=== PATIENT | male | born 1990 | race Caucasian/White ===

== ENCOUNTER 2019-08-23 23:52 | Inpatient (IN) | payer MEDICAID ==
[~2019-08-23] VITALS: Ht 182.9 cm; Wt 113.2 kg
[~2019-08-23 23:52] MED LIST: FAMO20TA5 PO; FERR325T72 PO; FOLI1TAB16 PO; GABA600T7 PO; HALO5TAB PO; HYDR25TA PO; LORA0.5T PO; MULT1TAB52 PO; OLAN5TAB3 PO; OXYC5CAP PO; PRAZ1CAP2 PO; SERT50TA PO; THIA100T57 PO; TRAZ-86 PO
[2019-08-24] VITALS (23 sets, daily range): BP systolic 91–155; BP diastolic 58–99
[2019-08-24] MEDS ORDERED: SUCCINYLCHOLINE 200 MG/10 ML VIAL. ONE (00:11)
[2019-08-24] MEDS ORDERED: PROPOFOL 50 ML IV ONE ×2 (00:21→02:17)
[2019-08-24 00:23] LABS: BASO # 0.1 x10^3/uL (0.0-0.2); BASO % 1 % (0-3); EOS # 0.1 x10^3/uL (0.0-0.7); EOS % 1 % (0-3); HEMATOCRIT 43.6 % (39.0-53.0); HEMOGLOBIN 14.4 g/dL (13.0-17.5); LYMPH # 1.4 x10^3/uL (1.0-4.8); LYMPH % 25 % (24-48); MEAN CORPUSCULAR HEMOGLOBIN 34 pg (25-35); MEAN CORPUSCULAR HGB CONC 33 g/dL (31-37); MEAN CORPUSCULAR VOLUME 104 fL (79-100); MONO # 0.4 x10^3/uL (0.0-1.1); MONO % 8 % (0-9); NEUT # 3.7 x10^3/uL (1.8-7.7); NEUT % 66 % (31-73); PLATELET COUNT 56 x10^3/uL (140-400); RED BLOOD COUNT 4.19 x10^6/uL (4.30-5.70); WHITE BLOOD COUNT 5.6 x10^3/uL (4.0-11.0)
[2019-08-24] MEDS: PROPOFOL 100 ML IV PRN ×6 (00:26→22:38)
[2019-08-24 00:35] LABS: CALCIUM 9.1 mg/dL (8.5-10.1); CREATININE 0.9 mg/dL (0.7-1.3); GFR 99.8; POTASSIUM 3.4 mmol/L (3.5-5.1)
[2019-08-24 00:38] LABS: ACETAMIN < 2 mcg/ml (10-30); ETHANOL 226 mg/dL (0-10); SALIC < 2.8 mg/dL (2.8-20.0)
--- NOTE | 2019-08-24 00:42 | PHYS DOC ---
Past Medical History Past Medical History: Depression, Schizophrenia Additional Past Medical Histor: TACHYCARDIA, alpha 1 antitrypsin deficiency, DDD Past Surgical History: No Surgical History Alcohol Use: Heavy Drug Use: None Adult General Chief Complaint Chief Complaint: OVERDOSE HPI HPI 29-year-old male with past medical history depression, alcohol abuse presents to the emergency department after intentional drug overdose as well as acute alcohol intoxication. She apparently took a handful of medications included Zoloft and gabapentin as well as drank alcohol tonight. Girlfriend called EMS. Patient arrived in the emergency department drowsy on exam, he was aggressive with regards to nursing staff and harm to himself. He was initially placed on 4. restraints. Given unknown amount of medications and concern for sedation and saturations already 88-90% on 3 L of oxygen, was elected to intubate the patient at that time via RSI. Review of systems initially unobtainable, patient was nonc ooperative. Review of Systems Review of Systems ROS unobtainable 2/2 AMS, ETOH intoxication All other systems were reviewed and found to be within normal limits, except as documented in this note. Current Medications Current Medications Current Medications Medications (Trade) Dose Ordered Sig/Renee Start Time Stop Time Status Last Admin Dose Admin Chlorhexidine Gluconate (Peridex) 15 ml BID 08/24/19 09:00 Etomidate (Amidate) 20 mg 1X ONCE 08/24/19 01:45 08/24/19 01:46 DC 08/24/19 02:09 20 MG Fentanyl Citrate (Fentanyl 2ml Vial) 50 mcg PRN Q1HR PRN 08/24/19 00:30 Midazolam HCl (Versed) 1 mg PRN Q30MIN PRN 08/24/19 00:30 Morphine Sulfate (Morphine Sulfate) 2 mg PRN Q1HR PRN 08/24/19 00:30 Propofol 50 ml @ As Directed STK-MED ONCE 08/24/19 00:21 08/24/19 00:22 DC Succinylcholine Chloride (Anectine) 100 mg 1X ONCE 08/24/19 01:45 08/24/19 01:46 DC 08/24/19 02:09 100 MG Allergies Allergies Allergies Coded Allergies Type Severity Reaction Last Updated Verified No Known Drug Allergies 06/25/17 No Physical Exam Physical Exam Constitutional: AMS, aggressive behavior, noncooperative HENT: Normocephalic, atraumatic, bilateral external ears normal, oropharynx moist, no oral exudates, nose normal. [] Eyes: pupils pinpoint on exam Neck: Normal range of motion, no tenderness, supple, no stridor. [] Cardiovascular: tachycardia Lungs & Thorax: Bilateral breath sounds clear to auscultation [] Abdomen: Bowel sounds normal, soft, no tenderness, no masses, no pulsatile masses. [] Skin: Warm, dry, no erythema, no rash. [] Extremities: No tenderness, no cyanosis, no edema. [] Neurologic: intoxicated, GCS 9-10 Psychologic: Aggressive, altered Current Patient Data Vital Signs Vital Signs Date Time Temp Pulse Resp B/P (MAP) Pulse Ox O2 Delivery O2 Flow Rate FiO2 08/24/19 01:13 98.0 138 20 156/73 (100) 88 Room Air 98.0 Lab Values Laboratory Tests Test 08/24/19 00:07 08/24/19 00:48 White Blood Count 5.6 x10^3/uL (4.0-11.0) Red Blood Count 4.19 x10^6/uL (4.30-5.70) L Hemoglobin 14.4 g/dL (13.0-17.5) Hematocrit 43.6 % (39.0-53.0) Mean Corpuscular Volume 104 fL (79-100) H Mean Corpuscular Hemoglobin 34 pg (25-35) Mean Corpuscular Hemoglobin Concent 33 g/dL (31-37) Red Cell Distribution Width 19.0 % (11.5-14.5) H Platelet Count 56 x10^3/uL (140-400) L Neutrophils (%) (Auto) 66 % (31-73) Lymphocytes (%) (Auto) 25 % (24-48) Monocytes (%) (Auto) 8 % (0-9) Eosinophils (%) (Auto) 1 % (0-3) Basophils (%) (Auto) 1 % (0-3) Neutrophils # (Auto) 3.7 x10^3/uL (1.8-7.7) Lymphocytes # (Auto) 1.4 x10^3/uL (1.0-4.8) Monocytes # (Auto) 0.4 x10^3/uL (0.0-1.1) Eosinophils # (Auto) 0.1 x10^3/uL (0.0-0.7) Basophils # (Auto) 0.1 x10^3/uL (0.0-0.2) Sodium Level 145 mmol/L (136-145) Potassium Level 3.4 mmol/L (3.5-5.1) L Chloride Level 107 mmol/L (98-107) Carbon Dioxide Level 22 mmol/L (21-32) Anion Gap 16 (6-14) H Blood Urea Nitrogen 2 mg/dL (8-26) L Creatinine 0.9 mg/dL (0.7-1.3) Estimated GFR (Cockcroft-Gault) 99.8 BUN/Creatinine Ratio 2 (6-20) L Glucose Level 167 mg/dL (70-99) H Calcium Level 9.1 mg/dL (8.5-10.1) Total Bilirubin 6.1 mg/dL (0.2-1.0) H Aspartate Amino Transferase (AST) 158 U/L (15-37) H Alanine Aminotransferase (ALT) 79 U/L (16-63) H Alkaline Phosphatase 292 U/L (46-116) H Total Protein 7.6 g/dL (6.4-8.2) Albumin 3.3 g/dL (3.4-5.0) L Albumin/Globulin Ratio 0.8 (1.0-1.7) L Salicylates Level < 2.8 mg/dL (2.8-20.0) L Salicylate Last Dose Date Salicylate Last Dose Time Acetaminophen Level < 2 mcg/ml (10-30) L Acetaminophen Last Dose Date Acetaminophen Last Dose Time Ethyl Alcohol Level 226 mg/dL (0-10) H Urine Collection Type U cath Urine Color [place] Urine Clarity Clear Urine pH 6.5 Urine Specific [place] 1.020 Urine Protein 100 mg/dL (NEG-TRACE) Urine Glucose (UA) Negative mg/dL (NEG) Urine Ketones (Stick) Negative mg/dL (NEG) Urine Blood Negative (NEG) Urine Nitrite Negative (NEG) Urine Bilirubin Moderate (NEG) Urine Urobilinogen Dipstick 0.2 mg/dL (0.2 mg/dL) Urine Leukocyte Esterase Small (NEG) Urine RBC Occ /HPF (0-2) Urine WBC 5-10 /HPF (0-4) Urine Squamous Epithelial Cells Occ /LPF Urine Bacteria 0 /HPF (0-FEW) Urine Cellular Casts Occ /HPF Urine Hyaline Casts Many /HPF Urine Granular Casts Occasional /HPF Urine Mucus Marked /LPF Laboratory Tests 08/24/19 00:07 Laboratory Tests 08/24/19 00:07 EKG EKG EKG reviewed, normal sinus rhythm, heart rate 94, no evidence of acute ST or T wave change appreciated.[] Interpretation Time: EKG interpretation time 0208 Radiology/Procedures Radiology/Procedures [facility] [address] [place] [address] IMAGING REPORT Signed PATIENT: DENISHA MCFARLAND ACCOUNT: [id number] : 1990 LOCATION: ER AGE: 29 SEX: M EXAM STATUS: REG ER ORD. PHYSICIAN: IRMA COOPER MD REASON: s/p intubation PROCEDURE: CHEST AP ONLY EXAM: CHEST 1 VIEW History: Intubation COMPARISON: 08/17/2019 TECHNIQUE: Single portable radiograph of the chest FINDINGS: The ET tube is identified in the trachea at the level of the clavicles. The feeding tube is seen below the diaphragm in the stomach. Mild prominent bilateral perihilar interstitial lung markings. IMPRESSION: 1. Mild prominent bilateral perihilar interstitial lung markings likely mild congestive changes. 2. ET tube, feeding tube in place. Electronically signed by: Scottie Daigle MD (08/24/2019 1:15 AM) [facility] DICTATED and SIGNED BY: SCOTTIE DAIGLE MD DATE: 08/24/19 0115 [] Course & Med Decision Making Course & Med Decision Making Pertinent Labs and Imaging studies reviewed. (See chart for details) []29-year-old male with past medical history depression, alcohol abuse presents to the emergency department after intentional drug overdose as well as acute alcohol intoxication. She apparently took a handful of medications included Zoloft and gabapentin as well as drank alcohol tonight. Girlfriend called EMS. Patient arrived in the emergency department drowsy on exam, he was aggressive with regards to nursing staff and harm to himself. He was initially placed on 4. restraints. Given unknown amount of medications and concern for sedation and saturations already 88-90% on 3 L of oxygen, was elected to intubate the patient at that time via RSI. Review of systems initially unobtainable, patient was noncooperative. Labs and imaging reviewed. Tylenol, salicylate, alcohol reviewed. ETOH 226. Chest x-ray reveals no evidence of acute consolidation. Again unknown amount of Zoloft and gabapentin taken. Poison control recommendations for evaluation of blood pressure watching for hypotension as well as tachycardia. Discussed admission with primary care physician (DR LUCIANO). Patient admitted to the ICU given to patient. Dragon Disclaimer Dragon Disclaimer This electronic medical record was generated, in whole or in part, using a voice recognition dictation system. Intubation Procedure Intub Indication: Intentional drug overdose, ETOH intoxication, desaturations, aggressive behavior, potential harm to himself and nursing staff Consent: Unable to give consent due to emergent nature. Medications Used: see nursing note Procedure: The patient was placed in the appropriate position. Intubation was performed MAC 4 with 7.5 endotracheal tube, 22 cm at teeth. Initial confirmation of placement included bilateral breath sounds, tube fogging, adequate chest rise, adequate pulse oximetry reading. A chest x-ray to verify correct placement of the tube showed appropriate tube position. The patient tolerated the procedure well. Complications: none. Departure Departure Impression: Primary Impression: Intentional overdose of drug in tablet form Additional Impressions: Aggressive behavior Alcohol intoxication Alcoholic hepatitis Disposition: 09 ADMITTED INPATIENT Admitting Physician: Sonam Luciano Condition: STABLE Referrals: SONAM LUCIANO MD (PCP) Problem Qualifiers Additional Impressions: Alcohol intoxication Complication of substance-induced condition: with unspecified complication Qualified Codes: F10.929 - Alcohol use, unspecified with intoxication, unspecified Alcoholic hepatitis Ascites presence: with ascites Qualified Codes: K70.11 - Alcoholic hepatitis with ascites IRMA COOPER MD Aug 24, 2019 00:42
[2019-08-24 00:43] LABS: ALBUMIN 3.3 g/dL (3.4-5.0); ALBUMIN/GLOBULIN RATIO 0.8 (1.0-1.7); TOTAL BILIRUBIN 6.1 mg/dL (0.2-1.0); TOTAL PROTEIN 7.6 g/dL (6.4-8.2)
[2019-08-24] MEDS ORDERED: ETOMIDATE 20 MG/10 ML VIAL. IV ONE ×2 (01:02→01:45)
[2019-08-24 01:03] LABS: BILIRUBIN,URINE MODERATE (NEG); CLARITY,URINE CLEAR; COLOR,URINE ORANGE; NITRITE,URINE NEGATIVE (NEG); PH,URINE 6.5; PROTEIN,URINE 100 mg/dL (NEG-TRACE); UROBILINOGEN,URINE 0.2 mg/dL (0.2 mg/dL)
[2019-08-24 01:14] LABS: BACTERIA,URINE 0 /HPF (0-FEW); RBC,URINE OCC /HPF (0-2)
[2019-08-24 01:15] LABS: GRANULAR CASTS,URINE OCCASIONAL /HPF; HYALINE CASTS, URINE MANY /HPF; SQUAMOUS EPITHELIAL CELL,UR OCC /LPF
--- NOTE | 2019-08-24 01:18 | RAD ---
EXAM: CHEST 1 VIEW History: Intubation COMPARISON: 08/17/2019 TECHNIQUE: Single portable radiograph of the chest FINDINGS: The ET tube is identified in the trachea at the level of the clavicles. The feeding tube is seen below the diaphragm in the stomach. Mild prominent bilateral perihilar interstitial lung markings. IMPRESSION: 1. Mild prominent bilateral perihilar interstitial lung markings likely mild congestive changes. 2. ET tube, feeding tube in place. Electronically signed by: Scottie Daigle MD (08/24/2019 1:15 AM) [facility]
[2019-08-24] MEDS ORDERED: SUCCINYLCHOLINE 200 MG/10 ML VIAL. IV ONE (01:45)
[2019-08-24 02:18] LABS: BASE EXCESS COOX -3 mmol/L (-3-3); HCO3 COOX 21 mmol/L (21-28); METHEMOGLOBIN 0.5 % (0.0-1.9); OXYHEMOGLOBIN 96.7 %; PCO2 COOX 37 mmHg (35-46); PO2 COOX 152 mmHg (85-108); SAT O2 COOX 99 % (92-99)
[2019-08-24] MEDS ORDERED: ONDANSETRON PF 4 MG/2 ML VIAL. IV PRN (02:30)
[2019-08-24] MEDS ORDERED: IV NORMAL SALINE 1000ML BAG 1,000 ML IV ONE (03:30)
[2019-08-24] MEDS: MIDAZOLAM HCL/PF 2 MG/2 ML VIAL. IV PRN ×2 (04:30→20:32)
[2019-08-24] MEDS: fentaNYL PF VIAL 100 MCG/2 ML VIAL IV PRN ×8 (04:30→22:39)
[2019-08-24] MEDS: IV NORMAL SALINE 1000ML BAG 1,000 ML IV SCH ×2 (04:35→13:31)
--- NOTE | 2019-08-24 06:13 | NUR ---
Patient admitted to ICU room 109 from ED. Report from DENNIS Maradiaga from the ED. Upon arrival to ICU patient with propofol infusing. Intubated, OG and singer in place. Family not present on admit. VSS and sedated but alert to pain. Will continue to monitor.
--- NOTE | 2019-08-24 07:36 | EKG ---
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
[2019-08-24] MEDS: IPRATRPIUM/ALBUTEROL 0.5/2.5MG 3 ML NEBU. NEB SCH ×4 (08:00→19:55)
[2019-08-24 08:34] LABS: BASE EXCESS ABG -3 mmol/L (-3-3); HCO3 ABG 21 mmol/L (21-28); PCO2 ABG 32 mmHg (35-46); PO2 ABG 101 mmHg (85-108); SAT O2 ABG 98 % (92-99)
[2019-08-24] MEDS: CHLORHEXIDINE 0.12% 15 ML MOUTHWASH. MM SCH ×2 (09:12→20:32)
[2019-08-24 09:52] LABS: FIO2 ABG 60
--- NOTE | 2019-08-24 10:25 | HP ---
ADMIT DATE: 08/24/2019 CHIEF COMPLAINT: Ingestion. HISTORY OF PRESENT ILLNESS: The patient is a pleasant 29-year-old male with a long history of previous suicide attempts and schizophrenia and alcohol issues and depression. At this time, he took a handful of gabapentin and Zoloft. He has now been intubated. He is in the ICU. PAST MEDICAL HISTORY: Depression, schizophrenia, tachycardia, alpha-1 antitrypsin deficiency, degenerative joint disease, heavy alcohol use, suicide attempts. ALLERGIES: None. FAMILY HISTORY: Hypertension. SOCIAL HISTORY: He drinks and smokes, no drugs that I am aware of. MEDICATIONS: Reviewed, please refer to the MRAD. REVIEW OF SYSTEMS: Unable to obtain. The patient is intubated. PHYSICAL EXAMINATION: VITALS: Within normal limits and are stable. GENERAL: No apparent distress. Alert and oriented. HEENT: He has an ET tube in place. NECK: Supple, no JVD, no thyromegaly was noted. LUNGS: He is on the vent. HEART: RRR, S1, S2 present. Peripheral pulses intact, no obvious murmurs were noted. ABDOMEN: Soft, nontender. Positive bowel sounds no organomegaly, normal bowel sounds. EXTREMITIES: Without any cyanosis, clubbing, or edema. Pedal pulses intact, Homans sign is negative. NEUROLOGIC: He is sedated. PSYCHIATRIC: Normal affect, normal mood. Stable. SKIN: No ulcerations or rashes, good skin turgor, no jaundice. VASCULAR: Good capillary refill, neurovascular bundle appears to be intact. LABORATORY DATA: White count 5.6, hemoglobin 14.4, platelets 56. Electrolytes: Sodium 145, potassium 3.4, chloride 107, bicarbonate 22. BUN is 2, creatinine 0.9. Glucose 167. AST and ALT are high at 158 and 79, respectively, consistent with probable alcohol issues. Alkaline phosphatase is also high at 292. Total bilirubin high at 6.1. His urine shows a small amount of leukocyte esterase and 5-10 white cells. ASSESSMENT AND PLAN: Ingestion of medications, probably secondary to suicide attempt with respiratory failure, hypokalemia, transaminitis, thrombocytopenia, and urinary tract infection. The patient has been admitted and is intubated in the ICU. He is critically ill. We have consulted Pulmonary. We have consulted the Psychiatric assessment team. Replaced his potassium, IV fluids, vent weaning. Consult GI for his transaminitis. DVT prophylaxis. Full code. PROGNOSIS: Guarded. TOTAL TIME: 32 minutes. ALISON VELÁSQUEZ DO DR: FRANKIE/alysia JOB#: [id number] / [id number]
--- NOTE | 2019-08-24 11:01 | CONS ---
DATE OF CONSULTATION: 08/24/2019 PULMONARY CONSULTATION ATTENDING PHYSICIAN: Dr. Hogan. REASON FOR CONSULTATION: Respiratory failure, drug overdose. HISTORY OF PRESENT ILLNESS: The patient is a 29-year-old male who has history of schizophrenia, history of previous suicidal attempts, and history of alcohol abuse. He was brought into the hospital after he took a handful of gabapentin and Zoloft. Exact quantity is unknown. He was intubated in the Emergency Room. He was transferred to ICU. His ABGs initially showed a pH of 7.38, pCO2 of 37 and a pO2 of 152 on 100% FiO2. Chest x-ray shows poor inspiratory effort with high diaphragms and possible basal atelectasis and small effusions. The patient has been currently sedated, on assist control mode, 60% FiO2. I have been asked to see him for further evaluation. PAST MEDICAL HISTORY: Significant for depression, schizophrenia, history of alpha-1 antitrypsin deficiency, DJD, heavy alcohol abuse, and suicidal attempts. PAST SURGICAL HISTORY: Unknown. ALLERGIES: None. FAMILY HISTORY: Hypertension. SOCIAL HISTORY: He drinks and smokes cigarettes. MEDICATIONS: Reviewed as listed in the MRAD including DuoNebs. REVIEW OF SYSTEMS: Unable to obtain from the patient. PHYSICAL EXAMINATION: GENERAL: He is intubated and sedated. VITAL SIGNS: Blood pressure 106/59, pulse ox 100%, and T-max of 99.1. HEENT: Sclerae nonicteric. NECK: Supple. LUNGS: With diminished breath sounds. CARDIOVASCULAR: With a regular rate. ABDOMEN: Soft. EXTREMITIES: With trace pitting edema. LABORATORY DATA: Reviewed. His ABGs are discussed in my history of present illness. His AST 158, ALT 79, bilirubin of 6.1. Albumin 3.3, BUN 2 and a creatinine of 0.9. White cell count 5.6, hemoglobin 14.4, platelets 56. Urine drug screen positive for alcohol. IMPRESSION: 1. Acute respiratory failure secondary to acute toxic and metabolic encephalopathy. 2. Acute drug ingestion with gabapentin and Zoloft. 3. Abnormal chest x-ray with poor inspiratory effort. 4. Alcoholic liver disease with possible acute alcoholic hepatitis with markedly increased bilirubin. 5. History of schizophrenia. 6. History of prior suicidal attempts. RECOMMENDATIONS: 1. We will continue with present assist control mode. 2. We will wait 24 hours until the half-life of medications is over and the patient starts to have no sedative effect of medications. 3. We will consider CPAP trial in the next 24 hours. 4. Follow GI recommendations. 5. We will need social sciences department chair help and psychiatric help post-extubation. 6. We will start enteral nutrition. 7. Monitor chest x-ray. 8. Discussed with RN. We will follow along with you. Critical care time 37 minutes. ANEESH BRONSON MD DR: JUANITA/nts JOB#: [id number] / [id number]
[2019-08-24] MEDS ORDERED: DEXTROSE 50% 25 GM / 50ML DISP.SYRIN. IV ONE (11:31)
--- NOTE | 2019-08-24 12:04 | NUR ---
SS following for discharge planning. SS reviewed pt chart. Pt is from home and was recently discharged from [facility] last week. Pt is currently on the vent. SS notified PAT team that pt will need to be seen when medically stable for substance abuse and suicidal ideations.
--- NOTE | 2019-08-24 12:53 | PDOC ---
Subjective: Subjective: Please see recent GI consults including one from 08/18/19 and following progress notes (last one from yesterday). I saw him in ICU this morning. Per chart and staff - discharged yesterday, went home and took a handful of Zoloft and Gabapentin, also drank alcohol, and called his friend. Objective: Vital Signs: Vital Signs Date Time Temp Pulse Resp B/P (MAP) Pulse Ox O2 Delivery O2 Flow Rate FiO2 08/24/19 12:09 97 Ventilator 08/24/19 11:00 85 16 103/59 (74) 08/24/19 08:00 99.1 99.1 Labs: Laboratory Tests Test 08/24/19 00:07 08/24/19 00:48 08/24/19 02:19 08/24/19 08:00 White Blood Count 5.6 x10^3/uL Red Blood Count 4.19 x10^6/uL Hemoglobin 14.4 g/dL Hematocrit 43.6 % Mean Corpuscular Volume 104 fL Mean Corpuscular Hemoglobin 34 pg Mean Corpuscular Hemoglobin Concent 33 g/dL Red Cell Distribution Width 19.0 % Platelet Count 56 x10^3/uL Neutrophils (%) (Auto) 66 % Lymphocytes (%) (Auto) 25 % Monocytes (%) (Auto) 8 % Eosinophils (%) (Auto) 1 % Basophils (%) (Auto) 1 % Neutrophils # (Auto) 3.7 x10^3/uL Lymphocytes # (Auto) 1.4 x10^3/uL Monocytes # (Auto) 0.4 x10^3/uL Eosinophils # (Auto) 0.1 x10^3/uL Basophils # (Auto) 0.1 x10^3/uL Sodium Level 145 mmol/L Potassium Level 3.4 mmol/L Chloride Level 107 mmol/L Carbon Dioxide Level 22 mmol/L Anion Gap 16 Blood Urea Nitrogen 2 mg/dL Creatinine 0.9 mg/dL Estimated GFR (Cockcroft-Gault) 99.8 BUN/Creatinine Ratio 2 Glucose Level 167 mg/dL Calcium Level 9.1 mg/dL Total Bilirubin 6.1 mg/dL Aspartate Amino Transf (AST/SGOT) 158 U/L Alanine Aminotransferase (ALT/SGPT) 79 U/L Alkaline Phosphatase 292 U/L Creatine Kinase 103 U/L Total Protein 7.6 g/dL Albumin 3.3 g/dL Albumin/Globulin Ratio 0.8 Salicylates Level < 2.8 mg/dL Salicylate Last Dose Date Salicylate Last Dose Time Acetaminophen Level < 2 mcg/ml Acetaminophen Last Dose Date Acetaminophen Last Dose Time Ethyl Alcohol Level 226 mg/dL Urine Collection Type U cath Urine Color [place] Urine Clarity Clear Urine pH 6.5 Urine Specific [place] 1.020 Urine Protein 100 mg/dL Urine Glucose (UA) Negative mg/dL Urine Ketones (Stick) Negative mg/dL Urine Blood Negative Urine Nitrite Negative Urine Bilirubin Moderate Urine Urobilinogen Dipstick 0.2 mg/dL Urine Leukocyte Esterase Small Urine RBC Occ /HPF Urine WBC 5-10 /HPF Urine Squamous Epithelial Cells Occ /LPF Urine Bacteria 0 /HPF Urine Cellular Casts Occ /HPF Urine Hyaline Casts Many /HPF Urine Granular Casts Occasional /HPF Urine Mucus Marked /LPF O2 Saturation 99 % 98 % Arterial Blood pH 7.38 7.43 Arterial Blood pCO2 at Patient Temp 37 mmHg 32 mmHg Arterial Blood pO2 at Patient Temp 152 mmHg 101 mmHg Arterial Blood HCO3 21 mmol/L 21 mmol/L Arterial Blood Base Excess -3 mmol/L -3 mmol/L Oxyhemoglobin 96.7 % Methemoglobin 0.5 % Carbon Monoxide, Quantitative 1.5 % FiO2 100 60 Test 08/24/19 11:30 Glucose (Fingerstick) 78 mg/dL Imaging: CXR 08/24/19 IMPRESSION: 1. Mild prominent bilateral perihilar interstitial lung markings likely mild congestive changes. 2. ET tube, feeding tube in place. PE: GEN: intubated HEENT: watery red/minimal bilious material in OG LUNGS: vent HEART: RRR ABD: quiet, soft, stable appearance compared to yesterday EXTREMITY: No edema SKIN: No rashes, no jaundice NEURO/PSYCH: sedated A/P: Intentional drug overdose, alcohol abuse Cirrhosis w/ esophageal varices, portal hypertensive gastropathy - last EGD 07/2019 w/ GERD, non-bleeding varices/scarring, small esophageal ulcerations (GERD vs Tarsha-Andrade), portal hypertensive gastropathy AAT MZ phenotype Chronic thrombocytopenia -- Add IV PPI. JANET STEWART Aug 24, 2019 12:53
[2019-08-24] MEDS: PANTOPRAZOLE IV PUSH 40 MG VIAL. IVP SCH (13:33)
--- NOTE | 2019-08-24 16:20 | RAD ---
Single view of the chest. 08/24/2019 9:00 AM Indication: Vent support Comparison: CXR earlier today Findings: ET tube in expected position. Enteric tube extends below the diaphragm, however the tip is non visualized. The right upper lung infiltrate is improved. Probably basilar atelectasis noted. Impression: 1. Improved right upper lung infiltrate. 2. Basilar atelectasis. Electronically signed by: Pradip Mccarty MD (08/24/2019 4:17 PM) [facility]
[2019-08-24 16:49] LABS: ALBUMIN 2.6 g/dL (3.4-5.0); ALBUMIN/GLOBULIN RATIO 0.7 (1.0-1.7); CALCIUM 8.2 mg/dL (8.5-10.1); CREATININE 0.7 mg/dL (0.7-1.3); DIRECT BILIRUBIN 3.3 mg/dL (0.0-0.2); GFR 133.3; POTASSIUM 3.4 mmol/L (3.5-5.1); TOTAL BILIRUBIN 3.7 mg/dL (0.2-1.0); TOTAL PROTEIN 6.3 g/dL (6.4-8.2)
[2019-08-24] MEDS: MORPHINE SULFATE 2 MG/ML VIAL. IV PRN ×2 (17:15→20:32)
--- NOTE | 2019-08-24 21:08 | NUR ---
Patient more restless in the bed despite propofol gtt, and versed, fentanyl, and morphine IV push. Patient is diaphoretic, has tremors in the hands, and attempting to pull at the ETT. Notified Dr. Connolly, informed him of increased restlessness and intent to intubate tomorrow, ordered a versed gtt at a low rate and titrate to goal sedation. Will continue to monitor.
[2019-08-24] MEDS ORDERED: MIDAZOLAM 100mg/100ml NS BAG 100 ML IV PRN (21:15)
[2019-08-25] VITALS (24 sets, daily range): BP systolic 96–161; BP diastolic 52–88
[2019-08-25] MEDS: IV NORMAL SALINE 1000ML BAG 1,000 ML IV SCH ×3 (01:31→20:18)
[2019-08-25] MEDS: fentaNYL PF VIAL 100 MCG/2 ML VIAL IV PRN ×2 (01:32→05:00)
[2019-08-25] MEDS: PROPOFOL 100 ML IV PRN ×3 (01:32→09:16)
[2019-08-25 04:41] LABS: BASO % 1 % (0-3); EOS # 0.1 x10^3/uL (0.0-0.7); EOS % 2 % (0-3); HEMATOCRIT 37.5 % (39.0-53.0); HEMOGLOBIN 12.4 g/dL (13.0-17.5); LYMPH # 0.9 x10^3/uL (1.0-4.8); LYMPH % 28 % (24-48); MEAN CORPUSCULAR HEMOGLOBIN 34 pg (25-35); MEAN CORPUSCULAR HGB CONC 33 g/dL (31-37); MEAN CORPUSCULAR VOLUME 103 fL (79-100); MONO # 0.4 x10^3/uL (0.0-1.1); MONO % 13 % (0-9); NEUT # 1.9 x10^3/uL (1.8-7.7); NEUT % 57 % (31-73); PLATELET COUNT 53 x10^3/uL (140-400); RED BLOOD COUNT 3.64 x10^6/uL (4.30-5.70); WHITE BLOOD COUNT 3.3 x10^3/uL (4.0-11.0)
[2019-08-25 05:06] LABS: ALBUMIN 2.5 g/dL (3.4-5.0); ALBUMIN/GLOBULIN RATIO 0.7 (1.0-1.7); CALCIUM 8.2 mg/dL (8.5-10.1); CREATININE 0.8 mg/dL (0.7-1.3); GFR 114.3; MAGNESIUM 1.5 mg/dL (1.8-2.4); POTASSIUM 3.5 mmol/L (3.5-5.1); TOTAL BILIRUBIN 3.4 mg/dL (0.2-1.0); TOTAL PROTEIN 6.2 g/dL (6.4-8.2)
[2019-08-25] MEDS: CHLORHEXIDINE 0.12% 15 ML MOUTHWASH. MM SCH (07:42)
[2019-08-25] MEDS: PANTOPRAZOLE IV PUSH 40 MG VIAL. IVP SCH (07:42)
--- NOTE | 2019-08-25 07:48 | RAD ---
CHEST AP ONLY Clinical Indication: On ventilator Comparison: 08/24/2019 AP view of the chest. Findings: Portable semiupright frontal view of the chest was obtained. Enteric tube terminates in the subdiaphragmatic region. Endotracheal tube again identified. Heart size is enlarged and this may in part be technique related. Left basilar retrocardiac consolidation is present with air bronchograms noted. There is no pneumothorax. Small left pleural effusion is present. No acute bone abnormality. IMPRESSION: Retrocardiac consolidation is slightly increased. Electronically signed by: Aleks Garg MD (08/25/2019 7:45 AM) [facility]
[2019-08-25 10:21] LABS: BASE EXCESS ABG -2 mmol/L (-3-3); HCO3 ABG 21 mmol/L (21-28); PCO2 ABG 29 mmHg (35-46); PO2 ABG 63 mmHg (85-108); SAT O2 ABG 93 % (92-99)
[2019-08-25 10:23] LABS: FIO2 ABG 40
[2019-08-25] MEDS ORDERED: IV NORMAL SALINE 500ML BAG 500 ML IV PRN (10:30)
[2019-08-25] MEDS ORDERED: ATROPINE 0.5 MG/5 ML DISP.SYRINGE. IV PRN (10:30)
[2019-08-25] MEDS ORDERED: DEXMEDETOMIDINE 400 MCG in IV NORMAL SALINE 100ML 96 ML IV PRN (10:30)
--- NOTE | 2019-08-25 10:50 | PDOC ---
PULMONARY PROGRESS NOTES Subjective intubated/ sedated/ periods of agitation Vitals Vital Signs Date Time Temp Pulse Resp B/P (MAP) Pulse Ox O2 Delivery O2 Flow Rate FiO2 08/25/19 10:36 96 Ventilator 08/25/19 09:00 66 16 102/60 (74) 08/25/19 08:00 99.1 99.1 Lungs: Clear Cardiovascular: S1 Abdomen: Soft Extremities: No Edema Skin: Warm Labs Laboratory Tests Test 08/24/19 00:07 08/24/19 00:48 08/24/19 02:19 08/24/19 08:00 White Blood Count 5.6 x10^3/uL (4.0-11.0) Red Blood Count 4.19 x10^6/uL (4.30-5.70) Hemoglobin 14.4 g/dL (13.0-17.5) Hematocrit 43.6 % (39.0-53.0) Mean Corpuscular Volume 104 fL (79-100) Mean Corpuscular Hemoglobin 34 pg (25-35) Mean Corpuscular Hemoglobin Concent 33 g/dL (31-37) Red Cell Distribution Width 19.0 % (11.5-14.5) Platelet Count 56 x10^3/uL (140-400) Neutrophils (%) (Auto) 66 % (31-73) Lymphocytes (%) (Auto) 25 % (24-48) Monocytes (%) (Auto) 8 % (0-9) Eosinophils (%) (Auto) 1 % (0-3) Basophils (%) (Auto) 1 % (0-3) Neutrophils # (Auto) 3.7 x10^3/uL (1.8-7.7) Lymphocytes # (Auto) 1.4 x10^3/uL (1.0-4.8) Monocytes # (Auto) 0.4 x10^3/uL (0.0-1.1) Eosinophils # (Auto) 0.1 x10^3/uL (0.0-0.7) Basophils # (Auto) 0.1 x10^3/uL (0.0-0.2) Sodium Level 145 mmol/L (136-145) Potassium Level 3.4 mmol/L (3.5-5.1) Chloride Level 107 mmol/L (98-107) Carbon Dioxide Level 22 mmol/L (21-32) Anion Gap 16 (6-14) Blood Urea Nitrogen 2 mg/dL (8-26) Creatinine 0.9 mg/dL (0.7-1.3) Estimated GFR (Cockcroft-Gault) 99.8 BUN/Creatinine Ratio 2 (6-20) Glucose Level 167 mg/dL (70-99) Calcium Level 9.1 mg/dL (8.5-10.1) Total Bilirubin 6.1 mg/dL (0.2-1.0) Aspartate Amino Transf (AST/SGOT) 158 U/L (15-37) Alanine Aminotransferase (ALT/SGPT) 79 U/L (16-63) Alkaline Phosphatase 292 U/L (46-116) Creatine Kinase 103 U/L (39-308) Total Protein 7.6 g/dL (6.4-8.2) Albumin 3.3 g/dL (3.4-5.0) Albumin/Globulin Ratio 0.8 (1.0-1.7) Salicylates Level < 2.8 mg/dL (2.8-20.0) Salicylate Last Dose Date Salicylate Last Dose Time Acetaminophen Level < 2 mcg/ml (10-30) Acetaminophen Last Dose Date Acetaminophen Last Dose Time Ethyl Alcohol Level 226 mg/dL (0-10) Urine Collection Type U cath Urine Color [place] Urine Clarity Clear Urine pH 6.5 Urine Specific [place] 1.020 Urine Protein 100 mg/dL (NEG-TRACE) Urine Glucose (UA) Negative mg/dL (NEG) Urine Ketones (Stick) Negative mg/dL (NEG) Urine Blood Negative (NEG) Urine Nitrite Negative (NEG) Urine Bilirubin Moderate (NEG) Urine Urobilinogen Dipstick 0.2 mg/dL (0.2 mg/dL) Urine Leukocyte Esterase Small (NEG) Urine RBC Occ /HPF (0-2) Urine WBC 5-10 /HPF (0-4) Urine Squamous Epithelial Cells Occ /LPF Urine Bacteria 0 /HPF (0-FEW) Urine Cellular Casts Occ /HPF Urine Hyaline Casts Many /HPF Urine Granular Casts Occasional /HPF Urine Mucus Marked /LPF O2 Saturation 99 % (92-99) 98 % (92-99) Arterial Blood pH 7.38 (7.35-7.45) 7.43 (7.35-7.45) Arterial Blood pCO2 at Patient Temp 37 mmHg (35-46) 32 mmHg (35-46) Arterial Blood pO2 at Patient Temp 152 mmHg (85-108) 101 mmHg (85-108) Arterial Blood HCO3 21 mmol/L (21-28) 21 mmol/L (21-28) Arterial Blood Base Excess -3 mmol/L (-3-3) -3 mmol/L (-3-3) Oxyhemoglobin 96.7 % Methemoglobin 0.5 % (0.0-1.9) Carbon Monoxide, Quantitative 1.5 % (0.0-1.9) FiO2 100 60 Test 08/24/19 11:30 08/24/19 12:45 08/24/19 16:24 08/25/19 04:05 Glucose (Fingerstick) 78 mg/dL (70-99) 82 mg/dL (70-99) Sodium Level 146 mmol/L (136-145) 146 mmol/L (136-145) Potassium Level 3.4 mmol/L (3.5-5.1) 3.5 mmol/L (3.5-5.1) Chloride Level 110 mmol/L (98-107) 112 mmol/L (98-107) Carbon Dioxide Level 22 mmol/L (21-32) 24 mmol/L (21-32) Anion Gap 14 (6-14) 10 (6-14) Blood Urea Nitrogen 2 mg/dL (8-26) 4 mg/dL (8-26) Creatinine 0.7 mg/dL (0.7-1.3) 0.8 mg/dL (0.7-1.3) Estimated GFR (Cockcroft-Gault) 133.3 114.3 BUN/Creatinine Ratio 3 (6-20) 5 (6-20) Glucose Level 93 mg/dL (70-99) 86 mg/dL (70-99) Calcium Level 8.2 mg/dL (8.5-10.1) 8.2 mg/dL (8.5-10.1) Total Bilirubin 3.7 mg/dL (0.2-1.0) 3.4 mg/dL (0.2-1.0) Direct Bilirubin 3.3 mg/dL (0.0-0.2) Aspartate Amino Transf (AST/SGOT) 132 U/L (15-37) 130 U/L (15-37) Alanine Aminotransferase (ALT/SGPT) 61 U/L (16-63) 53 U/L (16-63) Alkaline Phosphatase 221 U/L (46-116) 220 U/L (46-116) Total Protein 6.3 g/dL (6.4-8.2) 6.2 g/dL (6.4-8.2) Albumin 2.6 g/dL (3.4-5.0) 2.5 g/dL (3.4-5.0) Albumin/Globulin Ratio 0.7 (1.0-1.7) 0.7 (1.0-1.7) White Blood Count 3.3 x10^3/uL (4.0-11.0) Red Blood Count 3.64 x10^6/uL (4.30-5.70) Hemoglobin 12.4 g/dL (13.0-17.5) Hematocrit 37.5 % (39.0-53.0) Mean Corpuscular Volume 103 fL (79-100) Mean Corpuscular Hemoglobin 34 pg (25-35) Mean Corpuscular Hemoglobin Concent 33 g/dL (31-37) Red Cell Distribution Width 19.0 % (11.5-14.5) Platelet Count 53 x10^3/uL (140-400) Neutrophils (%) (Auto) 57 % (31-73) Lymphocytes (%) (Auto) 28 % (24-48) Monocytes (%) (Auto) 13 % (0-9) Eosinophils (%) (Auto) 2 % (0-3) Basophils (%) (Auto) 1 % (0-3) Neutrophils # (Auto) 1.9 x10^3/uL (1.8-7.7) Lymphocytes # (Auto) 0.9 x10^3/uL (1.0-4.8) Monocytes # (Auto) 0.4 x10^3/uL (0.0-1.1) Eosinophils # (Auto) 0.1 x10^3/uL (0.0-0.7) Basophils # (Auto) 0.0 x10^3/uL (0.0-0.2) Magnesium Level 1.5 mg/dL (1.8-2.4) Creatine Kinase 31 U/L (39-308) Test 08/25/19 08:00 O2 Saturation 93 % (92-99) Arterial Blood pH 7.47 (7.35-7.45) Arterial Blood pCO2 at Patient Temp 29 mmHg (35-46) Arterial Blood pO2 at Patient Temp 63 mmHg (85-108) Arterial Blood HCO3 21 mmol/L (21-28) Arterial Blood Base Excess -2 mmol/L (-3-3) FiO2 40 Laboratory Tests Test 08/24/19 11:30 08/24/19 12:45 08/24/19 16:24 08/25/19 04:05 Glucose (Fingerstick) 78 mg/dL (70-99) 82 mg/dL (70-99) Sodium Level 146 mmol/L (136-145) 146 mmol/L (136-145) Potassium Level 3.4 mmol/L (3.5-5.1) 3.5 mmol/L (3.5-5.1) Chloride Level 110 mmol/L (98-107) 112 mmol/L (98-107) Carbon Dioxide Level 22 mmol/L (21-32) 24 mmol/L (21-32) Anion Gap 14 (6-14) 10 (6-14) Blood Urea Nitrogen 2 mg/dL (8-26) 4 mg/dL (8-26) Creatinine 0.7 mg/dL (0.7-1.3) 0.8 mg/dL (0.7-1.3) Estimated GFR (Cockcroft-Gault) 133.3 114.3 BUN/Creatinine Ratio 3 (6-20) 5 (6-20) Glucose Level 93 mg/dL (70-99) 86 mg/dL (70-99) Calcium Level 8.2 mg/dL (8.5-10.1) 8.2 mg/dL (8.5-10.1) Total Bilirubin 3.7 mg/dL (0.2-1.0) 3.4 mg/dL (0.2-1.0) Direct Bilirubin 3.3 mg/dL (0.0-0.2) Aspartate Amino Transf (AST/SGOT) 132 U/L (15-37) 130 U/L (15-37) Alanine Aminotransferase (ALT/SGPT) 61 U/L (16-63) 53 U/L (16-63) Alkaline Phosphatase 221 U/L (46-116) 220 U/L (46-116) Total Protein 6.3 g/dL (6.4-8.2) 6.2 g/dL (6.4-8.2) Albumin 2.6 g/dL (3.4-5.0) 2.5 g/dL (3.4-5.0) Albumin/Globulin Ratio 0.7 (1.0-1.7) 0.7 (1.0-1.7) White Blood Count 3.3 x10^3/uL (4.0-11.0) Red Blood Count 3.64 x10^6/uL (4.30-5.70) Hemoglobin 12.4 g/dL (13.0-17.5) Hematocrit 37.5 % (39.0-53.0) Mean Corpuscular Volume 103 fL (79-100) Mean Corpuscular Hemoglobin 34 pg (25-35) Mean Corpuscular Hemoglobin Concent 33 g/dL (31-37) Red Cell Distribution Width 19.0 % (11.5-14.5) Platelet Count 53 x10^3/uL (140-400) Neutrophils (%) (Auto) 57 % (31-73) Lymphocytes (%) (Auto) 28 % (24-48) Monocytes (%) (Auto) 13 % (0-9) Eosinophils (%) (Auto) 2 % (0-3) Basophils (%) (Auto) 1 % (0-3) Neutrophils # (Auto) 1.9 x10^3/uL (1.8-7.7) Lymphocytes # (Auto) 0.9 x10^3/uL (1.0-4.8) Monocytes # (Auto) 0.4 x10^3/uL (0.0-1.1) Eosinophils # (Auto) 0.1 x10^3/uL (0.0-0.7) Basophils # (Auto) 0.0 x10^3/uL (0.0-0.2) Magnesium Level 1.5 mg/dL (1.8-2.4) Creatine Kinase 31 U/L (39-308) Test 08/25/19 08:00 O2 Saturation 93 % (92-99) Arterial Blood pH 7.47 (7.35-7.45) Arterial Blood pCO2 at Patient Temp 29 mmHg (35-46) Arterial Blood pO2 at Patient Temp 63 mmHg (85-108) Arterial Blood HCO3 21 mmol/L (21-28) Arterial Blood Base Excess -2 mmol/L (-3-3) FiO2 40 Medications Active Scripts Medications Dose Route/Sig Max Daily Dose Days Date Category Gabapentin 600 Mg Tablet 600 Mg PO TID 08/21/19 Reported Haloperidol 5 Mg Tablet 1 Tab PO BID 08/20/19 Reported Zyprexa (Olanzapine) 5 Mg Tablet 1 Tab PO QHS 08/20/19 Reported Prazosin Hcl 1 Mg Capsule 1 Cap PO QHS 08/18/19 Reported Trazodone Hcl 100 Mg Tablet 1 Tab PO QHS 08/18/19 Reported Hydroxyzine Hcl 25 Mg Tablet 3 Tab PO TID 08/18/19 Reported Zoloft (Sertraline Hcl) 50 Mg Tablet 1 Tab PO DAILY 08/18/19 Reported Lorazepam 0.5 Mg Tablet 1 Tab PO TID 7 07/07/19 Rx Oxycodone Hcl 5 Mg Capsule 5 Mg PO PRN Q6HRS PRN 10 07/07/19 Rx Multivitamins (Multivitamin) 1 Each Tablet 1 Tab PO DAILY 07/07/19 Rx Folic Acid 1 Mg Tablet 1 Tab PO DAILY 07/07/19 Rx Vitamin B-1 (Thiamine Hcl) 100 Mg Tablet 100 Mg PO DAILY 30 07/07/19 Rx Famotidine 20 Mg Tablet 20 Mg PO BID 30 06/24/17 Rx Feosol (Ferrous Sulfate) 325 Mg Tablet 325 Mg PO DAILYWBKFT 30 06/24/17 Rx Comments CXR 08/25 LLL atelectasis Impression . 1. Acute respiratory failure secondary to acute toxic and metabolic encephalopathy. 2. Acute drug ingestion with gabapentin and Zoloft. 3. Abnormal chest x-ray with poor inspiratory effort./ LLL atelectasis 4. Alcoholic liver disease with possible acute alcoholic hepatitis with markedly increased bilirubin. 5. History of schizophrenia. 6. History of prior suicidal attempts. Plan . 1. We will continue with present assist control mode. 2. wean off sedation, assess MS, use Precedex for agitation 3. We will consider CPAP trial , if awake 5. We will need social service assistant help and psychiatric help post-extubation. 6. enteral nutrition. 7. Monitor chest x-ray. 8. Discussed with RN. We will follow along with you. ANEESH BRONSON MD Aug 25, 2019 10:50
--- NOTE | 2019-08-25 11:12 | PDOC ---
Objective: Objective: Per nurse - ?extubate today, received report ~200cc from OG (bilious) overnight. Vital Signs: Vital Signs Date Time Temp Pulse Resp B/P (MAP) Pulse Ox O2 Delivery O2 Flow Rate FiO2 08/25/19 10:36 96 Ventilator 08/25/19 09:00 66 16 102/60 (74) 08/25/19 08:00 99.1 99.1 Labs: Laboratory Tests Test 08/24/19 11:30 08/24/19 12:45 08/24/19 16:24 08/25/19 04:05 Glucose (Fingerstick) 78 mg/dL 82 mg/dL Sodium Level 146 mmol/L 146 mmol/L Potassium Level 3.4 mmol/L 3.5 mmol/L Chloride Level 110 mmol/L 112 mmol/L Carbon Dioxide Level 22 mmol/L 24 mmol/L Anion Gap 14 10 Blood Urea Nitrogen 2 mg/dL 4 mg/dL Creatinine 0.7 mg/dL 0.8 mg/dL Estimated GFR (Cockcroft-Gault) 133.3 114.3 BUN/Creatinine Ratio 3 5 Glucose Level 93 mg/dL 86 mg/dL Calcium Level 8.2 mg/dL 8.2 mg/dL Total Bilirubin 3.7 mg/dL 3.4 mg/dL Direct Bilirubin 3.3 mg/dL Aspartate Amino Transf (AST/SGOT) 132 U/L 130 U/L Alanine Aminotransferase (ALT/SGPT) 61 U/L 53 U/L Alkaline Phosphatase 221 U/L 220 U/L Total Protein 6.3 g/dL 6.2 g/dL Albumin 2.6 g/dL 2.5 g/dL Albumin/Globulin Ratio 0.7 0.7 White Blood Count 3.3 x10^3/uL Red Blood Count 3.64 x10^6/uL Hemoglobin 12.4 g/dL Hematocrit 37.5 % Mean Corpuscular Volume 103 fL Mean Corpuscular Hemoglobin 34 pg Mean Corpuscular Hemoglobin Concent 33 g/dL Red Cell Distribution Width 19.0 % Platelet Count 53 x10^3/uL Neutrophils (%) (Auto) 57 % Lymphocytes (%) (Auto) 28 % Monocytes (%) (Auto) 13 % Eosinophils (%) (Auto) 2 % Basophils (%) (Auto) 1 % Neutrophils # (Auto) 1.9 x10^3/uL Lymphocytes # (Auto) 0.9 x10^3/uL Monocytes # (Auto) 0.4 x10^3/uL Eosinophils # (Auto) 0.1 x10^3/uL Basophils # (Auto) 0.0 x10^3/uL Magnesium Level 1.5 mg/dL Creatine Kinase 31 U/L Test 08/25/19 08:00 O2 Saturation 93 % Arterial Blood pH 7.47 Arterial Blood pCO2 at Patient Temp 29 mmHg Arterial Blood pO2 at Patient Temp 63 mmHg Arterial Blood HCO3 21 mmol/L Arterial Blood Base Excess -2 mmol/L FiO2 40 PE: GEN: intubated HEENT: OG canister w/ ~500cc dark bilious liquid LUNGS: vent ABD: soft NEURO/PSYCH: sedated A/P: Intentional drug overdose, alcohol abuse Cirrhosis w/ esophageal varices, portal hypertensive gastropathy - last EGD 07/2019, on IV PPI AAT MZ phenotype Chronic thrombocytopenia -- Continue same per GI. JANET STEWART Aug 25, 2019 11:12
--- NOTE | 2019-08-25 14:03 | PDOC ---
[employer] PROGRESS NOTE Chief Complaint Chief Complaint EtOH abuse. Suicide attempt History of Present Illness History of Present Illness 08/25/19 Pt seen and examined at bedside in the ICU Pt is sedated and ventilated. (Vent Settings: AC 16/600/40% 5 PEEP) pH is 7.47, up from 7.43 O2 Sat is 94% AST is 130, down from 131 ALT is 53, down from 61 Alk phos is 220, down from 221 Creatinine kinase is 31 Pt is wearing mittens D/w RN Vitals/I&O Vitals/I&O: Vital Signs Date Time Temp Pulse Resp B/P (MAP) Pulse Ox O2 Delivery O2 Flow Rate FiO2 08/25/19 13:41 96 Ventilator 08/25/19 11:00 64 15 101/58 (72) 08/25/19 08:00 99.1 99.1 I & O 08/24/19 08/24/19 08/25/19 15:00 23:00 07:00 Intake Total 2533 ml 1549 ml Output Total 715 ml 410 ml 475 ml Balance -715 ml 2123 ml 1074 ml Physical Exam Lungs: Clear Labs Labs: Laboratory Tests Test 08/24/19 16:24 08/25/19 04:05 08/25/19 08:00 Sodium Level 146 mmol/L (136-145) 146 mmol/L (136-145) Potassium Level 3.4 mmol/L (3.5-5.1) 3.5 mmol/L (3.5-5.1) Chloride Level 110 mmol/L (98-107) 112 mmol/L (98-107) Carbon Dioxide Level 22 mmol/L (21-32) 24 mmol/L (21-32) Anion Gap 14 (6-14) 10 (6-14) Blood Urea Nitrogen 2 mg/dL (8-26) 4 mg/dL (8-26) Creatinine 0.7 mg/dL (0.7-1.3) 0.8 mg/dL (0.7-1.3) Estimated GFR (Cockcroft-Gault) 133.3 114.3 BUN/Creatinine Ratio 3 (6-20) 5 (6-20) Glucose Level 93 mg/dL (70-99) 86 mg/dL (70-99) Calcium Level 8.2 mg/dL (8.5-10.1) 8.2 mg/dL (8.5-10.1) Total Bilirubin 3.7 mg/dL (0.2-1.0) 3.4 mg/dL (0.2-1.0) Direct Bilirubin 3.3 mg/dL (0.0-0.2) Aspartate Amino Transf (AST/SGOT) 132 U/L (15-37) 130 U/L (15-37) Alanine Aminotransferase (ALT/SGPT) 61 U/L (16-63) 53 U/L (16-63) Alkaline Phosphatase 221 U/L (46-116) 220 U/L (46-116) Total Protein 6.3 g/dL (6.4-8.2) 6.2 g/dL (6.4-8.2) Albumin 2.6 g/dL (3.4-5.0) 2.5 g/dL (3.4-5.0) Albumin/Globulin Ratio 0.7 (1.0-1.7) 0.7 (1.0-1.7) White Blood Count 3.3 x10^3/uL (4.0-11.0) Red Blood Count 3.64 x10^6/uL (4.30-5.70) Hemoglobin 12.4 g/dL (13.0-17.5) Hematocrit 37.5 % (39.0-53.0) Mean Corpuscular Volume 103 fL (79-100) Mean Corpuscular Hemoglobin 34 pg (25-35) Mean Corpuscular Hemoglobin Concent 33 g/dL (31-37) Red Cell Distribution Width 19.0 % (11.5-14.5) Platelet Count 53 x10^3/uL (140-400) Neutrophils (%) (Auto) 57 % (31-73) Lymphocytes (%) (Auto) 28 % (24-48) Monocytes (%) (Auto) 13 % (0-9) Eosinophils (%) (Auto) 2 % (0-3) Basophils (%) (Auto) 1 % (0-3) Neutrophils # (Auto) 1.9 x10^3/uL (1.8-7.7) Lymphocytes # (Auto) 0.9 x10^3/uL (1.0-4.8) Monocytes # (Auto) 0.4 x10^3/uL (0.0-1.1) Eosinophils # (Auto) 0.1 x10^3/uL (0.0-0.7) Basophils # (Auto) 0.0 x10^3/uL (0.0-0.2) Magnesium Level 1.5 mg/dL (1.8-2.4) Creatine Kinase 31 U/L (39-308) O2 Saturation 93 % (92-99) Arterial Blood pH 7.47 (7.35-7.45) Arterial Blood pCO2 at Patient Temp 29 mmHg (35-46) Arterial Blood pO2 at Patient Temp 63 mmHg (85-108) Arterial Blood HCO3 21 mmol/L (21-28) Arterial Blood Base Excess -2 mmol/L (-3-3) FiO2 40 Assessment and Plan Assessmemt and Plan Problems Medical Problems: (1) Aggressive behavior Status: Acute (2) Alcohol intoxication Status: Acute (3) Esophageal varices in cirrhosis Status: Chronic (4) Portal hypertensive gastropathy Status: Chronic (5) Thrombocytopenia Status: Chronic Assessment Acute respiratory failure secondary to acute toxic and metabolic encephalopathy. Acute drug ingestion with gabapentin and Zoloft. Abnormal chest x-ray with poor inspiratory effort./ LLL atelectasis Alcoholic liver disease with possible acute alcoholic hepatitis with markedly increased bilirubin. History of schizophrenia. History of prior suicidal attempts. Plan Vent weaning Monitor pH Await further input from pulmonology DVT prophylaxis Home meds Full code Comment Review of Relevant I have reviewed the following items mc (where applicable) has been applied. Medications: Current Medications Medications (Trade) Dose Ordered Sig/Renee Route PRN Reason Start Time Stop Time Status Last Admin Dose Admin Midazolam HCl 100 ml @ 5 mls/hr CONT PRN IV SEE I/O RECORD 08/24/19 21:15 08/24/19 21:26 Dexmedetomidine HCl 400 mcg/ Sodium Chloride 100 ml @ 0 mls/hr CONT PRN IV ANXIETY / AGITATION 08/25/19 10:30 08/25/19 10:56 ALISON VELÁSQUEZ III DO Aug 25, 2019 14:03
[2019-08-25 14:48] LABS: BASE EXCESS ABG -3 mmol/L (-3-3); HCO3 ABG 21 mmol/L (21-28); PCO2 ABG 34 mmHg (35-46); PO2 ABG 80 mmHg (85-108); SAT O2 ABG 95 % (92-99)
[2019-08-25 14:51] LABS: FIO2 ABG 40
[2019-08-25] MEDS ORDERED: LORazepam 1 MG TABLET PO PRN ×2 (18:00)
[2019-08-25] MEDS: MORPHINE SULFATE 2 MG/ML VIAL. IV PRN ×2 (20:39→23:56)
[2019-08-26] VITALS (16 sets, daily range): BP systolic 106–141; BP diastolic 52–91
[2019-08-26] MEDS: MORPHINE SULFATE 2 MG/ML VIAL. IV PRN ×2 (03:04→06:10)
[2019-08-26 05:05] LABS: BASO % 1 % (0-3); EOS # 0.1 x10^3/uL (0.0-0.7); EOS % 2 % (0-3); HEMATOCRIT 38.5 % (39.0-53.0); HEMOGLOBIN 12.7 g/dL (13.0-17.5); LYMPH # 0.9 x10^3/uL (1.0-4.8); LYMPH % 27 % (24-48); MEAN CORPUSCULAR HEMOGLOBIN 35 pg (25-35); MEAN CORPUSCULAR HGB CONC 33 g/dL (31-37); MEAN CORPUSCULAR VOLUME 104 fL (79-100); MONO # 0.4 x10^3/uL (0.0-1.1); MONO % 12 % (0-9); NEUT % 58 % (31-73); PLATELET COUNT 54 x10^3/uL (140-400); RED BLOOD COUNT 3.69 x10^6/uL (4.30-5.70); RED CELL DISTRIBUTION WIDTH 17.8 % (11.5-14.5); WHITE BLOOD COUNT 3.4 x10^3/uL (4.0-11.0)
[2019-08-26 05:14] LABS: CALCIUM 8.5 mg/dL (8.5-10.1); CREATININE 0.8 mg/dL (0.7-1.3); GFR 114.3; POTASSIUM 3.8 mmol/L (3.5-5.1)
[2019-08-26] MEDS: IV NORMAL SALINE 1000ML BAG 1,000 ML IV SCH (06:20)
[2019-08-26] MEDS: PANTOPRAZOLE IV PUSH 40 MG VIAL. IVP SCH (07:45)
--- NOTE | 2019-08-26 10:09 | PDOC ---
Subjective: Subjective: Ask for an EGD. Says he had bleeding before he came and bleeding here. Objective: Vital Signs: Vital Signs Date Time Temp Pulse Resp B/P (MAP) Pulse Ox O2 Delivery O2 Flow Rate FiO2 08/26/19 09:07 97.7 91 18 110/67 (81) 96 Nasal Cannula 5.0 97.7 Labs: Laboratory Tests Test 08/25/19 14:30 08/26/19 04:35 O2 Saturation 95 % Arterial Blood pH 7.41 Arterial Blood pCO2 at Patient Temp 34 mmHg Arterial Blood pO2 at Patient Temp 80 mmHg Arterial Blood HCO3 21 mmol/L Arterial Blood Base Excess -3 mmol/L FiO2 40 White Blood Count 3.4 x10^3/uL Red Blood Count 3.69 x10^6/uL Hemoglobin 12.7 g/dL Hematocrit 38.5 % Mean Corpuscular Volume 104 fL Mean Corpuscular Hemoglobin 35 pg Mean Corpuscular Hemoglobin Concent 33 g/dL Red Cell Distribution Width 17.8 % Platelet Count 54 x10^3/uL Neutrophils (%) (Auto) 58 % Lymphocytes (%) (Auto) 27 % Monocytes (%) (Auto) 12 % Eosinophils (%) (Auto) 2 % Basophils (%) (Auto) 1 % Neutrophils # (Auto) 2.0 x10^3/uL Lymphocytes # (Auto) 0.9 x10^3/uL Monocytes # (Auto) 0.4 x10^3/uL Eosinophils # (Auto) 0.1 x10^3/uL Basophils # (Auto) 0.0 x10^3/uL Sodium Level 146 mmol/L Potassium Level 3.8 mmol/L Chloride Level 113 mmol/L Carbon Dioxide Level 26 mmol/L Anion Gap 7 Blood Urea Nitrogen 6 mg/dL Creatinine 0.8 mg/dL Estimated GFR (Cockcroft-Gault) 114.3 Glucose Level 79 mg/dL Calcium Level 8.5 mg/dL Magnesium Level 1.5 mg/dL URINE CULTURE Final Final report URINE CULTURE RES 1 Final Comment Mixed urogenital kj PE: GEN: NAD LUNGS: NC 5L HEART: RRR ABD: S/ND/NT NEURO/PSYCH: A & O 3 A/P: Intentional drug overdose, alcohol abuse - extubated Cirrhosis w/ esophageal varices, portal hypertensive gastropathy - last EGD 07/2019, on IV PPI AAT MZ phenotype Chronic thrombocytopenia -- Remains fixated on EGD - have explained rationale for NOT pursuing this multiple times. Nurse says was told he doesn't need a swallow eval - okay to try clears per GI if awake enough. PO PPI when reliably eating. JANET STEWART Aug 26, 2019 10:09
[2019-08-26] MEDS: fentaNYL PF VIAL 100 MCG/2 ML VIAL IV PRN ×3 (10:50→21:15)
--- NOTE | 2019-08-26 10:58 | PDOC ---
PULMONARY PROGRESS NOTES Subjective extubated 08/25 on canula 5 litres Vitals Vital Signs Date Time Temp Pulse Resp B/P (MAP) Pulse Ox O2 Delivery O2 Flow Rate FiO2 08/26/19 10:15 98.6 97 18 135/82 (99) 95 Nasal Cannula 5.0 98.6 General: Alert Lungs: Clear Cardiovascular: S1 Abdomen: Soft Neuro Exam: Alert Extremities: Other (2+edema) Skin: Warm Labs Laboratory Tests Test 08/24/19 11:30 08/24/19 12:45 08/24/19 16:24 08/25/19 04:05 Glucose (Fingerstick) 78 mg/dL (70-99) 82 mg/dL (70-99) Sodium Level 146 mmol/L (136-145) 146 mmol/L (136-145) Potassium Level 3.4 mmol/L (3.5-5.1) 3.5 mmol/L (3.5-5.1) Chloride Level 110 mmol/L (98-107) 112 mmol/L (98-107) Carbon Dioxide Level 22 mmol/L (21-32) 24 mmol/L (21-32) Anion Gap 14 (6-14) 10 (6-14) Blood Urea Nitrogen 2 mg/dL (8-26) 4 mg/dL (8-26) Creatinine 0.7 mg/dL (0.7-1.3) 0.8 mg/dL (0.7-1.3) Estimated GFR (Cockcroft-Gault) 133.3 114.3 BUN/Creatinine Ratio 3 (6-20) 5 (6-20) Glucose Level 93 mg/dL (70-99) 86 mg/dL (70-99) Calcium Level 8.2 mg/dL (8.5-10.1) 8.2 mg/dL (8.5-10.1) Total Bilirubin 3.7 mg/dL (0.2-1.0) 3.4 mg/dL (0.2-1.0) Direct Bilirubin 3.3 mg/dL (0.0-0.2) Aspartate Amino Transf (AST/SGOT) 132 U/L (15-37) 130 U/L (15-37) Alanine Aminotransferase (ALT/SGPT) 61 U/L (16-63) 53 U/L (16-63) Alkaline Phosphatase 221 U/L (46-116) 220 U/L (46-116) Total Protein 6.3 g/dL (6.4-8.2) 6.2 g/dL (6.4-8.2) Albumin 2.6 g/dL (3.4-5.0) 2.5 g/dL (3.4-5.0) Albumin/Globulin Ratio 0.7 (1.0-1.7) 0.7 (1.0-1.7) White Blood Count 3.3 x10^3/uL (4.0-11.0) Red Blood Count 3.64 x10^6/uL (4.30-5.70) Hemoglobin 12.4 g/dL (13.0-17.5) Hematocrit 37.5 % (39.0-53.0) Mean Corpuscular Volume 103 fL (79-100) Mean Corpuscular Hemoglobin 34 pg (25-35) Mean Corpuscular Hemoglobin Concent 33 g/dL (31-37) Red Cell Distribution Width 19.0 % (11.5-14.5) Platelet Count 53 x10^3/uL (140-400) Neutrophils (%) (Auto) 57 % (31-73) Lymphocytes (%) (Auto) 28 % (24-48) Monocytes (%) (Auto) 13 % (0-9) Eosinophils (%) (Auto) 2 % (0-3) Basophils (%) (Auto) 1 % (0-3) Neutrophils # (Auto) 1.9 x10^3/uL (1.8-7.7) Lymphocytes # (Auto) 0.9 x10^3/uL (1.0-4.8) Monocytes # (Auto) 0.4 x10^3/uL (0.0-1.1) Eosinophils # (Auto) 0.1 x10^3/uL (0.0-0.7) Basophils # (Auto) 0.0 x10^3/uL (0.0-0.2) Magnesium Level 1.5 mg/dL (1.8-2.4) Creatine Kinase 31 U/L (39-308) Test 08/25/19 08:00 08/25/19 14:30 08/26/19 04:35 O2 Saturation 93 % (92-99) 95 % (92-99) Arterial Blood pH 7.47 (7.35-7.45) 7.41 (7.35-7.45) Arterial Blood pCO2 at Patient Temp 29 mmHg (35-46) 34 mmHg (35-46) Arterial Blood pO2 at Patient Temp 63 mmHg (85-108) 80 mmHg (85-108) Arterial Blood HCO3 21 mmol/L (21-28) 21 mmol/L (21-28) Arterial Blood Base Excess -2 mmol/L (-3-3) -3 mmol/L (-3-3) FiO2 40 40 White Blood Count 3.4 x10^3/uL (4.0-11.0) Red Blood Count 3.69 x10^6/uL (4.30-5.70) Hemoglobin 12.7 g/dL (13.0-17.5) Hematocrit 38.5 % (39.0-53.0) Mean Corpuscular Volume 104 fL (79-100) Mean Corpuscular Hemoglobin 35 pg (25-35) Mean Corpuscular Hemoglobin Concent 33 g/dL (31-37) Red Cell Distribution Width 17.8 % (11.5-14.5) Platelet Count 54 x10^3/uL (140-400) Neutrophils (%) (Auto) 58 % (31-73) Lymphocytes (%) (Auto) 27 % (24-48) Monocytes (%) (Auto) 12 % (0-9) Eosinophils (%) (Auto) 2 % (0-3) Basophils (%) (Auto) 1 % (0-3) Neutrophils # (Auto) 2.0 x10^3/uL (1.8-7.7) Lymphocytes # (Auto) 0.9 x10^3/uL (1.0-4.8) Monocytes # (Auto) 0.4 x10^3/uL (0.0-1.1) Eosinophils # (Auto) 0.1 x10^3/uL (0.0-0.7) Basophils # (Auto) 0.0 x10^3/uL (0.0-0.2) Sodium Level 146 mmol/L (136-145) Potassium Level 3.8 mmol/L (3.5-5.1) Chloride Level 113 mmol/L (98-107) Carbon Dioxide Level 26 mmol/L (21-32) Anion Gap 7 (6-14) Blood Urea Nitrogen 6 mg/dL (8-26) Creatinine 0.8 mg/dL (0.7-1.3) Estimated GFR (Cockcroft-Gault) 114.3 Glucose Level 79 mg/dL (70-99) Calcium Level 8.5 mg/dL (8.5-10.1) Magnesium Level 1.5 mg/dL (1.8-2.4) Laboratory Tests Test 08/25/19 14:30 08/26/19 04:35 O2 Saturation 95 % (92-99) Arterial Blood pH 7.41 (7.35-7.45) Arterial Blood pCO2 at Patient Temp 34 mmHg (35-46) Arterial Blood pO2 at Patient Temp 80 mmHg (85-108) Arterial Blood HCO3 21 mmol/L (21-28) Arterial Blood Base Excess -3 mmol/L (-3-3) FiO2 40 White Blood Count 3.4 x10^3/uL (4.0-11.0) Red Blood Count 3.69 x10^6/uL (4.30-5.70) Hemoglobin 12.7 g/dL (13.0-17.5) Hematocrit 38.5 % (39.0-53.0) Mean Corpuscular Volume 104 fL (79-100) Mean Corpuscular Hemoglobin 35 pg (25-35) Mean Corpuscular Hemoglobin Concent 33 g/dL (31-37) Red Cell Distribution Width 17.8 % (11.5-14.5) Platelet Count 54 x10^3/uL (140-400) Neutrophils (%) (Auto) 58 % (31-73) Lymphocytes (%) (Auto) 27 % (24-48) Monocytes (%) (Auto) 12 % (0-9) Eosinophils (%) (Auto) 2 % (0-3) Basophils (%) (Auto) 1 % (0-3) Neutrophils # (Auto) 2.0 x10^3/uL (1.8-7.7) Lymphocytes # (Auto) 0.9 x10^3/uL (1.0-4.8) Monocytes # (Auto) 0.4 x10^3/uL (0.0-1.1) Eosinophils # (Auto) 0.1 x10^3/uL (0.0-0.7) Basophils # (Auto) 0.0 x10^3/uL (0.0-0.2) Sodium Level 146 mmol/L (136-145) Potassium Level 3.8 mmol/L (3.5-5.1) Chloride Level 113 mmol/L (98-107) Carbon Dioxide Level 26 mmol/L (21-32) Anion Gap 7 (6-14) Blood Urea Nitrogen 6 mg/dL (8-26) Creatinine 0.8 mg/dL (0.7-1.3) Estimated GFR (Cockcroft-Gault) 114.3 Glucose Level 79 mg/dL (70-99) Calcium Level 8.5 mg/dL (8.5-10.1) Magnesium Level 1.5 mg/dL (1.8-2.4) Medications Active Scripts Medications Dose Route/Sig Max Daily Dose Days Date Category Gabapentin 600 Mg Tablet 600 Mg PO TID 08/21/19 Reported Haloperidol 5 Mg Tablet 1 Tab PO BID 08/20/19 Reported Zyprexa (Olanzapine) 5 Mg Tablet 1 Tab PO QHS 08/20/19 Reported Prazosin Hcl 1 Mg Capsule 1 Cap PO QHS 08/18/19 Reported Trazodone Hcl 100 Mg Tablet 1 Tab PO QHS 08/18/19 Reported Hydroxyzine Hcl 25 Mg Tablet 3 Tab PO TID 08/18/19 Reported Zoloft (Sertraline Hcl) 50 Mg Tablet 1 Tab PO DAILY 08/18/19 Reported Lorazepam 0.5 Mg Tablet 1 Tab PO TID 7 07/07/19 Rx Oxycodone Hcl 5 Mg Capsule 5 Mg PO PRN Q6HRS PRN 10 07/07/19 Rx Multivitamins (Multivitamin) 1 Each Tablet 1 Tab PO DAILY 07/07/19 Rx Folic Acid 1 Mg Tablet 1 Tab PO DAILY 07/07/19 Rx Vitamin B-1 (Thiamine Hcl) 100 Mg Tablet 100 Mg PO DAILY 30 07/07/19 Rx Famotidine 20 Mg Tablet 20 Mg PO BID 30 06/24/17 Rx Feosol (Ferrous Sulfate) 325 Mg Tablet 325 Mg PO DAILYWBKFT 30 06/24/17 Rx Comments CXR 08/25 LLL atelectasis Impression . 1. Acute respiratory failure secondary to acute toxic and metabolic encephalopathy. extubated 08/25 2. Acute drug ingestion with gabapentin and Zoloft. 3. Abnormal chest x-ray with poor inspiratory effort./ LLL atelectasis 4. Alcoholic liver disease with possible acute alcoholic hepatitis with increased bilirubin. 5. History of schizophrenia. 6. History of prior suicidal attempts. Plan . 1. We will continue with present canula, try lasix to see improvement in oxygenation 2. oral nutrition 3. PT consult 5. We will need director social service help and psychiatric 6. f/u cxr as needed 7. Monitor LFT 8. Discussed with RN.replace Mg transfer to floor ANEESH BRONSON MD Aug 26, 2019 10:58
[2019-08-26] MEDS ORDERED: FUROSEMIDE 40 MG/4 ML VIAL. IVP ONE (11:00)
--- NOTE | 2019-08-26 11:09 | PDOC ---
[employer] PROGRESS NOTE Chief Complaint Chief Complaint EtOH abuse. Suicide attempt History of Present Illness History of Present Illness 08/26/19 Pt seen and examined in ICU Pt was extubated and doing well but is weak and tired We talked extensively about his mental health and his plan to be discharged from the hospital to an inpatient psych facility. He states he wants to go to [facility] and will go willingly if he has a choice in where he goes. He has had a series of misfortunate events that seem to be stemmed from his family and use of ETOH and marijuana. He still has feelings of hurting himself today in the ICU. 1:1 nursing Pt complains of a lot of back pain and requested some pain medication. He states the IV Fentanyl works the best. CORTNEY RN 08/25/19 Pt seen and examined at bedside in the ICU Pt is sedated and ventilated. (Vent Settings: AC 16/600/40% 5 PEEP) pH is 7.47, up from 7.43 O2 Sat is 94% AST is 130, down from 131 ALT is 53, down from 61 Alk phos is 220, down from 221 Creatinine kinase is 31 Pt is wearing mittens D/w RN Vitals/I&O Vitals/I&O: Vital Signs Date Time Temp Pulse Resp B/P (MAP) Pulse Ox O2 Delivery O2 Flow Rate FiO2 08/26/19 10:50 Nasal Cannula 5.0 08/26/19 10:15 98.6 97 18 135/82 (99) 95 98.6 I & O 08/25/19 08/25/19 08/26/19 15:00 23:00 07:00 Intake Total 177 ml 70 ml 2494 ml Output Total 105 ml 175 ml 395 ml Balance 72 ml -105 ml 2099 ml Physical Exam General: Alert, Oriented X3, Cooperative Heart: Regular rate Lungs: Clear Abdomen: Normal bowel sounds Extremities: No clubbing, No cyanosis Skin: No rashes, No significant lesion Labs Labs: Laboratory Tests Test 08/25/19 14:30 08/26/19 04:35 O2 Saturation 95 % (92-99) Arterial Blood pH 7.41 (7.35-7.45) Arterial Blood pCO2 at Patient Temp 34 mmHg (35-46) Arterial Blood pO2 at Patient Temp 80 mmHg (85-108) Arterial Blood HCO3 21 mmol/L (21-28) Arterial Blood Base Excess -3 mmol/L (-3-3) FiO2 40 White Blood Count 3.4 x10^3/uL (4.0-11.0) Red Blood Count 3.69 x10^6/uL (4.30-5.70) Hemoglobin 12.7 g/dL (13.0-17.5) Hematocrit 38.5 % (39.0-53.0) Mean Corpuscular Volume 104 fL (79-100) Mean Corpuscular Hemoglobin 35 pg (25-35) Mean Corpuscular Hemoglobin Concent 33 g/dL (31-37) Red Cell Distribution Width 17.8 % (11.5-14.5) Platelet Count 54 x10^3/uL (140-400) Neutrophils (%) (Auto) 58 % (31-73) Lymphocytes (%) (Auto) 27 % (24-48) Monocytes (%) (Auto) 12 % (0-9) Eosinophils (%) (Auto) 2 % (0-3) Basophils (%) (Auto) 1 % (0-3) Neutrophils # (Auto) 2.0 x10^3/uL (1.8-7.7) Lymphocytes # (Auto) 0.9 x10^3/uL (1.0-4.8) Monocytes # (Auto) 0.4 x10^3/uL (0.0-1.1) Eosinophils # (Auto) 0.1 x10^3/uL (0.0-0.7) Basophils # (Auto) 0.0 x10^3/uL (0.0-0.2) Sodium Level 146 mmol/L (136-145) Potassium Level 3.8 mmol/L (3.5-5.1) Chloride Level 113 mmol/L (98-107) Carbon Dioxide Level 26 mmol/L (21-32) Anion Gap 7 (6-14) Blood Urea Nitrogen 6 mg/dL (8-26) Creatinine 0.8 mg/dL (0.7-1.3) Estimated GFR (Cockcroft-Gault) 114.3 Glucose Level 79 mg/dL (70-99) Calcium Level 8.5 mg/dL (8.5-10.1) Magnesium Level 1.5 mg/dL (1.8-2.4) Review of Systems Review of Systems: Co pain Co weakness Assessment and Plan Assessmemt and Plan Problems Medical Problems: (1) Aggressive behavior Status: Acute (2) Alcohol intoxication Status: Acute (3) Esophageal varices in cirrhosis Status: Chronic (4) Portal hypertensive gastropathy Status: Chronic (5) Thrombocytopenia Status: Chronic Assessment Acute drug ingestion with gabapentin and Zoloft Suicidal thoughts with prior suicide attempts Respiratory failure Alcoholic liver disease Hx of schizophrenia Plan ICU monitoring Pain management with Fentanyl Awaiting PAT team recommendations DVT prophylaxis Home meds Full code Comment Review of Relevant I have reviewed the following items mc (where applicable) has been applied. Medications: Current Medications Medications (Trade) Dose Ordered Sig/Renee Route PRN Reason Start Time Stop Time Status Last Admin Dose Admin Lorazepam (Ativan Inj) 0.5 mg 1X ONCE IV 08/25/19 16:45 08/25/19 16:46 DC 08/25/19 17:05 Lorazepam (Ativan Inj) 2 mg PRN Q1HR PRN IV For CIWA 8-14 08/25/19 18:00 08/26/19 08:04 Morphine Sulfate (Morphine Sulfate) 2 mg PRN Q2HR PRN IV MILD PAIN 1-3 08/25/19 20:30 08/26/19 06:10 Fentanyl Citrate (Fentanyl 2ml Vial) 75 mcg Q4HRS PRN IV MOD TO SEVERE PAIN 08/26/19 10:30 08/26/19 10:50 ALISON VELÁSQUEZ III DO Aug 26, 2019 11:09
[2019-08-26] MEDS ORDERED: MAGNESIUM SULFATE 2GM 50 ML IV ONE ×2 (11:45)
--- NOTE | 2019-08-26 14:27 | NUR ---
SS following up with discharge planning. Carli from the PAT team contacted [facility] and stated that she met with pt and pt is requesting [facility] for placement. Carli reported that [facility] does not have a bed today and will follow up in the AM with [facility] to check on bed availability.
[2019-08-27] MEDS: fentaNYL PF VIAL 100 MCG/2 ML VIAL IV PRN ×5 (02:00→20:33)
[2019-08-27 03:00] VITALS: BP 118/78
[2019-08-27 07:08] VITALS: BP 131/84
--- NOTE | 2019-08-27 07:40 | PDOC ---
PROGRESS NOTES Chief Complaint Chief Complaint EtOH abuse. Suicide attempt History of Present Illness History of Present Illness 08/26/19 Pt seen and examined in ICU Pt was extubated and doing well but is weak and tired We talked extensively about his mental health and his plan to be discharged from the hospital to an inpatient psych facility. He states he wants to go to [facility] and will go willingly if he has a choice in where he goes. He has had a series of misfortunate events that seem to be stemmed from his family and use of ETOH and marijuana. He still has feelings of hurting himself today in the ICU. 1:1 nursing Pt complains of a lot of back pain and requested some pain medication. He states the IV Fentanyl works the best. CORTNEY RN 08/25/19 Pt seen and examined at bedside in the ICU Pt is sedated and ventilated. (Vent Settings: AC 16/600/40% 5 PEEP) pH is 7.47, up from 7.43 O2 Sat is 94% AST is 130, down from 131 ALT is 53, down from 61 Alk phos is 220, down from 221 Creatinine kinase is 31 Pt is wearing mittens D/w RN Vitals Vitals Vital Signs Date Time Temp Pulse Resp B/P (MAP) Pulse Ox O2 Delivery O2 Flow Rate FiO2 08/27/19 07:08 98.5 80 18 131/84 (100) 93 Nasal Cannula 3.0 98.5 Physical Exam General: Alert, Oriented X3, Cooperative Heart: Regular rate Lungs: Clear Abdomen: Normal bowel sounds Extremities: No clubbing, No cyanosis Skin: No rashes, No significant lesion Assessment and Plan Assessmemt and Plan Problems Medical Problems: (1) Aggressive behavior Status: Acute (2) Alcohol intoxication Status: Acute (3) 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 Labs Laboratory Tests Test 08/25/19 08:00 08/25/19 14:30 08/26/19 04:35 O2 Saturation 93 % (92-99) 95 % (92-99) Arterial Blood pH 7.47 (7.35-7.45) 7.41 (7.35-7.45) Arterial Blood pCO2 at Patient Temp 29 mmHg (35-46) 34 mmHg (35-46) Arterial Blood pO2 at Patient Temp 63 mmHg (85-108) 80 mmHg (85-108) Arterial Blood HCO3 21 mmol/L (21-28) 21 mmol/L (21-28) Arterial Blood Base Excess -2 mmol/L (-3-3) -3 mmol/L (-3-3) FiO2 40 40 White Blood Count 3.4 x10^3/uL (4.0-11.0) Red Blood Count 3.69 x10^6/uL (4.30-5.70) Hemoglobin 12.7 g/dL (13.0-17.5) Hematocrit 38.5 % (39.0-53.0) Mean Corpuscular Volume 104 fL (79-100) Mean Corpuscular Hemoglobin 35 pg (25-35) Mean Corpuscular Hemoglobin Concent 33 g/dL (31-37) Red Cell Distribution Width 17.8 % (11.5-14.5) Platelet Count 54 x10^3/uL (140-400) Neutrophils (%) (Auto) 58 % (31-73) Lymphocytes (%) (Auto) 27 % (24-48) Monocytes (%) (Auto) 12 % (0-9) Eosinophils (%) (Auto) 2 % (0-3) Basophils (%) (Auto) 1 % (0-3) Neutrophils # (Auto) 2.0 x10^3/uL (1.8-7.7) Lymphocytes # (Auto) 0.9 x10^3/uL (1.0-4.8) Monocytes # (Auto) 0.4 x10^3/uL (0.0-1.1) Eosinophils # (Auto) 0.1 x10^3/uL (0.0-0.7) Basophils # (Auto) 0.0 x10^3/uL (0.0-0.2) Sodium Level 146 mmol/L (136-145) Potassium Level 3.8 mmol/L (3.5-5.1) Chloride Level 113 mmol/L (98-107) Carbon Dioxide Level 26 mmol/L (21-32) Anion Gap 7 (6-14) Blood Urea Nitrogen 6 mg/dL (8-26) Creatinine 0.8 mg/dL (0.7-1.3) Estimated GFR (Cockcroft-Gault) 114.3 Glucose Level 79 mg/dL (70-99) Calcium Level 8.5 mg/dL (8.5-10.1) Magnesium Level 1.5 mg/dL (1.8-2.4) Microbiology 08/24/19 Urine Culture - Final, Complete 08/24/19 Urine Culture Result 1 (ERICK) - Final, Complete Medications Current Medications Succinylcholine Chloride (Anectine) 200 mg STK-MED ONCE .ROUTE ; Start 08/24/19 at 00:11; Stop 08/24/19 at 00:12; Status DC Propofol 100 ml @ 0 mls/hr CONT PRN IV SEE PROTOCOL Last administered on 08/25at 09:16; Start 08/24/19 at 00:30; Stop 08/25/19 at 20:09; Status DC Fentanyl Citrate (Fentanyl 2ml Vial) 50 mcg PRN Q1HR PRN IV SEE COMMENTS Last administered on 08/25/19at 05:00; Start 08/24/19 at 00:30; Stop 08/25/19 at 20:09; Status DC Chlorhexidine Gluconate (Peridex) 15 ml BID MM Last administered on 08/25/19at 07:42; Start 08/24/19 at 09:00; Stop 08/25/19 at 19:18; Status DC Morphine Sulfate (Morphine Sulfate) 2 mg PRN Q1HR PRN IV SEE COMMENTS. Last administered on 08/24/19at 20:32; Start 08/24/19 at 00:30; Stop 08/25/19 at 20:09; Status DC Midazolam HCl (Versed) 1 mg PRN Q30MIN PRN IV SEE COMMENTS. Last administered on 08/24/19at 20:32; Start 08/24/19 at 00:30; Stop 08/25/19 at 20:09; Status DC Propofol 50 ml @ As Directed STK-MED ONCE IV ; Start 08/24/19 at 00:21; Stop 08/24/19 at 00:22; Status DC Etomidate (Amidate) 20 mg STK-MED ONCE IV ; Start 08/24/19 at 01:02; Stop 08/24/19 at 01:02; Status DC Etomidate (Amidate) 20 mg 1X ONCE IV Last administered on 08/24/19at 02:09; Start 08/24/19 at 01:45; Stop 08/24/19 at 01:46; Status DC Succinylcholine Chloride (Anectine) 100 mg 1X ONCE IV Last administered on 08/24/19at 02:09; Start 08/24/19 at 01:45; Stop 08/24/19 at 01:46; Status DC Propofol 50 ml @ As Directed STK-MED ONCE IV ; Start 08/24/19 at 02:17; Stop 08/24/19 at 02:18; Status DC Ondansetron HCl (Zofran) 4 mg PRN Q8HRS PRN IV NAUSEA/VOMITING; Start 08/24/19 at 02:30; Stop 08/25/19 at 02:29; Status DC Albuterol/ Ipratropium (Duoneb) 3 ml RTQID NEB Last administered on 08/24/19at 19:55; Start 08/24/19 at 08:00; Stop 08/25/19 at 07:59; Status DC Sodium Chloride 1,000 ml @ 1,000 mls/hr 1X ONCE IV Last administered on 08/24/19at 04:30; Start 08/24/19 at 03:30; Stop 08/24/19 at 04:29; Status DC Sodium Chloride 1,000 ml @ 100 mls/hr Q10H IV Last administered on 08/26/19at 06:20; Start 08/24/19 at 04:30; Stop 08/26/19 at 11:39; Status DC Dextrose (Dextrose 50%-Water Syringe) 25 gm STK-MED ONCE IV ; Start 08/24/19 at 11:31; Stop 08/24/19 at 11:32; Status DC Pantoprazole Sodium (PROTONIX VIAL for IV PUSH) 40 mg DAILYAC IVP Last administered on 08/26/19at 07:45; Start 08/24/19 at 13:00 Midazolam HCl 100 ml @ 5 mls/hr CONT PRN IV SEE I/O RECORD Last administered on 08/24/19at 21:26; Start 08/24/19 at 21:15; Stop 08/25/19 at 20:12; Status DC Dexmedetomidine HCl 400 mcg/ Sodium Chloride 100 ml @ 0 mls/hr CONT PRN IV ANXIETY / AGITATION Last administered on 08/25/19at 10:56; Start 08/25/19 at 10:30; Stop 08/25/19 at 20:12; Status DC Sodium Chloride 500 ml @ 500 mls/hr 1X PRN PRN IV PER PROTOCOL; Start 08/25/19 at 10:30; Stop 08/25/19 at 20:12; Status DC Atropine Sulfate (ATROPINE 0.5mg SYRINGE) 0.5 mg PRN Q5MIN PRN IV SEE COMMENTS; Start 08/25/19 at 10:30; Stop 08/25/19 at 20:12; Status DC Lorazepam (Ativan Inj) 0.5 mg 1X ONCE IV Last administered on 08/25/19at 17:05; Start 08/25/19 at 16:45; Stop 08/25/19 at 16:46; Status DC Lorazepam (Ativan) 4 mg PRN Q1HR PRN PO For CIWA 8-14; Start 08/25/19 at 18:00 Lorazepam (Ativan) 8 mg PRN Q1HR PRN PO For CIWA 15 or greater; Start 08/25/19 at 18:00 Lorazepam (Ativan Inj) 2 mg PRN Q1HR PRN IV For CIWA 8-14 Last administered on 08/27/19at 06:25; Start 08/25/19 at 18:00 Lorazepam (Ativan Inj) 4 mg PRN Q1HR PRN IV For CIWA 15 or greater; Start 08/25/19 at 18:00 Morphine Sulfate (Morphine Sulfate) 2 mg PRN Q2HR PRN IV MILD PAIN 1-3 Last administered on 08/26/19at 06:10; Start 08/25/19 at 20:30 Fentanyl Citrate (Fentanyl 2ml Vial) 75 mcg Q4HRS PRN IV MOD TO SEVERE PAIN Last administered on 08/27/19at 06:25; Start 08/26/19 at 10:30 Furosemide (Lasix) 40 mg 1X ONCE IVP Last administered on 08/26/19at 11:36; Start 08/26/19 at 11:00; Stop 08/26/19 at 11:01; Status DC Magnesium Sulfate 50 ml @ 25 mls/hr 1X ONCE IV ; Start 08/26/19 at 11:45; Stop 08/26/19 at 13:44; Status UNV Magnesium Sulfate 50 ml @ 25 mls/hr 1X ONCE IV Last administered on 08/26/19at 13:08; Start 08/26/19 at 11:45; Stop 08/26/19 at 13:44; Status DC Active Scripts Active Lorazepam 0.5 Mg Tablet 1 Tab PO TID 7 Days Oxycodone Hcl 5 Mg Capsule 5 Mg PO PRN Q6HRS PRN 10 Days Multivitamins (Multivitamin) 1 Each Tablet 1 Tab PO DAILY Folic Acid 1 Mg Tablet 1 Tab PO DAILY Vitamin B-1 (Thiamine Hcl) 100 Mg Tablet 100 Mg PO DAILY 30 Days Famotidine 20 Mg Tablet 20 Mg PO BID 30 Days Feosol (Ferrous Sulfate) 325 Mg Tablet 325 Mg PO DAILYWBKFT 30 Days Reported Gabapentin 600 Mg Tablet 600 Mg PO TID Haloperidol 5 Mg Tablet 1 Tab PO BID Zyprexa (Olanzapine) 5 Mg Tablet 1 Tab PO QHS Prazosin Hcl 1 Mg Capsule 1 Cap PO QHS Trazodone Hcl 100 Mg Tablet 1 Tab PO QHS Hydroxyzine Hcl 25 Mg Tablet 3 Tab PO TID Zoloft (Sertraline Hcl) 50 Mg Tablet 1 Tab PO DAILY Vitals/I & O Vital Sign - Last 24 Hours 08/26/19 08/26/19 08/26/19 08/26/19 07:48 08:21 09:07 10:15 Temp 98.6 97.7 98.6 98.6 97.7 98.6 Pulse 86 91 97 Resp 14 18 18 B/P (MAP) 133/81 (98) 110/67 (81) 135/82 (99) Pulse Ox 96 96 95 O2 Delivery Nasal Cannula Nasal Cannula Nasal Cannula Nasal Cannula O2 Flow Rate 5.0 5.0 5.0 5.0 08/26/19 08/26/19 08/26/19 08/26/19 10:50 11:03 11:36 12:00 Temp 98.4 98.2 98.4 98.2 Pulse 94 99 Resp 14 20 B/P (MAP) 141/87 (105) 125/83 (97) Pulse Ox 96 95 O2 Delivery Nasal Cannula Nasal Cannula Nasal Cannula Nasal Cannula O2 Flow Rate 5.0 5.0 5.0 4.0 08/26/19 08/26/19 08/26/19 08/26/19 15:00 15:57 16:33 19:00 Temp 98.4 98.5 98.4 98.5 Pulse 94 87 Resp 18 18 B/P (MAP) 116/67 (83) 120/70 (87) Pulse Ox 95 95 O2 Delivery Nasal Cannula Nasal Cannula Nasal Cannula Nasal Cannula O2 Flow Rate 3.0 3.0 3.0 3.0 08/26/19 08/26/19 08/26/19 08/26/19 20:00 21:15 21:45 23:02 Temp 98.4 98.4 Pulse 79 Resp 20 B/P (MAP) 106/62 (77) Pulse Ox 95 O2 Delivery Nasal Cannula Nasal Cannula Nasal Cannula Nasal Cannula O2 Flow Rate 3.0 3.0 08/27/19 08/27/19 08/27/19 08/27/19 02:00 02:30 03:00 06:25 Temp 97.8 97.8 Pulse 69 Resp 18 B/P (MAP) 118/78 (91) Pulse Ox 97 97 O2 Delivery Nasal Cannula Nasal Cannula Nasal Cannula Nasal Cannula O2 Flow Rate 3.0 3.0 3.0 08/27/19 07:08 Temp 98.5 98.5 Pulse 80 Resp 18 B/P (MAP) 131/84 (100) Pulse Ox 93 O2 Delivery Nasal Cannula O2 Flow Rate 3.0 Intake and Output 08/26/19 08/26/19 08/27/19 15:00 23:00 07:00 Intake Total 225 ml 880 ml 300 ml Output Total 3300 ml 925 ml Balance -3075 ml -45 ml 300 ml KORY CRAIG MD Aug 27, 2019 07:40
[2019-08-27] MEDS: PANTOPRAZOLE IV PUSH 40 MG VIAL. IVP SCH (08:10)
[2019-08-27] MEDS ORDERED: MAGNESIUM SULFATE 2GM 50 ML IV ONE (08:45)
--- NOTE | 2019-08-27 09:13 | NUR ---
SW following pt. Pt is a transfer from ICU. CARLOS spoke with Kathryn at [facility], phone: [phone] and they do not have an open bed. Kathryn asked to call after 1500. PAT team to see pt again today.
[2019-08-27 09:15] LABS: BASO % 1 % (0-3); CALCIUM 8.6 mg/dL (8.5-10.1); CREATININE 0.8 mg/dL (0.7-1.3); EOS % 2 % (0-3); GFR 114.3; HEMATOCRIT 37.8 % (39.0-53.0); HEMOGLOBIN 12.7 g/dL (13.0-17.5); LYMPH # 0.8 x10^3/uL (1.0-4.8); LYMPH % 29 % (24-48); MEAN CORPUSCULAR HEMOGLOBIN 35 pg (25-35); MEAN CORPUSCULAR HGB CONC 34 g/dL (31-37); MEAN CORPUSCULAR VOLUME 103 fL (79-100); MONO # 0.3 x10^3/uL (0.0-1.1); MONO % 10 % (0-9); NEUT # 1.7 x10^3/uL (1.8-7.7); NEUT % 59 % (31-73); PLATELET COUNT 56 x10^3/uL (140-400); RED BLOOD COUNT 3.67 x10^6/uL (4.30-5.70); RED CELL DISTRIBUTION WIDTH 17.5 % (11.5-14.5)
[2019-08-27 10:41] VITALS: BP 130/77
--- NOTE | 2019-08-27 11:14 | PDOC ---
PROGRESS NOTES Chief Complaint Chief Complaint EtOH abuse. Suicide attempt Bloody concentrated urine hypomagnesemia History of Present Illness History of Present Illness Low mag EToh 226 on admit Came from ICU s.p MONA Singer in, concentrated? bloody urine? No uTI on UA SItter at bedside Pt not eating much per sitter GAit unsteady? per pt PLAN; flush that singer - IVF if not clearing up Librium PO REplace mag and check again Recheck etoh levels - done now < 10 PAT team to reassess again if [place] appropriate, no bed today PAt team asking me if medically ready - IM asking RN to do the stuff above so i have an answer Rechekc mag 12 NN Add PT.OT to check that gait instability Vitals Vitals Vital Signs Date Time Temp Pulse Resp B/P (MAP) Pulse Ox O2 Delivery O2 Flow Rate FiO2 08/27/19 10:41 98.1 79 20 130/77 (94) 93 Nasal Cannula 2.0 98.1 Physical Exam General: Alert, Oriented X3, Cooperative Heart: Regular rate Lungs: Clear Abdomen: Normal bowel sounds Extremities: No clubbing, No cyanosis Skin: No rashes, No significant lesion Labs LABS Laboratory Tests Test 08/27/19 08:50 White Blood Count 3.0 x10^3/uL (4.0-11.0) Red Blood Count 3.67 x10^6/uL (4.30-5.70) Hemoglobin 12.7 g/dL (13.0-17.5) Hematocrit 37.8 % (39.0-53.0) Mean Corpuscular Volume 103 fL (79-100) Mean Corpuscular Hemoglobin 35 pg (25-35) Mean Corpuscular Hemoglobin Concent 34 g/dL (31-37) Red Cell Distribution Width 17.5 % (11.5-14.5) Platelet Count 56 x10^3/uL (140-400) Neutrophils (%) (Auto) 59 % (31-73) Lymphocytes (%) (Auto) 29 % (24-48) Monocytes (%) (Auto) 10 % (0-9) Eosinophils (%) (Auto) 2 % (0-3) Basophils (%) (Auto) 1 % (0-3) Neutrophils # (Auto) 1.7 x10^3/uL (1.8-7.7) Lymphocytes # (Auto) 0.8 x10^3/uL (1.0-4.8) Monocytes # (Auto) 0.3 x10^3/uL (0.0-1.1) Eosinophils # (Auto) 0.0 x10^3/uL (0.0-0.7) Basophils # (Auto) 0.0 x10^3/uL (0.0-0.2) Sodium Level 141 mmol/L (136-145) Potassium Level 3.0 mmol/L (3.5-5.1) Chloride Level 105 mmol/L (98-107) Carbon Dioxide Level 28 mmol/L (21-32) Anion Gap 8 (6-14) Blood Urea Nitrogen 6 mg/dL (8-26) Creatinine 0.8 mg/dL (0.7-1.3) Estimated GFR (Cockcroft-Gault) 114.3 Glucose Level 97 mg/dL (70-99) Calcium Level 8.6 mg/dL (8.5-10.1) Magnesium Level 1.6 mg/dL (1.8-2.4) Ethyl Alcohol Level < 10 mg/dL (0-10) Review of Systems Review of Systems thristy, hungry, gait unsteady, rest of 14 pt neg Assessment and Plan Assessmemt and Plan Problems Medical Problems: (1) Aggressive behavior Status: Acute (2) Alcohol intoxication Status: Acute (3) 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 Labs Laboratory Tests Test 08/25/19 14:30 08/26/19 04:35 08/27/19 08:50 O2 Saturation 95 % (92-99) Arterial Blood pH 7.41 (7.35-7.45) Arterial Blood pCO2 at Patient Temp 34 mmHg (35-46) Arterial Blood pO2 at Patient Temp 80 mmHg (85-108) Arterial Blood HCO3 21 mmol/L (21-28) Arterial Blood Base Excess -3 mmol/L (-3-3) FiO2 40 White Blood Count 3.4 x10^3/uL (4.0-11.0) 3.0 x10^3/uL (4.0-11.0) Red Blood Count 3.69 x10^6/uL (4.30-5.70) 3.67 x10^6/uL (4.30-5.70) Hemoglobin 12.7 g/dL (13.0-17.5) 12.7 g/dL (13.0-17.5) Hematocrit 38.5 % (39.0-53.0) 37.8 % (39.0-53.0) Mean Corpuscular Volume 104 fL (79-100) 103 fL (79-100) Mean Corpuscular Hemoglobin 35 pg (25-35) 35 pg (25-35) Mean Corpuscular Hemoglobin Concent 33 g/dL (31-37) 34 g/dL (31-37) Red Cell Distribution Width 17.8 % (11.5-14.5) 17.5 % (11.5-14.5) Platelet Count 54 x10^3/uL (140-400) 56 x10^3/uL (140-400) Neutrophils (%) (Auto) 58 % (31-73) 59 % (31-73) Lymphocytes (%) (Auto) 27 % (24-48) 29 % (24-48) Monocytes (%) (Auto) 12 % (0-9) 10 % (0-9) Eosinophils (%) (Auto) 2 % (0-3) 2 % (0-3) Basophils (%) (Auto) 1 % (0-3) 1 % (0-3) Neutrophils # (Auto) 2.0 x10^3/uL (1.8-7.7) 1.7 x10^3/uL (1.8-7.7) Lymphocytes # (Auto) 0.9 x10^3/uL (1.0-4.8) 0.8 x10^3/uL (1.0-4.8) Monocytes # (Auto) 0.4 x10^3/uL (0.0-1.1) 0.3 x10^3/uL (0.0-1.1) Eosinophils # (Auto) 0.1 x10^3/uL (0.0-0.7) 0.0 x10^3/uL (0.0-0.7) Basophils # (Auto) 0.0 x10^3/uL (0.0-0.2) 0.0 x10^3/uL (0.0-0.2) Sodium Level 146 mmol/L (136-145) 141 mmol/L (136-145) Potassium Level 3.8 mmol/L (3.5-5.1) 3.0 mmol/L (3.5-5.1) Chloride Level 113 mmol/L (98-107) 105 mmol/L (98-107) Carbon Dioxide Level 26 mmol/L (21-32) 28 mmol/L (21-32) Anion Gap 7 (6-14) 8 (6-14) Blood Urea Nitrogen 6 mg/dL (8-26) 6 mg/dL (8-26) Creatinine 0.8 mg/dL (0.7-1.3) 0.8 mg/dL (0.7-1.3) Estimated GFR (Cockcroft-Gault) 114.3 114.3 Glucose Level 79 mg/dL (70-99) 97 mg/dL (70-99) Calcium Level 8.5 mg/dL (8.5-10.1) 8.6 mg/dL (8.5-10.1) Magnesium Level 1.5 mg/dL (1.8-2.4) 1.6 mg/dL (1.8-2.4) Ethyl Alcohol Level < 10 mg/dL (0-10) Laboratory Tests Test 08/27/19 08:50 White Blood Count 3.0 x10^3/uL (4.0-11.0) Red Blood Count 3.67 x10^6/uL (4.30-5.70) Hemoglobin 12.7 g/dL (13.0-17.5) Hematocrit 37.8 % (39.0-53.0) Mean Corpuscular Volume 103 fL (79-100) Mean Corpuscular Hemoglobin 35 pg (25-35) Mean Corpuscular Hemoglobin Concent 34 g/dL (31-37) Red Cell Distribution Width 17.5 % (11.5-14.5) Platelet Count 56 x10^3/uL (140-400) Neutrophils (%) (Auto) 59 % (31-73) Lymphocytes (%) (Auto) 29 % (24-48) Monocytes (%) (Auto) 10 % (0-9) Eosinophils (%) (Auto) 2 % (0-3) Basophils (%) (Auto) 1 % (0-3) Neutrophils # (Auto) 1.7 x10^3/uL (1.8-7.7) Lymphocytes # (Auto) 0.8 x10^3/uL (1.0-4.8) Monocytes # (Auto) 0.3 x10^3/uL (0.0-1.1) Eosinophils # (Auto) 0.0 x10^3/uL (0.0-0.7) Basophils # (Auto) 0.0 x10^3/uL (0.0-0.2) Sodium Level 141 mmol/L (136-145) Potassium Level 3.0 mmol/L (3.5-5.1) Chloride Level 105 mmol/L (98-107) Carbon Dioxide Level 28 mmol/L (21-32) Anion Gap 8 (6-14) Blood Urea Nitrogen 6 mg/dL (8-26) Creatinine 0.8 mg/dL (0.7-1.3) Estimated GFR (Cockcroft-Gault) 114.3 Glucose Level 97 mg/dL (70-99) Calcium Level 8.6 mg/dL (8.5-10.1) Magnesium Level 1.6 mg/dL (1.8-2.4) Ethyl Alcohol Level < 10 mg/dL (0-10) Microbiology 08/24/19 Urine Culture - Final, Complete 08/24/19 Urine Culture Result 1 (ERICK) - Final, Complete Medications Current Medications Succinylcholine Chloride (Anectine) 200 mg STK-MED ONCE .ROUTE ; Start 08/24/19 at 00:11; Stop 08/24/19 at 00:12; Status DC Propofol 100 ml @ 0 mls/hr CONT PRN IV SEE PROTOCOL Last administered on 08/25/19at 09:16; Start 08/24/19 at 00:30; Stop 08/25/19 at 20:09; Status DC Fentanyl Citrate (Fentanyl 2ml Vial) 50 mcg PRN Q1HR PRN IV SEE COMMENTS Last administered on 08/25/19at 05:00; Start 08/24/19 at 00:30; Stop 08/25/19 at 20:09; Status DC Chlorhexidine Gluconate (Peridex) 15 ml BID MM Last administered on 08/25/19at 07:42; Start 08/24/19 at 09:00; Stop 08/25/19 at 19:18; Status DC Morphine Sulfate (Morphine Sulfate) 2 mg PRN Q1HR PRN IV SEE COMMENTS. Last administered on 08/24/19at 20:32; Start 08/24/19 at 00:30; Stop 08/25/19 at 20:09; Status DC Midazolam HCl (Versed) 1 mg PRN Q30MIN PRN IV SEE COMMENTS. Last administered on 08/24/19at 20:32; Start 08/24/19 at 00:30; Stop 08/25/19 at 20:09; Status DC Propofol 50 ml @ As Directed STK-MED ONCE IV ; Start 08/24/19 at 00:21; Stop 08/24/19 at 00:22; Status DC Etomidate (Amidate) 20 mg STK-MED ONCE IV ; Start 08/24/19 at 01:02; Stop 08/24/19 at 01:02; Status DC Etomidate (Amidate) 20 mg 1X ONCE IV Last administered on 08/24/19at 02:09; Start 08/24/19 at 01:45; Stop 08/24/19 at 01:46; Status DC Succinylcholine Chloride (Anectine) 100 mg 1X ONCE IV Last administered on 08/24/19at 02:09; Start 08/24/19 at 01:45; Stop 08/24/19 at 01:46; Status DC Propofol 50 ml @ As Directed STK-MED ONCE IV ; Start 08/24/19 at 02:17; Stop 08/24/19 at 02:18; Status DC Ondansetron HCl (Zofran) 4 mg PRN Q8HRS PRN IV NAUSEA/VOMITING; Start 08/24/19 at 02:30; Stop 08/25/19 at 02:29; Status DC Albuterol/ Ipratropium (Duoneb) 3 ml RTQID NEB Last administered on 08/24/19at 19:55; Start 08/24/19 at 08:00; Stop 08/25/19 at 07:59; Status DC Sodium Chloride 1,000 ml @ 1,000 mls/hr 1X ONCE IV Last administered on at 04:30; Start 08/24/19 at 03:30; Stop 08/24/19 at 04:29; Status DC Sodium Chloride 1,000 ml @ 100 mls/hr Q10H IV Last administered on 08/26/19at 06:20; Start 08/24/19 at 04:30; Stop 08/26/19 at 11:39; Status DC Dextrose (Dextrose 50%-Water Syringe) 25 gm STK-MED ONCE IV ; Start 08/24/19 at 11:31; Stop 08/24/19 at 11:32; Status DC Pantoprazole Sodium (PROTONIX VIAL for IV PUSH) 40 mg DAILYAC IVP Last administered on 08/27/19at 08:10; Start 08/24/19 at 13:00; Stop 08/27/19 at 08:36; Status DC Midazolam HCl 100 ml @ 5 mls/hr CONT PRN IV SEE I/O RECORD Last administered on 08/24/19at 21:26; Start 08/24/19 at 21:15; Stop 08/25/19 at 20:12; Status DC Dexmedetomidine HCl 400 mcg/ Sodium Chloride 100 ml @ 0 mls/hr CONT PRN IV ANXIETY / AGITATION Last administered on 08/25/19at 10:56; Start 08/25/19 at 10:30; Stop 08/25/19 at 20:12; Status DC Sodium Chloride 500 ml @ 500 mls/hr 1X PRN PRN IV PER PROTOCOL; Start 08/25/19 at 10:30; Stop 08/25/19 at 20:12; Status DC Atropine Sulfate (ATROPINE 0.5mg SYRINGE) 0.5 mg PRN Q5MIN PRN IV SEE COMMENTS; Start 08/25/19 at 10:30; Stop 08/25/19 at 20:12; Status DC Lorazepam (Ativan Inj) 0.5 mg 1X ONCE IV Last administered on 08/25/19at 17:05; Start 08/25/19 at 16:45; Stop 08/25/19 at 16:46; Status DC Lorazepam (Ativan) 4 mg PRN Q1HR PRN PO For CIWA 8-14; Start 08/25/19 at 18:00 Lorazepam (Ativan) 8 mg PRN Q1HR PRN PO For CIWA 15 or greater; Start 08/25/19 at 18:00 Lorazepam (Ativan Inj) 2 mg PRN Q1HR PRN IV For CIWA 8-14 Last administered on 08/27/19at 09:34; Start 08/25/19 at 18:00 Lorazepam (Ativan Inj) 4 mg PRN Q1HR PRN IV For CIWA 15 or greater; Start 08/25/19 at 18:00 Morphine Sulfate (Morphine Sulfate) 2 mg PRN Q2HR PRN IV MILD PAIN 1-3 Last administered on 08/26/19at 06:10; Start 08/25/19 at 20:30 Fentanyl Citrate (Fentanyl 2ml Vial) 75 mcg Q4HRS PRN IV MOD TO SEVERE PAIN Last administered on 08/27/19at 11:00; Start 08/26/19 at 10:30 Furosemide (Lasix) 40 mg 1X ONCE IVP Last administered on 08/26/19at 11:36; Start 08/26/19 at 11:00; Stop 08/26/19 at 11:01; Status DC Magnesium Sulfate 50 ml @ 25 mls/hr 1X ONCE IV ; Start 08/26/19 at 11:45; Stop 08/26/19 at 13:44; Status UNV Magnesium Sulfate 50 ml @ 25 mls/hr 1X ONCE IV Last administered on 08/26/19at 13:08; Start 08/26/19 at 11:45; Stop 08/26/19 at 13:44; Status DC Magnesium Sulfate 50 ml @ 25 mls/hr 1X ONCE IV Last administered on 08/27/19at 11:05; Start 08/27/19 at 08:45; Stop 08/27/19 at 10:44; Status DC Active Scripts Active Lorazepam 0.5 Mg Tablet 1 Tab PO TID 7 Days Oxycodone Hcl 5 Mg Capsule 5 Mg PO PRN Q6HRS PRN 10 Days Multivitamins (Multivitamin) 1 Each Tablet 1 Tab PO DAILY Folic Acid 1 Mg Tablet 1 Tab PO DAILY Vitamin B-1 (Thiamine Hcl) 100 Mg Tablet 100 Mg PO DAILY 30 Days Famotidine 20 Mg Tablet 20 Mg PO BID 30 Days Feosol (Ferrous Sulfate) 325 Mg Tablet 325 Mg PO DAILYWBKFT 30 Days Reported Gabapentin 600 Mg Tablet 600 Mg PO TID Haloperidol 5 Mg Tablet 1 Tab PO BID Zyprexa (Olanzapine) 5 Mg Tablet 1 Tab PO QHS Prazosin Hcl 1 Mg Capsule 1 Cap PO QHS Trazodone Hcl 100 Mg Tablet 1 Tab PO QHS Hydroxyzine Hcl 25 Mg Tablet 3 Tab PO TID Zoloft (Sertraline Hcl) 50 Mg Tablet 1 Tab PO DAILY Vitals/I & O Vital Sign - Last 24 Hours 08/26/19 08/26/19 08/26/19 08/26/19 11:36 12:00 15:00 15:57 Temp 98.2 98.4 98.2 98.4 Pulse 99 94 Resp 20 18 B/P (MAP) 125/83 (97) 116/67 (83) Pulse Ox 95 95 O2 Delivery Nasal Cannula Nasal Cannula Nasal Cannula Nasal Cannula O2 Flow Rate 5.0 4.0 3.0 3.0 08/26/19 08/26/19 08/26/19 08/26/19 16:33 19:00 20:00 21:15 Temp 98.5 98.5 Pulse 87 Resp 18 B/P (MAP) 120/70 (87) Pulse Ox 95 O2 Delivery Nasal Cannula Nasal Cannula Nasal Cannula Nasal Cannula O2 Flow Rate 3.0 3.0 3.0 08/26/19 08/26/19 08/27/19 08/27/19 21:45 23:02 02:00 02:30 Temp 98.4 98.4 Pulse 79 Resp 20 B/P (MAP) 106/62 (77) Pulse Ox 95 O2 Delivery Nasal Cannula Nasal Cannula Nasal Cannula Nasal Cannula O2 Flow Rate 3.0 3.0 08/27/19 08/27/19 08/27/19 08/27/19 03:00 06:25 07:08 10:41 Temp 97.8 98.5 98.1 97.8 98.5 98.1 Pulse 69 80 79 Resp 18 18 20 B/P (MAP) 118/78 (91) 131/84 (100) 130/77 (94) Pulse Ox 97 97 93 93 O2 Delivery Nasal Cannula Nasal Cannula Nasal Cannula Nasal Cannula O2 Flow Rate 3.0 3.0 3.0 2.0 Intake and Output 08/26/19 08/26/19 08/27/19 14:59 22:59 06:59 Intake Total 225 ml 880 ml 300 ml Output Total 3300 ml 925 ml Balance -3075 ml -45 ml 300 ml SONAL SANDS MD Aug 27, 2019 11:14
[2019-08-27] MEDS ORDERED: IV NORMAL SALINE 1000ML BAG 1,000 ML IV SCH (11:15)
--- NOTE | 2019-08-27 11:46 | PDOC ---
PULMONARY PROGRESS NOTES Subjective extubated 08/25 on canula , down to 2 litres Vitals Vital Signs Date Time Temp Pulse Resp B/P (MAP) Pulse Ox O2 Delivery O2 Flow Rate FiO2 08/27/19 10:41 98.1 79 20 130/77 (94) 93 Nasal Cannula 2.0 98.1 General: Alert, No acute distress Lungs: Clear Cardiovascular: S1 Abdomen: Soft Neuro Exam: Alert Extremities: Other (2+edema) Skin: Warm Labs Laboratory Tests Test 08/25/19 14:30 08/26/19 04:35 08/27/19 08:50 O2 Saturation 95 % (92-99) Arterial Blood pH 7.41 (7.35-7.45) Arterial Blood pCO2 at Patient Temp 34 mmHg (35-46) Arterial Blood pO2 at Patient Temp 80 mmHg (85-108) Arterial Blood HCO3 21 mmol/L (21-28) Arterial Blood Base Excess -3 mmol/L (-3-3) FiO2 40 White Blood Count 3.4 x10^3/uL (4.0-11.0) 3.0 x10^3/uL (4.0-11.0) Red Blood Count 3.69 x10^6/uL (4.30-5.70) 3.67 x10^6/uL (4.30-5.70) Hemoglobin 12.7 g/dL (13.0-17.5) 12.7 g/dL (13.0-17.5) Hematocrit 38.5 % (39.0-53.0) 37.8 % (39.0-53.0) Mean Corpuscular Volume 104 fL (79-100) 103 fL (79-100) Mean Corpuscular Hemoglobin 35 pg (25-35) 35 pg (25-35) Mean Corpuscular Hemoglobin Concent 33 g/dL (31-37) 34 g/dL (31-37) Red Cell Distribution Width 17.8 % (11.5-14.5) 17.5 % (11.5-14.5) Platelet Count 54 x10^3/uL (140-400) 56 x10^3/uL (140-400) Neutrophils (%) (Auto) 58 % (31-73) 59 % (31-73) Lymphocytes (%) (Auto) 27 % (24-48) 29 % (24-48) Monocytes (%) (Auto) 12 % (0-9) 10 % (0-9) Eosinophils (%) (Auto) 2 % (0-3) 2 % (0-3) Basophils (%) (Auto) 1 % (0-3) 1 % (0-3) Neutrophils # (Auto) 2.0 x10^3/uL (1.8-7.7) 1.7 x10^3/uL (1.8-7.7) Lymphocytes # (Auto) 0.9 x10^3/uL (1.0-4.8) 0.8 x10^3/uL (1.0-4.8) Monocytes # (Auto) 0.4 x10^3/uL (0.0-1.1) 0.3 x10^3/uL (0.0-1.1) Eosinophils # (Auto) 0.1 x10^3/uL (0.0-0.7) 0.0 x10^3/uL (0.0-0.7) Basophils # (Auto) 0.0 x10^3/uL (0.0-0.2) 0.0 x10^3/uL (0.0-0.2) Sodium Level 146 mmol/L (136-145) 141 mmol/L (136-145) Potassium Level 3.8 mmol/L (3.5-5.1) 3.0 mmol/L (3.5-5.1) Chloride Level 113 mmol/L (98-107) 105 mmol/L (98-107) Carbon Dioxide Level 26 mmol/L (21-32) 28 mmol/L (21-32) Anion Gap 7 (6-14) 8 (6-14) Blood Urea Nitrogen 6 mg/dL (8-26) 6 mg/dL (8-26) Creatinine 0.8 mg/dL (0.7-1.3) 0.8 mg/dL (0.7-1.3) Estimated GFR (Cockcroft-Gault) 114.3 114.3 Glucose Level 79 mg/dL (70-99) 97 mg/dL (70-99) Calcium Level 8.5 mg/dL (8.5-10.1) 8.6 mg/dL (8.5-10.1) Magnesium Level 1.5 mg/dL (1.8-2.4) 1.6 mg/dL (1.8-2.4) Ethyl Alcohol Level < 10 mg/dL (0-10) Laboratory Tests Test 08/27/19 08:50 White Blood Count 3.0 x10^3/uL (4.0-11.0) Red Blood Count 3.67 x10^6/uL (4.30-5.70) Hemoglobin 12.7 g/dL (13.0-17.5) Hematocrit 37.8 % (39.0-53.0) Mean Corpuscular Volume 103 fL (79-100) Mean Corpuscular Hemoglobin 35 pg (25-35) Mean Corpuscular Hemoglobin Concent 34 g/dL (31-37) Red Cell Distribution Width 17.5 % (11.5-14.5) Platelet Count 56 x10^3/uL (140-400) Neutrophils (%) (Auto) 59 % (31-73) Lymphocytes (%) (Auto) 29 % (24-48) Monocytes (%) (Auto) 10 % (0-9) Eosinophils (%) (Auto) 2 % (0-3) Basophils (%) (Auto) 1 % (0-3) Neutrophils # (Auto) 1.7 x10^3/uL (1.8-7.7) Lymphocytes # (Auto) 0.8 x10^3/uL (1.0-4.8) Monocytes # (Auto) 0.3 x10^3/uL (0.0-1.1) Eosinophils # (Auto) 0.0 x10^3/uL (0.0-0.7) Basophils # (Auto) 0.0 x10^3/uL (0.0-0.2) Sodium Level 141 mmol/L (136-145) Potassium Level 3.0 mmol/L (3.5-5.1) Chloride Level 105 mmol/L (98-107) Carbon Dioxide Level 28 mmol/L (21-32) Anion Gap 8 (6-14) Blood Urea Nitrogen 6 mg/dL (8-26) Creatinine 0.8 mg/dL (0.7-1.3) Estimated GFR (Cockcroft-Gault) 114.3 Glucose Level 97 mg/dL (70-99) Calcium Level 8.6 mg/dL (8.5-10.1) Magnesium Level 1.6 mg/dL (1.8-2.4) Ethyl Alcohol Level < 10 mg/dL (0-10) Medications Active Scripts Medications Dose Route/Sig Max Daily Dose Days Date Category Gabapentin 600 Mg Tablet 600 Mg PO TID 08/21/19 Reported Haloperidol 5 Mg Tablet 1 Tab PO BID 08/20/19 Reported Zyprexa (Olanzapine) 5 Mg Tablet 1 Tab PO QHS 08/20/19 Reported Prazosin Hcl 1 Mg Capsule 1 Cap PO QHS 08/18/19 Reported Trazodone Hcl 100 Mg Tablet 1 Tab PO QHS 08/18/19 Reported Hydroxyzine Hcl 25 Mg Tablet 3 Tab PO TID 08/18/19 Reported Zoloft (Sertraline Hcl) 50 Mg Tablet 1 Tab PO DAILY 08/18/19 Reported Lorazepam 0.5 Mg Tablet 1 Tab PO TID 7 07/07/19 Rx Oxycodone Hcl 5 Mg Capsule 5 Mg PO PRN Q6HRS PRN 10 07/07/19 Rx Multivitamins (Multivitamin) 1 Each Tablet 1 Tab PO DAILY 07/07/19 Rx Folic Acid 1 Mg Tablet 1 Tab PO DAILY 07/07/19 Rx Vitamin B-1 (Thiamine Hcl) 100 Mg Tablet 100 Mg PO DAILY 30 07/07/19 Rx Famotidine 20 Mg Tablet 20 Mg PO BID 30 06/24/17 Rx Feosol (Ferrous Sulfate) 325 Mg Tablet 325 Mg PO DAILYWBKFT 30 06/24/17 Rx Comments CXR 08/25 LLL atelectasis Impression . 1. Acute respiratory failure secondary to acute toxic and metabolic encephalopathy. extubated 08/25 2. Acute drug ingestion with gabapentin and Zoloft. 3. Abnormal chest x-ray with poor inspiratory effort./ LLL atelectasis, mild CHF 4. Alcoholic liver disease with possible acute alcoholic hepatitis with increased bilirubin. 5. History of schizophrenia. 6. History of prior suicidal attempts. Plan . 1. We will continue with present canula, s/p lasix with improvement in oxygenation 2. oral nutrition 3. PT consult 5. We will need social security specialist help and psychiatric 6. f/u cxr as needed 7. Monitor LFT 8. Discussed with RN.replace Mg prn ANEESH BRONSON MD Aug 27, 2019 11:46
--- NOTE | 2019-08-27 11:49 | PDOC ---
Subjective: Subjective: Says he had blood in his urine. Wants me to page hospitalist about pain meds. Objective: Objective: 1:1 says drank some soda but that's it. Vital Signs: Vital Signs Date Time Temp Pulse Resp B/P (MAP) Pulse Ox O2 Delivery O2 Flow Rate FiO2 08/27/19 10:41 98.1 79 20 130/77 (94) 93 Nasal Cannula 2.0 98.1 Labs: Laboratory Tests Test 08/27/19 08:50 White Blood Count 3.0 x10^3/uL Red Blood Count 3.67 x10^6/uL Hemoglobin 12.7 g/dL Hematocrit 37.8 % Mean Corpuscular Volume 103 fL Mean Corpuscular Hemoglobin 35 pg Mean Corpuscular Hemoglobin Concent 34 g/dL Red Cell Distribution Width 17.5 % Platelet Count 56 x10^3/uL Neutrophils (%) (Auto) 59 % Lymphocytes (%) (Auto) 29 % Monocytes (%) (Auto) 10 % Eosinophils (%) (Auto) 2 % Basophils (%) (Auto) 1 % Neutrophils # (Auto) 1.7 x10^3/uL Lymphocytes # (Auto) 0.8 x10^3/uL Monocytes # (Auto) 0.3 x10^3/uL Eosinophils # (Auto) 0.0 x10^3/uL Basophils # (Auto) 0.0 x10^3/uL Sodium Level 141 mmol/L Potassium Level 3.0 mmol/L Chloride Level 105 mmol/L Carbon Dioxide Level 28 mmol/L Anion Gap 8 Blood Urea Nitrogen 6 mg/dL Creatinine 0.8 mg/dL Estimated GFR (Cockcroft-Gault) 114.3 Glucose Level 97 mg/dL Calcium Level 8.6 mg/dL Magnesium Level 1.6 mg/dL Ethyl Alcohol Level < 10 mg/dL Imaging: CXR 08/27 pending PE: GEN: NAD ABD: not tender with stethoscope but winces when my hand is placed on abdomen NEURO/PSYCH: A & O 3 A/P: Intentional drug overdose, alcohol abuse Cirrhosis w/ esophageal varices, portal hypertensive gastropathy, AAT MZ phenotype - had recent EGD -- Plans to try regular diet. IV PPI stopped - add PO PPI. JANET STEWART Aug 27, 2019 11:49
[2019-08-27] MEDS: PANTOPRAZOLE 40 MG TABLET.DR. PO SCH (12:38)
--- NOTE | 2019-08-27 15:54 | RAD ---
CHEST AP ONLY Clinical Indication: Shortness of breath Comparison: 08/25/2019, chest x-ray exam. Findings: Portable upright film of the chest was obtained. Heart size is borderline enlarged. Limited pulmonary inflation is noted. Borderline pulmonary vascular structures evident but may be artifactual. There is no pneumothorax. Minimal residual left basilar retrocardiac atelectasis is evident with significant improvement in aeration in the interval. No acute bone abnormality. IMPRESSION: Notable decrease in retrocardiac left basilar atelectasis. Electronically signed by: Aleks Garg MD (08/27/2019 3:51 PM) [facility]
[2019-08-27 19:02] VITALS: BP 120/73
[2019-08-27] MEDS ORDERED: FLU VAX QS 2019-20 (36MOS+)/PF 0.5 ML SYRINGE. VAX IM ONE (21:00)
[2019-08-27 23:00] VITALS: BP 159/87
[2019-08-28] MEDS: fentaNYL PF VIAL 100 MCG/2 ML VIAL IV PRN ×5 (01:12→20:10)
[2019-08-28 03:21] VITALS: BP 151/91
[2019-08-28] MEDS: MORPHINE SULFATE 2 MG/ML VIAL. IV PRN ×4 (06:42→17:15)
[2019-08-28 06:56] VITALS: BP 127/76
--- NOTE | 2019-08-28 07:41 | PDOC ---
PULMONARY PROGRESS NOTES Subjective extubated 08/25 off o2, has occ cough Vitals Vital Signs Date Time Temp Pulse Resp B/P (MAP) Pulse Ox O2 Delivery O2 Flow Rate FiO2 08/28/19 07:14 18 91 08/28/19 06:56 97.9 79 127/76 (93) Room Air 97.9 08/27/19 19:56 2.0 General: Alert, No acute distress Lungs: Clear Cardiovascular: S1, S2 Abdomen: Soft Neuro Exam: Alert Extremities: Other (2+edema) Skin: Warm Labs Laboratory Tests Test 08/27/19 08:50 White Blood Count 3.0 x10^3/uL (4.0-11.0) Red Blood Count 3.67 x10^6/uL (4.30-5.70) Hemoglobin 12.7 g/dL (13.0-17.5) Hematocrit 37.8 % (39.0-53.0) Mean Corpuscular Volume 103 fL (79-100) Mean Corpuscular Hemoglobin 35 pg (25-35) Mean Corpuscular Hemoglobin Concent 34 g/dL (31-37) Red Cell Distribution Width 17.5 % (11.5-14.5) Platelet Count 56 x10^3/uL (140-400) Neutrophils (%) (Auto) 59 % (31-73) Lymphocytes (%) (Auto) 29 % (24-48) Monocytes (%) (Auto) 10 % (0-9) Eosinophils (%) (Auto) 2 % (0-3) Basophils (%) (Auto) 1 % (0-3) Neutrophils # (Auto) 1.7 x10^3/uL (1.8-7.7) Lymphocytes # (Auto) 0.8 x10^3/uL (1.0-4.8) Monocytes # (Auto) 0.3 x10^3/uL (0.0-1.1) Eosinophils # (Auto) 0.0 x10^3/uL (0.0-0.7) Basophils # (Auto) 0.0 x10^3/uL (0.0-0.2) Sodium Level 141 mmol/L (136-145) Potassium Level 3.0 mmol/L (3.5-5.1) Chloride Level 105 mmol/L (98-107) Carbon Dioxide Level 28 mmol/L (21-32) Anion Gap 8 (6-14) Blood Urea Nitrogen 6 mg/dL (8-26) Creatinine 0.8 mg/dL (0.7-1.3) Estimated GFR (Cockcroft-Gault) 114.3 Glucose Level 97 mg/dL (70-99) Calcium Level 8.6 mg/dL (8.5-10.1) Magnesium Level 1.6 mg/dL (1.8-2.4) Ethyl Alcohol Level < 10 mg/dL (0-10) Laboratory Tests Test 08/27/19 08:50 White Blood Count 3.0 x10^3/uL (4.0-11.0) Red Blood Count 3.67 x10^6/uL (4.30-5.70) Hemoglobin 12.7 g/dL (13.0-17.5) Hematocrit 37.8 % (39.0-53.0) Mean Corpuscular Volume 103 fL (79-100) Mean Corpuscular Hemoglobin 35 pg (25-35) Mean Corpuscular Hemoglobin Concent 34 g/dL (31-37) Red Cell Distribution Width 17.5 % (11.5-14.5) Platelet Count 56 x10^3/uL (140-400) Neutrophils (%) (Auto) 59 % (31-73) Lymphocytes (%) (Auto) 29 % (24-48) Monocytes (%) (Auto) 10 % (0-9) Eosinophils (%) (Auto) 2 % (0-3) Basophils (%) (Auto) 1 % (0-3) Neutrophils # (Auto) 1.7 x10^3/uL (1.8-7.7) Lymphocytes # (Auto) 0.8 x10^3/uL (1.0-4.8) Monocytes # (Auto) 0.3 x10^3/uL (0.0-1.1) Eosinophils # (Auto) 0.0 x10^3/uL (0.0-0.7) Basophils # (Auto) 0.0 x10^3/uL (0.0-0.2) Sodium Level 141 mmol/L (136-145) Potassium Level 3.0 mmol/L (3.5-5.1) Chloride Level 105 mmol/L (98-107) Carbon Dioxide Level 28 mmol/L (21-32) Anion Gap 8 (6-14) Blood Urea Nitrogen 6 mg/dL (8-26) Creatinine 0.8 mg/dL (0.7-1.3) Estimated GFR (Cockcroft-Gault) 114.3 Glucose Level 97 mg/dL (70-99) Calcium Level 8.6 mg/dL (8.5-10.1) Magnesium Level 1.6 mg/dL (1.8-2.4) Ethyl Alcohol Level < 10 mg/dL (0-10) Medications Active Scripts Medications Dose Route/Sig Max Daily Dose Days Date Category Gabapentin 600 Mg Tablet 600 Mg PO TID 08/21/19 Reported Haloperidol 5 Mg Tablet 1 Tab PO BID 08/20/19 Reported Zyprexa (Olanzapine) 5 Mg Tablet 1 Tab PO QHS 08/20/19 Reported Prazosin Hcl 1 Mg Capsule 1 Cap PO QHS 08/18/19 Reported Trazodone Hcl 100 Mg Tablet 1 Tab PO QHS 08/18/19 Reported Hydroxyzine Hcl 25 Mg Tablet 3 Tab PO TID 08/18/19 Reported Zoloft (Sertraline Hcl) 50 Mg Tablet 1 Tab PO DAILY 08/18/19 Reported Lorazepam 0.5 Mg Tablet 1 Tab PO TID 7 07/07/19 Rx Oxycodone Hcl 5 Mg Capsule 5 Mg PO PRN Q6HRS PRN 10 07/07/19 Rx Multivitamins (Multivitamin) 1 Each Tablet 1 Tab PO DAILY 07/07/19 Rx Folic Acid 1 Mg Tablet 1 Tab PO DAILY 07/07/19 Rx Vitamin B-1 (Thiamine Hcl) 100 Mg Tablet 100 Mg PO DAILY 30 07/07/19 Rx Famotidine 20 Mg Tablet 20 Mg PO BID 30 06/24/17 Rx Feosol (Ferrous Sulfate) 325 Mg Tablet 325 Mg PO DAILYWBKFT 30 06/24/17 Rx Comments reviewed cxr 08/27 Notable decrease in retrocardiac left basilar atelectasis. Impression . 1. Acute respiratory failure secondary to acute toxic and metabolic encephalopathy. extubated 08/25 2. Acute drug ingestion with gabapentin and Zoloft. 3. Abnormal chest x-ray with poor inspiratory effort./ LLL atelectasis, mild CHF 4. Alcoholic liver disease with possible acute alcoholic hepatitis with increased bilirubin. 5. History of schizophrenia. 6. History of prior suicidal attempts. Plan . 1. 02 titration 2. oral nutrition 3. PT consult 5. We will need clinical social work therapist help and psychiatric 6. fu cxr reviewed. 7. Monitor LFT 8. Discussed with RN.replace Mg prn answered all pt Qs, advised quit smoking for ever ALEJANDRA MCCALLUM MD Aug 28, 2019 07:41
[2019-08-28] MEDS: PANTOPRAZOLE 40 MG TABLET.DR. PO SCH (08:23)
[2019-08-28 11:00] VITALS: BP 144/93
--- NOTE | 2019-08-28 11:09 | PDOC ---
PROGRESS NOTES Chief Complaint Chief Complaint impression EtOH abuse. Suicide attempt Bloody concentrated urine hypomagnesemia wants his fentanyl increased, explained this may be dangerous 38 min pt exam, chart review, > 50% of time spent with exam, chart review, pt care coordination History of Present Illness History of Present Illness impression Low mag EToh 226 on admit Came from ICU s.p CIWA Singer in, concentrated? bloody urine? No uTI on UA SItter at bedside Pt not eating much per sitter GAit unsteady PLAN; singer - IVF if not clearing up Librium PO REplace mag and check again Recheck etoh levels - done now < 10 PAT team to reassess again if [place] appropriate, no bed today PAt team asking me if medically ready - IM asking RN to do the stuff above so i have an answer Rechekc mag 12 NN Add PT.OT //gait instability very anxious Vitals Vitals Vital Signs Date Time Temp Pulse Resp B/P (MAP) Pulse Ox O2 Delivery O2 Flow Rate FiO2 08/28/19 09:40 20 91 Room Air 08/28/19 06:56 97.9 79 127/76 (93) 97.9 08/27/19 19:56 2.0 Physical Exam General: Alert, Oriented X3, Cooperative, mild distress, Other (anxious) Heart: Regular rate, Normal S1 Lungs: Clear Abdomen: Normal bowel sounds Extremities: No clubbing, No cyanosis Skin: No rashes, No significant lesion Assessment and Plan Assessmemt and Plan Problems Medical Problems: (1) Aggressive behavior Status: Acute (2) Alcohol intoxication Status: Acute (3) 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 Labs Laboratory Tests Test 08/27/19 08:50 White Blood Count 3.0 x10^3/uL (4.0-11.0) Red Blood Count 3.67 x10^6/uL (4.30-5.70) Hemoglobin 12.7 g/dL (13.0-17.5) Hematocrit 37.8 % (39.0-53.0) Mean Corpuscular Volume 103 fL (79-100) Mean Corpuscular Hemoglobin 35 pg (25-35) Mean Corpuscular Hemoglobin Concent 34 g/dL (31-37) Red Cell Distribution Width 17.5 % (11.5-14.5) Platelet Count 56 x10^3/uL (140-400) Neutrophils (%) (Auto) 59 % (31-73) Lymphocytes (%) (Auto) 29 % (24-48) Monocytes (%) (Auto) 10 % (0-9) Eosinophils (%) (Auto) 2 % (0-3) Basophils (%) (Auto) 1 % (0-3) Neutrophils # (Auto) 1.7 x10^3/uL (1.8-7.7) Lymphocytes # (Auto) 0.8 x10^3/uL (1.0-4.8) Monocytes # (Auto) 0.3 x10^3/uL (0.0-1.1) Eosinophils # (Auto) 0.0 x10^3/uL (0.0-0.7) Basophils # (Auto) 0.0 x10^3/uL (0.0-0.2) Sodium Level 141 mmol/L (136-145) Potassium Level 3.0 mmol/L (3.5-5.1) Chloride Level 105 mmol/L (98-107) Carbon Dioxide Level 28 mmol/L (21-32) Anion Gap 8 (6-14) Blood Urea Nitrogen 6 mg/dL (8-26) Creatinine 0.8 mg/dL (0.7-1.3) Estimated GFR (Cockcroft-Gault) 114.3 Glucose Level 97 mg/dL (70-99) Calcium Level 8.6 mg/dL (8.5-10.1) Magnesium Level 1.6 mg/dL (1.8-2.4) Ethyl Alcohol Level < 10 mg/dL (0-10) Microbiology 08/24/19 Urine Culture - Final, Complete 08/24/19 Urine Culture Result 1 (ERICK) - Final, Complete Medications Current Medications Succinylcholine Chloride (Anectine) 200 mg STK-MED ONCE .ROUTE ; Start 08/24/19 at 00:11; Stop 08/24/19 at 00:12; Status DC Propofol 100 ml @ 0 mls/hr CONT PRN IV SEE PROTOCOL Last administered on 08/25/19at 09:16; Start 08/24/19 at 00:30; Stop 08/25/19 at 20:09; Status DC Fentanyl Citrate (Fentanyl 2ml Vial) 50 mcg PRN Q1HR PRN IV SEE COMMENTS Last administered on 08/25/19at 05:00; Start 08/24/19 at 00:30; Stop 08/25/19 at 20:09; Status DC Chlorhexidine Gluconate (Peridex) 15 ml BID MM Last administered on 08/25/19at 07:42; Start 08/24/19 at 09:00; Stop 08/25/19 at 19:18; Status DC Morphine Sulfate (Morphine Sulfate) 2 mg PRN Q1HR PRN IV SEE COMMENTS. Last administered on 08/24/19at 20:32; Start 08/24/19 at 00:30; Stop 08/25/19 at 20:09; Status DC Midazolam HCl (Versed) 1 mg PRN Q30MIN PRN IV SEE COMMENTS. Last administered on 08/24/19at 20:32; Start 08/24/19 at 00:30; Stop 08/25/19 at 20:09; Status DC Propofol 50 ml @ As Directed STK-MED ONCE IV ; Start 08/24/19 at 00:21; Stop 08/24/19 at 00:22; Status DC Etomidate (Amidate) 20 mg STK-MED ONCE IV ; Start 08/24/19 at 01:02; Stop 08/24/19 at 01:02; Status DC Etomidate (Amidate) 20 mg 1X ONCE IV Last administered on 08/24/19at 02:09; Start 08/24/19 at 01:45; Stop 08/24/19 at 01:46; Status DC Succinylcholine Chloride (Anectine) 100 mg 1X ONCE IV Last administered on 08/24/19at 02:09; Start 08/24/19 at 01:45; Stop 08/24/19 at 01:46; Status DC Propofol 50 ml @ As Directed STK-MED ONCE IV ; Start 08/24/19 at 02:17; Stop 08/24/19 at 02:18; Status DC Ondansetron HCl (Zofran) 4 mg PRN Q8HRS PRN IV NAUSEA/VOMITING; Start 08/24/19 at 02:30; Stop 08/25/19 at 02:29; Status DC Albuterol/ Ipratropium (Duoneb) 3 ml RTQID NEB Last administered on 08/24/19at 19:55; Start 08/24/19 at 08:00; Stop 08/25/19 at 07:59; Status DC Sodium Chloride 1,000 ml @ 1,000 mls/hr 1X ONCE IV Last administered on 08/24/19at 04:30; Start 08/24/19 at 03:30; Stop 08/24/19 at 04:29; Status DC Sodium Chloride 1,000 ml @ 100 mls/hr Q10H IV Last administered on 08/26/19at 06:20; Start 08/24/19 at 04:30; Stop 08/26/19 at 11:39; Status DC Dextrose (Dextrose 50%-Water Syringe) 25 gm STK-MED ONCE IV ; Start 08/24/19 at 11:31; Stop 08/24/19 at 11:32; Status DC Pantoprazole Sodium (PROTONIX VIAL for IV PUSH) 40 mg DAILYAC IVP Last administered on 08/27/19at 08:10; Start 08/24/19 at 13:00; Stop 08/27/19 at 08:36; Status DC Midazolam HCl 100 ml @ 5 mls/hr CONT PRN IV SEE I/O RECORD Last administered on 08/24/19at 21:26; Start 08/24/19 at 21:15; Stop 08/25/19 at 20:12; Status DC Dexmedetomidine HCl 400 mcg/ Sodium Chloride 100 ml @ 0 mls/hr CONT PRN IV ANXIETY / AGITATION Last administered on 08/25/19at 10:56; Start 08/25/19 at 10:30; Stop 08/25/19 at 20:12; Status DC Sodium Chloride 500 ml @ 500 mls/hr 1X PRN PRN IV PER PROTOCOL; Start 08/25/19 at 10:30; Stop 08/25/19 at 20:12; Status DC Atropine Sulfate (ATROPINE 0.5mg SYRINGE) 0.5 mg PRN Q5MIN PRN IV SEE COMMENTS; Start 08/25/19 at 10:30; Stop 08/25/19 at 20:12; Status DC Lorazepam (Ativan Inj) 0.5 mg 1X ONCE IV Last administered on 08/25/19at 17:05; Start 08/25/19 at 16:45; Stop 08/25/19 at 16:46; Status DC Lorazepam (Ativan) 4 mg PRN Q1HR PRN PO For CIWA 8-14; Start 08/25/19 at 18:00 Lorazepam (Ativan) 8 mg PRN Q1HR PRN PO For CIWA 15 or greater; Start 08/25/19 at 18:00 Lorazepam (Ativan Inj) 2 mg PRN Q1HR PRN IV For CIWA 8-14 Last administered on 08/28/19at 09:05; Start 08/25/19 at 18:00 Lorazepam (Ativan Inj) 4 mg PRN Q1HR PRN IV For CIWA 15 or greater; Start 08/25/19 at 18:00 Morphine Sulfate (Morphine Sulfate) 2 mg PRN Q2HR PRN IV MILD PAIN 1-3 Last administered on 08/28/19at 09:10; Start 08/25/19 at 20:30 Fentanyl Citrate (Fentanyl 2ml Vial) 75 mcg Q4HRS PRN IV MOD TO SEVERE PAIN Last administered on 08/28/19at 05:29; Start 08/26/19 at 10:30 Furosemide (Lasix) 40 mg 1X ONCE IVP Last administered on 08/26/19at 11:36; Start 08/26/19 at 11:00; Stop 08/26/19 at 11:01; Status DC Magnesium Sulfate 50 ml @ 25 mls/hr 1X ONCE IV ; Start 08/26/19 at 11:45; Stop 08/26/19 at 13:44; Status UNV Magnesium Sulfate 50 ml @ 25 mls/hr 1X ONCE IV Last administered on 08/26/19at 13:08; Start 08/26/19 at 11:45; Stop 08/26/19 at 13:44; Status DC Magnesium Sulfate 50 ml @ 25 mls/hr 1X ONCE IV Last administered on 08/27/19at 11:05; Start 08/27/19 at 08:45; Stop 08/27/19 at 10:44; Status DC Sodium Chloride 1,000 ml @ 100 mls/hr Q10H IV ; Start 08/27/19 at 11:15; Stop 08/27/19 at 11:26; Status DC Pantoprazole Sodium (Protonix) 40 mg DAILYAC PO Last administered on 08/28/19at 08:23; Start 08/27/19 at 12:30 Influenza Virus Vaccine Quadrival (Afluria Quad 2019-20 (3yr Up) Syringe) 0.5 ml ONCE ONCE VAX IM Last administered on 08/27/19at 20:37; Start 08/27/19 at 21:00; Stop 08/27/19 at 21:01; Status DC Active Scripts Active Lorazepam 0.5 Mg Tablet 1 Tab PO TID 7 Days Oxycodone Hcl 5 Mg Capsule 5 Mg PO PRN Q6HRS PRN 10 Days Multivitamins (Multivitamin) 1 Each Tablet 1 Tab PO DAILY Folic Acid 1 Mg Tablet 1 Tab PO DAILY Vitamin B-1 (Thiamine Hcl) 100 Mg Tablet 100 Mg PO DAILY 30 Days Famotidine 20 Mg Tablet 20 Mg PO BID 30 Days Feosol (Ferrous Sulfate) 325 Mg Tablet 325 Mg PO DAILYWBKFT 30 Days Reported Gabapentin 600 Mg Tablet 600 Mg PO TID Haloperidol 5 Mg Tablet 1 Tab PO BID Zyprexa (Olanzapine) 5 Mg Tablet 1 Tab PO QHS Prazosin Hcl 1 Mg Capsule 1 Cap PO QHS Trazodone Hcl 100 Mg Tablet 1 Tab PO QHS Hydroxyzine Hcl 25 Mg Tablet 3 Tab PO TID Zoloft (Sertraline Hcl) 50 Mg Tablet 1 Tab PO DAILY Vitals/I & O Vital Sign - Last 24 Hours 08/27/19 08/27/19 08/27/19 08/27/19 12:30 15:00 19:02 19:56 Temp 97.9 97.9 Pulse 81 Resp 18 B/P (MAP) 120/73 (89) Pulse Ox 3 91 O2 Delivery Nasal Cannula Nasal Cannula Nasal Cannula O2 Flow Rate 1.0 2.0 08/27/19 08/27/19 08/27/19 08/28/19 20:33 21:45 23:00 01:12 Temp 98.2 98.2 Pulse 92 Resp 18 18 20 18 B/P (MAP) 159/87 (111) Pulse Ox 91 91 92 91 O2 Delivery Nasal Cannula Nasal Cannula Room Air Nasal Cannula 08/28/19 08/28/19 08/28/19 08/28/19 01:55 03:21 05:29 06:15 Temp 98.1 98.1 Pulse 70 Resp 20 18 17 B/P (MAP) 151/91 (111) Pulse Ox 91 94 94 94 O2 Delivery Nasal Cannula Room Air Nasal Cannula 08/28/19 08/28/19 08/28/19 08/28/19 06:42 06:56 07:14 08:00 Temp 97.9 97.9 Pulse 79 Resp 17 16 18 B/P (MAP) 127/76 (93) Pulse Ox 94 91 91 O2 Delivery Nasal Cannula Room Air Room Air 08/28/19 08/28/19 09:10 09:40 Resp 20 20 Pulse Ox 91 91 O2 Delivery Room Air Room Air Intake and Output 08/27/19 08/27/19 08/28/19 15:00 23:00 07:00 Intake Total 390 ml 320 ml Output Total 420 ml Balance -30 ml 320 ml KORY CRAIG MD Aug 28, 2019 11:09
[2019-08-28 15:00] VITALS: BP 142/98
[2019-08-28] MEDS: THIAMINE 100 MG TABLET. PO SCH (15:25)
[2019-08-28] MEDS: HALOPERIDOL 5 MG TABLET. PO SCH ×2 (15:25→20:09)
[2019-08-28] MEDS: MULTIVITAMIN with MINERAL TABLET. PO SCH (15:25)
[2019-08-28] MEDS: FERROUS SULFATE 325 MG TABLET. PO SCH (15:25)
[2019-08-28] MEDS: FOLIC ACID 1 MG TABLET. PO SCH (15:26)
[2019-08-28] MEDS: SERTRALINE 50 MG TABLET. PO SCH (15:27)
--- NOTE | 2019-08-28 15:54 | NUR ---
on 1:1 observation with the pt, when doing CIWA the pt knows all the things to say and do to get a higher score so that he may get a larger dose of Ativan, he has also been requesting for larger doses of fentanyl and morphine at a shorter period between doses. Urbano Joya RN
[2019-08-28 19:00] VITALS: BP 131/79
[2019-08-28] MEDS: PRAZOSIN 1 MG CAPSULE. PO SCH (20:08)
[2019-08-28] MEDS: OLANZapine 5 MG TABLET PO SCH (20:08)
[2019-08-28] MEDS: FAMOTIDINE 20 MG TABLET. PO SCH (20:09)
[2019-08-28] MEDS ORDERED: traZODone 100 MG TABLET. PO SCH (21:00)
[2019-08-28 23:00] VITALS: BP 126/72
[2019-08-29] MEDS: fentaNYL PF VIAL 100 MCG/2 ML VIAL IV PRN ×3 (01:23→10:01)
[2019-08-29 03:00] VITALS: BP 128/84
[2019-08-29] MEDS: PANTOPRAZOLE 40 MG TABLET.DR. PO SCH (05:40)
[2019-08-29 07:00] VITALS: BP 122/72
--- NOTE | 2019-08-29 08:00 | PDOC ---
PULMONARY PROGRESS NOTES Subjective extubated 08/25 off o2, has cough Vitals Vital Signs Date Time Temp Pulse Resp B/P (MAP) Pulse Ox O2 Delivery O2 Flow Rate FiO2 08/29/19 07:00 77 17 122/72 (89) Room Air 08/29/19 03:00 98.4 93 98.4 08/28/19 20:40 2.0 General: Alert, No acute distress Lungs: Clear Cardiovascular: S1, S2 Abdomen: Soft, Non-tender Neuro Exam: Alert, Oriented Extremities: Other (2+edema) Skin: Warm Labs Laboratory Tests Test 08/27/19 08:50 White Blood Count 3.0 x10^3/uL (4.0-11.0) Red Blood Count 3.67 x10^6/uL (4.30-5.70) Hemoglobin 12.7 g/dL (13.0-17.5) Hematocrit 37.8 % (39.0-53.0) Mean Corpuscular Volume 103 fL (79-100) Mean Corpuscular Hemoglobin 35 pg (25-35) Mean Corpuscular Hemoglobin Concent 34 g/dL (31-37) Red Cell Distribution Width 17.5 % (11.5-14.5) Platelet Count 56 x10^3/uL (140-400) Neutrophils (%) (Auto) 59 % (31-73) Lymphocytes (%) (Auto) 29 % (24-48) Monocytes (%) (Auto) 10 % (0-9) Eosinophils (%) (Auto) 2 % (0-3) Basophils (%) (Auto) 1 % (0-3) Neutrophils # (Auto) 1.7 x10^3/uL (1.8-7.7) Lymphocytes # (Auto) 0.8 x10^3/uL (1.0-4.8) Monocytes # (Auto) 0.3 x10^3/uL (0.0-1.1) Eosinophils # (Auto) 0.0 x10^3/uL (0.0-0.7) Basophils # (Auto) 0.0 x10^3/uL (0.0-0.2) Sodium Level 141 mmol/L (136-145) Potassium Level 3.0 mmol/L (3.5-5.1) Chloride Level 105 mmol/L (98-107) Carbon Dioxide Level 28 mmol/L (21-32) Anion Gap 8 (6-14) Blood Urea Nitrogen 6 mg/dL (8-26) Creatinine 0.8 mg/dL (0.7-1.3) Estimated GFR (Cockcroft-Gault) 114.3 Glucose Level 97 mg/dL (70-99) Calcium Level 8.6 mg/dL (8.5-10.1) Magnesium Level 1.6 mg/dL (1.8-2.4) Ethyl Alcohol Level < 10 mg/dL (0-10) Medications Active Scripts Medications Dose Route/Sig Max Daily Dose Days Date Category Gabapentin 600 Mg Tablet 600 Mg PO TID 08/21/19 Reported Haloperidol 5 Mg Tablet 1 Tab PO BID 08/20/19 Reported Zyprexa (Olanzapine) 5 Mg Tablet 1 Tab PO QHS 08/20/19 Reported Prazosin Hcl 1 Mg Capsule 1 Cap PO QHS 08/18/19 Reported Trazodone Hcl 100 Mg Tablet 1 Tab PO QHS 08/18/19 Reported Hydroxyzine Hcl 25 Mg Tablet 3 Tab PO TID 08/18/19 Reported Zoloft (Sertraline Hcl) 50 Mg Tablet 1 Tab PO DAILY 08/18/19 Reported Lorazepam 0.5 Mg Tablet 1 Tab PO TID 7 07/07/19 Rx Oxycodone Hcl 5 Mg Capsule 5 Mg PO PRN Q6HRS PRN 10 07/07/19 Rx Multivitamins (Multivitamin) 1 Each Tablet 1 Tab PO DAILY 07/07/19 Rx Folic Acid 1 Mg Tablet 1 Tab PO DAILY 07/07/19 Rx Vitamin B-1 (Thiamine Hcl) 100 Mg Tablet 100 Mg PO DAILY 30 07/07/19 Rx Famotidine 20 Mg Tablet 20 Mg PO BID 30 06/24/17 Rx Feosol (Ferrous Sulfate) 325 Mg Tablet 325 Mg PO DAILYWBKFT 30 06/24/17 Rx Comments reviewed cxr 08/27 Notable decrease in retrocardiac left basilar atelectasis. Impression . 1. Acute respiratory failure secondary to acute toxic and metabolic encephalopathy. resolved, extubated 08/25 2. Acute drug ingestion with gabapentin and Zoloft. 3. Abnormal chest x-ray with poor inspiratory effort./ LLL atelectasis, mild CHF 4. Alcoholic liver disease with possible acute alcoholic hepatitis with increased bilirubin. 5. History of schizophrenia. 6. History of prior suicidal attempts. Plan . 1. 02 titration, add BD for cough 2. oral nutrition 3. PT consult 5. We will need professor of social work help and psychiatric 6. fu cxr reviewed. 7. Monitor LFT 8. Discussed with RN.replace Mg prn answered all pt Qs, advised quit smoking for ever ALEJANDRA MCCALLUM MD Aug 29, 2019 08:00
[2019-08-29] MEDS ORDERED: oxyCODONE/APAP 5/325 1 TAB TABLET PO PRN (09:30)
[2019-08-29] MEDS ORDERED: POTASSIUM CHLORIDE 20 MEQ TABLET.ER. PO ONE ×2 (09:30)
[2019-08-29] MEDS ORDERED: MAGNESIUM SULFATE 2GM 50 ML IV ONE (10:00)
[2019-08-29] MEDS: FOLIC ACID 1 MG TABLET. PO SCH (10:05)
[2019-08-29] MEDS: SERTRALINE 50 MG TABLET. PO SCH (10:05)
[2019-08-29] MEDS: HALOPERIDOL 5 MG TABLET. PO SCH ×2 (10:05→21:21)
[2019-08-29] MEDS: THIAMINE 100 MG TABLET. PO SCH (10:05)
[2019-08-29] MEDS: FERROUS SULFATE 325 MG TABLET. PO SCH (10:05)
[2019-08-29] MEDS: MULTIVITAMIN with MINERAL TABLET. PO SCH (10:06)
[2019-08-29] MEDS: FAMOTIDINE 20 MG TABLET. PO SCH ×2 (10:06→21:20)
--- NOTE | 2019-08-29 10:57 | PDOC ---
PROGRESS NOTES Chief Complaint Chief Complaint EtOH abuse. 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 (friday event) FRIDAY: Asking for more pain meds when he is on a lot and actually very sleepy NOw mentions leg pains - i reviewed his MAR - on gabapentin supposed to be Sitter at bedside bec of SI Slated for psych bed but had some medical issues over the weekend and also no bed avail K and mag low on friday (not addressed) PLAN: dc IV pain meds Resume home gabapentin, xanax etc CANCEL CIWA ATIVAN IV or PO Replace mag 2 gms now Replace K 60 PO x 1 Recheck lytes 12 NN LAbs tmr Hopefully psych bed tmr with normalized labs as proof signif time in room Vitals Vitals Vital Signs Date Time Temp Pulse Resp B/P (MAP) Pulse Ox O2 Delivery O2 Flow Rate FiO2 08/29/19 10:01 16 93 Room Air 2.0 08/29/19 07:00 77 122/72 (89) 08/29/19 03:00 98.4 98.4 Physical Exam General: Alert, Oriented X3, Cooperative, mild distress, Other (anxious) Heart: Regular rate, Normal S1 Lungs: Clear Abdomen: Normal bowel sounds Extremities: No clubbing, No cyanosis Skin: No rashes, No significant lesion Review of Systems Review of Systems leg pains, limited ROS (focused on pain) Assessment and Plan Assessmemt and Plan Problems Medical Problems: (1) Aggressive behavior Status: Acute (2) Alcohol intoxication Status: Acute (3) 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 Labs Microbiology 08/24/19 Urine Culture - Final, Complete 08/24/19 Urine Culture Result 1 (ERICK) - Final, Complete Medications Current Medications Succinylcholine Chloride (Anectine) 200 mg STK-MED ONCE .ROUTE ; Start 08/24/19 at 00:11; Stop 08/24/19 at 00:12; Status DC Propofol 100 ml @ 0 mls/hr CONT PRN IV SEE PROTOCOL Last administered on 09:16; Start 08/24/19 at 00:30; Stop 08/25/19 at 20:09; Status DC Fentanyl Citrate (Fentanyl 2ml Vial) 50 mcg PRN Q1HR PRN IV SEE COMMENTS Last administered on 08/25/19at 05:00; Start 08/24/19 at 00:30; Stop 08/25/19 at 20:09; Status DC Chlorhexidine Gluconate (Peridex) 15 ml BID MM Last administered on 08/25/19at 07:42; Start 08/24/19 at 09:00; Stop 08/25/19 at 19:18; Status DC Morphine Sulfate (Morphine Sulfate) 2 mg PRN Q1HR PRN IV SEE COMMENTS. Last administered on 08/24/19at 20:32; Start 08/24/19 at 00:30; Stop 08/25/19 at 20:09; Status DC Midazolam HCl (Versed) 1 mg PRN Q30MIN PRN IV SEE COMMENTS. Last administered on 08/24/19at 20:32; Start 08/24/19 at 00:30; Stop 08/25/19 at 20:09; Status DC Propofol 50 ml @ As Directed STK-MED ONCE IV ; Start 08/24/19 at 00:21; Stop 08/24/19 at 00:22; Status DC Etomidate (Amidate) 20 mg STK-MED ONCE IV ; Start 08/24/19 at 01:02; Stop 08/24/19 at 01:02; Status DC Etomidate (Amidate) 20 mg 1X ONCE IV Last administered on 08/24/19at 02:09; Start 08/24/19 at 01:45; Stop 08/24/19 at 01:46; Status DC Succinylcholine Chloride (Anectine) 100 mg 1X ONCE IV Last administered on 08/24/19at 02:09; Start 08/24/19 at 01:45; Stop 08/24/19 at 01:46; Status DC Propofol 50 ml @ As Directed STK-MED ONCE IV ; Start 08/24/19 at 02:17; Stop 08/24/19 at 02:18; Status DC Ondansetron HCl (Zofran) 4 mg PRN Q8HRS PRN IV NAUSEA/VOMITING; Start 08/24/19 at 02:30; Stop 08/25/19 at 02:29; Status DC Albuterol/ Ipratropium (Duoneb) 3 ml RTQID NEB Last administered on 08/24/19at 1 9:55; Start 08/24/19 at 08:00; Stop 08/25/19 at 07:59; Status DC Sodium Chloride 1,000 ml @ 1,000 mls/hr 1X ONCE IV Last administered on 08/24/19at 04:30; Start 08/24/19 at 03:30; Stop 08/24/19 at 04:29; Status DC Sodium Chloride 1,000 ml @ 100 mls/hr Q10H IV Last administered on 08/26/19at 06:20; Start 08/24/19 at 04:30; Stop 08/26/19 at 11:39; Status DC Dextrose (Dextrose 50%-Water Syringe) 25 gm STK-MED ONCE IV ; Start 08/24/19 at 11:31; Stop 08/24/19 at 11:32; Status DC Pantoprazole Sodium (PROTONIX VIAL for IV PUSH) 40 mg DAILYAC IVP Last administered on 08/27/19at 08:10; Start 08/24/19 at 13:00; Stop 08/27/19 at 08:36; Status DC Midazolam HCl 100 ml @ 5 mls/hr CONT PRN IV SEE I/O RECORD Last administered on 08/24/19at 21:26; Start 08/24/19 at 21:15; Stop 08/25/19 at 20:12; Status DC Dexmedetomidine HCl 400 mcg/ Sodium Chloride 100 ml @ 0 mls/hr CONT PRN IV ANXIETY / AGITATION Last administered on 08/25/19at 10:56; Start 08/25/19 at 10:30; Stop 08/25/19 at 20:12; Status DC Sodium Chloride 500 ml @ 500 mls/hr 1X PRN PRN IV PER PROTOCOL; Start 08/25/19 at 10:30; Stop 08/25/19 at 20:12; Status DC Atropine Sulfate (ATROPINE 0.5mg SYRINGE) 0.5 mg PRN Q5MIN PRN IV SEE COMMENTS; Start 08/25/19 at 10:30; Stop 08/25/19 at 20:12; Status DC Lorazepam (Ativan Inj) 0.5 mg 1X ONCE IV Last administered on 08/25/19at 17:05; Start 08/25/19 at 16:45; Stop 08/25/19 at 16:46; Status DC Lorazepam (Ativan) 4 mg PRN Q1HR PRN PO For CIWA 8-14; Start 08/25/19 at 18:00 Lorazepam (Ativan) 8 mg PRN Q1HR PRN PO For CIWA 15 or greater; Start 08/25/19 at 18:00 Lorazepam (Ativan Inj) 2 mg PRN Q1HR PRN IV For CIWA 8-14 Last administered on 08/29/19at 10:04; Start 08/25/19 at 18:00 Lorazepam (Ativan Inj) 4 mg PRN Q1HR PRN IV For CIWA 15 or greater Last administered on 08/28/19at 15:41; Start 08/25/19 at 18:00 Morphine Sulfate (Morphine Sulfate) 2 mg PRN Q2HR PRN IV MILD PAIN 1-3 Last administered on 08/28/19at 17:15; Start 08/25/19 at 20:30 Fentanyl Citrate (Fentanyl 2ml Vial) 75 mcg Q4HRS PRN IV MOD TO SEVERE PAIN Last administered on 08/29/19at 10:01; Start 08/26/19 at 10:30 Furosemide (Lasix) 40 mg 1X ONCE IVP Last administered on 08/26/19at 11:36; Start 08/26/19 at 11:00; Stop 08/26/19 at 11:01; Status DC Magnesium Sulfate 50 ml @ 25 mls/hr 1X ONCE IV ; Start 08/26/19 at 11:45; Stop 08/26/19 at 13:44; Status UNV Magnesium Sulfate 50 ml @ 25 mls/hr 1X ONCE IV Last administered on 08/26/19at 13:08; Start 08/26/19 at 11:45; Stop 08/26/19 at 13:44; Status DC Magnesium Sulfate 50 ml @ 25 mls/hr 1X ONCE IV Last administered on 08/27/19at 11:05; Start 08/27/19 at 08:45; Stop 08/27/19 at 10:44; Status DC Sodium Chloride 1,000 ml @ 100 mls/hr Q10H IV ; Start 08/27/19 at 11:15; Stop 08/27/19 at 11:26; Status DC Pantoprazole Sodium (Protonix) 40 mg DAILYAC PO Last administered on 08/29/19at 05:40; Start 08/27/19 at 12:30 Influenza Virus Vaccine Quadrival (Afluria Quad 2019-20 (3yr Up) Syringe) 0.5 ml ONCE ONCE VAX IM Last administered on 08/27/19at 20:37; Start 08/27/19 at 21:00; Stop 08/27/19 at 21:01; Status DC Famotidine (Pepcid) 20 mg BID PO Last administered on 08/29/19 10:06; Start 08/28/19 at 21:00 Ferrous Sulfate (Feosol) 325 mg DAILYWBKFT PO Last administered on 08/29/19 10:05; Start 08/28/19 at 15:00 Folic Acid (Folic Acid) 1 mg DAILY PO Last administered on 08/29/19 10:05; Start 08/28/19 at 15:00 Haloperidol (Haldol) 5 mg BID PO Last administered on 08/29/19 10:05; Start 08/28/19 at 15:00 Olanzapine (ZyPREXA) 5 mg QHS PO Last administered on 08/28/19at 20:08; Start 08/28/19 at 21:00 Prazosin HCl (Minipress) 1 mg QHS PO Last administered on 08/28/19 20:08; Start 08/28/19 at 21:00 Sertraline HCl (Zoloft) 50 mg DAILY PO Last administered on 08/29/19at 10:05; Start 08/28/19 at 15:00 Trazodone HCl (Desyrel) 100 mg QHS PO Last administered on 08/28/19at 20:08; Start 08/28/19 at 21:00 Multivitamins (Thera M Plus) 1 tab DAILY PO Last administered on 08/29/19 10:06; Start 08/28/19 at 15:00 Thiamine Mononitrate (Vitamin B-1) 100 mg DAILY PO Last administered on 08/29/19at 10:05; Start 08/28/19 at 15:00 Albuterol/ Ipratropium (Duoneb) 3 ml RTQID NEB ; Start 08/29/19 at 08:00 Potassium Chloride (Klor-Con) 40 meq 1X ONCE PO Last administered on 08/29/19at 10:07; Start 08/29/19 at 09:30; Stop 08/29/19 at 09:31; Status DC Magnesium Sulfate 50 ml @ 25 mls/hr 1X ONCE IV Last administered on 08/29/19at 10:08; Start 08/29/19 at 10:00; Stop 08/29/19 at 11:59 Oxycodone/ Acetaminophen (Percocet 5/325) 1 tab PRN Q4HRS PRN PO PAIN; Start 08/29/19 at 09:30 Potassium Chloride (Klor-Con) 20 meq 1X ONCE PO Last administered on 08/29/19at 10:05; Start 08/29/19 at 09:30; Stop 08/29/19 at 09:31; Status DC Active Scripts Active Lorazepam 0.5 Mg Tablet 1 Tab PO TID 7 Days Oxycodone Hcl 5 Mg Capsule 5 Mg PO PRN Q6HRS PRN 10 Days Multivitamins (Multivitamin) 1 Each Tablet 1 Tab PO DAILY Folic Acid 1 Mg Tablet 1 Tab PO DAILY Vitamin B-1 (Thiamine Hcl) 100 Mg Tablet 100 Mg PO DAILY 30 Days Famotidine 20 Mg Tablet 20 Mg PO BID 30 Days Feosol (Ferrous Sulfate) 325 Mg Tablet 325 Mg PO DAILYWBKFT 30 Days Reported Gabapentin 600 Mg Tablet 600 Mg PO TID Haloperidol 5 Mg Tablet 1 Tab PO BID Zyprexa (Olanzapine) 5 Mg Tablet 1 Tab PO QHS Prazosin Hcl 1 Mg Capsule 1 Cap PO QHS Trazodone Hcl 100 Mg Tablet 1 Tab PO QHS Hydroxyzine Hcl 25 Mg Tablet 3 Tab PO TID Zoloft (Sertraline Hcl) 50 Mg Tablet 1 Tab PO DAILY Vitals/I & O Vital Sign - Last 24 Hours 08/28/19 08/28/19 08/28/19 08/28/19 11:00 11:18 11:48 13:27 Temp 97.7 97.7 Pulse 88 Resp 18 20 20 20 B/P (MAP) 144/93 (110) Pulse Ox 95 95 95 95 O2 Delivery Room Air Room Air Room Air Room Air 08/28/19 08/28/19 08/28/19 08/28/19 13:59 15:00 15:27 17:15 Temp 97.8 97.8 Pulse 82 B/P (MAP) 142/98 (113) Pulse Ox 95 95 95 95 O2 Delivery Room Air Room Air Room Air Room Air O2 Flow Rate 2.0 2.0 2.0 2.0 08/28/19 08/28/19 08/28/19 08/28/19 19:00 20:00 20:08 20:10 Temp 98.1 98.1 Pulse 74 74 Resp 18 18 B/P (MAP) 131/79 (96) 131/79 Pulse Ox 94 94 O2 Delivery Room Air Room Air O2 Flow Rate 2.0 08/28/19 08/28/19 08/29/19 08/29/19 20:40 23:00 01:23 03:00 Temp 98.1 98.4 98.1 98.4 Pulse 72 79 Resp 18 16 18 16 B/P (MAP) 126/72 (90) 128/84 (99) Pulse Ox 94 95 95 93 O2 Delivery Room Air Room Air O2 Flow Rate 2.0 08/29/19 08/29/19 08/29/19 08/29/19 05:40 06:10 07:00 10:01 Pulse 77 Resp 18 18 17 16 B/P (MAP) 122/72 (89) Pulse Ox 93 93 O2 Delivery Room Air Room Air Room Air Room Air O2 Flow Rate 2.0 2.0 Intake and Output 08/28/19 08/28/19 08/29/19 15:00 23:00 07:00 Intake Total 100 ml Balance 100 ml SONAL SANDS MD Aug 29, 2019 10:57
[2019-08-29 11:00] VITALS: BP 116/60
[2019-08-29] MEDS: traZODone 50 MG TABLET. PO SCH ×2 (11:00→21:21)
[2019-08-29] MEDS: IPRATRPIUM/ALBUTEROL 0.5/2.5MG 3 ML NEBU. NEB SCH ×3 (11:42→18:26)
[2019-08-29 13:36] LABS: MAGNESIUM 2.1 mg/dL (1.8-2.4); POTASSIUM 3.7 mmol/L (3.5-5.1)
[2019-08-29] MEDS: hydrOXYzine 25 MG TABLET PO SCH ×2 (14:17→21:20)
[2019-08-29] MEDS: GABAPENTIN 300 MG CAPSULE. PO SCH ×2 (14:17→21:21)
[2019-08-29] MEDS: LORazepam 0.5 MG TABLET PO SCH ×2 (14:19→21:20)
[2019-08-29] MEDS: oxyCODONE IR 5 MG TABLET PO PRN ×2 (14:19→21:22)
[2019-08-29 15:00] VITALS: BP 125/79
[2019-08-29 19:00] VITALS: BP 143/88
[2019-08-29] MEDS: OLANZapine 5 MG TABLET PO SCH (21:20)
[2019-08-29] MEDS: PRAZOSIN 1 MG CAPSULE. PO SCH (21:21)
[2019-08-30 03:00] VITALS: BP 138/73
[2019-08-30] MEDS: oxyCODONE IR 5 MG TABLET PO PRN ×4 (03:28→21:52)
[2019-08-30 06:07] LABS: BASO % 1 % (0-3); EOS % 2 % (0-3); HEMATOCRIT 37.5 % (39.0-53.0); HEMOGLOBIN 12.5 g/dL (13.0-17.5); LYMPH # 0.9 x10^3/uL (1.0-4.8); LYMPH % 34 % (24-48); MEAN CORPUSCULAR HEMOGLOBIN 35 pg (25-35); MEAN CORPUSCULAR HGB CONC 33 g/dL (31-37); MEAN CORPUSCULAR VOLUME 104 fL (79-100); MONO # 0.3 x10^3/uL (0.0-1.1); MONO % 11 % (0-9); NEUT # 1.4 x10^3/uL (1.8-7.7); NEUT % 52 % (31-73); PLATELET COUNT 66 x10^3/uL (140-400); RED BLOOD COUNT 3.61 x10^6/uL (4.30-5.70); RED CELL DISTRIBUTION WIDTH 16.6 % (11.5-14.5); WHITE BLOOD COUNT 2.6 x10^3/uL (4.0-11.0)
[2019-08-30 06:17] LABS: CALCIUM 8.7 mg/dL (8.5-10.1); CREATININE 0.8 mg/dL (0.7-1.3); GFR 114.3; POTASSIUM 3.5 mmol/L (3.5-5.1)
[2019-08-30 07:08] VITALS: BP 129/83
[2019-08-30] MEDS: IPRATRPIUM/ALBUTEROL 0.5/2.5MG 3 ML NEBU. NEB SCH ×4 (07:24→19:51)
[2019-08-30] MEDS: PANTOPRAZOLE 40 MG TABLET.DR. PO SCH ×2 (07:40→08:40)
[2019-08-30] MEDS: FERROUS SULFATE 325 MG TABLET. PO SCH ×2 (07:53→08:41)
[2019-08-30] MEDS: FAMOTIDINE 20 MG TABLET. PO SCH (08:41)
[2019-08-30] MEDS: HALOPERIDOL 5 MG TABLET. PO SCH ×2 (08:41→21:50)
[2019-08-30] MEDS: THIAMINE 100 MG TABLET. PO SCH (08:41)
[2019-08-30] MEDS: SERTRALINE 50 MG TABLET. PO SCH (08:41)
[2019-08-30] MEDS: MULTIVITAMIN with MINERAL TABLET. PO SCH (08:42)
[2019-08-30] MEDS: FOLIC ACID 1 MG TABLET. PO SCH (08:42)
[2019-08-30] MEDS: hydrOXYzine 25 MG TABLET PO SCH ×3 (08:42→21:50)
[2019-08-30] MEDS: GABAPENTIN 300 MG CAPSULE. PO SCH ×3 (08:43→21:51)
[2019-08-30] MEDS: LORazepam 0.5 MG TABLET PO SCH ×3 (08:43→21:50)
--- NOTE | 2019-08-30 08:55 | PDOC ---
PROGRESS NOTES Chief Complaint Chief Complaint EtOH abuse - with acute intoxication on admission Suicide attempt - waiting for psych bed Chronic pain Hypomagnesemia Hypokalemia LEg pains poss neuropathy Concentrated urine resolved Pancytopenia - likely from heavy ETOH use, possibly from medications as well. Unknown hep c and HIV status Acute respiratory failure secondary to acute toxic and metabolic encephalopathy - resolved, extubated 08/25 History of Present Illness History of Present Illness Mr Dsouza is a 29-year-old male who has history of schizophrenia, history of previous suicidal attempts, history of alcohol abuse, DJD, and h/o alpha-1 antitrypsin deficiency. He was brought into the hospital after he took a handful of gabapentin and Zoloft. Exact quantity is unknown. He was intubated in the Emergency Room and extubated on 08/25/19. Seen by pulmonary/critical care in consultation. 08/29: Asking for more pain meds when he is on a lot and actually very sleepy, Sitter at bedside bec of SI. Slated for psych bed but had some medical issues over the weekend and also no bed avail. K and mag low on friday (not addressed) Off O2 overnight. Cough improved. This morning he is sleeping. Upon awakening him he is stating his has acute on chronic bandlike abdominal pain, is requesting an EGD from GI and for me to add back IV fentanyl and increase his oxycodone dosing (he has yet to receive an oxycodone dose). He is also asking f or flexeril and states he will not work with physical therapy. When asked what he does at home for pain he tells me he drinks alcohol until the pain goes away and he passes out. I have advised him I am worried about unintentional overdose from polypharmacy and in response he states, "So I should use a knife when I go home?" I ask if he is still suicidal and he tells me after talking with me he is still suicidal today and would attempt suicide to make it "quicker" next time. He is asking for pain medication to help him sleep. After I left the room he has asked his 1-1 sitter to contact the PAT team so that he can go home. PLAN: dc IV pain meds. Oral pain medications Ok for IV toradol 30mg x1 Resume home gabapentin CANCEL CIWA ATIVAN IV or PO Replace K - oral today, is normalizing Hopefully psych bed with normalized labs as he is medically cleared for d/c now Vitals Vitals Vital Signs Date Time Temp Pulse Resp B/P (MAP) Pulse Ox O2 Delivery O2 Flow Rate FiO2 08/30/19 07:26 92 Room Air 08/30/19 07:08 98.1 74 14 129/83 (98) 98.1 08/30/19 03:00 2.0 Physical Exam General: Alert, Oriented X3, Cooperative, mild distress, Other (anxious) Heart: Regular rate, Normal S1 Lungs: Clear Abdomen: Normal bowel sounds Extremities: No clubbing, No cyanosis Skin: No rashes, No significant lesion Labs LABS Laboratory Tests Test 08/29/19 12:14 08/30/19 05:30 Potassium Level 3.7 mmol/L (3.5-5.1) 3.5 mmol/L (3.5-5.1) Magnesium Level 2.1 mg/dL (1.8-2.4) White Blood Count 2.6 x10^3/uL (4.0-11.0) Red Blood Count 3.61 x10^6/uL (4.30-5.70) Hemoglobin 12.5 g/dL (13.0-17.5) Hematocrit 37.5 % (39.0-53.0) Mean Corpuscular Volume 104 fL (79-100) Mean Corpuscular Hemoglobin 35 pg (25-35) Mean Corpuscular Hemoglobin Concent 33 g/dL (31-37) Red Cell Distribution Width 16.6 % (11.5-14.5) Platelet Count 66 x10^3/uL (140-400) Neutrophils (%) (Auto) 52 % (31-73) Lymphocytes (%) (Auto) 34 % (24-48) Monocytes (%) (Auto) 11 % (0-9) Eosinophils (%) (Auto) 2 % (0-3) Basophils (%) (Auto) 1 % (0-3) Neutrophils # (Auto) 1.4 x10^3/uL (1.8-7.7) Lymphocytes # (Auto) 0.9 x10^3/uL (1.0-4.8) Monocytes # (Auto) 0.3 x10^3/uL (0.0-1.1) Eosinophils # (Auto) 0.0 x10^3/uL (0.0-0.7) Basophils # (Auto) 0.0 x10^3/uL (0.0-0.2) Sodium Level 144 mmol/L (136-145) Chloride Level 109 mmol/L (98-107) Carbon Dioxide Level 28 mmol/L (21-32) Anion Gap 7 (6-14) Blood Urea Nitrogen 4 mg/dL (8-26) Creatinine 0.8 mg/dL (0.7-1.3) Estimated GFR (Cockcroft-Gault) 114.3 Glucose Level 90 mg/dL (70-99) Calcium Level 8.7 mg/dL (8.5-10.1) Assessment and Plan Assessmemt and Plan Problems Medical Problems: (1) Aggressive behavior Status: Acute (2) Alcohol intoxication Status: Acute (3) 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 Labs Laboratory Tests Test 08/29/19 12:14 08/30/19 05:30 Potassium Level 3.7 mmol/L (3.5-5.1) 3.5 mmol/L (3.5-5.1) Magnesium Level 2.1 mg/dL (1.8-2.4) White Blood Count 2.6 x10^3/uL (4.0-11.0) Red Blood Count 3.61 x10^6/uL (4.30-5.70) Hemoglobin 12.5 g/dL (13.0-17.5) Hematocrit 37.5 % (39.0-53.0) Mean Corpuscular Volume 104 fL (79-100) Mean Corpuscular Hemoglobin 35 pg (25-35) Mean Corpuscular Hemoglobin Concent 33 g/dL (31-37) Red Cell Distribution Width 16.6 % (11.5-14.5) Platelet Count 66 x10^3/uL (140-400) Neutrophils (%) (Auto) 52 % (31-73) Lymphocytes (%) (Auto) 34 % (24-48) Monocytes (%) (Auto) 11 % (0-9) Eosinophils (%) (Auto) 2 % (0-3) Basophils (%) (Auto) 1 % (0-3) Neutrophils # (Auto) 1.4 x10^3/uL (1.8-7.7) Lymphocytes # (Auto) 0.9 x10^3/uL (1.0-4.8) Monocytes # (Auto) 0.3 x10^3/uL (0.0-1.1) Eosinophils # (Auto) 0.0 x10^3/uL (0.0-0.7) Basophils # (Auto) 0.0 x10^3/uL (0.0-0.2) Sodium Level 144 mmol/L (136-145) Chloride Level 109 mmol/L (98-107) Carbon Dioxide Level 28 mmol/L (21-32) Anion Gap 7 (6-14) Blood Urea Nitrogen 4 mg/dL (8-26) Creatinine 0.8 mg/dL (0.7-1.3) Estimated GFR (Cockcroft-Gault) 114.3 Glucose Level 90 mg/dL (70-99) Calcium Level 8.7 mg/dL (8.5-10.1) Laboratory Tests Test 08/29/19 12:14 08/30/19 05:30 Potassium Level 3.7 mmol/L (3.5-5.1) 3.5 mmol/L (3.5-5.1) Magnesium Level 2.1 mg/dL (1.8-2.4) White Blood Count 2.6 x10^3/uL (4.0-11.0) Red Blood Count 3.61 x10^6/uL (4.30-5.70) Hemoglobin 12.5 g/dL (13.0-17.5) Hematocrit 37.5 % (39.0-53.0) Mean Corpuscular Volume 104 fL (79-100) Mean Corpuscular Hemoglobin 35 pg (25-35) Mean Corpuscular Hemoglobin Concent 33 g/dL (31-37) Red Cell Distribution Width 16.6 % (11.5-14.5) Platelet Count 66 x10^3/uL (140-400) Neutrophils (%) (Auto) 52 % (31-73) Lymphocytes (%) (Auto) 34 % (24-48) Monocytes (%) (Auto) 11 % (0-9) Eosinophils (%) (Auto) 2 % (0-3) Basophils (%) (Auto) 1 % (0-3) Neutrophils # (Auto) 1.4 x10^3/uL (1.8-7.7) Lymphocytes # (Auto) 0.9 x10^3/uL (1.0-4.8) Monocytes # (Auto) 0.3 x10^3/uL (0.0-1.1) Eosinophils # (Auto) 0.0 x10^3/uL (0.0-0.7) Basophils # (Auto) 0.0 x10^3/uL (0.0-0.2) Sodium Level 144 mmol/L (136-145) Chloride Level 109 mmol/L (98-107) Carbon Dioxide Level 28 mmol/L (21-32) Anion Gap 7 (6-14) Blood Urea Nitrogen 4 mg/dL (8-26) Creatinine 0.8 mg/dL (0.7-1.3) Estimated GFR (Cockcroft-Gault) 114.3 Glucose Level 90 mg/dL (70-99) Calcium Level 8.7 mg/dL (8.5-10.1) Microbiology 08/24/19 Urine Culture - Final, Complete 08/24/19 Urine Culture Result 1 (ERICK) - Final, Complete Medications Current Medications Succinylcholine Chloride (Anectine) 200 mg STK-MED ONCE .ROUTE ; Start 08/24/19 at 00:11; Stop 08/24/19 at 00:12; Status DC Propofol 100 ml @ 0 mls/hr CONT PRN IV SEE PROTOCOL Last administered on 08/25/19at 09:16; Start 08/24/19 at 00:30; Stop 08/25/19 at 20:09; Status DC Fentanyl Citrate (Fentanyl 2ml Vial) 50 mcg PRN Q1HR PRN IV SEE COMMENTS Last administered on 08/25/19at 05:00; Start 08/24/19 at 00:30; Stop 08/25/19 at 20:09; Status DC Chlorhexidine Gluconate (Peridex) 15 ml BID MM Last administered on 08/25/19at 07:42; Start 08/24/19 at 09:00; Stop 08/25/19 at 19:18; Status DC Morphine Sulfate (Morphine Sulfate) 2 mg PRN Q1HR PRN IV SEE COMMENTS. Last administered on 08/24/19at 20:32; Start 08/24/19 at 00:30; Stop 08/25/19 at 20:09; Status DC Midazolam HCl (Versed) 1 mg PRN Q30MIN PRN IV SEE COMMENTS. Last administered on 08/24/19at 20:32; Start 08/24/19 at 00:30; Stop 08/25/19 at 20:09; Status DC Propofol 50 ml @ As Directed STK-MED ONCE IV ; Start 08/24/19 at 00:21; Stop 08/24/19 at 00:22; Status DC Etomidate (Amidate) 20 mg STK-MED ONCE IV ; Start 08/24/19 at 01:02; Stop 08/24/19 at 01:02; Status DC Etomidate (Amidate) 20 mg 1X ONCE IV Last administered on 08/24/19at 02:09; Start 08/24/19 at 01:45; Stop 08/24/19 at 01:46; Status DC Succinylcholine Chloride (Anectine) 100 mg 1X ONCE IV Last administered on 08/24/19at 02:09; Start 08/24/19 at 01:45; Stop 08/24/19 at 01:46; Status DC Propofol 50 ml @ As Directed STK-MED ONCE IV ; Start 08/24/19 at 02:17; Stop 08/24/19 at 02:18; Status DC Ondansetron HCl (Zofran) 4 mg PRN Q8HRS PRN IV NAUSEA/VOMITING; Start 08/24/19 at 02:30; Stop 08/25/19 at 02:29; Status DC Albuterol/ Ipratropium (Duoneb) 3 ml RTQID NEB Last administered on 08/24/19at 19:55; Start 08/24/19 at 08:00; Stop 08/25/19 at 07:59; Status DC Sodium Chloride 1,000 ml @ 1,000 mls/hr 1X ONCE IV Last administered on 08/24/19at 04:30; Start 08/24/19 at 03:30; Stop 08/24/19 at 04:29; Status DC Sodium Chloride 1,000 ml @ 100 mls/hr Q10H IV Last administered on 08/26/19at 06:20; Start 08/24/19 at 04:30; Stop 08/26/19 at 11:39; Status DC Dextrose (Dextrose 50%-Water Syringe) 25 gm STK-MED ONCE IV ; Start 08/24/19 at 11:31; Stop 08/24/19 at 11:32; Status DC Pantoprazole Sodium (PROTONIX VIAL for IV PUSH) 40 mg DAILYAC IVP Last administered on 08/27/19at 08:10; Start 08/24/19 at 13:00; Stop 08/27/19 at 08:36; Status DC Midazolam HCl 100 ml @ 5 mls/hr CONT PRN IV SEE I/O RECORD Last administered on 08/24/19at 21:26; Start 08/24/19 at 21:15; Stop 08/25/19 at 20:12; Status DC Dexmedetomidine HCl 400 mcg/ Sodium Chloride 100 ml @ 0 mls/hr CONT PRN IV ANXIETY / AGITATION Last administered on 08/25/19at 10:56; Start 08/25/19 at 10:30; Stop 08/25/19 at 20:12; Status DC Sodium Chloride 500 ml @ 500 mls/hr 1X PRN PRN IV PER PROTOCOL; Start 08/25/19 at 10:30; Stop 08/25/19 at 20:12; Status DC Atropine Sulfate (ATROPINE 0.5mg SYRINGE) 0.5 mg PRN Q5MIN PRN IV SEE COMMENTS; Start 08/25/19 at 10:30; Stop 08/25/19 at 20:12; Status DC Lorazepam (Ativan Inj) 0.5 mg 1X ONCE IV Last administered on 08/25/19at 17:05; Start 08/25/19 at 16:45; Stop 08/25/19 at 16:46; Status DC Lorazepam (Ativan) 4 mg PRN Q1HR PRN PO For CIWA 8-14; Start 08/25/19 at 18:00; Stop 08/29/19 at 10:53; Status DC Lorazepam (Ativan) 8 mg PRN Q1HR PRN PO For CIWA 15 or greater; Start 08/25/19 at 18:00; Stop 08/29/19 at 10:53; Status DC Lorazepam (Ativan Inj) 2 mg PRN Q1HR PRN IV For CIWA 8-14 Last administered on 08/29/19at 10:04; Start 08/25/19 at 18:00; Stop 08/29/19 at 10:53; Status DC Lorazepam (Ativan Inj) 4 mg PRN Q1HR PRN IV For CIWA 15 or greater Last administered on 08/28/19at 15:41; Start 08/25/19 at 18:00; Stop 08/29/19 at 10:53; Status DC Morphine Sulfate (Morphine Sulfate) 2 mg PRN Q2HR PRN IV MILD PAIN 1-3 Last administered on 08/28/19at 17:15; Start 08/25/19 at 20:30; Stop 08/29/19 at 10:53; Status DC Fentanyl Citrate (Fentanyl 2ml Vial) 75 mcg Q4HRS PRN IV MOD TO SEVERE PAIN Last administered on 08/29/19at 10:01; Start 08/26/19 at 10:30; Stop 08/29/19 at 10:53; Status DC Furosemide (Lasix) 40 mg 1X ONCE IVP Last administered on 08/26/19at 11:36; Start 08/26/19 at 11:00; Stop 08/26/19 at 11:01; Status DC Magnesium Sulfate 50 ml @ 25 mls/hr 1X ONCE IV ; Start 08/26/19 at 11:45; Stop 08/26/19 at 13:44; Status UNV Magnesium Sulfate 50 ml @ 25 mls/hr 1X ONCE IV Last administered on 08/26/19at 13:08; Start 08/26/19 at 11:45; Stop 08/26/19 at 13:44; Status DC Magnesium Sulfate 50 ml @ 25 mls/hr 1X ONCE IV Last administered on 08/27/19at 11:05; Start 08/27/19 at 08:45; Stop 08/27/19 at 10:44; Status DC Sodium Chloride 1,000 ml @ 100 mls/hr Q10H IV ; Start 08/27/19 at 11:15; Stop 08/27/19 at 11:26; Status DC Pantoprazole Sodium (Protonix) 40 mg DAILYAC PO Last administered on 08/30/19at 08:40; Start 08/27/19 at 12:30 Influenza Virus Vaccine Quadrival (Afluria Quad 2019-20 (3yr Up) Syringe) 0.5 ml ONCE ONCE VAX IM Last administered on 08/27/19at 20:37; Start 08/27/19 at 21:00; Stop 08/27/19 at 21:01; Status DC Famotidine (Pepcid) 20 mg BID PO Last administered on 08/30/19 08:41; Start 08/28/19 at 21:00 Ferrous Sulfate (Feosol) 325 mg DAILYWBKFT PO Last administered on 08/30/19 08:41; Start 08/28/19 at 15:00 Folic Acid (Folic Acid) 1 mg DAILY PO Last administered on 08/30/19 08:42; Start 08/28/19 at 15:00 Haloperidol (Haldol) 5 mg BID PO Last administered on 08/30/19 08:41; Start 08/28/19 at 15:00 Olanzapine (ZyPREXA) 5 mg QHS PO Last administered on 08/29/19 21:20; Start 08/28/19 at 21:00 Prazosin HCl (Minipress) 1 mg QHS PO Last administered on 08/29/19 21:21; Start 08/28/19 at 21:00 Sertraline HCl (Zoloft) 50 mg DAILY PO Last administered on 08/30/19 08:41; Start 08/28/19 at 15:00 Trazodone HCl (Desyrel) 100 mg QHS PO Last administered on 08/28/19 20:08; Start 08/28/19 at 21:00; Stop 08/29/19 at 10:53; Status DC Multivitamins (Thera M Plus) 1 tab DAILY PO Last administered on 08/30/19 08:42; Start 08/28/19 at 15:00 Thiamine Mononitrate (Vitamin B-1) 100 mg DAILY PO Last administered on 08/30/19 08:41; Start 08/28/19 at 15:00 Albuterol/ Ipratropium (Duoneb) 3 ml RTQID NEB Last administered on 08/30/19 07:24; Start 08/29/19 at 08:00 Potassium Chloride (Klor-Con) 40 meq 1X ONCE PO Last administered on 08/29/19 10:07; Start 08/29/19 at 09:30; Stop 08/29/19 at 09:31; Status DC Magnesium Sulfate 50 ml @ 25 mls/hr 1X ONCE IV Last administered on 08/29/19at 10:08; Start 08/29/19 at 10:00; Stop 08/29/19 at 11:59; Status DC Oxycodone/ Acetaminophen (Percocet 5/325) 1 tab PRN Q4HRS PRN PO PAIN; Start 08/29/19 at 09:30; Stop 08/29/19 at 10:53; Status DC Potassium Chloride (Klor-Con) 20 meq 1X ONCE PO Last administered on 08/29/19at 10:05; Start 08/29/19 at 09:30; Stop 08/29/19 at 09:31; Status DC Trazodone HCl (Desyrel) 50 mg QHS PO Last administered on 08/29/19at 21:21; Start 08/29/19 at 11:00 Hydroxyzine HCl (Atarax) 75 mg TID PO Last administered on 08/30/19 08:42; Start 08/29/19 at 14:00 Lorazepam (Ativan) 0.5 mg TID PO Last administered on 08/30/19 08:43; Start 08/29/19 at 14:00 Gabapentin (Neurontin) 600 mg TID PO Last administered on 08/30/19 08:43; Start 08/29/19 at 14:00 Oxycodone HCl (Roxicodone) 5 mg PRN Q6HRS PRN PO PAIN Last administered on 08/30/19 03:28; Start 08/29/19 at 11:00 Active Scripts Active Lorazepam 0.5 Mg Tablet 1 Tab PO TID 7 Days Oxycodone Hcl 5 Mg Capsule 5 Mg PO PRN Q6HRS PRN 10 Days Multivitamins (Multivitamin) 1 Each Tablet 1 Tab PO DAILY Folic Acid 1 Mg Tablet 1 Tab PO DAILY Vitamin B-1 (Thiamine Hcl) 100 Mg Tablet 100 Mg PO DAILY 30 Days Famotidine 20 Mg Tablet 20 Mg PO BID 30 Days Feosol (Ferrous Sulfate) 325 Mg Tablet 325 Mg PO DAILYWBKFT 30 Days Reported Gabapentin 600 Mg Tablet 600 Mg PO TID Haloperidol 5 Mg Tablet 1 Tab PO BID Zyprexa (Olanzapine) 5 Mg Tablet 1 Tab PO QHS Prazosin Hcl 1 Mg Capsule 1 Cap PO QHS Trazodone Hcl 100 Mg Tablet 1 Tab PO QHS Hydroxyzine Hcl 25 Mg Tablet 3 Tab PO TID Zoloft (Sertraline Hcl) 50 Mg Tablet 1 Tab PO DAILY Vitals/I & O Vital Sign - Last 24 Hours 08/29/19 08/29/19 08/29/19 08/29/19 10:01 11:00 11:45 14:19 Pulse 82 Resp 16 17 18 B/P (MAP) 116/60 (78) Pulse Ox 93 92 92 92 O2 Delivery Room Air Room Air Room Air Room Air O2 Flow Rate 2.0 2.0 08/29/19 08/29/19 08/29/19 08/29/19 15:00 15:19 19:00 20:15 Temp 98.5 98.5 Pulse 66 73 Resp 18 20 18 B/P (MAP) 125/79 (94) 143/88 (106) Pulse Ox 91 95 93 O2 Delivery Room Air Room Air Room Air Room Air O2 Flow Rate 2.0 08/29/19 08/29/19 08/29/19 08/29/19 21:21 21:22 22:30 23:00 Pulse 73 B/P (MAP) 143/88 O2 Delivery Room Air Room Air Room Air 08/30/19 08/30/19 08/30/19 08/30/19 03:00 03:28 04:31 07:08 Temp 98.3 98.1 98.3 98.1 Pulse 73 74 Resp 14 B/P (MAP) 138/73 (94) 129/83 (98) Pulse Ox 93 92 O2 Delivery Room Air Room Air Room Air Room Air O2 Flow Rate 2.0 08/30/19 07:26 Pulse Ox 92 O2 Delivery Room Air Intake and Output 08/29/19 08/29/19 08/30/19 14:59 22:59 06:59 Intake Total 60 ml Balance 60 ml BENJIE CHANEL MD Aug 30, 2019 08:55
--- NOTE | 2019-08-30 10:16 | NUR ---
Symone following pt. Lalitha from PAT team will see pt today. Will continue to follow.
--- NOTE | 2019-08-30 11:04 | PDOC ---
Subjective: Subjective: Pain not controlled, upset pain meds were lowered. Says he has Percocet Rx at home that he hasn't filled yet. Wants a scope - "because I think I need it, that's why" - again reports bleeding (now saying bled in ICU and also mentions nosebleed "dripping down my fox"). Ate eggs for breakfast. Objective: Vital Signs: Vital Signs Date Time Temp Pulse Resp B/P (MAP) Pulse Ox O2 Delivery O2 Flow Rate FiO2 08/30/19 09:58 20 Room Air 08/30/19 07:26 92 08/30/19 07:08 98.1 74 129/83 (98) 98.1 08/30/19 03:00 2.0 Labs: Laboratory Tests Test 08/29/19 12:14 08/30/19 05:30 Potassium Level 3.7 mmol/L 3.5 mmol/L Magnesium Level 2.1 mg/dL White Blood Count 2.6 x10^3/uL Red Blood Count 3.61 x10^6/uL Hemoglobin 12.5 g/dL Hematocrit 37.5 % Mean Corpuscular Volume 104 fL Mean Corpuscular Hemoglobin 35 pg Mean Corpuscular Hemoglobin Concent 33 g/dL Red Cell Distribution Width 16.6 % Platelet Count 66 x10^3/uL Neutrophils (%) (Auto) 52 % Lymphocytes (%) (Auto) 34 % Monocytes (%) (Auto) 11 % Eosinophils (%) (Auto) 2 % Basophils (%) (Auto) 1 % Neutrophils # (Auto) 1.4 x10^3/uL Lymphocytes # (Auto) 0.9 x10^3/uL Monocytes # (Auto) 0.3 x10^3/uL Eosinophils # (Auto) 0.0 x10^3/uL Basophils # (Auto) 0.0 x10^3/uL Sodium Level 144 mmol/L Chloride Level 109 mmol/L Carbon Dioxide Level 28 mmol/L Anion Gap 7 Blood Urea Nitrogen 4 mg/dL Creatinine 0.8 mg/dL Estimated GFR (Cockcroft-Gault) 114.3 Glucose Level 90 mg/dL Calcium Level 8.7 mg/dL Imaging: CXR 08/27 IMPRESSION: Notable decrease in retrocardiac left basilar atelectasis. PE: GEN: NAD - sitting up in bed, looks better - has 1:1 obs LUNGS: room air NEURO/PSYCH: A & O 3 - much more awake compared to last week A/P: Intentional drug overdose, alcohol abuse Cirrhosis w/ esophageal varices, portal hypertensive gastropathy, AAT MZ phenotype - EGD in -- As with every visit, explained that he does not need an EGD. Continue PPI. DC per primary. JANET STEWART Aug 30, 2019 11:04
[2019-08-30 11:10] VITALS: BP 138/93
[2019-08-30 11:13] LABS: ALBUMIN 2.7 g/dL (3.4-5.0); DIRECT BILIRUBIN 2.4 mg/dL (0.0-0.2); TOTAL BILIRUBIN 3.2 mg/dL (0.2-1.0); TOTAL PROTEIN 6.1 g/dL (6.4-8.2)
[2019-08-30] MEDS ORDERED: POTASSIUM CHLORIDE 20 MEQ TABLET.ER. PO ONE (11:30)
[2019-08-30] MEDS: KETOROLAC 30 MG/ML VIAL. IV PRN ×2 (11:37→17:51)
--- NOTE | 2019-08-30 12:03 | PDOC ---
PULMONARY PROGRESS NOTES Subjective extubated 08/25 off o2, has cough Vitals Vital Signs Date Time Temp Pulse Resp B/P (MAP) Pulse Ox O2 Delivery O2 Flow Rate FiO2 08/30/19 11:10 98.8 89 18 138/93 (108) 92 Room Air 98.8 08/30/19 10:58 2.0 General: Alert, No acute distress Lungs: Clear Cardiovascular: S1, S2 Abdomen: Soft, Non-tender Neuro Exam: Alert, Oriented Extremities: Other (2+edema) Skin: Warm Labs Laboratory Tests Test 08/29/19 12:14 08/30/19 05:30 Potassium Level 3.7 mmol/L (3.5-5.1) 3.5 mmol/L (3.5-5.1) Magnesium Level 2.1 mg/dL (1.8-2.4) White Blood Count 2.6 x10^3/uL (4.0-11.0) Red Blood Count 3.61 x10^6/uL (4.30-5.70) Hemoglobin 12.5 g/dL (13.0-17.5) Hematocrit 37.5 % (39.0-53.0) Mean Corpuscular Volume 104 fL (79-100) Mean Corpuscular Hemoglobin 35 pg (25-35) Mean Corpuscular Hemoglobin Concent 33 g/dL (31-37) Red Cell Distribution Width 16.6 % (11.5-14.5) Platelet Count 66 x10^3/uL (140-400) Neutrophils (%) (Auto) 52 % (31-73) Lymphocytes (%) (Auto) 34 % (24-48) Monocytes (%) (Auto) 11 % (0-9) Eosinophils (%) (Auto) 2 % (0-3) Basophils (%) (Auto) 1 % (0-3) Neutrophils # (Auto) 1.4 x10^3/uL (1.8-7.7) Lymphocytes # (Auto) 0.9 x10^3/uL (1.0-4.8) Monocytes # (Auto) 0.3 x10^3/uL (0.0-1.1) Eosinophils # (Auto) 0.0 x10^3/uL (0.0-0.7) Basophils # (Auto) 0.0 x10^3/uL (0.0-0.2) Sodium Level 144 mmol/L (136-145) Chloride Level 109 mmol/L (98-107) Carbon Dioxide Level 28 mmol/L (21-32) Anion Gap 7 (6-14) Blood Urea Nitrogen 4 mg/dL (8-26) Creatinine 0.8 mg/dL (0.7-1.3) Estimated GFR (Cockcroft-Gault) 114.3 Glucose Level 90 mg/dL (70-99) Calcium Level 8.7 mg/dL (8.5-10.1) Total Bilirubin 3.2 mg/dL (0.2-1.0) Direct Bilirubin 2.4 mg/dL (0.0-0.2) Aspartate Amino Transf (AST/SGOT) 171 U/L (15-37) Alanine Aminotransferase (ALT/SGPT) 72 U/L (16-63) Alkaline Phosphatase 214 U/L (46-116) Total Protein 6.1 g/dL (6.4-8.2) Albumin 2.7 g/dL (3.4-5.0) Laboratory Tests Test 08/29/19 12:14 08/30/19 05:30 Potassium Level 3.7 mmol/L (3.5-5.1) 3.5 mmol/L (3.5-5.1) Magnesium Level 2.1 mg/dL (1.8-2.4) White Blood Count 2.6 x10^3/uL (4.0-11.0) Red Blood Count 3.61 x10^6/uL (4.30-5.70) Hemoglobin 12.5 g/dL (13.0-17.5) Hematocrit 37.5 % (39.0-53.0) Mean Corpuscular Volume 104 fL (79-100) Mean Corpuscular Hemoglobin 35 pg (25-35) Mean Corpuscular Hemoglobin Concent 33 g/dL (31-37) Red Cell Distribution Width 16.6 % (11.5-14.5) Platelet Count 66 x10^3/uL (140-400) Neutrophils (%) (Auto) 52 % (31-73) Lymphocytes (%) (Auto) 34 % (24-48) Monocytes (%) (Auto) 11 % (0-9) Eosinophils (%) (Auto) 2 % (0-3) Basophils (%) (Auto) 1 % (0-3) Neutrophils # (Auto) 1.4 x10^3/uL (1.8-7.7) Lymphocytes # (Auto) 0.9 x10^3/uL (1.0-4.8) Monocytes # (Auto) 0.3 x10^3/uL (0.0-1.1) Eosinophils # (Auto) 0.0 x10^3/uL (0.0-0.7) Basophils # (Auto) 0.0 x10^3/uL (0.0-0.2) Sodium Level 144 mmol/L (136-145) Chloride Level 109 mmol/L (98-107) Carbon Dioxide Level 28 mmol/L (21-32) Anion Gap 7 (6-14) Blood Urea Nitrogen 4 mg/dL (8-26) Creatinine 0.8 mg/dL (0.7-1.3) Estimated GFR (Cockcroft-Gault) 114.3 Glucose Level 90 mg/dL (70-99) Calcium Level 8.7 mg/dL (8.5-10.1) Total Bilirubin 3.2 mg/dL (0.2-1.0) Direct Bilirubin 2.4 mg/dL (0.0-0.2) Aspartate Amino Transf (AST/SGOT) 171 U/L (15-37) Alanine Aminotransferase (ALT/SGPT) 72 U/L (16-63) Alkaline Phosphatase 214 U/L (46-116) Total Protein 6.1 g/dL (6.4-8.2) Albumin 2.7 g/dL (3.4-5.0) Medications Active Scripts Medications Dose Route/Sig Max Daily Dose Days Date Category Gabapentin 600 Mg Tablet 600 Mg PO TID 08/21/19 Reported Haloperidol 5 Mg Tablet 1 Tab PO BID 08/20/19 Reported Zyprexa (Olanzapine) 5 Mg Tablet 1 Tab PO QHS 08/20/19 Reported Prazosin Hcl 1 Mg Capsule 1 Cap PO QHS 08/18/19 Reported Trazodone Hcl 100 Mg Tablet 1 Tab PO QHS 08/18/19 Reported Hydroxyzine Hcl 25 Mg Tablet 3 Tab PO TID 08/18/19 Reported Zoloft (Sertraline Hcl) 50 Mg Tablet 1 Tab PO DAILY 9/18/19 Reported Lorazepam 0.5 Mg Tablet 1 Tab PO TID 7 07/07/19 Rx Oxycodone Hcl 5 Mg Capsule 5 Mg PO PRN Q6HRS PRN 10 07/07/19 Rx Multivitamins (Multivitamin) 1 Each Tablet 1 Tab PO DAILY 07/07/19 Rx Folic Acid 1 Mg Tablet 1 Tab PO DAILY 07/07/19 Rx Vitamin B-1 (Thiamine Hcl) 100 Mg Tablet 100 Mg PO DAILY 30 07/07/19 Rx Famotidine 20 Mg Tablet 20 Mg PO BID 30 06/24/17 Rx Feosol (Ferrous Sulfate) 325 Mg Tablet 325 Mg PO DAILYWBKFT 30 06/24/17 Rx Comments reviewed cxr 08/27 Notable decrease in retrocardiac left basilar atelectasis. Impression . 1. Acute respiratory failure secondary to acute toxic and metabolic encephalopathy. resolved, extubated 08/25 2. Acute drug ingestion with gabapentin and Zoloft. 3. Abnormal chest x-ray with poor inspiratory effort./ LLL atelectasis, mild CHF 4. Alcoholic liver disease with possible acute alcoholic hepatitis with increased bilirubin. 5. History of schizophrenia. 6. History of prior suicidal attempts. Plan . 1. off O2 2. oral nutrition 3 ok with dc to psych facility will sign off ANEESH BRONSON MD Aug 30, 2019 12:03
--- NOTE | 2019-08-30 12:55 | NUR ---
Referral for [facility] psych sent to [facility]. Pt acceptance/admission pending. Will continue to follow.
[2019-08-30 15:30] VITALS: BP 104/68
--- NOTE | 2019-08-30 15:59 | EKG ---
[facility] [address] [place] [address] Test Date: 2019-08-30 Test Time: 15:49:18 Pat Name: DENISHA MCFARLAND Department: Room: [facility] 1 Gender: M Tariff Clerk: : 1990 Requested By: BENJIE CHANEL Order Number: [id number] Reading MD: Jarrell Newton MD Measurements Intervals [place] Rate: 73 P: 29 CT: 146 QRS: 28 QRSD: 96 T: 26 QT: 334 QTc: 371 Interpretive Statements SINUS RHYTHM Electronically Signed On 09-08-2019 9:18:55 CDT by Jarrell Newton MD
--- NOTE | 2019-08-30 18:26 | NUR ---
Patient did have oxygen saturation level of 92% due to inactivity and drowsiness, after walking with therapy and using Incentive Spirometer, patient's oxygen saturation increased to 96%.
[2019-08-30 18:59] VITALS: BP 116/71
--- NOTE | 2019-08-30 19:15 | NUR ---
Lalitha from [facility] called to inform staff that Dr. Beckwith declined acceptance for this patient due to Oxygen saturation being low and unstable and being ordered nebulizer treatments. Facility rep stated that they would be willing to re-screen patient once stable. Informed oncoming nurse, Niecy and attempted to call Lalitha from PAT team.
[2019-08-30] MEDS: traZODone 50 MG TABLET. PO SCH (21:49)
[2019-08-30] MEDS: OLANZapine 5 MG TABLET PO SCH (21:50)
[2019-08-30] MEDS: PRAZOSIN 1 MG CAPSULE. PO SCH (21:51)
[2019-08-30 22:21] LABS: BARBITURATES NEG (NEG); BENZODIAZEPINES POS (NEG); CANNABINOIDS NEG (NEG); COCAINE NEG (NEG); METHADONE NEG (NEG); OPIATES POS (NEG); PHENCYCLIDINE NEG (NEG)
[2019-08-30 22:29] LABS: AMPHETAMINE/METHAMPHETAMINE NEG (NEG)
[2019-08-30 22:59] VITALS: BP 136/77
[2019-08-31] MEDS: KETOROLAC 30 MG/ML VIAL. IV PRN ×4 (00:57→18:58)
[2019-08-31] MEDS: CYCLOBENZAPRINE 10 MG TABLET. PO PRN ×3 (02:01→20:37)
[2019-08-31 03:00] VITALS: BP 126/72
[2019-08-31] MEDS: oxyCODONE IR 5 MG TABLET PO PRN ×3 (05:57→18:58)
[2019-08-31 07:00] VITALS: BP 143/93
[2019-08-31] MEDS: IPRATRPIUM/ALBUTEROL 0.5/2.5MG 3 ML NEBU. NEB SCH (08:05)
[2019-08-31] MEDS: LORazepam 0.5 MG TABLET PO SCH ×3 (08:14→20:37)
[2019-08-31] MEDS: MULTIVITAMIN with MINERAL TABLET. PO SCH (08:14)
[2019-08-31] MEDS: FERROUS SULFATE 325 MG TABLET. PO SCH (08:15)
[2019-08-31] MEDS: THIAMINE 100 MG TABLET. PO SCH (08:15)
[2019-08-31] MEDS: FOLIC ACID 1 MG TABLET. PO SCH (08:15)
[2019-08-31] MEDS: GABAPENTIN 300 MG CAPSULE. PO SCH ×3 (08:15→20:37)
[2019-08-31] MEDS: HALOPERIDOL 5 MG TABLET. PO SCH ×2 (08:15→20:37)
[2019-08-31] MEDS: hydrOXYzine 25 MG TABLET PO SCH (08:15)
[2019-08-31] MEDS: SERTRALINE 50 MG TABLET. PO SCH (08:16)
[2019-08-31] MEDS ORDERED: hydrOXYzine 25 MG TABLET PO PRN (08:30)
--- NOTE | 2019-08-31 08:34 | PDOC ---
PROGRESS NOTES Chief Complaint Chief Complaint EtOH abuse - with acute intoxication on admission Suicide attempt - waiting for psych bed Chronic pain Hypomagnesemia Hypokalemia LEg pains poss neuropathy Concentrated urine resolved Pancytopenia - likely from heavy ETOH use, possibly from medications as well. Unknown hep c and HIV status Acute respiratory failure secondary to acute toxic and metabolic encephalopathy - resolved, extubated 08/25 History of Present Illness History of Present Illness Mr Dsouza is a 29-year-old male who has history of schizophrenia, history of previous suicidal attempts, history of alcohol abuse, DJD, and h/o alpha-1 antitrypsin deficiency. He was brought into the hospital after he took a handful of gabapentin and Zoloft. Exact quantity is unknown. He was intubated in the Emergency Room and extubated on 08/25/19. Seen by pulmonary/critical care in consultation. 08/29: Asking for more pain meds when he is on a lot and actually very sleepy, Sitter at bedside bec of SI. Slated for psych bed but had some medical issues over the weekend and also no bed avail. K and mag low on friday (not addressed) 08/31: Off O2 overnight. Cough improved. This morning he is sleeping. Upon awakening him he is stating his has acute on chronic bandlike abdominal pain, is requesting an EGD from GI and for me to add back IV fentanyl and increase his oxycodone dosing. Added flexeril and physical therapy. When asked what he does at home for pain he tells me he drinks alcohol until the pain goes away and he passes out. I have advised him I am worried about unintentional overdose from polypharmacy and in response he states, "So I should use a knife when I go home?" I ask if he is still suicidal and he tells me after talking with me he is still suicidal today and would attempt suicide to make it "quicker" next time. He is asking for pain medication to help him sleep. After I left the room he has asked his - sitter to contact the PAT team so that he can go home. Pain is better controlled today. LFTs improved. Potassium normalized. Nebulizer treatments stopped. He was ambulating with PT with no difficulties. No SOB or CP. He tells me if he were to leave today he would go drink alcohol heavily. PLAN: Oral pain medications Ok for IV toradol 30mg x1, easy transition to ibuprofen oral later today Resume home gabapentin CANCEL CIWA ATIVAN IV or PO Replace K - oral today, is normalizing Hopefully psych bed with normalized labs He is medically cleared for d/c now Vitals Vitals Vital Signs Date Time Temp Pulse Resp B/P (MAP) Pulse Ox O2 Delivery O2 Flow Rate FiO2 08/31/19 08:06 94 Room Air 08/31/19 07:00 97.9 74 19 143/93 (110) 97.9 08/31/19 05:57 2.0 Physical Exam General: Alert, Oriented X3, Cooperative, mild distress, Other (anxious) Heart: Regular rate, Normal S1 Lungs: Clear Abdomen: Normal bowel sounds Extremities: No clubbing, No cyanosis Skin: No rashes, No significant lesion Labs LABS Laboratory Tests Test 08/30/19 22:00 Urine Opiates Screen Pos (NEG) Urine Methadone Screen Neg (NEG) Urine Barbiturates Neg (NEG) Urine Phencyclidine Screen Neg (NEG) Urine Amphetamine/Methamphetamine Neg (NEG) Urine Benzodiazepines Screen Pos (NEG) Urine Cocaine Screen Neg (NEG) Urine Cannabinoids Screen Neg (NEG) Urine Ethyl Alcohol Neg (NEG) Assessment and Plan Assessmemt and Plan Problems Medical Problems: (1) Aggressive behavior Status: Acute (2) Alcohol intoxication Status: Acute (3) 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 Labs Laboratory Tests Test 08/29/19 12:14 08/30/19 05:30 08/30/19 22:00 Potassium Level 3.7 mmol/L (3.5-5.1) 3.5 mmol/L (3.5-5.1) Magnesium Level 2.1 mg/dL (1.8-2.4) White Blood Count 2.6 x10^3/uL (4.0-11.0) Red Blood Count 3.61 x10^6/uL (4.30-5.70) Hemoglobin 12.5 g/dL (13.0-17.5) Hematocrit 37.5 % (39.0-53.0) Mean Corpuscular Volume 104 fL (79-100) Mean Corpuscular Hemoglobin 35 pg (25-35) Mean Corpuscular Hemoglobin Concent 33 g/dL (31-37) Red Cell Distribution Width 16.6 % (11.5-14.5) Platelet Count 66 x10^3/uL (140-400) Neutrophils (%) (Auto) 52 % (31-73) Lymphocytes (%) (Auto) 34 % (24-48) Monocytes (%) (Auto) 11 % (0-9) Eosinophils (%) (Auto) 2 % (0-3) Basophils (%) (Auto) 1 % (0-3) Neutrophils # (Auto) 1.4 x10^3/uL (1.8-7.7) Lymphocytes # (Auto) 0.9 x10^3/uL (1.0-4.8) Monocytes # (Auto) 0.3 x10^3/uL (0.0-1.1) Eosinophils # (Auto) 0.0 x10^3/uL (0.0-0.7) Basophils # (Auto) 0.0 x10^3/uL (0.0-0.2) Sodium Level 144 mmol/L (136-145) Chloride Level 109 mmol/L (98-107) Carbon Dioxide Level 28 mmol/L (21-32) Anion Gap 7 (6-14) Blood Urea Nitrogen 4 mg/dL (8-26) Creatinine 0.8 mg/dL (0.7-1.3) Estimated GFR (Cockcroft-Gault) 114.3 Glucose Level 90 mg/dL (70-99) Calcium Level 8.7 mg/dL (8.5-10.1) Total Bilirubin 3.2 mg/dL (0.2-1.0) Direct Bilirubin 2.4 mg/dL (0.0-0.2) Aspartate Amino Transf (AST/SGOT) 171 U/L (15-37) Alanine Aminotransferase (ALT/SGPT) 72 U/L (16-63) Alkaline Phosphatase 214 U/L (46-116) Total Protein 6.1 g/dL (6.4-8.2) Albumin 2.7 g/dL (3.4-5.0) Urine Opiates Screen Pos (NEG) Urine Methadone Screen Neg (NEG) Urine Barbiturates Neg (NEG) Urine Phencyclidine Screen Neg (NEG) Urine Amphetamine/Methamphetamine Neg (NEG) Urine Benzodiazepines Screen Pos (NEG) Urine Cocaine Screen Neg (NEG) Urine Cannabinoids Screen Neg (NEG) Urine Ethyl Alcohol Neg (NEG) Laboratory Tests Test 08/30/19 22:00 Urine Opiates Screen Pos (NEG) Urine Methadone Screen Neg (NEG) Urine Barbiturates Neg (NEG) Urine Phencyclidine Screen Neg (NEG) Urine Amphetamine/Methamphetamine Neg (NEG) Urine Benzodiazepines Screen Pos (NEG) Urine Cocaine Screen Neg (NEG) Urine Cannabinoids Screen Neg (NEG) Urine Ethyl Alcohol Neg (NEG) Microbiology 08/24/19 Urine Culture - Final, Complete 08/24/19 Urine Culture Result 1 (ERICK) - Final, Complete Medications Current Medications Succinylcholine Chloride (Anectine) 200 mg STK-MED ONCE .ROUTE ; Start 08/24/19 at 00:11; Stop 08/24/19 at 00:12; Status DC Propofol 100 ml @ 0 mls/hr CONT PRN IV SEE PROTOCOL Last administered on 08/25/19at 09:16; Start 08/24/19 at 00:30; Stop 08/25/19 at 20:09; Status DC Fentanyl Citrate (Fentanyl 2ml Vial) 50 mcg PRN Q1HR PRN IV SEE COMMENTS Last administered on 08/25/19at 05:00; Start 08/24/19 at 00:30; Stop 08/25/19 at 20:09; Status DC Chlorhexidine Gluconate (Peridex) 15 ml BID MM Last administered on 08/25/19at 07:42; Start 08/24/19 at 09:00; Stop 08/25/19 at 19:18; Status DC Morphine Sulfate (Morphine Sulfate) 2 mg PRN Q1HR PRN IV SEE COMMENTS. Last administered on 08/24/19at 20:32; Start 08/24/19 at 00:30; Stop 08/25/19 at 20:09; Status DC Midazolam HCl (Versed) 1 mg PRN Q30MIN PRN IV SEE COMMENTS. Last administered on 08/24/19at 20:32; Start 08/24/19 at 00:30; Stop 08/25/19 at 20:09; Status DC Propofol 50 ml @ As Directed STK-MED ONCE IV ; Start 08/24/19 at 00:21; Stop 08/24/19 at 00:22; Status DC Etomidate (Amidate) 20 mg STK-MED ONCE IV ; Start 08/24/19 at 01:02; Stop 08/24/19 at 01:02; Status DC Etomidate (Amidate) 20 mg 1X ONCE IV Last administered on 08/24/19at 02:09; Start 08/24/19 at 01:45; Stop 08/24/19 at 01:46; Status DC Succinylcholine Chloride (Anectine) 100 mg 1X ONCE IV Last administered on 08/24/19at 02:09; Start 08/24/19 at 01:45; Stop 08/24/19 at 01:46; Status DC Propofol 50 ml @ As Directed STK-MED ONCE IV ; Start 08/24/19 at 02:17; Stop 08/24/19 at 02:18; Status DC Ondansetron HCl (Zofran) 4 mg PRN Q8HRS PRN IV NAUSEA/VOMITING; Start 08/24/19 at 02:30; Stop 08/25/19 at 02:29; Status DC Albuterol/ Ipratropium (Duoneb) 3 ml RTQID NEB Last administered on 08/24/19at 19:55; Start 08/24/19 at 08:00; Stop 08/25/19 at 07:59; Status DC Sodium Chloride 1,000 ml @ 1,000 mls/hr 1X ONCE IV Last administered on 08/24/19at 04:30; Start 08/24/19 at 03:30; Stop 08/24/19 at 04:29; Status DC Sodium Chloride 1,000 ml @ 100 mls/hr Q10H IV Last administered on 08/26/19at 06:20; Start 08/24/19 at 04:30; Stop 08/26/19 at 11:39; Status DC Dextrose (Dextrose 50%-Water Syringe) 25 gm STK-MED ONCE IV ; Start 08/24/19 at 11:31; Stop 08/24/19 at 11:32; Status DC Pantoprazole Sodium (PROTONIX VIAL for IV PUSH) 40 mg DAILYAC IVP Last administered on 08/27/19at 08:10; Start 08/24/19 at 13:00; Stop 08/27/19 at 08:36; Status DC Midazolam HCl 100 ml @ 5 mls/hr CONT PRN IV SEE I/O RECORD Last administered on 08/24/19at 21:26; Start 08/24/19 at 21:15; Stop 08/25/19 at 20:12; Status DC Dexmedetomidine HCl 400 mcg/ Sodium Chloride 100 ml @ 0 mls/hr CONT PRN IV ANXIETY / AGITATION Last administered on 08/25/19at 10:56; Start 08/25/19 at 10:30; Stop 08/25/19 at 20:12; Status DC Sodium Chloride 500 ml @ 500 mls/hr 1X PRN PRN IV PER PROTOCOL; Start 08/25/19 at 10:30; Stop 08/25/19 at 20:12; Status DC Atropine Sulfate (ATROPINE 0.5mg SYRINGE) 0.5 mg PRN Q5MIN PRN IV SEE COMMENTS; Start 08/25/19 at 10:30; Stop 08/25/19 at 20:12; Status DC Lorazepam (Ativan Inj) 0.5 mg 1X ONCE IV Last administered on 08/25/19at 17:05; Start 08/25/19 at 16:45; Stop 08/25/19 at 16:46; Status DC Lorazepam (Ativan) 4 mg PRN Q1HR PRN PO For CIWA 8-14; Start 08/25/19 at 18:00; Stop 08/29/19 at 10:53; Status DC Lorazepam (Ativan) 8 mg PRN Q1HR PRN PO For CIWA 15 or greater; Start 08/25/19 at 18:00; Stop 08/29/19 at 10:53; Status DC Lorazepam (Ativan Inj) 2 mg PRN Q1HR PRN IV For CIWA 8-14 Last administered on 08/29/19at 10:04; Start 08/25/19 at 18:00; Stop 08/29/19 at 10:53; Status DC Lorazepam (Ativan Inj) 4 mg PRN Q1HR PRN IV For CIWA 15 or greater Last administered on 08/28/19at 15:41; Start 08/25/19 at 18:00; Stop 08/29/19 at 10:53; Status DC Morphine Sulfate (Morphine Sulfate) 2 mg PRN Q2HR PRN IV MILD PAIN 1-3 Last administered on 08/28/19at 17:15; Start 08/25/19 at 20:30; Stop 08/29/19 at 10:53; Status DC Fentanyl Citrate (Fentanyl 2ml Vial) 75 mcg Q4HRS PRN IV MOD TO SEVERE PAIN Last administered on 08/29/19at 10:01; Start 08/26/19 at 10:30; Stop 08/29/19 at 10:53; Status DC Furosemide (Lasix) 40 mg 1X ONCE IVP Last administered on 08/26/19at 11:36; Start 08/26/19 at 11:00; Stop 08/26/19 at 11:01; Status DC Magnesium Sulfate 50 ml @ 25 mls/hr 1X ONCE IV ; Start 08/26/19 at 11:45; Stop 08/26/19 at 13:44; Status UNV Magnesium Sulfate 50 ml @ 25 mls/hr 1X ONCE IV Last administered on 08/26/19at 13:08; Start 08/26/19 at 11:45; Stop 08/26/19 at 13:44; Status DC Magnesium Sulfate 50 ml @ 25 mls/hr 1X ONCE IV Last administered on 08/27/19at 11:05; Start 08/27/19 at 08:45; Stop 08/27/19 at 10:44; Status DC Sodium Chloride 1,000 ml @ 100 mls/hr Q10H IV ; Start 08/27/19 at 11:15; Stop 08/27/19 at 11:26; Status DC Pantoprazole Sodium (Protonix) 40 mg DAILYAC PO Last administered on 08/30/19at 08:40; Start 08/27/19 at 12:30 Influenza Virus Vaccine Quadrival (Afluria Quad 2019-20 (3yr Up) Syringe) 0.5 ml ONCE ONCE VAX IM Last administered on 08/27/19at 20:37; Start 08/27/19 at 21:00; Stop 08/27/19 at 21:01; Status DC Famotidine (Pepcid) 20 mg BID PO Last administered on 08/30/19 08:41; Start 08/28/19 at 21:00; Stop 08/30/19 at 11:01; Status DC Ferrous Sulfate (Feosol) 325 mg DAILYWBKFT PO Last administered on 08/31/19at 08:15; Start 08/28/19 at 15:00 Folic Acid (Folic Acid) 1 mg DAILY PO Last administered on 08/31/19at 08:15; Start 08/28/19 at 15:00 Haloperidol (Haldol) 5 mg BID PO Last administered on 08/31/19 08:15; Start 08/28/19 at 15:00 Olanzapine (ZyPREXA) 5 mg QHS PO Last administered on 08/30/19 21:50; Start 08/28/19 at 21:00 Prazosin HCl (Minipress) 1 mg QHS PO Last administered on 08/30/19 21:51; Start 08/28/19 at 21:00 Sertraline HCl (Zoloft) 50 mg DAILY PO Last administered on 08/31/19 08:16; S tart 08/28/19 at 15:00 Trazodone HCl (Desyrel) 100 mg QHS PO Last administered on 08/28/19 20:08; Start 08/28/19 at 21:00; Stop 08/29/19 at 10:53; Status DC Multivitamins (Thera M Plus) 1 tab DAILY PO Last administered on 08/31/19 08:14; Start 08/28/19 at 15:00 Thiamine Mononitrate (Vitamin B-1) 100 mg DAILY PO Last administered on 08/31/19 08:15; Start 08/28/19 at 15:00 Albuterol/ Ipratropium (Duoneb) 3 ml RTQID NEB Last administered on 08/31/19 08:05; Start 08/29/19 at 08:00 Potassium Chloride (Klor-Con) 40 meq 1X ONCE PO Last administered on 08/29/19 10:07; Start 08/29/19 at 09:30; Stop 08/29/19 at 09:31; Status DC Magnesium Sulfate 50 ml @ 25 mls/hr 1X ONCE IV Last administered on 08/29/19 10:08; Start 08/29/19 at 10:00; Stop 08/29/19 at 11:59; Status DC Oxycodone/ Acetaminophen (Percocet 5/325) 1 tab PRN Q4HRS PRN PO PAIN; Start 08/29/19 at 09:30; Stop 08/29/19 at 10:53; Status DC Potassium Chloride (Klor-Con) 20 meq 1X ONCE PO Last administered on 08/29/19at 10:05; Start 08/29/19 at 09:30; Stop 08/29/19 at 09:31; Status DC Trazodone HCl (Desyrel) 50 mg QHS PO Last administered on 08/30/19at 21:49; Start 08/29/19 at 11:00 Hydroxyzine HCl (Atarax) 75 mg TID PO Last administered on 08/31/19at 08:15; Start 08/29/19 at 14:00 Lorazepam (Ativan) 0.5 mg TID PO Last administered on 08/31/19at 08:14; Start 08/29/19 at 14:00 Gabapentin (Neurontin) 600 mg TID PO Last administered on 08/31/19at 08:15; Start 08/29/19 at 14:00 Oxycodone HCl (Roxicodone) 5 mg PRN Q6HRS PRN PO PAIN Last administered on 08/31/19at 05:57; Start 08/29/19 at 11:00 Potassium Chloride (Klor-Con) 40 meq 1X ONCE PO Last administered on 08/30/19at 11:38; Start 08/30/19 at 11:30; Stop 08/30/19 at 11:31; Status DC Ketorolac Tromethamine (Toradol 30mg Vial) 30 mg PRN Q6HRS PRN IV PAIN Last administered on 08/31/19at 06:54; Start 08/30/19 at 10:30; Stop 09/04/19 at 10:29 Cyclobenzaprine HCl (Flexeril) 5 mg PRN Q8HRS PRN PO MUSCLE SPASMS Last administered on 08/31/19at 02:01; Start 08/30/19 at 20:15 Active Scripts Active Lorazepam 0.5 Mg Tablet 1 Tab PO TID 7 Days Oxycodone Hcl 5 Mg Capsule 5 Mg PO PRN Q6HRS PRN 10 Days Multivitamins (Multivitamin) 1 Each Tablet 1 Tab PO DAILY Folic Acid 1 Mg Tablet 1 Tab PO DAILY Vitamin B-1 (Thiamine Hcl) 100 Mg Tablet 100 Mg PO DAILY 30 Days Famotidine 20 Mg Tablet 20 Mg PO BID 30 Days Feosol (Ferrous Sulfate) 325 Mg Tablet 325 Mg PO DAILYWBKFT 30 Days Reported Gabapentin 600 Mg Tablet 600 Mg PO TID Haloperidol 5 Mg Tablet 1 Tab PO BID Zyprexa (Olanzapine) 5 Mg Tablet 1 Tab PO QHS Prazosin Hcl 1 Mg Capsule 1 Cap PO QHS Trazodone Hcl 100 Mg Tablet 1 Tab PO QHS Hydroxyzine Hcl 25 Mg Tablet 3 Tab PO TID Zoloft (Sertraline Hcl) 50 Mg Tablet 1 Tab PO DAILY Vitals/I & O Vital Sign - Last 24 Hours 08/30/19 08/30/19 08/30/19 08/30/19 09:58 10:58 11:10 12:51 Temp 98.8 98.8 Pulse 89 Resp 20 18 18 B/P (MAP) 138/93 (108) Pulse Ox 92 92 91 O2 Delivery Room Air Room Air Room Air Room Air O2 Flow Rate 2.0 08/30/19 08/30/19 08/30/19 08/30/19 15:30 15:56 16:56 17:10 Temp 98.4 98.4 Pulse 74 Resp 16 20 18 B/P (MAP) 104/68 (80) Pulse Ox 96 91 91 O2 Delivery Room Air Room Air Room Air Room Air O2 Flow Rate 2.0 08/30/19 08/30/19 08/30/19 08/30/19 18:59 19:54 20:00 21:51 Temp 98.7 98.7 Pulse 84 84 Resp 14 B/P (MAP) 116/71 (86) 116/71 Pulse Ox 92 94 O2 Delivery Room Air Room Air Room Air 08/30/19 08/30/19 08/30/19 08/31/19 21:52 22:52 22:59 03:00 Temp 97.9 97.7 97.9 97.7 Pulse 73 69 Resp 20 18 16 16 B/P (MAP) 136/77 (96) 126/72 (90) Pulse Ox 94 96 94 96 O2 Delivery Room Air Room Air Room Air Room Air O2 Flow Rate 2.0 08/31/19 08/31/19 08/31/19 08/31/19 05:57 06:57 07:00 08:06 Temp 97.9 97.9 Pulse 74 Resp 20 18 19 B/P (MAP) 143/93 (110) Pulse Ox 96 93 93 94 O2 Delivery Room Air Room Air Room Air Room Air O2 Flow Rate 2.0 Intake and Output 08/30/19 08/30/19 08/31/19 15:00 23:00 07:00 Intake Total 480 ml 500 ml 360 ml Output Total 600 ml Balance 480 ml 500 ml -240 ml BENJIE CHANEL MD Aug 31, 2019 08:34
[2019-08-31 10:00] LABS: BASO % 2 % (0-3); EOS % 2 % (0-3); HEMATOCRIT 36.4 % (39.0-53.0); HEMOGLOBIN 12.2 g/dL (13.0-17.5); LYMPH # 0.7 x10^3/uL (1.0-4.8); LYMPH % 30 % (24-48); MEAN CORPUSCULAR HEMOGLOBIN 35 pg (25-35); MEAN CORPUSCULAR HGB CONC 34 g/dL (31-37); MEAN CORPUSCULAR VOLUME 103 fL (79-100); MONO # 0.2 x10^3/uL (0.0-1.1); MONO % 9 % (0-9); NEUT # 1.4 x10^3/uL (1.8-7.7); NEUT % 58 % (31-73); PLATELET COUNT 71 x10^3/uL (140-400); RED BLOOD COUNT 3.52 x10^6/uL (4.30-5.70); WHITE BLOOD COUNT 2.5 x10^3/uL (4.0-11.0)
[2019-08-31 10:13] LABS: ALBUMIN 2.6 g/dL (3.4-5.0); ALBUMIN/GLOBULIN RATIO 0.7 (1.0-1.7); CALCIUM 8.7 mg/dL (8.5-10.1); CREATININE 0.8 mg/dL (0.7-1.3); GFR 114.3; POTASSIUM 3.7 mmol/L (3.5-5.1); TOTAL BILIRUBIN 2.7 mg/dL (0.2-1.0); TOTAL PROTEIN 6.4 g/dL (6.4-8.2)
[2019-08-31 10:48] VITALS: BP 133/81
--- NOTE | 2019-08-31 11:02 | NUR ---
CARLOS following pt. Spoke with Saba at [facility], . Discussed pt's nebulizer tx was discontinued and pt has been sating between 91%-96% on room air. Saba states 91% is too low and CARLOS expressed pt has a wide range of 02 Sat's and is not even required to be on 02. CARLOS attempted to explain patients do not even qualify for home 02 if they do not desat below 88% but she reports 91% is too low for them. Saba has agreed to discuss this with admitting Physician but they do not have any beds available at this time. CARLOS spoke with Shira at [facility], and there are no beds available at this time. CARLOS left a message to [facility], requesting a call back. Will call all above facilities later again.
--- NOTE | 2019-08-31 11:05 | PDOC ---
Objective: Objective: No GI concerns per 1:1 Reviewed chart - inpt psych declined due to low O2 sats Vital Signs: Vital Signs Date Time Temp Pulse Resp B/P (MAP) Pulse Ox O2 Delivery O2 Flow Rate FiO2 08/31/19 10:48 97.8 81 19 133/81 (98) 91 Room Air 97.8 08/31/19 05:57 2.0 Labs: Laboratory Tests Test 08/30/19 22:00 08/31/19 09:50 Urine Opiates Screen Pos Urine Methadone Screen Neg Urine Barbiturates Neg Urine Phencyclidine Screen Neg Urine Amphetamine/Methamphetamine Neg Urine Benzodiazepines Screen Pos Urine Cocaine Screen Neg Urine Cannabinoids Screen Neg Urine Ethyl Alcohol Neg White Blood Count 2.5 x10^3/uL Red Blood Count 3.52 x10^6/uL Hemoglobin 12.2 g/dL Hematocrit 36.4 % Mean Corpuscular Volume 103 fL Mean Corpuscular Hemoglobin 35 pg Mean Corpuscular Hemoglobin Concent 34 g/dL Red Cell Distribution Width 17.0 % Platelet Count 71 x10^3/uL Neutrophils (%) (Auto) 58 % Lymphocytes (%) (Auto) 30 % Monocytes (%) (Auto) 9 % Eosinophils (%) (Auto) 2 % Basophils (%) (Auto) 2 % Neutrophils # (Auto) 1.4 x10^3/uL Lymphocytes # (Auto) 0.7 x10^3/uL Monocytes # (Auto) 0.2 x10^3/uL Eosinophils # (Auto) 0.0 x10^3/uL Basophils # (Auto) 0.0 x10^3/uL Sodium Level 144 mmol/L Potassium Level 3.7 mmol/L Chloride Level 107 mmol/L Carbon Dioxide Level 27 mmol/L Anion Gap 10 Blood Urea Nitrogen 6 mg/dL Creatinine 0.8 mg/dL Estimated GFR (Cockcroft-Gault) 114.3 BUN/Creatinine Ratio 8 Glucose Level 118 mg/dL Calcium Level 8.7 mg/dL Total Bilirubin 2.7 mg/dL Aspartate Amino Transf (AST/SGOT) 152 U/L Alanine Aminotransferase (ALT/SGPT) 67 U/L Alkaline Phosphatase 224 U/L Total Protein 6.4 g/dL Albumin 2.6 g/dL Albumin/Globulin Ratio 0.7 PE: GEN: NAD NEURO/PSYCH: sleeping, not awakened A/P: Intentional drug overdose Macrocytosis, elevated LFTs Cirrhosis - alcohol abuse, AAT MZ phenotype - last EGD 07/2019 -- Stable GI-car[facility], await discharge plans. JANET STEWART Aug 31, 2019 11:05
[2019-08-31] MEDS ORDERED: CYCLOBENZAPRINE 10 MG TABLET. PO ONE (13:15)
[2019-08-31] MEDS ORDERED: POTASSIUM CHLORIDE 20 MEQ TABLET.ER. PO ONE (13:15)
--- NOTE | 2019-08-31 13:40 | NUR ---
SW following pt. Spoke with Vonda at [facility] and they do have open beds. CARLOS phoned and faxed referral- fax: [phone]. Pt acceptance and admission pending. Will continue to follow.
[2019-08-31 15:00] VITALS: BP 123/70
--- NOTE | 2019-08-31 16:16 | NUR ---
[facility] declined pt- stating pt appears to be pain med seeker, and involuntary even after SWer explained pt is agreeable with Tx. [facility] are still fuill. Physician notified. Will continue to follow.
[2019-08-31 18:50] VITALS: BP 145/96
[2019-08-31] MEDS: PRAZOSIN 1 MG CAPSULE. PO SCH (20:36)
[2019-08-31] MEDS: OLANZapine 5 MG TABLET PO SCH (20:37)
[2019-08-31] MEDS: traZODone 50 MG TABLET. PO SCH (20:37)
[2019-08-31 22:32] VITALS: BP 131/71
[2019-09-01 02:18] VITALS: BP 138/91
[2019-09-01] MEDS: KETOROLAC 30 MG/ML VIAL. IV PRN ×4 (02:40→21:48)
[2019-09-01] MEDS: oxyCODONE IR 5 MG TABLET PO PRN ×3 (02:40→19:24)
[2019-09-01] MEDS: CYCLOBENZAPRINE 10 MG TABLET. PO PRN ×3 (04:30→20:34)
[2019-09-01 06:55] VITALS: BP 125/66
--- NOTE | 2019-09-01 08:11 | PDOC ---
PROGRESS NOTES Chief Complaint Chief Complaint EtOH abuse - with acute intoxication on admission Suicide attempt - waiting for psych bed Chronic pain Hypomagnesemia Hypokalemia LEg pains poss neuropathy Concentrated urine resolved Pancytopenia - likely from heavy ETOH use, possibly from medications as well. Unknown hep c and HIV status Acute respiratory failure secondary to acute toxic and metabolic encephalopathy - resolved, extubated 08/25 History of Present Illness History of Present Illness Mr Dsouza is a 29-year-old male who has history of schizophrenia?, history of previous suicidal attempts, history of alcohol abuse, DJD, and h/o alpha-1 antitrypsin deficiency. He was brought into the hospital after he took a handful of gabapentin and Zoloft. Exact quantity is unknown. He was intubated in the Emergency Room and extubated on 08/25/19. Seen by pulmonary/critical care in consultation. 08/29: Asking for more pain meds when he is on a lot and actually very sleepy, Sitter at bedside bec of SI. Slated for psych bed but had some medical issues over the weekend and also no bed avail. K and mag low on friday (not addressed) 08/31: Off O2 overnight. Cough improved. This morning he is sleeping. Upon awakening him he is stating his has acute on chronic bandlike abdominal pain, is requesting an EGD from GI and for me to add back IV fentanyl and increase his oxycodone dosing. Added flexeril and physical therapy. When asked what he does at home for pain he tells me he drinks alcohol until the pain goes away and he passes out. I have advised him I am worried about unintentional overdose from polypharmacy and in response he states, "So I should use a knife when I go home?" I ask if he is still suicidal and he tells me after talking with me he is still suicidal today and would attempt suicide to make it "quicker" next time. He is asking for pain medication to help him sleep. After I left the room he has asked his 12-01 sitter to contact the PAT team so that he can go home. 08/31: Pain is better controlled today. LFTs improved. Potassium normalized. Nebulizer treatments stopped. He was ambulating with PT with no difficulties. No SOB or CP. He tells me if he were to leave today he would go drink alcohol heavily until he didn't wake up. Today patient is asking for IV fentanyl and IV morphine states his pain is worse. He states the IV toradol is not working and the flexeril is not working either. I have advised him I am concerned about requests for IV pain medications given the fact that he was recently on the ventilator and had hypoxia that improved after discontinuation of IV pain medications. He is insistent he leave if I do not provide IV pain medications. He states he does not remember telling me that he was going to cut his wrists with a knife or drink himself to , states he was hallucinating. He does state he knows he was admitted because he tried to kill himself. He states he will not kill himself, but does state that he will go home and drink again and take his prescription for oxycodone 10mg at home. I have offered him 10mg hydrocodone and IM geodon to which he is amenable. He has become combative with me and I have contacted security and advised him to stay in the hospital until he is seen by the state psychiatric zoning administrator. PLAN: Oral pain medications Ok for IV toradol 30mg x1 again Resumed home gabapentin CANCEL CIWA ATIVAN IV, ok for PO Hopefully psych bed with normalized labs He is medically cleared for d/c now Vitals Vitals Vital Signs Date Time Temp Pulse Resp B/P (MAP) Pulse Ox O2 Delivery O2 Flow Rate FiO2 09/01/19 06:55 97.8 68 18 125/66 (85) 95 Room Air 97.8 Physical Exam General: Alert, Oriented X3, Cooperative, mild distress, Other (anxious) Heart: Regular rate, Normal S1 Lungs: Clear Abdomen: Normal bowel sounds Extremities: No clubbing, No cyanosis Skin: No rashes, No significant lesion Labs LABS Laboratory Tests Test 08/31/19 09:50 White Blood Count 2.5 x10^3/uL (4.0-11.0) Red Blood Count 3.52 x10^6/uL (4.30-5.70) Hemoglobin 12.2 g/dL (13.0-17.5) Hematocrit 36.4 % (39.0-53.0) Mean Corpuscular Volume 103 fL (79-100) Mean Corpuscular Hemoglobin 35 pg (25-35) Mean Corpuscular Hemoglobin Concent 34 g/dL (31-37) Red Cell Distribution Width 17.0 % (11.5-14.5) Platelet Count 71 x10^3/uL (140-400) Neutrophils (%) (Auto) 58 % (31-73) Lymphocytes (%) (Auto) 30 % (24-48) Monocytes (%) (Auto) 9 % (0-9) Eosinophils (%) (Auto) 2 % (0-3) Basophils (%) (Auto) 2 % (0-3) Neutrophils # (Auto) 1.4 x10^3/uL (1.8-7.7) Lymphocytes # (Auto) 0.7 x10^3/uL (1.0-4.8) Monocytes # (Auto) 0.2 x10^3/uL (0.0-1.1) Eosinophils # (Auto) 0.0 x10^3/uL (0.0-0.7) Basophils # (Auto) 0.0 x10^3/uL (0.0-0.2) Sodium Level 144 mmol/L (136-145) Potassium Level 3.7 mmol/L (3.5-5.1) Chloride Level 107 mmol/L (98-107) Carbon Dioxide Level 27 mmol/L (21-32) Anion Gap 10 (6-14) Blood Urea Nitrogen 6 mg/dL (8-26) Creatinine 0.8 mg/dL (0.7-1.3) Estimated GFR (Cockcroft-Gault) 114.3 BUN/Creatinine Ratio 8 (6-20) Glucose Level 118 mg/dL (70-99) Calcium Level 8.7 mg/dL (8.5-10.1) Total Bilirubin 2.7 mg/dL (0.2-1.0) Aspartate Amino Transf (AST/SGOT) 152 U/L (15-37) Alanine Aminotransferase (ALT/SGPT) 67 U/L (16-63) Alkaline Phosphatase 224 U/L (46-116) Total Protein 6.4 g/dL (6.4-8.2) Albumin 2.6 g/dL (3.4-5.0) Albumin/Globulin Ratio 0.7 (1.0-1.7) Assessment and Plan Assessmemt and Plan Problems Medical Problems: (1) Aggressive behavior Status: Acute (2) Alcohol intoxication Status: Acute (3) 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 Labs Laboratory Tests Test 08/30/19 22:00 08/31/19 09:50 Urine Opiates Screen Pos (NEG) Urine Methadone Screen Neg (NEG) Urine Barbiturates Neg (NEG) Urine Phencyclidine Screen Neg (NEG) Urine Amphetamine/Methamphetamine Neg (NEG) Urine Benzodiazepines Screen Pos (NEG) Urine Cocaine Screen Neg (NEG) Urine Cannabinoids Screen Neg (NEG) Urine Ethyl Alcohol Neg (NEG) White Blood Count 2.5 x10^3/uL (4.0-11.0) Red Blood Count 3.52 x10^6/uL (4.30-5.70) Hemoglobin 12.2 g/dL (13.0-17.5) Hematocrit 36.4 % (39.0-53.0) Mean Corpuscular Volume 103 fL (79-100) Mean Corpuscular Hemoglobin 35 pg (25-35) Mean Corpuscular Hemoglobin Concent 34 g/dL (31-37) Red Cell Distribution Width 17.0 % (11.5-14.5) Platelet Count 71 x10^3/uL (140-400) Neutrophils (%) (Auto) 58 % (31-73) Lymphocytes (%) (Auto) 30 % (24-48) Monocytes (%) (Auto) 9 % (0-9) Eosinophils (%) (Auto) 2 % (0-3) Basophils (%) (Auto) 2 % (0-3) Neutrophils # (Auto) 1.4 x10^3/uL (1.8-7.7) Lymphocytes # (Auto) 0.7 x10^3/uL (1.0-4.8) Monocytes # (Auto) 0.2 x10^3/uL (0.0-1.1) Eosinophils # (Auto) 0.0 x10^3/uL (0.0-0.7) Basophils # (Auto) 0.0 x10^3/uL (0.0-0.2) Sodium Level 144 mmol/L (136-145) Potassium Level 3.7 mmol/L (3.5-5.1) Chloride Level 107 mmol/L (98-107) Carbon Dioxide Level 27 mmol/L (21-32) Anion Gap 10 (6-14) Blood Urea Nitrogen 6 mg/dL (8-26) Creatinine 0.8 mg/dL (0.7-1.3) Estimated GFR (Cockcroft-Gault) 114.3 BUN/Creatinine Ratio 8 (6-20) Glucose Level 118 mg/dL (70-99) Calcium Level 8.7 mg/dL (8.5-10.1) Total Bilirubin 2.7 mg/dL (0.2-1.0) Aspartate Amino Transf (AST/SGOT) 152 U/L (15-37) Alanine Aminotransferase (ALT/SGPT) 67 U/L (16-63) Alkaline Phosphatase 224 U/L (46-116) Total Protein 6.4 g/dL (6.4-8.2) Albumin 2.6 g/dL (3.4-5.0) Albumin/Globulin Ratio 0.7 (1.0-1.7) Laboratory Tests Test 08/31/19 09:50 White Blood Count 2.5 x10^3/uL (4.0-11.0) Red Blood Count 3.52 x10^6/uL (4.30-5.70) Hemoglobin 12.2 g/dL (13.0-17.5) Hematocrit 36.4 % (39.0-53.0) Mean Corpuscular Volume 103 fL (79-100) Mean Corpuscular Hemoglobin 35 pg (25-35) Mean Corpuscular Hemoglobin Concent 34 g/dL (31-37) Red Cell Distribution Width 17.0 % (11.5-14.5) Platelet Count 71 x10^3/uL (140-400) Neutrophils (%) (Auto) 58 % (31-73) Lymphocytes (%) (Auto) 30 % (24-48) Monocytes (%) (Auto) 9 % (0-9) Eosinophils (%) (Auto) 2 % (0-3) Basophils (%) (Auto) 2 % (0-3) Neutrophils # (Auto) 1.4 x10^3/uL (1.8-7.7) Lymphocytes # (Auto) 0.7 x10^3/uL (1.0-4.8) Monocytes # (Auto) 0.2 x10^3/uL (0.0-1.1) Eosinophils # (Auto) 0.0 x10^3/uL (0.0-0.7) Basophils # (Auto) 0.0 x10^3/uL (0.0-0.2) Sodium Level 144 mmol/L (136-145) Potassium Level 3.7 mmol/L (3.5-5.1) Chloride Level 107 mmol/L (98-107) Carbon Dioxide Level 27 mmol/L (21-32) Anion Gap 10 (6-14) Blood Urea Nitrogen 6 mg/dL (8-26) Creatinine 0.8 mg/dL (0.7-1.3) Estimated GFR (Cockcroft-Gault) 114.3 BUN/Creatinine Ratio 8 (6-20) Glucose Level 118 mg/dL (70-99) Calcium Level 8.7 mg/dL (8.5-10.1) Total Bilirubin 2.7 mg/dL (0.2-1.0) Aspartate Amino Transf (AST/SGOT) 152 U/L (15-37) Alanine Aminotransferase (ALT/SGPT) 67 U/L (16-63) Alkaline Phosphatase 224 U/L (46-116) Total Protein 6.4 g/dL (6.4-8.2) Albumin 2.6 g/dL (3.4-5.0) Albumin/Globulin Ratio 0.7 (1.0-1.7) Microbiology 08/24/19 Urine Culture - Final, Complete 08/24/19 Urine Culture Result 1 (ERICK) - Final, Complete Medications Current Medications Succinylcholine Chloride (Anectine) 200 mg STK-MED ONCE .ROUTE ; Start 08/24/19 at 00:11; Stop 08/24/19 at 00:12; Status DC Propofol 100 ml @ 0 mls/hr CONT PRN IV SEE PROTOCOL Last administered on 08/25/19at 09:16; Start 08/24/19 at 00:30; Stop 08/25/19 at 20:09; Status DC Fentanyl Citrate (Fentanyl 2ml Vial) 50 mcg PRN Q1HR PRN IV SEE COMMENTS Last administered on 08/25/19at 05:00; Start 08/24/19 at 00:30; Stop 08/25/19 at 20:09; Status DC Chlorhexidine Gluconate (Peridex) 15 ml BID MM Last administered on 08/25/19at 07:42; Start 08/24/19 at 09:00; Stop 08/25/19 at 19:18; Status DC Morphine Sulfate (Morphine Sulfate) 2 mg PRN Q1HR PRN IV SEE COMMENTS. Last administered on 08/24/19at 20:32; Start 08/24/19 at 00:30; Stop 08/25/19 at 20:09; Status DC Midazolam HCl (Versed) 1 mg PRN Q30MIN PRN IV SEE COMMENTS. Last administered on 08/24/19at 20:32; Start 08/24/19 at 00:30; Stop 08/25/19 at 20:09; Status DC Propofol 50 ml @ As Directed STK-MED ONCE IV ; Start 08/24/19 at 00:21; Stop 08/24/19 at 00:22; Status DC Etomidate (Amidate) 20 mg STK-MED ONCE IV ; Start 08/24/19 at 01:02; Stop 08/24/19 at 01:02; Status DC Etomidate (Amidate) 20 mg 1X ONCE IV Last administered on 08/24/19at 02:09; Start 08/24/19 at 01:45; Stop 08/24/19 at 01:46; Status DC Succinylcholine Chloride (Anectine) 100 mg 1X ONCE IV Last administered on 08/24/19at 02:09; Start 08/24/19 at 01:45; Stop 08/24/19 at 01:46; Status DC Propofol 50 ml @ As Directed STK-MED ONCE IV ; Start 08/24/19 at 02:17; Stop 08/24/19 at 02:18; Status DC Ondansetron HCl (Zofran) 4 mg PRN Q8HRS PRN IV NAUSEA/VOMITING; Start 08/24/19 at 02:30; Stop 08/25/19 at 02:29; Status DC Albuterol/ Ipratropium (Duoneb) 3 ml RTQID NEB Last administered on 08/24/19at 19:55; Start 08/24/19 at 08:00; Stop 08/25/19 at 07:59; Status DC Sodium Chloride 1,000 ml @ 1,000 mls/hr 1X ONCE IV Last administered on 08/24/19at 04:30; Start 08/24/19 at 03:30; Stop 08/24/19 at 04:29; Status DC Sodium Chloride 1,000 ml @ 100 mls/hr Q10H IV Last administered on 08/26/19at 06:20; Start 08/24/19 at 04:30; Stop 08/26/19 at 11:39; Status DC Dextrose (Dextrose 50%-Water Syringe) 25 gm STK-MED ONCE IV ; Start 08/24/19 at 11:31; Stop 08/24/19 at 11:32; Status DC Pantoprazole Sodium (PROTONIX VIAL for IV PUSH) 40 mg DAILYAC IVP Last administered on 08/27/19at 08:10; Start 08/24/19 at 13:00; Stop 08/27/19 at 08:36; Status DC Midazolam HCl 100 ml @ 5 mls/hr CONT PRN IV SEE I/O RECORD Last administered on 08/24/19at 21:26; Start 08/24/19 at 21:15; Stop 08/25/19 at 20:12; Status DC Dexmedetomidine HCl 400 mcg/ Sodium Chloride 100 ml @ 0 mls/hr CONT PRN IV ANXIETY / AGITATION Last administered on 08/25/19at 10:56; Start 08/25/19 at 10:30; Stop 08/25/19 at 20:12; Status DC Sodium Chloride 500 ml @ 500 mls/hr 1X PRN PRN IV PER PROTOCOL; Start 08/25/19 at 10:30; Stop 08/25/19 at 20:12; Status DC Atropine Sulfate (ATROPINE 0.5mg SYRINGE) 0.5 mg PRN Q5MIN PRN IV SEE COMMENTS; Start 08/25/19 at 10:30; Stop 08/25/19 at 20:12; Status DC Lorazepam (Ativan Inj) 0.5 mg 1X ONCE IV Last administered on 08/25/19at 17:05; Start 08/25/19 at 16:45; Stop 08/25/19 at 16:46; Status DC Lorazepam (Ativan) 4 mg PRN Q1HR PRN PO For CIWA 8-14; Start 08/25/19 at 18:00; Stop 08/29/19 at 10:53; Status DC Lorazepam (Ativan) 8 mg PRN Q1HR PRN PO For CIWA 15 or greater; Start 08/25/19 at 18:00; Stop 08/29/19 at 10:53; Status DC Lorazepam (Ativan Inj) 2 mg PRN Q1HR PRN IV For CIWA 8-14 Last administered on 08/29/19at 10:04; Start 08/25/19 at 18:00; Stop 08/29/19 at 10:53; Status DC Lorazepam (Ativan Inj) 4 mg PRN Q1HR PRN IV For CIWA 15 or greater Last admin istered on 08/28/19at 15:41; Start 08/25/19 at 18:00; Stop 08/29/19 at 10:53; Status DC Morphine Sulfate (Morphine Sulfate) 2 mg PRN Q2HR PRN IV MILD PAIN 1-3 Last administered on 08/28/19at 17:15; Start 08/25/19 at 20:30; Stop 08/29/19 at 10:53; Status DC Fentanyl Citrate (Fentanyl 2ml Vial) 75 mcg Q4HRS PRN IV MOD TO SEVERE PAIN Last administered on 08/29/19at 10:01; Start 08/26/19 at 10:30; Stop 08/29/19 at 10:53; Status DC Furosemide (Lasix) 40 mg 1X ONCE IVP Last administered on 08/26/19at 11:36; S tart 08/26/19 at 11:00; Stop 08/26/19 at 11:01; Status DC Magnesium Sulfate 50 ml @ 25 mls/hr 1X ONCE IV ; Start 08/26/19 at 11:45; Stop 08/26/19 at 13:44; Status UNV Magnesium Sulfate 50 ml @ 25 mls/hr 1X ONCE IV Last administered on 08/26/19at 13:08; Start 08/26/19 at 11:45; Stop 08/26/19 at 13:44; Status DC Magnesium Sulfate 50 ml @ 25 mls/hr 1X ONCE IV Last administered on 08/27/19at 11:05; Start 08/27/19 at 08:45; Stop 08/27/19 at 10:44; Status DC Sodium Chloride 1,000 ml @ 100 mls/hr Q10H IV ; Start 08/27/19 at 11:15; Stop 08/27/19 at 11:26; Status DC Pantoprazole Sodium (Protonix) 40 mg DAILYAC PO Last administered on 08/30/19 08:40; Start 08/27/19 at 12:30 Influenza Virus Vaccine Quadrival (Afluria Quad 2019-20 (3yr Up) Syringe) 0.5 ml ONCE ONCE VAX IM Last administered on 08/27/19 20:37; Start 08/27/19 at 21:00; Stop 08/27/19 at 21:01; Status DC Famotidine (Pepcid) 20 mg BID PO Last administered on 08/30/19 08:41; Start 08/28/19 at 21:00; Stop 08/30/19 at 11:01; Status DC Ferrous Sulfate (Feosol) 325 mg DAILYWBKFT PO Last administered on 08/31/19 08:15; Start 08/28/19 at 15:00 Folic Acid (Folic Acid) 1 mg DAILY PO Last administered on 08/31/19 08:15; Start 08/28/19 at 15:00 Haloperidol (Haldol) 5 mg BID PO Last administered on 08/31/19 20:37; Start 08/28/19 at 15:00 Olanzapine (ZyPREXA) 5 mg QHS PO Last administered on 08/31/19 20:37; Start 08/28/19 at 21:00 Prazosin HCl (Minipress) 1 mg QHS PO Last administered on 08/31/19 20:36; Start 08/28/19 at 21:00 Sertraline HCl (Zoloft) 50 mg DAILY PO Last administered on 08/31/19 08:16; Start 08/28/19 at 15:00 Trazodone HCl (Desyrel) 100 mg QHS PO Last administered on 08/28/19 20:08; Start 08/28/19 at 21:00; Stop 08/29/19 at 10:53; Status DC Multivitamins (Thera M Plus) 1 tab DAILY PO Last administered on 08/31/19 08:14; Start 08/28/19 at 15:00 Thiamine Mononitrate (Vitamin B-1) 100 mg DAILY PO Last administered on 08/31/19 08:15; Start 08/28/19 at 15:00 Albuterol/ Ipratropium (Duoneb) 3 ml RTQID NEB Last administered on 08/31/19 08:05; Start 08/29/19 at 08:00; Stop 08/31/19 at 08:23; Status DC Potassium Chloride (Klor-Con) 40 meq 1X ONCE PO Last administered on 08/29/19at 10:07; Start 08/29/19 at 09:30; Stop 08/29/19 at 09:31; Status DC Magnesium Sulfate 50 ml @ 25 mls/hr 1X ONCE IV Last administered on 08/29/19at 10:08; Start 08/29/19 at 10:00; Stop 08/29/19 at 11:59; Status DC Oxycodone/ Acetaminophen (Percocet 5/325) 1 tab PRN Q4HRS PRN PO PAIN; Start 08/29/19 at 09:30; Stop 08/29/19 at 10:53; Status DC Potassium Chloride (Klor-Con) 20 meq 1X ONCE PO Last administered on 08/29/19at 10:05; Start 08/29/19 at 09:30; Stop 08/29/19 at 09:31; Status DC Trazodone HCl (Desyrel) 50 mg QHS PO Last administered on 08/31/19 20:37; Start 08/29/19 at 11:00 Hydroxyzine HCl (Atarax) 75 mg TID PO Last administered on 08/31/19 08:15; Start 08/29/19 at 14:00; Stop 08/31/19 at 08:23; Status DC Lorazepam (Ativan) 0.5 mg TID PO Last administered on 08/31/19 20:37; Start 08/29/19 at 14:00 Gabapentin (Neurontin) 600 mg TID PO Last administered on 08/31/19at 20:37; Start 08/29/19 at 14:00 Oxycodone HCl (Roxicodone) 5 mg PRN Q6HRS PRN PO PAIN Last administered on 09/01/19 02:40; Start 08/29/19 at 11:00 Potassium Chloride (Klor-Con) 40 meq 1X ONCE PO Last administered on 08/30/19at 11:38; Start 08/30/19 at 11:30; Stop 08/30/19 at 11:31; Status DC Ketorolac Tromethamine (Toradol 30mg Vial) 30 mg PRN Q6HRS PRN IV PAIN Last administered on 09/01/19at 02:40; Start 08/30/19 at 10:30; Stop 09/04/19 at 10:29 Cyclobenzaprine HCl (Flexeril) 5 mg PRN Q8HRS PRN PO MUSCLE SPASMS Last administered on 08/31/19at 12:21; Start 08/30/19 at 20:15; Stop 08/31/19 at 13:12; Status DC Hydroxyzine HCl (Atarax) 75 mg PRN TID PRN PO ITCHING Last administered on 09/01/19at 04:32; Start 08/31/19 at 08:30 Cyclobenzaprine HCl (Flexeril) 10 mg PRN Q8HRS PRN PO MUSCLE SPASMS Last administered on 09/01/19at 04:30; Start 08/31/19 at 21:00 Potassium Chloride (Klor-Con) 40 meq 1X ONCE PO Last administered on 08/31/19at 13:24; Start 08/31/19 at 13:15; Stop 08/31/19 at 13:16; Status DC Cyclobenzaprine HCl (Flexeril) 5 mg 1X ONCE PO Last administered on 08/31/19at 13:23; Start 08/31/19 at 13:15; Stop 08/31/19 at 13:16; Status DC Active Scripts Active Lorazepam 0.5 Mg Tablet 1 Tab PO TID 7 Days Oxycodone Hcl 5 Mg Capsule 5 Mg PO PRN Q6HRS PRN 10 Days Multivitamins (Multivitamin) 1 Each Tablet 1 Tab PO DAILY Folic Acid 1 Mg Tablet 1 Tab PO DAILY Vitamin B-1 (Thiamine Hcl) 100 Mg Tablet 100 Mg PO DAILY 30 Days Famotidine 20 Mg Tablet 20 Mg PO BID 30 Days Feosol (Ferrous Sulfate) 325 Mg Tablet 325 Mg PO DAILYWBKFT 30 Days Reported Gabapentin 600 Mg Tablet 600 Mg PO TID Haloperidol 5 Mg Tablet 1 Tab PO BID Zyprexa (Olanzapine) 5 Mg Tablet 1 Tab PO QHS Prazosin Hcl 1 Mg Capsule 1 Cap PO QHS Trazodone Hcl 100 Mg Tablet 1 Tab PO QHS Hydroxyzine Hcl 25 Mg Tablet 3 Tab PO TID Zoloft (Sertraline Hcl) 50 Mg Tablet 1 Tab PO DAILY Vitals/I & O Vital Sign - Last 24 Hours 08/31/19 08/31/19 08/31/19 08/31/19 10:48 12:20 13:21 15:00 Temp 97.8 97.8 97.8 97.8 Pulse 81 61 Resp 19 18 18 19 B/P (MAP) 133/81 (98) 123/70 (87) Pulse Ox 91 92 O2 Delivery Room Air Room Air 08/31/19 08/31/19 08/31/19 08/31/19 18:50 18:58 19:15 19:58 Temp 98.5 98.5 Pulse 85 Resp 18 18 16 B/P (MAP) 145/96 (112) Pulse Ox 96 96 O2 Delivery Room Air Room Air Room Air Room Air 08/31/19 08/31/19 09/01/19 09/01/19 20:36 22:32 02:18 02:40 Temp 97.4 97.4 Pulse 85 67 67 Resp 19 20 17 B/P (MAP) 145/96 131/71 (91) 138/91 (107) Pulse Ox 95 100 100 O2 Delivery Room Air Room Air Room Air 09/01/19 09/01/19 03:40 06:55 Temp 97.8 97.8 Pulse 68 Resp 17 18 B/P (MAP) 125/66 (85) Pulse Ox 100 95 O2 Delivery Room Air Room Air Intake and Output 08/31/19 08/31/19 09/01/19 15:00 23:00 07:00 Intake Total 600 ml 400 ml Balance 600 ml 400 ml BENJIE CHANEL MD Sep 01, 2019 08:11
[2019-09-01] MEDS ORDERED: MAGNESIUM CITRATE 296 ML SOLUTION. PO ONE (08:15)
[2019-09-01] MEDS: POLYETHYLENE GLYCOL 3350 17 GM PACKET. PO SCH (09:00)
[2019-09-01] MEDS: SERTRALINE 50 MG TABLET. PO SCH (09:00)
[2019-09-01] MEDS: GABAPENTIN 300 MG CAPSULE. PO SCH ×3 (09:01→20:33)
[2019-09-01] MEDS: THIAMINE 100 MG TABLET. PO SCH (09:01)
[2019-09-01] MEDS: PANTOPRAZOLE 40 MG TABLET.DR. PO SCH (09:01)
[2019-09-01] MEDS: HALOPERIDOL 5 MG TABLET. PO SCH ×2 (09:01→20:33)
[2019-09-01] MEDS: MULTIVITAMIN with MINERAL TABLET. PO SCH (09:01)
[2019-09-01] MEDS: FOLIC ACID 1 MG TABLET. PO SCH (09:01)
[2019-09-01] MEDS: LORazepam 0.5 MG TABLET PO SCH ×3 (10:08→20:34)
[2019-09-01] MEDS ORDERED: BISACODYL 5 MG TABLET.DR. PO PRN (10:45)
--- NOTE | 2019-09-01 10:45 | PDOC ---
Subjective: Subjective: Abd pain - right-sided, goes into chest and arm - worse w/ deep-breathing. Ate some for breakfast. Hasn't stooled in a couple days. "Oxy does nothin" for pain - I suggested this could be stopped if it's not helping - he doesn't think that would be a good idea. Toradol not helping either. "Think I could have a scope now that it's been two months?" Objective: Objective: Stool charted 08/30 - has Miralax ordered which he refused. Vital Signs: Vital Signs Date Time Temp Pulse Resp B/P (MAP) Pulse Ox O2 Delivery O2 Flow Rate FiO2 09/01/19 10:08 Room Air 09/01/19 06:55 97.8 68 18 125/66 (85) 95 97.8 PE: GEN: NAD - sitting up in bed holding abdomen and rocking back and forth LUNGS: CTAB HEART: RRR ABD: soft - tender over right ribs, also winces when RUQ/flank touched NEURO/PSYCH: A & O 3 A/P: Intentional drug overdose/psych issues Cirrhosis - alcohol abuse, AAT MZ phenotype - last EGD 07/2019, LFTs chronically elevated (stable) -- No plans for scope - have exhaustively discussed w/ him. DC per primary. JANET STEWART Sep 01, 2019 10:45
[2019-09-01 11:00] VITALS: BP 132/95
[2019-09-01] MEDS ORDERED: ZIPRASIDONE IM 20 MG VIAL. IM ONE (12:15)
[2019-09-01] MEDS ORDERED: HYDROcodone/APAP 10/325 1 TAB TABLET PO ONE (12:30)
--- NOTE | 2019-09-01 14:00 | NUR ---
MCKAYLA mtz called the front office spec to make us aware that Dr. Pretty was in the patients room doing rounds this afternoon. She stated that the patient was threatening to leave if the doctor did not treat his pain. Patient was becoming agitated. This RN called security to come help staff. A minute later this RN sees Dr. Pretty trying to stop the patient from leaving at the nurses station. Ashley pittman was called around noon. Dr. Palmer on unit and stepped in to help Dr. Pretty. Three security officers showed up. Patient was stated he just wanted to go home because we did not care and were not treating his pain. He states he wanted to go home and drink and when he sobered he was going to take some pain medications. Security tried to reason with patient, Dr. Pretty, Mariella Coatings Inspector, Yusra Nursing supervisor benzene refining, but nothing was helping. Dr. Pretty gave an order of Geodon 5mg IM 1X. Patient was forcefully placed in a wheelchair and he calmed down a little while waiting for medication from pharmacy, two officers and Dr. Palmer were holding him down. Patient was intermittently agitated. Medication was given to patient and he was wheeled to his room with two officers holding him down and two RN's. Once in room, patient refused to go to bed and he was forcefully place in the bed, once in the bed patient calmed down quite a bit and started to be more reasonable. Dr. Pretty had spoken to him while we were still by the nurses station that he would order a 1 X dose of hydrocodone 10mg. Once in room patient was given hydrocodone and Flexeril and he agreed to stay in bed. manager Mariella started a new IV on patient. Patient was calm and we all left the unit. Will continue to monitor patient.
[2019-09-01 15:05] VITALS: BP 137/83
--- NOTE | 2019-09-01 16:39 | NUR ---
CARLOS following pt. Pt seen by State systems software designer today and involuntary placement is initiated at OSH. Plan 1. [place] [facility] office to petition court regarding involuntary placement 2. Pt acceptance and admission at OSH pending. 3. Discussed with PAT team and Physician. Will continue to follow.
[2019-09-01 19:21] VITALS: BP 135/84
[2019-09-01] MEDS: traZODone 50 MG TABLET. PO SCH (20:33)
[2019-09-01] MEDS: PRAZOSIN 1 MG CAPSULE. PO SCH (20:33)
[2019-09-01] MEDS: OLANZapine 5 MG TABLET PO SCH (20:33)
[2019-09-01 23:00] VITALS: BP 124/84
--- NOTE | 2019-09-01 23:13 | NUR ---
Pts vitals have been WNL so I did not take pts 2300 vital signs due to pt is sleeping. Pt has been complaining of pain this shift and did not want to wake him and then he has trouble getting to sleep again and becomes agitated. Will continue to monitor pt. Addendum: 09/01/19 at 2349 by GIGI LYON RN RN Pt woke up so I was able to get vitals and have them charted. Vitals still WNL. Will continue to monitior.
[2019-09-02 03:00] VITALS: BP 143/81
--- NOTE | 2019-09-02 03:30 | NUR ---
Again pt is sleeping. Pts vitals have been stable this shift. I will attempt to get vitals when patient wakes up. I will continue to monitor. Addendum: 09/02/19 at 0426 by GIGI LYON RN RN Was able to get patients vital signs. Still WNL.
[2019-09-02] MEDS: KETOROLAC 30 MG/ML VIAL. IV PRN ×2 (04:28→13:35)
[2019-09-02] MEDS: CYCLOBENZAPRINE 10 MG TABLET. PO PRN ×2 (04:28→13:35)
--- NOTE | 2019-09-02 08:53 | PDOC ---
PROGRESS NOTES Chief Complaint Chief Complaint EtOH abuse - with acute intoxication on admission Suicide attempt - waiting for psych bed Chronic pain Hypomagnesemia Hypokalemia LEg pains poss neuropathy Concentrated urine resolved Pancytopenia - likely from heavy ETOH use, possibly from medications as well. Unknown hep c and HIV status Acute respiratory failure secondary to acute toxic and metabolic encephalopathy - resolved, extubated 08/25 History of Present Illness History of Present Illness Mr Dosuza is a 29-year-old male who has history of schizophrenia?, history of previous suicidal attempts, history of alcohol abuse, DJD, and h/o alpha-1 antitrypsin deficiency. He was brought into the hospital after he took a handful of gabapentin and Zoloft. Exact quantity is unknown. He was intubated in the Emergency Room and extubated on 08/25/19. Seen by pulmonary/critical care in consultation. 08/29: Asking for more pain meds when he is on a lot and actually very sleepy, Sitter at bedside bec of SI. Slated for psych bed but had some medical issues over the weekend and also no bed avail. K and mag low on friday (not addressed) 08/31: Off O2 overnight. Cough improved. This morning he is sleeping. Upon awakening him he is stating his has acute on chronic bandlike abdominal pain, is requesting an EGD from GI and for me to add back IV fentanyl and increase his oxycodone dosing. Added flexeril and physical therapy. When asked what he does at home for pain he tells me he drinks alcohol until the pain goes away and he passes out. I have advised him I am worried about unintentional overdose from polypharmacy and in response he states, "So I should use a knife when I go home?" I ask if he is still suicidal and he tells me after talking with me he is still suicidal today and would attempt suicide to make it "quicker" next time. He is asking for pain medication to help him sleep. After I left the room he has asked his 12-01 sitter to contact the PAT team so that he can go home. 08/31: Pain is better controlled today. LFTs improved. Potassium normalized. Nebulizer treatments stopped. He was ambulating with PT with no difficulties. No SOB or CP. He tells me if he were to leave today he would go drink alcohol heavily until he didn't wake up. 09/01: Today patient is asking for IV fentanyl and IV morphine states his pain is worse. He states the IV toradol is not working and the flexeril is not working either. I have advised him I am concerned about requests for IV pain medications given the fact that he was recently on the ventilator and had hypoxia that improved after discontinuation of IV pain medications. He is insistent he leave if I do not provide IV pain medications. He states he does not remember telling me that he was going to cut his wrists with a knife or drink himself to , states he was hallucinating. He does state he knows he was admitted because he tried to kill himself. He states he will not kill himself, but does state that he will go home and d rink again and take his prescription for oxycodone 10mg at home. I have offered him 10mg hydrocodone and IM geodon to which he is amenable. He has become combative with me and I have contacted security and advised him to stay in the hospital until he is seen by the [facility] psychiatric associate professor of counseling. After geodon he is more calm, collected. He is anxious about going to inpatient psych and is asking for hydrocodone. I have counseled him low dose NSAIDs are the only pain medication he will be taking. He is open to getting treatment for his addictions. I have d/w psych at [place]. PLAN: Oral pain medications - nsaids Resumed home gabapentin Cont psych meds He is medically cleared for d/c now Vitals Vitals Vital Signs Date Time Temp Pulse Resp B/P (MAP) Pulse Ox O2 Delivery O2 Flow Rate FiO2 09/02/19 03:00 98.1 61 16 143/81 (101) 95 Room Air 98.1 Physical Exam General: Alert, Oriented X3, Cooperative, mild distress, Other (anxious) Heart: Regular rate, Normal S1 Lungs: Clear Abdomen: Normal bowel sounds Extremities: No clubbing, No cyanosis Skin: No rashes, No significant lesion Assessment and Plan Assessmemt and Plan Problems Medical Problems: (1) Aggressive behavior Status: Acute (2) Alcohol intoxication Status: Acute (3) 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 Labs Laboratory Tests Test 08/31/19 09:50 White Blood Count 2.5 x10^3/uL (4.0-11.0) Red Blood Count 3.52 x10^6/uL (4.30-5.70) Hemoglobin 12.2 g/dL (13.0-17.5) Hematocrit 36.4 % (39.0-53.0) Mean Corpuscular Volume 103 fL (79-100) Mean Corpuscular Hemoglobin 35 pg (25-35) Mean Corpuscular Hemoglobin Concent 34 g/dL (31-37) Red Cell Distribution Width 17.0 % (11.5-14.5) Platelet Count 71 x10^3/uL (140-400) Neutrophils (%) (Auto) 58 % (31-73) Lymphocytes (%) (Auto) 30 % (24-48) Monocytes (%) (Auto) 9 % (0-9) Eosinophils (%) (Auto) 2 % (0-3) Basophils (%) (Auto) 2 % (0-3) Neutrophils # (Auto) 1.4 x10^3/uL (1.8-7.7) Lymphocytes # (Auto) 0.7 x10^3/uL (1.0-4.8) Monocytes # (Auto) 0.2 x10^3/uL (0.0-1.1) Eosinophils # (Auto) 0.0 x10^3/uL (0.0-0.7) Basophils # (Auto) 0.0 x10^3/uL (0.0-0.2) Sodium Level 144 mmol/L (136-145) Potassium Level 3.7 mmol/L (3.5-5.1) Chloride Level 107 mmol/L (98-107) Carbon Dioxide Level 27 mmol/L (21-32) Anion Gap 10 (6-14) Blood Urea Nitrogen 6 mg/dL (8-26) Creatinine 0.8 mg/dL (0.7-1.3) Estimated GFR (Cockcroft-Gault) 114.3 BUN/Creatinine Ratio 8 (6-20) Glucose Level 118 mg/dL (70-99) Calcium Level 8.7 mg/dL (8.5-10.1) Total Bilirubin 2.7 mg/dL (0.2-1.0) Aspartate Amino Transf (AST/SGOT) 152 U/L (15-37) Alanine Aminotransferase (ALT/SGPT) 67 U/L (16-63) Alkaline Phosphatase 224 U/L (46-116) Total Protein 6.4 g/dL (6.4-8.2) Albumin 2.6 g/dL (3.4-5.0) Albumin/Globulin Ratio 0.7 (1.0-1.7) Microbiology 08/24/19 Urine Culture - Final, Complete 08/24/19 Urine Culture Result 1 (ERICK) - Final, Complete Medications Current Medications Succinylcholine Chloride (Anectine) 200 mg STK-MED ONCE .ROUTE ; Start 08/24/19 at 00:11; Stop 08/24/19 at 00:12; Status DC Propofol 100 ml @ 0 mls/hr CONT PRN IV SEE PROTOCOL Last administered on 08/25/19at 09:16; Start 08/24/19 at 00:30; Stop 08/25/19 at 20:09; Status DC Fentanyl Citrate (Fentanyl 2ml Vial) 50 mcg PRN Q1HR PRN IV SEE COMMENTS Last administered on 08/25/19at 05:00; Start 08/24/19 at 00:30; Stop 08/25/19 at 2 0:09; Status DC Chlorhexidine Gluconate (Peridex) 15 ml BID MM Last administered on 08/25/19at 07:42; Start 08/24/19 at 09:00; Stop 08/25/19 at 19:18; Status DC Morphine Sulfate (Morphine Sulfate) 2 mg PRN Q1HR PRN IV SEE COMMENTS. Last administered on 08/24/19at 20:32; Start 08/24/19 at 00:30; Stop 08/25/19 at 20:09; Status DC Midazolam HCl (Versed) 1 mg PRN Q30MIN PRN IV SEE COMMENTS. Last administered on 08/24/19at 20:32; Start 08/24/19 at 00:30; Stop 08/25/19 at 20:09; Status DC Propofol 50 ml @ As Directed STK-MED ONCE IV ; Start 08/24/19 at 00:21; Stop 08/24/19 at 00:22; Status DC Etomidate (Amidate) 20 mg STK-MED ONCE IV ; Start 08/24/19 at 01:02; Stop 08/24/19 at 01:02; Status DC Etomidate (Amidate) 20 mg 1X ONCE IV Last administered on 08/24/19at 02:09; Start 08/24/19 at 01:45; Stop 08/24/19 at 01:46; Status DC Succinylcholine Chloride (Anectine) 100 mg 1X ONCE IV Last administered on 08/24/19at 02:09; Start 08/24/19 at 01:45; Stop 08/24/19 at 01:46; Status DC Propofol 50 ml @ As Directed STK-MED ONCE IV ; Start 08/24/19 at 02:17; Stop 08/24/19 at 02:18; Status DC Ondansetron HCl (Zofran) 4 mg PRN Q8HRS PRN IV NAUSEA/VOMITING; Start 08/24/19 at 02:30; Stop 08/25/19 at 02:29; Status DC Albuterol/ Ipratropium (Duoneb) 3 ml RTQID NEB Last administered on 08/24/19at 19:55; Start 08/24/19 at 08:00; Stop 08/25/19 at 07:59; Status DC Sodium Chloride 1,000 ml @ 1,000 mls/hr 1X ONCE IV Last administered on 08/24/19at 04:30; Start 08/24/19 at 03:30; Stop 08/24/19 at 04:29; Status DC Sodium Chloride 1,000 ml @ 100 mls/hr Q10H IV Last administered on 08/26/19at 06:20; Start 08/24/19 at 04:30; Stop 08/26/19 at 11:39; Status DC Dextrose (Dextrose 50%-Water Syringe) 25 gm STK-MED ONCE IV ; Start 08/24/19 at 11:31; Stop 08/24/19 at 11:32; Status DC Pantoprazole Sodium (PROTONIX VIAL for IV PUSH) 40 mg DAILYAC IVP Last administered on 08/27/19at 08:10; Start 08/24/19 at 13:00; Stop 08/27/19 at 08:36; Status DC Midazolam HCl 100 ml @ 5 mls/hr CONT PRN IV SEE I/O RECORD Last administered on 08/24/19at 21:26; Start 08/24/19 at 21:15; Stop 08/25/19 at 20:12; Status DC Dexmedetomidine HCl 400 mcg/ Sodium Chloride 100 ml @ 0 mls/hr CONT PRN IV ANXIETY / AGITATION Last administered on 08/25/19at 10:56; Start 08/25/19 at 10:30; Stop 08/25/19 at 20:12; Status DC Sodium Chloride 500 ml @ 500 mls/hr 1X PRN PRN IV PER PROTOCOL; Start 08/25/19 at 10:30; Stop 08/25/19 at 20:12; Status DC Atropine Sulfate (ATROPINE 0.5mg SYRINGE) 0.5 mg PRN Q5MIN PRN IV SEE COMMENTS; Start 08/25/19 at 10:30; Stop 08/25/19 at 20:12; Status DC Lorazepam (Ativan Inj) 0.5 mg 1X ONCE IV Last administered on 08/25/19at 17:05; Start 08/25/19 at 16:45; Stop 08/25/19 at 16:46; Status DC Lorazepam (Ativan) 4 mg PRN Q1HR PRN PO For CIWA 8-14; Start 08/25/19 at 18:00; Stop 08/29/19 at 10:53; Status DC Lorazepam (Ativan) 8 mg PRN Q1HR PRN PO For CIWA 15 or greater; Start 08/25/19 at 18:00; Stop 08/29/19 at 10:53; Status DC Lorazepam (Ativan Inj) 2 mg PRN Q1HR PRN IV For CIWA 8-14 Last administered on 08/29/19at 10:04; Start 08/25/19 at 18:00; Stop 08/29/19 at 10:53; Status DC Lorazepam (Ativan Inj) 4 mg PRN Q1HR PRN IV For CIWA 15 or greater Last administered on 08/28/19at 15:41; Start 08/25/19 at 18:00; Stop 08/29/19 at 10:53; Status DC Morphine Sulfate (Morphine Sulfate) 2 mg PRN Q2HR PRN IV MILD PAIN 1-3 Last administered on 08/28/19at 17:15; Start 08/25/19 at 20:30; Stop 08/29/19 at 10:53; Status DC Fentanyl Citrate (Fentanyl 2ml Vial) 75 mcg Q4HRS PRN IV MOD TO SEVERE PAIN Last administered on 08/29/19at 10:01; Start 08/26/19 at 10:30; Stop 08/29/19 at 10:53; Status DC Furosemide (Lasix) 40 mg 1X ONCE IVP Last administered on 08/26/19at 11:36; Start 08/26/19 at 11:00; Stop 08/26/19 at 11:01; Status DC Magnesium Sulfate 50 ml @ 25 mls/hr 1X ONCE IV ; Start 08/26/19 at 11:45; Stop 08/26/19 at 13:44; Status UNV Magnesium Sulfate 50 ml @ 25 mls/hr 1X ONCE IV Last administered on 08/26/19at 13:08; Start 08/26/19 at 11:45; Stop 08/26/19 at 13:44; Status DC Magnesium Sulfate 50 ml @ 25 mls/hr 1X ONCE IV Last administered on 08/27/19at 11:05; Start 08/27/19 at 08:45; Stop 08/27/19 at 10:44; Status DC Sodium Chloride 1,000 ml @ 100 mls/hr Q10H IV ; Start 08/27/19 at 11:15; Stop 08/27/19 at 11:26; Status DC Pantoprazole Sodium (Protonix) 40 mg DAILYAC PO Last administered on 09/01/19 09:01; Start 08/27/19 at 12:30 Influenza Virus Vaccine Quadrival (Afluria Quad 2019-20 (3yr Up) Syringe) 0.5 ml ONCE ONCE VAX IM Last administered on 08/27/19at 20:37; Start 08/27/19 at 21:00; Stop 08/27/19 at 21:01; Status DC Famotidine (Pepcid) 20 mg BID PO Last administered on 08/30/19at 08:41; Start 08/28/19 at 21:00; Stop 08/30/19 at 11:01; Status DC Ferrous Sulfate (Feosol) 325 mg DAILYWBKFT PO Last administered on 08/31/19at 08:15; Start 08/28/19 at 15:00 Folic Acid (Folic Acid) 1 mg DAILY PO Last administered on 09/01/19 09:01; Start 08/28/19 at 15:00 Haloperidol (Haldol) 5 mg BID PO Last administered on 09/01/19 20:33; Start 08/28/19 at 15:00 Olanzapine (ZyPREXA) 5 mg QHS PO Last administered on 09/01/19 20:33; Start 08/28/19 at 21:00 Prazosin HCl (Minipress) 1 mg QHS PO Last administered on 09/01/19 20:33; Start 08/28/19 at 21:00 Sertraline HCl (Zoloft) 50 mg DAILY PO Last administered on 09/01/19 09:00; Start 08/28/19 at 15:00 Trazodone HCl (Desyrel) 100 mg QHS PO Last administered on 08/28/19 20:08; Start 08/28/19 at 21:00; Stop 08/29/19 at 10:53; Status DC Multivitamins (Thera M Plus) 1 tab DAILY PO Last administered on 09/01/19 09:01; Start 08/28/19 at 15:00 Thiamine Mononitrate (Vitamin B-1) 100 mg DAILY PO Last administered on 09/01/19 09:01; Start 08/28/19 at 15:00 Albuterol/ Ipratropium (Duoneb) 3 ml RTQID NEB Last administered on 08/31/19 08:05; Start 08/29/19 at 08:00; Stop 08/31/19 at 08:23; Status DC Potassium Chloride (Klor-Con) 40 meq 1X ONCE PO Last administered on 08/29/19 10:07; Start 08/29/19 at 09:30; Stop 08/29/19 at 09:31; Status DC Magnesium Sulfate 50 ml @ 25 mls/hr 1X ONCE IV Last administered on 08/29/19at 10:08; Start 08/29/19 at 10:00; Stop 08/29/19 at 11:59; Status DC Oxycodone/ Acetaminophen (Percocet 5/325) 1 tab PRN Q4HRS PRN PO PAIN; Start 08/29/19 at 09:30; Stop 08/29/19 at 10:53; Status DC Potassium Chloride (Klor-Con) 20 meq 1X ONCE PO Last administered on 08/29/19at 10:05; Start 08/29/19 at 09:30; Stop 08/29/19 at 09:31; Status DC Trazodone HCl (Desyrel) 50 mg QHS PO Last administered on 09/01/19 20:33; Start 08/29/19 at 11:00 Hydroxyzine HCl (Atarax) 75 mg TID PO Last administered on 08/31/19 08:15; Start 08/29/19 at 14:00; Stop 08/31/19 at 08:23; Status DC Lorazepam (Ativan) 0.5 mg TID PO Last administered on 09/01/19 20:34; Start 08/29/19 at 14:00 Gabapentin (Neurontin) 600 mg TID PO Last administered on 09/01/19 20:33; Start 08/29/19 at 14:00 Oxycodone HCl (Roxicodone) 5 mg PRN Q6HRS PRN PO PAIN Last administered on 02:40; Start 08/29/19 at 11:00; Stop 09/01/19 at 08:11; Status DC Potassium Chloride (Klor-Con) 40 meq 1X ONCE PO Last administered on 08/30/19at 11:38; Start 08/30/19 at 11:30; Stop 08/30/19 at 11:31; Status DC Ketorolac Tromethamine (Toradol 30mg Vial) 30 mg PRN Q6HRS PRN IV PAIN Last administered on 09/02/19 04:28; Start 08/30/19 at 10:30; Stop 09/04/19 at 10:29 Cyclobenzaprine HCl (Flexeril) 5 mg PRN Q8HRS PRN PO MUSCLE SPASMS Last administered on 08/31/19at 12:21; Start 08/30/19 at 20:15; Stop 08/31/19 at 13:12; Status DC Hydroxyzine HCl (Atarax) 75 mg PRN TID PRN PO ITCHING Last administered on 09/01/19 04:32; Start 08/31/19 at 08:30 Cyclobenzaprine HCl (Flexeril) 10 mg PRN Q8HRS PRN PO MUSCLE SPASMS Last administered on 09/02/19 04:28; Start 08/31/19 at 21:00 Potassium Chloride (Klor-Con) 40 meq 1X ONCE PO Last administered on 08/31/19at 13:24; Start 08/31/19 at 13:15; Stop 08/31/19 at 13:16; Status DC Cyclobenzaprine HCl (Flexeril) 5 mg 1X ONCE PO Last administered on 08/31/19at 13:23; Start 08/31/19 at 13:15; Stop 08/31/19 at 13:16; Status DC Oxycodone HCl (Roxicodone) 2.5 mg PRN Q8HRS PRN PO MODERATE TO SEVERE PAIN Last administered on 09/01/19at 19:24; Start 09/01/19 at 08:15 Polyethylene Glycol (miraLAX PACKET) 17 gm DAILY PO ; Start 09/01/19 at 09:00 Magnesium Citrate (Citroma) 296 ml 1X ONCE PO ; Start 09/01/19 at 08:15; Stop 09/01/19 at 08:16; Status DC Bisacodyl (Dulcolax Tab) 5 mg PRN DAILY PRN PO CONSTIPATION; Start 09/01/19 at 10:45 Ziprasidone (Geodon Im) 20 mg 1X ONCE IM Last administered on 09/01/19at 12:29; Start 09/01/19 at 12:15; Stop 09/01/19 at 12:16; Status DC Acetaminophen/ Hydrocodone Bitart (Lortab 10/325) 1 tab 1X ONCE PO Last administered on 09/01/19at 12:29; Start 09/01/19 at 12:30; Stop 09/01/19 at 12 :31; Status DC Active Scripts Active Lorazepam 0.5 Mg Tablet 1 Tab PO TID 7 Days Oxycodone Hcl 5 Mg Capsule 5 Mg PO PRN Q6HRS PRN 10 Days Multivitamins (Multivitamin) 1 Each Tablet 1 Tab PO DAILY Folic Acid 1 Mg Tablet 1 Tab PO DAILY Vitamin B-1 (Thiamine Hcl) 100 Mg Tablet 100 Mg PO DAILY 30 Days Famotidine 20 Mg Tablet 20 Mg PO BID 30 Days Feosol (Ferrous Sulfate) 325 Mg Tablet 325 Mg PO DAILYWBKFT 30 Days Reported Gabapentin 600 Mg Tablet 600 Mg PO TID Haloperidol 5 Mg Tablet 1 Tab PO BID Zyprexa (Olanzapine) 5 Mg Tablet 1 Tab PO QHS Prazosin Hcl 1 Mg Capsule 1 Cap PO QHS Trazodone Hcl 100 Mg Tablet 1 Tab PO QHS Hydroxyzine Hcl 25 Mg Tablet 3 Tab PO TID Zoloft (Sertraline Hcl) 50 Mg Tablet 1 Tab PO DAILY Vitals/I & O Vital Sign - Last 24 Hours 09/01/19 09/01/19 09/01/19 09/01/19 09:00 10:08 11:00 12:29 Temp 98.7 98.7 Pulse 77 Resp 20 B/P (MAP) 132/95 (107) Pulse Ox 95 O2 Delivery Room Air Room Air Room Air Room Air 09/01/19 09/01/19 09/01/19 09/01/19 13:30 15:05 19:21 19:24 Temp 98.4 98.1 98.4 98.1 Pulse 90 67 Resp 20 20 B/P (MAP) 137/83 (101) 135/84 (101) Pulse Ox 96 93 O2 Delivery Room Air Room Air Room Air Room Air 09/01/19 09/01/19 09/01/19 09/01/19 19:40 20:19 20:33 23:00 Temp 98.1 98.1 Pulse 67 70 Resp 18 B/P (MAP) 135/84 124/84 (97) Pulse Ox 92 O2 Delivery Room Air Room Air Room Air 09/02/19 03:00 Temp 98.1 98.1 Pulse 61 Resp 16 B/P (MAP) 143/81 (101) Pulse Ox 95 O2 Delivery Room Air Intake and Output 09/01/19 09/01/19 09/02/19 15:00 23:00 07:00 Intake Total 320 ml 240 ml Balance 320 ml 240 ml BENJIE CHANEL MD Sep 02, 2019 08:53
[2019-09-02] MEDS: POLYETHYLENE GLYCOL 3350 17 GM PACKET. PO SCH (09:00)
--- NOTE | 2019-09-02 09:00 | NUR ---
SW following pt. Spoke with PAT team and OSH is reviewing pt's clinicals and will not have an answer until 1400 today. Will continue to follow.
[2019-09-02] MEDS: FERROUS SULFATE 325 MG TABLET. PO SCH (09:20)
[2019-09-02] MEDS: THIAMINE 100 MG TABLET. PO SCH (09:20)
[2019-09-02] MEDS: FOLIC ACID 1 MG TABLET. PO SCH (09:22)
[2019-09-02] MEDS: LORazepam 0.5 MG TABLET PO SCH ×2 (09:22→13:35)
[2019-09-02] MEDS: GABAPENTIN 300 MG CAPSULE. PO SCH ×2 (09:22→13:35)
[2019-09-02] MEDS: MULTIVITAMIN with MINERAL TABLET. PO SCH (09:22)
[2019-09-02] MEDS: PANTOPRAZOLE 40 MG TABLET.DR. PO SCH (09:22)
[2019-09-02] MEDS: SERTRALINE 50 MG TABLET. PO SCH (09:22)
[2019-09-02] MEDS: HALOPERIDOL 5 MG TABLET. PO SCH (09:23)
[2019-09-02 09:58] VITALS: BP 147/96
--- NOTE | 2019-09-02 10:28 | PDOC ---
Subjective: Subjective: Ate a few bites, just didn't like it - doesn't want anything else right now. Right thigh burning, also abdomen. Stooled yesterday. Objective: Objective: D/w nurse - awaiting acceptance at psych facility/involuntary placement, code [facility] yesterday. Vital Signs: Vital Signs Date Time Temp Pulse Resp B/P (MAP) Pulse Ox O2 Delivery O2 Flow Rate FiO2 09/02/19 09:58 97.9 82 21 147/96 (113) 98 Room Air 97.9 PE: GEN: NAD - 1:1 obs LUNGS: room air ABD: BS+, soft, RUQ discomfort NEURO/PSYCH: A & O 3, calm A/P: Intentional drug overdose Cirrhosis Chronic pain -- Stable from GI standpoint, awaiting discharge. JANET STEWART Sep 02, 2019 10:28
[2019-09-02 10:52] VITALS: BP 147/96
[2019-09-02] MEDS ORDERED: CYCL10TA2 PO (14:38)
[2019-09-02] MEDS ORDERED: IBUP-1007 PO (14:38)
--- NOTE | 2019-09-02 14:40 | SNU/HH DC ---
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 Status: Chronic (4) Portal hypertensive gastropathy Status: Chronic (5) Thrombocytopenia Status: Chronic CONDITION ON DISCHARGE: Stable CODE STATUS: Code Status: Full POST DISCHARGE ORDERS: ACTIVITY ORDERS: Activity as tolerated WEIGHT BEARING STATUS: No restrictions DIET AFTER DISCHARGE: Regular TREATMENT/EQUIPMENT ORDERS: ADAPTIVE EQUIPMENT NEEDED: None DISCHARGE MEDICATIONS: Home Meds Active Scripts Ibuprofen (IBUPROFEN) 600 Mg Tablet, 600 MG PO PRN Q6HRS PRN for INFLAMMATION for 10 Days, #40 TAB Prov:BENJIE CHANEL MD 09/02/19 Cyclobenzaprine Hcl (CYCLOBENZAPRINE HCL) 10 Mg Tablet, 10 MG PO PRN Q8HRS PRN for MUSCLE SPASMS for 30 Days, #30 TAB Prov:BENJIE CHANEL MD 09/02/19 Lorazepam (LORAZEPAM) 0.5 Mg Tablet, 1 TAB PO TID for dt for 7 Days, #21 TAB Prov:KIMBERLYN CURRIE MD 07/07/19 Multivitamin (MULTIVITAMINS) 1 Each Tablet, 1 TAB PO DAILY for liver, #90 TAB 3 Refills Prov:KIMBERLYN CURRIE MD 07/07/19 Folic Acid (FOLIC ACID) 1 Mg Tablet, 1 TAB PO DAILY for liver, #90 TAB 1 Refill Prov:KIMBERLYN CURRIE MD 07/07/19 Thiamine Hcl (VITAMIN B-1) 100 Mg Tablet, 100 MG PO DAILY for liver for 30 Days, #30 TAB Prov:KIMBERLYN CURRIE MD 07/07/19 Famotidine (FAMOTIDINE) 20 Mg Tablet, 20 MG PO BID for 30 Days, #60 TAB Prov:YAYA MORTENSEN MD 06/24/17 Ferrous Sulfate (FEOSOL) 325 Mg Tablet, 325 MG PO DAILYWBKFT for 30 Days, #30 TAB Prov:YAYA MORTENSEN MD 06/24/17 Reported Medications Gabapentin (GABAPENTIN) 600 Mg Tablet, 600 MG PO TID for NEUROGENIC PAIN, TAB 08/21/19 Haloperidol (HALOPERIDOL) 5 Mg Tablet, 1 TAB PO BID for Anxiety, TAB 08/20/19 Olanzapine (ZYPREXA) 5 Mg Tablet, 1 TAB PO QHS for Anxiety, TAB 08/20/19 Prazosin Hcl (PRAZOSIN HCL) 1 Mg Capsule, 1 CAP PO QHS for anxiety/depression, #30 CAP 2 Refills 08/18/19 Trazodone Hcl (TRAZODONE HCL) 100 Mg Tablet, 1 TAB PO QHS for insomnia, TAB 08/18/19 Hydroxyzine Hcl (HYDROXYZINE HCL) 25 Mg Tablet, 3 TAB PO TID for anxiety, TAB 08/18/19 Sertraline Hcl (ZOLOFT) 50 Mg Tablet, 1 TAB PO DAILY for antidepressant, TAB 08/18/19 Discontinued Scripts Oxycodone Hcl (OXYCODONE HCL) 5 Mg Capsule, 5 MG PO PRN Q6HRS PRN for PAIN for 10 Days, #40 TAB 0 Refills Prov:KIMBERLYN CURRIE MD 07/07/19 BENJIE CHANEL MD Sep 02, 2019 14:40
--- NOTE | 2019-09-02 15:20 | NUR ---
CARLOS following pt. Pt has been accepted at OSH. CARLOS arranged transport via [facility]. Packet on chart and discussed with RN, Physician.
--- NOTE | 2019-09-02 16:36 | PDOC3 ---
Discharge Summary Visit Information Date of Admission: Aug 24, 2019 Date of Discharge: Sep 02, 2019 Admitting Diagnosis: Suicide attempt Final Diagnosis Problems Medical Problems: (1) Aggressive behavior Status: Acute (2) Alcohol intoxication Status: Acute (3) Esophageal varices in cirrhosis Status: Chronic (4) Portal hypertensive gastropathy Status: Chronic (5) Thrombocytopenia Status: Chronic Brief Hospital Course Allergies Allergies Coded Allergies Type Severity Reaction Last Updated Verified No Known Drug Allergies 06/25/17 No Vital Signs Vital Signs Date Time Temp Pulse Resp B/P (MAP) Pulse Ox O2 Delivery O2 Flow Rate FiO2 09/02/19 10:52 97.9 82 18 147/96 (113) 98 Room Air 97.9 Brief Hospital Course Mr Dsouza is a 29-year-old male who has history of schizophrenia?, history of previous suicidal attempts, history of alcohol abuse, DJD, and h/o alpha-1 antitrypsin deficiency. He was brought into the hospital after he took a handful of gabapentin and Zoloft. Exact quantity is unknown. He was intubated in the Emergency Room and extubated on 08/25/19. Seen by pulmonary/critical care in consultation. 08/29: Asking for more pain meds when he is on a lot and actually very sleepy, Sitter at bedside bec of SI. Slated for psych bed but had some medical issues over the weekend and also no bed avail. K and mag low on friday (not addressed) 08/31: Off O2 overnight. Cough improved. This morning he is sleeping. Upon awakening him he is stating his has acute on chronic bandlike abdominal pain, is requesting an EGD from GI and for me to add back IV fentanyl and increase his oxycodone dosing. Added flexeril and physical therapy. When asked what he does at home for pain he tells me he drinks alcohol until the pain goes away and he passes out. I have advised him I am worried about unintentional overdose from polypharmacy and in response he states, "So I should use a knife when I go home?" I ask if he is still suicidal and he tells me after talking with me he is still suicidal today and would attempt suicide to make it "quicker" next time. He is asking for pain medication to help him sleep. After I left the room he has asked his 12-01 sitter to contact the PAT team so that he can go home. 10/1: Pain is better controlled today. LFTs improved. Potassium normalized. Nebulizer treatments stopped. He was ambulating with PT with no difficulties. No SOB or CP. He tells me if he were to leave today he would go drink alcohol heavily until he didn't wake up. 09/01: Today patient is asking for IV fentanyl and IV morphine states his pain is worse. He states the IV toradol is not working and the flexeril is not working either. I have advised him I am concerned about requests for IV pain medications given the fact that he was recently on the ventilator and had hypoxia that improved after discontinuation of IV pain medications. He is insistent he leave if I do not provide IV pain medications. He states he does not remember telling me that he was going to cut his wrists with a knife or drink himself to , states he was hallucinating. He does state he knows he was admitted because he tried to kill himself. He states he will not kill himself, but does state that he will go home and drink again and take his prescription for oxycodone 10mg at home. I have offered him 10mg hydrocodone and IM geodon to which he is amenable. He has become combative with me and I have contacted security and advised him to stay in the hospital until he is seen by the [facility] att[facility]. After geodon he is more calm, collected. He is anxious about going to inpatient psych and is asking for hydrocodone. I have counseled him low dose NSAIDs are the only pain medication he will be taking. He is open to getting treatment for his addictions. I have d/w psych at [place]. Consultants: Pulm/Critical Care and GI Assessment: EtOH abuse - with acute intoxication on admission Suicide attempt - waiting for psych bed Chronic pain Hypomagnesemia Hypokalemia LEg pains poss neuropathy Concentrated urine resolved Pancytopenia - likely from heavy ETOH use, possibly from medications as well. Unknown hep c and HIV status Acute respiratory failure secondary to acute toxic and metabolic encephalopathy - resolved, extubated 08/25 PLAN: Oral pain medications - nsaids Resumed home gabapentin Cont psych meds He is medically cleared for d/c now Greater than 30 minutes spent on discharge. Discharge Information Condition at Discharge: Improved Follow Up: Weeks (1) Disposition/Orders: D/C to Another Facility Scheduled Famotidine (Famotidine) 20 Mg Tablet, 20 MG PO BID for 30 Days, #60 Prescribed by: YAYA MORTENSEN MD on 06/24/17 1218 Last Action: Continued on 08/28/191437 by KORY CRAIG MD Ferrous Sulfate (Feosol) 325 Mg Tablet, 325 MG PO DAILYWBKFT for 30 Days, #30 Prescribed by: YAYA MORTENSEN MD on 06/24/17 1218 Last Action: Continued on 08/28/191437 by KORY CRAIG MD Folic Acid (Folic Acid) 1 Mg Tablet, 1 TAB PO DAILY for liver, #90 Ref 1 Prescribed by: KUSH SOFIA on 07/07/191125 Last Action: Continued on 08/28/191437 by KORY CRAIG MD Gabapentin (Gabapentin) 600 Mg Tablet, 600 MG PO TID for NEUROGENIC PAIN, (Reported) Entered as Reported by: HANK JOHN on 08/21/19 0204 Last Action: Converted on 08/29/19 105 by SONAL SANDS Haloperidol (Haloperidol) 5 Mg Tablet, 1 TAB PO BID for Anxiety, (Reported) Entered as Reported by: HANK JOHN on 08/20/19 210 Last Action: Continued on 08/28/191437 by KORY CRAIG MD Hydroxyzine Hcl (Hydroxyzine Hcl) 25 Mg Tablet, 3 TAB PO TID for anxiety, (Reported) Entered as Reported by: AIME TOMPKINS RN on 08/18/19 1715 Last Action: Continued on 08/29/19 105 by SONAL SANDS Lorazepam (Lorazepam) 0.5 Mg Tablet, 1 TAB PO TID for dt for 7 Days, #21 Prescribed by: KUSH SOFIA on 07/07/19 1129 Last Action: Continued on 08/29/19 105 by SONAL SANDS Multivitamin (Multivitamins) 1 Each Tablet, 1 TAB PO DAILY for liver, #90 Ref 3 Prescribed by: KUSH SOFIA on 07/07/19 1126 Last Action: Converted on 08/28/191437 by KORY CRAIG MD Olanzapine (Zyprexa) 5 Mg Tablet, 1 TAB PO QHS for Anxiety, (Reported) Entered as Reported by: HANK JOHN on 08/20/19 2100 Last Action: Continued on 08/28/19 143 by KORY CRAIG MD Prazosin Hcl (Prazosin Hcl) 1 Mg Capsule, 1 CAP PO QHS for anxiety/depression, #30 Ref 2 (Reported) Entered as Reported by: AIME TOMPKINS RN on 08/18/191714 Last Action: Continued on 08/28/191437 by KORY CRAIG MD Sertraline Hcl (Zoloft) 50 Mg Tablet, 1 TAB PO DAILY for antidepressant, (Reported) Entered as Reported by: AIME TOMPKINS RN on 08/18/191714 Last Action: Continued on 08/28/191437 by KORY CRAIG MD Thiamine Hcl (Vitamin B-1) 100 Mg Tablet, 100 MG PO DAILY for liver for 30 Days, #30 Prescribed by: KUSH SOFIA on 07/07/191125 Last Action: Converted on 08/28/191437 by KORY CRAIG MD Trazodone Hcl (Trazodone Hcl) 100 Mg Tablet, 1 TAB PO QHS for insomnia, (Reported) Entered as Reported by: AIME TOMPKINS RN on 08/18/191714 Last Action: Continued on 08/28/191437 by KORY CRAIG MD Scheduled PRN Cyclobenzaprine Hcl (Cyclobenzaprine Hcl) 10 Mg Tablet, 10 MG PO PRN Q8HRS PRN for MUSCLE SPASMS for 30 Days, #30 Prescribed by: BENJIE CHANEL MD on 09/02/19 1438 Ibuprofen (Ibuprofen) 600 Mg Tablet, 600 MG PO PRN Q6HRS PRN for INFLAMMATION for 10 Days, #40 Prescribed by: BENJIE CHANEL MD on 09/02/19 1438 Discontinued Medications Oxycodone Hcl (Oxycodone Hcl) 5 Mg Capsule, 5 MG PO PRN Q6HRS PRN for PAIN for 10 Days, #40 Ref 0 Prescribed by: KUSH SOFIA on 07/07/191128 Last Action: Converted on 08/29/19 1052 by BENJIE KANG MD Sep 02, 2019 16:36
--- NOTE | 2019-09-02 16:37 | NUR ---
Discharge Note: Patient was discharged to inpatient psych OSH. Patient known of discharge plans. Called and report give via phone to DENNIS Pablo. Patient was transported via [facility] with all personal belongings.
== END 2019-09-02 16:00 | DRG 917 ==
LOC: ER 23:52 → 1 WEST ICU 08-24 02:09 → 5 SOUTH 08-26 16:24
PROVIDERS: ADMIT Internal Medicine; ATTEND Internal Medicine
PROC: 5A1945Z Respiratory Ventilation, 24-96 Consecutive Hours (ICD-10-PCS; principal; 2019-08-24)
PROC: 0BH17EZ Insertion of Endotracheal Airway into Trachea, Via Natural or Artificial Opening (ICD-10-PCS; 2019-08-24)
DX: T42.6X2A Poisoning by other antiepileptic and sedative-hypnotic drugs, intentional self-harm, initial encounter (principal); J96.00 Acute respiratory failure, unspecified whether with hypoxia or hypercapnia; G92 Toxic encephalopathy; D61.818 Other pancytopenia; I85.10 Secondary esophageal varices without bleeding; J98.11 Atelectasis; K76.6 Portal hypertension; N39.0 Urinary tract infection, site not specified; I85.00 Esophageal varices without bleeding; D75.89 Other specified diseases of blood and blood-forming organs; E83.42 Hypomagnesemia; E87.6 Hypokalemia; F10.129 Alcohol abuse with intoxication, unspecified; F17.210 Nicotine dependence, cigarettes, uncomplicated; F20.9 Schizophrenia, unspecified; Y92.89 Other specified places as the place of occurrence of the external cause; G89.29 Other chronic pain; I50.9 Heart failure, unspecified; K21.9 Gastro-esophageal reflux disease without esophagitis; K31.89 Other diseases of stomach and duodenum; K70.10 Alcoholic hepatitis without ascites; K74.60 Unspecified cirrhosis of liver; R04.0 Epistaxis; Z82.49 Family history of ischemic heart disease and other diseases of the circulatory system; Z91.5 Personal history of self-harm; Y90.7 Blood alcohol level of 200-239 mg/100 ml; F32.9 Major depressive disorder, single episode, unspecified; M19.90 Unspecified osteoarthritis, unspecified site
CPT/HCPCS: 31500; 36415; 36600; 51702; 71045; 80048; 80053; 80076; 80307; 80329; 81001; 82550; 82805; 82962; 83735; 84132; 85025; 87086; 90471; 90686; 93005; 94002; 94003; 94640; 94760; C9113; G0480; J0330; J1885; J1940; J2060; J2250; J2270; J2704; J3010; J3475; J3486; J7030; J7620; 97116; 99285-25; G0378

== ENCOUNTER 2019-09-10 13:57 | Inpatient (IN) | payer MEDICAID ==
[~2019-09-10] VITALS: Ht 180.3 cm; Wt 101.6 kg
[~2019-09-10 13:57] MED LIST changes: +CYCL10TA2 PO; +IBUP-1007 PO
[2019-09-10] MEDS ORDERED: ZIPRASIDONE IM 20 MG VIAL. IM ONE (14:00)
[2019-09-10] MEDS ORDERED: KETAMINE HCL IN NACL, ISO-OSM 50 MG/5 ML SYRINGE IV ONE (14:30)
[2019-09-10 14:40] LABS: BASO # 0.2 x10^3/uL (0.0-0.2); BASO % 1 % (0-3); EOS # 0.1 x10^3/uL (0.0-0.7); EOS % 1 % (0-3); HEMATOCRIT 49.1 % (39.0-53.0); HEMOGLOBIN 16.8 g/dL (13.0-17.5); LYMPH % 17 % (24-48); MEAN CORPUSCULAR HEMOGLOBIN 34 pg (25-35); MEAN CORPUSCULAR HGB CONC 34 g/dL (31-37); MEAN CORPUSCULAR VOLUME 100 fL (79-100); MONO # 0.5 x10^3/uL (0.0-1.1); MONO % 4 % (0-9); NEUT # 9.2 x10^3/uL (1.8-7.7); NEUT % 77 % (31-73); PLATELET COUNT 256 x10^3/uL (140-400); RED CELL DISTRIBUTION WIDTH 15.6 % (11.5-14.5)
--- NOTE | 2019-09-10 14:45 | PHYS DOC ---
Past Medical History Past Medical History: Depression, Schizophrenia, Other Additional Past Medical Histor: TACHYCARDIA, alpha 1 antitrypsin deficiency, DDD Past Surgical History: No Surgical History Alcohol Use: Heavy Drug Use: None Adult General Chief Complaint Chief Complaint: MANIC BEHAVIOR HPI HPI 29-year-old male well known to the emergency department presents to the ER with behavioral complaints. Patient was recently discharged from [facility] approximately 3 days ago, mother called EMS today for agitation, violent behavior. Patient has underlying Haldol however mother states she is unable to find prescription. He as well has been drinking alcohol today. Patient with recurrent suicidal ideation. Patient with police escort upon arrival given agitated behavior. Patient yelling and received 4 point restraints on arrival with security at bedside. Unable to perform ROS given agitation Review of Systems Review of Systems See Above Current Medications Current Medications Current Medications Medications (Trade) Dose Ordered Sig/Renee Start Time Stop Time Status Last Admin Dose Admin Ketamine HCl (Ketamine) 11 mg 1X ONCE 09/10/19 14:30 09/10/19 14:31 DC Sodium Chloride 1,000 ml @ 1,000 mls/hr 1X ONCE 09/10/19 15:15 09/10/19 16:14 09/10/19 15:10 1,000 MLS/HR Ziprasidone (Geodon Im) 20 mg 1X ONCE 09/10/19 14:00 09/10/19 14:07 DC 09/10/19 14:21 20 MG Allergies Allergies Allergies Coded Allergies Type Severity Reaction Last Updated Verified No Known Drug Allergies 06/25/17 No Physical Exam Physical Exam See Above Constitutional: Agitated, intoxicated HENT: Normocephalic, atraumatic, bilateral external ears normal, oropharynx moist, no oral exudates, nose normal. [] Eyes: Pupils dilated and reactive , EOMI, conjunctiva normal, no discharge. [] Cardiovascular: tachycardia Lungs & Thorax: Bilateral breath sounds clear to auscultation [] Abdomen: Bowel sounds normal, soft, no tenderness, no masses, no pulsatile masses. [] Skin: Warm, dry, no erythema, no rash. [] Extremities: No tenderness, no cyanosis, no clubbing, ROM intact, no edema. [] Neurologic: Alert and oriented X 3, no focal deficits noted. [] Psychologic: Agitated, intoxicated Current Patient Data Vital Signs Vital Signs Date Time Temp Pulse Resp B/P (MAP) Pulse Ox O2 Delivery O2 Flow Rate FiO2 09/10/19 13:58 99.0 136 30 160/83 (108) 96 Room Air 99.0 Lab Values Laboratory Tests Test 09/10/19 14:30 White Blood Count 12.0 x10^3/uL (4.0-11.0) H Red Blood Count 4.90 x10^6/uL (4.30-5.70) Hemoglobin 16.8 g/dL (13.0-17.5) Hematocrit 49.1 % (39.0-53.0) Mean Corpuscular Volume 100 fL (79-100) Mean Corpuscular Hemoglobin 34 pg (25-35) Mean Corpuscular Hemoglobin Concent 34 g/dL (31-37) Red Cell Distribution Width 15.6 % (11.5-14.5) H Platelet Count 256 x10^3/uL (140-400) Neutrophils (%) (Auto) 77 % (31-73) H Lymphocytes (%) (Auto) 17 % (24-48) L Monocytes (%) (Auto) 4 % (0-9) Eosinophils (%) (Auto) 1 % (0-3) Basophils (%) (Auto) 1 % (0-3) Neutrophils # (Auto) 9.2 x10^3/uL (1.8-7.7) H Lymphocytes # (Auto) 2.0 x10^3/uL (1.0-4.8) Monocytes # (Auto) 0.5 x10^3/uL (0.0-1.1) Eosinophils # (Auto) 0.1 x10^3/uL (0.0-0.7) Basophils # (Auto) 0.2 x10^3/uL (0.0-0.2) Sodium Level 143 mmol/L (136-145) Potassium Level 3.9 mmol/L (3.5-5.1) Chloride Level 103 mmol/L (98-107) Carbon Dioxide Level 22 mmol/L (21-32) Anion Gap 18 (6-14) H Blood Urea Nitrogen 6 mg/dL (8-26) L Creatinine 0.7 mg/dL (0.7-1.3) Estimated GFR (Cockcroft-Gault) 133.3 BUN/Creatinine Ratio 9 (6-20) Glucose Level 124 mg/dL (70-99) H Calcium Level 8.9 mg/dL (8.5-10.1) Total Bilirubin 2.8 mg/dL (0.2-1.0) H Aspartate Amino Transferase (AST) 398 U/L (15-37) H Alanine Aminotransferase (ALT) 315 U/L (16-63) H Alkaline Phosphatase 303 U/L (46-116) H Total Protein 9.1 g/dL (6.4-8.2) H Albumin 3.8 g/dL (3.4-5.0) Albumin/Globulin Ratio 0.7 (1.0-1.7) L Salicylates Level < 0.2 mg/dL (2.8-20.0) L Salicylate Last Dose Date Unk Salicylate Last Dose Time Unk Acetaminophen Level < 2.0 mcg/ml (10-30) L Acetaminophen Last Dose Date Unh Acetaminophen Last Dose Time Unk Ethyl Alcohol Level 358 mg/dL (0-10) H Laboratory Tests 09/10/19 14:30 Laboratory Tests 09/10/19 14:30 EKG EKG [] Radiology/Procedures Radiology/Procedures [] Course & Med Decision Making Course & Med Decision Making Pertinent Labs and Imaging studies reviewed. (See chart for details) [] 29-year-old male well known to the emergency department presents to the ER with behavioral complaints. Patient was recently discharged from [facility] approximately 3 days ago, mother called EMS today for agitation, violent behavior. Patient has underlying Haldol however mother states she is unable to find prescription. He as well has been drinking alcohol today. Patient with recurrent suicidal ideation. Patient with police escort upon arrival given agitated behavior. Patient yelling and received 4 point restraints on arrival with security at bedside. Labs reviewed, alcohol 358, AST, ALT chronically elevated 390s. Patient has WBC levation 12.0 without acute infectious process. Patient has history of SI in the past. He received 20 mg IM of Geodon in the emergency department and has been resting comfortably since. Discussed admission to the hospital with hospitalist, plan for PAT assessment. Patient will need one-to-one. Dragon Disclaimer Dragon Disclaimer This electronic medical record was generated, in whole or in part, using a voice recognition dictation system. Departure Departure Impression: Primary Impression: Alcohol intoxication Additional Impressions: Suicidal ideation Aggressive behavior Disposition: 09 ADMITTED INPATIENT Admitting Physician: LEE Condition: GUARDED Referrals: UNKNOWN PCP NAME (PCP) Problem Qualifiers Primary Impression: Alcohol intoxication Complication of substance-induced condition: with unspecified complication Qualified Codes: F10.929 - Alcohol use, unspecified with intoxication, unspecified IRMA COOPER MD Sep 10, 2019 14:45
[2019-09-10 15:01] LABS: CALCIUM 8.9 mg/dL (8.5-10.1); CREATININE 0.7 mg/dL (0.7-1.3); GFR 133.3; POTASSIUM 3.9 mmol/L (3.5-5.1)
[2019-09-10 15:06] LABS: ALBUMIN 3.8 g/dL (3.4-5.0); ALBUMIN/GLOBULIN RATIO 0.7 (1.0-1.7); TOTAL BILIRUBIN 2.8 mg/dL (0.2-1.0); TOTAL PROTEIN 9.1 g/dL (6.4-8.2)
[2019-09-10 15:12] LABS: ETHANOL 358 mg/dL (0-10)
[2019-09-10 15:13] LABS: ACETAMIN < 2.0 mcg/ml (10-30); SALIC < 0.2 mg/dL (2.8-20.0)
[2019-09-10] MEDS ORDERED: IV NORMAL SALINE 1000ML BAG 1,000 ML IV ONE (15:15)
[2019-09-10 17:39] VITALS: BP 98/60
[2019-09-10] MEDS ORDERED: diphenhydrAMINE 50 MG/ML VIAL IVP PRN (18:30)
[2019-09-10] MEDS ORDERED: cloNIDine HCL 0.1 MG TABLET PO PRN (18:30)
[2019-09-10] MEDS ORDERED: LORazepam 1 MG TABLET PO PRN ×2 (18:30)
[2019-09-10] MEDS ORDERED: chlordiazePOXIDE HCL 25 MG CAPSULE PO PRN (18:30)
[2019-09-10] MEDS ORDERED: HALOPERIDOL LACTATE 5 MG/ML VIAL. IVP PRN (18:30)
--- NOTE | 2019-09-10 18:47 | HP ---
ADMIT DATE: 09/10/2019 CHIEF COMPLAINT: Suicide attempt. HISTORY OF PRESENT ILLNESS: The patient is a pleasant 29-year-old male who has a long history of suicide attempts and schizophrenia. He just got out of [place]. We just discharged him a few weeks ago with a suicide attempt. He has had multiple suicide attempts in his life. This time, he took Haldol and drank some alcohol. I discussed the case with ER physician. We are going to admit the patient and consult the Psychiatric Assessment Team. PAST MEDICAL HISTORY: Numerous suicide attempts, depression, schizophrenia, tachycardia. ALLERGIES: None. FAMILY HISTORY: Hypertension. SOCIAL HISTORY: He drinks, smokes and takes drugs. MEDICATIONS: Reviewed, please refer to the MRAD. REVIEW OF SYSTEMS: GENERAL: No history of weight change, weakness or fevers. SKIN: No bruising, hair changes or rashes. EYES: No blurred, double or loss of vision. NOSE AND THROAT: No history of nosebleeds, hoarseness or sore throat. HEART: No history of palpitations, chest pain or shortness of breath on exertion. LUNGS: Denies cough, hemoptysis, wheezing or shortness of breath. GASTROINTESTINAL: Denies changes in appetite, nausea, vomiting, diarrhea or constipation. GENITOURINARY: No history of frequency, urgency, hesitancy or nocturia. NEUROLOGIC: Denies history of numbness, tingling, tremor. He complains of weakness. PSYCHIATRIC: No history of panic, anxiety or depression. ENDOCRINE: No history of heat or cold intolerance, polyuria or polydipsia. EXTREMITIES: Denies muscle weakness, joint pain, pain on walking or stiffness. PHYSICAL EXAMINATION: VITALS: Within normal limits and are stable. GENERAL: No apparent distress. Alert and oriented. HEENT: Head is normocephalic, atraumatic, pupils were equally round and reactive to light and accommodation. He has got some abrasions on his face. NECK: Supple, no JVD, no thyromegaly was noted. LUNGS: Clear to auscultation in all lung topete without rhonchi or wheezing. HEART: RRR, S1, S2 present. Peripheral pulses intact, no obvious murmurs were noted. ABDOMEN: Soft, nontender. Positive bowel sounds no organomegaly, normal bowel sounds. EXTREMITIES: Without any cyanosis, clubbing, or edema. Pedal pulses intact, Homans sign is negative. NEUROLOGIC: Normal speech, normal tone. A & O x3, moves all extremities, no obvious focal deficits. He is quite weak, but he is asking for pain meds, seems depressed. PSYCHIATRIC: Normal affect, normal mood. Stable. SKIN: No ulcerations or rashes, good skin turgor, no jaundice. VASCULAR: Good capillary refill, neurovascular bundle appears to be intact. LABORATORY DATA: White count is 12. Electrolytes are normal other than an anion gap of 18. Drug screen positive for alcohol at 350. ASSESSMENT AND PLAN: Suicide attempt with Haldol and alcohol. The patient is being admitted with 1:1 observation. Consult the Psychiatric Assessment Team. IV fluids. We will try to resume his home meds. Full code. DVT prophylaxis. [facility] protocol. LONG-TERM PROGNOSIS: Guarded. ALISON VELÁSQUEZ DO DR: FRANKIE/alysia JOB#: [id number] / [id number]
[2019-09-10 19:00] VITALS: BP 130/76
[2019-09-10 23:00] VITALS: BP 134/88
[2019-09-11] MEDS: BUTORPHANOL 2 MG/ML VIAL. IV PRN ×4 (02:15→20:15)
--- NOTE | 2019-09-11 02:31 | NUR ---
Pt. started to become very sweaty after he was given stadol IV. Vitals were taken and were WNL besides some tachycardia that was there before he became sweaty. Pharmacy was called to verify any side effects and pharmacist stated there shouldn't be anything to worry about if it is just sweat or beading. Pt. was asked to let his 1:1 [employer] Phil and this nurse know if he starts to feel itchy, breaks out in hives or feels like his throat is closing. This nurse will continue to monitor pt. for any adverse side effects.
[2019-09-11 03:00] VITALS: BP 145/87
[2019-09-11 03:41] LABS: BASO # 0.1 x10^3/uL (0.0-0.2); BASO % 1 % (0-3); EOS # 0.1 x10^3/uL (0.0-0.7); EOS % 1 % (0-3); HEMATOCRIT 44.5 % (39.0-53.0); HEMOGLOBIN 15.5 g/dL (13.0-17.5); LYMPH # 2.1 x10^3/uL (1.0-4.8); LYMPH % 22 % (24-48); MEAN CORPUSCULAR HEMOGLOBIN 34 pg (25-35); MEAN CORPUSCULAR HGB CONC 35 g/dL (31-37); MEAN CORPUSCULAR VOLUME 99 fL (79-100); MONO # 0.8 x10^3/uL (0.0-1.1); MONO % 8 % (0-9); NEUT # 6.5 x10^3/uL (1.8-7.7); NEUT % 68 % (31-73); PLATELET COUNT 181 x10^3/uL (140-400); RED BLOOD COUNT 4.51 x10^6/uL (4.30-5.70); RED CELL DISTRIBUTION WIDTH 15.6 % (11.5-14.5); WHITE BLOOD COUNT 9.6 x10^3/uL (4.0-11.0)
[2019-09-11 04:24] LABS: ALBUMIN 3.4 g/dL (3.4-5.0); ALBUMIN/GLOBULIN RATIO 0.7 (1.0-1.7); CALCIUM 8.9 mg/dL (8.5-10.1); CREATININE 0.6 mg/dL (0.7-1.3); GFR 159.3; POTASSIUM 3.6 mmol/L (3.5-5.1); TOTAL BILIRUBIN 2.7 mg/dL (0.2-1.0); TOTAL PROTEIN 8.2 g/dL (6.4-8.2)
[2019-09-11] MEDS: ONDANSETRON PF 4 MG/2 ML VIAL. IV PRN ×2 (05:18→08:32)
[2019-09-11 07:25] VITALS: BP 148/93
[2019-09-11] MEDS ORDERED: THIAMINE INJ 100 MG in IV DEXTROSE 5% 50 ML IV SCH (09:00)
[2019-09-11] MEDS: MULTIVIT INFUSN,ADULT 4,VIT K 10 ML, THIAMINE INJ 100 MG, FOLIC ACID INJ 1 MG in IV NOR... IV SCH (09:23)
--- NOTE | 2019-09-11 09:30 | PDOC ---
PROGRESS NOTES Chief Complaint Chief Complaint SEEN IN ER with behavioral complaints. Patient was recently discharged from [facility] approximately 3 days ago, mother called EMS for agitation, violent behavior. History of Present Illness History of Present Illness ASSESSMENT Suicide attempt with Haldol and alcohol. FALL, ABRASION LEFT forehead major depression Suicide attempt - waiting for psych bed Chronic pain Hypomagnesemia Hypokalemia LEG pain// poss neuropathy schizophrenia, history of alpha-1 antitrypsin deficiency, DJD, heavy alcohol abuse, SEVERE Hepatic cirrhosis and findings of portal hypertension , END ORGAN INJURY Esophageal varices are numerous and more notable in the interval. ON RECENT CT admitted 1:1 observation. Consult Psychiatric Assessment Team. IV fluids. home meds. Full code. DVT prophylaxis. CIWA protocol. gi CONSULT ABDOMINAL SONO ACUTE hepatitis dx panel hold hepatotoxic drugs inr follow LFT'S UNSAFE DISCHARGE AT THIS TIME SERUM AMMONIA tsh POOR PROGNOSIS d/w RN and PAT TEAM 38 MIN PT EXAM, CHART REVIEW, > 50% OF time spent with exam, chart review, pt care coordination Vitals Vitals Vital Signs Date Time Temp Pulse Resp B/P (MAP) Pulse Ox O2 Delivery O2 Flow Rate FiO2 09/11/19 09:05 17 Room Air 09/11/19 03:00 98.2 116 145/87 (106) 91 98.2 Physical Exam Physical Exam HEENT: Head is normocephalic, atraumatic, pupils were equally round and reactive to light and accommodation. He has got some abrasions on his face. NECK: Supple, no JVD, no thyromegaly was noted. LUNGS: Clear to auscultation in all lung topete without rhonchi or wheezing. HEART: RRR, S1, S2 present. Peripheral pulses intact, no obvious murmurs were noted. ABDOMEN: Soft, nontender. Positive bowel sounds no organomegaly, normal bowel sounds. EXTREMITIES: Without any cyanosis, clubbing, or edema. Pedal pulses intact, Homans sign is negative. NEUROLOGIC: Normal speech, normal tone. A & O x3, moves all extremities, no obvious focal deficits. He is quite weak, but he is asking for pain meds, seems depressed. PSYCHIATRIC: Normal affect, normal mood. Stable. SKIN: No ulcerations or rashes, good skin turgor, no jaundice. VASCULAR: Good capillary refill, neurovascular bundle appears to be intact. General: Alert, Oriented X3, Cooperative, No acute distress, Other (MILD TREMOR) Heart: Regular rate, Normal S1 Lungs: Clear Abdomen: Soft Extremities: No cyanosis Labs LABS Examination: CT ABD PELV W/ IV CONTRST ONLY History: Abdominal pain, epigastric pain, alcoholism Comparison/Correlation: 06/21/2017 CT abdomen, chest, and pelvis with contrast Findings: Axial images of the abdomen and pelvis were obtained following IV contrast. Visualized lung bases are clear. Significant varices about the esophagus. Hiatal hernia is present. Nodular contour of the liver compatible with cirrhosis. 2.3 cm diameter calculus is present at the gallbladder neck. Distention of the gallbladder is noted slightly more than on prior exam. Splenomegaly is present with the spleen measuring 14.5 cm longitudinal. Varices involving the upper abdomen noted. Pancreas is unremarkable. No definite ascites. No enlarged abdominal or pelvic lymph nodes. Kidneys are unremarkable. Circumferential wall thickening of the colon is present diffusely. No extraluminal gas. No bowel obstruction. Urinary bladder is unremarkable as noted. The appendix is normal. Bony structures are unremarkable. Impression: Hiatal hernia. Hepatic cirrhosis and findings of portal hypertension including. Esophageal varices are numerous and more notable in the interval. Circumferential wall thickening of the colon concern for colitis. No significant surrounding stranding however no bowel obstruction. Cholelithiasis. Distention of the gallbladder. No biliary dilatation or inflammatory change about the gallbladder. PQRS Compliance Statement: One or more of the following individualized dose reduction techniques were utilized for this examination: 1. Automated exposure control 2. Adjustment of the mA and/or kV according to patient size 3. Use of iterative reconstruction technique Electronically signed by: Aleks Garg MD (08/17/2019 8:49 PM) [facility] Laboratory Tests Test 09/10/19 14:30 09/11/19 03:00 White Blood Count 12.0 x10^3/uL (4.0-11.0) 9.6 x10^3/uL (4.0-11.0) Red Blood Count 4.90 x10^6/uL (4.30-5.70) 4.51 x10^6/uL (4.30-5.70) Hemoglobin 16.8 g/dL (13.0-17.5) 15.5 g/dL (13.0-17.5) Hematocrit 49.1 % (39.0-53.0) 44.5 % (39.0-53.0) Mean Corpuscular Volume 100 fL (79-100) 99 fL (79-100) Mean Corpuscular Hemoglobin 34 pg (25-35) 34 pg (25-35) Mean Corpuscular Hemoglobin Concent 34 g/dL (31-37) 35 g/dL (31-37) Red Cell Distribution Width 15.6 % (11.5-14.5) 15.6 % (11.5-14.5) Platelet Count 256 x10^3/uL (140-400) 181 x10^3/uL (140-400) Neutrophils (%) (Auto) 77 % (31-73) 68 % (31-73) Lymphocytes (%) (Auto) 17 % (24-48) 22 % (24-48) Monocytes (%) (Auto) 4 % (0-9) 8 % (0-9) Eosinophils (%) (Auto) 1 % (0-3) 1 % (0-3) Basophils (%) (Auto) 1 % (0-3) 1 % (0-3) Neutrophils # (Auto) 9.2 x10^3/uL (1.8-7.7) 6.5 x10^3/uL (1.8-7.7) Lymphocytes # (Auto) 2.0 x10^3/uL (1.0-4.8) 2.1 x10^3/uL (1.0-4.8) Monocytes # (Auto) 0.5 x10^3/uL (0.0-1.1) 0.8 x10^3/uL (0.0-1.1) Eosinophils # (Auto) 0.1 x10^3/uL (0.0-0.7) 0.1 x10^3/uL (0.0-0.7) Basophils # (Auto) 0.2 x10^3/uL (0.0-0.2) 0.1 x10^3/uL (0.0-0.2) Sodium Level 143 mmol/L (136-145) 143 mmol/L (136-145) Potassium Level 3.9 mmol/L (3.5-5.1) 3.6 mmol/L (3.5-5.1) Chloride Level 103 mmol/L (98-107) 105 mmol/L (98-107) Carbon Dioxide Level 22 mmol/L (21-32) 25 mmol/L (21-32) Anion Gap 18 (6-14) 13 (6-14) Blood Urea Nitrogen 6 mg/dL (8-26) 6 mg/dL (8-26) Creatinine 0.7 mg/dL (0.7-1.3) 0.6 mg/dL (0.7-1.3) Estimated GFR (Cockcroft-Gault) 133.3 159.3 BUN/Creatinine Ratio 9 (6-20) 10 (6-20) Glucose Level 124 mg/dL (70-99) 91 mg/dL (70-99) Calcium Level 8.9 mg/dL (8.5-10.1) 8.9 mg/dL (8.5-10.1) Total Bilirubin 2.8 mg/dL (0.2-1.0) 2.7 mg/dL (0.2-1.0) Aspartate Amino Transf (AST/SGOT) 398 U/L (15-37) 358 U/L (15-37) Alanine Aminotransferase (ALT/SGPT) 315 U/L (16-63) 267 U/L (16-63) Alkaline Phosphatase 303 U/L (46-116) 263 U/L (46-116) Total Protein 9.1 g/dL (6.4-8.2) 8.2 g/dL (6.4-8.2) Albumin 3.8 g/dL (3.4-5.0) 3.4 g/dL (3.4-5.0) Albumin/Globulin Ratio 0.7 (1.0-1.7) 0.7 (1.0-1.7) Salicylates Level < 0.2 mg/dL (2.8-20.0) Salicylate Last Dose Date Unk Salicylate Last Dose Time Unk Acetaminophen Level < 2.0 mcg/ml (10-30) Acetaminophen Last Dose Date Unh Acetaminophen Last Dose Time Unk Ethyl Alcohol Level 358 mg/dL (0-10) Assessment and Plan Assessmemt and Plan Problems Medical Problems: (1) Aggressive behavior Status: Acute (2) Suicidal ideation Status: Acute Comment Review of Relevant I have reviewed the following items mc (where applicable) has been applied. Labs Laboratory Tests Test 09/10/19 14:30 09/11/19 03:00 White Blood Count 12.0 x10^3/uL (4.0-11.0) 9.6 x10^3/uL (4.0-11.0) Red Blood Count 4.90 x10^6/uL (4.30-5.70) 4.51 x10^6/uL (4.30-5.70) Hemoglobin 16.8 g/dL (13.0-17.5) 15.5 g/dL (13.0-17.5) Hematocrit 49.1 % (39.0-53.0) 44.5 % (39.0-53.0) Mean Corpuscular Volume 100 fL (79-100) 99 fL (79-100) Mean Corpuscular Hemoglobin 34 pg (25-35) 34 pg (25-35) Mean Corpuscular Hemoglobin Concent 34 g/dL (31-37) 35 g/dL (31-37) Red Cell Distribution Width 15.6 % (11.5-14.5) 15.6 % (11.5-14.5) Platelet Count 256 x10^3/uL (140-400) 181 x10^3/uL (140-400) Neutrophils (%) (Auto) 77 % (31-73) 68 % (31-73) Lymphocytes (%) (Auto) 17 % (24-48) 22 % (24-48) Monocytes (%) (Auto) 4 % (0-9) 8 % (0-9) Eosinophils (%) (Auto) 1 % (0-3) 1 % (0-3) Basophils (%) (Auto) 1 % (0-3) 1 % (0-3) Neutrophils # (Auto) 9.2 x10^3/uL (1.8-7.7) 6.5 x10^3/uL (1.8-7.7) Lymphocytes # (Auto) 2.0 x10^3/uL (1.0-4.8) 2.1 x10^3/uL (1.0-4.8) Monocytes # (Auto) 0.5 x10^3/uL (0.0-1.1) 0.8 x10^3/uL (0.0-1.1) Eosinophils # (Auto) 0.1 x10^3/uL (0.0-0.7) 0.1 x10^3/uL (0.0-0.7) Basophils # (Auto) 0.2 x10^3/uL (0.0-0.2) 0.1 x10^3/uL (0.0-0.2) Sodium Level 143 mmol/L (136-145) 143 mmol/L (136-145) Potassium Level 3.9 mmol/L (3.5-5.1) 3.6 mmol/L (3.5-5.1) Chloride Level 103 mmol/L (98-107) 105 mmol/L (98-107) Carbon Dioxide Level 22 mmol/L (21-32) 25 mmol/L (21-32) Anion Gap 18 (6-14) 13 (6-14) Blood Urea Nitrogen 6 mg/dL (8-26) 6 mg/dL (8-26) Creatinine 0.7 mg/dL (0.7-1.3) 0.6 mg/dL (0.7-1.3) Estimated GFR (Cockcroft-Gault) 133.3 159.3 BUN/Creatinine Ratio 9 (6-20) 10 (6-20) Glucose Level 124 mg/dL (70-99) 91 mg/dL (70-99) Calcium Level 8.9 mg/dL (8.5-10.1) 8.9 mg/dL (8.5-10.1) Total Bilirubin 2.8 mg/dL (0.2-1.0) 2.7 mg/dL (0.2-1.0) Aspartate Amino Transf (AST/SGOT) 398 U/L (15-37) 358 U/L (15-37) Alanine Aminotransferase (ALT/SGPT) 315 U/L (16-63) 267 U/L (16-63) Alkaline Phosphatase 303 U/L (46-116) 263 U/L (46-116) Total Protein 9.1 g/dL (6.4-8.2) 8.2 g/dL (6.4-8.2) Albumin 3.8 g/dL (3.4-5.0) 3.4 g/dL (3.4-5.0) Albumin/Globulin Ratio 0.7 (1.0-1.7) 0.7 (1.0-1.7) Salicylates Level < 0.2 mg/dL (2.8-20.0) Salicylate Last Dose Date Unk Salicylate Last Dose Time Unk Acetaminophen Level < 2.0 mcg/ml (10-30) Acetaminophen Last Dose Date Unh Acetaminophen Last Dose Time Unk Ethyl Alcohol Level 358 mg/dL (0-10) Laboratory Tests Test 09/10/19 14:30 09/11/19 03:00 White Blood Count 12.0 x10^3/uL (4.0-11.0) 9.6 x10^3/uL (4.0-11.0) Red Blood Count 4.90 x10^6/uL (4.30-5.70) 4.51 x10^6/uL (4.30-5.70) Hemoglobin 16.8 g/dL (13.0-17.5) 15.5 g/dL (13.0-17.5) Hematocrit 49.1 % (39.0-53.0) 44.5 % (39.0-53.0) Mean Corpuscular Volume 100 fL (79-100) 99 fL (79-100) Mean Corpuscular Hemoglobin 34 pg (25-35) 34 pg (25-35) Mean Corpuscular Hemoglobin Concent 34 g/dL (31-37) 35 g/dL (31-37) Red Cell Distribution Width 15.6 % (11.5-14.5) 15.6 % (11.5-14.5) Platelet Count 256 x10^3/uL (140-400) 181 x10^3/uL (140-400) Neutrophils (%) (Auto) 77 % (31-73) 68 % (31-73) Lymphocytes (%) (Auto) 17 % (24-48) 22 % (24-48) Monocytes (%) (Auto) 4 % (0-9) 8 % (0-9) Eosinophils (%) (Auto) 1 % (0-3) 1 % (0-3) Basophils (%) (Auto) 1 % (0-3) 1 % (0-3) Neutrophils # (Auto) 9.2 x10^3/uL (1.8-7.7) 6.5 x10^3/uL (1.8-7.7) Lymphocytes # (Auto) 2.0 x10^3/uL (1.0-4.8) 2.1 x10^3/uL (1.0-4.8) Monocytes # (Auto) 0.5 x10^3/uL (0.0-1.1) 0.8 x10^3/uL (0.0-1.1) Eosinophils # (Auto) 0.1 x10^3/uL (0.0-0.7) 0.1 x10^3/uL (0.0-0.7) Basophils # (Auto) 0.2 x10^3/uL (0.0-0.2) 0.1 x10^3/uL (0.0-0.2) Sodium Level 143 mmol/L (136-145) 143 mmol/L (136-145) Potassium Level 3.9 mmol/L (3.5-5.1) 3.6 mmol/L (3.5-5.1) Chloride Level 103 mmol/L (98-107) 105 mmol/L (98-107) Carbon Dioxide Level 22 mmol/L (21-32) 25 mmol/L (21-32) Anion Gap 18 (6-14) 13 (6-14) Blood Urea Nitrogen 6 mg/dL (8-26) 6 mg/dL (8-26) Creatinine 0.7 mg/dL (0.7-1.3) 0.6 mg/dL (0.7-1.3) Estimated GFR (Cockcroft-Gault) 133.3 159.3 BUN/Creatinine Ratio 9 (6-20) 10 (6-20) Glucose Level 124 mg/dL (70-99) 91 mg/dL (70-99) Calcium Level 8.9 mg/dL (8.5-10.1) 8.9 mg/dL (8.5-10.1) Total Bilirubin 2.8 mg/dL (0.2-1.0) 2.7 mg/dL (0.2-1.0) Aspartate Amino Transf (AST/SGOT) 398 U/L (15-37) 358 U/L (15-37) Alanine Aminotransferase (ALT/SGPT) 315 U/L (16-63) 267 U/L (16-63) Alkaline Phosphatase 303 U/L (46-116) 263 U/L (46-116) Total Protein 9.1 g/dL (6.4-8.2) 8.2 g/dL (6.4-8.2) Albumin 3.8 g/dL (3.4-5.0) 3.4 g/dL (3.4-5.0) Albumin/Globulin Ratio 0.7 (1.0-1.7) 0.7 (1.0-1.7) Salicylates Level < 0.2 mg/dL (2.8-20.0) Salicylate Last Dose Date Unk Salicylate Last Dose Time Unk Acetaminophen Level < 2.0 mcg/ml (10-30) Acetaminophen Last Dose Date Unh Acetaminophen Last Dose Time Unk Ethyl Alcohol Level 358 mg/dL (0-10) Medications Current Medications Ziprasidone (Geodon Im) 20 mg 1X ONCE IM Last administered on 09/10/19at 14:21; Start 09/10/19 at 14:00; Stop 09/10/19 at 14:07; Status DC Ketamine HCl (Ketamine) 11 mg 1X ONCE IV Last administered on 09/10/19at 16:14; Start 09/10/19 at 14:30; Stop 09/10/19 at 14:31; Status DC Sodium Chloride 1,000 ml @ 1,000 mls/hr 1X ONCE IV Last administered on 09/10/19at 15:10; Start 09/10/19 at 15:15; Stop 09/10/19 at 16:14; Status DC Ondansetron HCl (Zofran) 4 mg PRN Q8HRS PRN IV NAUSEA/VOMITING Last administered on 09/11/19at 08:32; Start 09/10/19 at 15:45; Stop 09/11/19 at 15:44 Multivitamins 10 ml/Thiamine HCl 100 mg/Folic Acid 1 mg/Sodium Chloride 1,011.2 ml @ 100 mls/ hr DAILY IV Last administered on 09/11/19at 09:23; Start 09/11/19 at 09:00; Stop 09/15/19 at 19:07 Multivitamins (Thera M Plus) 1 tab DAILY PO ; Start 09/16/19 at 09:00 Folic Acid (Folic Acid) 1 mg DAILY PO ; Start 09/16/19 at 09:00 Thiamine HCl 100 mg DAILY IM ; Start 09/16/19 at 09:00; Stop 09/16/19 at 09:01 Thiamine HCl 100 mg/Dextrose 51 ml @ 100 mls/hr DAILY IV ; Start 09/11/19 at 09:00; Stop 09/15/19 at 09:31; Status UNV Chlordiazepoxide (Librium) 50 mg PRN Q1HR PRN PO For CIWA 8-14; Start 09/10/19 at 18:30 Lorazepam (Ativan) 4 mg PRN Q1HR PRN PO For CIWA 8-14; Start 09/10/19 at 18:30 Lorazepam (Ativan) 8 mg PRN Q1HR PRN PO For CIWA 15 or greater; Start 09/10/19 at 18:30 Lorazepam (Ativan Inj) 2 mg PRN Q1HR PRN IV For CIWA 8-14 Last administered on 09/10/19at 22:57; Start 09/10/19 at 18:30 Lorazepam (Ativan Inj) 4 mg PRN Q1HR PRN IV For CIWA 15 or greater Last administered on 09/11/19at 08:26; Start 09/10/19 at 18:30 Haloperidol Lactate (Haldol Inj) 5 mg PRN Q4HRS PRN IVP Hallucinatns,Confusn,Delirium; Start 09/10/19 at 18:30 Diphenhydramine HCl (Benadryl) 25 mg PRN Q15MIN PRN IVP EPS symptoms 2'Haldol admin; Start 09/10/19 at 18:30 Clonidine HCl (Catapres) 0.1 mg PRN Q1HR PRN PO SBP > 180 or DBP > 100, MRX3; Start 09/10/19 at 18:30 Lorazepam (Ativan Inj) 2 mg PRN Q15MIN PRN IV SEE COMMENTS; Start 09/10/19 at 18:30 Lorazepam (Ativan Inj) 4 mg PRN Q15MIN PRN IV SEE COMMENTS; Start 09/10/19 at 18:30 Butorphanol Tartrate (Stadol) 1 mg PRN Q6HRS PRN IV MODERATE PAIN 4-6 Last administered on 09/11/19at 08:32; Start 09/11/19 at 00:30 Active Scripts Active Ibuprofen 600 Mg Tablet 600 Mg PO PRN Q6HRS PRN 10 Days Cyclobenzaprine Hcl 10 Mg Tablet 10 Mg PO PRN Q8HRS PRN 30 Days Lorazepam 0.5 Mg Tablet 1 Tab PO TID 7 Days Multivitamins (Multivitamin) 1 Each Tablet 1 Tab PO DAILY Folic Acid 1 Mg Tablet 1 Tab PO DAILY Vitamin B-1 (Thiamine Hcl) 100 Mg Tablet 100 Mg PO DAILY 30 Days Famotidine 20 Mg Tablet 20 Mg PO BID 30 Days Feosol (Ferrous Sulfate) 325 Mg Tablet 325 Mg PO DAILYWBKFT 30 Days Reported Gabapentin 600 Mg Tablet 600 Mg PO TID Haloperidol 5 Mg Tablet 1 Tab PO BID Zyprexa (Olanzapine) 5 Mg Tablet 1 Tab PO QHS Prazosin Hcl 1 Mg Capsule 1 Cap PO QHS Trazodone Hcl 100 Mg Tablet 1 Tab PO QHS Hydroxyzine Hcl 25 Mg Tablet 3 Tab PO TID Zoloft (Sertraline Hcl) 50 Mg Tablet 1 Tab PO DAILY Vitals/I & O Vital Sign - Last 24 Hours 09/10/19 09/10/19 09/10/19 09/10/19 13:58 14:22 14:38 14:40 Temp 99.0 99.0 Pulse 136 136 122 Resp 30 26 23 23 B/P (MAP) 160/83 (108) 129/67 (87) 136/64 (88) Pulse Ox 96 92 89 93 O2 Delivery Room Air Room Air Room Air Nasal Cannula 09/10/19 09/10/19 09/10/19 09/10/19 14:51 15:06 15:21 15:36 Pulse 129 118 120 115 Resp 22 24 24 24 B/P (MAP) 134/63 (86) 137/58 (84) 144/67 (92) 146/69 (94) Pulse Ox 93 92 92 91 O2 Delivery Nasal Cannula Nasal Cannula Nasal Cannula Nasal Cannula 09/10/19 09/10/19 09/10/19 09/10/19 15:51 16:15 16:21 16:36 Pulse 117 110 115 131 Resp 23 24 25 24 B/P (MAP) 131/66 (87) 149/81 (103) 162/89 (113) 177/100 (125) Pulse Ox 92 92 92 92 O2 Delivery Nasal Cannula Nasal Cannula Nasal Cannula Nasal Cannula 09/10/19 09/10/19 09/10/19 09/10/19 16:51 17:39 17:51 19:00 Temp 98.8 98.5 98.8 98.5 Pulse 113 114 100 Resp 24 17 18 B/P (MAP) 143/70 (94) 98/60 (73) 130/76 (94) Pulse Ox 93 94 93 O2 Delivery Nasal Cannula Room Air Room Air 09/10/19 09/10/19 09/11/19 09/11/19 20:00 23:00 02:15 02:45 Temp 98.6 98.6 Pulse 115 Resp 20 20 20 B/P (MAP) 134/88 (103) Pulse Ox 95 O2 Delivery Room Air Room Air Room Air 09/11/19 09/11/19 09/11/19 03:00 08:32 09:05 Temp 98.2 98.2 Pulse 116 Resp 20 16 17 B/P (MAP) 145/87 (106) Pulse Ox 91 O2 Delivery Room Air Room Air Intake and Output 09/10/19 09/10/19 09/11/19 15:00 23:00 07:00 Intake Total 1000 ml 240 ml Balance 1000 ml 240 ml KORY CRAIG MD Sep 11, 2019 09:30
[2019-09-11 11:20] VITALS: BP 146/90
--- NOTE | 2019-09-11 11:53 | PDOC ---
G I PROGRESS NOTE Reason for Follow-up Hepatitis Subjective No new complaints Physical Exam Lungs clear CV S1 S2 ABd +BS, soft nontender Review of Relevant I have reviewed the following items mc (where applicable) has been applied. Labs Laboratory Tests Test 09/10/19 14:30 09/11/19 03:00 White Blood Count 12.0 x10^3/uL (4.0-11.0) 9.6 x10^3/uL (4.0-11.0) Red Blood Count 4.90 x10^6/uL (4.30-5.70) 4.51 x10^6/uL (4.30-5.70) Hemoglobin 16.8 g/dL (13.0-17.5) 15.5 g/dL (13.0-17.5) Hematocrit 49.1 % (39.0-53.0) 44.5 % (39.0-53.0) Mean Corpuscular Volume 100 fL (79-100) 99 fL (79-100) Mean Corpuscular Hemoglobin 34 pg (25-35) 34 pg (25-35) Mean Corpuscular Hemoglobin Concent 34 g/dL (31-37) 35 g/dL (31-37) Red Cell Distribution Width 15.6 % (11.5-14.5) 15.6 % (11.5-14.5) Platelet Count 256 x10^3/uL (140-400) 181 x10^3/uL (140-400) Neutrophils (%) (Auto) 77 % (31-73) 68 % (31-73) Lymphocytes (%) (Auto) 17 % (24-48) 22 % (24-48) Monocytes (%) (Auto) 4 % (0-9) 8 % (0-9) Eosinophils (%) (Auto) 1 % (0-3) 1 % (0-3) Basophils (%) (Auto) 1 % (0-3) 1 % (0-3) Neutrophils # (Auto) 9.2 x10^3/uL (1.8-7.7) 6.5 x10^3/uL (1.8-7.7) Lymphocytes # (Auto) 2.0 x10^3/uL (1.0-4.8) 2.1 x10^3/uL (1.0-4.8) Monocytes # (Auto) 0.5 x10^3/uL (0.0-1.1) 0.8 x10^3/uL (0.0-1.1) Eosinophils # (Auto) 0.1 x10^3/uL (0.0-0.7) 0.1 x10^3/uL (0.0-0.7) Basophils # (Auto) 0.2 x10^3/uL (0.0-0.2) 0.1 x10^3/uL (0.0-0.2) Sodium Level 143 mmol/L (136-145) 143 mmol/L (136-145) Potassium Level 3.9 mmol/L (3.5-5.1) 3.6 mmol/L (3.5-5.1) Chloride Level 103 mmol/L (98-107) 105 mmol/L (98-107) Carbon Dioxide Level 22 mmol/L (21-32) 25 mmol/L (21-32) Anion Gap 18 (6-14) 13 (6-14) Blood Urea Nitrogen 6 mg/dL (8-26) 6 mg/dL (8-26) Creatinine 0.7 mg/dL (0.7-1.3) 0.6 mg/dL (0.7-1.3) Estimated GFR (Cockcroft-Gault) 133.3 159.3 BUN/Creatinine Ratio 9 (6-20) 10 (6-20) Glucose Level 124 mg/dL (70-99) 91 mg/dL (70-99) Calcium Level 8.9 mg/dL (8.5-10.1) 8.9 mg/dL (8.5-10.1) Total Bilirubin 2.8 mg/dL (0.2-1.0) 2.7 mg/dL (0.2-1.0) Aspartate Amino Transf (AST/SGOT) 398 U/L (15-37) 358 U/L (15-37) Alanine Aminotransferase (ALT/SGPT) 315 U/L (16-63) 267 U/L (16-63) Alkaline Phosphatase 303 U/L (46-116) 263 U/L (46-116) Total Protein 9.1 g/dL (6.4-8.2) 8.2 g/dL (6.4-8.2) Albumin 3.8 g/dL (3.4-5.0) 3.4 g/dL (3.4-5.0) Albumin/Globulin Ratio 0.7 (1.0-1.7) 0.7 (1.0-1.7) Salicylates Level < 0.2 mg/dL (2.8-20.0) Salicylate Last Dose Date Unk Salicylate Last Dose Time Unk Acetaminophen Level < 2.0 mcg/ml (10-30) Acetaminophen Last Dose Date Unh Acetaminophen Last Dose Time Unk Ethyl Alcohol Level 358 mg/dL (0-10) Laboratory Tests Test 09/10/19 14:30 09/11/19 03:00 White Blood Count 12.0 x10^3/uL (4.0-11.0) 9.6 x10^3/uL (4.0-11.0) Red Blood Count 4.90 x10^6/uL (4.30-5.70) 4.51 x10^6/uL (4.30-5.70) Hemoglobin 16.8 g/dL (13.0-17.5) 15.5 g/dL (13.0-17.5) Hematocrit 49.1 % (39.0-53.0) 44.5 % (39.0-53.0) Mean Corpuscular Volume 100 fL (79-100) 99 fL (79-100) Mean Corpuscular Hemoglobin 34 pg (25-35) 34 pg (25-35) Mean Corpuscular Hemoglobin Concent 34 g/dL (31-37) 35 g/dL (31-37) Red Cell Distribution Width 15.6 % (11.5-14.5) 15.6 % (11.5-14.5) Platelet Count 256 x10^3/uL (140-400) 181 x10^3/uL (140-400) Neutrophils (%) (Auto) 77 % (31-73) 68 % (31-73) Lymphocytes (%) (Auto) 17 % (24-48) 22 % (24-48) Monocytes (%) (Auto) 4 % (0-9) 8 % (0-9) Eosinophils (%) (Auto) 1 % (0-3) 1 % (0-3) Basophils (%) (Auto) 1 % (0-3) 1 % (0-3) Neutrophils # (Auto) 9.2 x10^3/uL (1.8-7.7) 6.5 x10^3/uL (1.8-7.7) Lymphocytes # (Auto) 2.0 x10^3/uL (1.0-4.8) 2.1 x10^3/uL (1.0-4.8) Monocytes # (Auto) 0.5 x10^3/uL (0.0-1.1) 0.8 x10^3/uL (0.0-1.1) Eosinophils # (Auto) 0.1 x10^3/uL (0.0-0.7) 0.1 x10^3/uL (0.0-0.7) Basophils # (Auto) 0.2 x10^3/uL (0.0-0.2) 0.1 x10^3/uL (0.0-0.2) Sodium Level 143 mmol/L (136-145) 143 mmol/L (136-145) Potassium Level 3.9 mmol/L (3.5-5.1) 3.6 mmol/L (3.5-5.1) Chloride Level 103 mmol/L (98-107) 105 mmol/L (98-107) Carbon Dioxide Level 22 mmol/L (21-32) 25 mmol/L (21-32) Anion Gap 18 (6-14) 13 (6-14) Blood Urea Nitrogen 6 mg/dL (8-26) 6 mg/dL (8-26) Creatinine 0.7 mg/dL (0.7-1.3) 0.6 mg/dL (0.7-1.3) Estimated GFR (Cockcroft-Gault) 133.3 159.3 BUN/Creatinine Ratio 9 (6-20) 10 (6-20) Glucose Level 124 mg/dL (70-99) 91 mg/dL (70-99) Calcium Level 8.9 mg/dL (8.5-10.1) 8.9 mg/dL (8.5-10.1) Total Bilirubin 2.8 mg/dL (0.2-1.0) 2.7 mg/dL (0.2-1.0) Aspartate Amino Transf (AST/SGOT) 398 U/L (15-37) 358 U/L (15-37) Alanine Aminotransferase (ALT/SGPT) 315 U/L (16-63) 267 U/L (16-63) Alkaline Phosphatase 303 U/L (46-116) 263 U/L (46-116) Total Protein 9.1 g/dL (6.4-8.2) 8.2 g/dL (6.4-8.2) Albumin 3.8 g/dL (3.4-5.0) 3.4 g/dL (3.4-5.0) Albumin/Globulin Ratio 0.7 (1.0-1.7) 0.7 (1.0-1.7) Salicylates Level < 0.2 mg/dL (2.8-20.0) Salicylate Last Dose Date Unk Salicylate Last Dose Time Unk Acetaminophen Level < 2.0 mcg/ml (10-30) Acetaminophen Last Dose Date Unh Acetaminophen Last Dose Time Unk Ethyl Alcohol Level 358 mg/dL (0-10) Medications Current Medications Ziprasidone (Geodon Im) 20 mg 1X ONCE IM Last administered on 09/10/19at 14:21; Start 09/10/19 at 14:00; Stop 09/10/19 at 14:07; Status DC Ketamine HCl (Ketamine) 11 mg 1X ONCE IV Last administered on 09/10/19at 16:14; Start 09/10/19 at 14:30; Stop 09/10/19 at 14:31; Status DC Sodium Chloride 1,000 ml @ 1,000 mls/hr 1X ONCE IV Last administered on 09/10/19at 15:10; Start 09/10/19 at 15:15; Stop 09/10/19 at 16:14; Status DC Ondansetron HCl (Zofran) 4 mg PRN Q8HRS PRN IV NAUSEA/VOMITING Last administered on 09/11/19at 08:32; Start 09/10/19 at 15:45; Stop 09/11/19 at 15:44 Multivitamins 10 ml/Thiamine HCl 100 mg/Folic Acid 1 mg/Sodium Chloride 1,011.2 ml @ 100 mls/ hr DAILY IV Last administered on 09/11/19at 09:23; Start 09/11/19 at 09:00; Stop 09/15/19 at 19:07 Multivitamins (Thera M Plus) 1 tab DAILY PO ; Start 09/16/19 at 09:00 Folic Acid (Folic Acid) 1 mg DAILY PO ; Start 09/16/19 at 09:00 Thiamine HCl 100 mg DAILY IM ; Start 09/16/19 at 09:00; Stop 09/16/19 at 09:01; Status Cancel Thiamine HCl 100 mg/Dextrose 51 ml @ 100 mls/hr DAILY IV ; Start 09/11/19 at 09:00; Stop 09/15/19 at 09:31; Status UNV Chlordiazepoxide (Librium) 50 mg PRN Q1HR PRN PO For CIWA 8-14; Start 09/10/19 at 18:30 Lorazepam (Ativan) 4 mg PRN Q1HR PRN PO For CIWA 8-14; Start 09/10/19 at 18:30 Lorazepam (Ativan) 8 mg PRN Q1HR PRN PO For CIWA 15 or greater; Start 09/10/19 at 18:30 Lorazepam (Ativan Inj) 2 mg PRN Q1HR PRN IV For CIWA 8-14 Last administered on 09/11/19at 11:43; Start 09/10/19 at 18:30 Lorazepam (Ativan Inj) 4 mg PRN Q1HR PRN IV For CIWA 15 or greater Last administered on 09/11/19at 08:26; Start 09/10/19 at 18:30 Haloperidol Lactate (Haldol Inj) 5 mg PRN Q4HRS PRN IVP Hallucinatns,Confusn,Delirium; Start 09/10/19 at 18:30 Diphenhydramine HCl (Benadryl) 25 mg PRN Q15MIN PRN IVP EPS symptoms 2'Haldol admin; Start 09/10/19 at 18:30 Clonidine HCl (Catapres) 0.1 mg PRN Q1HR PRN PO SBP > 180 or DBP > 100, MRX3; Start 09/10/19 at 18:30 Lorazepam (Ativan Inj) 2 mg PRN Q15MIN PRN IV SEE COMMENTS; Start 09/10/19 at 18:30; Stop 09/11/19 at 11:22; Status DC Lorazepam (Ativan Inj) 4 mg PRN Q15MIN PRN IV SEE COMMENTS; Start 09/10/19 at 18:30; Stop 09/11/19 at 11:22; Status DC Butorphanol Tartrate (Stadol) 1 mg PRN Q6HRS PRN IV MODERATE PAIN 4-6 Last administered on 09/11/19at 08:32; Start 09/11/19 at 00:30 Famotidine (Pepcid) 20 mg BID PO ; Start 09/11/19 at 12:00 Ferrous Sulfate (Feosol) 325 mg DAILYWBKFT PO ; Start 09/11/19 at 12:00 Folic Acid (Folic Acid) 1 mg DAILY PO ; Start 09/11/19 at 12:00; Status UNV Lorazepam (Ativan) 0.5 mg TID PO ; Start 09/11/19 at 14:00 Prazosin HCl (Minipress) 1 mg QHS PO ; Start 09/11/19 at 21:00 Sertraline HCl (Zoloft) 50 mg DAILY PO ; Start 09/11/19 at 12:00 Non-Formulary Medication (Multivitamin (Multivitamins)) 1 tab DAILY PO ; Start 09/12/19 at 09:00; Status UNV Thiamine Mononitrate (Vitamin B-1) 100 mg DAILY PO ; Start 09/16/19 at 09:00 Active Scripts Active Ibuprofen 600 Mg Tablet 600 Mg PO PRN Q6HRS PRN 10 Days Lorazepam 0.5 Mg Tablet 1 Tab PO TID 7 Days Multivitamins (Multivitamin) 1 Each Tablet 1 Tab PO DAILY Folic Acid 1 Mg Tablet 1 Tab PO DAILY Vitamin B-1 (Thiamine Hcl) 100 Mg Tablet 100 Mg PO DAILY 30 Days Famotidine 20 Mg Tablet 20 Mg PO BID 30 Days Feosol (Ferrous Sulfate) 325 Mg Tablet 325 Mg PO DAILYWBKFT 30 Days Reported Gabapentin 600 Mg Tablet 600 Mg PO TID Haloperidol 5 Mg Tablet 1 Tab PO BID Zyprexa (Olanzapine) 5 Mg Tablet 1 Tab PO QHS Prazosin Hcl 1 Mg Capsule 1 Cap PO QHS Trazodone Hcl 100 Mg Tablet 1 Tab PO QHS Hydroxyzine Hcl 25 Mg Tablet 3 Tab PO TID Zoloft (Sertraline Hcl) 50 Mg Tablet 1 Tab PO DAILY Vitals/I & O Vital Sign - Last 24 Hours 09/10/19 09/10/19 09/10/19 10/11/19 13:58 14:22 14:38 14:40 Temp 99.0 99.0 Pulse 136 136 122 Resp 30 23 23 B/P (MAP) 160/83 (108) 129/67 (87) 136/64 (88) Pulse Ox 96 92 89 93 O2 Delivery Room Air Room Air Room Air Nasal Cannula 09/10/19 09/10/19 09/10/19 09/10/19 14:51 15:06 15:21 15:36 Pulse 129 118 120 115 Resp 22 24 24 24 B/P (MAP) 134/63 (86) 137/58 (84) 144/67 (92) 146/69 (94) Pulse Ox 93 92 92 91 O2 Delivery Nasal Cannula Nasal Cannula Nasal Cannula Nasal Cannula 09/10/19 09/10/19 09/10/19 09/10/19 15:51 16:15 16:21 16:36 Pulse 117 110 115 131 Resp 24 B/P (MAP) 131/66 (87) 149/81 (103) 162/89 (113) 177/100 (125) Pulse Ox 92 92 92 92 O2 Delivery Nasal Cannula Nasal Cannula Nasal Cannula Nasal Cannula 09/10/19 09/10/19 09/10/19 09/10/19 16:51 17:39 17:51 19:00 Temp 98.8 98.5 98.8 98.5 Pulse 113 114 100 Resp 24 17 18 B/P (MAP) 143/70 (94) 98/60 (73) 130/76 (94) Pulse Ox 93 94 93 O2 Delivery Nasal Cannula Room Air Room Air 09/10/19 09/10/19 09/11/19 09/11/19 20:00 23:00 02:15 02:45 Temp 98.6 98.6 Pulse 115 Resp 20 20 20 B/P (MAP) 134/88 (103) Pulse Ox 95 O2 Delivery Room Air Room Air Room Air 09/11/19 09/11/19 09/11/19 09/11/19 03:00 07:25 08:10 08:32 Temp 98.2 98.5 98.2 98.5 Pulse 116 105 Resp 20 16 16 B/P (MAP) 145/87 (106) 148/93 (111) Pulse Ox 91 O2 Delivery Room Air Room Air Room Air 09/11/19 09:05 Resp 17 O2 Delivery Room Air Intake and Output 09/10/19 09/10/19 09/11/19 15:00 23:00 07:00 Intake Total 1000 ml 240 ml Balance 1000 ml 240 ml Problem List Problems Medical Problems: (1) Aggressive behavior Status: Acute (2) Suicidal ideation Status: Acute Assessment Hepatitis- most likely secondary to alcohol and other substance abuse, o/p viral serologies if patient follow up, CPM, AA [employer] with alcohol abstinence REGINA CAMPO MD Sep 11, 2019 11:53
[2019-09-11] MEDS ORDERED: FOLIC ACID 1 MG TABLET. PO SCH (12:00)
[2019-09-11] MEDS: FERROUS SULFATE 325 MG TABLET. PO SCH (12:05)
[2019-09-11] MEDS: SERTRALINE 50 MG TABLET. PO SCH (12:05)
[2019-09-11] MEDS: FAMOTIDINE 20 MG TABLET. PO SCH ×2 (12:05→21:00)
--- NOTE | 2019-09-11 12:10 | RAD ---
CT HEAD WO CONTRAST History: Toxic encephalopathy Comparison: June 24, 2017 Technique: Noncontrast CT imaging was performed of the head. Exposure: One or more of the following individualized dose reduction techniques were utilized for this examination: 1. Automated exposure control 2. Adjustment of the mA and/or kV according to patient size 3. Use of iterative reconstruction technique. Findings: No acute extra-axial or parenchymal hemorrhage is identified. There is no significant intra-axial mass effect, midline shift, or extra-axial fluid collection. The pittman-white differentiation of the major vascular territories is preserved. The ventricles, sulci, and cisterns are within normal limits in size and configuration. The mastoid air cells and the visualized paranasal sinuses are aerated. No acute calvarial abnormality is identified. Impression: 1. No acute intracranial abnormality is identified. Electronically signed by: Conner Estrella MD (09/11/2019 12:07 PM) [facility]
--- NOTE | 2019-09-11 13:06 | PDOC2 ---
NEUROLOGY CONSULT Date of Admission Date of Admission DATE: 09/11/19 TIME: 12:59 Reason for Consult Reason for Consult: Toxic encephalopathy Referring Physician Referring Physician: Dr. Renee Source Source: Chart review, Patient History of Present Illness History of Present Illness Patient is a 29-year-old right-handed male with known psychiatric issues he does not know why he is here. Apparently he took overdose of Haldol and got intoxicated with alcohol and was behaving inappropriately. There were suicidal ideation. He was just released from [facility] according to the chart note. Past Medical History Cardiovascular: HTN GI: GI bleed, Gastritis, Other (esophageal varices, colitis) Hepatobiliary: Cirrhosis, Other (alpha-1 antitrypsin) Psych: Addictions, Depression, Schizophrenia, Other (personality disorder) Family History Family History: Other (father had alcoholism and cirrhosis) Social History Social History On disability, drinks heavily at least 2 pints of vodka a day, occasional tobacco, occasional street drugs, lives with mother and brother Current Medications Current Medications Current Medications Ziprasidone (Geodon Im) 20 mg 1X ONCE IM Last administered on 09/10/19at 14:21; Start 09/10/19 at 14:00; Stop 09/10/19 at 14:07; Status DC Ketamine HCl (Ketamine) 11 mg 1X ONCE IV Last administered on 09/10/19at 16:14; Start 09/10/19 at 14:30; Stop 09/10/19 at 14:31; Status DC Sodium Chloride 1,000 ml @ 1,000 mls/hr 1X ONCE IV Last administered on 09/10/19at 15:10; Start 09/10/19 at 15:15; Stop 09/10/19 at 16:14; Status DC Ondansetron HCl (Zofran) 4 mg PRN Q8HRS PRN IV NAUSEA/VOMITING Last admini stered on 09/11/19at 08:32; Start 09/10/19 at 15:45; Stop 09/11/19 at 15:44 Multivitamins 10 ml/Thiamine HCl 100 mg/Folic Acid 1 mg/Sodium Chloride 1,011.2 ml @ 100 mls/ hr DAILY IV Last administered on 09/11/19at 09:23; Start 09/11/19 at 09:00; Stop 09/15/19 at 19:07 Multivitamins (Thera M Plus) 1 tab DAILY PO ; Start 09/16/19 at 09:00 Folic Acid (Folic Acid) 1 mg DAILY PO ; Start 09/16/19 at 09:00 Thiamine HCl 100 mg DAILY IM ; Start 09/16/19 at 09:00; Stop 09/16/19 at 09:01; Status Cancel Thiamine HCl 100 mg/Dextrose 51 ml @ 100 mls/hr DAILY IV ; Start 09/11/19 at 09:00; Stop 09/15/19 at 09:31; Status UNV Chlordiazepoxide (Librium) 50 mg PRN Q1HR PRN PO For CIWA 8-14; Start 09/10/19 at 18:30 Lorazepam (Ativan) 4 mg PRN Q1HR PRN PO For CIWA 8-14; Start 09/10/19 at 18:30 Lorazepam (Ativan) 8 mg PRN Q1HR PRN PO For CIWA 15 or greater; Start 09/10/19 at 18:30 Lorazepam (Ativan Inj) 2 mg PRN Q1HR PRN IV For CIWA 8-14 Last administered on 09/11/19at 11:43; Start 09/10/19 at 18:30 Lorazepam (Ativan Inj) 4 mg PRN Q1HR PRN IV For CIWA 15 or greater Last administered on 09/11/19at 08:26; Start 09/10/19 at 18:30 Haloperidol Lactate (Haldol Inj) 5 mg PRN Q4HRS PRN IVP Hallucinatns,Confusn,Delirium; Start 09/10/19 at 18:30 Diphenhydramine HCl (Benadryl) 25 mg PRN Q15MIN PRN IVP EPS symptoms 2'Haldol admin; Start 09/10/19 at 18:30 Clonidine HCl (Catapres) 0.1 mg PRN Q1HR PRN PO SBP > 180 or DBP > 100, MRX3; Start 09/10/19 at 18:30 Lorazepam (Ativan Inj) 2 mg PRN Q15MIN PRN IV SEE COMMENTS; Start 09/10/19 at 18:30; Stop 09/11/19 at 11:22; Status DC Lorazepam (Ativan Inj) 4 mg PRN Q15MIN PRN IV SEE COMMENTS; Start 09/10/19 at 18:30; Stop 09/11/19 at 11:22; Status DC Butorphanol Tartrate (Stadol) 1 mg PRN Q6HRS PRN IV MODERATE PAIN 4-6 Last administered on 09/11/19at 08:32; Start 09/11/19 at 00:30 Famotidine (Pepcid) 20 mg BID PO Last administered on 09/11/19at 12:05; Start 09/11/19 at 12:00 Ferrous Sulfate (Feosol) 325 mg DAILYWBKFT PO Last administered on 09/11/19at 12:05; Start 09/11/19 at 12:00 Folic Acid (Folic Acid) 1 mg DAILY PO ; Start 09/11/19 at 12:00; Status UNV Lorazepam (Ativan) 0.5 mg TID PO ; Start 09/11/19 at 14:00 Prazosin HCl (Minipress) 1 mg QHS PO ; Start 09/11/19 at 21:00 Sertraline HCl (Zoloft) 50 mg DAILY PO Last administered on 09/11/19at 12:05; Start 09/11/19 at 12:00 Non-Formulary Medication (Multivitamin (Multivitamins)) 1 tab DAILY PO ; Start 09/12/19 at 09:00; Status UNV Thiamine Mononitrate (Vitamin B-1) 100 mg DAILY PO ; Start 09/16/19 at 09:00 Active Scripts Active Ibuprofen 600 Mg Tablet 600 Mg PO PRN Q6HRS PRN 10 Days Lorazepam 0.5 Mg Tablet 1 Tab PO TID 7 Days Multivitamins (Multivitamin) 1 Each Tablet 1 Tab PO DAILY Folic Acid 1 Mg Tablet 1 Tab PO DAILY Vitamin B-1 (Thiamine Hcl) 100 Mg Tablet 100 Mg PO DAILY 30 Days Famotidine 20 Mg Tablet 20 Mg PO BID 30 Days Feosol (Ferrous Sulfate) 325 Mg Tablet 325 Mg PO DAILYWBKFT 30 Days Reported Gabapentin 600 Mg Tablet 600 Mg PO TID Haloperidol 5 Mg Tablet 1 Tab PO BID Zyprexa (Olanzapine) 5 Mg Tablet 1 Tab PO QHS Prazosin Hcl 1 Mg Capsule 1 Cap PO QHS Trazodone Hcl 100 Mg Tablet 1 Tab PO QHS Hydroxyzine Hcl 25 Mg Tablet 3 Tab PO TID Zoloft (Sertraline Hcl) 50 Mg Tablet 1 Tab PO DAILY Allergies Allergies: Coded Allergies: No Known Drug Allergies (Unverified , 06/25/17) ROS Review of System Negative for fever, chills, weight loss, shortness of breath, chest pain, indigestion, hematochezia, melena, and dysuria. Full 14-point review of systems is negative. Physical Exam Physical Examination General: Well-developed, well-nourished white male in no acute distress HEENT: Normocephalic and�atraumatic. Temporal arteries�pulsatile and nontender.� Neck: Supple without bruit, no meningismus� Musculoskeletal: Stability:�see neurologic. Gait exam:�see neurologic. Tone:�see neurologic.�Strength:�see neurologic.� Neurological: Mental Status:�intact, orientation, memory, attention span/concentration, language, fund of knowledge normal, but he is a poor historian. Cranial Nerves:�Pupils equal and reactive to light, extraocular movements are�intact, visual topete are full to confrontation. Facial sensation is normal. There is no facial asymmetry. Vestibulo-ocular reflex is intact. Palate elevates and tongue protrudes in midline. All other cranial related problems are negative except as mentioned before.�Reflexes:�2+ and symmetric with flexor plantar responses. Motor:�5/5 strength with normal tone and bulk. Coordination:�Finger-nose finger and [id number] testing are normal. Rapid alternating movements and fine finger movements are intact. Gait:�not tested. Sensory:�Normal pinprick, vibration, light touch, proprioception.� Vitals VITALS Vital Signs Date Time Temp Pulse Resp B/P (MAP) Pulse Ox O2 Delivery O2 Flow Rate FiO2 09/11/19 11:20 98.3 110 16 146/90 (108) 93 Room Air 98.3 Labs Labs Laboratory Tests Test 09/10/19 14:30 09/11/19 03:00 White Blood Count 12.0 x10^3/uL (4.0-11.0) 9.6 x10^3/uL (4.0-11.0) Red Blood Count 4.90 x10^6/uL (4.30-5.70) 4.51 x10^6/uL (4.30-5.70) Hemoglobin 16.8 g/dL (13.0-17.5) 15.5 g/dL (13.0-17.5) Hematocrit 49.1 % (39.0-53.0) 44.5 % (39.0-53.0) Mean Corpuscular Volume 100 fL (79-100) 99 fL (79-100) Mean Corpuscular Hemoglobin 34 pg (25-35) 34 pg (25-35) Mean Corpuscular Hemoglobin Concent 34 g/dL (31-37) 35 g/dL (31-37) Red Cell Distribution Width 15.6 % (11.5-14.5) 15.6 % (11.5-14.5) Platelet Count 256 x10^3/uL (140-400) 181 x10^3/uL (140-400) Neutrophils (%) (Auto) 77 % (31-73) 68 % (31-73) Lymphocytes (%) (Auto) 17 % (24-48) 22 % (24-48) Monocytes (%) (Auto) 4 % (0-9) 8 % (0-9) Eosinophils (%) (Auto) 1 % (0-3) 1 % (0-3) Basophils (%) (Auto) 1 % (0-3) 1 % (0-3) Neutrophils # (Auto) 9.2 x10^3/uL (1.8-7.7) 6.5 x10^3/uL (1.8-7.7) Lymphocytes # (Auto) 2.0 x10^3/uL (1.0-4.8) 2.1 x10^3/uL (1.0-4.8) Monocytes # (Auto) 0.5 x10^3/uL (0.0-1.1) 0.8 x10^3/uL (0.0-1.1) Eosinophils # (Auto) 0.1 x10^3/uL (0.0-0.7) 0.1 x10^3/uL (0.0-0.7) Basophils # (Auto) 0.2 x10^3/uL (0.0-0.2) 0.1 x10^3/uL (0.0-0.2) Sodium Level 143 mmol/L (136-145) 143 mmol/L (136-145) Potassium Level 3.9 mmol/L (3.5-5.1) 3.6 mmol/L (3.5-5.1) Chloride Level 103 mmol/L (98-107) 105 mmol/L (98-107) Carbon Dioxide Level 22 mmol/L (21-32) 25 mmol/L (21-32) Anion Gap 18 (6-14) 13 (6-14) Blood Urea Nitrogen 6 mg/dL (8-26) 6 mg/dL (8-26) Creatinine 0.7 mg/dL (0.7-1.3) 0.6 mg/dL (0.7-1.3) Estimated GFR (Cockcroft-Gault) 133.3 159.3 BUN/Creatinine Ratio 9 (6-20) 10 (6-20) Glucose Level 124 mg/dL (70-99) 91 mg/dL (70-99) Calcium Level 8.9 mg/dL (8.5-10.1) 8.9 mg/dL (8.5-10.1) Total Bilirubin 2.8 mg/dL (0.2-1.0) 2.7 mg/dL (0.2-1.0) Aspartate Amino Transf (AST/SGOT) 398 U/L (15-37) 358 U/L (15-37) Alanine Aminotransferase (ALT/SGPT) 315 U/L (16-63) 267 U/L (16-63) Alkaline Phosphatase 303 U/L (46-116) 263 U/L (46-116) Total Protein 9.1 g/dL (6.4-8.2) 8.2 g/dL (6.4-8.2) Albumin 3.8 g/dL (3.4-5.0) 3.4 g/dL (3.4-5.0) Albumin/Globulin Ratio 0.7 (1.0-1.7) 0.7 (1.0-1.7) Salicylates Level < 0.2 mg/dL (2.8-20.0) Salicylate Last Dose Date Unk Salicylate Last Dose Time Unk Acetaminophen Level < 2.0 mcg/ml (10-30) Acetaminophen Last Dose Date Unh Acetaminophen Last Dose Time Unk Ethyl Alcohol Level 358 mg/dL (0-10) Laboratory Tests Test 09/10/19 14:30 09/11/19 03:00 White Blood Count 12.0 x10^3/uL (4.0-11.0) 9.6 x10^3/uL (4.0-11.0) Red Blood Count 4.90 x10^6/uL (4.30-5.70) 4.51 x10^6/uL (4.30-5.70) Hemoglobin 16.8 g/dL (13.0-17.5) 15.5 g/dL (13.0-17.5) Hematocrit 49.1 % (39.0-53.0) 44.5 % (39.0-53.0) Mean Corpuscular Volume 100 fL (79-100) 99 fL (79-100) Mean Corpuscular Hemoglobin 34 pg (25-35) 34 pg (25-35) Mean Corpuscular Hemoglobin Concent 34 g/dL (31-37) 35 g/dL (31-37) Red Cell Distribution Width 15.6 % (11.5-14.5) 15.6 % (11.5-14.5) Platelet Count 256 x10^3/uL (140-400) 181 x10^3/uL (140-400) Neutrophils (%) (Auto) 77 % (31-73) 68 % (31-73) Lymphocytes (%) (Auto) 17 % (24-48) 22 % (24-48) Monocytes (%) (Auto) 4 % (0-9) 8 % (0-9) Eosinophils (%) (Auto) 1 % (0-3) 1 % (0-3) Basophils (%) (Auto) 1 % (0-3) 1 % (0-3) Neutrophils # (Auto) 9.2 x10^3/uL (1.8-7.7) 6.5 x10^3/uL (1.8-7.7) Lymphocytes # (Auto) 2.0 x10^3/uL (1.0-4.8) 2.1 x10^3/uL (1.0-4.8) Monocytes # (Auto) 0.5 x10^3/uL (0.0-1.1) 0.8 x10^3/uL (0.0-1.1) Eosinophils # (Auto) 0.1 x10^3/uL (0.0-0.7) 0.1 x10^3/uL (0.0-0.7) Basophils # (Auto) 0.2 x10^3/uL (0.0-0.2) 0.1 x10^3/uL (0.0-0.2) Sodium Level 143 mmol/L (136-145) 143 mmol/L (136-145) Potassium Level 3.9 mmol/L (3.5-5.1) 3.6 mmol/L (3.5-5.1) Chloride Level 103 mmol/L (98-107) 105 mmol/L (98-107) Carbon Dioxide Level 22 mmol/L (21-32) 25 mmol/L (21-32) Anion Gap 18 (6-14) 13 (6-14) Blood Urea Nitrogen 6 mg/dL (8-26) 6 mg/dL (8-26) Creatinine 0.7 mg/dL (0.7-1.3) 0.6 mg/dL (0.7-1.3) Estimated GFR (Cockcroft-Gault) 133.3 159.3 BUN/Creatinine Ratio 9 (6-20) 10 (6-20) Glucose Level 124 mg/dL (70-99) 91 mg/dL (70-99) Calcium Level 8.9 mg/dL (8.5-10.1) 8.9 mg/dL (8.5-10.1) Total Bilirubin 2.8 mg/dL (0.2-1.0) 2.7 mg/dL (0.2-1.0) Aspartate Amino Transf (AST/SGOT) 398 U/L (15-37) 358 U/L (15-37) Alanine Aminotransferase (ALT/SGPT) 315 U/L (16-63) 267 U/L (16-63) Alkaline Phosphatase 303 U/L (46-116) 263 U/L (46-116) Total Protein 9.1 g/dL (6.4-8.2) 8.2 g/dL (6.4-8.2) Albumin 3.8 g/dL (3.4-5.0) 3.4 g/dL (3.4-5.0) Albumin/Globulin Ratio 0.7 (1.0-1.7) 0.7 (1.0-1.7) Salicylates Level < 0.2 mg/dL (2.8-20.0) Salicylate Last Dose Date Unk Salicylate Last Dose Time Unk Acetaminophen Level < 2.0 mcg/ml (10-30) Acetaminophen Last Dose Date Unh Acetaminophen Last Dose Time Unk Ethyl Alcohol Level 358 mg/dL (0-10) Images Images CT HEAD WO CONTRAST History: Toxic encephalopathy Comparison: June 24, 2017 Technique: Noncontrast CT imaging was performed of the head. Exposure: One or more of the following individualized dose reduction techniques were utilized for this examination: 1. Automated exposure control 2. Adjustment of the mA and/or kV according to patient size 3. Use of iterative reconstruction technique. Findings: No acute extra-axial or parenchymal hemorrhage is identified. There is no significant intra-axial mass effect, midline shift, or extra-axial fluid collection. The pittman-white differentiation of the major vascular territories is preserved. The ventricles, sulci, and cisterns are within normal limits in size and configuration. The mastoid air cells and the visualized paranasal sinuses are aerated. No acute calvarial abnormality is identified. Impression: 1. No acute intracranial abnormality is identified. Assessment/Plan Assessment/Plan Impression: Acute alcohol intoxication, schizophrenia, liver disease, but no primary neurological issue. Recommendations: Await psychiatric assessment team No need for additional neurological studies or treatment Neurology will follow along at intervals. Thank you for letting me help with the patient's care. ROBIN TY MD Sep 11, 2019 13:06
[2019-09-11 13:11] LABS: PROTHROMBIN TIME PATIENT 17.4 SEC (11.7-14.0)
[2019-09-11] MEDS: LORazepam 0.5 MG TABLET PO SCH ×2 (14:08→19:51)
[2019-09-11 15:00] VITALS: BP 135/84
[2019-09-11] MEDS: ONDANSETRON PF 4 MG/2 ML VIAL. IVP PRN (16:58)
[2019-09-11 18:53] LABS: AMPHETAMINE/METHAMPHETAMINE NEG (NEG); BARBITURATES NEG (NEG); BENZODIAZEPINES POS (NEG); CANNABINOIDS NEG (NEG); COCAINE NEG (NEG); METHADONE NEG (NEG); OPIATES NEG (NEG); PHENCYCLIDINE NEG (NEG)
[2019-09-11 19:01] VITALS: BP 150/107
[2019-09-11] MEDS: PRAZOSIN 1 MG CAPSULE. PO SCH (19:51)
[2019-09-11 23:00] VITALS: BP 141/102
[2019-09-11] MEDS ORDERED: LABETALOL 20 MG/4 ML DISP.SYRIN. IVP PRN (23:45)
[2019-09-12 03:12] VITALS: BP 133/89
[2019-09-12] MEDS: BUTORPHANOL 2 MG/ML VIAL. IV PRN ×2 (03:13→09:33)
[2019-09-12 04:20] LABS: BASO % 1 % (0-3); EOS # 0.1 x10^3/uL (0.0-0.7); EOS % 2 % (0-3); HEMATOCRIT 40.2 % (39.0-53.0); HEMOGLOBIN 13.5 g/dL (13.0-17.5); LYMPH % 20 % (24-48); MEAN CORPUSCULAR HEMOGLOBIN 34 pg (25-35); MEAN CORPUSCULAR HGB CONC 34 g/dL (31-37); MEAN CORPUSCULAR VOLUME 100 fL (79-100); MONO # 0.6 x10^3/uL (0.0-1.1); MONO % 12 % (0-9); NEUT # 3.1 x10^3/uL (1.8-7.7); NEUT % 65 % (31-73); PLATELET COUNT 90 x10^3/uL (140-400); RED BLOOD COUNT 4.04 x10^6/uL (4.30-5.70); RED CELL DISTRIBUTION WIDTH 15.3 % (11.5-14.5); WHITE BLOOD COUNT 4.7 x10^3/uL (4.0-11.0)
[2019-09-12 04:41] LABS: ALBUMIN 3.2 g/dL (3.4-5.0); ALBUMIN/GLOBULIN RATIO 0.7 (1.0-1.7); CALCIUM 9.2 mg/dL (8.5-10.1); CREATININE 0.7 mg/dL (0.7-1.3); GFR 133.3; POTASSIUM 3.7 mmol/L (3.5-5.1); TOTAL BILIRUBIN 2.7 mg/dL (0.2-1.0); TOTAL PROTEIN 7.6 g/dL (6.4-8.2)
[2019-09-12 07:00] VITALS: BP 143/98
[2019-09-12] MEDS: FAMOTIDINE 20 MG TABLET. PO SCH ×2 (08:06→21:16)
[2019-09-12] MEDS: FERROUS SULFATE 325 MG TABLET. PO SCH (08:07)
[2019-09-12] MEDS: SERTRALINE 50 MG TABLET. PO SCH (08:07)
[2019-09-12] MEDS: LORazepam 0.5 MG TABLET PO SCH ×3 (08:07→21:16)
[2019-09-12] MEDS: MULTIVIT INFUSN,ADULT 4,VIT K 10 ML, THIAMINE INJ 100 MG, FOLIC ACID INJ 1 MG in IV NOR... IV SCH (08:11)
--- NOTE | 2019-09-12 08:28 | RAD ---
ABDOMEN LTD History: Cirrhosis, varices Comparison: None. Findings: Multiple sonographic images of the abdomen are submitted. Pancreas is completely visualized due to bowel gas. Inferior vena cava is poorly visualized due to bowel gas. Right kidney measured 12.2 x 4.5 x 5.3 cm, no hydronephrosis. Echogenic focus in the gallbladder neck did not change in position with patient repositioning. Gallbladder wall is not thickened at 0.2 cm. There is no pericholecystic fluid. Right lobe of the liver measured 19.4 cm longitudinal. There is a nodular margin of the liver. There is diffuse coarsening of the hepatic echotexture. Common bile duct is within normal limits about 0.3 cm. There is to and fro flow in the portal vein. No significant free fluid is demonstrated. Impression: 1. There is coarsening of the hepatic echotexture which may be seen with hepatocellular disease, nodular margin of the liver as may be seen with cirrhosis. There is hepatomegaly. No significant free fluid is demonstrated. There is to and fro flow in the portal vein. 2. There is gallstone lodged at the gallbladder neck, no gallbladder wall thickening. Electronically signed by: Conner Estrella MD (09/12/2019 8:25 AM) [facility]
[2019-09-12] MEDS ORDERED: NON FORMULARY ITEM (Multivitamin (Multivitamins) 1 TAB) PO SCH (09:00)
--- NOTE | 2019-09-12 10:21 | PDOC ---
PROGRESS NOTES Chief Complaint Chief Complaint SEEN IN ER with behavioral complaints. Patient was recently discharged from [facility] approximately 3 days ago, mother called EMS for agitation, violent behavior. History of Present Illness History of Present Illness ASSESSMENT Suicide attempt with Haldol and alcohol. FALL, ABRASION LEFT forehead major depression Suicide attempt - waiting for psych bed Chronic pain epigastric and RUQ PAIN, radiates to back, worse with meals Hypomagnesemia Hypokalemia LEG pain// poss neuropathy schizophrenia, history of alpha-1 antitrypsin deficiency, DJD, heavy alcohol abuse, SEVERE TRANSAMINITIS, IMPROVING OFF ETOH Hepatic cirrhosis and findings of portal hypertension , C/W END ORGAN INJURY Esophageal varices are numerous and more notable in the interval. ON RECENT CT on sono 09/11 hepatocellular disease, nodular margin of the liver as may be seen with cirrhosis. There is hepatomegaly. No significant free fluid is demonstrated. There is to and fro flow in the portal vein. gallstone lodged at the gallbladder neck, no gallbladder wall thickening. RECENT CT Cholelithiasis. Distention of the gallbladder. No biliary dilatation or inflammatory change about the gallbladder. admitted clear liquids 1:1 observation. Consult Psychiatric Assessment Team. IV fluids. home meds. Full code. DVT prophylaxis. [facility] protocol. gi CONSULT ABDOMINAL SONO ACUTE hepatitis dx panel hold hepatotoxic drugs inr follow LFT'S UNSAFE DISCHARGE AT THIS TIME SERUM AMMONIA tsh GEN SURG CONSULT d/c iv stadol start iv dilaudid 1.5 mg q 3 hrs prn severe pain POOR PROGNOSIS d/w RN and PAT TEAM 38 MIN PT EXAM, CHART REVIEW, > 50% OF time spent with exam, chart review, pt care coordination Vitals Vitals Vital Signs Date Time Temp Pulse Resp B/P (MAP) Pulse Ox O2 Delivery O2 Flow Rate FiO2 09/12/19 09:33 16 Room Air 09/12/19 07:00 98.1 123 143/98 (113) 93 98.1 Physical Exam Physical Exam HEENT: Head is normocephalic, atraumatic, pupils were equally round and reactive to light and accommodation. He has got some abrasions on his face. NECK: Supple, no JVD, no thyromegaly was noted. LUNGS: Clear to auscultation in all lung topete without rhonchi or wheezing. HEART: RRR, S1, S2 present. Peripheral pulses intact, no obvious murmurs were noted. ABDOMEN: Soft, nontender. Positive bowel sounds no organomegaly, normal bowel sounds. EXTREMITIES: Without any cyanosis, clubbing, or edema. Pedal pulses intact, Homans sign is negative. NEUROLOGIC: Normal speech, normal tone. A & O x3, moves all extremities, no obvious focal deficits. He is quite weak, but he is asking for pain meds, seems depressed. PSYCHIATRIC: Normal affect, normal mood. Stable. SKIN: No ulcerations or rashes, good skin turgor, no jaundice. VASCULAR: Good capillary refill, neurovascular bundle appears to be intact. General: Alert, Oriented X3, Cooperative, moderate distress, Other (MILD TREMOR) Heart: Regular rate, Normal S1 Lungs: Clear Abdomen: Soft, Other (tender ruq no rebound) Extremities: No cyanosis Labs LABS PATIENT: DENISHA MCFARLAND ACCOUNT: [id number] : 1990 LOCATION: ER AGE: 29 SEX: M EXAM STATUS: REG ER ORD. PHYSICIAN: IRMA COOPER MD REASON: abdominal pain, epigastric, ETOH PROCEDURE: CT ABD PELV W/ IV CONTRST ONLY Examination: CT ABD PELV W/ IV CONTRST ONLY History: Abdominal pain, epigastric pain, alcoholism Comparison/Correlation: 06/21/2017 CT abdomen, chest, and pelvis with contrast Findings: Axial images of the abdomen and pelvis were obtained following IV contrast. Visualized lung bases are clear. Significant varices about the esophagus. Hiatal hernia is present. Nodular contour of the liver compatible with cirrhosis. 2.3 cm diameter calculus is present at the gallbladder neck. Distention of the gallbladder is noted slightly more than on prior exam. Splenomegaly is present with the spleen measuring 14.5 cm longitudinal. Varices involving the upper abdomen noted. Pancreas is unremarkable. No definite ascites. No enlarged abdominal or pelvic lymph nodes. Kidneys are unremarkable. Circumferential wall thickening of the colon is present diffusely. No extraluminal gas. No bowel obstruction. Urinary bladder is unremarkable as noted. The appendix is normal. Bony structures are unremarkable. Impression: Hiatal hernia. Hepatic cirrhosis and findings of portal hypertension including. Esophageal varices are numerous and more notable in the interval. Circumferential wall thickening of the colon concern for colitis. No significant surrounding stranding however no bowel obstruction. Cholelithiasis. Distention of the gallbladder. No biliary dilatation or inflammatory change about the gallbladder. PQRS Compliance Statement: One or more of the following individualized dose reduction techniques were utilized for this examination: 1. Automated exposure control 2. Adjustment of the mA and/or kV according to patient size 3. Use of iterative reconstruction technique Electronically signed by: Aleks Garg MD (08/17/2019 8:49 PM) [facility]BDOMEN [facility] History: Cirrhosis, varices Comparison: None. Findings: Multiple sonographic images of the abdomen are submitted. Pancreas is completely visualized due to bowel gas. Inferior vena cava is poorly visualized due to bowel gas. Right kidney measured 12.2 x 4.5 x 5.3 cm, no hydronephrosis. Echogenic focus in the gallbladder neck did not change in position with patient repositioning. Gallbladder wall is not thickened at 0.2 cm. There is no pericholecystic fluid. Right lobe of the liver measured 19.4 cm longitudinal. There is a nodular margin of the liver. There is diffuse coarsening of the hepatic echotexture. Common bile duct is within normal limits about 0.3 cm. There is to and fro flow in the portal vein. No significant free fluid is demonstrated. Impression: 1. There is coarsening of the hepatic echotexture which may be seen with hepatocellular disease, nodular margin of the liver as may be seen with cirrhosis. There is hepatomegaly. No significant free fluid is demonstrated. There is to and fro flow in the portal vein. 2. There is gallstone lodged at the gallbladder neck, no gallbladder wall thickening. Electronically signed by: Sonam Bowie MD (09/12/2019 8:25 AM) [facility] DICTATED and SIGNED BY: SONAM BOWIE MD DATE: 09/12/19 0825 Laboratory Tests Test 09/11/19 12:50 09/11/19 18:10 09/12/19 03:45 Prothrombin Time 17.4 SEC (11.7-14.0) Prothromb Time International Ratio 1.5 (0.8-1.1) Ammonia 53 mcmol/L (11-34) Thyroid Stimulating Hormone (TSH) 4.036 uIU/mL (0.358-3.74) Urine Opiates Screen Neg (NEG) Urine Methadone Screen Neg (NEG) Urine Barbiturates Neg (NEG) Urine Phencyclidine Screen Neg (NEG) Urine Amphetamine/Methamphetamine Neg (NEG) Urine Benzodiazepines Screen Pos (NEG) Urine Cocaine Screen Neg (NEG) Urine Cannabinoids Screen Neg (NEG) Urine Ethyl Alcohol Neg (NEG) White Blood Count 4.7 x10^3/uL (4.0-11.0) Red Blood Count 4.04 x10^6/uL (4.30-5.70) Hemoglobin 13.5 g/dL (13.0-17.5) Hematocrit 40.2 % (39.0-53.0) Mean Corpuscular Volume 100 fL (79-100) Mean Corpuscular Hemoglobin 34 pg (25-35) Mean Corpuscular Hemoglobin Concent 34 g/dL (31-37) Red Cell Distribution Width 15.3 % (11.5-14.5) Platelet Count 90 x10^3/uL (140-400) Neutrophils (%) (Auto) 65 % (31-73) Lymphocytes (%) (Auto) 20 % (24-48) Monocytes (%) (Auto) 12 % (0-9) Eosinophils (%) (Auto) 2 % (0-3) Basophils (%) (Auto) 1 % (0-3) Neutrophils # (Auto) 3.1 x10^3/uL (1.8-7.7) Lymphocytes # (Auto) 1.0 x10^3/uL (1.0-4.8) Monocytes # (Auto) 0.6 x10^3/uL (0.0-1.1) Eosinophils # (Auto) 0.1 x10^3/uL (0.0-0.7) Basophils # (Auto) 0.0 x10^3/uL (0.0-0.2) Sodium Level 139 mmol/L (136-145) Potassium Level 3.7 mmol/L (3.5-5.1) Chloride Level 101 mmol/L (98-107) Carbon Dioxide Level 28 mmol/L (21-32) Anion Gap 10 (6-14) Blood Urea Nitrogen 7 mg/dL (8-26) Creatinine 0.7 mg/dL (0.7-1.3) Estimated GFR (Cockcroft-Gault) 133.3 BUN/Creatinine Ratio 10 (6-20) Glucose Level 101 mg/dL (70-99) Calcium Level 9.2 mg/dL (8.5-10.1) Total Bilirubin 2.7 mg/dL (0.2-1.0) Aspartate Amino Transf (AST/SGOT) 271 U/L (15-37) Alanine Aminotransferase (ALT/SGPT) 234 U/L (16-63) Alkaline Phosphatase 291 U/L (46-116) Total Protein 7.6 g/dL (6.4-8.2) Albumin 3.2 g/dL (3.4-5.0) Albumin/Globulin Ratio 0.7 (1.0-1.7) Assessment and Plan Assessmemt and Plan Problems Medical Problems: (1) Aggressive behavior Status: Acute (2) Suicidal ideation Status: Acute Comment Review of Relevant I have reviewed the following items mc (where applicable) has been applied. Labs Laboratory Tests Test 09/10/19 14:30 09/11/19 03:00 09/11/19 12:50 09/11/19 18:10 White Blood Count 12.0 x10^3/uL (4.0-11.0) 9.6 x10^3/uL (4.0-11.0) Red Blood Count 4.90 x10^6/uL (4.30-5.70) 4.51 x10^6/uL (4.30-5.70) Hemoglobin 16.8 g/dL (13.0-17.5) 15.5 g/dL (13.0-17.5) Hematocrit 49.1 % (39.0-53.0) 44.5 % (39.0-53.0) Mean Corpuscular Volume 100 fL (79-100) 99 fL (79-100) Mean Corpuscular Hemoglobin 34 pg (25-35) 34 pg (25-35) Mean Corpuscular Hemoglobin Concent 34 g/dL (31-37) 35 g/dL (31-37) Red Cell Distribution Width 15.6 % (11.5-14.5) 15.6 % (11.5-14.5) Platelet Count 256 x10^3/uL (140-400) 181 x10^3/uL (140-400) Neutrophils (%) (Auto) 77 % (31-73) 68 % (31-73) Lymphocytes (%) (Auto) 17 % (24-48) 22 % (24-48) Monocytes (%) (Auto) 4 % (0-9) 8 % (0-9) Eosinophils (%) (Auto) 1 % (0-3) 1 % (0-3) Basophils (%) (Auto) 1 % (0-3) 1 % (0-3) Neutrophils # (Auto) 9.2 x10^3/uL (1.8-7.7) 6.5 x10^3/uL (1.8-7.7) Lymphocytes # (Auto) 2.0 x10^3/uL (1.0-4.8) 2.1 x10^3/uL (1.0-4.8) Monocytes # (Auto) 0.5 x10^3/uL (0.0-1.1) 0.8 x10^3/uL (0.0-1.1) Eosinophils # (Auto) 0.1 x10^3/uL (0.0-0.7) 0.1 x10^3/uL (0.0-0.7) Basophils # (Auto) 0.2 x10^3/uL (0.0-0.2) 0.1 x10^3/uL (0.0-0.2) Sodium Level 143 mmol/L (136-145) 143 mmol/L (136-145) Potassium Level 3.9 mmol/L (3.5-5.1) 3.6 mmol/L (3.5-5.1) Chloride Level 103 mmol/L (98-107) 105 mmol/L (98-107) Carbon Dioxide Level 22 mmol/L (21-32) 25 mmol/L (21-32) Anion Gap 18 (6-14) 13 (6-14) Blood Urea Nitrogen 6 mg/dL (8-26) 6 mg/dL (8-26) Creatinine 0.7 mg/dL (0.7-1.3) 0.6 mg/dL (0.7-1.3) Estimated GFR (Cockcroft-Gault) 133.3 159.3 BUN/Creatinine Ratio 9 (6-20) 10 (6-20) Glucose Level 124 mg/dL (70-99) 91 mg/dL (70-99) Calcium Level 8.9 mg/dL (8.5-10.1) 8.9 mg/dL (8.5-10.1) Total Bilirubin 2.8 mg/dL (0.2-1.0) 2.7 mg/dL (0.2-1.0) Aspartate Amino Transf (AST/SGOT) 398 U/L (15-37) 358 U/L (15-37) Alanine Aminotransferase (ALT/SGPT) 315 U/L (16-63) 267 U/L (16-63) Alkaline Phosphatase 303 U/L (46-116) 263 U/L (46-116) Total Protein 9.1 g/dL (6.4-8.2) 8.2 g/dL (6.4-8.2) Albumin 3.8 g/dL (3.4-5.0) 3.4 g/dL (3.4-5.0) Albumin/Globulin Ratio 0.7 (1.0-1.7) 0.7 (1.0-1.7) Salicylates Level < 0.2 mg/dL (2.8-20.0) Salicylate Last Dose Date Unk Salicylate Last Dose Time Unk Acetaminophen Level < 2.0 mcg/ml (10-30) Acetaminophen Last Dose Date Unh Acetaminophen Last Dose Time Unk Ethyl Alcohol Level 358 mg/dL (0-10) Prothrombin Time 17.4 SEC (11.7-14.0) Prothromb Time International Ratio 1.5 (0.8-1.1) Ammonia 53 mcmol/L (11-34) Thyroid Stimulating Hormone (TSH) 4.036 uIU/mL (0.358-3.74) Urine Opiates Screen Neg (NEG) Urine Methadone Screen Neg (NEG) Urine Barbiturates Neg (NEG) Urine Phencyclidine Screen Neg (NEG) Urine Amphetamine/Methamphetamine Neg (NEG) Urine Benzodiazepines Screen Pos (NEG) Urine Cocaine Screen Neg (NEG) Urine Cannabinoids Screen Neg (NEG) Urine Ethyl Alcohol Neg (NEG) Test 09/12/19 03:45 White Blood Count 4.7 x10^3/uL (4.0-11.0) Red Blood Count 4.04 x10^6/uL (4.30-5.70) Hemoglobin 13.5 g/dL (13.0-17.5) Hematocrit 40.2 % (39.0-53.0) Mean Corpuscular Volume 100 fL (79-100) Mean Corpuscular Hemoglobin 34 pg (25-35) Mean Corpuscular Hemoglobin Concent 34 g/dL (31-37) Red Cell Distribution Width 15.3 % (11.5-14.5) Platelet Count 90 x10^3/uL (140-400) Neutrophils (%) (Auto) 65 % (31-73) Lymphocytes (%) (Auto) 20 % (24-48) Monocytes (%) (Auto) 12 % (0-9) Eosinophils (%) (Auto) 2 % (0-3) Basophils (%) (Auto) 1 % (0-3) Neutrophils # (Auto) 3.1 x10^3/uL (1.8-7.7) Lymphocytes # (Auto) 1.0 x10^3/uL (1.0-4.8) Monocytes # (Auto) 0.6 x10^3/uL (0.0-1.1) Eosinophils # (Auto) 0.1 x10^3/uL (0.0-0.7) Basophils # (Auto) 0.0 x10^3/uL (0.0-0.2) Sodium Level 139 mmol/L (136-145) Potassium Level 3.7 mmol/L (3.5-5.1) Chloride Level 101 mmol/L (98-107) Carbon Dioxide Level 28 mmol/L (21-32) Anion Gap 10 (6-14) Blood Urea Nitrogen 7 mg/dL (8-26) Creatinine 0.7 mg/dL (0.7-1.3) Estimated GFR (Cockcroft-Gault) 133.3 BUN/Creatinine Ratio 10 (6-20) Glucose Level 101 mg/dL (70-99) Calcium Level 9.2 mg/dL (8.5-10.1) Total Bilirubin 2.7 mg/dL (0.2-1.0) Aspartate Amino Transf (AST/SGOT) 271 U/L (15-37) Alanine Aminotransferase (ALT/SGPT) 234 U/L (16-63) Alkaline Phosphatase 291 U/L (46-116) Total Protein 7.6 g/dL (6.4-8.2) Albumin 3.2 g/dL (3.4-5.0) Albumin/Globulin Ratio 0.7 (1.0-1.7) Laboratory Tests Test 09/11/19 12:50 09/11/19 18:10 09/12/19 03:45 Prothrombin Time 17.4 SEC (11.7-14.0) Prothromb Time International Ratio 1.5 (0.8-1.1) Ammonia 53 mcmol/L (11-34) Thyroid Stimulating Hormone (TSH) 4.036 uIU/mL (0.358-3.74) Urine Opiates Screen Neg (NEG) Urine Methadone Screen Neg (NEG) Urine Barbiturates Neg (NEG) Urine Phencyclidine Screen Neg (NEG) Urine Amphetamine/Methamphetamine Neg (NEG) Urine Benzodiazepines Screen Pos (NEG) Urine Cocaine Screen Neg (NEG) Urine Cannabinoids Screen Neg (NEG) Urine Ethyl Alcohol Neg (NEG) White Blood Count 4.7 x10^3/uL (4.0-11.0) Red Blood Count 4.04 x10^6/uL (4.30-5.70) Hemoglobin 13.5 g/dL (13.0-17.5) Hematocrit 40.2 % (39.0-53.0) Mean Corpuscular Volume 100 fL (79-100) Mean Corpuscular Hemoglobin 34 pg (25-35) Mean Corpuscular Hemoglobin Concent 34 g/dL (31-37) Red Cell Distribution Width 15.3 % (11.5-14.5) Platelet Count 90 x10^3/uL (140-400) Neutrophils (%) (Auto) 65 % (31-73) Lymphocytes (%) (Auto) 20 % (24-48) Monocytes (%) (Auto) 12 % (0-9) Eosinophils (%) (Auto) 2 % (0-3) Basophils (%) (Auto) 1 % (0-3) Neutrophils # (Auto) 3.1 x10^3/uL (1.8-7.7) Lymphocytes # (Auto) 1.0 x10^3/uL (1.0-4.8) Monocytes # (Auto) 0.6 x10^3/uL (0.0-1.1) Eosinophils # (Auto) 0.1 x10^3/uL (0.0-0.7) Basophils # (Auto) 0.0 x10^3/uL (0.0-0.2) Sodium Level 139 mmol/L (136-145) Potassium Level 3.7 mmol/L (3.5-5.1) Chloride Level 101 mmol/L (98-107) Carbon Dioxide Level 28 mmol/L (21-32) Anion Gap 10 (6-14) Blood Urea Nitrogen 7 mg/dL (8-26) Creatinine 0.7 mg/dL (0.7-1.3) Estimated GFR (Cockcroft-Gault) 133.3 BUN/Creatinine Ratio 10 (6-20) Glucose Level 101 mg/dL (70-99) Calcium Level 9.2 mg/dL (8.5-10.1) Total Bilirubin 2.7 mg/dL (0.2-1.0) Aspartate Amino Transf (AST/SGOT) 271 U/L (15-37) Alanine Aminotransferase (ALT/SGPT) 234 U/L (16-63) Alkaline Phosphatase 291 U/L (46-116) Total Protein 7.6 g/dL (6.4-8.2) Albumin 3.2 g/dL (3.4-5.0) Albumin/Globulin Ratio 0.7 (1.0-1.7) Medications Current Medications Ziprasidone (Geodon Im) 20 mg 1X ONCE IM Last administered on 09/10/19at 14:21; Start 09/10/19 at 14:00; Stop 09/10/19 at 14:07; Status DC Ketamine HCl (Ketamine) 11 mg 1X ONCE IV Last administered on 09/10/19at 16:14; Start 09/10/19 at 14:30; Stop 09/10/19 at 14:31; Status DC Sodium Chloride 1,000 ml @ 1,000 mls/hr 1X ONCE IV Last administered on 09/10/19at 15:10; Start 09/10/19 at 15:15; Stop 09/10/19 at 16:14; Status DC Ondansetron HCl (Zofran) 4 mg PRN Q8HRS PRN IV NAUSEA/VOMITING Last administered on 09/11/19at 08:32; Start 09/10/19 at 15:45; Stop 09/11/19 at 15:44; Status DC Multivitamins 10 ml/Thiamine HCl 100 mg/Folic Acid 1 mg/Sodium Chloride 1,011.2 ml @ 100 mls/ hr DAILY IV Last administered on 09/12/19at 08:11; Start 09/11/19 at 09:00; Stop 09/15/19 at 19:07 Multivitamins (Thera M Plus) 1 tab DAILY PO ; Start 09/16/19 at 09:00 Folic Acid (Folic Acid) 1 mg DAILY PO ; Start 09/16/19 at 09:00 Thiamine HCl 100 mg DAILY IM ; Start 09/16/19 at 09:00; Stop 09/16/19 at 09:01; Status Cancel Thiamine HCl 100 mg/Dextrose 51 ml @ 100 mls/hr DAILY IV ; Start 09/11/19 at 09:00; Stop 09/15/19 at 09:31; Status UNV Chlordiazepoxide (Librium) 50 mg PRN Q1HR PRN PO For CIWA 8-14 2ND CHOICE Last administered on 09/11/19at 19:52; Start 09/10/19 at 18:30 Lorazepam (Ativan) 4 mg PRN Q1HR PRN PO For CIWA 8-14; Start 09/10/19 at 18:30 Lorazepam (Ativan) 8 mg PRN Q1HR PRN PO For CIWA 15 or greater; Start 09/10/19 at 18:30 Lorazepam (Ativan Inj) 2 mg PRN Q1HR PRN IV For CIWA 8-14 Last administered on 09/12/19at 08:06; Start 09/10/19 at 18:30 Lorazepam (Ativan Inj) 4 mg PRN Q1HR PRN IV For CIWA 15 or greater Last administered on 09/12/19at 03:05; Start 09/10/19 at 18:30 Haloperidol Lactate (Haldol Inj) 5 mg PRN Q4HRS PRN IVP Hallucinatns,Confusn,Delirium; Start 09/10/19 at 18:30 Diphenhydramine HCl (Benadryl) 25 mg PRN Q15MIN PRN IVP EPS symptoms 2'Haldol admin Last administered on 09/11/19at 23:40; Start 09/10/19 at 18:30 Clonidine HCl (Catapres) 0.1 mg PRN Q1HR PRN PO SBP > 180 or DBP > 100, MRX3; Start 09/10/19 at 18:30 Lorazepam (Ativan Inj) 2 mg PRN Q15MIN PRN IV SEE COMMENTS; Start 09/10/19 at 18:30; Stop 09/11/19 at 11:22; Status DC Lorazepam (Ativan Inj) 4 mg PRN Q15MIN PRN IV SEE COMMENTS; Start 09/10/19 at 18:30; Stop 09/11/19 at 11:22; Status DC Butorphanol Tartrate (Stadol) 1 mg PRN Q6HRS PRN IV MODERATE PAIN 4-6 Last administered on 09/12/19 09:33; Start 09/11/19 at 00:30 Famotidine (Pepcid) 20 mg BID PO Last administered on 09/12/19 08:06; Start 09/11/19 at 12:00 Ferrous Sulfate (Feosol) 325 mg DAILYWBKFT PO Last administered on 09/12/19at 08:07; Start 09/11/19 at 12:00 Folic Acid (Folic Acid) 1 mg DAILY PO ; Start 09/11/19 at 12:00; Status UNV Lorazepam (Ativan) 0.5 mg TID PO Last administered on 09/12/19 08:07; Start 09/11/19 at 14:00 Prazosin HCl (Minipress) 1 mg QHS PO Last administered on 09/11/19at 19:51; Start 09/11/19 at 21:00 Sertraline HCl (Zoloft) 50 mg DAILY PO Last administered on 09/12/19 08:07; Start 09/11/19 at 12:00 Non-Formulary Medication (Multivitamin (Multivitamins)) 1 tab DAILY PO ; Start 09/12/19 at 09:00; Status UNV Thiamine Mononitrate (Vitamin B-1) 100 mg DAILY PO ; Start 09/16/19 at 09:00 Ondansetron HCl (Zofran) 4 mg Q4HRS PRN IVP NAUSEA/VOMITING Last administered on 09/11/19at 16:58; Start 09/11/19 at 16:15 Labetalol HCl (Normodyne Iv Push) 10 mg PRN Q4HRS PRN IVP HYPERTENSION Last administered on 09/11/19at 23:44; Start 09/11/19 at 23:45 Active Scripts Active Ibuprofen 600 Mg Tablet 600 Mg PO PRN Q6HRS PRN 10 Days Lorazepam 0.5 Mg Tablet 1 Tab PO TID 7 Days Multivitamins (Multivitamin) 1 Each Tablet 1 Tab PO DAILY Folic Acid 1 Mg Tablet 1 Tab PO DAILY Vitamin B-1 (Thiamine Hcl) 100 Mg Tablet 100 Mg PO DAILY 30 Days Famotidine 20 Mg Tablet 20 Mg PO BID 30 Days Feosol (Ferrous Sulfate) 325 Mg Tablet 325 Mg PO DAILYWBKFT 30 Days Reported Gabapentin 600 Mg Tablet 600 Mg PO TID Haloperidol 5 Mg Tablet 1 Tab PO BID Zyprexa (Olanzapine) 5 Mg Tablet 1 Tab PO QHS Prazosin Hcl 1 Mg Capsule 1 Cap PO QHS Trazodone Hcl 100 Mg Tablet 1 Tab PO QHS Hydroxyzine Hcl 25 Mg Tablet 3 Tab PO TID Zoloft (Sertraline Hcl) 50 Mg Tablet 1 Tab PO DAILY Vitals/I & O Vital Sign - Last 24 Hours 09/11/19 09/11/19 09/11/19 09/11/19 11:20 14:08 14:40 15:00 Temp 98.3 99.1 98.3 99.1 Pulse 110 103 Resp 16 17 17 18 B/P (MAP) 146/90 (108) 135/84 (101) Pulse Ox 93 93 O2 Delivery Room Air Room Air Room Air Room Air 09/11/19 09/11/19 09/11/19 09/11/19 19:01 19:51 23:00 23:44 Temp 98.2 98.4 98.2 98.4 Pulse 111 111 133 162 Resp 20 20 B/P (MAP) 150/107 (121) 150/107 141/102 (115) 141/102 Pulse Ox 95 96 O2 Delivery Room Air Room Air 09/12/19 09/12/19 09/12/19 09/12/19 03:12 03:13 07:00 09:33 Temp 98.2 98.1 98.2 98.1 Pulse 124 123 Resp 20 18 16 B/P (MAP) 133/89 (104) 143/98 (113) Pulse Ox 94 93 O2 Delivery Room Air Room Air Room Air Room Air Intake and Output 09/11/19 09/11/19 09/12/19 15:00 23:00 07:00 Intake Total 350 ml 500 ml Balance 350 ml 500 ml FULBRIGHT,KORY W MD Sep 12, 2019 10:21
[2019-09-12 11:00] VITALS: BP 155/102
[2019-09-12] MEDS: HYDROmorphone 2 MG/ML VIAL IV PRN ×4 (12:46→23:14)
--- NOTE | 2019-09-12 14:23 | PDOC ---
G I PROGRESS NOTE Reason for Follow-up Transaminitis/substance abuse Subjective Patient sleepy Physical Exam Lungs decreased BS CV S1 S2 ABD +BS, soft, nontender Review of Relevant I have reviewed the following items mc (where applicable) has been applied. Labs Laboratory Tests Test 09/10/19 14:30 09/11/19 03:00 09/11/19 12:50 09/11/19 18:10 White Blood Count 12.0 x10^3/uL (4.0-11.0) 9.6 x10^3/uL (4.0-11.0) Red Blood Count 4.90 x10^6/uL (4.30-5.70) 4.51 x10^6/uL (4.30-5.70) Hemoglobin 16.8 g/dL (13.0-17.5) 15.5 g/dL (13.0-17.5) Hematocrit 49.1 % (39.0-53.0) 44.5 % (39.0-53.0) Mean Corpuscular Volume 100 fL (79-100) 99 fL (79-100) Mean Corpuscular Hemoglobin 34 pg (25-35) 34 pg (25-35) Mean Corpuscular Hemoglobin Concent 34 g/dL (31-37) 35 g/dL (31-37) Red Cell Distribution Width 15.6 % (11.5-14.5) 15.6 % (11.5-14.5) Platelet Count 256 x10^3/uL (140-400) 181 x10^3/uL (140-400) Neutrophils (%) (Auto) 77 % (31-73) 68 % (31-73) Lymphocytes (%) (Auto) 17 % (24-48) 22 % (24-48) Monocytes (%) (Auto) 4 % (0-9) 8 % (0-9) Eosinophils (%) (Auto) 1 % (0-3) 1 % (0-3) Basophils (%) (Auto) 1 % (0-3) 1 % (0-3) Neutrophils # (Auto) 9.2 x10^3/uL (1.8-7.7) 6.5 x10^3/uL (1.8-7.7) Lymphocytes # (Auto) 2.0 x10^3/uL (1.0-4.8) 2.1 x10^3/uL (1.0-4.8) Monocytes # (Auto) 0.5 x10^3/uL (0.0-1.1) 0.8 x10^3/uL (0.0-1.1) Eosinophils # (Auto) 0.1 x10^3/uL (0.0-0.7) 0.1 x10^3/uL (0.0-0.7) Basophils # (Auto) 0.2 x10^3/uL (0.0-0.2) 0.1 x10^3/uL (0.0-0.2) Sodium Level 143 mmol/L (136-145) 143 mmol/L (136-145) Potassium Level 3.9 mmol/L (3.5-5.1) 3.6 mmol/L (3.5-5.1) Chloride Level 103 mmol/L (98-107) 105 mmol/L (98-107) Carbon Dioxide Level 22 mmol/L (21-32) 25 mmol/L (21-32) Anion Gap 18 (6-14) 13 (6-14) Blood Urea Nitrogen 6 mg/dL (8-26) 6 mg/dL (8-26) Creatinine 0.7 mg/dL (0.7-1.3) 0.6 mg/dL (0.7-1.3) Estimated GFR (Cockcroft-Gault) 133.3 159.3 BUN/Creatinine Ratio 9 (6-20) 10 (6-20) Glucose Level 124 mg/dL (70-99) 91 mg/dL (70-99) Calcium Level 8.9 mg/dL (8.5-10.1) 8.9 mg/dL (8.5-10.1) Total Bilirubin 2.8 mg/dL (0.2-1.0) 2.7 mg/dL (0.2-1.0) Aspartate Amino Transf (AST/SGOT) 398 U/L (15-37) 358 U/L (15-37) Alanine Aminotransferase (ALT/SGPT) 315 U/L (16-63) 267 U/L (16-63) Alkaline Phosphatase 303 U/L (46-116) 263 U/L (46-116) Total Protein 9.1 g/dL (6.4-8.2) 8.2 g/dL (6.4-8.2) Albumin 3.8 g/dL (3.4-5.0) 3.4 g/dL (3.4-5.0) Albumin/Globulin Ratio 0.7 (1.0-1.7) 0.7 (1.0-1.7) Salicylates Level < 0.2 mg/dL (2.8-20.0) Salicylate Last Dose Date Unk Salicylate Last Dose Time Unk Acetaminophen Level < 2.0 mcg/ml (10-30) Acetaminophen Last Dose Date Unh Acetaminophen Last Dose Time Unk Ethyl Alcohol Level 358 mg/dL (0-10) Prothrombin Time 17.4 SEC (11.7-14.0) Prothromb Time International Ratio 1.5 (0.8-1.1) Ammonia 53 mcmol/L (11-34) Thyroid Stimulating Hormone (TSH) 4.036 uIU/mL (0.358-3.74) Urine Opiates Screen Neg (NEG) Urine Methadone Screen Neg (NEG) Urine Barbiturates Neg (NEG) Urine Phencyclidine Screen Neg (NEG) Urine Amphetamine/Methamphetamine Neg (NEG) Urine Benzodiazepines Screen Pos (NEG) Urine Cocaine Screen Neg (NEG) Urine Cannabinoids Screen Neg (NEG) Urine Ethyl Alcohol Neg (NEG) Test 09/12/19 03:45 White Blood Count 4.7 x10^3/uL (4.0-11.0) Red Blood Count 4.04 x10^6/uL (4.30-5.70) Hemoglobin 13.5 g/dL (13.0-17.5) Hematocrit 40.2 % (39.0-53.0) Mean Corpuscular Volume 100 fL (79-100) Mean Corpuscular Hemoglobin 34 pg (25-35) Mean Corpuscular Hemoglobin Concent 34 g/dL (31-37) Red Cell Distribution Width 15.3 % (11.5-14.5) Platelet Count 90 x10^3/uL (140-400) Neutrophils (%) (Auto) 65 % (31-73) Lymphocytes (%) (Auto) 20 % (24-48) Monocytes (%) (Auto) 12 % (0-9) Eosinophils (%) (Auto) 2 % (0-3) Basophils (%) (Auto) 1 % (0-3) Neutrophils # (Auto) 3.1 x10^3/uL (1.8-7.7) Lymphocytes # (Auto) 1.0 x10^3/uL (1.0-4.8) Monocytes # (Auto) 0.6 x10^3/uL (0.0-1.1) Eosinophils # (Auto) 0.1 x10^3/uL (0.0-0.7) Basophils # (Auto) 0.0 x10^3/uL (0.0-0.2) Sodium Level 139 mmol/L (136-145) Potassium Level 3.7 mmol/L (3.5-5.1) Chloride Level 101 mmol/L (98-107) Carbon Dioxide Level 28 mmol/L (21-32) Anion Gap 10 (6-14) Blood Urea Nitrogen 7 mg/dL (8-26) Creatinine 0.7 mg/dL (0.7-1.3) Estimated GFR (Cockcroft-Gault) 133.3 BUN/Creatinine Ratio 10 (6-20) Glucose Level 101 mg/dL (70-99) Calcium Level 9.2 mg/dL (8.5-10.1) Total Bilirubin 2.7 mg/dL (0.2-1.0) Aspartate Amino Transf (AST/SGOT) 271 U/L (15-37) Alanine Aminotransferase (ALT/SGPT) 234 U/L (16-63) Alkaline Phosphatase 291 U/L (46-116) Total Protein 7.6 g/dL (6.4-8.2) Albumin 3.2 g/dL (3.4-5.0) Albumin/Globulin Ratio 0.7 (1.0-1.7) Laboratory Tests Test 09/11/19 18:10 09/12/19 03:45 Urine Opiates Screen Neg (NEG) Urine Methadone Screen Neg (NEG) Urine Barbiturates Neg (NEG) Urine Phencyclidine Screen Neg (NEG) Urine Amphetamine/Methamphetamine Neg (NEG) Urine Benzodiazepines Screen Pos (NEG) Urine Cocaine Screen Neg (NEG) Urine Cannabinoids Screen Neg (NEG) Urine Ethyl Alcohol Neg (NEG) White Blood Count 4.7 x10^3/uL (4.0-11.0) Red Blood Count 4.04 x10^6/uL (4.30-5.70) Hemoglobin 13.5 g/dL (13.0-17.5) Hematocrit 40.2 % (39.0-53.0) Mean Corpuscular Volume 100 fL (79-100) Mean Corpuscular Hemoglobin 34 pg (25-35) Mean Corpuscular Hemoglobin Concent 34 g/dL (31-37) Red Cell Distribution Width 15.3 % (11.5-14.5) Platelet Count 90 x10^3/uL (140-400) Neutrophils (%) (Auto) 65 % (31-73) Lymphocytes (%) (Auto) 20 % (24-48) Monocytes (%) (Auto) 12 % (0-9) Eosinophils (%) (Auto) 2 % (0-3) Basophils (%) (Auto) 1 % (0-3) Neutrophils # (Auto) 3.1 x10^3/uL (1.8-7.7) Lymphocytes # (Auto) 1.0 x10^3/uL (1.0-4.8) Monocytes # (Auto) 0.6 x10^3/uL (0.0-1.1) Eosinophils # (Auto) 0.1 x10^3/uL (0.0-0.7) Basophils # (Auto) 0.0 x10^3/uL (0.0-0.2) Sodium Level 139 mmol/L (136-145) Potassium Level 3.7 mmol/L (3.5-5.1) Chloride Level 101 mmol/L (98-107) Carbon Dioxide Level 28 mmol/L (21-32) Anion Gap 10 (6-14) Blood Urea Nitrogen 7 mg/dL (8-26) Creatinine 0.7 mg/dL (0.7-1.3) Estimated GFR (Cockcroft-Gault) 133.3 BUN/Creatinine Ratio 10 (6-20) Glucose Level 101 mg/dL (70-99) Calcium Level 9.2 mg/dL (8.5-10.1) Total Bilirubin 2.7 mg/dL (0.2-1.0) Aspartate Amino Transf (AST/SGOT) 271 U/L (15-37) Alanine Aminotransferase (ALT/SGPT) 234 U/L (16-63) Alkaline Phosphatase 291 U/L (46-116) Total Protein 7.6 g/dL (6.4-8.2) Albumin 3.2 g/dL (3.4-5.0) Albumin/Globulin Ratio 0.7 (1.0-1.7) Medications Current Medications Ziprasidone (Geodon Im) 20 mg 1X ONCE IM Last administered on 09/10/19at 14:21; Start 09/10/19 at 14:00; Stop 09/10/19 at 14:07; Status DC Ketamine HCl (Ketamine) 11 mg 1X ONCE IV Last administered on 09/10/19at 16:14; Start 09/10/19 at 14:30; Stop 09/10/19 at 14:31; Status DC Sodium Chloride 1,000 ml @ 1,000 mls/hr 1X ONCE IV Last administered on 09/10/19at 15:10; Start 09/10/19 at 15:15; Stop 09/10/19 at 16:14; Status DC Ondansetron HCl (Zofran) 4 mg PRN Q8HRS PRN IV NAUSEA/VOMITING Last administered on 09/11/19at 08:32; Start 09/10/19 at 15:45; Stop 09/11/19 at 15:44; Status DC Multivitamins 10 ml/Thiamine HCl 100 mg/Folic Acid 1 mg/Sodium Chloride 1,011.2 ml @ 100 mls/ hr DAILY IV Last administered on 09/12/19at 08:11; Start 09/11/19 at 09:00; Stop 09/15/19 at 19:07 Multivitamins (Thera M Plus) 1 tab DAILY PO ; Start 09/16/19 at 09:00 Folic Acid (Folic Acid) 1 mg DAILY PO ; Start 09/16/19 at 09:00 Thiamine HCl 100 mg DAILY IM ; Start 09/16/19 at 09:00; Stop 09/16/19 at 09:01; Status Cancel Thiamine HCl 100 mg/Dextrose 51 ml @ 100 mls/hr DAILY IV ; Start 09/11/19 at 09:00; Stop 09/15/19 at 09:31; Status UNV Chlordiazepoxide (Librium) 50 mg PRN Q1HR PRN PO For CIWA 8-14 2ND CHOICE Last administered on 09/11/19at 19:52; Start 09/10/19 at 18:30 Lorazepam (Ativan) 4 mg PRN Q1HR PRN PO For CIWA 8-14; Start 09/10/19 at 18:30 Lorazepam (Ativan) 8 mg PRN Q1HR PRN PO For CIWA 15 or greater; Start 09/10/19 at 18:30 Lorazepam (Ativan Inj) 2 mg PRN Q1HR PRN IV For CIWA 8-14 Last administered on 09/12/19at 08:06; Start 09/10/19 at 18:30 Lorazepam (Ativan Inj) 4 mg PRN Q1HR PRN IV For CIWA 15 or greater Last administered on 09/12/19at 03:05; Start 09/10/19 at 18:30 Haloperidol Lactate (Haldol Inj) 5 mg PRN Q4HRS PRN IVP Hallucinatns,Confusn,Delirium; Start 09/10/19 at 18:30 Diphenhydramine HCl (Benadryl) 25 mg PRN Q15MIN PRN IVP EPS symptoms 2'Haldol admin Last administered on 09/11/19at 23:40; Start 09/10/19 at 18:30 Clonidine HCl (Catapres) 0.1 mg PRN Q1HR PRN PO SBP > 180 or DBP > 100, MRX3; Start 09/10/19 at 18:30 Lorazepam (Ativan Inj) 2 mg PRN Q15MIN PRN IV SEE COMMENTS; Start 09/10/19 at 18:30; Stop 09/11/19 at 11:22; Status DC Lorazepam (Ativan Inj) 4 mg PRN Q15MIN PRN IV SEE COMMENTS; Start 09/10/19 at 18:30; Stop 09/11/19 at 11:22; Status DC Butorphanol Tartrate (Stadol) 1 mg PRN Q6HRS PRN IV MODERATE PAIN 4-6 Last administered on 09/12/19at 09:33; Start 09/11/19 at 00:30; Stop 09/12/19 at 12:06; Status DC Famotidine (Pepcid) 20 mg BID PO Last administered on 09/12/19at 08:06; Start 09/11/19 at 12:00 Ferrous Sulfate (Feosol) 325 mg DAILYWBKFT PO Last administered on 09/12/19at 08:07; Start 09/11/19 at 12:00 Folic Acid (Folic Acid) 1 mg DAILY PO ; Start 09/11/19 at 12:00; Status UNV Lorazepam (Ativan) 0.5 mg TID PO Last administered on 09/12/19 08:07; Start 09/11/19 at 14:00 Prazosin HCl (Minipress) 1 mg QHS PO Last administered on 09/11/19at 19:51; St art 09/11/19 at 21:00 Sertraline HCl (Zoloft) 50 mg DAILY PO Last administered on 09/12/19 08:07; Start 09/11/19 at 12:00 Non-Formulary Medication (Multivitamin (Multivitamins)) 1 tab DAILY PO ; Start 09/12/19 at 09:00; Status UNV Thiamine Mononitrate (Vitamin B-1) 100 mg DAILY PO ; Start 09/16/19 at 09:00 Ondansetron HCl (Zofran) 4 mg Q4HRS PRN IVP NAUSEA/VOMITING Last administered on 09/11/19at 16:58; Start 09/11/19 at 16:15 Labetalol HCl (Normodyne Iv Push) 10 mg PRN Q4HRS PRN IVP HYPERTENSION Last administered on 09/11/19 23:44; Start 09/11/19 at 23:45 Hydromorphone HCl (Dilaudid) 1.5 mg PRN Q3HRS PRN IV PAIN Last administered on 09/12/19 12:46; Start 09/12/19 at 12:15 Active Scripts Active Ibuprofen 600 Mg Tablet 600 Mg PO PRN Q6HRS PRN 10 Days Lorazepam 0.5 Mg Tablet 1 Tab PO TID 7 Days Multivitamins (Multivitamin) 1 Each Tablet 1 Tab PO DAILY Folic Acid 1 Mg Tablet 1 Tab PO DAILY Vitamin B-1 (Thiamine Hcl) 100 Mg Tablet 100 Mg PO DAILY 30 Days Famotidine 20 Mg Tablet 20 Mg PO BID 30 Days Feosol (Ferrous Sulfate) 325 Mg Tablet 325 Mg PO DAILYWBKFT 30 Days Reported Gabapentin 600 Mg Tablet 600 Mg PO TID Haloperidol 5 Mg Tablet 1 Tab PO BID Zyprexa (Olanzapine) 5 Mg Tablet 1 Tab PO QHS Prazosin Hcl 1 Mg Capsule 1 Cap PO QHS Trazodone Hcl 100 Mg Tablet 1 Tab PO QHS Hydroxyzine Hcl 25 Mg Tablet 3 Tab PO TID Zoloft (Sertraline Hcl) 50 Mg Tablet 1 Tab PO DAILY Vitals/I & O Vital Sign - Last 24 Hours 09/11/19 09/11/19 09/11/19 09/11/19 14:40 15:00 19:01 19:51 Temp 99.1 98.2 99.1 98.2 Pulse 103 111 111 Resp 17 18 20 B/P (MAP) 135/84 (101) 150/107 (121) 150/107 Pulse Ox 93 95 O2 Delivery Room Air Room Air Room Air 09/11/19 09/11/19 09/12/19 09/12/19 23:00 23:44 03:12 03:13 Temp 98.4 98.2 98.4 98.2 Pulse 133 162 124 Resp 20 20 B/P (MAP) 141/102 (115) 141/102 133/89 (104) Pulse Ox 96 94 O2 Delivery Room Air Room Air Room Air 09/12/19 09/12/19 09/12/19 09/12/19 07:00 08:00 09:33 10:05 Temp 98.1 98.1 Pulse 123 Resp 18 16 17 B/P (MAP) 143/98 (113) Pulse Ox 93 O2 Delivery Room Air Room Air Room Air Room Air 09/12/19 09/12/19 11:00 12:46 Temp 98.6 98.6 Pulse 114 Resp 16 18 B/P (MAP) 155/102 (119) Pulse Ox 94 O2 Delivery Room Air Room Air Intake and Output 09/11/19 09/11/19 09/12/19 15:00 23:00 07:00 Intake Total 350 ml 500 ml Balance 350 ml 500 ml Problem List Problems Medical Problems: (1) Aggressive behavior Status: Acute (2) Suicidal ideation Status: Acute Assessment Transaminitis- with poly substance abuse, LFTS stable, CPm REGINA CAMPO MD Sep 12, 2019 14:23
[2019-09-12 15:00] VITALS: BP 130/87
[2019-09-12] MEDS: ONDANSETRON PF 4 MG/2 ML VIAL. IVP PRN (17:05)
[2019-09-12 19:00] VITALS: BP 148/102
[2019-09-12] MEDS ORDERED: IBUPROFEN 400 MG TABLET. PO PRN (20:15)
[2019-09-12] MEDS: PRAZOSIN 1 MG CAPSULE. PO SCH (21:16)
[2019-09-12 23:00] VITALS: BP 136/90
[2019-09-13 03:00] VITALS: BP 139/94
[2019-09-13] MEDS: HYDROmorphone 2 MG/ML VIAL IV PRN ×4 (03:53→15:00)
[2019-09-13 07:54] VITALS: BP 143/88
[2019-09-13] MEDS: LORazepam 0.5 MG TABLET PO SCH ×3 (08:16→21:00)
[2019-09-13] MEDS: FAMOTIDINE 20 MG TABLET. PO SCH (08:16)
[2019-09-13] MEDS: SERTRALINE 50 MG TABLET. PO SCH (08:16)
[2019-09-13] MEDS: FERROUS SULFATE 325 MG TABLET. PO SCH (08:16)
[2019-09-13] MEDS: MULTIVIT INFUSN,ADULT 4,VIT K 10 ML, THIAMINE INJ 100 MG, FOLIC ACID INJ 1 MG in IV NOR... IV SCH (08:17)
--- NOTE | 2019-09-13 08:46 | PDOC ---
PROGRESS NOTES Chief Complaint Chief Complaint Assessment/Plan: EtOH abuse - with acute intoxication on admission Suicide attempt with Haldol and alcohol - patient now denies FALL, ABRASION LEFT forehead major depression Chronic pain epigastric and RUQ PAIN, radiates to back, worse with meals Hypomagnesemia Hypokalemia LEG pain// poss neuropathy schizophrenia, history of alpha-1 antitrypsin deficiency - MZ mutation DJD, TRANSAMINITIS, IMPROVING OFF ETOH Hepatic cirrhosis and findings of portal hypertension , C/W END ORGAN INJURY Esophageal varices are numerous and more notable in the interval. ON RECENT CT gallstone lodged at the gallbladder neck, no gallbladder wall thickening - seen by general surgery Plan: clear liquids 1:1 observation. Consult Psychiatric Assessment Team. IV fluids. home meds. Full code. DVT prophylaxis. CIWA protocol. gi CONSULT hold hepatotoxic drugs inr follow LFT'S UNSAFE DISCHARGE AT THIS TIME SERUM AMMONIA tsh GEN SURG CONSULT d/c iv stadol decrease iv dilaudid and add oral pain meds POOR PROGNOSIS d/w RN and PAT TEAM 38 MIN PT EXAM, CHART REVIEW, > 50% OF time spent with exam, chart review, pt care coordination History of Present Illness History of Present Illness Mr Dsouza is a 29-year-old male who has history of schizophrenia?, history of previous suicidal attempts, history of alcohol abuse, DJD, and h/o alpha-1 antitrypsin deficiency. He was brought into the hospital after he took a handful of haldol and ingested alcohol. Has been seen by neurology and GI is consulted as well. He is stating he has severe pain, falls asleep easily. He denies a new suicide attempt, notes he did just as he told me he would and went home and started drinking after leaving inpatient psych. Vitals Vitals Vital Signs Date Time Temp Pulse Resp B/P (MAP) Pulse Ox O2 Delivery O2 Flow Rate FiO2 09/13/19 08:00 16 Nasal Cannula 1.0 09/13/19 07:54 98.3 100 143/88 (106) 100 98.3 Physical Exam Physical Exam HEENT: Head is normocephalic, atraumatic, pupils were equally round and reactive to light and accommodation. He has got some abrasions on his face. NECK: Supple, no JVD, no thyromegaly was noted. LUNGS: Clear to auscultation in all lung topete without rhonchi or wheezing. HEART: RRR, S1, S2 present. Peripheral pulses intact, no obvious murmurs were noted. ABDOMEN: Soft, nontender. Positive bowel sounds no organomegaly, normal bowel sounds. EXTREMITIES: Without any cyanosis, clubbing, or edema. Pedal pulses intact, Homans sign is negative. NEUROLOGIC: Normal speech, normal tone. A & O x3, moves all extremities, no obvious focal deficits. He is quite weak, but he is asking for pain meds, seems depressed. PSYCHIATRIC: Normal affect, normal mood. Stable. SKIN: No ulcerations or rashes, good skin turgor, no jaundice. VASCULAR: Good capillary refill, neurovascular bundle appears to be intact. General: Alert, Oriented X3, Cooperative, moderate distress, Other (MILD TREMOR) Heart: Regular rate, Normal S1 Lungs: Clear Abdomen: Soft, Other (tender ruq no rebound) Extremities: No cyanosis Assessment and Plan Assessmemt and Plan Problems Medical Problems: (1) Aggressive behavior Status: Acute (2) Alcohol intoxication Status: Chronic (3) Suicidal ideation Status: Acute Comment Review of Relevant I have reviewed the following items mc (where applicable) has been applied. Labs Laboratory Tests Test 09/11/19 12:50 09/11/19 18:10 09/12/19 03:45 Prothrombin Time 17.4 SEC (11.7-14.0) Prothromb Time International Ratio 1.5 (0.8-1.1) Ammonia 53 mcmol/L (11-34) Thyroid Stimulating Hormone (TSH) 4.036 uIU/mL (0.358-3.74) Urine Opiates Screen Neg (NEG) Urine Methadone Screen Neg (NEG) Urine Barbiturates Neg (NEG) Urine Phencyclidine Screen Neg (NEG) Urine Amphetamine/Methamphetamine Neg (NEG) Urine Benzodiazepines Screen Pos (NEG) Urine Cocaine Screen Neg (NEG) Urine Cannabinoids Screen Neg (NEG) Urine Ethyl Alcohol Neg (NEG) White Blood Count 4.7 x10^3/uL (4.0-11.0) Red Blood Count 4.04 x10^6/uL (4.30-5.70) Hemoglobin 13.5 g/dL (13.0-17.5) Hematocrit 40.2 % (39.0-53.0) Mean Corpuscular Volume 100 fL (79-100) Mean Corpuscular Hemoglobin 34 pg (25-35) Mean Corpuscular Hemoglobin Concent 34 g/dL (31-37) Red Cell Distribution Width 15.3 % (11.5-14.5) Platelet Count 90 x10^3/uL (140-400) Neutrophils (%) (Auto) 65 % (31-73) Lymphocytes (%) (Auto) 20 % (24-48) Monocytes (%) (Auto) 12 % (0-9) Eosinophils (%) (Auto) 2 % (0-3) Basophils (%) (Auto) 1 % (0-3) Neutrophils # (Auto) 3.1 x10^3/uL (1.8-7.7) Lymphocytes # (Auto) 1.0 x10^3/uL (1.0-4.8) Monocytes # (Auto) 0.6 x10^3/uL (0.0-1.1) Eosinophils # (Auto) 0.1 x10^3/uL (0.0-0.7) Basophils # (Auto) 0.0 x10^3/uL (0.0-0.2) Sodium Level 139 mmol/L (136-145) Potassium Level 3.7 mmol/L (3.5-5.1) Chloride Level 101 mmol/L (98-107) Carbon Dioxide Level 28 mmol/L (21-32) Anion Gap 10 (6-14) Blood Urea Nitrogen 7 mg/dL (8-26) Creatinine 0.7 mg/dL (0.7-1.3) Estimated GFR (Cockcroft-Gault) 133.3 BUN/Creatinine Ratio 10 (6-20) Glucose Level 101 mg/dL (70-99) Calcium Level 9.2 mg/dL (8.5-10.1) Total Bilirubin 2.7 mg/dL (0.2-1.0) Aspartate Amino Transf (AST/SGOT) 271 U/L (15-37) Alanine Aminotransferase (ALT/SGPT) 234 U/L (16-63) Alkaline Phosphatase 291 U/L (46-116) Total Protein 7.6 g/dL (6.4-8.2) Albumin 3.2 g/dL (3.4-5.0) Albumin/Globulin Ratio 0.7 (1.0-1.7) Medications Current Medications Ziprasidone (Geodon Im) 20 mg 1X ONCE IM Last administered on 09/10/19at 14:21; Start 09/10/19 at 14:00; Stop 09/10/19 at 14:07; Status DC Ketamine HCl (Ketamine) 11 mg 1X ONCE IV Last administered on 09/10/19at 16:14; Start 09/10/19 at 14:30; Stop 09/10/19 at 14:31; Status DC Sodium Chloride 1,000 ml @ 1,000 mls/hr 1X ONCE IV Last administered on 09/10/19at 15:10; Start 09/10/19 at 15:15; Stop 09/10/19 at 16:14; Status DC Ondansetron HCl (Zofran) 4 mg PRN Q8HRS PRN IV NAUSEA/VOMITING Last administere d on 09/11/19at 08:32; Start 09/10/19 at 15:45; Stop 09/11/19 at 15:44; Status DC Multivitamins 10 ml/Thiamine HCl 100 mg/Folic Acid 1 mg/Sodium Chloride 1,011.2 ml @ 100 mls/ hr DAILY IV Last administered on 09/13/19at 08:17; Start 09/11/19 at 09:00; Stop 09/15/19 at 19:07 Multivitamins (Thera M Plus) 1 tab DAILY PO ; Start 09/16/19 at 09:00 Folic Acid (Folic Acid) 1 mg DAILY PO ; Start 09/16/19 at 09:00 Thiamine HCl 100 mg DAILY IM ; Start 09/16/19 at 09:00; Stop 09/16/19 at 09:01; Status Cancel Thiamine HCl 100 mg/Dextrose 51 ml @ 100 mls/hr DAILY IV ; Start 09/11/19 at 09:00; Stop 09/15/19 at 09:31; Status UNV Chlordiazepoxide (Librium) 50 mg PRN Q1HR PRN PO For CIWA 8-14 2ND CHOICE Last administered on 09/11/19at 19:52; Start 09/10/19 at 18:30 Lorazepam (Ativan) 4 mg PRN Q1HR PRN PO For CIWA 8-14; Start 09/10/19 at 18:30 Lorazepam (Ativan) 8 mg PRN Q1HR PRN PO For CIWA 15 or greater; Start 09/10/19 at 18:30 Lorazepam (Ativan Inj) 2 mg PRN Q1HR PRN IV For CIWA 8-14 Last administered on 09/13/19at 08:16; Start 09/10/19 at 18:30 Lorazepam (Ativan Inj) 4 mg PRN Q1HR PRN IV For CIWA 15 or greater Last administered on 09/12/19at 03:05; Start 09/10/19 at 18:30 Haloperidol Lactate (Haldol Inj) 5 mg PRN Q4HRS PRN IVP Hallucinatns,Confusn ,Delirium; Start 09/10/19 at 18:30 Diphenhydramine HCl (Benadryl) 25 mg PRN Q15MIN PRN IVP EPS symptoms 2'Haldol admin Last administered on 09/11/19at 23:40; Start 09/10/19 at 18:30 Clonidine HCl (Catapres) 0.1 mg PRN Q1HR PRN PO SBP > 180 or DBP > 100, MRX3; Start 09/10/19 at 18:30 Lorazepam (Ativan Inj) 2 mg PRN Q15MIN PRN IV SEE COMMENTS; Start 09/10/19 at 18:30; Stop 09/11/19 at 11:22; Status DC Lorazepam (Ativan Inj) 4 mg PRN Q15MIN PRN IV SEE COMMENTS; Start 09/10/19 at 18:30; Stop 09/11/19 at 11:22; Status DC Butorphanol Tartrate (Stadol) 1 mg PRN Q6HRS PRN IV MODERATE PAIN 4-6 Last administered on 09/12/19at 09:33; Start 09/11/19 at 00:30; Stop 09/12/19 at 12:06; Status DC Famotidine (Pepcid) 20 mg BID PO Last administered on 09/13/19 08:16; Start 09/11/19 at 12:00 Ferrous Sulfate (Feosol) 325 mg DAILYWBKFT PO Last administered on 09/13/19 08:16; Start 09/11/19 at 12:00 Folic Acid (Folic Acid) 1 mg DAILY PO ; Start 09/11/19 at 12:00; Status UNV Lorazepam (Ativan) 0.5 mg TID PO Last administered on 09/13/19 08:16; Start 09/11/19 at 14:00 Prazosin HCl (Minipress) 1 mg QHS PO Last administered on 09/12/19at 21:16; Start 09/11/19 at 21:00 Sertraline HCl (Zoloft) 50 mg DAILY PO Last administered on 09/13/19 08:16; Start 09/11/19 at 12:00 Non-Formulary Medication (Multivitamin (Multivitamins)) 1 tab DAILY PO ; Start 09/12/19 at 09:00; Status UNV Thiamine Mononitrate (Vitamin B-1) 100 mg DAILY PO ; Start 09/16/19 at 09:00 Ondansetron HCl (Zofran) 4 mg Q4HRS PRN IVP NAUSEA/VOMITING Last administered on 09/12/19at 17:05; Start 09/11/19 at 16:15; Stop 09/12/19 at 20:04; Status DC Labetalol HCl (Normodyne Iv Push) 10 mg PRN Q4HRS PRN IVP HYPERTENSION Last administered on 09/11/19at 23:44; Start 09/11/19 at 23:45 Hydromorphone HCl (Dilaudid) 1.5 mg PRN Q3HRS PRN IV PAIN Last administered on 09/13/19at 07:21; Start 09/12/19 at 12:15 Ondansetron HCl (Zofran) 4 mg PRN Q6HRS PRN IVP NAUSEA/VOMITING; Start 09/12/19 at 20:15 Ibuprofen (Motrin) 400 mg PRN Q6HRS PRN PO INFLAMMATION; Start 09/12/19 at 20:15 Active Scripts Active Ibuprofen 600 Mg Tablet 600 Mg PO PRN Q6HRS PRN 10 Days Lorazepam 0.5 Mg Tablet 1 Tab PO TID 7 Days Multivitamins (Multivitamin) 1 Each Tablet 1 Tab PO DAILY Folic Acid 1 Mg Tablet 1 Tab PO DAILY Vitamin B-1 (Thiamine Hcl) 100 Mg Tablet 100 Mg PO DAILY 30 Days Famotidine 20 Mg Tablet 20 Mg PO BID 30 Days Feosol (Ferrous Sulfate) 325 Mg Tablet 325 Mg PO [id number] 30 Days Reported Gabapentin 600 Mg Tablet 600 Mg PO TID Haloperidol 5 Mg Tablet 1 Tab PO BID Zyprexa (Olanzapine) 5 Mg Tablet 1 Tab PO QHS Prazosin Hcl 1 Mg Capsule 1 Cap PO QHS Trazodone Hcl 100 Mg Tablet 1 Tab PO QHS Hydroxyzine Hcl 25 Mg Tablet 3 Tab PO TID Zoloft (Sertraline Hcl) 50 Mg Tablet 1 Tab PO DAILY Vitals/I & O Vital Sign - Last 24 Hours 09/12/19 09/12/19 09/12/19 09/12/19 09:33 10:05 11:00 12:46 Temp 98.6 98.6 Pulse 114 Resp 16 17 16 18 B/P (MAP) 155/102 (119) Pulse Ox 94 O2 Delivery Room Air Room Air Room Air Room Air 09/12/19 09/12/19 09/12/19 09/12/19 13:20 15:00 15:56 16:30 Temp 97.9 97.9 Pulse 105 Resp 16 16 16 17 B/P (MAP) 130/87 (101) Pulse Ox 93 O2 Delivery Room Air Room Air Room Air Room Air 09/12/19 09/12/19 09/12/19 09/12/19 19:00 19:48 20:00 20:20 Temp 98.6 98.6 Pulse 105 Resp 18 16 B/P (MAP) 148/102 (117) Pulse Ox 94 97 97 O2 Delivery Room Air Room Air Room Air Room Air 09/12/19 09/12/19 09/12/19 09/12/19 21:16 23:00 23:14 23:48 Temp 98.7 98.7 Pulse 105 90 Resp 16 13 B/P (MAP) 148/102 136/90 (105) Pulse Ox 100 100 100 O2 Delivery Nasal Cannula Nasal Cannula Room Air O2 Flow Rate 2.0 2.0 2.0 09/13/19 09/13/19 09/13/19 09/13/19 03:00 03:53 04:23 07:21 Temp 98.6 98.6 Pulse 89 Resp 16 16 16 16 B/P (MAP) 139/94 (109) Pulse Ox 94 94 94 O2 Delivery Nasal Cannula Nasal Cannula Nasal Cannula Room Air O2 Flow Rate 2.0 2.0 2.0 09/13/19 09/13/19 07:54 08:00 Temp 98.3 98.3 Pulse 100 Resp 18 16 B/P (MAP) 143/88 (106) Pulse Ox 100 O2 Delivery Nasal Cannula Nasal Cannula O2 Flow Rate 2.0 1.0 Intake and Output 09/12/19 09/12/19 09/13/19 14:59 22:59 06:59 Intake Total 1350 ml Balance 1350 ml BENJIE CHANEL MD Sep 13, 2019 08:46
--- NOTE | 2019-09-13 09:15 | NUR ---
SW following pt for dc planning. Chart reviewed, discussed with RN, and PAT team. Pt is known to SWer from previous admission and was discharged to OSH. Per PAT team, pt was discharged from OSH after three days as [facility] did not complete petition order. Plan 1. Per RN, pt is not medically cleared today and awaiting on Sx input re possible gallstones. 2. PAT team will re-eval for inpt psych placement once pt is medically cleared. 3. SW will continue to follow pt.
--- NOTE | 2019-09-13 09:48 | PDOC ---
Subjective: Subjective: Asks about having an EGD. Not feeling great. Has had some water. "I was throwing up blood." Objective: Vital Signs: Vital Signs Date Time Temp Pulse Resp B/P (MAP) Pulse Ox O2 Delivery O2 Flow Rate FiO2 09/13/19 08:00 16 Nasal Cannula 1.0 09/13/19 07:54 98.3 100 143/88 (106) 100 98.3 Imaging: Abd US 09/11 Impression: 1. There is coarsening of the hepatic echotexture which may be seen with hepatocellular disease, nodular margin of the liver as may be seen with cirrhosis. There is hepatomegaly. No significant free fluid is demonstrated. There is to and fro flow in the portal vein. 2. There is gallstone lodged at the gallbladder neck, no gallbladder wall thickening. PE: GEN: NAD - sitting up in bed LUNGS: NC HEART: borderline tachycardic ABD: tender per usual - mostly RUQ but hard to tell NEURO/PSYCH: drowsy, mumbling A/P: Alcohol intoxication, aggressive behavior w/ h/o intentional drug overdose Cirrhosis - thrombocytopenia, coagulopathy, chronically elevated LFTs, hyperammonemia Cholelithiasis - on US as above Chronic pain -- No bleeding per 1:1 obs. Hgb and BUN WNL. PPI instead of H2 opal. Add lactulose. No plans for EGD at this time - done in 07/2019. Will review w/ Dr. Florez. JANET STEWART Sep 13, 2019 09:48
[2019-09-13] MEDS: LACTULOSE 20 GM/30 ML SOLUTION. PO SCH ×2 (10:26→21:00)
[2019-09-13] MEDS: PANTOPRAZOLE 40 MG TABLET.DR. PO SCH (10:27)
[2019-09-13 11:00] VITALS: BP 136/92
--- NOTE | 2019-09-13 11:01 | PDOC2 ---
CONSULT Date of Consult Date of Consult DATE: 09/13/19 TIME: 10:55 Reason for Consult Reason for Consult: Cholelithiasis Referring Physician Referring Physician: Samira Identification/Chief Complaint Chief Complaint No specific complaint Source Source: Chart review, Patient History of Present Illness Reason for Visit: 29-year-old male with schizophrenia difficult to elucidate any history. Known alcohol and drug abuse. Currently patient resting comfortably sitting up in bed somewhat sedated. When asked if he has any pain he says no but then describes how he has pain on his left abdomen right abdomen chest back also states that he hasn't been able to eat any food for months. Past Medical History Cardiovascular: HTN GI: GI bleed, Gastritis, Other (esophageal varices, colitis) Hepatobiliary: Cirrhosis, Other (alpha-1 antitrypsin) Psych: Addictions, Depression, Schizophrenia, Other (personality disorder) Past Surgical History Past Surgical History: No pertinent history Family History Family History: Other Social History ALCOHOL: heavy Lives: Alone Current Problem List Problem List Problems Medical Problems: (1) Aggressive behavior Status: Acute (2) Alcohol intoxication Status: Chronic (3) Suicidal ideation Status: Acute Current Medications Current Medications Current Medications Ziprasidone (Geodon Im) 20 mg 1X ONCE IM Last administered on 09/10/19at 14:21; Start 09/10/19 at 14:00; Stop 09/10/19 at 14:07; Status DC Ketamine HCl (Ketamine) 11 mg 1X ONCE IV Last administered on 09/10/19at 16:14; Start 09/10/19 at 14:30; Stop 09/10/19 at 14:31; Status DC Sodium Chloride 1,000 ml @ 1,000 mls/hr 1X ONCE IV Last administered on 09/10/19at 15:10; Start 09/10/19 at 15:15; Stop 09/10/19 at 16:14; Status DC Ondansetron HCl (Zofran) 4 mg PRN Q8HRS PRN IV NAUSEA/VOMITING Last administered on 09/11/19at 08:32; Start 09/10/19 at 15:45; Stop 09/11/19 at 15:44; Status DC Multivitamins 10 ml/Thiamine HCl 100 mg/Folic Acid 1 mg/Sodium Chloride 1,011.2 ml @ 100 mls/ hr DAILY IV Last administered on 09/13/19at 08:17; Start 09/11/19 at 09:00; Stop 09/15/19 at 19:07 Multivitamins (Thera M Plus) 1 tab DAILY PO ; Start 09/16/19 at 09:00 Folic Acid (Folic Acid) 1 mg DAILY PO ; Start 09/16/19 at 09:00 Thiamine HCl 100 mg DAILY IM ; Start 09/16/19 at 09:00; Stop 09/16/19 at 09:01; Status Cancel Thiamine HCl 100 mg/Dextrose 51 ml @ 100 mls/hr DAILY IV ; Start 09/11/19 at 09:00; Stop 09/15/19 at 09:31; Status UNV Chlordiazepoxide (Librium) 50 mg PRN Q1HR PRN PO For CIWA 8-14 2ND CHOICE Last administered on 09/11/19at 19:52; Start 09/10/19 at 18:30 Lorazepam (Ativan) 4 mg PRN Q1HR PRN PO For CIWA 8-14; Start 09/10/19 at 18:30 Lorazepam (Ativan) 8 mg PRN Q1HR PRN PO For CIWA 15 or greater; Start 09/10/19 at 18:30 Lorazepam (Ativan Inj) 2 mg PRN Q1HR PRN IV For CIWA 8-14 Last administered on 09/13/19at 08:16; Start 09/10/19 at 18:30 Lorazepam (Ativan Inj) 4 mg PRN Q1HR PRN IV For CIWA 15 or greater Last administered on 09/12/19at 03:05; Start 09/10/19 at 18:30 Haloperidol Lactate (Haldol Inj) 5 mg PRN Q4HRS PRN IVP Hallucinatns,Confusn,Delirium; Start 09/10/19 at 18:30 Diphenhydramine HCl (Benadryl) 25 mg PRN Q15MIN PRN IVP EPS symptoms 2'Haldol admin Last administered on 09/11/19at 23:40; Start 09/10/19 at 18:30 Clonidine HCl (Catapres) 0.1 mg PRN Q1HR PRN PO SBP > 180 or DBP > 100, MRX3; Start 09/10/19 at 18:30 Lorazepam (Ativan Inj) 2 mg PRN Q15MIN PRN IV SEE COMMENTS; Start 09/10/19 at 18:30; Stop 09/11/19 at 11:22; Status DC Lorazepam (Ativan Inj) 4 mg PRN Q15MIN PRN IV SEE COMMENTS; Start 09/10/19 at 18:30; Stop 09/11/19 at 11:22; Status DC Butorphanol Tartrate (Stadol) 1 mg PRN Q6HRS PRN IV MODERATE PAIN 4-6 Last administered on 09/12/19at 09:33; Start 09/11/19 at 00:30; Stop 09/12/19 at 12:06; Status DC Famotidine (Pepcid) 20 mg BID PO Last administered on 09/13/19 08:16; Start 09/11/19 at 12:00; Stop 09/13/19 at 09:47; Status DC Ferrous Sulfate (Feosol) 325 mg DAILYWBKFT PO Last administered on 09/13/19at 08:16; Start 09/11/19 at 12:00 Folic Acid (Folic Acid) 1 mg DAILY PO ; Start 09/11/19 at 12:00; Status UNV Lorazepam (Ativan) 0.5 mg TID PO Last administered on 09/13/19at 08:16; Start 09/11/19 at 14:00 Prazosin HCl (Minipress) 1 mg QHS PO Last administered on 09/12/19at 21:16; Start 09/11/19 at 21:00 Sertraline HCl (Zoloft) 50 mg DAILY PO Last administered on 09/13/19at 08:16; Start 09/11/19 at 12:00 Non-Formulary Medication (Multivitamin (Multivitamins)) 1 tab DAILY PO ; Start 09/12/19 at 09:00; Status UNV Thiamine Mononitrate (Vitamin B-1) 100 mg DAILY PO ; Start 09/16/19 at 09:00 Ondansetron HCl (Zofran) 4 mg Q4HRS PRN IVP NAUSEA/VOMITING Last administered on 09/12/19at 17:05; Start 09/11/19 at 16:15; Stop 09/12/19 at 20:04; Status DC Labetalol HCl (Normodyne Iv Push) 10 mg PRN Q4HRS PRN IVP HYPERTENSION Last administered on 09/11/19at 23:44; Start 09/11/19 at 23:45 Hydromorphone HCl (Dilaudid) 1.5 mg PRN Q3HRS PRN IV PAIN Last administered on 09/13/19at 10:28; Start 09/12/19 at 12:15 Ondansetron HCl (Zofran) 4 mg PRN Q6HRS PRN IVP NAUSEA/VOMITING; Start 09/12/19 at 20:15 Ibuprofen (Motrin) 400 mg PRN Q6HRS PRN PO INFLAMMATION; Start 09/12/19 at 20:15 Pantoprazole Sodium (Protonix) 40 mg DAILYAC PO Last administered on 09/13/19at 10:27; Start 09/13/19 at 10:00 Lactulose (Lactulose) 20 gm BID PO Last administered on 09/13/19at 10:26; Start 09/13/19 at 10:00 Active Scripts Active Ibuprofen 600 Mg Tablet 600 Mg PO PRN Q6HRS PRN 10 Days Lorazepam 0.5 Mg Tablet 1 Tab PO TID 7 Days Multivitamins (Multivitamin) 1 Each Tablet 1 Tab PO DAILY Folic Acid 1 Mg Tablet 1 Tab PO DAILY Vitamin B-1 (Thiamine Hcl) 100 Mg Tablet 100 Mg PO DAILY 30 Days Famotidine 20 Mg Tablet 20 Mg PO BID 30 Days Feosol (Ferrous Sulfate) 325 Mg Tablet 325 Mg PO DAILYWBKFT 30 Days Reported Gabapentin 600 Mg Tablet 600 Mg PO TID Haloperidol 5 Mg Tablet 1 Tab PO BID Zyprexa (Olanzapine) 5 Mg Tablet 1 Tab PO QHS Prazosin Hcl 1 Mg Capsule 1 Cap PO QHS Trazodone Hcl 100 Mg Tablet 1 Tab PO QHS Hydroxyzine Hcl 25 Mg Tablet 3 Tab PO TID Zoloft (Sertraline Hcl) 50 Mg Tablet 1 Tab PO DAILY Allergies Allergies: Coded Allergies: No Known Drug Allergies (Unverified , 06/25/17) ROS Cardiovascular: yes Chest Pain Gastrointestinal: Yes Nausea, Yes Vomiting, Yes Abdominal Pain Physical Exam General: Cooperative, No acute distress HEENT: Atraumatic Lungs: Clear to auscultation, Normal air movement Heart: No murmurs Abdomen: Normal bowel sounds, Soft, No tenderness, Other (jaundice) Extremities: No edema Skin: No significant lesion Vitals VITALS Vital Signs Date Time Temp Pulse Resp B/P (MAP) Pulse Ox O2 Delivery O2 Flow Rate FiO2 09/13/19 10:28 17 Nasal Cannula 1.0 09/13/19 07:54 98.3 100 143/88 (106) 100 98.3 Labs Labs Laboratory Tests Test 09/11/19 12:50 09/11/19 18:10 09/12/19 03:45 Prothrombin Time 17.4 SEC (11.7-14.0) Prothromb Time International Ratio 1.5 (0.8-1.1) Ammonia 53 mcmol/L (11-34) Thyroid Stimulating Hormone (TSH) 4.036 uIU/mL (0.358-3.74) Urine Opiates Screen Neg (NEG) Urine Methadone Screen Neg (NEG) Urine Barbiturates Neg (NEG) Urine Phencyclidine Screen Neg (NEG) Urine Amphetamine/Methamphetamine Neg (NEG) Urine Benzodiazepines Screen Pos (NEG) Urine Cocaine Screen Neg (NEG) Urine Cannabinoids Screen Neg (NEG) Urine Ethyl Alcohol Neg (NEG) White Blood Count 4.7 x10^3/uL (4.0-11.0) Red Blood Count 4.04 x10^6/uL (4.30-5.70) Hemoglobin 13.5 g/dL (13.0-17.5) Hematocrit 40.2 % (39.0-53.0) Mean Corpuscular Volume 100 fL (79-100) Mean Corpuscular Hemoglobin 34 pg (25-35) Mean Corpuscular Hemoglobin Concent 34 g/dL (31-37) Red Cell Distribution Width 15.3 % (11.5-14.5) Platelet Count 90 x10^3/uL (140-400) Neutrophils (%) (Auto) 65 % (31-73) Lymphocytes (%) (Auto) 20 % (24-48) Monocytes (%) (Auto) 12 % (0-9) Eosinophils (%) (Auto) 2 % (0-3) Basophils (%) (Auto) 1 % (0-3) Neutrophils # (Auto) 3.1 x10^3/uL (1.8-7.7) Lymphocytes # (Auto) 1.0 x10^3/uL (1.0-4.8) Monocytes # (Auto) 0.6 x10^3/uL (0.0-1.1) Eosinophils # (Auto) 0.1 x10^3/uL (0.0-0.7) Basophils # (Auto) 0.0 x10^3/uL (0.0-0.2) Sodium Level 139 mmol/L (136-145) Potassium Level 3.7 mmol/L (3.5-5.1) Chloride Level 101 mmol/L (98-107) Carbon Dioxide Level 28 mmol/L (21-32) Anion Gap 10 (6-14) Blood Urea Nitrogen 7 mg/dL (8-26) Creatinine 0.7 mg/dL (0.7-1.3) Estimated GFR (Cockcroft-Gault) 133.3 BUN/Creatinine Ratio 10 (6-20) Glucose Level 101 mg/dL (70-99) Calcium Level 9.2 mg/dL (8.5-10.1) Total Bilirubin 2.7 mg/dL (0.2-1.0) Aspartate Amino Transf (AST/SGOT) 271 U/L (15-37) Alanine Aminotransferase (ALT/SGPT) 234 U/L (16-63) Alkaline Phosphatase 291 U/L (46-116) Total Protein 7.6 g/dL (6.4-8.2) Albumin 3.2 g/dL (3.4-5.0) Albumin/Globulin Ratio 0.7 (1.0-1.7) Images Images Ultrasound of the right upper quadrant shows a single gallstone in the neck of the gallbladder no pericholecystic fluid no thickening of the gallbladder wall no Marin sign no evidence of cholecystitis Assessment/Plan Assessment/Plan A 29-year-old male with asymptomatic cholelithiasis with primary liver disease secondary to alcohol abuse. In light of his current condition not recommend cholecystectomy until he has become sober at which point cholecystectomy can be done as an elective outpatient procedure. KORY PHOENIX MD Sep 13, 2019 11:01
[2019-09-13] MEDS: ONDANSETRON PF 4 MG/2 ML VIAL. IVP PRN ×2 (11:59→22:34)
--- NOTE | 2019-09-13 13:05 | PDOC ---
PROGRESS NOTES Assessment Problems Medical Problems: (1) Aggressive behavior Status: Acute (2) Alcohol intoxication Status: Chronic (3) Suicidal ideation Status: Acute Acute alcohol intoxication, schizophrenia, liver disease, but no primary neurological issue. Plan Psychiatric assessment team No need for additional neurological studies or treatment Neurology will follow along at intervals. Subjective Denies headache Objective Vital Signs Date Time Temp Pulse Resp B/P (MAP) Pulse Ox O2 Delivery O2 Flow Rate FiO2 09/13/19 11:00 98.5 103 12 136/92 (107) 94 Nasal Cannula 2.0 98.5 Intake and Output 09/13/19 07:00 Intake Total 1350 ml Balance 1350 ml Intake Oral 1350 ml # Voids 9 # Bowel Movements 1 PHYSICAL EXAM Alert. Oriented to time, place and person. PERRL. EOMI. CN: no focal findings. Muscle tone: normal. Muscle strength: 4/5 DTR: 1+ Plantar reflex: flexor Gait: not examined in bed. Sensory exam: no abnormal findings. No cerebellar signs elicited. Review of Relevant I have reviewed the following items mc (where applicable) has been applied. Labs Laboratory Tests Test 09/11/19 18:10 09/12/19 03:45 Urine Opiates Screen Neg (NEG) Urine Methadone Screen Neg (NEG) Urine Barbiturates Neg (NEG) Urine Phencyclidine Screen Neg (NEG) Urine Amphetamine/Methamphetamine Neg (NEG) Urine Benzodiazepines Screen Pos (NEG) Urine Cocaine Screen Neg (NEG) Urine Cannabinoids Screen Neg (NEG) Urine Ethyl Alcohol Neg (NEG) White Blood Count 4.7 x10^3/uL (4.0-11.0) Red Blood Count 4.04 x10^6/uL (4.30-5.70) Hemoglobin 13.5 g/dL (13.0-17.5) Hematocrit 40.2 % (39.0-53.0) Mean Corpuscular Volume 100 fL (79-100) Mean Corpuscular Hemoglobin 34 pg (25-35) Mean Corpuscular Hemoglobin Concent 34 g/dL (31-37) Red Cell Distribution Width 15.3 % (11.5-14.5) Platelet Count 90 x10^3/uL (140-400) Neutrophils (%) (Auto) 65 % (31-73) Lymphocytes (%) (Auto) 20 % (24-48) Monocytes (%) (Auto) 12 % (0-9) Eosinophils (%) (Auto) 2 % (0-3) Basophils (%) (Auto) 1 % (0-3) Neutrophils # (Auto) 3.1 x10^3/uL (1.8-7.7) Lymphocytes # (Auto) 1.0 x10^3/uL (1.0-4.8) Monocytes # (Auto) 0.6 x10^3/uL (0.0-1.1) Eosinophils # (Auto) 0.1 x10^3/uL (0.0-0.7) Basophils # (Auto) 0.0 x10^3/uL (0.0-0.2) Sodium Level 139 mmol/L (136-145) Potassium Level 3.7 mmol/L (3.5-5.1) Chloride Level 101 mmol/L (98-107) Carbon Dioxide Level 28 mmol/L (21-32) Anion Gap 10 (6-14) Blood Urea Nitrogen 7 mg/dL (8-26) Creatinine 0.7 mg/dL (0.7-1.3) Estimated GFR (Cockcroft-Gault) 133.3 BUN/Creatinine Ratio 10 (6-20) Glucose Level 101 mg/dL (70-99) Calcium Level 9.2 mg/dL (8.5-10.1) Total Bilirubin 2.7 mg/dL (0.2-1.0) Aspartate Amino Transf (AST/SGOT) 271 U/L (15-37) Alanine Aminotransferase (ALT/SGPT) 234 U/L (16-63) Alkaline Phosphatase 291 U/L (46-116) Total Protein 7.6 g/dL (6.4-8.2) Albumin 3.2 g/dL (3.4-5.0) Albumin/Globulin Ratio 0.7 (1.0-1.7) Medications Current Medications Ziprasidone (Geodon Im) 20 mg 1X ONCE IM Last administered on 09/10/19at 14:21; Start 09/10/19 at 14:00; Stop 09/10/19 at 14:07; Status DC Ketamine HCl (Ketamine) 11 mg 1X ONCE IV Last administered on 09/10/19at 16:14; Start 09/10/19 at 14:30; Stop 09/10/19 at 14:31; Status DC Sodium Chloride 1,000 ml @ 1,000 mls/hr 1X ONCE IV Last administered on 09/10/19at 15:10; Start 09/10/19 at 15:15; Stop 09/10/19 at 16:14; Status DC Ondansetron HCl (Zofran) 4 mg PRN Q8HRS PRN IV NAUSEA/VOMITING Last administered on 09/11/19at 08:32; Start 09/10/19 at 15:45; Stop 09/11/19 at 15:44; Status DC Multivitamins 10 ml/Thiamine HCl 100 mg/Folic Acid 1 mg/Sodium Chloride 1,011.2 ml @ 100 mls/ hr DAILY IV Last administered on 09/13/19at 08:17; Start 09/11/19 at 09:00; Stop 09/15/19 at 19:07 Multivitamins (Thera M Plus) 1 tab DAILY PO ; Start 09/16/19 at 09:00 Folic Acid (Folic Acid) 1 mg DAILY PO ; Start 09/16/19 at 09:00 Thiamine HCl 100 mg DAILY IM ; Start 09/16/19 at 09:00; Stop 09/16/19 at 09:01; Status Cancel Thiamine HCl 100 mg/Dextrose 51 ml @ 100 mls/hr DAILY IV ; Start 09/11/19 at 09:00; Stop 09/15/19 at 09:31; Status UNV Chlordiazepoxide (Librium) 50 mg PRN Q1HR PRN PO For CIWA 8-14 2ND CHOICE Last administered on 09/11/19at 19:52; Start 09/10/19 at 18:30; Stop 09/13/19 at 12:34; Status DC Lorazepam (Ativan) 4 mg PRN Q1HR PRN PO For CIWA 8-14; Start 09/10/19 at 18:30 Lorazepam (Ativan) 8 mg PRN Q1HR PRN PO For CIWA 15 or greater; Start 09/10/19 at 18:30 Lorazepam (Ativan Inj) 2 mg PRN Q1HR PRN IV For CIWA 8-14 Last administered on 09/13/19at 11:59; Start 09/10/19 at 18:30 Lorazepam (Ativan Inj) 4 mg PRN Q1HR PRN IV For CIWA 15 or greater Last administered on 09/12/19at 03:05; Start 09/10/19 at 18:30 Haloperidol Lactate (Haldol Inj) 5 mg PRN Q4HRS PRN IVP Hallucinatns,Confusn,Delirium; Start 09/10/19 at 18:30 Diphenhydramine HCl (Benadryl) 25 mg PRN Q15MIN PRN IVP EPS symptoms 2'Haldol admin Last administered on 09/11/19at 23:40; Start 09/10/19 at 18:30 Clonidine HCl (Catapres) 0.1 mg PRN Q1HR PRN PO SBP > 180 or DBP > 100, MRX3; Start 09/10/19 at 18:30 Lorazepam (Ativan Inj) 2 mg PRN Q15MIN PRN IV SEE COMMENTS; Start 09/10/19 at 18:30; Stop 09/11/19 at 11:22; Status DC Lorazepam (Ativan Inj) 4 mg PRN Q15MIN PRN IV SEE COMMENTS; Start 09/10/19 at 18:30; Stop 09/11/19 at 11:22; Status DC Butorphanol Tartrate (Stadol) 1 mg PRN Q6HRS PRN IV MODERATE PAIN 4-6 Last administered on 09/12/19at 09:33; Start 09/11/19 at 00:30; Stop 09/12/19 at 12:06; Status DC Famotidine (Pepcid) 20 mg BID PO Last administered on 09/13/19at 08:16; Start 09/11/19 at 12:00; Stop 09/13/19 at 09:47; Status DC Ferrous Sulfate (Feosol) 325 mg DAILYWBKFT PO Last administered on 09/13/19at 08:16; Start 09/11/19 at 12:00 Folic Acid (Folic Acid) 1 mg DAILY PO ; Start 09/11/19 at 12:00; Status UNV Lorazepam (Ativan) 0.5 mg TID PO Last administered on 09/13/19at 08:16; Start 09/11/19 at 14:00 Prazosin HCl (Minipress) 1 mg QHS PO Last administered on 09/12/19at 21:16; Start 09/11/19 at 21:00 Sertraline HCl (Zoloft) 50 mg DAILY PO Last administered on 09/13/19at 08:16; Start 09/11/19 at 12:00 Non-Formulary Medication (Multivitamin (Multivitamins)) 1 tab DAILY PO ; Start 09/12/19 at 09:00; Status UNV Thiamine Mononitrate (Vitamin B-1) 100 mg DAILY PO ; Start 09/16/19 at 09:00 Ondansetron HCl (Zofran) 4 mg Q4HRS PRN IVP NAUSEA/VOMITING Last administered on 09/12/19at 17:05; Start 09/11/19 at 16:15; Stop 09/12/19 at 20:04; Status DC Labetalol HCl (Normodyne Iv Push) 10 mg PRN Q4HRS PRN IVP HYPERTENSION Last administered on 09/11/19at 23:44; Start 09/11/19 at 23:45 Hydromorphone HCl (Dilaudid) 1.5 mg PRN Q3HRS PRN IV PAIN Last administered on 09/13/19at 10:28; Start 09/12/19 at 12:15; Stop 09/13/19 at 12:34; Status DC Ondansetron HCl (Zofran) 4 mg PRN Q6HRS PRN IVP NAUSEA/VOMITING Last administered on 09/13/19at 11:59; Start 09/12/19 at 20:15 Ibuprofen (Motrin) 400 mg PRN Q6HRS PRN PO INFLAMMATION; Start 09/12/19 at 20:15; Stop 09/13/19 at 12:46; Status DC Pantoprazole Sodium (Protonix) 40 mg DAILYAC PO Last administered on 09/13/19at 10:27; Start 09/13/19 at 10:00 Lactulose (Lactulose) 20 gm BID PO Last administered on 09/13/19at 10:26; Start 09/13/19 at 10:00 Hydromorphone HCl (Dilaudid) 0.5 mg PRN Q8HRS PRN IV PAIN; Start 09/13/19 at 12:30 Acetaminophen/ Hydrocodone Bitart (Lortab 5/325) 1 tab PRN Q6HRS PRN PO PAIN; Start 09/13/19 at 12:30 Active Scripts Active Ibuprofen 600 Mg Tablet 600 Mg PO PRN Q6HRS PRN 10 Days Lorazepam 0.5 Mg Tablet 1 Tab PO TID 7 Days Multivitamins (Multivitamin) 1 Each Tablet 1 Tab PO DAILY Folic Acid 1 Mg Tablet 1 Tab PO DAILY Vitamin B-1 (Thiamine Hcl) 100 Mg Tablet 100 Mg PO DAILY 30 Days Famotidine 20 Mg Tablet 20 Mg PO BID 30 Days Feosol (Ferrous Sulfate) 325 Mg Tablet 325 Mg PO DAILYWBKFT 30 Days Reported Gabapentin 600 Mg Tablet 600 Mg PO TID Haloperidol 5 Mg Tablet 1 Tab PO BID Zyprexa (Olanzapine) 5 Mg Tablet 1 Tab PO QHS Prazosin Hcl 1 Mg Capsule 1 Cap PO QHS Trazodone Hcl 100 Mg Tablet 1 Tab PO QHS Hydroxyzine Hcl 25 Mg Tablet 3 Tab PO TID Zoloft (Sertraline Hcl) 50 Mg Tablet 1 Tab PO DAILY Vitals/I & O Vital Sign - Last 24 Hours 09/12/19 09/12/19 09/12/19 09/12/19 13:20 15:00 15:56 16:30 Temp 97.9 97.9 Pulse 105 Resp 16 16 16 17 B/P (MAP) 130/87 (101) Pulse Ox 93 O2 Delivery Room Air Room Air Room Air Room Air 09/12/19 09/12/19 09/12/19 09/12/19 19:00 19:48 20:00 20:20 Temp 98.6 98.6 Pulse 105 Resp 18 16 B/P (MAP) 148/102 (117) Pulse Ox 94 97 97 O2 Delivery Room Air Room Air Room Air Room Air 09/12/19 09/12/19 09/12/19 09/12/19 21:16 23:00 23:14 23:48 Temp 98.7 98.7 Pulse 105 90 Resp 16 13 B/P (MAP) 148/102 136/90 (105) Pulse Ox 100 100 100 O2 Delivery Nasal Cannula Nasal Cannula Room Air O2 Flow Rate 2.0 2.0 2.0 09/13/19 09/13/19 09/13/19 09/13/19 03:00 03:53 04:23 07:21 Temp 98.6 98.6 Pulse 89 Resp 16 16 16 16 B/P (MAP) 139/94 (109) Pulse Ox 94 94 94 O2 Delivery Nasal Cannula Nasal Cannula Nasal Cannula Room Air O2 Flow Rate 2.0 2.0 2.0 09/13/19 09/13/19 09/13/19 09/13/19 07:54 07:55 08:00 10:28 Temp 98.3 98.3 Pulse 100 Resp 18 16 17 B/P (MAP) 143/88 (106) Pulse Ox 100 O2 Delivery Nasal Cannula Nasal Cannula Nasal Cannula Nasal Cannula O2 Flow Rate 2.0 1.0 1.0 1.0 09/13/19 09/13/19 11:00 11:00 Temp 98.5 98.5 Pulse 103 Resp 17 12 B/P (MAP) 136/92 (107) Pulse Ox 94 O2 Delivery Room Air Nasal Cannula O2 Flow Rate 2.0 Intake and Output 09/12/19 09/12/19 09/13/19 15:00 23:00 07:00 Intake Total 1350 ml Balance 1350 ml ROBIN TY MD Sep 13, 2019 13:05
--- NOTE | 2019-09-13 13:51 | RAD ---
CHEST AP ONLY Clinical Indication: Shortness of breath, hypoxia Comparison: 08/27/2019 AP view of the chest. Findings: Portable upright frontal view of the chest was obtained. The cardiomediastinal silhouette is normal. Lungs are clear. There is no pneumothorax. No pleural effusion is appreciated. No acute bone abnormality. IMPRESSION: No acute cardiopulmonary process. Electronically signed by: Aleks Garg MD (09/13/2019 1:48 PM) [facility]
[2019-09-13 15:00] VITALS: BP 128/87
[2019-09-13] MEDS: HYDROcodone/APAP 5/325MG 1 TAB TABLET PO PRN ×2 (16:30→22:34)
[2019-09-13 19:06] VITALS: BP 154/100
[2019-09-13] MEDS: PRAZOSIN 1 MG CAPSULE. PO SCH (21:00)
[2019-09-13 23:01] VITALS: BP 145/98
[2019-09-14 03:39] VITALS: BP 143/89
[2019-09-14 07:04] VITALS: BP 145/99
[2019-09-14] MEDS: HYDROcodone/APAP 5/325MG 1 TAB TABLET PO PRN ×2 (07:50→13:02)
[2019-09-14] MEDS: FERROUS SULFATE 325 MG TABLET. PO SCH (07:51)
[2019-09-14] MEDS: PANTOPRAZOLE 40 MG TABLET.DR. PO SCH (07:51)
[2019-09-14] MEDS ORDERED: CHLO1CAP PO (08:37)
[2019-09-14] MEDS ORDERED: LACT20SO PO (08:37)
[2019-09-14] MEDS ORDERED: PANT40TA77 PO (08:37)
[2019-09-14] MEDS: SERTRALINE 50 MG TABLET. PO SCH (08:45)
[2019-09-14] MEDS: LACTULOSE 20 GM/30 ML SOLUTION. PO SCH (08:45)
[2019-09-14] MEDS: LORazepam 0.5 MG TABLET PO SCH ×2 (08:45→13:02)
[2019-09-14] MEDS: HYDROmorphone 2 MG/ML VIAL IV PRN ×2 (08:59→15:12)
[2019-09-14] MEDS ORDERED: FOLIC ACID 1 MG TABLET. PO SCH (09:00)
[2019-09-14] MEDS ORDERED: MULTIVITAMIN with MINERAL TABLET. PO SCH (09:00)
[2019-09-14] MEDS ORDERED: THIAMINE 100 MG TABLET. PO SCH (09:00)
[2019-09-14] MEDS: ONDANSETRON PF 4 MG/2 ML VIAL. IVP PRN (09:31)
--- NOTE | 2019-09-14 09:57 | PDOC ---
Subjective: Subjective: Has a lot of pain right now - upper and lower abdomen, lower back. Stooled twice yesterday. Eating some pancakes. Objective: Vital Signs: Vital Signs Date Time Temp Pulse Resp B/P (MAP) Pulse Ox O2 Delivery O2 Flow Rate FiO2 09/14/19 09:31 14 93 Room Air 09/14/19 07:04 97.9 109 145/99 (114) 97.9 09/14/19 03:39 2.0 Labs: Laboratory Tests Test 09/14/19 08:45 Ethyl Alcohol Level < 10 mg/dL PE: GEN: NAD - sitting up in bed eating breakfast LUNGS: CTAB HEART: RRR ABD: BS+, winces with placement of stethoscope - nonspecifically tender NEURO/PSYCH: A & O �3 A/P: Alcohol abuse, psych issues Cirrhosis Cholelithiasis - consider elective cholecystectomy per surgery Chronic pain -- Continue same per GI. JANET STEWART Sep 14, 2019 09:57
[2019-09-14 11:15] VITALS: BP 125/92
--- NOTE | 2019-09-14 11:36 | PDOC ---
PROGRESS NOTES Assessment Problems Medical Problems: (1) Aggressive behavior Status: Acute (2) Alcohol intoxication Status: Chronic (3) Suicidal ideation Status: Acute Acute alcohol intoxication, schizophrenia, liver disease, but no primary neurological issue. Plan Note in-progress workup for cholelithiasis Psychiatric assessment team No need for additional neurological studies or treatment Neurology will follow along at intervals. Subjective no neuro complaints Objective Vital Signs Date Time Temp Pulse Resp B/P (MAP) Pulse Ox O2 Delivery O2 Flow Rate FiO2 09/14/19 11:15 98.0 124 16 125/92 (103) 95 Room Air 98.0 09/14/19 03:39 2.0 Intake and Output 09/14/19 06:59 Intake Total 3155 ml Balance 3155 ml Intake Oral 2260 ml IV Total 895 ml # Voids 10 # Bowel Movements 1 PHYSICAL EXAM Alert. Oriented to time, place and person. PERRL. EOMI. CN: no focal findings. Muscle tone: normal. Muscle strength: 4/5 DTR: 1+ Plantar reflex: flexor Gait: not examined in bed. Sensory exam: no abnormal findings. No cerebellar signs elicited. Review of Relevant I have reviewed the following items mc (where applicable) has been applied. Labs Laboratory Tests Test 09/14/19 08:45 Ethyl Alcohol Level < 10 mg/dL (0-10) Laboratory Tests Test 09/14/19 08:45 Ethyl Alcohol Level < 10 mg/dL (0-10) Medications Current Medications Ziprasidone (Geodon Im) 20 mg 1X ONCE IM Last administered on 09/10/19at 14:21; Start 09/10/19 at 14:00; Stop 09/10/19 at 14:07; Status DC Ketamine HCl (Ketamine) 11 mg 1X ONCE IV Last administered on 09/10/19at 16:14; Start 09/10/19 at 14:30; Stop 09/10/19 at 14:31; Status DC Sodium Chloride 1,000 ml @ 1,000 mls/hr 1X ONCE IV Last administered on 09/10/19at 15:10; Start 09/10/19 at 15:15; Stop 09/10/19 at 16:14; Status DC Ondansetron HCl (Zofran) 4 mg PRN Q8HRS PRN IV NAUSEA/VOMITING Last administered on 09/11/19at 08:32; Start 09/10/19 at 15:45; Stop 09/11/19 at 15:44; Status DC Multivitamins 10 ml/Thiamine HCl 100 mg/Folic Acid 1 mg/Sodium Chloride 1,011.2 ml @ 100 mls/ hr DAILY IV Last administered on 09/13/19at 08:17; Start 09/11/19 at 09:00; Stop 09/14/19 at 08:59; Status DC Multivitamins (Thera M Plus) 1 tab DAILY PO Last administered on 09/14/19at 08:45; Start 09/14/19 at 09:00 Folic Acid (Folic Acid) 1 mg DAILY PO Last administered on 09/14/19at 08:45; Start 09/14/19 at 09:00 Thiamine HCl 100 mg DAILY IM ; Start 09/16/19 at 09:00; Stop 09/16/19 at 09:01; Status Cancel Thiamine HCl 100 mg/Dextrose 51 ml @ 100 mls/hr DAILY IV ; Start 09/11/19 at 09:00; Stop 09/15/19 at 09:31; Status UNV Chlordiazepoxide (Librium) 50 mg PRN Q1HR PRN PO For CIWA 8-14 2ND CHOICE Last administered on 09/11/19at 19:52; Start 09/10/19 at 18:30; Stop 09/13/19 at 12:34; Status DC Lorazepam (Ativan) 4 mg PRN Q1HR PRN PO For CIWA 8-14; Start 09/10/19 at 18:30 Lorazepam (Ativan) 8 mg PRN Q1HR PRN PO For CIWA 15 or greater; Start 09/10/19 at 18:30 Lorazepam (Ativan Inj) 2 mg PRN Q1HR PRN IV For CIWA 8-14 Last administered on 09/13/19at 22:44; Start 09/10/19 at 18:30 Lorazepam (Ativan Inj) 4 mg PRN Q1HR PRN IV For CIWA 15 or greater Last administered on 09/12/19at 03:05; Start 09/10/19 at 18:30 Haloperidol Lactate (Haldol Inj) 5 mg PRN Q4HRS PRN IVP Hallucinatns,Confusn,Delirium; Start 09/10/19 at 18:30 Diphenhydramine HCl (Benadryl) 25 mg PRN Q15MIN PRN IVP EPS symptoms 2'Haldol admin Last administered on 09/11/19at 23:40; Start 09/10/19 at 18:30 Clonidine HCl (Catapres) 0.1 mg PRN Q1HR PRN PO SBP > 180 or DBP > 100, MRX3; Start 09/10/19 at 18:30 Lorazepam (Ativan Inj) 2 mg PRN Q15MIN PRN IV SEE COMMENTS; Start 09/10/19 at 18:30; Stop 09/11/19 at 11:22; Status DC Lorazepam (Ativan Inj) 4 mg PRN Q15MIN PRN IV SEE COMMENTS; Start 09/10/19 at 18:30; Stop 09/11/19 at 11:22; Status DC Butorphanol Tartrate (Stadol) 1 mg PRN Q6HRS PRN IV MODERATE PAIN 4-6 Last administered on 09/12/19at 09:33; Start 09/11/19 at 00:30; Stop 09/12/19 at 12:06; Status DC Famotidine (Pepcid) 20 mg BID PO Last administered on 09/13/19at 08:16; Start 09/11/19 at 12:00; Stop 09/13/19 at 09:47; Status DC Ferrous Sulfate (Feosol) 325 mg DAILYWBKFT PO Last administered on 09/14/19at 07:51; Start 09/11/19 at 12:00 Folic Acid (Folic Acid) 1 mg DAILY PO ; Start 09/11/19 at 12:00; Status UNV Lorazepam (Ativan) 0.5 mg TID PO Last administered on 09/14/19at 08:45; Start 09/11/19 at 14:00 Prazosin HCl (Minipress) 1 mg QHS PO Last administered on 09/13/19at 21:00; Start 09/11/19 at 21:00 Sertraline HCl (Zoloft) 50 mg DAILY PO Last administered on 09/14/19at 08:45; Start 09/11/19 at 12:00 Non-Formulary Medication (Multivitamin (Multivitamins)) 1 tab DAILY PO ; Start 09/12/19 at 09:00; Status UNV Thiamine Mononitrate (Vitamin B-1) 100 mg DAILY PO Last administered on 09/14/19 08:45; Start 09/14/19 at 09:00 Ondansetron HCl (Zofran) 4 mg Q4HRS PRN IVP NAUSEA/VOMITING Last administered on 09/12/19 17:05; Start 09/11/19 at 16:15; Stop 09/12/19 at 20:04; Status DC Labetalol HCl (Normodyne Iv Push) 10 mg PRN Q4HRS PRN IVP HYPERTENSION Last administered on 09/11/19 23:44; Start 09/11/19 at 23:45 Hydromorphone HCl (Dilaudid) 1.5 mg PRN Q3HRS PRN IV PAIN Last administered on 09/13/19 10:28; Start 09/12/19 at 12:15; Stop 09/13/19 at 12:34; Status DC Ondansetron HCl (Zofran) 4 mg PRN Q6HRS PRN IVP NAUSEA/VOMITING Last administered on 09/14/19 09:31; Start 09/12/19 at 20:15 Ibuprofen (Motrin) 400 mg PRN Q6HRS PRN PO INFLAMMATION; Start 09/12/19 at 20:15; Stop 09/13/19 at 12:46; Status DC Pantoprazole Sodium (Protonix) 40 mg DAILYAC PO Last administered on 09/14/19 07:51; Start 09/13/19 at 10:00 Lactulose (Lactulose) 20 gm BID PO Last administered on 09/14/19 08:45; Start 09/13/19 at 10:00; Stop 09/14/19 at 09:56; Status DC Hydromorphone HCl (Dilaudid) 0.5 mg PRN Q8HRS PRN IV PAIN Last administered on 09/14/19 08:59; Start 09/13/19 at 12:30 Acetaminophen/ Hydrocodone Bitart (Lortab 5/325) 1 tab PRN Q6HRS PRN PO PAIN Last administered on 09/14/19 07:50; Start 09/13/19 at 12:30 Lactulose (Lactulose) 20 gm DAILY PO ; Start 09/15/19 at 09:00 Active Scripts Active Librax Capsule (Chlordiazepoxide/Clidinium Br) 1 Each Capsule 1 Cap PO TID Pantoprazole Sodium (Pantoprazole Sodium) 40 Mg Tablet.dr 40 Mg PO DAILYAC Lactulose 20 Gm/30 Ml Solution 20 Gm PO BID 5 Days Ibuprofen 600 Mg Tablet 600 Mg PO PRN Q6HRS PRN 10 Days Lorazepam 0.5 Mg Tablet 1 Tab PO TID 7 Days Multivitamins (Multivitamin) 1 Each Tablet 1 Tab PO DAILY Folic Acid 1 Mg Tablet 1 Tab PO DAILY Vitamin B-1 (Thiamine Hcl) 100 Mg Tablet 100 Mg PO DAILY 30 Days Famotidine 20 Mg Tablet 20 Mg PO BID 30 Days Feosol (Ferrous Sulfate) 325 Mg Tablet 325 Mg PO DAILYWBKFT 30 Days Reported Gabapentin 600 Mg Tablet 600 Mg PO TID Haloperidol 5 Mg Tablet 1 Tab PO BID Zyprexa (Olanzapine) 5 Mg Tablet 1 Tab PO QHS Prazosin Hcl 1 Mg Capsule 1 Cap PO QHS Trazodone Hcl 100 Mg Tablet 1 Tab PO QHS Hydroxyzine Hcl 25 Mg Tablet 3 Tab PO TID Zoloft (Sertraline Hcl) 50 Mg Tablet 1 Tab PO DAILY Vitals/I & O Vital Sign - Last 24 Hours 09/13/19 09/13/19 09/13/19 09/13/19 15:00 15:00 15:35 16:30 Temp 98.5 98.5 Pulse 98 Resp 17 16 16 17 B/P (MAP) 128/87 (101) Pulse Ox 96 O2 Delivery Room Air Nasal Cannula Nasal Cannula Nasal Cannula O2 Flow Rate 2.0 1.0 09/13/19 09/13/19 09/13/19 09/13/19 17:35 19:06 19:36 21:00 Temp 98.4 98.4 Pulse 110 110 Resp 16 B/P (MAP) 154/100 (118) 154/100 Pulse Ox 98 O2 Delivery Nasal Cannula Nasal Cannula Nasal Cannula O2 Flow Rate 1.0 2.0 2.0 09/13/19 09/13/19 09/14/19 09/14/19 22:34 23:01 03:39 07:04 Temp 98.1 98.3 97.9 98.1 98.3 97.9 Pulse 101 103 109 Resp 20 20 12 B/P (MAP) 145/98 (114) 143/89 (107) 145/99 (114) Pulse Ox 97 98 93 O2 Delivery Room Air Nasal Cannula Nasal Cannula Room Air O2 Flow Rate 2.0 2.0 09/14/19 09/14/19 09/14/19 09/14/19 07:50 08:00 08:59 09:02 Resp 12 14 Pulse Ox 93 93 93 O2 Delivery Room Air Room Air Room Air Room Air 09/14/19 09/14/19 09:31 11:15 Temp 98.0 98.0 Pulse 124 Resp 14 16 B/P (MAP) 125/92 (103) Pulse Ox 93 95 O2 Delivery Room Air Room Air Intake and Output 09/13/19 09/13/19 09/14/19 14:59 22:59 06:59 Intake Total 960 ml 1795 ml 400 ml Balance 960 ml 1795 ml 400 ml ROBIN TY MD Sep 14, 2019 11:36
--- NOTE | 2019-09-14 11:46 | PDOC3 ---
Discharge Summary Visit Information Date of Admission: Sep 10, 2019 Date of Discharge: Sep 14, 2019 Admitting Diagnosis Comment: Acute alcohol intoxication, schizophrenia, liver disease, but no primary neurological issue. SI intent with past hx ingestion sertraline in past ETOH Final Diagnosis Problems Medical Problems: (1) Aggressive behavior Status: Acute (2) Alcohol intoxication Status: Chronic (3) Suicidal ideation Status: Acute Brief Hospital Course Allergies Allergies Coded Allergies Type Severity Reaction Last Updated Verified No Known Drug Allergies 06/25/17 No Vital Signs Vital Signs Date Time Temp Pulse Resp B/P (MAP) Pulse Ox O2 Delivery O2 Flow Rate FiO2 09/14/19 11:15 98.0 124 16 125/92 (103) 95 Room Air 98.0 09/14/19 03:39 2.0 Lab Results Laboratory Tests Test 09/14/19 08:45 Ethyl Alcohol Level < 10 mg/dL (0-10) Laboratory Tests Test 09/14/19 08:45 Ethyl Alcohol Level < 10 mg/dL (0-10) Brief Hospital Course Mr. Dsouza is a 29 old male with schiz and past [place], admitted bec of etoh intox with high levels and haldol PO intake that he denies taking too many, HE denies being SI now, Stayed almost a week with us with sitter, Cleared from [facility] to ff up as OP psych, HE has hx OD on zoloft so i did not RX that, RPt EToh < 10. HE displayed narc seeking behavior unfortunately here - and signif time educating bec im fearful of giving him too much xanax and gabapentin which he is on here (also his home meds) bec of fear of him overdosing at home, I wrote a few RX, dw Evans and RN; HOme today OP psych pls in 1-2 weeks pls! Rx on chart time 32 mins cumulative consults: PAT team Discharge Information Condition at Discharge: Improved, Stable Follow Up: Weeks (OP psych in 1-2 weeks!) Disposition/Orders: D/C to Home Scheduled Chlordiazepoxide/Clidinium Br (Librax Capsule) 1 Each Capsule, 1 CAP PO TID for alcohol withdrawal, #30 Ref 3 Prescribed by: SONAL SANDS on 09/14/19 0837 Ferrous Sulfate (Feosol) 325 Mg Tablet, 325 MG PO DAILYWBKFT for 30 Days, #30 Prescribed by: YAYA MORTENSEN MD on 06/24/17 1218 Last Action: Continued on 09/11/191118 by KORY CRAIG MD Folic Acid (Folic Acid) 1 Mg Tablet, 1 TAB PO DAILY for liver, #90 Ref 1 Prescribed by: KUSH SOFIA on 07/07/191125 Last Action: Continued on 09/11/191118 by KORY CRAIG MD Gabapentin (Gabapentin) 600 Mg Tablet, 600 MG PO TID for NEUROGENIC PAIN, (Reported) Entered as Reported by: HANK JOHN on 08/21/19 0204 Last Action: HELD on 09/11/191118 by KORY CRAIG MD Hydroxyzine Hcl (Hydroxyzine Hcl) 25 Mg Tablet, 3 TAB PO TID for anxiety, (Reported) Entered as Reported by: AIME TOMPKINS RN on 08/18/19 1715 Last Action: HELD on 09/11/191118 by KORY CRAIG MD Lactulose (Lactulose) 20 Gm/30 Ml Solution, 20 GM PO BID for constipatrion for 5 Days Prescribed by: SONAL SANDS on 09/14/19 0837 Lorazepam (Lorazepam) 0.5 Mg Tablet, 1 TAB PO TID for dt for 7 Days, #21 Prescribed by: KSUH SOFIA on 07/07/191128 Last Action: Continued on 09/11/191118 by KORY CRAIG MD Multivitamin (Multivitamins) 1 Each Tablet, 1 TAB PO DAILY for liver, #90 Ref 3 Prescribed by: KUSH SOFIA on 07/07/191125 Last Action: Converted on 09/11/191118 by KORY CRAIG MD Olanzapine (Zyprexa) 5 Mg Tablet, 1 TAB PO QHS for Anxiety, (Reported) Entered as Reported by: HANK JOHN on 08/20/19 2100 Last Action: HELD on 09/11/191118 by KORY CRAIG MD Pantoprazole Sodium (Pantoprazole Sodium ) 40 Mg Tablet.dr, 40 MG PO DAILYAC for transient hematemesis, #60 Prescribed by: SONAL SANDS on 09/14/19 0837 Prazosin Hcl (Prazosin Hcl) 1 Mg Capsule, 1 CAP PO QHS for anxiety/depression, #30 Ref 2 (Reported) Entered as Reported by: AIME TOMPKINS RN on 08/18/191714 Last Action: Continued on 09/11/191118 by KORY CRAIG MD Thiamine Hcl (Vitamin B-1) 100 Mg Tablet, 100 MG PO DAILY for liver for 30 Days, #30 Prescribed by: KUSH SOFIA on 07/07/191125 Last Action: Converted on 09/11/191118 by KORY CRAIG MD Discontinued Medications Cyclobenzaprine Hcl (Cyclobenzaprine Hcl) 10 Mg Tablet, 10 MG PO PRN Q8HRS PRN for MUSCLE SPASMS for 30 Days, #30 Prescribed by: BENJIE CHANEL MD on 09/02/19 143 Last Action: Discontinued on 09/11/191118 by KORY CRAIG MD Famotidine (Famotidine) 20 Mg Tablet, 20 MG PO BID for 30 Days, #60 Prescribed by: YAYA MORTENSEN MD on 06/24/17 1218 Last Action: Continued on 09/11/191118 by KORY CRAIG MD Haloperidol (Haloperidol) 5 Mg Tablet, 1 TAB PO BID for Anxiety, (Reported) Entered as Reported by: HANK JOHN on 08/20/192104 Last Action: HELD on 09/11/191118 by KORY CRAIG MD Ibuprofen (Ibuprofen) 600 Mg Tablet, 600 MG PO PRN Q6HRS PRN for INFLAMMATION for 10 Days, #40 Prescribed by: BENJIE CHANEL MD on 09/02/19 1438 Last Action: HELD on 09/11/191118 by KORY CRAIG MD Sertraline Hcl (Zoloft) 50 Mg Tablet, 1 TAB PO DAILY for antidepressant, (Reported) Entered as Reported by: AIME TOMPKINS RN on 08/18/191714 Last Action: Continued on 09/11/191118 by KORY CRAIG MD Trazodone Hcl (Trazodone Hcl) 100 Mg Tablet, 1 TAB PO QHS for insomnia, (Reported) Entered as Reported by: AIME TOMPKINS RN on 08/18/191714 Last Action: HELD on 09/11/191118 by MD SHAVON CONNOR CHERRIE Y MD Sep 14, 2019 11:46
--- NOTE | 2019-09-14 12:44 | NUR ---
SW following pt. Pt seen by PAT team today and is not SI, does not meet criteria for inpt Pysch. Pt will dc home today with plan to f/u with [facility] for op tx. RN notified.
[2019-09-14 15:00] VITALS: BP 141/94
[2019-09-15] MEDS ORDERED: LACTULOSE 20 GM/30 ML SOLUTION. PO SCH (09:00)
[2019-09-16] MEDS ORDERED: THIAMINE IM 200 MG/2 ML VIAL. IM SCH (09:00)
== END 2019-09-14 16:05 | disposition home or self-care (01) | DRG 918 ==
LOC: ER 13:57 → 6 SOUTH 15:42
PROVIDERS: ADMIT Internal Medicine; ATTEND Internal Medicine
DX: T43.4X2A Poisoning by butyrophenone and thiothixene neuroleptics, intentional self-harm, initial encounter (principal); I85.00 Esophageal varices without bleeding; R45.851 Suicidal ideations; E87.6 Hypokalemia; F10.129 Alcohol abuse with intoxication, unspecified; E83.42 Hypomagnesemia; F20.9 Schizophrenia, unspecified; F32.9 Major depressive disorder, single episode, unspecified; G89.29 Other chronic pain; I10 Essential (primary) hypertension; K44.9 Diaphragmatic hernia without obstruction or gangrene; K74.60 Unspecified cirrhosis of liver; K80.20 Calculus of gallbladder without cholecystitis without obstruction; M19.90 Unspecified osteoarthritis, unspecified site; Z82.49 Family history of ischemic heart disease and other diseases of the circulatory system; S00.81XA Abrasion of other part of head, initial encounter; Y90.8 Blood alcohol level of 240 mg/100 ml or more; T51.0X2A Toxic effect of ethanol, intentional self-harm, initial encounter; Y92.89 Other specified places as the place of occurrence of the external cause; X58.XXXA Exposure to other specified factors, initial encounter; Y93.89 Activity, other specified; Y99.8 Other external cause status
CPT/HCPCS: 36415; 70450; 71045; 76705; 80053; 80307; 80329; 82140; 84443; 85025; 85610; 86705; 86709; 86803; 87340; 96361; 96372; 96374; G0480; J1170; J1200; J2060; J2405; J3486; J3490; J7030; 99285-25; G0378

== ENCOUNTER 2019-09-16 13:25 | Inpatient (IN) | payer MEDICAID ==
[~2019-09-16] VITALS: Ht 177.8 cm; Wt 101.6 kg
[~2019-09-16 13:25] MED LIST changes: +CHLO1CAP PO; +LACT20SO PO; +PANT40TA77 PO
[2019-09-16] MEDS ORDERED: IV NORMAL SALINE 1000ML BAG 1,000 ML IV ONE (13:45)
[2019-09-16] MEDS ORDERED: KETAMINE HCL IN NACL, ISO-OSM 50 MG/5 ML SYRINGE IV STA (13:54)
--- NOTE | 2019-09-16 13:54 | PHYS DOC ---
Past Medical History Past Medical History: Depression, Schizophrenia, Other Additional Past Medical Histor: TACHYCARDIA, alpha 1 antitrypsin deficiency, DDD Past Surgical History: No Surgical History Alcohol Use: Heavy Drug Use: None Adult General Chief Complaint Chief Complaint: SUICDAL IDEATION HPI HPI Patient is a 29 year old male who presents to the ER for the third time the last month for suicidal ideation and self-harm. The patient was combative for EMS gave him ketamine prior to arrival. The patient has superficial lacerations to left and right wrist. The patient also was heavily drinking vodka before EMS arrived. Review of Systems Review of Systems Unable to obtain due to patient condition. Current Medications Current Medications Current Medications Medications (Trade) Dose Ordered Sig/Renee Start Time Stop Time Status Last Admin Dose Admin Diphenhydramine HCl (Benadryl) 50 mg 1X STAT 09/16/19 16:47 09/16/19 16:49 DC Haloperidol Lactate (Haldol Inj) 5 mg 1X ONCE 09/16/19 17:00 09/16/19 17:01 Ketamine HCl (Ketamine) 30 mg 1X ONCE 09/16/19 15:45 09/16/19 15:49 DC 09/16/19 15:55 30 MG Lorazepam (Ativan Inj) 2 mg 1X STAT 09/16/19 16:47 09/16/19 16:49 DC Ondansetron HCl (Zofran) 4 mg 1X ONCE 09/16/19 14:15 09/16/19 14:16 DC 09/16/19 14:15 4 MG Sodium Chloride 1,000 ml @ 1,000 mls/hr 1X ONCE 09/16/19 13:45 09/16/19 14:44 DC 09/16/19 14:14 1,000 MLS/HR Allergies Allergies Allergies Coded Allergies Type Severity Reaction Last Updated Verified No Known Drug Allergies 06/25/17 No Physical Exam Physical Exam Constitutional: Well developed, well nourished, no acute distress, non-toxic appearance. [] HENT: Normocephalic, atraumatic, bilateral external ears normal, oropharynx moist, no oral exudates, nose normal. [] Eyes: PERRLA, EOMI, conjunctiva normal, no discharge. [] Neck: Normal range of motion, no tenderness, supple, no stridor. [] Cardiovascular:Heart rate regular rhythm, no murmur [] Lungs & Thorax: Bilateral breath sounds clear to auscultation [] Abdomen: Bowel sounds normal, soft, no tenderness, no masses, no pulsatile masses. [] Skin: Warm, dry, no erythema, no rash, superficial laceration to bilateral wrist. Back: No tenderness, no CVA tenderness. [] Extremities: No tenderness, no cyanosis, no clubbing, ROM intact, no edema. [] Neurologic: GCS of 13, normal motor function, normal sensory function, no focal deficits noted. [] Current Patient Data Vital Signs Vital Signs Date Time Temp Pulse Resp B/P (MAP) Pulse Ox O2 Delivery O2 Flow Rate FiO2 09/16/19 16:17 112 16 167/73 (104) 96 Room Air 09/16/19 15:32 2.0 Lab Values Laboratory Tests Test 09/16/19 13:48 09/16/19 15:13 White Blood Count 9.2 x10^3/uL (4.0-11.0) Red Blood Count 4.44 x10^6/uL (4.30-5.70) Hemoglobin 14.8 g/dL (13.0-17.5) Hematocrit 44.7 % (39.0-53.0) Mean Corpuscular Volume 101 fL (79-100) H Mean Corpuscular Hemoglobin 33 pg (25-35) Mean Corpuscular Hemoglobin Concent 33 g/dL (31-37) Red Cell Distribution Width 15.7 % (11.5-14.5) H Platelet Count 98 x10^3/uL (140-400) L Neutrophils (%) (Auto) 79 % (31-73) H Lymphocytes (%) (Auto) 15 % (24-48) L Monocytes (%) (Auto) 4 % (0-9) Eosinophils (%) (Auto) 1 % (0-3) Basophils (%) (Auto) 1 % (0-3) Neutrophils # (Auto) 7.3 x10^3/uL (1.8-7.7) Lymphocytes # (Auto) 1.4 x10^3/uL (1.0-4.8) Monocytes # (Auto) 0.4 x10^3/uL (0.0-1.1) Eosinophils # (Auto) 0.1 x10^3/uL (0.0-0.7) Basophils # (Auto) 0.1 x10^3/uL (0.0-0.2) Prothrombin Time 16.5 SEC (11.7-14.0) H Prothrombin Time INR 1.4 (0.8-1.1) H Activated Partial Thromboplast Time 38 SEC (24-38) Sodium Level 143 mmol/L (136-145) Potassium Level 3.3 mmol/L (3.5-5.1) L Chloride Level 109 mmol/L (98-107) H Carbon Dioxide Level 23 mmol/L (21-32) Anion Gap 11 (6-14) Blood Urea Nitrogen 3 mg/dL (8-26) L Creatinine 0.7 mg/dL (0.7-1.3) Estimated GFR (Cockcroft-Gault) 133.3 BUN/Creatinine Ratio 4 (6-20) L Glucose Level 106 mg/dL (70-99) H Calcium Level 9.1 mg/dL (8.5-10.1) Total Bilirubin 2.8 mg/dL (0.2-1.0) H Aspartate Amino Transferase (AST) 199 U/L (15-37) H Alanine Aminotransferase (ALT) 168 U/L (16-63) H Alkaline Phosphatase 259 U/L (46-116) H Total Protein 8.3 g/dL (6.4-8.2) H Albumin 3.6 g/dL (3.4-5.0) Albumin/Globulin Ratio 0.8 (1.0-1.7) L Salicylates Level < 2.8 mg/dL (2.8-20.0) L Salicylate Last Dose Date Unknown Salicylate Last Dose Time Unknown Acetaminophen Level < 2 mcg/ml (10-30) L Acetaminophen Last Dose Date Unknown Acetaminophen Last Dose Time Unknown Ethyl Alcohol Level 289 mg/dL (0-10) H Urine Collection Type Unknown Urine Color Yellow Urine Clarity Clear Urine pH 6.5 Urine Specific [place] <=1.005 Urine Protein Negative mg/dL (NEG-TRACE) Urine Glucose (UA) Negative mg/dL (NEG) Urine Ketones (Stick) Negative mg/dL (NEG) Urine Blood Negative (NEG) Urine Nitrite Negative (NEG) Urine Bilirubin Negative (NEG) Urine Urobilinogen Dipstick 1.0 mg/dL (0.2 mg/dL) Urine Leukocyte Esterase Negative (NEG) Urine RBC 0 /HPF (0-2) Urine WBC 0 /HPF (0-4) Urine Squamous Epithelial Cells Occ /LPF Urine Bacteria 0 /HPF (0-FEW) Urine Opiates Screen Neg (NEG) Urine Methadone Screen Neg (NEG) Urine Barbiturates Neg (NEG) Urine Phencyclidine Screen Neg (NEG) Urine Amphetamine/Methamphetamine Neg (NEG) Urine Benzodiazepines Screen Pos (NEG) Urine Cocaine Screen Neg (NEG) Urine Cannabinoids Screen Neg (NEG) Urine Ethyl Alcohol Pos (NEG) Laboratory Tests 09/16/19 13:48 Laboratory Tests 09/16/19 13:48 EKG EKG EKG interpreted by Dr. Feliciano Sinus tachycardia rate of 119, No STEMI. Radiology/Procedures Radiology/Procedures [] Course & Med Decision Making Course & Med Decision Making Pertinent Labs and Imaging studies reviewed. (See chart for details) Will get Labs, CT head, UA, and consult PAT. Patient is waking up and becoming combative. Will give Ketamine 0.2 mg/kg IV. Discussed with [facility] from PAT team who states he is unable to evaluate patient while he is intoxicated and will evaluate him once he is more sober. Also discussed that [facility] wants patient on a 72 [address] hold[address] Discuss[address] with Dr. Hogan ([id number]) about admission. Dr. Hogan is familiar with the patient and agrees to admission. Alcohol level is 289. Judit Disclaimer Judit Disclaimer This electronic medical record was generated, in whole or in part, using a voice recognition dictation system. Departure Departure Impression: Primary Impression: Alcohol intoxication Additional Impressions: Aggressive behavior Suicidal ideation Disposition: 09 ADMITTED INPATIENT Admitting Physician: LEE Condition: GUARDED Referrals: UNKNOWN PCP NAME (PCP) Problem Qualifiers MEENA JEAN APRN Sep 16, 2019 13:54
[2019-09-16 14:02] LABS: BASO # 0.1 x10^3/uL (0.0-0.2); BASO % 1 % (0-3); EOS # 0.1 x10^3/uL (0.0-0.7); EOS % 1 % (0-3); HEMATOCRIT 44.7 % (39.0-53.0); HEMOGLOBIN 14.8 g/dL (13.0-17.5); LYMPH # 1.4 x10^3/uL (1.0-4.8); LYMPH % 15 % (24-48); MEAN CORPUSCULAR HEMOGLOBIN 33 pg (25-35); MEAN CORPUSCULAR HGB CONC 33 g/dL (31-37); MEAN CORPUSCULAR VOLUME 101 fL (79-100); MONO # 0.4 x10^3/uL (0.0-1.1); MONO % 4 % (0-9); NEUT # 7.3 x10^3/uL (1.8-7.7); NEUT % 79 % (31-73); PLATELET COUNT 98 x10^3/uL (140-400); RED BLOOD COUNT 4.44 x10^6/uL (4.30-5.70); RED CELL DISTRIBUTION WIDTH 15.7 % (11.5-14.5); WHITE BLOOD COUNT 9.2 x10^3/uL (4.0-11.0)
[2019-09-16 14:07] LABS: CALCIUM 9.1 mg/dL (8.5-10.1); CREATININE 0.7 mg/dL (0.7-1.3); GFR 133.3; POTASSIUM 3.3 mmol/L (3.5-5.1)
[2019-09-16 14:08] LABS: PROTHROMBIN TIME PATIENT 16.5 SEC (11.7-14.0)
[2019-09-16 14:12] LABS: ACETAMIN < 2 mcg/ml (10-30); ETHANOL 289 mg/dL (0-10)
[2019-09-16 14:13] LABS: ALBUMIN 3.6 g/dL (3.4-5.0); ALBUMIN/GLOBULIN RATIO 0.8 (1.0-1.7); SALIC < 2.8 mg/dL (2.8-20.0); TOTAL BILIRUBIN 2.8 mg/dL (0.2-1.0); TOTAL PROTEIN 8.3 g/dL (6.4-8.2)
[2019-09-16] MEDS ORDERED: ONDANSETRON PF 4 MG/2 ML VIAL. IV ONE (14:15)
--- NOTE | 2019-09-16 15:10 | NUR ---
SW received a phone call from [facility] worker Snehal Mckeon, phone: [phone]- they would like pt to have a 72 hour hold not dc home. Passed this to ED RN. PAT team consult noted.
--- NOTE | 2019-09-16 15:19 | EKG ---
[facility] [address] [place] [address] Test Date: 2019-09-16 Test Time: 14:43:28 Pat Name: DENISHA MCFARLAND Department: Room: Gender: M Teamsite Developer: : 1990 Requested By: MEENA JEAN Order Number: [id number] Reading MD: Jarrell Newton MD Measurements Intervals [place] Rate: 119 P: 48 AL: 134 QRS: -10 QRSD: 102 T: 28 QT: 358 QTc: 504 Interpretive Statements SINUS TACHYCARDIAL LAD Electronically Signed On 09-27-2019 9:38:22 CDT by Jarrell Newton MD
[2019-09-16] MEDS ORDERED: KETAMINE HCL IN NACL, ISO-OSM 50 MG/5 ML SYRINGE IV ONE (15:45)
[2019-09-16 15:52] LABS: BILIRUBIN,URINE NEGATIVE (NEG); CLARITY,URINE CLEAR; COLOR,URINE YELLOW; NITRITE,URINE NEGATIVE (NEG); PH,URINE 6.5; PROTEIN,URINE NEGATIVE (NEG-TRACE)
[2019-09-16 16:00] LABS: AMPHETAMINE/METHAMPHETAMINE NEG (NEG); BARBITURATES NEG (NEG); BENZODIAZEPINES POS (NEG); CANNABINOIDS NEG (NEG); COCAINE NEG (NEG); METHADONE NEG (NEG); OPIATES NEG (NEG); PHENCYCLIDINE NEG (NEG)
[2019-09-16 16:02] LABS: BACTERIA,URINE 0 /HPF (0-FEW); RBC,URINE 0 /HPF (0-2); SQUAMOUS EPITHELIAL CELL,UR OCC /LPF; WBC,URINE 0 /HPF (0-4)
[2019-09-16] MEDS ORDERED: diphenhydrAMINE 50 MG/ML VIAL IVP STA (16:47)
[2019-09-16] MEDS ORDERED: HALOPERIDOL LACTATE 5 MG/ML VIAL. IVP ONE (17:00)
[2019-09-16] MEDS ORDERED: IV NORMAL SALINE 500ML BAG 500 ML IV ONE (17:15)
--- NOTE | 2019-09-16 18:45 | RAD ---
CT head without contrast PQRS statement: CT scans at this facility use dose reduction including either automated exposure control, iterative reconstructions, and /or weight based radiation dosing via mA and kV modification when appropriate to reduce radiation dose to as low as reasonably achievable. HISTORY: Altered mental status. COMPARISON: CT head September 11, 2019. TECHNIQUE: Noncontrast CT imaging of the head with coronal reconstructions. FINDINGS: No intracranial hemorrhage, mass, hydrocephalus, extra-axial fluid collections or infarction. No acute ischemic change. Imaged orbits, mastoids and bones are unremarkable. IMPRESSION: Normal exam. Electronically signed by: Wesley Merchant MD (09/16/2019 6:43 PM) [facility]
[2019-09-16 19:00] VITALS: BP 122/79
--- NOTE | 2019-09-16 19:00 | HP ---
ADMIT DATE: 09/16/2019 CHIEF COMPLAINT: Suicidal ideation, alcohol abuse. HISTORY OF PRESENT ILLNESS: The patient is a pleasant 29-year-old male who was trying to hurt himself 3 times within the past 3 weeks. He drinks heavily today. He presented drunk and he has been trying to hurt himself again. I discussed the case with ER physician. We have been giving him p.r.n. ketamine to help keep him sedated. We are going to admit the patient and consult the psychiatric assessment team. It should be noted that it appears he is found to have some superficial lacerations to the left forehead. He also has some right wrist lacerations. PAST MEDICAL HISTORY: Multiple previous suicide attempts, depression, schizophrenia, tachycardia, alpha-1 antitrypsin deficiency, degenerative joint disease, tobacco abuse, alcohol abuse. ALLERGIES: None. FAMILY HISTORY: Alcohol abuse. SOCIAL HISTORY: He drinks and smokes. I think he may be using drugs too. I am not sure. MEDICATIONS: Reviewed, please refer to the MRAD. REVIEW OF SYSTEMS: Unable to obtain. The patient is too confused. PHYSICAL EXAMINATION: VITALS: Within normal limits and are stable. GENERAL: No apparent distress. Alert and oriented. HEENT: Head is normocephalic, atraumatic, pupils were equally round and reactive to light and accommodation. NECK: Supple, no JVD, no thyromegaly was noted. LUNGS: Clear to auscultation in all lung topete without rhonchi or wheezing. HEART: RRR, S1, S2 present. Peripheral pulses intact, no obvious murmurs were noted. ABDOMEN: Soft, nontender. Positive bowel sounds no organomegaly, normal bowel sounds. EXTREMITIES: Without any cyanosis, clubbing, or edema. Pedal pulses intact, Homans sign is negative. NEUROLOGIC: He is very confused. PSYCHIATRIC: He seems depressed. SKIN: He has some abrasions on his left forehead. VASCULAR: Good capillary refill, neurovascular bundle appears to be intact. LABORATORY DATA: White count 9. Electrolytes; sodium 143, potassium 3.3, chloride 109, bicarbonate 23, BUN 3, creatinine 0.7, glucose 106. AST 199, ALT 166, alkaline phosphatase 259. Drug screen positive for benzos and alcohol. Urinalysis negative. CT of the head is pending. ASSESSMENT AND PLAN: Suicidal ideation, possible suicide attempt, alcohol abuse in a middle-aged male who has multiple psychiatric issues. The patient has been admitted once again for the third time within the past few weeks. I suspect he probably needs to be in an inpatient facility, probably indefinitely. We will go ahead and consult the psychiatric assessment team for their opinion. For now, we are going to do 1:1 observation. P.r.n. sedatives wound fpc meds. PROGNOSIS: Guarded. NIAL Sarah VELÁSQUEZ DO DR: FRANKIE/alysia JOB#: [id number] / [id number]
[2019-09-16] MEDS ORDERED: HALOPERIDOL LACTATE 5 MG/ML VIAL. IVP PRN (22:15)
[2019-09-16 22:52] VITALS: BP 137/87
[2019-09-16] MEDS: MORPHINE SULFATE 2 MG/ML VIAL. IV PRN (23:30)
[2019-09-17 02:42] VITALS: BP 143/86
[2019-09-17] MEDS: MORPHINE SULFATE 2 MG/ML VIAL. IV PRN ×3 (02:56→08:44)
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
[2019-09-17 07:02] VITALS: BP 131/78
--- NOTE | 2019-09-17 07:56 | PDOC ---
PROGRESS NOTES History of Present Illness History of Present Illness ASSESSMENT AND PLAN: Suicidal ideation, suicide attempt, alcohol abuse multiple psychiatric issues. admitted . NEEDS inpatient facility, psychiatric assessment team 1:1 observation. P.r.n. sedatives wound custodial meds. Vitals Vitals Vital Signs Date Time Temp Pulse Resp B/P (MAP) Pulse Ox O2 Delivery O2 Flow Rate FiO2 09/17/19 07:02 98.2 97 18 131/78 (95) 95 Nasal Cannula 2.0 98.2 Physical Exam General: Cooperative Heart: Regular rate Lungs: Clear Abdomen: Soft Extremities: No cyanosis Labs LABS Laboratory Tests Test 09/16/19 13:48 09/16/19 15:13 White Blood Count 9.2 x10^3/uL (4.0-11.0) Red Blood Count 4.44 x10^6/uL (4.30-5.70) Hemoglobin 14.8 g/dL (13.0-17.5) Hematocrit 44.7 % (39.0-53.0) Mean Corpuscular Volume 101 fL (79-100) Mean Corpuscular Hemoglobin 33 pg (25-35) Mean Corpuscular Hemoglobin Concent 33 g/dL (31-37) Red Cell Distribution Width 15.7 % (11.5-14.5) Platelet Count 98 x10^3/uL (140-400) Neutrophils (%) (Auto) 79 % (31-73) Lymphocytes (%) (Auto) 15 % (24-48) Monocytes (%) (Auto) 4 % (0-9) Eosinophils (%) (Auto) 1 % (0-3) Basophils (%) (Auto) 1 % (0-3) Neutrophils # (Auto) 7.3 x10^3/uL (1.8-7.7) Lymphocytes # (Auto) 1.4 x10^3/uL (1.0-4.8) Monocytes # (Auto) 0.4 x10^3/uL (0.0-1.1) Eosinophils # (Auto) 0.1 x10^3/uL (0.0-0.7) Basophils # (Auto) 0.1 x10^3/uL (0.0-0.2) Prothrombin Time 16.5 SEC (11.7-14.0) Prothromb Time International Ratio 1.4 (0.8-1.1) Activated Partial Thromboplast Time 38 SEC (24-38) Sodium Level 143 mmol/L (136-145) Potassium Level 3.3 mmol/L (3.5-5.1) Chloride Level 109 mmol/L (98-107) Carbon Dioxide Level 23 mmol/L (21-32) Anion Gap 11 (6-14) Blood Urea Nitrogen 3 mg/dL (8-26) Creatinine 0.7 mg/dL (0.7-1.3) Estimated GFR (Cockcroft-Gault) 133.3 BUN/Creatinine Ratio 4 (6-20) Glucose Level 106 mg/dL (70-99) Calcium Level 9.1 mg/dL (8.5-10.1) Total Bilirubin 2.8 mg/dL (0.2-1.0) Aspartate Amino Transf (AST/SGOT) 199 U/L (15-37) Alanine Aminotransferase (ALT/SGPT) 168 U/L (16-63) Alkaline Phosphatase 259 U/L (46-116) Total Protein 8.3 g/dL (6.4-8.2) Albumin 3.6 g/dL (3.4-5.0) Albumin/Globulin Ratio 0.8 (1.0-1.7) Salicylates Level < 2.8 mg/dL (2.8-20.0) Salicylate Last Dose Date Unknown Salicylate Last Dose Time Unknown Acetaminophen Level < 2 mcg/ml (10-30) Acetaminophen Last Dose Date Unknown Acetaminophen Last Dose Time Unknown Ethyl Alcohol Level 289 mg/dL (0-10) Urine Collection Type Unknown Urine Color Yellow Urine Clarity Clear Urine pH 6.5 Urine Specific [place] <=1.005 Urine Protein Negative mg/dL (NEG-TRACE) Urine Glucose (UA) Negative mg/dL (NEG) Urine Ketones (Stick) Negative mg/dL (NEG) Urine Blood Negative (NEG) Urine Nitrite Negative (NEG) Urine Bilirubin Negative (NEG) Urine Urobilinogen Dipstick 1.0 mg/dL (0.2 mg/dL) Urine Leukocyte Esterase Negative (NEG) Urine RBC 0 /HPF (0-2) Urine WBC 0 /HPF (0-4) Urine Squamous Epithelial Cells Occ /LPF Urine Bacteria 0 /HPF (0-FEW) Urine Opiates Screen Neg (NEG) Urine Methadone Screen Neg (NEG) Urine Barbiturates Neg (NEG) Urine Phencyclidine Screen Neg (NEG) Urine Amphetamine/Methamphetamine Neg (NEG) Urine Benzodiazepines Screen Pos (NEG) Urine Cocaine Screen Neg (NEG) Urine Cannabinoids Screen Neg (NEG) Urine Ethyl Alcohol Pos (NEG) Assessment and Plan Assessmemt and Plan Problems Medical Problems: (1) Aggressive behavior Status: Acute (2) Alcohol intoxication Status: Chronic (3) Suicidal ideation Status: Acute Comment Review of Relevant I have reviewed the following items mc (where applicable) has been applied. Labs Laboratory Tests Test 09/16/19 13:48 09/16/19 15:13 White Blood Count 9.2 x10^3/uL (4.0-11.0) Red Blood Count 4.44 x10^6/uL (4.30-5.70) Hemoglobin 14.8 g/dL (13.0-17.5) Hematocrit 44.7 % (39.0-53.0) Mean Corpuscular Volume 101 fL (79-100) Mean Corpuscular Hemoglobin 33 pg (25-35) Mean Corpuscular Hemoglobin Concent 33 g/dL (31-37) Red Cell Distribution Width 15.7 % (11.5-14.5) Platelet Count 98 x10^3/uL (140-400) Neutrophils (%) (Auto) 79 % (31-73) Lymphocytes (%) (Auto) 15 % (24-48) Monocytes (%) (Auto) 4 % (0-9) Eosinophils (%) (Auto) 1 % (0-3) Basophils (%) (Auto) 1 % (0-3) Neutrophils # (Auto) 7.3 x10^3/uL (1.8-7.7) Lymphocytes # (Auto) 1.4 x10^3/uL (1.0-4.8) Monocytes # (Auto) 0.4 x10^3/uL (0.0-1.1) Eosinophils # (Auto) 0.1 x10^3/uL (0.0-0.7) Basophils # (Auto) 0.1 x10^3/uL (0.0-0.2) Prothrombin Time 16.5 SEC (11.7-14.0) Prothromb Time International Ratio 1.4 (0.8-1.1) Activated Partial Thromboplast Time 38 SEC (24-38) Sodium Level 143 mmol/L (136-145) Potassium Level 3.3 mmol/L (3.5-5.1) Chloride Level 109 mmol/L (98-107) Carbon Dioxide Level 23 mmol/L (21-32) Anion Gap 11 (6-14) Blood Urea Nitrogen 3 mg/dL (8-26) Creatinine 0.7 mg/dL (0.7-1.3) Estimated GFR (Cockcroft-Gault) 133.3 BUN/Creatinine Ratio 4 (6-20) Glucose Level 106 mg/dL (70-99) Calcium Level 9.1 mg/dL (8.5-10.1) Total Bilirubin 2.8 mg/dL (0.2-1.0) Aspartate Amino Transf (AST/SGOT) 199 U/L (15-37) Alanine Aminotransferase (ALT/SGPT) 168 U/L (16-63) Alkaline Phosphatase 259 U/L (46-116) Total Protein 8.3 g/dL (6.4-8.2) Albumin 3.6 g/dL (3.4-5.0) Albumin/Globulin Ratio 0.8 (1.0-1.7) Salicylates Level < 2.8 mg/dL (2.8-20.0) Salicylate Last Dose Date Unknown Salicylate Last Dose Time Unknown Acetaminophen Level < 2 mcg/ml (10-30) Acetaminophen Last Dose Date Unknown Acetaminophen Last Dose Time Unknown Ethyl Alcohol Level 289 mg/dL (0-10) Urine Collection Type Unknown Urine Color Yellow Urine Clarity Clear Urine pH 6.5 Urine Specific [place] <=1.005 Urine Protein Negative mg/dL (NEG-TRACE) Urine Glucose (UA) Negative mg/dL (NEG) Urine Ketones (Stick) Negative mg/dL (NEG) Urine Blood Negative (NEG) Urine Nitrite Negative (NEG) Urine Bilirubin Negative (NEG) Urine Urobilinogen Dipstick 1.0 mg/dL (0.2 mg/dL) Urine Leukocyte Esterase Negative (NEG) Urine RBC 0 /HPF (0-2) Urine WBC 0 /HPF (0-4) Urine Squamous Epithelial Cells Occ /LPF Urine Bacteria 0 /HPF (0-FEW) Urine Opiates Screen Neg (NEG) Urine Methadone Screen Neg (NEG) Urine Barbiturates Neg (NEG) Urine Phencyclidine Screen Neg (NEG) Urine Amphetamine/Methamphetamine Neg (NEG) Urine Benzodiazepines Screen Pos (NEG) Urine Cocaine Screen Neg (NEG) Urine Cannabinoids Screen Neg (NEG) Urine Ethyl Alcohol Pos (NEG) Laboratory Tests Test 09/16/19 13:48 09/16/19 15:13 White Blood Count 9.2 x10^3/uL (4.0-11.0) Red Blood Count 4.44 x10^6/uL (4.30-5.70) Hemoglobin 14.8 g/dL (13.0-17.5) Hematocrit 44.7 % (39.0-53.0) Mean Corpuscular Volume 101 fL (79-100) Mean Corpuscular Hemoglobin 33 pg (25-35) Mean Corpuscular Hemoglobin Concent 33 g/dL (31-37) Red Cell Distribution Width 15.7 % (11.5-14.5) Platelet Count 98 x10^3/uL (140-400) Neutrophils (%) (Auto) 79 % (31-73) Lymphocytes (%) (Auto) 15 % (24-48) Monocytes (%) (Auto) 4 % (0-9) Eosinophils (%) (Auto) 1 % (0-3) Basophils (%) (Auto) 1 % (0-3) Neutrophils # (Auto) 7.3 x10^3/uL (1.8-7.7) Lymphocytes # (Auto) 1.4 x10^3/uL (1.0-4.8) Monocytes # (Auto) 0.4 x10^3/uL (0.0-1.1) Eosinophils # (Auto) 0.1 x10^3/uL (0.0-0.7) Basophils # (Auto) 0.1 x10^3/uL (0.0-0.2) Prothrombin Time 16.5 SEC (11.7-14.0) Prothromb Time International Ratio 1.4 (0.8-1.1) Activated Partial Thromboplast Time 38 SEC (24-38) Sodium Level 143 mmol/L (136-145) Potassium Level 3.3 mmol/L (3.5-5.1) Chloride Level 109 mmol/L (98-107) Carbon Dioxide Level 23 mmol/L (21-32) Anion Gap 11 (6-14) Blood Urea Nitrogen 3 mg/dL (8-26) Creatinine 0.7 mg/dL (0.7-1.3) Estimated GFR (Cockcroft-Gault) 133.3 BUN/Creatinine Ratio 4 (6-20) Glucose Level 106 mg/dL (70-99) Calcium Level 9.1 mg/dL (8.5-10.1) Total Bilirubin 2.8 mg/dL (0.2-1.0) Aspartate Amino Transf (AST/SGOT) 199 U/L (15-37) Alanine Aminotransferase (ALT/SGPT) 168 U/L (16-63) Alkaline Phosphatase 259 U/L (46-116) Total Protein 8.3 g/dL (6.4-8.2) Albumin 3.6 g/dL (3.4-5.0) Albumin/Globulin Ratio 0.8 (1.0-1.7) Salicylates Level < 2.8 mg/dL (2.8-20.0) Salicylate Last Dose Date Unknown Salicylate Last Dose Time Unknown Acetaminophen Level < 2 mcg/ml (10-30) Acetaminophen Last Dose Date Unknown Acetaminophen Last Dose Time Unknown Ethyl Alcohol Level 289 mg/dL (0-10) Urine Collection Type Unknown Urine Color Yellow Urine Clarity Clear Urine pH 6.5 Urine Specific [place] <=1.005 Urine Protein Negative mg/dL (NEG-TRACE) Urine Glucose (UA) Negative mg/dL (NEG) Urine Ketones (Stick) Negative mg/dL (NEG) Urine Blood Negative (NEG) Urine Nitrite Negative (NEG) Urine Bilirubin Negative (NEG) Urine Urobilinogen Dipstick 1.0 mg/dL (0.2 mg/dL) Urine Leukocyte Esterase Negative (NEG) Urine RBC 0 /HPF (0-2) Urine WBC 0 /HPF (0-4) Urine Squamous Epithelial Cells Occ /LPF Urine Bacteria 0 /HPF (0-FEW) Urine Opiates Screen Neg (NEG) Urine Methadone Screen Neg (NEG) Urine Barbiturates Neg (NEG) Urine Phencyclidine Screen Neg (NEG) Urine Amphetamine/Methamphetamine Neg (NEG) Urine Benzodiazepines Screen Pos (NEG) Urine Cocaine Screen Neg (NEG) Urine Cannabinoids Screen Neg (NEG) Urine Ethyl Alcohol Pos (NEG) Medications Current Medications Sodium Chloride 1,000 ml @ 1,000 mls/hr 1X ONCE IV Last administered on 09/16/19at 14:14; Start 09/16/19 at 13:45; Stop 09/16/19 at 14:44; Status DC Ketamine HCl (Ketamine) 20 mg 1X STAT IV Last administered on 09/16/19at 14:14; Start 09/16/19 at 13:54; Stop 09/16/19 at 13:57; Status DC Ondansetron HCl (Zofran) 4 mg 1X ONCE IV Last administered on 09/16/19at 14:15; Start 09/16/19 at 14:15; Stop 09/16/19 at 14:16; Status DC Ketamine HCl (Ketamine) 30 mg 1X ONCE IV Last administered on 09/16/19at 15:55; Start 09/16/19 at 15:45; Stop 09/16/19 at 15:49; Status DC Diphenhydramine HCl (Benadryl) 50 mg 1X STAT IVP Last administered on 09/16/19at 17:07; Start 09/16/19 at 16:47; Stop 09/16/19 at 16:49; Status DC Lorazepam (Ativan Inj) 2 mg 1X STAT IVP Last administered on 09/16/19at 17:06; Start 09/16/19 at 16:47; Stop 09/16/19 at 16:49; Status DC Haloperidol Lactate (Haldol Inj) 5 mg 1X ONCE IVP Last administered on 09/16/19at 17:06; Start 09/16/19 at 17:00; Stop 09/16/19 at 17:01; Status DC Sodium Chloride 500 ml @ 500 mls/hr 1X ONCE IV Last administered on 09/16/19at 17:15; Start 09/16/19 at 17:15; Stop 09/16/19 at 18:14; Status DC Haloperidol Lactate (Haldol Inj) 5 mg PRN Q6HRS PRN IVP AGITATION; Start 09/16/19 at 22:15 Morphine Sulfate (Morphine Sulfate) 2 mg PRN Q2HR PRN IV PAIN Last administered on 09/17/19at 05:21; Start 09/16/19 at 22:15 Lorazepam (Ativan Inj) 2 mg PRN Q1HR PRN IV For CIWA 8-14 Last administered on 09/17/19at 05:20; Start 09/16/19 at 22:15 Lorazepam (Ativan Inj) 4 mg PRN Q1HR PRN IV For CIWA 15 or greater; Start 09/16/19 at 22:15 Active Scripts Active Librax Capsule (Chlordiazepoxide/Clidinium Br) 1 Each Capsule 1 Cap PO TID Pantoprazole Sodium (Pantoprazole Sodium) 40 Mg Tablet.dr 40 Mg PO DAILYAC Lactulose 20 Gm/30 Ml Solution 20 Gm PO BID 5 Days Lorazepam 0.5 Mg Tablet 1 Tab PO TID 7 Days Multivitamins (Multivitamin) 1 Each Tablet 1 Tab PO DAILY Folic Acid 1 Mg Tablet 1 Tab PO DAILY Vitamin B-1 (Thiamine Hcl) 100 Mg Tablet 100 Mg PO DAILY 30 Days Feosol (Ferrous Sulfate) 325 Mg Tablet 325 Mg PO [id number] 30 Days Reported Gabapentin 600 Mg Tablet 600 Mg PO TID Zyprexa (Olanzapine) 5 Mg Tablet 1 Tab PO QHS Prazosin Hcl 1 Mg Capsule 1 Cap PO QHS Hydroxyzine Hcl 25 Mg Tablet 3 Tab PO TID Vitals/I & O Vital Sign - Last 24 Hours 09/16/19 09/16/19 09/16/19 09/16/19 13:25 13:45 14:02 14:17 Pulse 130 132 136 126 Resp 14 16 18 20 B/P (MAP) 154/93 (113) 147/80 (102) 116/78 (91) 132/90 (104) Pulse Ox 96 96 91 93 O2 Delivery Nasal Cannula Nasal Cannula Nasal Cannula Nasal Cannula O2 Flow Rate 2.0 2.0 2.0 2.0 09/16/19 09/16/19 09/16/19 09/16/19 14:32 14:48 15:02 15:17 Pulse 120 120 114 112 Resp 20 18 20 20 B/P (MAP) 129/79 (96) 151/95 (113) 150/86 (107) 149/83 (105) Pulse Ox 90 98 98 99 O2 Delivery Nasal Cannula Nasal Cannula Nasal Cannula Nasal Cannula O2 Flow Rate 2.0 2.0 2.0 2.0 09/16/19 09/16/19 09/16/19 09/16/19 15:32 16:00 16:17 16:47 Pulse 118 112 112 112 Resp 18 16 16 16 B/P (MAP) 140/77 (98) 145/87 (106) 167/73 (104) 176/89 (118) Pulse Ox 96 96 96 96 O2 Delivery Nasal Cannula Room Air Room Air Room Air O2 Flow Rate 2.0 09/16/19 09/16/19 09/16/19 09/16/19 17:09 17:30 18:00 19:00 Temp 98.4 98.4 Pulse 100 101 96 95 Resp 16 16 16 18 B/P (MAP) 142/73 (96) 127/81 (96) 124/83 (97) 122/79 (93) Pulse Ox 96 94 94 97 O2 Delivery Room Air Nasal Cannula Nasal Cannula Nasal Cannula O2 Flow Rate 2.0 09/16/19 09/16/19 09/16/19 09/16/19 19:00 20:00 22:52 23:30 Temp 98.4 98.2 98.4 98.2 Pulse 95 92 Resp 18 17 B/P (MAP) 122/79 (93) 137/87 (104) Pulse Ox 97 97 O2 Delivery Nasal Cannula Room Air Nasal Cannula Room Air O2 Flow Rate 2.0 2.0 2.0 09/17/19 09/17/19 09/17/19 09/17/19 00:00 02:42 02:56 03:26 Temp 98.1 98.1 Pulse 102 Resp 18 B/P (MAP) 143/86 (105) Pulse Ox 96 O2 Delivery Room Air Nasal Cannula Room Air Room Air 09/17/19 09/17/19 09/17/19 05:21 05:51 07:02 Temp 98.2 98.2 Pulse 97 Resp 18 B/P (MAP) 131/78 (95) Pulse Ox 95 O2 Delivery Room Air Room Air Nasal Cannula O2 Flow Rate 2.0 Intake and Output 09/16/19 09/16/19 09/17/19 15:00 23:00 07:00 Intake Total 1800 ml 400 ml Balance 1800 ml 400 ml KORY CRAIG MD Sep 17, 2019 07:56
--- NOTE | 2019-09-17 09:34 | PDOC ---
PROGRESS NOTES Chief Complaint Chief Complaint Assessment/Plan: EtOH abuse - with acute intoxication on admission Suicide attempt with wrist laceration alcohol FALL, ABRASION LEFT forehead major depression Chronic pain epigastric and RUQ PAIN, radiates to back, worse with meals Hypomagnesemia Hypokalemia LEG pain - poss neuropathy Schizophrenia? Alpha-1 antitrypsin deficiency - MZ mutation - increases his risk of liver disease given his ETOH abuse DJD TRANSAMINITIS, IMPROVING OFF ETOH Hepatic cirrhosis and findings of portal hypertension , C/W END ORGAN INJURY Esophageal varices are numerous and more notable in the interval. ON RECENT CT Gallstone lodged at the gallbladder neck, no gallbladder wall thickening - seen by general surgery previously, no indication for surgery Plan: NEEDS inpatient facility, likely longer term given he was at [facility] and was readmitted here within days of discharge from inpatient psych Wound care clear liquids 1:1 observation. Consult Psychiatric Assessment Team. IV fluids. home meds. CIWA protocol. gi CONSULT hold hepatotoxic drugs inr follow LFT'S UNSAFE DISCHARGE AT THIS TIME decrease iv dilaudid and add oral pain meds POOR PROGNOSIS NEEDS inpatient facility, likely longer term given he was at [facility] and was readmitted here within days of discharge from inpatient psych Wound care d/w RN and PAT TEAM 38 MIN PT EXAM, CHART REVIEW, > 50% OF time spent with exam, chart review, pt care coordination History of Present Illness History of Present Illness Mr Dsouza is a 29-year-old male who has history of schizophrenia?, history of previous suicidal attempts (6 in the past year at [place]), history of alcohol abuse, DJD, and h/o alpha-1 antitrypsin deficiency. He was brought into the hospital after he appears to have ingested alcohol and attempted a wrist laceration. He presented drunk and he has been trying to hurt himself again. He is stating he has severe pain, falls asleep easily. He denies a new suicide attempt, notes he did just as he told me he would and went home and started drinking after leaving inpatient psych. Vitals Vitals Vital Signs Date Time Temp Pulse Resp B/P (MAP) Pulse Ox O2 Delivery O2 Flow Rate FiO2 09/17/19 08:59 Nasal Cannula 2.0 09/17/19 08:44 95 09/17/19 07:02 98.2 97 18 131/78 (95) 98.2 Physical Exam General: Alert, Oriented X3, Cooperative Heart: Regular rate Lungs: Clear Abdomen: Soft Extremities: No cyanosis Labs LABS Laboratory Tests Test 09/16/19 13:48 09/16/19 15:13 White Blood Count 9.2 x10^3/uL (4.0-11.0) Red Blood Count 4.44 x10^6/uL (4.30-5.70) Hemoglobin 14.8 g/dL (13.0-17.5) Hematocrit 44.7 % (39.0-53.0) Mean Corpuscular Volume 101 fL (79-100) Mean Corpuscular Hemoglobin 33 pg (25-35) Mean Corpuscular Hemoglobin Concent 33 g/dL (31-37) Red Cell Distribution Width 15.7 % (11.5-14.5) Platelet Count 98 x10^3/uL (140-400) Neutrophils (%) (Auto) 79 % (31-73) Lymphocytes (%) (Auto) 15 % (24-48) Monocytes (%) (Auto) 4 % (0-9) Eosinophils (%) (Auto) 1 % (0-3) Basophils (%) (Auto) 1 % (0-3) Neutrophils # (Auto) 7.3 x10^3/uL (1.8-7.7) Lymphocytes # (Auto) 1.4 x10^3/uL (1.0-4.8) Monocytes # (Auto) 0.4 x10^3/uL (0.0-1.1) Eosinophils # (Auto) 0.1 x10^3/uL (0.0-0.7) Basophils # (Auto) 0.1 x10^3/uL (0.0-0.2) Prothrombin Time 16.5 SEC (11.7-14.0) Prothromb Time International Ratio 1.4 (0.8-1.1) Activated Partial Thromboplast Time 38 SEC (24-38) Sodium Level 143 mmol/L (136-145) Potassium Level 3.3 mmol/L (3.5-5.1) Chloride Level 109 mmol/L (98-107) Carbon Dioxide Level 23 mmol/L (21-32) Anion Gap 11 (6-14) Blood Urea Nitrogen 3 mg/dL (8-26) Creatinine 0.7 mg/dL (0.7-1.3) Estimated GFR (Cockcroft-Gault) 133.3 BUN/Creatinine Ratio 4 (6-20) Glucose Level 106 mg/dL (70-99) Calcium Level 9.1 mg/dL (8.5-10.1) Total Bilirubin 2.8 mg/dL (0.2-1.0) Aspartate Amino Transf (AST/SGOT) 199 U/L (15-37) Alanine Aminotransferase (ALT/SGPT) 168 U/L (16-63) Alkaline Phosphatase 259 U/L (46-116) Total Protein 8.3 g/dL (6.4-8.2) Albumin 3.6 g/dL (3.4-5.0) Albumin/Globulin Ratio 0.8 (1.0-1.7) Salicylates Level < 2.8 mg/dL (2.8-20.0) Salicylate Last Dose Date Unknown Salicylate Last Dose Time Unknown Acetaminophen Level < 2 mcg/ml (10-30) Acetaminophen Last Dose Date Unknown Acetaminophen Last Dose Time Unknown Ethyl Alcohol Level 289 mg/dL (0-10) Urine Collection Type Unknown Urine Color Yellow Urine Clarity Clear Urine pH 6.5 Urine Specific [place] <=1.005 Urine Protein Negative mg/dL (NEG-TRACE) Urine Glucose (UA) Negative mg/dL (NEG) Urine Ketones (Stick) Negative mg/dL (NEG) Urine Blood Negative (NEG) Urine Nitrite Negative (NEG) Urine Bilirubin Negative (NEG) Urine Urobilinogen Dipstick 1.0 mg/dL (0.2 mg/dL) Urine Leukocyte Esterase Negative (NEG) Urine RBC 0 /HPF (0-2) Urine WBC 0 /HPF (0-4) Urine Squamous Epithelial Cells Occ /LPF Urine Bacteria 0 /HPF (0-FEW) Urine Opiates Screen Neg (NEG) Urine Methadone Screen Neg (NEG) Urine Barbiturates Neg (NEG) Urine Phencyclidine Screen Neg (NEG) Urine Amphetamine/Methamphetamine Neg (NEG) Urine Benzodiazepines Screen Pos (NEG) Urine Cocaine Screen Neg (NEG) Urine Cannabinoids Screen Neg (NEG) Urine Ethyl Alcohol Pos (NEG) Assessment and Plan Assessmemt and Plan Problems Medical Problems: (1) Aggressive behavior Status: Acute (2) Alcohol intoxication Status: Chronic (3) Suicidal ideation Status: Acute Comment Review of Relevant I have reviewed the following items mc (where applicable) has been applied. Labs Laboratory Tests Test 09/16/19 13:48 09/16/19 15:13 White Blood Count 9.2 x10^3/uL (4.0-11.0) Red Blood Count 4.44 x10^6/uL (4.30-5.70) Hemoglobin 14.8 g/dL (13.0-17.5) Hematocrit 44.7 % (39.0-53.0) Mean Corpuscular Volume 101 fL (79-100) Mean Corpuscular Hemoglobin 33 pg (25-35) Mean Corpuscular Hemoglobin Concent 33 g/dL (31-37) Red Cell Distribution Width 15.7 % (11.5-14.5) Platelet Count 98 x10^3/uL (140-400) Neutrophils (%) (Auto) 79 % (31-73) Lymphocytes (%) (Auto) 15 % (24-48) Monocytes (%) (Auto) 4 % (0-9) Eosinophils (%) (Auto) 1 % (0-3) Basophils (%) (Auto) 1 % (0-3) Neutrophils # (Auto) 7.3 x10^3/uL (1.8-7.7) Lymphocytes # (Auto) 1.4 x10^3/uL (1.0-4.8) Monocytes # (Auto) 0.4 x10^3/uL (0.0-1.1) Eosinophils # (Auto) 0.1 x10^3/uL (0.0-0.7) Basophils # (Auto) 0.1 x10^3/uL (0.0-0.2) Prothrombin Time 16.5 SEC (11.7-14.0) Prothromb Time International Ratio 1.4 (0.8-1.1) Activated Partial Thromboplast Time 38 SEC (24-38) Sodium Level 143 mmol/L (136-145) Potassium Level 3.3 mmol/L (3.5-5.1) Chloride Level 109 mmol/L (98-107) Carbon Dioxide Level 23 mmol/L (21-32) Anion Gap 11 (6-14) Blood Urea Nitrogen 3 mg/dL (8-26) Creatinine 0.7 mg/dL (0.7-1.3) Estimated GFR (Cockcroft-Gault) 133.3 BUN/Creatinine Ratio 4 (6-20) Glucose Level 106 mg/dL (70-99) Calcium Level 9.1 mg/dL (8.5-10.1) Total Bilirubin 2.8 mg/dL (0.2-1.0) Aspartate Amino Transf (AST/SGOT) 199 U/L (15-37) Alanine Aminotransferase (ALT/SGPT) 168 U/L (16-63) Alkaline Phosphatase 259 U/L (46-116) Total Protein 8.3 g/dL (6.4-8.2) Albumin 3.6 g/dL (3.4-5.0) Albumin/Globulin Ratio 0.8 (1.0-1.7) Salicylates Level < 2.8 mg/dL (2.8-20.0) Salicylate Last Dose Date Unknown Salicylate Last Dose Time Unknown Acetaminophen Level < 2 mcg/ml (10-30) Acetaminophen Last Dose Date Unknown Acetaminophen Last Dose Time Unknown Ethyl Alcohol Level 289 mg/dL (0-10) Urine Collection Type Unknown Urine Color Yellow Urine Clarity Clear Urine pH 6.5 Urine Specific [place] <=1.005 Urine Protein Negative mg/dL (NEG-TRACE) Urine Glucose (UA) Negative mg/dL (NEG) Urine Ketones (Stick) Negative mg/dL (NEG) Urine Blood Negative (NEG) Urine Nitrite Negative (NEG) Urine Bilirubin Negative (NEG) Urine Urobilinogen Dipstick 1.0 mg/dL (0.2 mg/dL) Urine Leukocyte Esterase Negative (NEG) Urine RBC 0 /HPF (0-2) Urine WBC 0 /HPF (0-4) Urine Squamous Epithelial Cells Occ /LPF Urine Bacteria 0 /HPF (0-FEW) Urine Opiates Screen Neg (NEG) Urine Methadone Screen Neg (NEG) Urine Barbiturates Neg (NEG) Urine Phencyclidine Screen Neg (NEG) Urine Amphetamine/Methamphetamine Neg (NEG) Urine Benzodiazepines Screen Pos (NEG) Urine Cocaine Screen Neg (NEG) Urine Cannabinoids Screen Neg (NEG) Urine Ethyl Alcohol Pos (NEG) Laboratory Tests Test 09/16/19 13:48 09/16/19 15:13 White Blood Count 9.2 x10^3/uL (4.0-11.0) Red Blood Count 4.44 x10^6/uL (4.30-5.70) Hemoglobin 14.8 g/dL (13.0-17.5) Hematocrit 44.7 % (39.0-53.0) Mean Corpuscular Volume 101 fL (79-100) Mean Corpuscular Hemoglobin 33 pg (25-35) Mean Corpuscular Hemoglobin Concent 33 g/dL (31-37) Red Cell Distribution Width 15.7 % (11.5-14.5) Platelet Count 98 x10^3/uL (140-400) Neutrophils (%) (Auto) 79 % (31-73) Lymphocytes (%) (Auto) 15 % (24-48) Monocytes (%) (Auto) 4 % (0-9) Eosinophils (%) (Auto) 1 % (0-3) Basophils (%) (Auto) 1 % (0-3) Neutrophils # (Auto) 7.3 x10^3/uL (1.8-7.7) Lymphocytes # (Auto) 1.4 x10^3/uL (1.0-4.8) Monocytes # (Auto) 0.4 x10^3/uL (0.0-1.1) Eosinophils # (Auto) 0.1 x10^3/uL (0.0-0.7) Basophils # (Auto) 0.1 x10^3/uL (0.0-0.2) Prothrombin Time 16.5 SEC (11.7-14.0) Prothromb Time International Ratio 1.4 (0.8-1.1) Activated Partial Thromboplast Time 38 SEC (24-38) Sodium Level 143 mmol/L (136-145) Potassium Level 3.3 mmol/L (3.5-5.1) Chloride Level 109 mmol/L (98-107) Carbon Dioxide Level 23 mmol/L (21-32) Anion Gap 11 (6-14) Blood Urea Nitrogen 3 mg/dL (8-26) Creatinine 0.7 mg/dL (0.7-1.3) Estimated GFR (Cockcroft-Gault) 133.3 BUN/Creatinine Ratio 4 (6-20) Glucose Level 106 mg/dL (70-99) Calcium Level 9.1 mg/dL (8.5-10.1) Total Bilirubin 2.8 mg/dL (0.2-1.0) Aspartate Amino Transf (AST/SGOT) 199 U/L (15-37) Alanine Aminotransferase (ALT/SGPT) 168 U/L (16-63) Alkaline Phosphatase 259 U/L (46-116) Total Protein 8.3 g/dL (6.4-8.2) Albumin 3.6 g/dL (3.4-5.0) Albumin/Globulin Ratio 0.8 (1.0-1.7) Salicylates Level < 2.8 mg/dL (2.8-20.0) Salicylate Last Dose Date Unknown Salicylate Last Dose Time Unknown Acetaminophen Level < 2 mcg/ml (10-30) Acetaminophen Last Dose Date Unknown Acetaminophen Last Dose Time Unknown Ethyl Alcohol Level 289 mg/dL (0-10) Urine Collection Type Unknown Urine Color Yellow Urine Clarity Clear Urine pH 6.5 Urine Specific [place] <=1.005 Urine Protein Negative mg/dL (NEG-TRACE) Urine Glucose (UA) Negative mg/dL (NEG) Urine Ketones (Stick) Negative mg/dL (NEG) Urine Blood Negative (NEG) Urine Nitrite Negative (NEG) Urine Bilirubin Negative (NEG) Urine Urobilinogen Dipstick 1.0 mg/dL (0.2 mg/dL) Urine Leukocyte Esterase Negative (NEG) Urine RBC 0 /HPF (0-2) Urine WBC 0 /HPF (0-4) Urine Squamous Epithelial Cells Occ /LPF Urine Bacteria 0 /HPF (0-FEW) Urine Opiates Screen Neg (NEG) Urine Methadone Screen Neg (NEG) Urine Barbiturates Neg (NEG) Urine Phencyclidine Screen Neg (NEG) Urine Amphetamine/Methamphetamine Neg (NEG) Urine Benzodiazepines Screen Pos (NEG) Urine Cocaine Screen Neg (NEG) Urine Cannabinoids Screen Neg (NEG) Urine Ethyl Alcohol Pos (NEG) Medications Current Medications Sodium Chloride 1,000 ml @ 1,000 mls/hr 1X ONCE IV Last administered on 09/16/19at 14:14; Start 09/16/19 at 13:45; Stop 09/16/19 at 14:44; Status DC Ketamine HCl (Ketamine) 20 mg 1X STAT IV Last administered on 09/16/19at 14:14; Start 09/16/19 at 13:54; Stop 09/16/19 at 13:57; Status DC Ondansetron HCl (Zofran) 4 mg 1X ONCE IV Last administered on 09/16/19at 14:15; Start 09/16/19 at 14:15; Stop 09/16/19 at 14:16; Status DC Ketamine HCl (Ketamine) 30 mg 1X ONCE IV Last administered on 09/16/19at 15:55; Start 09/16/19 at 15:45; Stop 09/16/19 at 15:49; Status DC Diphenhydramine HCl (Benadryl) 50 mg 1X STAT IVP Last administered on 09/16/19at 17:07; Start 09/16/19 at 16:47; Stop 09/16/19 at 16:49; Status DC Lorazepam (Ativan Inj) 2 mg 1X STAT IVP Last administered on 09/16/19at 17:06; Start 09/16/19 at 16:47; Stop 09/16/19 at 16:49; Status DC Haloperidol Lactate (Haldol Inj) 5 mg 1X ONCE IVP Last administered on 09/16/19at 17:06; Start 09/16/19 at 17:00; Stop 09/16/19 at 17:01; Status DC Sodium Chloride 500 ml @ 500 mls/hr 1X ONCE IV Last administered on 09/16/19at 17:15; Start 09/16/19 at 17:15; Stop 09/16/19 at 18:14; Status DC Haloperidol Lactate (Haldol Inj) 5 mg PRN Q6HRS PRN IVP AGITATION; Start 09/16/19 at 22:15 Morphine Sulfate (Morphine Sulfate) 2 mg PRN Q2HR PRN IV PAIN Last administered on 09/17/19at 08:44; Start 09/16/19 at 22:15 Lorazepam (Ativan Inj) 2 mg PRN Q1HR PRN IV For CIWA 8-14 Last administered on 09/17/19at 08:43; Start 09/16/19 at 22:15 Lorazepam (Ativan Inj) 4 mg PRN Q1HR PRN IV For CIWA 15 or greater; Start 09/16/19 at 22:15 Active Scripts Active Librax Capsule (Chlordiazepoxide/Clidinium Br) 1 Each Capsule 1 Cap PO TID Pantoprazole Sodium (Pantoprazole Sodium) 40 Mg Tablet.dr 40 Mg PO DAILYAC Lactulose 20 Gm/30 Ml Solution 20 Gm PO BID 5 Days Lorazepam 0.5 Mg Tablet 1 Tab PO TID 7 Days Multivitamins (Multivitamin) 1 Each Tablet 1 Tab PO DAILY Folic Acid 1 Mg Tablet 1 Tab PO DAILY Vitamin B-1 (Thiamine Hcl) 100 Mg Tablet 100 Mg PO DAILY 30 Days Feosol (Ferrous Sulfate) 325 Mg Tablet 325 Mg PO DAILYWBKFT 30 Days Reported Gabapentin 600 Mg Tablet 600 Mg PO TID Zyprexa (Olanzapine) 5 Mg Tablet 1 Tab PO QHS Prazosin Hcl 1 Mg Capsule 1 Cap PO QHS Hydroxyzine Hcl 25 Mg Tablet 3 Tab PO TID Vitals/I & O Vital Sign - Last 24 Hours 09/16/19 09/16/19 09/16/19 09/16/19 13:25 13:45 14:02 14:17 Pulse 130 132 136 126 Resp 14 16 18 20 B/P (MAP) 154/93 (113) 147/80 (102) 116/78 (91) 132/90 (104) Pulse Ox 96 96 91 93 O2 Delivery Nasal Cannula Nasal Cannula Nasal Cannula Nasal Cannula O2 Flow Rate 2.0 2.0 2.0 2.0 09/16/19 09/16/19 09/16/19 09/16/19 14:32 14:48 15:02 15:17 Pulse 120 120 114 112 Resp 20 18 20 20 B/P (MAP) 129/79 (96) 151/95 (113) 150/86 (107) 149/83 (105) Pulse Ox 90 98 98 99 O2 Delivery Nasal Cannula Nasal Cannula Nasal Cannula Nasal Cannula O2 Flow Rate 2.0 2.0 2.0 2.0 09/16/19 09/16/19 09/16/19 09/16/19 15:32 16:00 16:17 16:47 Pulse 118 112 112 112 Resp 18 16 16 16 B/P (MAP) 140/77 (98) 145/87 (106) 167/73 (104) 176/89 (118) Pulse Ox 96 96 96 96 O2 Delivery Nasal Cannula Room Air Room Air Room Air O2 Flow Rate 2.0 09/16/19 09/16/19 09/16/19 09/16/19 17:09 17:30 18:00 19:00 Temp 98.4 98.4 Pulse 100 101 96 95 Resp 16 16 16 18 B/P (MAP) 142/73 (96) 127/81 (96) 124/83 (97) 122/79 (93) Pulse Ox 96 94 94 97 O2 Delivery Room Air Nasal Cannula Nasal Cannula Nasal Cannula O2 Flow Rate 2.0 09/16/19 09/16/19 09/16/19 09/16/19 19:00 20:00 22:52 23:30 Temp 98.4 98.2 98.4 98.2 Pulse 95 92 Resp 18 17 B/P (MAP) 122/79 (93) 137/87 (104) Pulse Ox 97 97 O2 Delivery Nasal Cannula Room Air Nasal Cannula Room Air O2 Flow Rate 2.0 2.0 2.0 09/17/19 09/17/19 09/17/19 09/17/19 00:00 02:42 02:56 03:26 Temp 98.1 98.1 Pulse 102 Resp 18 B/P (MAP) 143/86 (105) Pulse Ox 96 O2 Delivery Room Air Nasal Cannula Room Air Room Air 09/17/19 09/17/19 09/17/19 09/17/19 05:21 05:51 07:02 08:44 Temp 98.2 98.2 Pulse 97 Resp 18 B/P (MAP) 131/78 (95) Pulse Ox 95 95 O2 Delivery Room Air Room Air Nasal Cannula Room Air O2 Flow Rate 2.0 2.0 09/17/19 08:59 O2 Delivery Nasal Cannula O2 Flow Rate 2.0 Intake and Output 09/16/19 09/16/19 09/17/19 14:59 22:59 06:59 Intake Total 1800 ml 400 ml Balance 1800 ml 400 ml BENJIE CHANEL MD Sep 17, 2019 09:34
[2019-09-17 10:58] VITALS: BP 138/84
[2019-09-17] MEDS ORDERED: ACETAMINOPHEN 325 MG TABLET. PO PRN (11:15)
[2019-09-17] MEDS: LORazepam 0.5 MG TABLET PO PRN ×2 (11:34→18:40)
[2019-09-17 12:15] LABS: CALCIUM 8.7 mg/dL (8.5-10.1); CREATININE 0.8 mg/dL (0.7-1.3); GFR 114.3; MAGNESIUM 1.7 mg/dL (1.8-2.4); POTASSIUM 3.6 mmol/L (3.5-5.1)
--- NOTE | 2019-09-17 12:55 | NUR ---
Pt. drowsy, c/o pain and "shakiness". Visible tremors noted while pt sleeping. Text page sent to Dr. Pretty.
[2019-09-17] MEDS ORDERED: traMADol 50 MG TABLET PO ONE (13:15)
--- NOTE | 2019-09-17 13:22 | NUR ---
Orders addressed and placed in the computer per Dr. Pretty.
[2019-09-17] MEDS: CYCLOBENZAPRINE 10 MG TABLET. PO PRN ×2 (13:23→19:33)
[2019-09-17] MEDS ORDERED: POTASSIUM CHLORIDE 20 MEQ TABLET.ER. PO ONE (13:30)
--- NOTE | 2019-09-17 14:17 | NUR ---
Text page sent to Dr. Pretty re: pt's medical stability for possible transfer to [facility].
[2019-09-17 15:02] VITALS: BP 144/96
--- NOTE | 2019-09-17 16:22 | NUR ---
Per Evans, with PAT team, pt refused transfer to day to [facility]. Text page sent to Dr. Pretty for notification. PAT team will re-evaluate pt in the am.
[2019-09-17] MEDS ORDERED: MAGNESIUM SULFATE 4GM 100 ML IV ONE (16:30)
--- NOTE | 2019-09-17 18:30 | NUR ---
Dr. Sandoval returned call, notfied of pt's request for pain meds, telephone orders received.
--- NOTE | 2019-09-17 18:38 | NUR ---
Pt. is asking for more pain meds, states he wants what he was on prior to Dr. Pretty changing pain meds this afternoon. States Dr. Hogan had him on Dilaudid last week and that was helping. Pt. stating he has not been able to sleep. Dr. Sandoval prevention specialist, text page sent. Pt. requesting PO Ativan at this time.
[2019-09-17] MEDS ORDERED: KETOROLAC 30 MG/ML VIAL. IVP ONE (18:45)
[2019-09-17 19:00] VITALS: BP 147/88
[2019-09-17] MEDS: LIDOCAINE (700MG/PATCH) PATCH. TD SCH (19:00)
--- NOTE | 2019-09-17 19:48 | NUR ---
Patient is rating pain a 9/10 in his back and abdomen. Patient requested for the RN to call the MD to see if he can get "something better for the pain". Page has been sent to Dr. Sandoval naturopathic oncology provider.
[2019-09-17] MEDS ORDERED: MORPHINE SULFATE 10 MG/ML VIAL. IV ONE (20:15)
[2019-09-17] MEDS ORDERED: ONDANSETRON PF 4 MG/2 ML VIAL. IVP PRN (20:45)
[2019-09-17] MEDS: PATCH REMOVAL. MC SCH (21:00)
[2019-09-17] MEDS ORDERED: ZIPRASIDONE 20 MG CAPSULE PO SCH (21:00)
[2019-09-17] MEDS: DICLOFENAC SODIUM 1% TOPICAL GEL 100GM TUBE. TP SCH (21:10)
[2019-09-17 23:00] VITALS: BP 149/93
[2019-09-18] MEDS ORDERED: MORPHINE SULFATE 10 MG/ML VIAL. IV ONE (02:15)
[2019-09-18 03:00] VITALS: BP 141/91
[2019-09-18 07:00] VITALS: BP 148/86
--- NOTE | 2019-09-18 09:06 | NUR ---
Pt denies S.I. and or H.I. States he does not want to kill himself. He was upset with his mother and only used cutting as a form of punishing himself. Discussed other ways to vent frustrations. Pt requesting pain meds. c/o right upper quadrant pain. radiating to right flank. States it is a sharp stabbing pain. Abd sounds active. Pain to palpation. Prior abd imaging report confirms gallstone 2.3cm as well of cirrhosis of the liver. Will relay info to provider. Will continue to monitor.
--- NOTE | 2019-09-18 09:18 | PDOC ---
PROGRESS NOTES Chief Complaint Chief Complaint Assessment/Plan: EtOH abuse - with acute intoxication on admission Suicide attempt with wrist laceration alcohol FALL, ABRASION LEFT forehead major depression Chronic pain epigastric and RUQ PAIN, radiates to back, worse with meals Hypomagnesemia Hypokalemia LEG pain - poss neuropathy Schizophrenia? Alpha-1 antitrypsin deficiency - MZ mutation - increases his risk of liver disease given his ETOH abuse DJD TRANSAMINITIS, IMPROVING OFF ETOH Hepatic cirrhosis and findings of portal hypertension , C/W END ORGAN INJURY Esophageal varices are numerous and more notable in the interval. ON RECENT CT Gallstone lodged at the gallbladder neck, no gallbladder wall thickening - seen by general surgery previously, no indication for surgery Plan: NEEDS inpatient facility, likely longer term given he was at [facility] and was readmitted here within days of discharge from inpatient psych Wound care clear liquids 1:1 observation. Consult Psychiatric Assessment Team. IV fluids. home meds. CIWA protocol. gi CONSULT hold hepatotoxic drugs inr follow LFT'S UNSAFE DISCHARGE AT THIS TIME decrease iv dilaudid and add oral pain meds POOR PROGNOSIS NEEDS inpatient facility, likely longer term given he was at [facility] and was readmitted here within days of discharge from inpatient psych Wound care d/w RN and PAT TEAM 38 MIN PT EXAM, CHART REVIEW, > 50% OF time spent with exam, chart review, pt care coordination History of Present Illness History of Present Illness Mr Dsouza is a 29-year-old male who has history of schizophrenia?, history of previous suicidal attempts (6 in the past year at [facility]), history of alcohol abuse, DJD, and h/o alpha-1 antitrypsin deficiency. He was brought into the hospital after he appears to have ingested alcohol and attempted a wrist laceration. He presented drunk and he has been trying to hurt himself again, superficial right wrist laceration. Apparently his mother called adult protective services. Overnight c/o severe pain, was given 6mg IV morphine x2 doses, states he still didn't sleep. He is stating he has severe pain, falls asleep easily. He denies a new suicide attempt, notes he did just as he told me he would and went home and started drinking after leaving inpatient psych. He is requesting to have a physician that will listen to him about his pain and renew IV dilaudid or morphine. He notes he finds opioids and alcohol are the only thing that take away his pain, requests meds by name. Not very interested in other pain modalities and does not seem very interested in alcohol cessation at this time. He failed to follow up outpatient after OSH discharge and had started drinking immediately, notes he finished a pint within a "couple days". His recall on alcohol use seems to be much worse than his recall on med administration in the hospital, I have informed him I find this disconcerting. Vitals Vitals Vital Signs Date Time Temp Pulse Resp B/P (MAP) Pulse Ox O2 Delivery O2 Flow Rate FiO2 09/18/19 07:00 98.6 92 17 148/86 (106) 95 Room Air 98.6 09/17/19 19:30 2.0 Physical Exam General: Alert, Oriented X3, Cooperative Heart: Regular rate Lungs: Clear Abdomen: Soft Extremities: No cyanosis Labs LABS Laboratory Tests Test 09/17/19 11:40 Sodium Level 142 mmol/L (136-145) Potassium Level 3.6 mmol/L (3.5-5.1) Chloride Level 106 mmol/L (98-107) Carbon Dioxide Level 29 mmol/L (21-32) Anion Gap 7 (6-14) Blood Urea Nitrogen 2 mg/dL (8-26) Creatinine 0.8 mg/dL (0.7-1.3) Estimated GFR (Cockcroft-Gault) 114.3 Glucose Level 103 mg/dL (70-99) Calcium Level 8.7 mg/dL (8.5-10.1) Magnesium Level 1.7 mg/dL (1.8-2.4) Assessment and Plan Assessmemt and Plan Problems Medical Problems: (1) Aggressive behavior Status: Acute (2) Alcohol intoxication Status: Chronic (3) Suicidal ideation Status: Acute Comment Review of Relevant I have reviewed the following items mc (where applicable) has been applied. Labs Laboratory Tests Test 09/16/19 13:48 09/16/19 15:13 09/17/19 11:40 White Blood Count 9.2 x10^3/uL (4.0-11.0) Red Blood Count 4.44 x10^6/uL (4.30-5.70) Hemoglobin 14.8 g/dL (13.0-17.5) Hematocrit 44.7 % (39.0-53.0) Mean Corpuscular Volume 101 fL (79-100) Mean Corpuscular Hemoglobin 33 pg (25-35) Mean Corpuscular Hemoglobin Concent 33 g/dL (31-37) Red Cell Distribution Width 15.7 % (11.5-14.5) Platelet Count 98 x10^3/uL (140-400) Neutrophils (%) (Auto) 79 % (31-73) Lymphocytes (%) (Auto) 15 % (24-48) Monocytes (%) (Auto) 4 % (0-9) Eosinophils (%) (Auto) 1 % (0-3) Basophils (%) (Auto) 1 % (0-3) Neutrophils # (Auto) 7.3 x10^3/uL (1.8-7.7) Lymphocytes # (Auto) 1.4 x10^3/uL (1.0-4.8) Monocytes # (Auto) 0.4 x10^3/uL (0.0-1.1) Eosinophils # (Auto) 0.1 x10^3/uL (0.0-0.7) Basophils # (Auto) 0.1 x10^3/uL (0.0-0.2) Prothrombin Time 16.5 SEC (11.7-14.0) Prothromb Time International Ratio 1.4 (0.8-1.1) Activated Partial Thromboplast Time 38 SEC (24-38) Sodium Level 143 mmol/L (136-145) 142 mmol/L (136-145) Potassium Level 3.3 mmol/L (3.5-5.1) 3.6 mmol/L (3.5-5.1) Chloride Level 109 mmol/L (98-107) 106 mmol/L (98-107) Carbon Dioxide Level 23 mmol/L (21-32) 29 mmol/L (21-32) Anion Gap 11 (6-14) 7 (6-14) Blood Urea Nitrogen 3 mg/dL (8-26) 2 mg/dL (8-26) Creatinine 0.7 mg/dL (0.7-1.3) 0.8 mg/dL (0.7-1.3) Estimated GFR (Cockcroft-Gault) 133.3 114.3 BUN/Creatinine Ratio 4 (6-20) Glucose Level 106 mg/dL (70-99) 103 mg/dL (70-99) Calcium Level 9.1 mg/dL (8.5-10.1) 8.7 mg/dL (8.5-10.1) Total Bilirubin 2.8 mg/dL (0.2-1.0) Aspartate Amino Transf (AST/SGOT) 199 U/L (15-37) Alanine Aminotransferase (ALT/SGPT) 168 U/L (16-63) Alkaline Phosphatase 259 U/L (46-116) Total Protein 8.3 g/dL (6.4-8.2) Albumin 3.6 g/dL (3.4-5.0) Albumin/Globulin Ratio 0.8 (1.0-1.7) Salicylates Level < 2.8 mg/dL (2.8-20.0) Salicylate Last Dose Date Unknown Salicylate Last Dose Time Unknown Acetaminophen Level < 2 mcg/ml (10-30) Acetaminophen Last Dose Date Unknown Acetaminophen Last Dose Time Unknown Ethyl Alcohol Level 289 mg/dL (0-10) Urine Collection Type Unknown Urine Color Yellow Urine Clarity Clear Urine pH 6.5 Urine Specific [place] <=1.005 Urine Protein Negative mg/dL (NEG-TRACE) Urine Glucose (UA) Negative mg/dL (NEG) Urine Ketones (Stick) Negative mg/dL (NEG) Urine Blood Negative (NEG) Urine Nitrite Negative (NEG) Urine Bilirubin Negative (NEG) Urine Urobilinogen Dipstick 1.0 mg/dL (0.2 mg/dL) Urine Leukocyte Esterase Negative (NEG) Urine RBC 0 /HPF (0-2) Urine WBC 0 /HPF (0-4) Urine Squamous Epithelial Cells Occ /LPF Urine Bacteria 0 /HPF (0-FEW) Urine Opiates Screen Neg (NEG) Urine Methadone Screen Neg (NEG) Urine Barbiturates Neg (NEG) Urine Phencyclidine Screen Neg (NEG) Urine Amphetamine/Methamphetamine Neg (NEG) Urine Benzodiazepines Screen Pos (NEG) Urine Cocaine Screen Neg (NEG) Urine Cannabinoids Screen Neg (NEG) Urine Ethyl Alcohol Pos (NEG) Magnesium Level 1.7 mg/dL (1.8-2.4) Laboratory Tests Test 09/17/19 11:40 Sodium Level 142 mmol/L (136-145) Potassium Level 3.6 mmol/L (3.5-5.1) Chloride Level 106 mmol/L (98-107) Carbon Dioxide Level 29 mmol/L (21-32) Anion Gap 7 (6-14) Blood Urea Nitrogen 2 mg/dL (8-26) Creatinine 0.8 mg/dL (0.7-1.3) Estimated GFR (Cockcroft-Gault) 114.3 Glucose Level 103 mg/dL (70-99) Calcium Level 8.7 mg/dL (8.5-10.1) Magnesium Level 1.7 mg/dL (1.8-2.4) Medications Current Medications Sodium Chloride 1,000 ml @ 1,000 mls/hr 1X ONCE IV Last administered on 09/16/19at 14:14; Start 09/16/19 at 13:45; Stop 09/16/19 at 14:44; Status DC Ketamine HCl (Ketamine) 20 mg 1X STAT IV Last administered on 09/16/19at 14:14; Start 09/16/19 at 13:54; Stop 09/16/19 at 13:57; Status DC Ondansetron HCl (Zofran) 4 mg 1X ONCE IV Last administered on 09/16/19at 14:15; Start 09/16/19 at 14:15; Stop 09/16/19 at 14:16; Status DC Ketamine HCl (Ketamine) 30 mg 1X ONCE IV Last administered on 09/16/19at 15:55; Start 09/16/19 at 15:45; Stop 09/16/19 at 15:49; Status DC Diphenhydramine HCl (Benadryl) 50 mg 1X STAT IVP Last administered on 09/16/19at 17:07; Start 09/16/19 at 16:47; Stop 09/16/19 at 16:49; Status DC Lorazepam (Ativan Inj) 2 mg 1X STAT IVP Last administered on 09/16/19at 17:06; Start 09/16/19 at 16:47; Stop 09/16/19 at 16:49; Status DC Haloperidol Lactate (Haldol Inj) 5 mg 1X ONCE IVP Last administered on 09/16/19at 17:06; Start 09/16/19 at 17:00; Stop 09/16/19 at 17:01; Status DC Sodium Chloride 500 ml @ 500 mls/hr 1X ONCE IV Last administered on 09/16/19at 17:15; Start 09/16/19 at 17:15; Stop 09/16/19 at 18:14; Status DC Haloperidol Lactate (Haldol Inj) 5 mg PRN Q6HRS PRN IVP AGITATION; Start 09/16/19 at 22:15; Stop 09/17/19 at 11:16; Status DC Morphine Sulfate (Morphine Sulfate) 2 mg PRN Q2HR PRN IV PAIN Last administered on 09/17/19at 08:44; Start 09/16/19 at 22:15; Stop 09/17/19 at 11:16; Status DC Lorazepam (Ativan Inj) 2 mg PRN Q1HR PRN IV For CIWA 8-14 Last administered on 09/17/19at 08:43; Start 09/16/19 at 22:15; Stop 09/17/19 at 11:20; Status DC Lorazepam (Ativan Inj) 4 mg PRN Q1HR PRN IV For CIWA 15 or greater; Start 09/16/19 at 22:15; Stop 09/17/19 at 11:16; Status DC Acetaminophen (Tylenol) 650 mg PRN Q6HRS PRN PO MILD PAIN / TEMP Last administered on 09/17/19at 11:34; Start 09/17/19 at 11:15 Ziprasidone (Geodon) 20 mg QHS PO Last administered on 09/17/19at 21:05; Start 09/17/19 at 21:00 Lorazepam (Ativan) 0.5 mg PRN Q6HRS PRN PO ANXIETY / AGITATION Last administered on 09/17/19at 18:40; Start 09/17/19 at 11:30 Cyclobenzaprine HCl (Flexeril) 10 mg PRN Q6HRS PRN PO MUSCLE SPASMS Last administered on 09/17/19at 19:33; Start 09/17/19 at 13:00 Tramadol HCl (Ultram) 50 mg 1X ONCE PO Last administered on 09/17/19at 13:24; Start 09/17/19 at 13:15; Stop 09/17/19 at 13:16; Status DC Potassium Chloride (Klor-Con) 40 meq 1X ONCE PO Last administered on 09/17/19at 13:24; Start 09/17/19 at 13:30; Stop 09/17/19 at 13:31; Status DC Magnesium Sulfate 100 ml @ 25 mls/hr 1X ONCE IV Last administered on 09/17/19at 16:06; Start 09/17/19 at 16:30; Stop 09/17/19 at 20:29; Status DC Ketorolac Tromethamine (Toradol 30mg Vial) 30 mg 1X ONCE IVP Last administered on 09/17/19at 18:54; Start 09/17/19 at 18:45; Stop 09/17/19 at 18:47; Status DC Diclofenac Sodium (Voltaren) 1 yola BID TP Last administered on 09/17/19at 21:10; Start 09/17/19 at 19:00 Lidocaine (Lidoderm) 1 patch DAILY TD ; Start 09/17/19 at 19:00 Miscellaneous (Lidoderm Patch Removal) 1 ea QHS MC ; Start 09/17/19 at 21:00 Morphine Sulfate (Morphine Sulfate) 6 mg 1X ONCE IV Last administered on 09/17/19at 20:07; Start 09/17/19 at 20:15; Stop 09/17/19 at 20:16; Status DC Diphenhydramine HCl (Benadryl Oral Elixir) 25 mg PRN Q6HRS PRN PO ITCHING; Start 09/17/19 at 20:45 Ondansetron HCl (Zofran) 8 mg PRN Q8HRS PRN IVP NAUSEA/VOMITING; Start 09/17/19 at 20:45 Lorazepam (Ativan Inj) 2 mg PRN Q4HRS PRN IVP ANXIETY / AGITATION Last administered on 09/18/19at 01:08; Start 09/17/19 at 20:45 Zolpidem Tartrate (Ambien) 5 mg PRN QHS PRN PO INSOMNIA; Start 09/17/19 at 20:45 Morphine Sulfate (Morphine Sulfate) 6 mg 1X ONCE IV Last administered on 09/18/19at 02:34; Start 09/18/19 at 02:15; Stop 09/18/19 at 02:16; Status DC Active Scripts Active Librax Capsule (Chlordiazepoxide/Clidinium Br) 1 Each Capsule 1 Cap PO TID Pantoprazole Sodium (Pantoprazole Sodium) 40 Mg Tablet.dr 40 Mg PO DAILYAC Lactulose 20 Gm/30 Ml Solution 20 Gm PO BID 5 Days Lorazepam 0.5 Mg Tablet 1 Tab PO TID 7 Days Multivitamins (Multivitamin) 1 Each Tablet 1 Tab PO DAILY Folic Acid 1 Mg Tablet 1 Tab PO DAILY Vitamin B-1 (Thiamine Hcl) 100 Mg Tablet 100 Mg PO DAILY 30 Days Feosol (Ferrous Sulfate) 325 Mg Tablet 325 Mg PO [id number] 30 Days Reported Gabapentin 600 Mg Tablet 600 Mg PO TID Zyprexa (Olanzapine) 5 Mg Tablet 1 Tab PO QHS Prazosin Hcl 1 Mg Capsule 1 Cap PO QHS Hydroxyzine Hcl 25 Mg Tablet 3 Tab PO TID Vitals/I & O Vital Sign - Last 24 Hours 09/17/19 09/17/19 09/17/19 09/17/19 10:58 13:24 15:02 15:06 Temp 99.1 98.2 99.1 98.2 Pulse 113 105 Resp 24 18 B/P (MAP) 138/84 (102) 144/96 (112) Pulse Ox 95 94 O2 Delivery Nasal Cannula Nasal Cannula Nasal Cannula Nasal Cannula O2 Flow Rate 2.0 2.0 2.0 09/17/19 09/17/19 09/17/19 09/17/19 19:00 19:30 20:07 20:37 Temp 98.2 98.2 Pulse 87 Resp 18 B/P (MAP) 147/88 (107) Pulse Ox 93 O2 Delivery Room Air Nasal Cannula Room Air Nasal Cannula O2 Flow Rate 2.0 09/17/19 09/18/19 09/18/19 09/18/19 23:00 02:34 03:00 03:04 Temp 98.2 98.0 98.2 98.0 Pulse 93 88 Resp 18 18 B/P (MAP) 149/93 (111) 141/91 (108) Pulse Ox 96 94 O2 Delivery Room Air Room Air Room Air Room Air 09/18/19 07:00 Temp 98.6 98.6 Pulse 92 Resp 17 B/P (MAP) 148/86 (106) Pulse Ox 95 O2 Delivery Room Air Intake and Output 09/17/19 09/17/19 09/18/19 14:59 22:59 06:59 Intake Total 100 ml 870 ml 100 ml Balance 100 ml 870 ml 100 ml BENJIE CHANEL MD Sep 18, 2019 09:18
[2019-09-18] MEDS: LIDOCAINE (700MG/PATCH) PATCH. TD SCH ×2 (09:30→09:58)
[2019-09-18] MEDS: CYCLOBENZAPRINE 10 MG TABLET. PO PRN ×2 (09:59→20:37)
[2019-09-18] MEDS: ZIPRASIDONE 20 MG CAPSULE PO SCH ×2 (09:59→20:37)
[2019-09-18] MEDS: diphenhydrAMINE ORAL ELIXIR 12.5 MG/5 ML ML PO PRN ×2 (09:59→20:38)
[2019-09-18] MEDS: HYDROcodone/APAP 5/325MG 1 TAB TABLET PO PRN (10:00)
[2019-09-18] MEDS: DICLOFENAC SODIUM 1% TOPICAL GEL 100GM TUBE. TP SCH ×3 (10:09→20:40)
[2019-09-18 11:00] VITALS: BP 138/82
[2019-09-18 14:22] LABS: BASO % 0 % (0-3); EOS # 0.1 x10^3/uL (0.0-0.7); EOS % 3 % (0-3); HEMATOCRIT 38.7 % (39.0-53.0); LYMPH # 0.7 x10^3/uL (1.0-4.8); LYMPH % 21 % (24-48); MEAN CORPUSCULAR HEMOGLOBIN 34 pg (25-35); MEAN CORPUSCULAR HGB CONC 34 g/dL (31-37); MEAN CORPUSCULAR VOLUME 100 fL (79-100); MONO # 0.2 x10^3/uL (0.0-1.1); MONO % 6 % (0-9); NEUT # 2.3 x10^3/uL (1.8-7.7); NEUT % 70 % (31-73); PLATELET COUNT 53 x10^3/uL (140-400); RED BLOOD COUNT 3.87 x10^6/uL (4.30-5.70); RED CELL DISTRIBUTION WIDTH 15.2 % (11.5-14.5); WHITE BLOOD COUNT 3.3 x10^3/uL (4.0-11.0)
[2019-09-18] MEDS: LORazepam 0.5 MG TABLET PO PRN ×2 (14:22→20:44)
--- NOTE | 2019-09-18 14:33 | NUR ---
Pt is sitting up on his bed, rocking back and forth, repeatedly asking for pain meds. Pt is saying, "I need pain meds, pain med, pain meds, pain meds". Discussed behaviors of addiction, obsessive compulsiveness, "crying pinedo behavior". Pt states he's not addicted to pain meds because he can get them on the street at any time. Pt states he is going to start screaming to prove how much pain he is in. Discussed with pt, that sort of behavior is not tolerated in an acute hospital setting. States, "well if you just give it to me then I'll stop bitching about it". Discussed w/ pt alernate ways of pain control. Unwilling to try any other form of pain relief. Will continue to monitor.
[2019-09-18 14:39] LABS: ALBUMIN 3.1 g/dL (3.4-5.0); ALBUMIN/GLOBULIN RATIO 0.8 (1.0-1.7); CALCIUM 8.6 mg/dL (8.5-10.1); CREATININE 0.7 mg/dL (0.7-1.3); GFR 133.3; MAGNESIUM 1.9 mg/dL (1.8-2.4); POTASSIUM 3.6 mmol/L (3.5-5.1); TOTAL BILIRUBIN 2.9 mg/dL (0.2-1.0); TOTAL PROTEIN 7.2 g/dL (6.4-8.2)
[2019-09-18 15:00] VITALS: BP 129/93
[2019-09-18 19:00] VITALS: BP 148/91
[2019-09-18] MEDS: PATCH REMOVAL. MC SCH ×2 (20:38→21:00)
[2019-09-18] MEDS: ZOLPIDEM 5 MG TABLET. PO PRN (20:44)
[2019-09-18 23:00] VITALS: BP 132/74
[2019-09-19 03:00] VITALS: BP 125/71
[2019-09-19 07:00] VITALS: BP 138/88
[2019-09-19] MEDS: LIDOCAINE (700MG/PATCH) PATCH. TD SCH ×2 (10:23→10:28)
[2019-09-19] MEDS: ZIPRASIDONE 20 MG CAPSULE PO SCH ×2 (10:26→19:10)
[2019-09-19] MEDS: DICLOFENAC SODIUM 1% TOPICAL GEL 100GM TUBE. TP SCH ×2 (10:26→19:15)
[2019-09-19 11:00] VITALS: BP 134/94
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
[2019-09-19] MEDS ORDERED: MAG HYDROX/ALUMINUM HYD/SIMETH 30 ML ORAL.SUSP PO PRN (13:45)
[2019-09-19 15:00] VITALS: BP 132/77
[2019-09-19] MEDS: LORazepam 0.5 MG TABLET PO PRN (17:19)
[2019-09-19] MEDS: HYDROcodone/APAP 5/325MG 1 TAB TABLET PO PRN (17:19)
[2019-09-19 19:00] VITALS: BP 142/68
[2019-09-19] MEDS: CYCLOBENZAPRINE 10 MG TABLET. PO PRN (19:10)
[2019-09-19] MEDS: PATCH REMOVAL. MC SCH (19:15)
--- NOTE | 2019-09-19 19:24 | NUR ---
patient rocking back and forth. Threatening to go [facility] so the can get alcohol for his pain. Having rude behavior. PRN IV Ativan given. PRN flexeril given for generalized muscle pain. Very agitated, yells out loudly he wants more pain meds. Pt had recieved PRN pain med at 1917.
[2019-09-19 23:00] VITALS: BP 158/75
[2019-09-19] MEDS: ZOLPIDEM 5 MG TABLET. PO PRN (23:05)
[2019-09-20 03:00] VITALS: BP 158/76
[2019-09-20 05:33] LABS: BASO % 1 % (0-3); EOS # 0.1 x10^3/uL (0.0-0.7); EOS % 3 % (0-3); LYMPH # 0.7 x10^3/uL (1.0-4.8); LYMPH % 22 % (24-48); MEAN CORPUSCULAR HEMOGLOBIN 33 pg (25-35); MEAN CORPUSCULAR HGB CONC 33 g/dL (31-37); MEAN CORPUSCULAR VOLUME 99 fL (79-100); MONO # 0.3 x10^3/uL (0.0-1.1); MONO % 10 % (0-9); NEUT # 1.9 x10^3/uL (1.8-7.7); NEUT % 64 % (31-73); PLATELET COUNT 58 x10^3/uL (140-400); RED BLOOD COUNT 3.92 x10^6/uL (4.30-5.70); RED CELL DISTRIBUTION WIDTH 15.3 % (11.5-14.5)
[2019-09-20 06:02] LABS: ALBUMIN 2.9 g/dL (3.4-5.0); ALBUMIN/GLOBULIN RATIO 0.7 (1.0-1.7); CALCIUM 8.4 mg/dL (8.5-10.1); CREATININE 0.6 mg/dL (0.7-1.3); GFR 159.3; POTASSIUM 3.8 mmol/L (3.5-5.1); TOTAL BILIRUBIN 2.6 mg/dL (0.2-1.0)
--- NOTE | 2019-09-20 07:03 | NUR ---
Have received change of shift report, and assumed 1 to 1 care of this patient. Patient appears to be sleeping restfully, patient on right side, respirations deep and regular. No extremity movement noted at this time.
[2019-09-20 08:50] VITALS: BP 146/96
[2019-09-20] MEDS: ZIPRASIDONE 20 MG CAPSULE PO SCH ×2 (08:51→20:41)
[2019-09-20] MEDS: CYCLOBENZAPRINE 10 MG TABLET. PO PRN ×2 (08:52→16:33)
[2019-09-20] MEDS: LIDOCAINE (700MG/PATCH) PATCH. TD SCH (09:00)
[2019-09-20] MEDS: DICLOFENAC SODIUM 1% TOPICAL GEL 100GM TUBE. TP SCH ×2 (09:00→20:45)
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
--- NOTE | 2019-09-20 11:03 | NUR ---
SW following pt. Evans will see pt today.
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
[2019-09-20 11:42] VITALS: BP 145/93
[2019-09-20] MEDS: LORazepam 0.5 MG TABLET PO PRN ×2 (12:01→20:41)
[2019-09-20] MEDS ORDERED: HYDROmorphone 2 MG/ML VIAL IV ONE (13:15)
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
[2019-09-20] MEDS ORDERED: PHYTONADIONE 10 MG/ML ORAL SOLUTION. PO ONE (13:30)
--- NOTE | 2019-09-20 14:47 | RAD ---
CT of the abdomen and pelvis without contrast 09/20/2019 INDICATION: Bilateral flank pain COMPARISON STUDY: CT of the abdomen and pelvis August 17, 2019 TECHNIQUE: Multidetector CT imaging of the abdomen and pelvis was performed without the administration of IV contrast. FINDINGS: Limited visualization of the lung bases demonstrate groundglass and slightly more nodular opacities in the left lower lobe and inferior left upper lobe. This appears to be new from prior exam. Findings most likely reflects an infectious etiology such as pneumonia. Correlate with clinical findings. Given somewhat nodular appearance consider post therapeutic follow-up CT chest to ensure resolution. Hepatosplenomegaly with other sequela of portal hypertension including esophageal varices again noted. Cholelithiasis is similar to comparison study. The gallbladder is less hydronephrotic in the interim. The adrenal glands are unremarkable. Pancreas is grossly unremarkable. Kidneys are grossly unremarkable without evidence of nephrolithiasis, hydronephrosis, or obstructive uropathy. The bladder is grossly unremarkable. Colonic thickening has essentially resolved in the interim. Stranding in the right upper quadrant mesentery likely relating to scant ascites.. No pneumoperitoneum is identified. No evidence of bowel obstruction is seen. No acute osseous changes are identified. IMPRESSION: 1. Left lower lobe possibly upper lobe opacities most suggestive of pneumonia.Given somewhat nodular appearance consider post therapeutic follow-up CT chest to ensure resolution. 2. Hepatosplenomegaly with portal hypertension. Scant ascites 3. Cholelithiasis CT DOSING PQRS STATEMENT: One or more of the following individualized dose reduction techniques were utilized for this examination: 1. Automated exposure control 2. Adjustment of the mA and/or kV according to patient size 3. Use of iterative reconstruction technique Electronically signed by: Pradip Mccarty MD (09/20/2019 2:44 PM) [id number]
--- NOTE | 2019-09-20 15:30 | NUR ---
Dr Renee informed of CT report, orders received. Patient not to be discharged today. drug department worker informed.
--- NOTE | 2019-09-20 16:00 | NUR ---
Patient, on multiple occasions related that he would like to have his gallbladder taken out this admission, that he doesn't think he will have rides to appointments. Has also verbalized that he wants to have another EGD, and thinks he needs to have a colonoscopy. Patient stated that "[facility] said I should have an EGD every few months" "They also said I will need a colonoscopy" Related that he had received prep of colonoscopy while at , "But I had a panic attack, and they cancelled the colonsocopy and just did the EGD."
--- NOTE | 2019-09-20 16:18 | PDOC2 ---
GI CONSULT Reason For Consult: Abd pain HPI: HPI: 29 y/o male who we've seen many many times recently. Admitted again last week - intoxicated w/ suicidal ideation/self-harm. We are asked to see him today for abd pain. H/o alcoholic cirrhosis w/ +AAT MZ phenotype, cholelithiasis, and chronic pain. As in the past, repeatedly asks for EGD - this time also wants a colonoscopy. Says he "vomited a toilet full of blood" and his stools are black. In the past, staff has observed him coughing up brown mucous when he reports bleeding. 1:1 nurse today says she has seen some "blood in tissues." He can't tell me when he last vomited or stooled. EGD on 07/01/19 showed Grade II varices w/ scarring probably from prior banding in distal third of esophagus, two 1-2mm linear ulcerations w/ friability in distal esophagus (?M-W), irregular SQ junction w/ GERD, no convincing site or major bleeding, diffuse portal hypertensive gastropathy, no gastric varices, no ulcer, normal duodenum. PMH: PMH: per HPI FH: Family History: Other (AAT - father, GERD/Brown's - mother) Social History: ALCOHOL: heavy ROS: Per HPI. Vitals: Vitals: Vital Signs Date Time Temp Pulse Resp B/P (MAP) Pulse Ox O2 Delivery O2 Flow Rate FiO2 09/20/19 13:31 20 09/20/19 11:42 98.9 89 145/93 (110) 97 Room Air 98.9 09/19/19 20:11 2.0 Labs: Labs: Laboratory Tests Test 09/20/19 05:09 09/20/19 14:15 White Blood Count 3.0 x10^3/uL (4.0-11.0) Red Blood Count 3.92 x10^6/uL (4.30-5.70) Hemoglobin 13.0 g/dL (13.0-17.5) Hematocrit 39.0 % (39.0-53.0) Mean Corpuscular Volume 99 fL (79-100) Mean Corpuscular Hemoglobin 33 pg (25-35) Mean Corpuscular Hemoglobin Concent 33 g/dL (31-37) Red Cell Distribution Width 15.3 % (11.5-14.5) Platelet Count 58 x10^3/uL (140-400) Neutrophils (%) (Auto) 64 % (31-73) Lymphocytes (%) (Auto) 22 % (24-48) Monocytes (%) (Auto) 10 % (0-9) Eosinophils (%) (Auto) 3 % (0-3) Basophils (%) (Auto) 1 % (0-3) Neutrophils # (Auto) 1.9 x10^3/uL (1.8-7.7) Lymphocytes # (Auto) 0.7 x10^3/uL (1.0-4.8) Monocytes # (Auto) 0.3 x10^3/uL (0.0-1.1) Eosinophils # (Auto) 0.1 x10^3/uL (0.0-0.7) Basophils # (Auto) 0.0 x10^3/uL (0.0-0.2) Sodium Level 139 mmol/L (136-145) Potassium Level 3.8 mmol/L (3.5-5.1) Chloride Level 105 mmol/L (98-107) Carbon Dioxide Level 26 mmol/L (21-32) Anion Gap 8 (6-14) Blood Urea Nitrogen 7 mg/dL (8-26) Creatinine 0.6 mg/dL (0.7-1.3) Estimated GFR (Cockcroft-Gault) 159.3 BUN/Creatinine Ratio 12 (6-20) Glucose Level 92 mg/dL (70-99) Calcium Level 8.4 mg/dL (8.5-10.1) Total Bilirubin 2.6 mg/dL (0.2-1.0) Aspartate Amino Transf (AST/SGOT) 81 U/L (15-37) Alanine Aminotransferase (ALT/SGPT) 69 U/L (16-63) Alkaline Phosphatase 229 U/L (46-116) Total Protein 7.0 g/dL (6.4-8.2) Albumin 2.9 g/dL (3.4-5.0) Albumin/Globulin Ratio 0.7 (1.0-1.7) Erythrocyte Sedimentation Rate 45 (0-15) Gamma Glutamyl Transpeptidase 794 U/L (10-85) Allergies: Coded Allergies: No Known Drug Allergies (Unverified , 06/25/17) Medications: Current Medications Medications (Trade) Dose Ordered Sig/Renee Route PRN Reason Start Time Stop Time Status Last Admin Dose Admin Hydromorphone HCl (Dilaudid) 1 mg 1X ONCE IV 09/20/19 13:15 09/20/19 13:16 DC 09/20/19 13:31 Phytonadione (Mephyton Oral Soln) 5 mg 1X ONCE PO 09/20/19 13:30 09/20/19 13:39 DC 09/20/19 14:37 Imaging: Imaging: CT A/P IMPRESSION: 1. Left lower lobe possibly upper lobe opacities most suggestive of pneumonia.Given somewhat nodular appearance consider post therapeutic follow-up CT chest to ensure resolution. 2. Hepatosplenomegaly with portal hypertension. Scant ascites 3. Cholelithiasis PE: GEN: NAD - sitting up in bed HEENT: Atraumatic, PERRL LUNGS: CTAB HEART: RRR ABD: S/ND/NT - NO ABDOMINAL PAIN DURING MY EXAM EXTREMITY: No edema SKIN: wrist bandaged NEURO/PSYCH: A & O 3 A/P: A/P: Suicide attempt Cirrhosis - alcohol, AAT - leukopenia, thrombocytopenia, chronically elevated LFTs Chronic pain Cholelithiasis - surgery has seen in the past, recommended elective cholecystectomy when able to stop drinking -- Frequent admissions, same issues. Hgb 13, BUN 7 - no signs of meaningful bleed just like last several encounters. No plans for 'scopes, okay to eat per GI. Add PPI. JANET STEWART Sep 20, 2019 16:18
[2019-09-20 16:40] VITALS: BP 141/95
[2019-09-20] MEDS: PIPERACILLIN/TAZOBACTAM 3.375 GM in IV NORMAL SALINE 50ML 50 ML IV SCH (17:05)
--- NOTE | 2019-09-20 17:15 | NUR ---
When questioned patient regarding about emotional status, and how he was coping, patient stated "If I was being discharged to a homeless longterm right now, I would be feeling suicidal". Patient has spoke with friend Selene Jenniffer (was allowed use of phone brought up by brother to try to make arrangements for place to stay after discharge.), who per patient will let him stay with her, and was informeed by patient that he may be discharged tomorrow.
[2019-09-20] MEDS: PANTOPRAZOLE 40 MG TABLET.DR. PO SCH (19:02)
[2019-09-20 19:36] VITALS: BP 143/91
[2019-09-20] MEDS: ZOLPIDEM 5 MG TABLET. PO PRN (20:41)
[2019-09-20] MEDS: HYDROcodone/APAP 5/325MG 1 TAB TABLET PO PRN (20:43)
[2019-09-20] MEDS: PATCH REMOVAL. MC SCH (20:44)
[2019-09-20 23:44] VITALS: BP 139/88
[2019-09-21] MEDS: PIPERACILLIN/TAZOBACTAM 3.375 GM in IV NORMAL SALINE 50ML 50 ML IV SCH ×2 (00:01→06:44)
[2019-09-21] MEDS ORDERED: HYDROmorphone 2 MG/ML VIAL IV ONE (02:00)
[2019-09-21] MEDS: CYCLOBENZAPRINE 10 MG TABLET. PO PRN ×2 (02:04→11:03)
[2019-09-21 03:27] VITALS: BP 135/84
[2019-09-21 04:45] LABS: BASO % 1 % (0-3); EOS # 0.1 x10^3/uL (0.0-0.7); EOS % 4 % (0-3); HEMATOCRIT 40.8 % (39.0-53.0); HEMOGLOBIN 13.6 g/dL (13.0-17.5); LYMPH # 0.9 x10^3/uL (1.0-4.8); LYMPH % 25 % (24-48); MEAN CORPUSCULAR HEMOGLOBIN 33 pg (25-35); MEAN CORPUSCULAR HGB CONC 33 g/dL (31-37); MEAN CORPUSCULAR VOLUME 100 fL (79-100); MONO # 0.4 x10^3/uL (0.0-1.1); MONO % 11 % (0-9); NEUT # 2.1 x10^3/uL (1.8-7.7); NEUT % 60 % (31-73); PLATELET COUNT 70 x10^3/uL (140-400); RED BLOOD COUNT 4.08 x10^6/uL (4.30-5.70); RED CELL DISTRIBUTION WIDTH 15.3 % (11.5-14.5); WHITE BLOOD COUNT 3.5 x10^3/uL (4.0-11.0)
[2019-09-21 05:07] LABS: ALBUMIN 3.2 g/dL (3.4-5.0); ALBUMIN/GLOBULIN RATIO 0.8 (1.0-1.7); CALCIUM 8.7 mg/dL (8.5-10.1); CREATININE 0.8 mg/dL (0.7-1.3); GFR 114.3; POTASSIUM 3.3 mmol/L (3.5-5.1); TOTAL BILIRUBIN 2.8 mg/dL (0.2-1.0); TOTAL PROTEIN 7.3 g/dL (6.4-8.2)
[2019-09-21] MEDS: HYDROcodone/APAP 5/325MG 1 TAB TABLET PO PRN (06:45)
[2019-09-21 07:15] VITALS: BP 107/57
[2019-09-21] MEDS: PANTOPRAZOLE 40 MG TABLET.DR. PO SCH (07:41)
--- NOTE | 2019-09-21 08:57 | PDOC2 ---
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 WHEEL MOLDER 09/21/19 0857: CONSULT Date of Consult Date of Consult DATE: 09/21/19 TIME: 08:52 Reason for Consult Reason for Consult: RUQ pain Referring Physician Referring Physician: Dr Renee Identification/Chief Complaint Chief Complaint intoxication Source Source: Chart review, Patient History of Present Illness Reason for Visit: Admitted multiple times, multiple chronic issues Recently seen by Dr Yao for cholelithiasis , recommended lap analilia once sustained from alcohol use Returns intoxicated, suicidal ideation Reports RUQ pain, + N/V, symptoms are intermittent --asking about surgery tomorrow ?hematemesis per pt Past Medical History Cardiovascular: HTN GI: GI bleed, Gastritis, Other Hepatobiliary: Cirrhosis, Other Psych: Addictions, Depression, Schizophrenia, Other Past Surgical History Past Surgical History: No pertinent history Family History Family History: Other Social History ALCOHOL: heavy Lives: Alone Current Problem List Problem List Problems Medical Problems: (1) Aggressive behavior Status: Acute (2) Alcohol intoxication Status: Chronic (3) Suicidal ideation Status: Acute Current Medications Current Medications Current Medications Sodium Chloride 1,000 ml @ 1,000 mls/hr 1X ONCE IV Last administered on 09/16/19at 14:14; Start 09/16/19 at 13:45; Stop 09/16/19 at 14:44; Status DC Ketamine HCl (Ketamine) 20 mg 1X STAT IV Last administered on 09/16/19at 14:14; Start 09/16/19 at 13:54; Stop 09/16/19 at 13:57; Status DC Ondansetron HCl (Zofran) 4 mg 1X ONCE IV Last administered on 09/16/19at 14:15; Start 09/16/19 at 14:15; Stop 09/16/19 at 14:16; Status DC Ketamine HCl (Ketamine) 30 mg 1X ONCE IV Last administered on 09/16/19at 15:55; Start 09/16/19 at 15:45; Stop 09/16/19 at 15:49; Status DC Diphenhydramine HCl (Benadryl) 50 mg 1X STAT IVP Last administered on 09/16/19at 17:07; Start 09/16/19 at 16:47; Stop 09/16/19 at 16:49; Status DC Lorazepam (Ativan Inj) 2 mg 1X STAT IVP Last administered on 09/16/19at 17:06; Start 09/16/19 at 16:47; Stop 09/16/19 at 16:49; Status DC Haloperidol Lactate (Haldol Inj) 5 mg 1X ONCE IVP Last administered on 09/16/19at 17:06; Start 09/16/19 at 17:00; Stop 09/16/19 at 17:01; Status DC Sodium Chloride 500 ml @ 500 mls/hr 1X ONCE IV Last administered on 09/16/19at 17:15; Start 09/16/19 at 17:15; Stop 09/16/19 at 18:14; Status DC Haloperidol Lactate (Haldol Inj) 5 mg PRN Q6HRS PRN IVP AGITATION; Start 09/16/19 at 22:15; Stop 09/17/19 at 11:16; Status DC Morphine Sulfate (Morphine Sulfate) 2 mg PRN Q2HR PRN IV PAIN Last administered on 09/17/19at 08:44; Start 09/16/19 at 22:15; Stop 09/17/19 at 11:16; Status DC Lorazepam (Ativan Inj) 2 mg PRN Q1HR PRN IV For CIWA 8-14 Last administered on 09/17/19at 08:43; Start 09/16/19 at 22:15; Stop 09/17/19 at 11:20; Status DC Lorazepam (Ativan Inj) 4 mg PRN Q1HR PRN IV For CIWA 15 or greater; Start 09/16/19 at 22:15; Stop 09/17/19 at 11:16; Status DC Acetaminophen (Tylenol) 650 mg PRN Q6HRS PRN PO MILD PAIN / TEMP Last administered on 09/17/19at 11:34; Start 09/17/19 at 11:15 Ziprasidone (Geodon) 20 mg QHS PO Last administered on 09/17/19at 21:05; Start 09/17/19 at 21:00; Stop 09/18/19 at 09:18; Status DC Lorazepam (Ativan) 0.5 mg PRN Q6HRS PRN PO ANXIETY / AGITATION Last administered on 09/20/19at 20:41; Start 09/17/19 at 11:30 Cyclobenzaprine HCl (Flexeril) 10 mg PRN Q6HRS PRN PO MUSCLE SPASMS Last administered on 09/21/19 02:04; Start 09/17/19 at 13:00 Tramadol HCl (Ultram) 50 mg 1X ONCE PO Last administered on 09/17/19 13:24; Start 09/17/19 at 13:15; Stop 09/17/19 at 13:16; Status DC Potassium Chloride (Klor-Con) 40 meq 1X ONCE PO Last administered on 09/17/19 13:24; Start 09/17/19 at 13:30; Stop 09/17/19 at 13:31; Status DC Magnesium Sulfate 100 ml @ 25 mls/hr 1X ONCE IV Last administered on 09/17/19 16:06; Start 09/17/19 at 16:30; Stop 09/17/19 at 20:29; Status DC Ketorolac Tromethamine (Toradol 30mg Vial) 30 mg 1X ONCE IVP Last administered on 09/17/19 18:54; Start 09/17/19 at 18:45; Stop 09/17/19 at 18:47; Status DC Diclofenac Sodium (Voltaren) 1 yola BID TP Last administered on 09/19/19at 19:15; Start 09/17/19 at 19:00 Lidocaine (Lidoderm) 1 patch DAILY TD Last administered on 09/18/19 09:58; Start 09/17/19 at 19:00; Stop 09/19/19 at 13:17; Status DC Miscellaneous (Lidoderm Patch Removal) 1 ea [facility] ; Start 09/17/19 at 21:00; Stop 09/19/19 at 13:17; Status DC Morphine Sulfate (Morphine Sulfate) 6 mg 1X ONCE IV Last administered on 09/17/19at 20:07; Start 09/17/19 at 20:15; Stop 09/17/19 at 20:16; Status DC Diphenhydramine HCl (Benadryl Oral Elixir) 25 mg PRN Q6HRS PRN PO ITCHING Last administered on 09/18/19 20:38; Start 09/17/19 at 20:45 Ondansetron HCl (Zofran) 8 mg PRN Q8HRS PRN IVP NAUSEA/VOMITING Last administered on 09/18/19 14:23; Start 09/17/19 at 20:45 Lorazepam (Ativan Inj) 2 mg PRN Q4HRS PRN IVP ANXIETY / AGITATION Last administered on 09/21/19 06:45; Start 09/17/19 at 20:45 Zolpidem Tartrate (Ambien) 5 mg PRN QHS PRN PO INSOMNIA Last administered on 09/20/19 20:41; Start 09/17/19 at 20:45 Morphine Sulfate (Morphine Sulfate) 6 mg 1X ONCE IV Last administered on 09/18/19 02:34; Start 09/18/19 at 02:15; Stop 09/18/19 at 02:16; Status DC Ziprasidone (Geodon) 20 mg BID PO Last administered on 09/20/19 20:41; Start 09/18/19 at 09:30 Lidocaine (Lidoderm) 1 patch DAILY TD ; Start 09/18/19 at 09:30 Miscellaneous (Lidoderm Patch Removal) 1 ea QHS [facility] Last administered on 09/19/19 19:15; Start 09/18/19 at 21:00 Acetaminophen/ Hydrocodone Bitart (Lortab 5/325) 1 tab PRN DAILY PRN PO PAIN MODERATE TO SEVERE Last administered on 09/21/19 06:45; Start 09/18/19 at 09:30 Al Hydroxide/Mg Hydroxide (Mylanta Plus Xs) 30 ml PRN Q2HR PRN PO HEARTBURN / GAS Last administered on 09/19/19 14:07; Start 09/19/19 at 13:45 Hydromorphone HCl (Dilaudid) 1 mg 1X ONCE IV Last administered on 09/20/19 13:31; Start 09/20/19 at 13:15; Stop 09/20/19 at 13:16; Status DC Phytonadione (Mephyton Oral Soln) 5 mg 1X ONCE PO Last administered on 14:37; Start 09/20/19 at 13:30; Stop 09/20/19 at 13:39; Status DC Piperacillin Sod/ Tazobactam Sod 3.375 gm/Sodium Chloride 50 ml @ 100 mls/hr Q6HRS IV Last administered on 09/21/19 06:44; Start 09/20/19 at 17:00 Pantoprazole Sodium (Protonix) 40 mg DAILYAC PO Last administered on 10/22/19at 07:41; Start 09/20/19 at 16:30 Hydromorphone HCl (Dilaudid) 1 mg 1X ONCE IV Last administered on 09/21/19at 02:05; Start 09/21/19 at 02:00; Stop 09/21/19 at 02:01; Status DC Active Scripts Active Librax Capsule (Chlordiazepoxide/Clidinium Br) 1 Each Capsule 1 Cap PO TID Pantoprazole Sodium (Pantoprazole Sodium) 40 Mg Tablet.dr 40 Mg PO DAILYAC Lactulose 20 Gm/30 Ml Solution 20 Gm PO BID 5 Days Lorazepam 0.5 Mg Tablet 1 Tab PO TID 7 Days Multivitamins (Multivitamin) 1 Each Tablet 1 Tab PO DAILY Folic Acid 1 Mg Tablet 1 Tab PO DAILY Vitamin B-1 (Thiamine Hcl) 100 Mg Tablet 100 Mg PO DAILY 30 Days Feosol (Ferrous Sulfate) 325 Mg Tablet 325 Mg PO DAILYWBKFT 30 Days Reported Gabapentin 600 Mg Tablet 600 Mg PO TID Zyprexa (Olanzapine) 5 Mg Tablet 1 Tab PO QHS Prazosin Hcl 1 Mg Capsule 1 Cap PO QHS Hydroxyzine Hcl 25 Mg Tablet 3 Tab PO TID Allergies Allergies: Coded Allergies: No Known Drug Allergies (Unverified , 06/25/17) ROS General: No: Chills, Other (fevers ) PSYCHOLOGICAL ROS: YES: Anxiety, Depression, Suicidal ideation HEENT: No: Heacaches, Sore Throat Hematological and Lymphatic: No: Bleeding Problems, Blood Clots Respiratory: No: Cough, Shortness of breath Cardiovascular: No Chest Pain, No Palpitations Gastrointestinal: Yes Other (see hpi) Genitourinary: No Dysuria, No Hematuria Neurological: No Confusion, No Numbness/Tingling Physical Exam General: Alert, Oriented X3, Cooperative, No acute distress HEENT: Atraumatic, Mucous membr. moist/pink Lungs: Clear to auscultation Heart: Regular rate, Normal S1, Normal S2 Abdomen: Soft, Other (nontender on exam) Extremities: No clubbing, No cyanosis Skin: No rashes, No breakdown Neuro: Normal gait, Normal speech Psych/Mental Status: Mental status NL, Mood NL MUSCULOSKELETAL: No deformity, No swelling Vitals VITALS Vital Signs Date Time Temp Pulse Resp B/P (MAP) Pulse Ox O2 Delivery O2 Flow Rate FiO2 09/21/19 08:00 Room Air 09/21/19 07:15 98.7 71 20 107/57 (74) 96 98.7 09/20/19 20:00 2.0 Labs Labs Laboratory Tests Test 09/20/19 05:09 09/20/19 14:15 09/21/19 03:25 White Blood Count 3.0 x10^3/uL (4.0-11.0) 3.5 x10^3/uL (4.0-11.0) Red Blood Count 3.92 x10^6/uL (4.30-5.70) 4.08 x10^6/uL (4.30-5.70) Hemoglobin 13.0 g/dL (13.0-17.5) 13.6 g/dL (13.0-17.5) Hematocrit 39.0 % (39.0-53.0) 40.8 % (39.0-53.0) Mean Corpuscular Volume 99 fL (79-100) 100 fL (79-100) Mean Corpuscular Hemoglobin 33 pg (25-35) 33 pg (25-35) Mean Corpuscular Hemoglobin Concent 33 g/dL (31-37) 33 g/dL (31-37) Red Cell Distribution Width 15.3 % (11.5-14.5) 15.3 % (11.5-14.5) Platelet Count 58 x10^3/uL (140-400) 70 x10^3/uL (140-400) Neutrophils (%) (Auto) 64 % (31-73) 60 % (31-73) Lymphocytes (%) (Auto) 22 % (24-48) 25 % (24-48) Monocytes (%) (Auto) 10 % (0-9) 11 % (0-9) Eosinophils (%) (Auto) 3 % (0-3) 4 % (0-3) Basophils (%) (Auto) 1 % (0-3) 1 % (0-3) Neutrophils # (Auto) 1.9 x10^3/uL (1.8-7.7) 2.1 x10^3/uL (1.8-7.7) Lymphocytes # (Auto) 0.7 x10^3/uL (1.0-4.8) 0.9 x10^3/uL (1.0-4.8) Monocytes # (Auto) 0.3 x10^3/uL (0.0-1.1) 0.4 x10^3/uL (0.0-1.1) Eosinophils # (Auto) 0.1 x10^3/uL (0.0-0.7) 0.1 x10^3/uL (0.0-0.7) Basophils # (Auto) 0.0 x10^3/uL (0.0-0.2) 0.0 x10^3/uL (0.0-0.2) Sodium Level 139 mmol/L (136-145) 139 mmol/L (136-145) Potassium Level 3.8 mmol/L (3.5-5.1) 3.3 mmol/L (3.5-5.1) Chloride Level 105 mmol/L (98-107) 101 mmol/L (98-107) Carbon Dioxide Level 26 mmol/L (21-32) 26 mmol/L (21-32) Anion Gap 8 (6-14) 12 (6-14) Blood Urea Nitrogen 7 mg/dL (8-26) 7 mg/dL (8-26) Creatinine 0.6 mg/dL (0.7-1.3) 0.8 mg/dL (0.7-1.3) Estimated GFR (Cockcroft-Gault) 159.3 114.3 BUN/Creatinine Ratio 12 (6-20) 9 (6-20) Glucose Level 92 mg/dL (70-99) 124 mg/dL (70-99) Calcium Level 8.4 mg/dL (8.5-10.1) 8.7 mg/dL (8.5-10.1) Total Bilirubin 2.6 mg/dL (0.2-1.0) 2.8 mg/dL (0.2-1.0) Aspartate Amino Transf (AST/SGOT) 81 U/L (15-37) 90 U/L (15-37) Alanine Aminotransferase (ALT/SGPT) 69 U/L (16-63) 69 U/L (16-63) Alkaline Phosphatase 229 U/L (46-116) 228 U/L (46-116) Total Protein 7.0 g/dL (6.4-8.2) 7.3 g/dL (6.4-8.2) Albumin 2.9 g/dL (3.4-5.0) 3.2 g/dL (3.4-5.0) Albumin/Globulin Ratio 0.7 (1.0-1.7) 0.8 (1.0-1.7) Erythrocyte Sedimentation Rate 45 (0-15) Gamma Glutamyl Transpeptidase 794 U/L (10-85) Laboratory Tests Test 09/20/19 14:15 09/21/19 03:25 Erythrocyte Sedimentation Rate 45 (0-15) Gamma Glutamyl Transpeptidase 794 U/L (10-85) White Blood Count 3.5 x10^3/uL (4.0-11.0) Red Blood Count 4.08 x10^6/uL (4.30-5.70) Hemoglobin 13.6 g/dL (13.0-17.5) Hematocrit 40.8 % (39.0-53.0) Mean Corpuscular Volume 100 fL (79-100) Mean Corpuscular Hemoglobin 33 pg (25-35) Mean Corpuscular Hemoglobin Concent 33 g/dL (31-37) Red Cell Distribution Width 15.3 % (11.5-14.5) Platelet Count 70 x10^3/uL (140-400) Neutrophils (%) (Auto) 60 % (31-73) Lymphocytes (%) (Auto) 25 % (24-48) Monocytes (%) (Auto) 11 % (0-9) Eosinophils (%) (Auto) 4 % (0-3) Basophils (%) (Auto) 1 % (0-3) Neutrophils # (Auto) 2.1 x10^3/uL (1.8-7.7) Lymphocytes # (Auto) 0.9 x10^3/uL (1.0-4.8) Monocytes # (Auto) 0.4 x10^3/uL (0.0-1.1) Eosinophils # (Auto) 0.1 x10^3/uL (0.0-0.7) Basophils # (Auto) 0.0 x10^3/uL (0.0-0.2) Sodium Level 139 mmol/L (136-145) Potassium Level 3.3 mmol/L (3.5-5.1) Chloride Level 101 mmol/L (98-107) Carbon Dioxide Level 26 mmol/L (21-32) Anion Gap 12 (6-14) Blood Urea Nitrogen 7 mg/dL (8-26) Creatinine 0.8 mg/dL (0.7-1.3) Estimated GFR (Cockcroft-Gault) 114.3 BUN/Creatinine Ratio 9 (6-20) Glucose Level 124 mg/dL (70-99) Calcium Level 8.7 mg/dL (8.5-10.1) Total Bilirubin 2.8 mg/dL (0.2-1.0) Aspartate Amino Transf (AST/SGOT) 90 U/L (15-37) Alanine Aminotransferase (ALT/SGPT) 69 U/L (16-63) Alkaline Phosphatase 228 U/L (46-116) Total Protein 7.3 g/dL (6.4-8.2) Albumin 3.2 g/dL (3.4-5.0) Albumin/Globulin Ratio 0.8 (1.0-1.7) Assessment/Plan Assessment/Plan cholelithiasis in primary liver disease plts 70, INR 1.4 alcohol level on admission 289 no acute cholecystitis findings --recommend elective analilia once sustained from alcohol abuse --can FU in clinic with KORY Burrell MD 09/21/19 1110: CONSULT Assessment/Plan Assessment/Plan Patient with alcoholic liver disease. History of espohageal varices. Cholelithiasis without cholecystitis. Patient is not a surgical candidate while actively drinking. Needs to be sober for 3 months prior to any consideration for cholecystectomy. AMANDA GUERRERO APRN Sep 21, 2019 08:57 KORY YAO MD Sep 21, 2019 11:10
[2019-09-21] MEDS: LIDOCAINE (700MG/PATCH) PATCH. TD SCH (09:00)
[2019-09-21] MEDS: DICLOFENAC SODIUM 1% TOPICAL GEL 100GM TUBE. TP SCH (09:00)
[2019-09-21] MEDS: ZIPRASIDONE 20 MG CAPSULE PO SCH (09:06)
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
[2019-09-21 11:00] VITALS: BP 133/80
[2019-09-21] MEDS ORDERED: HYDROmorphone 2 MG TABLET PO PRN (11:30)
--- NOTE | 2019-09-21 11:34 | PDOC ---
G I PROGRESS NOTE Subjective "RUQ" pain radiating to back. Requesting pain meds. Physical Exam Lungs clear. RRR Abdomen soft, not tender nor distended. Right costal margin tender and along rib posteriorly. Review of Relevant I have reviewed the following items mc (where applicable) has been applied. Labs Laboratory Tests Test 09/20/19 05:09 09/20/19 14:15 09/21/19 03:25 White Blood Count 3.0 x10^3/uL (4.0-11.0) 3.5 x10^3/uL (4.0-11.0) Red Blood Count 3.92 x10^6/uL (4.30-5.70) 4.08 x10^6/uL (4.30-5.70) Hemoglobin 13.0 g/dL (13.0-17.5) 13.6 g/dL (13.0-17.5) Hematocrit 39.0 % (39.0-53.0) 40.8 % (39.0-53.0) Mean Corpuscular Volume 99 fL (79-100) 100 fL (79-100) Mean Corpuscular Hemoglobin 33 pg (25-35) 33 pg (25-35) Mean Corpuscular Hemoglobin Concent 33 g/dL (31-37) 33 g/dL (31-37) Red Cell Distribution Width 15.3 % (11.5-14.5) 15.3 % (11.5-14.5) Platelet Count 58 x10^3/uL (140-400) 70 x10^3/uL (140-400) Neutrophils (%) (Auto) 64 % (31-73) 60 % (31-73) Lymphocytes (%) (Auto) 22 % (24-48) 25 % (24-48) Monocytes (%) (Auto) 10 % (0-9) 11 % (0-9) Eosinophils (%) (Auto) 3 % (0-3) 4 % (0-3) Basophils (%) (Auto) 1 % (0-3) 1 % (0-3) Neutrophils # (Auto) 1.9 x10^3/uL (1.8-7.7) 2.1 x10^3/uL (1.8-7.7) Lymphocytes # (Auto) 0.7 x10^3/uL (1.0-4.8) 0.9 x10^3/uL (1.0-4.8) Monocytes # (Auto) 0.3 x10^3/uL (0.0-1.1) 0.4 x10^3/uL (0.0-1.1) Eosinophils # (Auto) 0.1 x10^3/uL (0.0-0.7) 0.1 x10^3/uL (0.0-0.7) Basophils # (Auto) 0.0 x10^3/uL (0.0-0.2) 0.0 x10^3/uL (0.0-0.2) Sodium Level 139 mmol/L (136-145) 139 mmol/L (136-145) Potassium Level 3.8 mmol/L (3.5-5.1) 3.3 mmol/L (3.5-5.1) Chloride Level 105 mmol/L (98-107) 101 mmol/L (98-107) Carbon Dioxide Level 26 mmol/L (21-32) 26 mmol/L (21-32) Anion Gap 8 (6-14) 12 (6-14) Blood Urea Nitrogen 7 mg/dL (8-26) 7 mg/dL (8-26) Creatinine 0.6 mg/dL (0.7-1.3) 0.8 mg/dL (0.7-1.3) Estimated GFR (Cockcroft-Gault) 159.3 114.3 BUN/Creatinine Ratio 12 (6-20) 9 (6-20) Glucose Level 92 mg/dL (70-99) 124 mg/dL (70-99) Calcium Level 8.4 mg/dL (8.5-10.1) 8.7 mg/dL (8.5-10.1) Total Bilirubin 2.6 mg/dL (0.2-1.0) 2.8 mg/dL (0.2-1.0) Aspartate Amino Transf (AST/SGOT) 81 U/L (15-37) 90 U/L (15-37) Alanine Aminotransferase (ALT/SGPT) 69 U/L (16-63) 69 U/L (16-63) Alkaline Phosphatase 229 U/L (46-116) 228 U/L (46-116) Total Protein 7.0 g/dL (6.4-8.2) 7.3 g/dL (6.4-8.2) Albumin 2.9 g/dL (3.4-5.0) 3.2 g/dL (3.4-5.0) Albumin/Globulin Ratio 0.7 (1.0-1.7) 0.8 (1.0-1.7) Erythrocyte Sedimentation Rate 45 (0-15) Gamma Glutamyl Transpeptidase 794 U/L (10-85) Laboratory Tests Test 09/20/19 14:15 09/21/19 03:25 Erythrocyte Sedimentation Rate 45 (0-15) Gamma Glutamyl Transpeptidase 794 U/L (10-85) White Blood Count 3.5 x10^3/uL (4.0-11.0) Red Blood Count 4.08 x10^6/uL (4.30-5.70) Hemoglobin 13.6 g/dL (13.0-17.5) Hematocrit 40.8 % (39.0-53.0) Mean Corpuscular Volume 100 fL (79-100) Mean Corpuscular Hemoglobin 33 pg (25-35) Mean Corpuscular Hemoglobin Concent 33 g/dL (31-37) Red Cell Distribution Width 15.3 % (11.5-14.5) Platelet Count 70 x10^3/uL (140-400) Neutrophils (%) (Auto) 60 % (31-73) Lymphocytes (%) (Auto) 25 % (24-48) Monocytes (%) (Auto) 11 % (0-9) Eosinophils (%) (Auto) 4 % (0-3) Basophils (%) (Auto) 1 % (0-3) Neutrophils # (Auto) 2.1 x10^3/uL (1.8-7.7) Lymphocytes # (Auto) 0.9 x10^3/uL (1.0-4.8) Monocytes # (Auto) 0.4 x10^3/uL (0.0-1.1) Eosinophils # (Auto) 0.1 x10^3/uL (0.0-0.7) Basophils # (Auto) 0.0 x10^3/uL (0.0-0.2) Sodium Level 139 mmol/L (136-145) Potassium Level 3.3 mmol/L (3.5-5.1) Chloride Level 101 mmol/L (98-107) Carbon Dioxide Level 26 mmol/L (21-32) Anion Gap 12 (6-14) Blood Urea Nitrogen 7 mg/dL (8-26) Creatinine 0.8 mg/dL (0.7-1.3) Estimated GFR (Cockcroft-Gault) 114.3 BUN/Creatinine Ratio 9 (6-20) Glucose Level 124 mg/dL (70-99) Calcium Level 8.7 mg/dL (8.5-10.1) Total Bilirubin 2.8 mg/dL (0.2-1.0) Aspartate Amino Transf (AST/SGOT) 90 U/L (15-37) Alanine Aminotransferase (ALT/SGPT) 69 U/L (16-63) Alkaline Phosphatase 228 U/L (46-116) Total Protein 7.3 g/dL (6.4-8.2) Albumin 3.2 g/dL (3.4-5.0) Albumin/Globulin Ratio 0.8 (1.0-1.7) Platelets stable to improving. Vitals/I & O Vital Sign - Last 24 Hours 09/20/19 09/20/19 09/20/19 09/20/19 11:42 13:31 14:01 16:40 Temp 98.9 98.1 98.9 98.1 Pulse 89 102 Resp 20 20 18 20 B/P (MAP) 145/93 (110) 141/95 (110) Pulse Ox 97 94 O2 Delivery Room Air Room Air Room Air 09/20/19 09/20/19 09/20/19 09/20/19 19:36 20:00 20:00 20:43 Temp 97.6 97.6 Pulse 84 Resp 20 B/P (MAP) 143/91 (108) Pulse Ox 95 O2 Delivery Room Air Room Air Room Air Room Air O2 Flow Rate 2.0 2.0 09/20/19 09/20/19 09/21/19 09/21/19 21:43 23:44 02:05 02:35 Temp 97.6 97.6 Pulse 91 Resp 20 B/P (MAP) 139/88 (105) Pulse Ox 95 O2 Delivery Room Air Room Air Room Air Room Air 10/22/09/21/19 09/21/19 09/21/19 03:27 06:45 07:15 08:00 Temp 98.2 98.7 98.2 98.7 Pulse 83 71 Resp 20 20 B/P (MAP) 135/84 (101) 107/57 (74) Pulse Ox 95 96 O2 Delivery Room Air Room Air Room Air Room Air 09/21/19 11:00 Temp 97.8 97.8 Pulse 90 Resp 20 B/P (MAP) 133/80 (97) Pulse Ox 91 O2 Delivery Room Air Intake and Output 09/20/19 09/20/19 09/21/19 15:00 23:00 07:00 Intake Total 80 ml 150 ml 700 ml Balance 80 ml 150 ml 700 ml Problem List Problems Medical Problems: (1) Aggressive behavior Status: Acute (2) Alcohol intoxication Status: Chronic (3) Suicidal ideation Status: Acute Assessment "RUQ" pain seems musculoskeletal. Alcohol abuse; needs to stop. Cirrhosis, fairly well-compensated, likely more alcoholic than AAT deficiency. No evidence for any meaningful GI bleeding. Alcoholic hepatitis. Plan of Care Note Have no GI w/u planned. Stressed need to stop drinking; basically slow suicide. OK with me to d/c at your discretion. Heat/local therapy for rib pain. MEENA HASTINGS MD Sep 21, 2019 11:34
--- NOTE | 2019-09-21 11:52 | CONS ---
DATE OF CONSULTATION: 09/21/2019 REFERRING PHYSICIAN: Travon Renee MD REASON FOR CONSULTATION: Possible pneumonia. HISTORY OF PRESENT ILLNESS: A 29-year-old male with recurrent hospitalization, discharged on 09/14/2019, returned on 09/16/2019 to the ER for the third time in the last month for suicidal ideation and self-harm. The patient was combative for EMS who gave him ketamine prior to admission. The patient has superficial laceration to the left and the right wrist. He had been drinking heavily. Workup before EMS arrived, the patient's white count was normal. He was afebrile. The patient was not on any antibiotics. Yesterday, he started complaining of flank pain. CT abdomen was done, which showed cholelithiasis. General Surgery was consulted who had seen the patient in the past and they had recommended lap analilia once sustained from alcohol use. He continues to have nausea, vomiting and right upper quadrant pain, also had symptoms, but UA was negative on admission. The patient is currently not on any oxygen, but states he has cough, brings up sputum production. He is requesting gallbladder surgery, is also requesting for EGD. GI has been following. The patient is not a candidate for GI surgery at this time. He had an EGD done in 07/2019 which showed varices from prior banding in the distal third of the esophagus with 1 or 2 mm linear ulceration, diffuse portal hypertensive gastropathy. No gastric varices, no ulcer. Normal duodenum. The patient today complains of subjective fevers or chills. He says he aches all over. He states he has poor appetite. This is the first time he had a full meal. The patient was started on Zosyn. ID consult has been requested for antibiotic management. PAST MEDICAL HISTORY: Alcohol dependence, addiction, depression, schizophrenia, portal gastropathy, cholelithiasis, hypertension, gastritis, GI bleed, cirrhosis, suicidal ideation, depression, aggressive behavior, alpha-1 antitrypsin deficiency, previous suicidal attempts. ALLERGIES: None. FAMILY HISTORY: Alcohol abuse. SOCIAL HISTORY: Drinks, smokes, possible polysubstance abuse. REVIEW OF SYSTEMS: Negative except for above. PHYSICAL EXAMINATION: VITAL SIGNS: Temperature 98.7, pulse 71, respiratory rate 20, blood pressure 107/57, oxygen saturation 96% on room air. The patient has remained afebrile this admission, was on 2 liters O2 by nasal cannula. GENERAL: Alert, oriented x 3 male, multiple complaints, appears comfortable, ambulating without any difficulty. HEENT: Normocephalic, atraumatic, anicteric. No thrush. NECK: Supple. LUNGS: Clear bilaterally. HEART: S1, S2. No gallops or murmurs. ABDOMEN: Soft, nontender, nondistended, no rebound or guarding. EXTREMITIES: No edema, no cyanosis. DERMATOLOGIC: Warm and dry. No generalized rash. NEUROLOGIC: Alert and oriented x 3, grossly nonfocal. PSYCHIATRIC: Cooperative, appropriate mood and affect. MUSCULOSKELETAL: No joint deformity, no decrease in range of motion. PSYCHIATRIC: Appropriate. LABORATORY DATA: WBC 3.5, hemoglobin 13.6, platelets 70, eosinophil 4, monos 11%, neutrophils 60%. ESR 45. CMP: Sodium 139, potassium 3.3, chloride 101, bicarbonate 26, BUN 7, creatinine 0.8, glucose 124, AST 90, ALT 69, alkaline phosphatase 228, lipase 34. Hepatitis profile last admission was within normal limits. UDS is positive for benzos, ethylene alcohol, salicylate less than 2.8, acetaminophen less than 2.0. IMPRESSION: 1. Leukopenia, likely from alcohol. 2. ETOH abuse with acute intoxication on admission. 3. Suicide attempt with wrist laceration and alcohol. No evidence of secondary bacterial infection. 4. Fall, abrasion to the left forehead, not infected. 5. CT showing possible infiltrate, could have been a component of aspiration. 6. Major depression. 7. Epigastric and right upper quadrant pain radiating to the flank and back, worse with meals. 8. Cholelithiasis. 9. Electrolyte imbalance. 10. Schizophrenia. 11. Alpha-1 antitrypsin deficiency. 12. Transaminitis with history of alcohol abuse. 13. Hepatic cirrhosis and portal hypertension. 14. Esophageal varices on EGD, 07/2019. 15. Thrombocytopenia, likely from alcohol. RECOMMENDATIONS: 1. Discontinue Zosyn. 2. Start the patient on empiric Augmentin. 3. UA has been negative. 4. GI has evaluated the patient. 5. General Surgery has evaluated the patient. Recommendations noted. 6. Maintain aspiration precaution. Thank you for allowing Infectious Disease to participate in this patient's care. TIBURCIO GARCIAS MD DR: Swathi JOB#: [id number] / [id number]
[2019-09-21] MEDS ORDERED: AMOX1TAB61 PO (12:31)
--- NOTE | 2019-09-21 13:00 | NUR ---
Discharge Note: DENISHA MCFARLAND [address] Discharge instructions and discharge home medications reviewed with Patient and a copy given. All questions have been answered and understanding verbalized. Provided patient information for follow up contact information for pain management, substance services, and guidance center. The following instructions and handouts were given: Suicidal feelings, how to help yourself and information on augmentin antibiotic Discontinued lines and drains: Peripheral IV intact. Patient discharged to Home or Self Care with Self via Wheelchair
--- NOTE | 2019-09-21 13:36 | NUR ---
SW following pt. Pt has made arrangements to stay with his friend post dc. Pt is provided with a clear instruction for post dc follow up. DC INSTRUCTION [facility] [place] for [facility] Management Address; [address] [place] [address], [id number] [facility] [place] [facility] [address] [place] [address], Contact [facility] mental health services [address] [place] [address] [id number] Discussed with RN.
[2019-09-21] MEDS ORDERED: AMOXICILLIN/K CLAV 875/125MG TABLET. PO SCH (15:00)
[2019-09-21] MEDS ORDERED: LACTOBACILLUS RHAMNOSUS GG 1 CAPSULE. PO SCH (21:00)
--- NOTE | 2019-09-23 09:07 | DS ---
DATE OF DISCHARGE: 09/21/2019 ADMISSION DIAGNOSIS: Suicidal ideations. DISCHARGE DIAGNOSIS: Resolving suicidal ideation, alcohol abuse and schizophrenia. HOSPITAL COURSE: The patient is a pleasant 29-year-old male who presented to the ER drunk and complaining of suicidal ideation. We admitted him, consulted the psychiatric assessment team, we did alcohol withdrawal protocol, got him back on his home meds after a few days and discharge with close outpatient followup. DISPOSITION: Home. ACTIVITY: As tolerated. DIET: Low sodium. MEDICATIONS: Please see MRAD. TOTAL TIME: 34 minutes. ESTEFANIAL Sarah VELÁSQUEZ DO DR: FRANKIE/alysia JOB#: [id number] / [id number]
== END 2019-09-21 15:03 | disposition home or self-care (01) | DRG 432 ==
LOC: ER 13:25 → 6 SOUTH 16:04
PROVIDERS: ADMIT Internal Medicine; ATTEND Internal Medicine
DX: K70.31 Alcoholic cirrhosis of liver with ascites (principal); J69.0 Pneumonitis due to inhalation of food and vomit; K76.6 Portal hypertension; R45.851 Suicidal ideations; F10.129 Alcohol abuse with intoxication, unspecified; K80.20 Calculus of gallbladder without cholecystitis without obstruction; K70.11 Alcoholic hepatitis with ascites; E87.6 Hypokalemia; F20.9 Schizophrenia, unspecified; G89.29 Other chronic pain; D69.59 Other secondary thrombocytopenia; I10 Essential (primary) hypertension; F32.9 Major depressive disorder, single episode, unspecified; S61.511A Laceration without foreign body of right wrist, initial encounter; S00.81XA Abrasion of other part of head, initial encounter; D72.819 Decreased white blood cell count, unspecified; E83.42 Hypomagnesemia; M19.90 Unspecified osteoarthritis, unspecified site; E66.01 Morbid (severe) obesity due to excess calories; G62.9 Polyneuropathy, unspecified; W19.XXXA Unspecified fall, initial encounter; Y93.89 Activity, other specified; Y92.89 Other specified places as the place of occurrence of the external cause; Y99.8 Other external cause status; Z59.0 Homelessness; Z68.32 Body mass index [BMI] 32.0-32.9, adult; Z87.891 Personal history of nicotine dependence; Z91.5 Personal history of self-harm; Z81.1 Family history of alcohol abuse and dependence
CPT/HCPCS: 36415; 70450; 74176; 80048; 80053; 80307; 80329; 81001; 82977; 83690; 83735; 85025; 85610; 85651; 85730; 87040; 93005; 94618; 96361; 96374; 96375; 96376; G0480; J1170; J1200; J1630; J1885; J2060; J2270; J2405; J2543; J3475; J7030; J7040; 99285-25; G0378

== ENCOUNTER 2020-01-10 07:38 | Inpatient (IN) | payer MEDICAID ==
[~2020-01-10] VITALS: Ht 180.3 cm; Wt 103.4 kg
[~2020-01-10 07:38] MED LIST changes: +AMOX1TAB61 PO; +BENZ0.5T32 PO; +CLON0.1T12 PO; +HYDR2TAB31 PO; +RIFA550T4 PO; +TRAZ-123 PO; -TRAZ-86 PO; +ZIPR20CA2 PO
[2020-01-10] MEDS ORDERED: ONDANSETRON PF 4 MG/2 ML VIAL. ONE (08:02)
[2020-01-10] MEDS ORDERED: IV NORMAL SALINE 1000ML BAG 1,000 ML IV ONE ×2 (08:15→11:00)
[2020-01-10] MEDS ORDERED: THIAMINE INJ 100 MG in IV DEXTROSE 5% 50 ML IV ONE (08:15)
[2020-01-10] MEDS ORDERED: ONDANSETRON PF 4 MG/2 ML VIAL. IVP ONE (08:15)
--- NOTE | 2020-01-10 08:23 | PHYS DOC ---
Past Medical History Past Medical History: Alcoholism, Depression, Schizophrenia, Other Additional Past Medical Histor: TACHYCARDIA, alpha 1 antitrypsin deficiency, DDD,esophogeal varicies Past Surgical History: Other Additional Past Surgical Histo: esophogeal varicies banding Smoking Status: Current Every Day Smoker Additional Information: 5 cigarettes daily Alcohol Use: Heavy Additional Information: 2 pints vodka daily-sober x 5 days Drug Use: None Adult General Chief Complaint Chief Complaint: NAUSEA/VOMITING/DIARRHA HPI HPI Patient is a 29 year old male with a history of alcohol abuse. The patient presents today secondary to nausea vomiting and diarrhea. He had reportedly been on a 2 week binge drinking 1-2 L of vodka daily and stopped one week ago. He was seen in the ED 5 days ago for similar symptoms but still had all call in his system. Patient reports that he had dark tarry stools at that time and was concerned because he has a history of bleeding esophageal varices. Today he continues to have dark tarry stools along with nausea and vomiting and the patient states that he did vomit some bright red blood this morning. This was only wants. He denies abdominal pain. Review of Systems Review of Systems All other ROS is negative unless otherwise stated in HPI Current Medications Current Medications Current Medications Medications (Trade) Dose Ordered Sig/Renee Start Time Stop Time Status Last Admin Dose Admin Fentanyl Citrate (Fentanyl 2ml Vial) 50 mcg 1X ONCE 01/10/20 10:00 01/10/20 10:01 DC 01/10/20 10:23 50 MCG Lorazepam (Ativan Inj) 1 mg Q2HR PRN 01/10/20 11:30 UNV Ondansetron HCl (Zofran) 4 mg PRN Q8HRS PRN 01/10/20 11:30 01/11/20 11:29 UNV Pantoprazole Sodium (PROTONIX VIAL for IV PUSH) 40 mg 1X ONCE 01/10/20 10:45 01/10/20 10:55 DC Sodium Chloride 1,000 ml @ 125 mls/hr Q8H 01/10/20 11:28 01/11/20 11:27 UNV Thiamine HCl 100 mg/Dextrose 51 ml @ 102 mls/hr 1X ONCE 01/10/20 08:15 01/10/20 08:44 DC 01/10/20 09:42 102 MLS/HR Allergies Allergies Allergies Coded Allergies Type Severity Reaction Last Updated Verified adhesive tape Allergy Intermediate Rash 11/02/19 Yes See above Physical Exam Physical Exam See above Constitutional: Well developed, well nourished, anxious and disheveled and vomiting. HENT: Normocephalic, atraumatic, bilateral external ears normal, oropharynx moist, no oral exudates, nose normal. [] Eyes: PERRLA, EOMI, conjunctiva normal, no discharge. [] Neck: Normal range of motion, no tenderness, supple, no stridor. [] Cardiovascular:Heart rate regular rhythm, no murmur [] Lungs & Thorax: Bilateral breath sounds clear to auscultation [] Abdomen: Bowel sounds normal, soft, no tenderness, no masses, no pulsatile masses. [] Skin: Warm, dry, no erythema, no rash. [] Back: No tenderness, no CVA tenderness. [] Extremities: No tenderness, no cyanosis, no clubbing, ROM intact, no edema. [] Neurologic: Alert and oriented X 3, normal motor function, normal sensory function, no focal deficits noted. [] Psychologic: Affect normal, judgement normal, mood normal. [] Current Patient Data Vital Signs Vital Signs Date Time Temp Pulse Resp B/P (MAP) Pulse Ox O2 Delivery O2 Flow Rate FiO2 01/10/20 11:15 143 20 160/97 (118) 98 Room Air 01/10/20 07:38 98.8 98.8 Lab Values Laboratory Tests Test 01/10/20 07:53 01/10/20 09:14 01/10/20 09:56 White Blood Count 6.5 x10^3/uL (4.0-11.0) Red Blood Count 4.15 x10^6/uL (4.30-5.70) L Hemoglobin 13.8 g/dL (13.0-17.5) Hematocrit 40.1 % (39.0-53.0) Mean Corpuscular Volume 97 fL (79-100) Mean Corpuscular Hemoglobin 33 pg (25-35) Mean Corpuscular Hemoglobin Concent 34 g/dL (31-37) Red Cell Distribution Width 14.9 % (11.5-14.5) H Platelet Count 73 x10^3/uL (140-400) L Neutrophils (%) (Auto) 75 % (31-73) H Lymphocytes (%) (Auto) 19 % (24-48) L Monocytes (%) (Auto) 5 % (0-9) Eosinophils (%) (Auto) 0 % (0-3) Basophils (%) (Auto) 1 % (0-3) Neutrophils # (Auto) 4.9 x10^3/uL (1.8-7.7) Lymphocytes # (Auto) 1.2 x10^3/uL (1.0-4.8) Monocytes # (Auto) 0.3 x10^3/uL (0.0-1.1) Eosinophils # (Auto) 0.0 x10^3/uL (0.0-0.7) Basophils # (Auto) 0.0 x10^3/uL (0.0-0.2) Sodium Level 139 mmol/L (136-145) Potassium Level 3.2 mmol/L (3.5-5.1) L Chloride Level 101 mmol/L (98-107) Carbon Dioxide Level 23 mmol/L (21-32) Anion Gap 15 (6-14) H Blood Urea Nitrogen 11 mg/dL (8-26) Creatinine 0.8 mg/dL (0.7-1.3) Estimated GFR (Cockcroft-Gault) 114.3 Glucose Level 133 mg/dL (70-99) H Calcium Level 9.4 mg/dL (8.5-10.1) Ethyl Alcohol Level < 10 mg/dL (0-10) Gastric Fluid Occult Blood Positive (NEG) Urine Collection Type Void Urine Color Hartley Urine Clarity Clear Urine pH Urine Specific [place] Urine Protein mg/dL (NEG-TRACE) Urine Glucose (UA) mg/dL (NEG) Urine Ketones (Stick) mg/dL (NEG) Urine Blood (NEG) Urine Nitrite (NEG) Urine Bilirubin (NEG) Urine Urobilinogen Dipstick mg/dL (0.2 mg/dL) Urine Leukocyte Esterase (NEG) Urine RBC 3-5 /HPF (0-2) Urine WBC 5-10 /HPF (0-4) Urine Squamous Epithelial Cells Few /LPF Urine Bacteria Few /HPF (0-FEW) Urine Mucus Marked /LPF Urine Opiates Screen Neg (NEG) Urine Methadone Screen Neg (NEG) Urine Barbiturates Neg (NEG) Urine Phencyclidine Screen Neg (NEG) Urine Amphetamine/Methamphetamine Neg (NEG) Urine Benzodiazepines Screen Neg (NEG) Urine Cocaine Screen Neg (NEG) Urine Cannabinoids Screen Pos (NEG) Urine Ethyl Alcohol Neg (NEG) Laboratory Tests 01/10/20 07:53 Laboratory Tests 01/10/20 07:53 EKG EKG [] Radiology/Procedures Radiology/Procedures [] Course & Med Decision Making Course & Med Decision Making Pertinent Labs and Imaging studies reviewed. (See chart for details) 0822: Patient seen for alcohol withdrawal symptoms with a history of esophageal varices and vomiting bright red blood times one this morning. We'll start with IV fluids and Ativan and Zofran for symptom relief. Give 100 mg thiamine due to alcohol abuse, check basic labs. Consider admission given the patient's history of esophageal varices based on his response to treatment and laboratory analysis. Differential diagnosis was alcohol withdrawal, GI bleed, esophageal variceal bleed 1045: Patient's workup is complete at this time and is remarkable for occult gastric blood. Given the patient's history of esophageal varices and ongoing nausea with occasional vomiting will admit. Patient has been given 40 mg of IV Protonix. He reports his last alcohol was Friday which would have been 5 days ago. He will also need to be treated for alcohol withdrawal symptoms. Dragon Disclaimer Dragon Disclaimer This electronic medical record was generated, in whole or in part, using a voice recognition dictation system. Departure Departure Impression: Primary Impression: Alcohol withdrawal Additional Impressions: Upper gastrointestinal bleeding Thrombocytopenia Disposition: ADMITTED INPATIENT Admitting Physician: LEE Condition: STABLE Referrals: UNKNOWN PCP NAME (PCP) Problem Qualifiers AMADOU COELLO DO Jan 10, 2020 08:23
[2020-01-10 08:42] LABS: BASO % 1 % (0-3); EOS % 0 % (0-3); HEMATOCRIT 40.1 % (39.0-53.0); HEMOGLOBIN 13.8 g/dL (13.0-17.5); LYMPH # 1.2 x10^3/uL (1.0-4.8); LYMPH % 19 % (24-48); MEAN CORPUSCULAR HEMOGLOBIN 33 pg (25-35); MEAN CORPUSCULAR HGB CONC 34 g/dL (31-37); MEAN CORPUSCULAR VOLUME 97 fL (79-100); MONO # 0.3 x10^3/uL (0.0-1.1); MONO % 5 % (0-9); NEUT # 4.9 x10^3/uL (1.8-7.7); NEUT % 75 % (31-73); PLATELET COUNT 73 x10^3/uL (140-400); RED BLOOD COUNT 4.15 x10^6/uL (4.30-5.70); RED CELL DISTRIBUTION WIDTH 14.9 % (11.5-14.5); WHITE BLOOD COUNT 6.5 x10^3/uL (4.0-11.0)
--- NOTE | 2020-01-10 08:54 | NUR ---
Observation record at 0847 was done at 0845.
[2020-01-10 09:03] LABS: CALCIUM 9.4 mg/dL (8.5-10.1); CREATININE 0.8 mg/dL (0.7-1.3); GFR 114.3; POTASSIUM 3.2 mmol/L (3.5-5.1)
[2020-01-10] MEDS ORDERED: fentaNYL PF VIAL 100 MCG/2 ML VIAL IVP ONE (10:00)
[2020-01-10 10:12] LABS: GASTRIC OB PAT POSITIVE (NEG)
[2020-01-10 10:37] LABS: CLARITY,URINE CLEAR; COLOR,URINE ORANGE
[2020-01-10 10:44] LABS: BARBITURATES NEG (NEG); BENZODIAZEPINES NEG (NEG); CANNABINOIDS POS (NEG); COCAINE NEG (NEG); METHADONE NEG (NEG); OPIATES NEG (NEG); PHENCYCLIDINE NEG (NEG)
[2020-01-10] MEDS ORDERED: PANTOPRAZOLE IV PUSH 40 MG VIAL. IVP ONE (10:45)
[2020-01-10 10:48] LABS: AMPHETAMINE/METHAMPHETAMINE NEG (NEG)
[2020-01-10 10:53] LABS: SQUAMOUS EPITHELIAL CELL,UR FEW /LPF
[2020-01-10 10:54] LABS: BACTERIA,URINE FEW /HPF (0-FEW)
--- NOTE | 2020-01-10 11:23 | PDOC1 ---
History and Physical Date of Admission Date of Admission DATE: 01/10/20 TIME: 11:22 Identification/Chief Complaint Chief Complaint SEEN IN ER WITH HEMATEMESIS SELF REPORTED 29 year old male with a history of alcohol abuse. The patient presents today secondary to nausea vomiting and diarrhea. He had reportedly been on a 2 week binge drinking 1-2 L of vodka daily and stopped one week ago. He was seen in the ED 5 days ago for similar symptoms . Patient reports that he had dark tarry stools at that time and was concerned because he has a history of bleeding esophageal varices . /// continues to have dark tarry stools along with nausea and vomiting and the patient states that he did vomit some bright red blood this morning. Past Medical History Past Medical History Past Medical History Past Medical History Past Medical History: Alcoholism, Depression, Schizophrenia, Other Additional Past Medical Histor: TACHYCARDIA, alpha 1 antitrypsin deficiency, DDD,esophogeal varicies Past Surgical History: Other Additional Past Surgical Histo: esophogeal varicies banding Smoking Status: Current Every Day Smoker Additional Information: 5 cigarettes daily Alcohol Use: Heavy Additional Information: 2 pints vodka daily-sober x 5 days Drug Use: None FHX ALCOHOL ABUSE Cardiovascular: HTN GI: GI bleed, Gastritis, Other Hepatobiliary: Cirrhosis, Other Psych: Anxiety, Addictions, Depression, Schizophrenia, Other Past Surgical History Past Surgical History: No pertinent history Family History Family History: Alcohol Abuse, Hypertension, Family History Unknown, Other Social History Smoke: No ALCOHOL: heavy Drugs: None Current Problem List Problem List Problems Medical Problems: (1) Alcohol withdrawal Status: Acute Current Medications Current Medications Current Medications Ondansetron HCl (Zofran) 4 mg STK-MED ONCE .ROUTE ; Start 01/10/20 at 08:02; Stop 01/10/20 at 08:03; Status DC Ondansetron HCl (Zofran) 4 mg 1X ONCE IVP Last administered on 01/10/20at 08:08; Start 01/10/20 at 08:15; Stop 01/10/20 at 08:16; Status DC Sodium Chloride 1,000 ml @ 1,000 mls/hr 1X ONCE IV Last administered on 01/10/20at 08:08; Start 01/10/20 at 08:15; Stop 01/10/20 at 09:14; Status DC Lorazepam (Ativan Inj) 1 mg 1X ONCE IVP Last administered on 01/10/20at 08:43; Start 01/10/20 at 08:15; Stop 01/10/20 at 08:28; Status DC Thiamine HCl 100 mg/Dextrose 51 ml @ 102 mls/hr 1X ONCE IV Last administered on 01/10/20at 09:42; Start 01/10/20 at 08:15; Stop 01/10/20 at 08:44; Status DC Lorazepam (Ativan Inj) 1 mg 1X ONCE IVP Last administered on 01/10/20at 10:23; Start 01/10/20 at 10:00; Stop 01/10/20 at 10:01; Status DC Fentanyl Citrate (Fentanyl 2ml Vial) 50 mcg 1X ONCE IVP Last administered on 01/10/20at 10:23; Start 01/10/20 at 10:00; Stop 01/10/20 at 10:01; Status DC Pantoprazole Sodium (PROTONIX VIAL for IV PUSH) 40 mg 1X ONCE IVP ; Start 01/10/20 at 10:45; Stop 01/10/20 at 10:55; Status DC Sodium Chloride 1,000 ml @ 1,000 mls/hr 1X ONCE IV ; Start 01/10/20 at 11:00; Stop 01/10/20 at 11:59 Lorazepam (Ativan Inj) 1 mg 1X ONCE IVP ; Start 01/10/20 at 11:00; Stop 01/10/20 at 11:01; Status DC Active Scripts Active Benztropine Mesylate 0.5 Mg Tablet 1 Tab PO BID 30 Days Dilaudid (Hydromorphone Hcl) 2 Mg Tablet 2 Mg PO PRN Q8HRS PRN 6 Days Geodon (Ziprasidone Hcl) 20 Mg Capsule 20 Mg PO BID 30 Days Trazodone Hcl 100 Mg Tablet 100 Mg PO QHS 30 Days Catapres (Clonidine Hcl) 0.1 Mg Tablet 0.1 Mg PO PRN Q1HR PRN 7 Days Can take for withdrawal symptoms Xifaxan (Rifaximin) 550 Mg Tablet 550 Mg PO Q12HR 30 Days Lactulose 20 Gm/30 Ml Solution 20 Gm PO TID 30 Days Prazosin Hcl 1 Mg Capsule 1 Cap PO QHS 30 Days Pantoprazole Sodium (Pantoprazole Sodium) 40 Mg Tablet.dr 40 Mg PO DAILYAC Multivitamins (Multivitamin) 1 Each Tablet 1 Tab PO DAILY Folic Acid 1 Mg Tablet 1 Tab PO DAILY Vitamin B-1 (Thiamine Hcl) 100 Mg Tablet 100 Mg PO DAILY 30 Days Feosol (Ferrous Sulfate) 325 Mg Tablet 325 Mg PO DAILYWBKFT 30 Days Reported Zyprexa (Olanzapine) 5 Mg Tablet 1 Tab PO QHS Hydroxyzine Hcl 25 Mg Tablet 3 Tab PO TID Allergies Allergies: Coded Allergies: adhesive tape (Verified Allergy, Intermediate, Rash, 11/02/19) ROS Review of System 14 PT ROS OTHERWISE NEG General: YES: Fatigue, Malaise; No: Chills, Night Sweats, Appetite, Other PSYCHOLOGICAL ROS: YES: Anxiety, Concentration difficultie, Depression, Irritablity, Mood Swings Eyes: No Blurry vision, No Decreased vision, No Double vision, No Dry eyes, No Excessive tearing, No Eye Pain, No Itchy Eyes, No Loss of vision, No Photophobia, No Scotomata, No Uses contacts, No Uses glasses, No Other HEENT: No: Heacaches, Visual Changes, Hearing change, Nasal congestion, Nasal discharge, Oral lesions, Sinus pain, Sore Throat, Epistaxis, Sneezing, Snoring, Tinnitus, Vertigo, Vocal changes, Other ALLERGY AND IMMUNOLOGY: No: Hives, Insect Bite Sensitivity, Itchy/Watery Eyes, Nasal Congestion, Post Nasal Drip, Seasonal Allergies, Other Hematological and Lymphatic: YES: Bleeding Problems; No: Blood Clots, Blood Transfusions, Brusing, Night Sweats, Pallor, Swollen Lymph Nodes, Other ENDOCRINE: No: Breast Changes, Galactorrhea, Hair Pattern Changes, Hot Flashes, Malaise/lethargy, Mood Swings, Palpitations, Polydipsia/polyuria, Skin Changes, Temperature Intolerance, Unexpected Weight Changes, Other Respiratory: No: Cough, Hemoptysis, Orthopnea, Pleuritic Pain, Shortness of breath, SOB with excertion, Sputum Changes, Stridor, Tachypnea, Wheezing, Other Gastrointestinal: Yes Nausea, Yes Vomiting, Yes Abdominal Pain Genitourinary: No Dysuria, No Frequency, No Incontinence, No Hematuria, No Retention, No Discharge, No Urgency, No Pain, No Flank Pain, No Other, No , No , No , No , No , No , No Musculoskeletal: No Gait Disturbance, No Joint Pain, No Joint Stiffness, No Joint Swelling, No Muscle Pain, No Muscular Weakness, No Pain In:, No Swelling In:, No Other Neurological: Yes Behavorial Changes; No Bowel/Bladder ControlChng, No Confusion, No Dizziness, No Gait Disturbance, No Headaches, No Impaired Coord/balance, No Memory Loss, No Numbness/Tingling, No Seizures, No Speech Problems, No Tremors, No Visual Changes, No Weakness, No Other Skin: Yes Dry Skin; No Eczema, No Hair Changes, No Lumps, No Mole Changes, No Mottling, No Nail Changes, No Pruritus, No Rash, No Skin Lesion Changes, No Other, No Acne Physical Exam Physical Exam Physical Exam Physical Exam See above Constitutional: Well developed, well nourished, anxious and disheveled and vomiting. HENT: Normocephalic, atraumatic, bilateral external ears normal, oropharynx moist, no oral exudates, nose normal. [] Eyes: PERRLA, EOMI, conjunctiva normal, no discharge. [] Neck: Normal range of motion, no tenderness, supple, no stridor. [] Cardiovascular:Heart rate regular rhythm, no murmur [] Lungs & Thorax: Bilateral breath sounds clear to auscultation [] Abdomen: Bowel sounds normal, soft, no tenderness, no masses, no pulsatile masses. [] Skin: Warm, dry, no erythema, no rash. [] Back: No tenderness, no CVA tenderness. [] Extremities: No tenderness, no cyanosis, no clubbing, ROM intact, no edema. [] Neurologic: Alert and oriented X 3, normal motor function, normal sensory function, no focal deficits noted. [] Psychologic: Affect normal, judgment POOR, mood DEPRESSED. [] General: Alert, Oriented X3, Cooperative, mild distress HEENT: Atraumatic Lungs: Clear to auscultation, Normal air movement Heart: RRR, no thrills Breasts: Not examined Abdomen: Normal bowel sounds, Soft Rectal Exam: not examined PELVIC: Examination not indicated Extremities: No cyanosis Neuro: Normal speech, Cranial nerves 3-12 NL Vitals Vitals Vital Signs Date Time Temp Pulse Resp B/P (MAP) Pulse Ox O2 Delivery O2 Flow Rate FiO2 01/10/20 11:15 143 20 160/97 (118) 98 Room Air 01/10/20 07:38 98.8 98.8 Labs Labs Laboratory Tests Test 01/10/20 07:53 01/10/20 09:14 01/10/20 09:56 White Blood Count 6.5 x10^3/uL (4.0-11.0) Red Blood Count 4.15 x10^6/uL (4.30-5.70) Hemoglobin 13.8 g/dL (13.0-17.5) Hematocrit 40.1 % (39.0-53.0) Mean Corpuscular Volume 97 fL (79-100) Mean Corpuscular Hemoglobin 33 pg (25-35) Mean Corpuscular Hemoglobin Concent 34 g/dL (31-37) Red Cell Distribution Width 14.9 % (11.5-14.5) Platelet Count 73 x10^3/uL (140-400) Neutrophils (%) (Auto) 75 % (31-73) Lymphocytes (%) (Auto) 19 % (24-48) Monocytes (%) (Auto) 5 % (0-9) Eosinophils (%) (Auto) 0 % (0-3) Basophils (%) (Auto) 1 % (0-3) Neutrophils # (Auto) 4.9 x10^3/uL (1.8-7.7) Lymphocytes # (Auto) 1.2 x10^3/uL (1.0-4.8) Monocytes # (Auto) 0.3 x10^3/uL (0.0-1.1) Eosinophils # (Auto) 0.0 x10^3/uL (0.0-0.7) Basophils # (Auto) 0.0 x10^3/uL (0.0-0.2) Sodium Level 139 mmol/L (136-145) Potassium Level 3.2 mmol/L (3.5-5.1) Chloride Level 101 mmol/L (98-107) Carbon Dioxide Level 23 mmol/L (21-32) Anion Gap 15 (6-14) Blood Urea Nitrogen 11 mg/dL (8-26) Creatinine 0.8 mg/dL (0.7-1.3) Estimated GFR (Cockcroft-Gault) 114.3 Glucose Level 133 mg/dL (70-99) Calcium Level 9.4 mg/dL (8.5-10.1) Ethyl Alcohol Level < 10 mg/dL (0-10) Gastric Fluid Occult Blood Positive (NEG) Urine Collection Type Void Urine Color [place] Urine Clarity Clear Urine pH Urine Specific [place] Urine Protein mg/dL (NEG-TRACE) Urine Glucose (UA) mg/dL (NEG) Urine Ketones (Stick) mg/dL (NEG) Urine Blood (NEG) Urine Nitrite (NEG) Urine Bilirubin (NEG) Urine Urobilinogen Dipstick mg/dL (0.2 mg/dL) Urine Leukocyte Esterase (NEG) Urine RBC 3-5 /HPF (0-2) Urine WBC 5-10 /HPF (0-4) Urine Squamous Epithelial Cells Few /LPF Urine Bacteria Few /HPF (0-FEW) Urine Mucus Marked /LPF Urine Opiates Screen Neg (NEG) Urine Methadone Screen Neg (NEG) Urine Barbiturates Neg (NEG) Urine Phencyclidine Screen Neg (NEG) Urine Amphetamine/Methamphetamine Neg (NEG) Urine Benzodiazepines Screen Neg (NEG) Urine Cocaine Screen Neg (NEG) Urine Cannabinoids Screen Pos (NEG) Urine Ethyl Alcohol Neg (NEG) Laboratory Tests Test 01/10/20 07:53 01/10/20 09:14 01/10/20 09:56 White Blood Count 6.5 x10^3/uL (4.0-11.0) Red Blood Count 4.15 x10^6/uL (4.30-5.70) Hemoglobin 13.8 g/dL (13.0-17.5) Hematocrit 40.1 % (39.0-53.0) Mean Corpuscular Volume 97 fL (79-100) Mean Corpuscular Hemoglobin 33 pg (25-35) Mean Corpuscular Hemoglobin Concent 34 g/dL (31-37) Red Cell Distribution Width 14.9 % (11.5-14.5) Platelet Count 73 x10^3/uL (140-400) Neutrophils (%) (Auto) 75 % (31-73) Lymphocytes (%) (Auto) 19 % (24-48) Monocytes (%) (Auto) 5 % (0-9) Eosinophils (%) (Auto) 0 % (0-3) Basophils (%) (Auto) 1 % (0-3) Neutrophils # (Auto) 4.9 x10^3/uL (1.8-7.7) Lymphocytes # (Auto) 1.2 x10^3/uL (1.0-4.8) Monocytes # (Auto) 0.3 x10^3/uL (0.0-1.1) Eosinophils # (Auto) 0.0 x10^3/uL (0.0-0.7) Basophils # (Auto) 0.0 x10^3/uL (0.0-0.2) Sodium Level 139 mmol/L (136-145) Potassium Level 3.2 mmol/L (3.5-5.1) Chloride Level 101 mmol/L (98-107) Carbon Dioxide Level 23 mmol/L (21-32) Anion Gap 15 (6-14) Blood Urea Nitrogen 11 mg/dL (8-26) Creatinine 0.8 mg/dL (0.7-1.3) Estimated GFR (Cockcroft-Gault) 114.3 Glucose Level 133 mg/dL (70-99) Calcium Level 9.4 mg/dL (8.5-10.1) Ethyl Alcohol Level < 10 mg/dL (0-10) Gastric Fluid Occult Blood Positive (NEG) Urine Collection Type Void Urine Color [place] Urine Clarity Clear Urine pH Urine Specific [place] Urine Protein mg/dL (NEG-TRACE) Urine Glucose (UA) mg/dL (NEG) Urine Ketones (Stick) mg/dL (NEG) Urine Blood (NEG) Urine Nitrite (NEG) Urine Bilirubin (NEG) Urine Urobilinogen Dipstick mg/dL (0.2 mg/dL) Urine Leukocyte Esterase (NEG) Urine RBC 3-5 /HPF (0-2) Urine WBC 5-10 /HPF (0-4) Urine Squamous Epithelial Cells Few /LPF Urine Bacteria Few /HPF (0-FEW) Urine Mucus Marked /LPF Urine Opiates Screen Neg (NEG) Urine Methadone Screen Neg (NEG) Urine Barbiturates Neg (NEG) Urine Phencyclidine Screen Neg (NEG) Urine Amphetamine/Methamphetamine Neg (NEG) Urine Benzodiazepines Screen Neg (NEG) Urine Cocaine Screen Neg (NEG) Urine Cannabinoids Screen Pos (NEG) Urine Ethyl Alcohol Neg (NEG) Images Images TECHNIQUE: After IV infusion of 75 cc of Omnipaque 300, helical CT scanning of the abdomen and pelvis was performed. GI contrast was not administered. This may decrease the sensitivity to detect GI tract pathology. PQRS compliance Statement One or more of the following individualized dose reduction techniques were utilized for this study: 1. Automated exposure control 2. Adjustment of the mA and/or kV according to patient size 3. Use of iterative reconstruction technique COMPARISON: November 02, 2019. FINDINGS: The pancreas enhances homogeneously and no pancreatic mass is evident. Multiple hypodense lesions are seen throughout the liver. Liver contour is corrugated. Spleen is enlarged measuring 18.1 cm in length. Multiple varices are seen around the distal esophagus and in the gastrohepatic ligament and within the splenic hilum. The gallbladder is distended and there is a gallstone within the neck of the gallbladder measuring 28 mm. No extra hepatic biliary ductal dilatation is seen. No adrenal mass is evident. Both kidneys are normal. Urinary bladder wall is smooth. No focal aneurysmal dilatation of the abdominal aorta is seen. No bulky abdominal or pelvic lymphadenopathy is seen. There is diffuse wall thickening of the colon. The appendix is normal. No obstructive bowel pattern is evident. Mesenteric edema is seen. There is a small amount of free intraperitoneal fluid. No free air is seen. No lytic process is seen. No lung base consolidation is seen. IMPRESSION: Findings are consistent with cirrhosis and portal vein hypertension including splenomegaly and varices. There is a new finding of multiple hypodense lesions within the liver. The hepatic veins appear narrowed. Therefore this may represent mass effect and could be secondary to multicentric hepatocellular carcinoma in the setting of chronic cirrhosis. The more recent study and October 2019 was a noncontrast exam. Gallbladder is distended. There is a gallstone within the neck of the gallbladder. There is pericholecystic free fluid present. Therefore, cholecystitis is possible. Pericholecystic free fluid may be seen with passive venous congestion from liver disease as well. There is a small amount of ascites throughout the abdomen. Mesenteric edema may be a reflection of hepatic disease and portal vein hypertension. Correlation with pancreatic enzymes is recommended to exclude pancreatitis. Diffuse wall thickening of the colon which may be seen with colitis. Sigmoid diverticulosis is seen without diverticulitis. Electronically signed by: Yaya Verma MD (12/19/2019 7:54 PM) [facility] DICTATED and SIGNED BY: YAYA VERMA MD DATE: 12/19/191953 VTE Prophylaxis Ordered VTE Prophylaxis Devices: Yes VTE Pharmacological Prophylaxi: Contraindicated Assessment/Plan Assessment/Plan IMPRESSION EtOH abuse - SEVERE Major depression - needs outpatient treatment NONCOMPLIANCE HEMATEMESIS Chronic pain Pancytopenia - likely related to liver disease, Epigastric and RUQ PAIN, radiates to back, worse with meals RECENT CT Findings are consistent with cirrhosis and portal vein hypertension including splenomegaly and varices. There is a new finding of multiple hypodense lesions within the liver. The hepatic veins appear narrowed. Therefore this may represent mass effect and could be secondary to multicentric hepatocellular carcinoma in the setting of chronic cirrhosis. 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 Smoker - counseled on cessation Alpha-1 antitrypsin deficiency - MZ mutation - increases his risk of liver disease given his ETOH abuse DJD Transaminitis - fits ETOH pattern. Hepatic cirrhosis and findings of portal hypertension , C/W END ORGAN INJURY. INR 1.6 and Bilirubin4.5 Esophageal varices are numerous and more notable in the interval. ON RECENT CT Gallstone lodged at the gallbladder neck, no gallbladder wall thickening - seen by general surgery previously, no indication for surgery Plan: ADMIT GI CONSULT IV PROTONIX rifaximin ETOH cessation EDUCATED ON NEED Wean off opioids and benzos outpatient [facility] follow up POST D/C SERIAL H/H 76 MIN pt exam, chart review, > 50% of time spent with exam, chart review, pt care coordination KORY CRAIG MD Jan 10, 2020 11:23
[2020-01-10] MEDS ORDERED: ONDANSETRON PF 4 MG/2 ML VIAL. IV PRN ×2 (11:30→13:15)
[2020-01-10 12:29] LABS: ALBUMIN 3.8 g/dL (3.4-5.0); DIRECT BILIRUBIN 2.5 mg/dL (0.0-0.2); TOTAL BILIRUBIN 4.6 mg/dL (0.2-1.0); TOTAL PROTEIN 7.9 g/dL (6.4-8.2)
[2020-01-10] MEDS ORDERED: POTASSIUM CHLORIDE 20MEQ 100 ML IV SCH (13:00)
[2020-01-10] MEDS: POTASSIUM CHLORIDE 10MEQ 100 ML IV SCH ×4 (13:05→18:27)
[2020-01-10] MEDS: IV NORMAL SALINE 1000ML BAG 1,000 ML IV SCH ×4 (13:05→23:13)
[2020-01-10] MEDS ORDERED: cloNIDine HCL 0.1 MG TABLET PO PRN (13:15)
[2020-01-10] MEDS ORDERED: DOCUSATE SODIUM 100 MG CAPSULE. PO PRN (13:15)
[2020-01-10] MEDS ORDERED: guaiFENesin ORAL 200 MG/10 ML LIQUID. PO PRN (13:15)
[2020-01-10] MEDS ORDERED: 0.9 % SODIUM CHLORIDE 10 ML DISP.SYRIN. IV PRN (13:15)
[2020-01-10] MEDS ORDERED: ALBUTEROL SULFATE 2.5 MG/3 ML NEBU. NEB PRN (13:15)
[2020-01-10] MEDS ORDERED: MORPHINE SULFATE 4 MG/ML VIAL. IV ONE (13:15)
[2020-01-10] MEDS ORDERED: ACETAMINOPHEN 650 MG SUPP.RECT. PR PRN (13:15)
--- NOTE | 2020-01-10 13:55 | NUR ---
Observation and vital signs documentation at 1345 was done by SHARLA CUTLER EMT not by TED TURPIN.
[2020-01-10 14:07] LABS: HEMATOCRIT 36.7 % (39.0-53.0); HEMOGLOBIN 12.4 g/dL (13.0-17.5); RED BLOOD COUNT 3.78 x10^6/uL (4.30-5.70); RED CELL DISTRIBUTION WIDTH 15.6 % (11.5-14.5); WHITE BLOOD COUNT 4.9 x10^3/uL (4.0-11.0)
--- NOTE | 2020-01-10 14:08 | PDOC2 ---
GI CONSULT Reason For Consult: upper GI bleeding reported h/o varices HPI: HPI: 29 y/o male who we've seen many times, currently in ER. 9th admission since 07/2019. H/o alcoholic cirrhosis w/ +AAT MZ phenotype, cholelithiasis, chronic abd pain, and psych issues. Often fixated on having another EGD, usually reports some type of bleeding. EGD on 07/01/19 showed Grade II varices w/ scarring probably from prior banding in distal third of esophagus, two 1-2mm linear ulcerations w/ friability in distal esophagus (?M-W), irregular SQ junction w/ GERD, no convincing site or major bleeding, diffuse portal hypertensive gastropathy, no gastric varices, no ulcer, normal duodenum. Latest CT A/P in 12/2019 noted hypodense liver lesions. AFP was normal and CEA was elevated (6.4). Hepatitis panel negative 08/2019. LFTs chronically e levated, chronic thrombocytopenia and coagulopathy, also some elevation in ammonia in the past. H/o GERD - last time was taking nothing because he didn't have symptoms. Diverticulosis on imaging. Surgery has seen in the past - recommended sobriety before considering cholecystectomy. Reports severe abdominal pain w/ vomiting this morning. Pain is in upper abdomen and in the middle, severe, goes to both sides and around to right flank. Last drank alcohol on Friday (01/05/20 - had alcohol level of 336 in ER that day). Hasn't eaten much for a week. Stooling off and on. Didn't offer any bleeding history until I asked - reports melena for weeks and hematemesis this morning. Gastric occult was positive. Would like an EGD to check varices. PMH: PMH: per HPI FH: Family History: Other (AAT - father, GERD/Brown's - mother) Social History: Smoke: <1 pack per day ALCOHOL: heavy Drugs: Marijuana ROS: GEN: Denies fevers, chills, sweats HEENT: Denies blurred vision, sore throat CV: Denies chest pain RESP: Denies shortness of air, cough GI: Per HPI : Denies hematuria, dysuria ENDO: Denies weight changes NEURO: Denies confusion, dizziness MSK: Denies weakness, joint pain/swelling SKIN: Denies jaundice, pruritus Vitals: Vitals: Vital Signs Date Time Temp Pulse Resp B/P (MAP) Pulse Ox O2 Delivery O2 Flow Rate FiO2 01/10/20 13:21 137 34 155/102 (119) 97 Room Air 01/10/20 07:38 98.8 98.8 Labs: Labs: Laboratory Tests Test 01/10/20 07:53 01/10/20 09:14 01/10/20 09:56 White Blood Count 6.5 x10^3/uL (4.0-11.0) Red Blood Count 4.15 x10^6/uL (4.30-5.70) Hemoglobin 13.8 g/dL (13.0-17.5) Hematocrit 40.1 % (39.0-53.0) Mean Corpuscular Volume 97 fL (79-100) Mean Corpuscular Hemoglobin 33 pg (25-35) Mean Corpuscular Hemoglobin Concent 34 g/dL (31-37) Red Cell Distribution Width 14.9 % (11.5-14.5) Platelet Count 73 x10^3/uL (140-400) Neutrophils (%) (Auto) 75 % (31-73) Lymphocytes (%) (Auto) 19 % (24-48) Monocytes (%) (Auto) 5 % (0-9) Eosinophils (%) (Auto) 0 % (0-3) Basophils (%) (Auto) 1 % (0-3) Neutrophils # (Auto) 4.9 x10^3/uL (1.8-7.7) Lymphocytes # (Auto) 1.2 x10^3/uL (1.0-4.8) Monocytes # (Auto) 0.3 x10^3/uL (0.0-1.1) Eosinophils # (Auto) 0.0 x10^3/uL (0.0-0.7) Basophils # (Auto) 0.0 x10^3/uL (0.0-0.2) Sodium Level 139 mmol/L (136-145) Potassium Level 3.2 mmol/L (3.5-5.1) Chloride Level 101 mmol/L (98-107) Carbon Dioxide Level 23 mmol/L (21-32) Anion Gap 15 (6-14) Blood Urea Nitrogen 11 mg/dL (8-26) Creatinine 0.8 mg/dL (0.7-1.3) Estimated GFR (Cockcroft-Gault) 114.3 Glucose Level 133 mg/dL (70-99) Calcium Level 9.4 mg/dL (8.5-10.1) Total Bilirubin 4.6 mg/dL (0.2-1.0) Direct Bilirubin 2.5 mg/dL (0.0-0.2) Aspartate Amino Transf (AST/SGOT) 282 U/L (15-37) Alanine Aminotransferase (ALT/SGPT) 134 U/L (16-63) Alkaline Phosphatase 256 U/L (46-116) Total Protein 7.9 g/dL (6.4-8.2) Albumin 3.8 g/dL (3.4-5.0) Ethyl Alcohol Level < 10 mg/dL (0-10) Gastric Fluid Occult Blood Positive (NEG) Urine Collection Type Void Urine Color [place] Urine Clarity Clear Urine pH Urine Specific [place] Urine Protein mg/dL (NEG-TRACE) Urine Glucose (UA) mg/dL (NEG) Urine Ketones (Stick) mg/dL (NEG) Urine Blood (NEG) Urine Nitrite (NEG) Urine Bilirubin (NEG) Urine Urobilinogen Dipstick mg/dL (0.2 mg/dL) Urine Leukocyte Esterase (NEG) Urine RBC 3-5 /HPF (0-2) Urine WBC 5-10 /HPF (0-4) Urine Squamous Epithelial Cells Few /LPF Urine Bacteria Few /HPF (0-FEW) Urine Mucus Marked /LPF Urine Opiates Screen Neg (NEG) Urine Methadone Screen Neg (NEG) Urine Barbiturates Neg (NEG) Urine Phencyclidine Screen Neg (NEG) Urine Amphetamine/Methamphetamine Neg (NEG) Urine Benzodiazepines Screen Neg (NEG) Urine Cocaine Screen Neg (NEG) Urine Cannabinoids Screen Pos (NEG) Urine Ethyl Alcohol Neg (NEG) Allergies: Coded Allergies: adhesive tape (Verified Allergy, Intermediate, Rash, 11/02/19) Medications: Current Medications Medications (Trade) Dose Ordered Sig/Renee Route PRN Reason Start Time Stop Time Status Last Admin Dose Admin Ondansetron HCl (Zofran) 4 mg 1X ONCE IVP 01/10/20 08:15 01/10/20 08:16 DC 01/10/20 08:08 Sodium Chloride 1,000 ml @ 1,000 mls/hr 1X ONCE IV 01/10/20 08:15 01/10/20 09:14 DC 01/10/20 08:08 Lorazepam (Ativan Inj) 1 mg 1X ONCE IVP 01/10/20 08:15 01/10/20 08:28 DC 01/10/20 08:43 Thiamine HCl 100 mg/Dextrose 51 ml @ 102 mls/hr 1X ONCE IV 01/10/20 08:15 01/10/20 08:44 DC 01/10/20 09:42 Lorazepam (Ativan Inj) 1 mg 1X ONCE IVP 01/10/20 10:00 01/10/20 10:01 DC 01/10/20 10:23 Fentanyl Citrate (Fentanyl 2ml Vial) 50 mcg 1X ONCE IVP 01/10/20 10:00 01/10/20 10:01 DC 01/10/20 10:23 Pantoprazole Sodium (PROTONIX VIAL for IV PUSH) 40 mg 1X ONCE IVP 01/10/20 10:45 01/10/20 10:55 DC 01/10/20 11:29 Sodium Chloride 1,000 ml @ 1,000 mls/hr 1X ONCE IV 01/10/20 11:00 01/10/20 11:59 DC 01/10/20 11:27 Lorazepam (Ativan Inj) 1 mg 1X ONCE IVP 01/10/20 11:00 01/10/20 11:01 DC 01/10/20 11:34 Sodium Chloride 1,000 ml @ 125 mls/hr Q8H IV 01/10/20 11:28 01/11/20 11:27 01/10/20 13:05 Potassium Chloride/Water 100 ml @ 100 mls/hr Q1H IV 01/10/20 13:00 01/10/20 16:59 01/10/20 13:05 Imaging: Imaging: - PE: GEN: uncomfortable, rocking back and forth in bed, has 1:1 sitter HEENT: Atraumatic, PERRL LUNGS: clear anteriorly HEART: tachycardic ABD: quiet BS, soft, tenderness to RUQ EXTREMITY: No edema SKIN: No rashes, no jaundice NEURO/PSYCH: A & O 3, anxious A/P: A/P: Chronic abdominal pain, "hematemesis and melena" - normal Hgb and BUN Alcoholic cirrhosis, +AAT MZ phenotype GERD Cholelithiasis - had surgery eval in the past, suggestion for sobriety prior to cholecystectomy Diverticulosis Psych history +cannabinoids -- Agree w/ PPI. Have seen many times for similar symptoms. Monitor for bleeding, monitor labs. Currently no plans for EGD. JANET STEWART Jan 10, 2020 14:08
[2020-01-10 17:05] VITALS: BP 156/92
[2020-01-10 19:50] VITALS: BP 160/100
[2020-01-10] MEDS ORDERED: HYDROmorphone 2 MG/ML VIAL IV ONE (20:15)
[2020-01-10] MEDS: HYDROmorphone 2 MG/ML VIAL IV PRN ×2 (20:23→23:06)
[2020-01-10 22:21] LABS: HEMATOCRIT 34.3 % (39.0-53.0); HEMOGLOBIN 11.6 g/dL (13.0-17.5); RED BLOOD COUNT 3.49 x10^6/uL (4.30-5.70); RED CELL DISTRIBUTION WIDTH 15.3 % (11.5-14.5); WHITE BLOOD COUNT 3.6 x10^3/uL (4.0-11.0)
[2020-01-10 23:55] VITALS: BP 140/87
[2020-01-11 03:45] VITALS: BP 148/86
[2020-01-11] MEDS: HYDROmorphone 2 MG/ML VIAL IV PRN ×7 (05:45→21:14)
[2020-01-11] MEDS: IV NORMAL SALINE 1000ML BAG 1,000 ML IV SCH ×3 (05:45→21:13)
[2020-01-11 07:00] VITALS: BP 144/70
[2020-01-11] MEDS ORDERED: IV RINGERS,LACTATED 1000ML 1,000 ML IV SCH (07:16)
[2020-01-11 07:28] LABS: BASO % 1 % (0-3); EOS # 0.1 x10^3/uL (0.0-0.7); EOS % 2 % (0-3); HEMATOCRIT 32.2 % (39.0-53.0); LYMPH # 0.8 x10^3/uL (1.0-4.8); LYMPH % 32 % (24-48); MEAN CORPUSCULAR HEMOGLOBIN 34 pg (25-35); MEAN CORPUSCULAR HGB CONC 34 g/dL (31-37); MEAN CORPUSCULAR VOLUME 99 fL (79-100); MONO # 0.2 x10^3/uL (0.0-1.1); MONO % 8 % (0-9); NEUT # 1.4 x10^3/uL (1.8-7.7); NEUT % 58 % (31-73); PLATELET COUNT 36 x10^3/uL (140-400); RED BLOOD COUNT 3.25 x10^6/uL (4.30-5.70); RED CELL DISTRIBUTION WIDTH 15.3 % (11.5-14.5); WHITE BLOOD COUNT 2.5 x10^3/uL (4.0-11.0)
[2020-01-11] MEDS ORDERED: HYDROmorphone 2 MG/ML VIAL IV PRN (07:30)
[2020-01-11] MEDS ORDERED: PROCHLORPERAZINE 10 MG/2 ML VIAL. IV PRN (07:30)
[2020-01-11] MEDS ORDERED: MORPHINE SULFATE 2 MG/ML VIAL. IV PRN (07:30)
[2020-01-11] MEDS ORDERED: fentaNYL PF VIAL 100 MCG/2 ML VIAL IV PRN ×2 (07:30)
[2020-01-11] MEDS ORDERED: LIDOCAINE 1% PF 2 ML VIAL. ID PRN (07:30)
[2020-01-11 07:33] LABS: ALBUMIN 3.1 g/dL (3.4-5.0); ALBUMIN/GLOBULIN RATIO 0.9 (1.0-1.7); CALCIUM 8.3 mg/dL (8.5-10.1); CREATININE 0.7 mg/dL (0.7-1.3); GFR 133.3; POTASSIUM 3.5 mmol/L (3.5-5.1); TOTAL BILIRUBIN 6.1 mg/dL (0.2-1.0); TOTAL PROTEIN 6.5 g/dL (6.4-8.2)
[2020-01-11] MEDS ORDERED: PANTOPRAZOLE IV PUSH 40 MG VIAL. IVP SCH (08:00)
[2020-01-11] MEDS: LORazepam 0.5 MG TABLET PO PRN ×2 (09:06→18:01)
[2020-01-11] MEDS ORDERED: IV RINGERS,LACTATED 1000ML 1,000 ML IV ONE (10:30)
--- NOTE | 2020-01-11 10:32 | NUR ---
SS following for discharge planning. SS reviewed pt chart. Pt is from home and is currently on room air. Pt has history of ETOH. Per pt's RN, pt was cleared in the ER by the PAT team. SS will continue to follow for discharge planning.
--- NOTE | 2020-01-11 10:47 | PDOC ---
PROGRESS NOTES History of Present Illness History of Present Illness VTE Prophylaxis Ordered VTE Prophylaxis Devices: Yes VTE Pharmacological Prophylaxi: Contraindicated Assessment/Plan Assessment/Plan IMPRESSION EtOH abuse - SEVERE Major depression - needs outpatient treatment NONCOMPLIANCE HEMATEMESIS Portal hypertensive gastropathy. Chronic pain Pancytopenia - likely related to liver disease, Epigastric and RUQ PAIN, radiates to back, worse with meals RECENT CT Findings are consistent with cirrhosis and portal vein hypertension including splenomegaly and varices. There is a new finding of multiple hypodense lesions within the liver. The hepatic veins appear narrowed. Therefore this may represent mass effect and could be secondary to multicentric hepatocellular carcinoma in the setting of chronic cirrhosis. 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 Smoker - counseled on cessation Alpha-1 antitrypsin deficiency - MZ mutation - increases his risk of liver disease given his ETOH abuse DJD thc abuse Transaminitis - fits ETOH pattern. Hepatic cirrhosis and findings of portal hypertension , C/W END ORGAN INJURY. INR 1.6 and Bilirubin4.5 Esophageal varices are numerous and more notable in the interval. ON RECENT CT Gallstone lodged at the gallbladder neck, no gallbladder wall thickening - seen by general surgery previously, no indication for surgery Plan: ADMIT GI CONSULT IV PROTONIX rifaximin ETOH cessation EDUCATED ON NEED Wean off opioids and benzos outpatient [facility] follow up POST D/C SERIAL H/H 37 MIN pt exam, chart review, > 50% of time spent with exam, chart review, pt care coordination Vitals Vitals Vital Signs Date Time Temp Pulse Resp B/P (MAP) Pulse Ox O2 Delivery O2 Flow Rate FiO2 01/11/20 10:33 98.3 100 20 100 98.3 01/11/20 10:28 Room Air 01/11/20 07:00 144/70 (94) Physical Exam Physical Exam REMAINS ON O2 General: Alert, Oriented X3, Cooperative, mild distress Heart: Regular rate Lungs: Clear Abdomen: Normal bowel sounds, Soft Extremities: No cyanosis, No edema Skin: No rashes Labs LABS Procedure EGD Indication: "hematemesis" Meds: per anesthesia Findings: E--small, maybe Grade II varices mid/distal esophagus. None with signs of recent or imminent bleeding. Scarring from prior banding. G--Diffuse portal hypertensive gastropathy. D--Normal to second portion. --No blood seen throughout. Meghann. well. IMP: Non-bleeding varices, small. Portal hypertensive gastropathy. REC: Clears til sober. Continue PPI. Stop drinking. Monitor for any meaningful bleeding. MEENA HASTINGS MD Laboratory Tests Test 01/10/20 14:00 01/10/20 22:10 01/11/20 06:32 White Blood Count 4.9 x10^3/uL (4.0-11.0) 3.6 x10^3/uL (4.0-11.0) 2.5 x10^3/uL (4.0-11.0) Red Blood Count 3.78 x10^6/uL (4.30-5.70) 3.49 x10^6/uL (4.30-5.70) 3.25 x10^6/uL (4.30-5.70) Hemoglobin 12.4 g/dL (13.0-17.5) 11.6 g/dL (13.0-17.5) 11.0 g/dL (13.0-17.5) Hematocrit 36.7 % (39.0-53.0) 34.3 % (39.0-53.0) 32.2 % (39.0-53.0) Mean Corpuscular Volume 97 fL (79-100) 98 fL (79-100) 99 fL (79-100) Mean Corpuscular Hemoglobin 33 pg (25-35) 33 pg (25-35) 34 pg (25-35) Mean Corpuscular Hemoglobin Concent 34 g/dL (31-37) 34 g/dL (31-37) 34 g/dL (31-37) Red Cell Distribution Width 15.6 % (11.5-14.5) 15.3 % (11.5-14.5) 15.3 % (11.5-14.5) Platelet Count 47 x10^3/uL (140-400) 39 x10^3/uL (140-400) 36 x10^3/uL (140-400) Neutrophils (%) (Auto) 58 % (31-73) Lymphocytes (%) (Auto) 32 % (24-48) Monocytes (%) (Auto) 8 % (0-9) Eosinophils (%) (Auto) 2 % (0-3) Basophils (%) (Auto) 1 % (0-3) Neutrophils # (Auto) 1.4 x10^3/uL (1.8-7.7) Lymphocytes # (Auto) 0.8 x10^3/uL (1.0-4.8) Monocytes # (Auto) 0.2 x10^3/uL (0.0-1.1) Eosinophils # (Auto) 0.1 x10^3/uL (0.0-0.7) Basophils # (Auto) 0.0 x10^3/uL (0.0-0.2) Sodium Level 138 mmol/L (136-145) Potassium Level 3.5 mmol/L (3.5-5.1) Chloride Level 104 mmol/L (98-107) Carbon Dioxide Level 23 mmol/L (21-32) Anion Gap 11 (6-14) Blood Urea Nitrogen 10 mg/dL (8-26) Creatinine 0.7 mg/dL (0.7-1.3) Estimated GFR (Cockcroft-Gault) 133.3 BUN/Creatinine Ratio 14 (6-20) Glucose Level 96 mg/dL (70-99) Calcium Level 8.3 mg/dL (8.5-10.1) Total Bilirubin 6.1 mg/dL (0.2-1.0) Aspartate Amino Transf (AST/SGOT) 203 U/L (15-37) Alanine Aminotransferase (ALT/SGPT) 102 U/L (16-63) Alkaline Phosphatase 203 U/L (46-116) Total Protein 6.5 g/dL (6.4-8.2) Albumin 3.1 g/dL (3.4-5.0) Albumin/Globulin Ratio 0.9 (1.0-1.7) Assessment and Plan Assessmemt and Plan Problems Medical Problems: (1) Alcohol withdrawal Status: Acute (2) Thrombocytopenia Status: Chronic Comment Review of Relevant I have reviewed the following items mc (where applicable) has been applied. Labs Laboratory Tests Test 01/10/20 07:53 01/10/20 09:14 01/10/20 09:56 01/10/20 14:00 White Blood Count 6.5 x10^3/uL (4.0-11.0) 4.9 x10^3/uL (4.0-11.0) Red Blood Count 4.15 x10^6/uL (4.30-5.70) 3.78 x10^6/uL (4.30-5.70) Hemoglobin 13.8 g/dL (13.0-17.5) 12.4 g/dL (13.0-17.5) Hematocrit 40.1 % (39.0-53.0) 36.7 % (39.0-53.0) Mean Corpuscular Volume 97 fL (79-100) 97 fL (79-100) Mean Corpuscular Hemoglobin 33 pg (25-35) 33 pg (25-35) Mean Corpuscular Hemoglobin Concent 34 g/dL (31-37) 34 g/dL (31-37) Red Cell Distribution Width 14.9 % (11.5-14.5) 15.6 % (11.5-14.5) Platelet Count 73 x10^3/uL (140-400) 47 x10^3/uL (140-400) Neutrophils (%) (Auto) 75 % (31-73) Lymphocytes (%) (Auto) 19 % (24-48) Monocytes (%) (Auto) 5 % (0-9) Eosinophils (%) (Auto) 0 % (0-3) Basophils (%) (Auto) 1 % (0-3) Neutrophils # (Auto) 4.9 x10^3/uL (1.8-7.7) Lymphocytes # (Auto) 1.2 x10^3/uL (1.0-4.8) Monocytes # (Auto) 0.3 x10^3/uL (0.0-1.1) Eosinophils # (Auto) 0.0 x10^3/uL (0.0-0.7) Basophils # (Auto) 0.0 x10^3/uL (0.0-0.2) Sodium Level 139 mmol/L (136-145) Potassium Level 3.2 mmol/L (3.5-5.1) Chloride Level 101 mmol/L (98-107) Carbon Dioxide Level 23 mmol/L (21-32) Anion Gap 15 (6-14) Blood Urea Nitrogen 11 mg/dL (8-26) Creatinine 0.8 mg/dL (0.7-1.3) Estimated GFR (Cockcroft-Gault) 114.3 Glucose Level 133 mg/dL (70-99) Calcium Level 9.4 mg/dL (8.5-10.1) Total Bilirubin 4.6 mg/dL (0.2-1.0) Direct Bilirubin 2.5 mg/dL (0.0-0.2) Aspartate Amino Transf (AST/SGOT) 282 U/L (15-37) Alanine Aminotransferase (ALT/SGPT) 134 U/L (16-63) Alkaline Phosphatase 256 U/L (46-116) Total Protein 7.9 g/dL (6.4-8.2) Albumin 3.8 g/dL (3.4-5.0) Ethyl Alcohol Level < 10 mg/dL (0-10) Gastric Fluid Occult Blood Positive (NEG) Urine Collection Type Void Urine Color [place] Urine Clarity Clear Urine pH Urine Specific [place] Urine Protein mg/dL (NEG-TRACE) Urine Glucose (UA) mg/dL (NEG) Urine Ketones (Stick) mg/dL (NEG) Urine Blood (NEG) Urine Nitrite (NEG) Urine Bilirubin (NEG) Urine Urobilinogen Dipstick mg/dL (0.2 mg/dL) Urine Leukocyte Esterase (NEG) Urine RBC 3-5 /HPF (0-2) Urine WBC 5-10 /HPF (0-4) Urine Squamous Epithelial Cells Few /LPF Urine Bacteria Few /HPF (0-FEW) Urine Mucus Marked /LPF Urine Opiates Screen Neg (NEG) Urine Methadone Screen Neg (NEG) Urine Barbiturates Neg (NEG) Urine Phencyclidine Screen Neg (NEG) Urine Amphetamine/Methamphetamine Neg (NEG) Urine Benzodiazepines Screen Neg (NEG) Urine Cocaine Screen Neg (NEG) Urine Cannabinoids Screen Pos (NEG) Urine Ethyl Alcohol Neg (NEG) Test 01/10/20 22:10 01/11/20 06:32 White Blood Count 3.6 x10^3/uL (4.0-11.0) 2.5 x10^3/uL (4.0-11.0) Red Blood Count 3.49 x10^6/uL (4.30-5.70) 3.25 x10^6/uL (4.30-5.70) Hemoglobin 11.6 g/dL (13.0-17.5) 11.0 g/dL (13.0-17.5) Hematocrit 34.3 % (39.0-53.0) 32.2 % (39.0-53.0) Mean Corpuscular Volume 98 fL (79-100) 99 fL (79-100) Mean Corpuscular Hemoglobin 33 pg (25-35) 34 pg (25-35) Mean Corpuscular Hemoglobin Concent 34 g/dL (31-37) 34 g/dL (31-37) Red Cell Distribution Width 15.3 % (11.5-14.5) 15.3 % (11.5-14.5) Platelet Count 39 x10^3/uL (140-400) 36 x10^3/uL (140-400) Neutrophils (%) (Auto) 58 % (31-73) Lymphocytes (%) (Auto) 32 % (24-48) Monocytes (%) (Auto) 8 % (0-9) Eosinophils (%) (Auto) 2 % (0-3) Basophils (%) (Auto) 1 % (0-3) Neutrophils # (Auto) 1.4 x10^3/uL (1.8-7.7) Lymphocytes # (Auto) 0.8 x10^3/uL (1.0-4.8) Monocytes # (Auto) 0.2 x10^3/uL (0.0-1.1) Eosinophils # (Auto) 0.1 x10^3/uL (0.0-0.7) Basophils # (Auto) 0.0 x10^3/uL (0.0-0.2) Sodium Level 138 mmol/L (136-145) Potassium Level 3.5 mmol/L (3.5-5.1) Chloride Level 104 mmol/L (98-107) Carbon Dioxide Level 23 mmol/L (21-32) Anion Gap 11 (6-14) Blood Urea Nitrogen 10 mg/dL (8-26) Creatinine 0.7 mg/dL (0.7-1.3) Estimated GFR (Cockcroft-Gault) 133.3 BUN/Creatinine Ratio 14 (6-20) Glucose Level 96 mg/dL (70-99) Calcium Level 8.3 mg/dL (8.5-10.1) Total Bilirubin 6.1 mg/dL (0.2-1.0) Aspartate Amino Transf (AST/SGOT) 203 U/L (15-37) Alanine Aminotransferase (ALT/SGPT) 102 U/L (16-63) Alkaline Phosphatase 203 U/L (46-116) Total Protein 6.5 g/dL (6.4-8.2) Albumin 3.1 g/dL (3.4-5.0) Albumin/Globulin Ratio 0.9 (1.0-1.7) Laboratory Tests Test 01/10/20 14:00 01/10/20 22:10 01/11/20 06:32 White Blood Count 4.9 x10^3/uL (4.0-11.0) 3.6 x10^3/uL (4.0-11.0) 2.5 x10^3/uL (4.0-11.0) Red Blood Count 3.78 x10^6/uL (4.30-5.70) 3.49 x10^6/uL (4.30-5.70) 3.25 x10^6/uL (4.30-5.70) Hemoglobin 12.4 g/dL (13.0-17.5) 11.6 g/dL (13.0-17.5) 11.0 g/dL (13.0-17.5) Hematocrit 36.7 % (39.0-53.0) 34.3 % (39.0-53.0) 32.2 % (39.0-53.0) Mean Corpuscular Volume 97 fL (79-100) 98 fL (79-100) 99 fL (79-100) Mean Corpuscular Hemoglobin 33 pg (25-35) 33 pg (25-35) 34 pg (25-35) Mean Corpuscular Hemoglobin Concent 34 g/dL (31-37) 34 g/dL (31-37) 34 g/dL (31-37) Red Cell Distribution Width 15.6 % (11.5-14.5) 15.3 % (11.5-14.5) 15.3 % (11.5-14.5) Platelet Count 47 x10^3/uL (140-400) 39 x10^3/uL (140-400) 36 x10^3/uL (140-400) Neutrophils (%) (Auto) 58 % (31-73) Lymphocytes (%) (Auto) 32 % (24-48) Monocytes (%) (Auto) 8 % (0-9) Eosinophils (%) (Auto) 2 % (0-3) Basophils (%) (Auto) 1 % (0-3) Neutrophils # (Auto) 1.4 x10^3/uL (1.8-7.7) Lymphocytes # (Auto) 0.8 x10^3/uL (1.0-4.8) Monocytes # (Auto) 0.2 x10^3/uL (0.0-1.1) Eosinophils # (Auto) 0.1 x10^3/uL (0.0-0.7) Basophils # (Auto) 0.0 x10^3/uL (0.0-0.2) Sodium Level 138 mmol/L (136-145) Potassium Level 3.5 mmol/L (3.5-5.1) Chloride Level 104 mmol/L (98-107) Carbon Dioxide Level 23 mmol/L (21-32) Anion Gap 11 (6-14) Blood Urea Nitrogen 10 mg/dL (8-26) Creatinine 0.7 mg/dL (0.7-1.3) Estimated GFR (Cockcroft-Gault) 133.3 BUN/Creatinine Ratio 14 (6-20) Glucose Level 96 mg/dL (70-99) Calcium Level 8.3 mg/dL (8.5-10.1) Total Bilirubin 6.1 mg/dL (0.2-1.0) Aspartate Amino Transf (AST/SGOT) 203 U/L (15-37) Alanine Aminotransferase (ALT/SGPT) 102 U/L (16-63) Alkaline Phosphatase 203 U/L (46-116) Total Protein 6.5 g/dL (6.4-8.2) Albumin 3.1 g/dL (3.4-5.0) Albumin/Globulin Ratio 0.9 (1.0-1.7) Medications Current Medications Ondansetron HCl (Zofran) 4 mg STK-MED ONCE .ROUTE ; Start 01/10/20 at 08:02; Stop 01/10/20 at 08:03; Status DC Ondansetron HCl (Zofran) 4 mg 1X ONCE IVP Last administered on 01/10/20at 08:08; Start 01/10/20 at 08:15; Stop 01/10/20 at 08:16; Status DC Sodium Chloride 1,000 ml @ 1,000 mls/hr 1X ONCE IV Last administered on 01/10/20at 08:08; Start 01/10/20 at 08:15; Stop 01/10/20 at 09:14; Status DC Lorazepam (Ativan Inj) 1 mg 1X ONCE IVP Last administered on 01/10/20at 08:43; Start 01/10/20 at 08:15; Stop 01/10/20 at 08:28; Status DC Thiamine HCl 100 mg/Dextrose 51 ml @ 102 mls/hr 1X ONCE IV Last administered on 01/10/20at 09:42; Start 01/10/20 at 08:15; Stop 01/10/20 at 08:44; Status DC Lorazepam (Ativan Inj) 1 mg 1X ONCE IVP Last administered on 01/10/20at 10:23; Start 01/10/20 at 10:00; Stop 01/10/20 at 10:01; Status DC Fentanyl Citrate (Fentanyl 2ml Vial) 50 mcg 1X ONCE IVP Last administered on 01/10/20at 10:23; Start 01/10/20 at 10:00; Stop 01/10/20 at 10:01; Status DC Pantoprazole Sodium (PROTONIX VIAL for IV PUSH) 40 mg 1X ONCE IVP Last administered on 01/10/20at 11:29; Start 01/10/20 at 10:45; Stop 01/10/20 at 10:55; Status DC Sodium Chloride 1,000 ml @ 1,000 mls/hr 1X ONCE IV Last administered on 01/10/20at 11:27; Start 01/10/20 at 11:00; Stop 01/10/20 at 11:59; Status DC Lorazepam (Ativan Inj) 1 mg 1X ONCE IVP Last administered on 01/10/20at 11:34; Start 01/10/20 at 11:00; Stop 01/10/20 at 11:01; Status DC Ondansetron HCl (Zofran) 4 mg PRN Q8HRS PRN IV NAUSEA/VOMITING; Start 01/10/20 at 11:30; Stop 01/10/20 at 13:47; Status DC Sodium Chloride 1,000 ml @ 125 mls/hr Q8H IV Last administered on 01/11/20at 05:45; Start 01/10/20 at 11:28; Stop 01/11/20 at 11:27 Lorazepam (Ativan Inj) 1 mg Q2HR PRN IVP ALCOHOL WITHDRAWAL SYMPTOMS Last administered on 01/10/20at 18:24; Start 01/10/20 at 11:30 Potassium Chloride/Water 100 ml @ 100 mls/hr Q1H IV ; Start 01/10/20 at 13:00; Stop 01/10/20 at 14:59; Status Cancel Pantoprazole Sodium (PROTONIX VIAL for IV PUSH) 40 mg DAILY08 IVP Last administered on 01/11/20at 08:59; Start 01/11/20 at 08:00 Potassium Chloride/Water 100 ml @ 100 mls/hr Q1H IV Last administered on 01/10/20at 18:27; Start 01/10/20 at 13:00; Stop 01/10/20 at 16:59; Status DC Morphine Sulfate (Morphine Sulfate) 4 mg 1X ONCE IV Last administered on 01/10/20at 14:00; Start 01/10/20 at 13:15; Stop 01/10/20 at 13:24; Status DC Sodium Chloride (Normal Saline Flush) 3 ml QSHIFT PRN IV AFTER MEDS AND BLOOD DRAWS; Start 01/10/20 at 13:15 Sodium Chloride 1,000 ml @ 100 mls/hr Q10H IV ; Start 01/10/20 at 13:13 Ondansetron HCl (Zofran) 4 mg PRN Q4HRS PRN IV NAUSEA/VOMITING; Start 01/10/20 at 13:15 Acetaminophen (Tylenol Supp) 650 mg PRN Q4HRS PRN IA TEMP OVER 100.4F OR MILD PAIN; Start 01/10/20 at 13:15 Clonidine HCl (Catapres) 0.1 mg PRN Q6HRS PRN PO SBP>160 OR DBP>90; Start 01/10/20 at 13:15 Docusate Sodium (Colace) 100 mg PRN BID PRN PO CONSTIPATION; Start 01/10/20 at 13:15 Albuterol Sulfate (Ventolin Neb Soln) 2.5 mg PRN Q4HRS PRN NEB SHORTNESS OF BREATH; Start 01/10/20 at 13:15 Guaifenesin (Robitussin) 200 mg PRN Q4HRS PRN PO COUGH; Start 01/10/20 at 13:15 Lorazepam (Ativan) 0.5 mg PRN Q4HRS PRN PO ANXIETY / AGITATION Last administered on 01/11/20at 09:06; Start 01/10/20 at 13:15 Lorazepam (Ativan Inj) 2 mg PRN Q4HRS PRN IV ANXIETY / AGITATION Last administered on 01/11/20at 06:35; Start 01/10/20 at 13:15 Hydromorphone HCl (Dilaudid) 0.5 mg PRN Q2HR ONCE IV ; Start 01/10/20 at 20:15; Stop 01/10/20 at 20:16; Status Cancel Hydromorphone HCl (Dilaudid) 0.5 mg PRN Q2HRS PRN IV Pain Last administered on 01/11/20at 08:59; Start 01/10/20 at 20:15 Fentanyl Citrate (Fentanyl 2ml Vial) 25 mcg PRN Q5MIN PRN IV MILD PAIN 1-3; S tart 01/11/20 at 07:30; Stop 01/12/20 at 07:29 Fentanyl Citrate (Fentanyl 2ml Vial) 50 mcg PRN Q5MIN PRN IV MODERATE TO SEVERE PAIN; Start 01/11/20 at 07:30; Stop 01/12/20 at 07:29 Morphine Sulfate (Morphine Sulfate) 1 mg PRN Q10MIN PRN IV SEVERE PAIN 7-10; Start 01/11/20 at 07:30; Stop 01/12/20 at 07:29 Ringer's Solution 1,000 ml @ 30 mls/hr Q24H IV Last administered on 01/11/20at 10:37; Start 01/11/20 at 07:16; Stop 01/11/20 at 19:15 Lidocaine HCl (Xylocaine-Mpf 1% 2ml Vial) 2 ml 1X PRN PRN ID IV START; Start 01/11/20 at 07:30; Stop 01/12/20 at 07:29 Hydromorphone HCl (Dilaudid) 0.5 mg PRN Q10MIN PRN IV SEV PAIN, Second choice; Start 01/11/20 at 07:30; Stop 01/12/20 at 07:29 Prochlorperazine Edisylate (Compazine) 5 mg PACU PRN PRN IV NAUSEA, MRX1; St art 01/11/20 at 07:30; Stop 01/12/20 at 07:29 Ringer's Solution 1,000 ml @ 75 mls/hr 1X ONCE IV ; Start 01/11/20 at 10:30; Stop 01/11/20 at 23:49 Active Scripts Active Benztropine Mesylate 0.5 Mg Tablet 1 Tab PO BID 30 Days Dilaudid (Hydromorphone Hcl) 2 Mg Tablet 2 Mg PO PRN Q8HRS PRN 6 Days Geodon (Ziprasidone Hcl) 20 Mg Capsule 20 Mg PO BID 30 Days Trazodone Hcl 100 Mg Tablet 100 Mg PO QHS 30 Days Catapres (Clonidine Hcl) 0.1 Mg Tablet 0.1 Mg PO PRN Q1HR PRN 7 Days Can take for withdrawal symptoms Xifaxan (Rifaximin) 550 Mg Tablet 550 Mg PO Q12HR 30 Days Lactulose 20 Gm/30 Ml Solution 20 Gm PO TID 30 Days Prazosin Hcl 1 Mg Capsule 1 Cap PO QHS 30 Days Pantoprazole Sodium (Pantoprazole Sodium) 40 Mg Tablet.dr 40 Mg PO DAILYAC Multivitamins (Multivitamin) 1 Each Tablet 1 Tab PO DAILY Folic Acid 1 Mg Tablet 1 Tab PO DAILY Vitamin B-1 (Thiamine Hcl) 100 Mg Tablet 100 Mg PO DAILY 30 Days Feosol (Ferrous Sulfate) 325 Mg Tablet 325 Mg PO DAILYWBKFT 30 Days Reported Zyprexa (Olanzapine) 5 Mg Tablet 1 Tab PO QHS Hydroxyzine Hcl 25 Mg Tablet 3 Tab PO TID Vitals/I & O Vital Sign - Last 24 Hours 01/10/20 01/10/20 01/10/20 01/10/20 11:15 11:45 12:15 12:45 Pulse 143 118 122 136 Resp 20 24 18 24 B/P (MAP) 160/97 (118) 136/71 (92) 150/99 (116) 173/100 (124) Pulse Ox 98 96 96 97 O2 Delivery Room Air Room Air Room Air Room Air 01/10/20 01/10/20 01/10/20 01/10/20 13:21 13:45 14:00 14:15 Pulse 137 128 116 Resp 34 24 20 B/P (MAP) 155/102 (119) 163/86 (111) 154/96 (115) Pulse Ox 97 98 95 O2 Delivery Room Air Room Air Room Air Room Air 01/10/20 01/10/20 01/10/20 01/10/20 14:45 15:15 17:05 19:50 Temp 98.1 97.8 98.1 97.8 Pulse 116 120 125 121 Resp 20 18 20 B/P (MAP) 151/99 (116) 141/93 (109) 156/92 (113) 160/100 (120) Pulse Ox 96 95 98 95 O2 Delivery Room Air Room Air Room Air Room Air 01/10/20 01/10/20 01/11/20 01/11/20 20:20 23:55 03:45 05:45 Temp 98.4 98.3 98.4 98.3 Pulse 105 110 Resp 20 20 B/P (MAP) 140/87 (104) 148/86 (106) Pulse Ox 90 94 O2 Delivery Room Air Room Air Room Air Room Air 01/11/20 01/11/20 01/11/20 01/11/20 06:28 07:00 08:59 10:28 Temp 98.3 98.3 Pulse 104 Resp 18 B/P (MAP) 144/70 (94) Pulse Ox 93 O2 Delivery Room Air Room Air Room Air Room Air 01/11/20 10:33 Temp 98.3 98.3 Pulse 100 Resp 20 Pulse Ox 100 Intake and Output 01/10/20 01/10/20 01/11/20 15:00 23:00 07:00 Intake Total 2151 ml 450 ml 0 ml Balance 2151 ml 450 ml 0 ml KORY CRAIG MD Jan 11, 2020 10:47
[2020-01-11] MEDS ORDERED: PROPOFOL 40 ML IV ONE (10:58)
[2020-01-11] MEDS ORDERED: LIDOCAINE 2% PF 5 ML VIAL. ONE (10:58)
--- NOTE | 2020-01-11 11:11 | PDOC4 ---
PROCEDURE Procedure EGD Indication: "hematemesis" Meds: per anesthesia Findings: E--small, maybe Grade II varices mid/distal esophagus. None with signs of recent or imminent bleeding. Scarring from prior banding. G--Diffuse portal hypertensive gastropathy. D--Normal to second portion. --No blood seen throughout. Meghann. well. IMP: Non-bleeding varices, small. Portal hypertensive gastropathy. REC: Clears til sober. Continue PPI. Stop drinking. Monitor for any meaningful bleeding. MEENA HASTINGS MD Jan 11, 2020 11:11
[2020-01-11 13:58] LABS: HEMOGLOBIN 11.1 g/dL (13.0-17.5); RED BLOOD COUNT 3.32 x10^6/uL (4.30-5.70); RED CELL DISTRIBUTION WIDTH 15.4 % (11.5-14.5); WHITE BLOOD COUNT 2.4 x10^3/uL (4.0-11.0)
[2020-01-11 14:08] LABS: PROTHROMBIN TIME PATIENT 19.2 SEC (11.7-14.0)
[2020-01-11 15:00] VITALS: BP 165/86
[2020-01-11 19:00] VITALS: BP 145/85
[2020-01-11 22:39] LABS: HEMATOCRIT 31.5 % (39.0-53.0); HEMOGLOBIN 10.6 g/dL (13.0-17.5); RED BLOOD COUNT 3.14 x10^6/uL (4.30-5.70); RED CELL DISTRIBUTION WIDTH 15.6 % (11.5-14.5); WHITE BLOOD COUNT 2.3 x10^3/uL (4.0-11.0)
[2020-01-12] MEDS: HYDROmorphone 2 MG/ML VIAL IV PRN ×8 (02:15→21:51)
[2020-01-12 03:58] VITALS: BP 135/89
[2020-01-12 06:12] LABS: HEMATOCRIT 33.2 % (39.0-53.0); RED BLOOD COUNT 3.29 x10^6/uL (4.30-5.70); RED CELL DISTRIBUTION WIDTH 16.1 % (11.5-14.5); WHITE BLOOD COUNT 2.2 x10^3/uL (4.0-11.0)
[2020-01-12] MEDS: IV NORMAL SALINE 1000ML BAG 1,000 ML IV SCH ×2 (06:23→16:16)
[2020-01-12 07:30] VITALS: BP 149/86
[2020-01-12] MEDS: PANTOPRAZOLE 40 MG TABLET.DR. PO SCH (08:47)
--- NOTE | 2020-01-12 09:28 | PDOC ---
PROGRESS NOTES History of Present Illness History of Present Illness VTE Prophylaxis Ordered VTE Prophylaxis Devices: Yes VTE Pharmacological Prophylaxi: Contraindicated Assessment/Plan Assessment/Plan IMPRESSION EtOH abuse - SEVERE Major depression - needs outpatient treatment NONCOMPLIANCE HEMATEMESIS Portal hypertensive gastropathy. Chronic pain Pancytopenia - likely related to liver disease, Epigastric and RUQ PAIN, radiates to back, worse with meals RECENT CT Findings are consistent with cirrhosis and portal vein hypertension including splenomegaly and varices. There is a new finding of multiple hypodense lesions within the liver. The hepatic veins appear narrowed. Therefore this may represent mass effect and could be secondary to multicentric hepatocellular carcinoma in the setting of chronic cirrhosis. 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 Smoker - counseled on cessation Alpha-1 antitrypsin deficiency - MZ mutation - increases his risk of liver disease given his ETOH abuse DJD thc abuse Transaminitis - fits ETOH pattern. Hepatic cirrhosis and findings of portal hypertension , C/W END ORGAN INJURY. INR 1.6 and Bilirubin4.5 Esophageal varices are numerous and more notable in the interval. ON RECENT CT Gallstone lodged at the gallbladder neck, no gallbladder wall thickening - seen by general surgery previously, no indication for surgery Plan: ADMIT GI CONSULT IV PROTONIX rifaximin ETOH cessation EDUCATED ON NEED Wean off opioids and benzos outpatient [facility] follow up POST D/C SERIAL H/H 01/12 Still with tremor, pain, slow to improve 27 MIN pt exam, chart review, > 50% of time spent with exam, chart review, pt care coordination Vitals Vitals Vital Signs Date Time Temp Pulse Resp B/P (MAP) Pulse Ox O2 Delivery O2 Flow Rate FiO2 01/12/20 08:00 Room Air 01/12/20 07:30 98.8 112 18 149/86 (107) 95 98.8 01/11/20 18:02 2.0 Physical Exam Physical Exam REMAINS ON O2 General: Alert, Oriented X3, Cooperative, mild distress Heart: Regular rate Lungs: Clear Abdomen: Normal bowel sounds, Soft Extremities: No cyanosis, No edema Skin: No rashes Labs LABS Laboratory Tests Test 01/11/20 13:45 01/11/20 22:15 01/12/20 05:35 White Blood Count 2.4 x10^3/uL (4.0-11.0) 2.3 x10^3/uL (4.0-11.0) 2.2 x10^3/uL (4.0-11.0) Red Blood Count 3.32 x10^6/uL (4.30-5.70) 3.14 x10^6/uL (4.30-5.70) 3.29 x10^6/uL (4.30-5.70) Hemoglobin 11.1 g/dL (13.0-17.5) 10.6 g/dL (13.0-17.5) 11.0 g/dL (13.0-17.5) Hematocrit 33.0 % (39.0-53.0) 31.5 % (39.0-53.0) 33.2 % (39.0-53.0) Mean Corpuscular Volume 99 fL (79-100) 100 fL (79-100) 101 fL (79-100) Mean Corpuscular Hemoglobin 33 pg (25-35) 34 pg (25-35) 34 pg (25-35) Mean Corpuscular Hemoglobin Concent 34 g/dL (31-37) 34 g/dL (31-37) 33 g/dL (31-37) Red Cell Distribution Width 15.4 % (11.5-14.5) 15.6 % (11.5-14.5) 16.1 % (11.5-14.5) Platelet Count 32 x10^3/uL (140-400) 30 x10^3/uL (140-400) 32 x10^3/uL (140-400) Prothrombin Time 19.2 SEC (11.7-14.0) Prothromb Time International Ratio 1.6 (0.8-1.1) Assessment and Plan Assessmemt and Plan Problems Medical Problems: (1) Alcohol withdrawal Status: Acute (2) Thrombocytopenia Status: Chronic Comment Review of Relevant I have reviewed the following items mc (where applicable) has been applied. Labs Laboratory Tests Test 01/10/20 09:56 01/10/20 14:00 01/10/20 22:10 01/11/20 06:32 Urine Collection Type Void Urine Color Isabela Urine Clarity Clear Urine pH Urine Specific [place] Urine Protein mg/dL (NEG-TRACE) Urine Glucose (UA) mg/dL (NEG) Urine Ketones (Stick) mg/dL (NEG) Urine Blood (NEG) Urine Nitrite (NEG) Urine Bilirubin (NEG) Urine Urobilinogen Dipstick mg/dL (0.2 mg/dL) Urine Leukocyte Esterase (NEG) Urine RBC 3-5 /HPF (0-2) Urine WBC 5-10 /HPF (0-4) Urine Squamous Epithelial Cells Few /LPF Urine Bacteria Few /HPF (0-FEW) Urine Mucus Marked /LPF Urine Opiates Screen Neg (NEG) Urine Methadone Screen Neg (NEG) Urine Barbiturates Neg (NEG) Urine Phencyclidine Screen Neg (NEG) Urine Amphetamine/Methamphetamine Neg (NEG) Urine Benzodiazepines Screen Neg (NEG) Urine Cocaine Screen Neg (NEG) Urine Cannabinoids Screen Pos (NEG) Urine Ethyl Alcohol Neg (NEG) White Blood Count 4.9 x10^3/uL (4.0-11.0) 3.6 x10^3/uL (4.0-11.0) 2.5 x10^3/uL (4.0-11.0) Red Blood Count 3.78 x10^6/uL (4.30-5.70) 3.49 x10^6/uL (4.30-5.70) 3.25 x10^6/uL (4.30-5.70) Hemoglobin 12.4 g/dL (13.0-17.5) 11.6 g/dL (13.0-17.5) 11.0 g/dL (13.0-17.5) Hematocrit 36.7 % (39.0-53.0) 34.3 % (39.0-53.0) 32.2 % (39.0-53.0) Mean Corpuscular Volume 97 fL (79-100) 98 fL (79-100) 99 fL (79-100) Mean Corpuscular Hemoglobin 33 pg (25-35) 33 pg (25-35) 34 pg (25-35) Mean Corpuscular Hemoglobin Concent 34 g/dL (31-37) 34 g/dL (31-37) 34 g/dL (31-37) Red Cell Distribution Width 15.6 % (11.5-14.5) 15.3 % (11.5-14.5) 15.3 % (11.5-14.5) Platelet Count 47 x10^3/uL (140-400) 39 x10^3/uL (140-400) 36 x10^3/uL (140-400) Neutrophils (%) (Auto) 58 % (31-73) Lymphocytes (%) (Auto) 32 % (24-48) Monocytes (%) (Auto) 8 % (0-9) Eosinophils (%) (Auto) 2 % (0-3) Basophils (%) (Auto) 1 % (0-3) Neutrophils # (Auto) 1.4 x10^3/uL (1.8-7.7) Lymphocytes # (Auto) 0.8 x10^3/uL (1.0-4.8) Monocytes # (Auto) 0.2 x10^3/uL (0.0-1.1) Eosinophils # (Auto) 0.1 x10^3/uL (0.0-0.7) Basophils # (Auto) 0.0 x10^3/uL (0.0-0.2) Sodium Level 138 mmol/L (136-145) Potassium Level 3.5 mmol/L (3.5-5.1) Chloride Level 104 mmol/L (98-107) Carbon Dioxide Level 23 mmol/L (21-32) Anion Gap 11 (6-14) Blood Urea Nitrogen 10 mg/dL (8-26) Creatinine 0.7 mg/dL (0.7-1.3) Estimated GFR (Cockcroft-Gault) 133.3 BUN/Creatinine Ratio 14 (6-20) Glucose Level 96 mg/dL (70-99) Calcium Level 8.3 mg/dL (8.5-10.1) Total Bilirubin 6.1 mg/dL (0.2-1.0) Aspartate Amino Transf (AST/SGOT) 203 U/L (15-37) Alanine Aminotransferase (ALT/SGPT) 102 U/L (16-63) Alkaline Phosphatase 203 U/L (46-116) Total Protein 6.5 g/dL (6.4-8.2) Albumin 3.1 g/dL (3.4-5.0) Albumin/Globulin Ratio 0.9 (1.0-1.7) Test 01/11/20 13:45 01/11/20 22:15 01/12/20 05:35 White Blood Count 2.4 x10^3/uL (4.0-11.0) 2.3 x10^3/uL (4.0-11.0) 2.2 x10^3/uL (4.0-11.0) Red Blood Count 3.32 x10^6/uL (4.30-5.70) 3.14 x10^6/uL (4.30-5.70) 3.29 x10^6/uL (4.30-5.70) Hemoglobin 11.1 g/dL (13.0-17.5) 10.6 g/dL (13.0-17.5) 11.0 g/dL (13.0-17.5) Hematocrit 33.0 % (39.0-53.0) 31.5 % (39.0-53.0) 33.2 % (39.0-53.0) Mean Corpuscular Volume 99 fL (79-100) 100 fL (79-100) 101 fL (79-100) Mean Corpuscular Hemoglobin 33 pg (25-35) 34 pg (25-35) 34 pg (25-35) Mean Corpuscular Hemoglobin Concent 34 g/dL (31-37) 34 g/dL (31-37) 33 g/dL (31-37) Red Cell Distribution Width 15.4 % (11.5-14.5) 15.6 % (11.5-14.5) 16.1 % (11.5-14.5) Platelet Count 32 x10^3/uL (140-400) 30 x10^3/uL (140-400) 32 x10^3/uL (140-400) Prothrombin Time 19.2 SEC (11.7-14.0) Prothromb Time International Ratio 1.6 (0.8-1.1) Laboratory Tests Test 01/11/20 13:45 01/11/20 22:15 01/12/20 05:35 White Blood Count 2.4 x10^3/uL (4.0-11.0) 2.3 x10^3/uL (4.0-11.0) 2.2 x10^3/uL (4.0-11.0) Red Blood Count 3.32 x10^6/uL (4.30-5.70) 3.14 x10^6/uL (4.30-5.70) 3.29 x10^6/uL (4.30-5.70) Hemoglobin 11.1 g/dL (13.0-17.5) 10.6 g/dL (13.0-17.5) 11.0 g/dL (13.0-17.5) Hematocrit 33.0 % (39.0-53.0) 31.5 % (39.0-53.0) 33.2 % (39.0-53.0) Mean Corpuscular Volume 99 fL (79-100) 100 fL (79-100) 101 fL (79-100) Mean Corpuscular Hemoglobin 33 pg (25-35) 34 pg (25-35) 34 pg (25-35) Mean Corpuscular Hemoglobin Concent 34 g/dL (31-37) 34 g/dL (31-37) 33 g/dL (31-37) Red Cell Distribution Width 15.4 % (11.5-14.5) 15.6 % (11.5-14.5) 16.1 % (11.5-14.5) Platelet Count 32 x10^3/uL (140-400) 30 x10^3/uL (140-400) 32 x10^3/uL (140-400) Prothrombin Time 19.2 SEC (11.7-14.0) Prothromb Time International Ratio 1.6 (0.8-1.1) Microbiology 01/10/20 Urine Culture - Final, Complete 01/10/20 Urine Culture Result 1 (ERICK) - Final, Complete Medications Current Medications Ondansetron HCl (Zofran) 4 mg STK-MED ONCE .ROUTE ; Start 01/10/20 at 08:02; Stop 01/10/20 at 08:03; Status DC Ondansetron HCl (Zofran) 4 mg 1X ONCE IVP Last administered on 01/10/20at 08:08; Start 01/10/20 at 08:15; Stop 01/10/20 at 08:16; Status DC Sodium Chloride 1,000 ml @ 1,000 mls/hr 1X ONCE IV Last administered on 01/10/20at 08:08; Start 01/10/20 at 08:15; Stop 01/10/20 at 09:14; Status DC Lorazepam (Ativan Inj) 1 mg 1X ONCE IVP Last administered on 01/10/20at 08:43; Start 01/10/20 at 08:15; Stop 01/10/20 at 08:28; Status DC Thiamine HCl 100 mg/Dextrose 51 ml @ 102 mls/hr 1X ONCE IV Last administered on 01/10/20at 09:42; Start 01/10/20 at 08:15; Stop 01/10/20 at 08:44; Status DC Lorazepam (Ativan Inj) 1 mg 1X ONCE IVP Last administered on 01/10/20at 10:23; Start 01/10/20 at 10:00; Stop 01/10/20 at 10:01; Status DC Fentanyl Citrate (Fentanyl 2ml Vial) 50 mcg 1X ONCE IVP Last administered on 01/10/20at 10:23; Start 01/10/20 at 10:00; Stop 01/10/20 at 10:01; Status DC Pantoprazole Sodium (PROTONIX VIAL for IV PUSH) 40 mg 1X ONCE IVP Last administered on 01/10/20at 11:29; Start 01/10/20 at 10:45; Stop 01/10/20 at 10:55; Status DC Sodium Chloride 1,000 ml @ 1,000 mls/hr 1X ONCE IV Last administered on 01/10/20at 11:27; Start 01/10/20 at 11:00; Stop 01/10/20 at 11:59; Status DC Lorazepam (Ativan Inj) 1 mg 1X ONCE IVP Last administered on 01/10/20at 11:34; Start 01/10/20 at 11:00; Stop 01/10/20 at 11:01; Status DC Ondansetron HCl (Zofran) 4 mg PRN Q8HRS PRN IV NAUSEA/VOMITING; Start 01/10/20 at 11:30; Stop 01/10/20 at 13:47; Status DC Sodium Chloride 1,000 ml @ 125 mls/hr Q8H IV Last administered on 01/11/20at 05:45; Start 01/10/20 at 11:28; Stop 01/11/20 at 11:31; Status DC Lorazepam (Ativan Inj) 1 mg Q2HR PRN IVP ALCOHOL WITHDRAWAL SYMPTOMS Last administered on 01/10/20at 18:24; Start 01/10/20 at 11:30 Potassium Chloride/Water 100 ml @ 100 mls/hr Q1H IV ; Start 01/10/20 at 13:00; Stop 01/10/20 at 14:59; Status Cancel Pantoprazole Sodium (PROTONIX VIAL for IV PUSH) 40 mg DAILY08 IVP Last administered on 01/11/20at 08:59; Start 01/11/20 at 08:00; Stop 01/11/20 at 11:13; Status DC Potassium Chloride/Water 100 ml @ 100 mls/hr Q1H IV Last administered on 01/10/20at 18:27; Start 01/10/20 at 13:00; Stop 01/10/20 at 16:59; Status DC Morphine Sulfate (Morphine Sulfate) 4 mg 1X ONCE IV Last administered on 01/10/20at 14:00; Start 01/10/20 at 13:15; Stop 01/10/20 at 13:24; Status DC Sodium Chloride (Normal Saline Flush) 3 ml QSHIFT PRN IV AFTER MEDS AND BLOOD DRAWS; Start 01/10/20 at 13:15 Sodium Chloride 1,000 ml @ 100 mls/hr Q10H IV Last administered on 01/12/20at 06:23; Start 01/10/20 at 13:13 Ondansetron HCl (Zofran) 4 mg PRN Q4HRS PRN IV NAUSEA/VOMITING; Start 01/10/20 at 13:15 Acetaminophen (Tylenol Supp) 650 mg PRN Q4HRS PRN MO TEMP OVER 100.4F OR MILD PAIN; Start 01/10/20 at 13:15 Clonidine HCl (Catapres) 0.1 mg PRN Q6HRS PRN PO SBP>160 OR DBP>90; Start 01/10/20 at 13:15 Docusate Sodium (Colace) 100 mg PRN BID PRN PO CONSTIPATION; Start 01/10/20 at 13:15 Albuterol Sulfate (Ventolin Neb Soln) 2.5 mg PRN Q4HRS PRN NEB SHORTNESS OF BREATH; Start 01/10/20 at 13:15 Guaifenesin (Robitussin) 200 mg PRN Q4HRS PRN PO COUGH; Start 01/10/20 at 13:15 Lorazepam (Ativan) 0.5 mg PRN Q4HRS PRN PO ANXIETY / AGITATION Last administere d on 01/11/20at 18:01; Start 01/10/20 at 13:15 Lorazepam (Ativan Inj) 2 mg PRN Q4HRS PRN IV ANXIETY / AGITATION Last administered on 01/12/20at 06:23; Start 01/10/20 at 13:15 Hydromorphone HCl (Dilaudid) 0.5 mg PRN Q2HR ONCE IV ; Start 01/10/20 at 20:15; Stop 01/10/20 at 20:16; Status Cancel Hydromorphone HCl (Dilaudid) 0.5 mg PRN Q2HRS PRN IV Pain Last administered on 01/12/20at 06:24; Start 01/10/20 at 20:15 Fentanyl Citrate (Fentanyl 2ml Vial) 25 mcg PRN Q5MIN PRN IV MILD PAIN 1-3; Start 01/11/20 at 07:30; Stop 01/12/20 at 07:29; Status DC Fentanyl Citrate (Fentanyl 2ml Vial) 50 mcg PRN Q5MIN PRN IV MODERATE TO SEVERE PAIN; Start 01/11/20 at 07:30; Stop 01/12/20 at 07:29; Status DC Morphine Sulfate (Morphine Sulfate) 1 mg PRN Q10MIN PRN IV SEVERE PAIN 7-10; Start 01/11/20 at 07:30; Stop 01/12/20 at 07:29; Status DC Ringer's Solution 1,000 ml @ 30 mls/hr Q24H IV Last administered on 01/11/20at 10:37; Start 01/11/20 at 07:16; Stop 01/11/20 at 19:15; Status DC Lidocaine HCl (Xylocaine-Mpf 1% 2ml Vial) 2 ml 1X PRN PRN ID IV START; Start 01/11/20 at 07:30; Stop 01/12/20 at 07:29; Status DC Hydromorphone HCl (Dilaudid) 0.5 mg PRN Q10MIN PRN IV SEV PAIN, Second choice; Start 01/11/20 at 07:30; Stop 01/12/20 at 07:29; Status DC Prochlorperazine Edisylate (Compazine) 5 mg PACU PRN PRN IV NAUSEA, MRX1; Start 01/11/20 at 07:30; Stop 01/12/20 at 07:29; Status DC Ringer's Solution 1,000 ml @ 75 mls/hr 1X ONCE IV ; Start 01/11/20 at 10:30; Stop 01/11/20 at 23:49; Status DC Propofol 40 ml @ As Directed STK-MED ONCE IV ; Start 01/11/20 at 10:58; Stop 01/11/20 at 10:59; Status DC Lidocaine HCl (Lidocaine Pf 2% Vial) 5 ml STK-MED ONCE .ROUTE ; Start 01/11/20 at 10:58; Stop 01/11/20 at 10:59; Status DC Pantoprazole Sodium (Protonix) 40 mg DAILYAC PO Last administered on 01/12/20at 08:47; Start 01/12/20 at 07:30 Active Scripts Active Benztropine Mesylate 0.5 Mg Tablet 1 Tab PO BID 30 Days Dilaudid (Hydromorphone Hcl) 2 Mg Tablet 2 Mg PO PRN Q8HRS PRN 6 Days Geodon (Ziprasidone Hcl) 20 Mg Capsule 20 Mg PO BID 30 Days Trazodone Hcl 100 Mg Tablet 100 Mg PO QHS 30 Days Catapres (Clonidine Hcl) 0.1 Mg Tablet 0.1 Mg PO PRN Q1HR PRN 7 Days Can take for withdrawal symptoms Xifaxan (Rifaximin) 550 Mg Tablet 550 Mg PO Q12HR 30 Days Lactulose 20 Gm/30 Ml Solution 20 Gm PO TID 30 Days Prazosin Hcl 1 Mg Capsule 1 Cap PO QHS 30 Days Pantoprazole Sodium (Pantoprazole Sodium) 40 Mg Tablet.dr 40 Mg PO DAILYAC Multivitamins (Multivitamin) 1 Each Tablet 1 Tab PO DAILY Folic Acid 1 Mg Tablet 1 Tab PO DAILY Vitamin B-1 (Thiamine Hcl) 100 Mg Tablet 100 Mg PO DAILY 30 Days Feosol (Ferrous Sulfate) 325 Mg Tablet 325 Mg PO DAILYWBKFT 30 Days Reported Zyprexa (Olanzapine) 5 Mg Tablet 1 Tab PO QHS Hydroxyzine Hcl 25 Mg Tablet 3 Tab PO TID Vitals/I & O Vital Sign - Last 24 Hours 2/11/20 2/11/20 2/11/20 2/11/20 09:29 10:28 10:33 11:08 Temp 98.3 97.0 98.3 97.0 Pulse 100 93 Resp 20 20 B/P (MAP) 103/49 Pulse Ox 95 100 97 O2 Delivery Room Air Room Air Room Air Nasal Cannula O2 Flow Rate 2.0 2 01/11/20 01/11/20 01/11/20 01/11/20 11:23 12:00 12:30 14:15 Pulse 98 Resp 20 B/P (MAP) 104/51 Pulse Ox 95 95 95 95 O2 Delivery Room Air Room Air Room Air Room Air O2 Flow Rate 2.0 2.0 01/11/20 01/11/20 01/11/20 01/11/20 15:00 16:10 16:11 16:41 Temp 97.9 97.9 Pulse 98 Resp 18 B/P (MAP) 165/86 (112) Pulse Ox 96 95 95 95 O2 Delivery Room Air Room Air Room Air Room Air O2 Flow Rate 2.0 2.0 2.0 01/11/20 01/11/20 01/11/20 01/11/20 18:02 18:32 19:00 20:23 Temp 98.5 98.5 Pulse 96 Resp 16 B/P (MAP) 145/85 (105) Pulse Ox 95 95 93 O2 Delivery Room Air Room Air Room Air Room Air O2 Flow Rate 2.0 01/11/20 01/11/20 01/12/20 01/12/20 21:14 21:53 02:15 02:53 O2 Delivery Room Air Room Air Room Air Room Air 01/12/20 01/12/20 01/12/20 01/12/20 03:58 06:24 07:30 08:00 Temp 98.4 98.8 98.4 98.8 Pulse 116 112 Resp 18 18 B/P (MAP) 135/89 (104) 149/86 (107) Pulse Ox 92 95 O2 Delivery Room Air Room Air Room Air Room Air Intake and Output 01/11/20 01/11/20 01/12/20 15:00 23:00 07:00 Intake Total 400 ml 118 ml 400 ml Output Total 200 ml 300 ml Balance 200 ml -182 ml 400 ml KORY CRAIG MD Jan 12, 2020 09:28
[2020-01-12] MEDS: LORazepam 0.5 MG TABLET PO PRN (09:41)
[2020-01-12 11:00] VITALS: BP 135/91
--- NOTE | 2020-01-12 13:22 | PDOC ---
Subjective: Subjective: Tolerating clears, lots of pain, stools look dark. Objective: Vital Signs: Vital Signs Date Time Temp Pulse Resp B/P (MAP) Pulse Ox O2 Delivery O2 Flow Rate FiO2 01/12/20 11:00 98.3 105 16 135/91 (106) 94 Room Air 98.3 01/11/20 18:02 2.0 Labs: Laboratory Tests Test 01/11/20 13:45 01/11/20 22:15 01/12/20 05:35 White Blood Count 2.4 x10^3/uL 2.3 x10^3/uL 2.2 x10^3/uL Red Blood Count 3.32 x10^6/uL 3.14 x10^6/uL 3.29 x10^6/uL Hemoglobin 11.1 g/dL 10.6 g/dL 11.0 g/dL Hematocrit 33.0 % 31.5 % 33.2 % Mean Corpuscular Volume 99 fL 100 fL 101 fL Mean Corpuscular Hemoglobin 33 pg 34 pg 34 pg Mean Corpuscular Hemoglobin Concent 34 g/dL 34 g/dL 33 g/dL Red Cell Distribution Width 15.4 % 15.6 % 16.1 % Platelet Count 32 x10^3/uL 30 x10^3/uL 32 x10^3/uL Prothrombin Time 19.2 SEC Prothromb Time International Ratio 1.6 URINE CULTURE RES 1 Final No growth Imaging: EGD 01/11 E--small, maybe Grade II varices mid/distal esophagus. None with signs of recent or imminent bleeding. Scarring from prior banding. G--Diffuse portal hypertensive gastropathy. D--Normal to second portion. IMP: Non-bleeding varices, small. Portal hypertensive gastropathy. PE: GEN: NAD - walking around room, a bit tremulous - better LUNGS: CTAB HEART: RRR ABD: soft, non-tender NEURO/PSYCH: A & O 3 A/P: Chronic abdominal pain, cirrhosis, psych issues -- Usual complaints for him w/ stable labs and no bleeding on EGD. Continue PPI, try full liquids. Stop drinking. Hemodynamically unstable?: No Is patient in severe pain?: Yes Is NPO status required?: No AJNET STEWART Jan 12, 2020 13:22
[2020-01-12 14:29] LABS: HEMOGLOBIN 10.8 g/dL (13.0-17.5); RED BLOOD COUNT 3.21 x10^6/uL (4.30-5.70)
[2020-01-12 15:00] VITALS: BP 137/97
[2020-01-12 19:00] VITALS: BP 168/74
[2020-01-12 22:21] LABS: HEMOGLOBIN 10.2 g/dL (13.0-17.5); RED CELL DISTRIBUTION WIDTH 15.8 % (11.5-14.5)
[2020-01-12 22:23] LABS: WHITE BLOOD COUNT 1.7 x10^3/uL (4.0-11.0)
[2020-01-12 23:00] VITALS: BP 117/68
[2020-01-13] MEDS: IV NORMAL SALINE 1000ML BAG 1,000 ML IV SCH ×2 (00:06→12:26)
[2020-01-13] MEDS: HYDROmorphone 2 MG/ML VIAL IV PRN ×7 (00:07→13:31)
[2020-01-13 03:00] VITALS: BP 140/81
[2020-01-13 07:00] VITALS: BP 134/80
[2020-01-13] MEDS: PANTOPRAZOLE 40 MG TABLET.DR. PO SCH (08:07)
[2020-01-13] MEDS: LORazepam 0.5 MG TABLET PO PRN (08:25)
[2020-01-13 11:00] VITALS: BP 151/93
--- NOTE | 2020-01-13 11:45 | NUR ---
SW following. Discussed with RN, pt has been cleared in the ER by the PAT team, withdrawing, full liquid diet. RN advised no SW needs. SW will continue to follow.
[2020-01-13] MEDS ORDERED: HYDR2TAB31 PO (13:23)
--- NOTE | 2020-01-13 13:25 | PDOC3 ---
Discharge Summary Visit Information Date of Admission: Jan 10, 2020 Date of Discharge: Jan 13, 2020 Final Diagnosis EtOH abuse - SEVERE Major depression - needs outpatient treatment NONCOMPLIANCE HEMATEMESIS Portal hypertensive gastropathy. Chronic pain Pancytopenia - likely related to liver disease, Epigastric and RUQ PAIN, radiates to back, worse with meals RECENT CT Findings are consistent with cirrhosis and portal vein hypertension including splenomegaly and varices. There is a new finding of multiple hypodense lesions within the liver. The hepatic veins appear narrowed. Therefore this may represent mass effect and could be secondary to multicentric hepatocellular carcinoma in the setting of chronic cirrhosis. 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 Smoker - counseled on cessation Alpha-1 antitrypsin deficiency - MZ mutation - increases his risk of liver disease given his ETOH abuse DJD thc abuse Transaminitis - fits ETOH pattern. Hepatic cirrhosis and findings of portal hypertension , C/W END ORGAN INJURY. INR 1.6 and Bilirubin4.5 Esophageal varices are numerous and more notable in the interval. ON RECENT CT Gallstone lodged at the gallbladder neck, no gallbladder wall thickening - seen by general surgery previously, no indication for surgery Problems Medical Problems: (1) Alcohol withdrawal Status: Acute (2) Thrombocytopenia Status: Chronic Brief Hospital Course Allergies Allergies Coded Allergies Type Severity Reaction Last Updated Verified adhesive tape Allergy Intermediate Rash 11/02/19 Yes Vital Signs Vital Signs Date Time Temp Pulse Resp B/P (MAP) Pulse Ox O2 Delivery O2 Flow Rate FiO2 01/13/20 11:00 97.9 111 21 151/93 (112) 97 Room Air 97.9 01/13/20 00:37 2.0 Lab Results Laboratory Tests Test 01/11/20 13:45 01/11/20 22:15 01/12/20 05:35 01/12/20 13:55 White Blood Count 2.4 x10^3/uL (4.0-11.0) 2.3 x10^3/uL (4.0-11.0) 2.2 x10^3/uL (4.0-11.0) 2.0 x10^3/uL (4.0-11.0) Red Blood Count 3.32 x10^6/uL (4.30-5.70) 3.14 x10^6/uL (4.30-5.70) 3.29 x10^6/uL (4.30-5.70) 3.21 x10^6/uL (4.30-5.70) Hemoglobin 11.1 g/dL (13.0-17.5) 10.6 g/dL (13.0-17.5) 11.0 g/dL (13.0-17.5) 10.8 g/dL (13.0-17.5) Hematocrit 33.0 % (39.0-53.0) 31.5 % (39.0-53.0) 33.2 % (39.0-53.0) 32.0 % (39.0-53.0) Mean Corpuscular Volume 99 fL (79-100) 100 fL (79-100) 101 fL (79-100) 100 fL (79-100) Mean Corpuscular Hemoglobin 33 pg (25-35) 34 pg (25-35) 34 pg (25-35) 34 pg (25-35) Mean Corpuscular Hemoglobin Concent 34 g/dL (31-37) 34 g/dL (31-37) 33 g/dL (31-37) 34 g/dL (31-37) Red Cell Distribution Width 15.4 % (11.5-14.5) 15.6 % (11.5-14.5) 16.1 % (11.5-14.5) 16.0 % (11.5-14.5) Platelet Count 32 x10^3/uL (140-400) 30 x10^3/uL (140-400) 32 x10^3/uL (140-400) 30 x10^3/uL (140-400) Prothrombin Time 19.2 SEC (11.7-14.0) Prothromb Time International Ratio 1.6 (0.8-1.1) Test 01/12/20 22:10 White Blood Count 1.7 x10^3/uL (4.0-11.0) Red Blood Count 3.00 x10^6/uL (4.30-5.70) Hemoglobin 10.2 g/dL (13.0-17.5) Hematocrit 30.0 % (39.0-53.0) Mean Corpuscular Volume 100 fL (79-100) Mean Corpuscular Hemoglobin 34 pg (25-35) Mean Corpuscular Hemoglobin Concent 34 g/dL (31-37) Red Cell Distribution Width 15.8 % (11.5-14.5) Platelet Count 29 x10^3/uL (140-400) Laboratory Tests Test 01/12/20 13:55 01/12/20 22:10 White Blood Count 2.0 x10^3/uL (4.0-11.0) 1.7 x10^3/uL (4.0-11.0) Red Blood Count 3.21 x10^6/uL (4.30-5.70) 3.00 x10^6/uL (4.30-5.70) Hemoglobin 10.8 g/dL (13.0-17.5) 10.2 g/dL (13.0-17.5) Hematocrit 32.0 % (39.0-53.0) 30.0 % (39.0-53.0) Mean Corpuscular Volume 100 fL (79-100) 100 fL (79-100) Mean Corpuscular Hemoglobin 34 pg (25-35) 34 pg (25-35) Mean Corpuscular Hemoglobin Concent 34 g/dL (31-37) 34 g/dL (31-37) Red Cell Distribution Width 16.0 % (11.5-14.5) 15.8 % (11.5-14.5) Platelet Count 30 x10^3/uL (140-400) 29 x10^3/uL (140-400) Brief Hospital Course Mr. Dsouza is a 29 old admit with GI bleed pancytpenia, liver cirrhosis, long history listed above poor PO intake due to pain poor prognosis. [ ] Assessment Assessment Mr Dsouza is a 29yo M w/ PMHx schizophrenia, multiple suicidal attempts (6 in the past year at [facility]), alcohol abuse, DJD, smoker, alpha-1 antitrypsin deficiency (MZ phenotype), and cirrhosis of the liver with variceal banding. He was brought into the hospital after he appears to have ingested alcohol and c/o alcohol withdrawal symptoms on 12/19/2019, states he has recently been drinking up to 2 pints of vodka daily. He states that he last had a drink of alcohol 12/28/2019 at approximately 8 PM. At this time he complains of nausea, vomiting, auditory and visual hallucinations, with uncontrollable shaking and tremors. Patient states in the past he has been treated for alcohol addiction and he reports having a recent relapse. Patient states that his visual hallucinations have included seeing bright flashes of light and bright colors, the auditory hallucinations have been voices but he denies any suicidal or homicidal statements. At this time he complains of pain all over that he rates a 10/10 on the pain scale. He states he has been vomiting all day more than 10 times, pt states there was bright red blood streaks in some of the emesis. He denies any fever, cough, or shortness of breath. He complains of non-specific abdominal pain that he rates a 10/10 and reports having white stools recently. Denies any diarrhea, rectal bleeding, or melena. Bilirubin 4.5, INR 1.6, K 3.2. He was confused. 12/21: He is drowsy today. Asking for more IV ativan. Falls asleep during examination. Feels weak. Mag and K low today. Bilirubin up 12/22: LFTs slightly improved today. Lytes improved. Tachycardic and shaky, asking for more morphine and ativan. No CP or SOB 12/23: Transferred off telemetry yesterday. He is asking for IV fentanyl and dilaudid, refusing lactulose. States he wants more pain medications and disagrees with his treatment plan for his liver. He also c/o jaw popping, nasal popping. 12/24: Today more reasonable. He is feeling tingling all over. Asking for pain medications. I have had a long conversation with him about psychiatric follow up. Started Geodon, prazosin, trazodone, atarax, zoloft, prn ativan 12/25: No BM, still with abdominal pain, decreased appetite today. His LFTs finally improving, but pancytopenia worsening. Having bowel movements. His mood is more stable today. He is taking lactulose and rifaximin. Will have tapered opioid wean over the next 12 days and f/u with [facility]. Problem List: Acute hepatic encephalopathy - possibly 2/2 decompensated cirrhosis. 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 Smoker - counseled on cessation Alpha-1 antitrypsin deficiency - MZ mutation - increases his risk of liver disease given his ETOH abuse DJD Transaminitis - fits ETOH pattern. will follow Hepatic cirrhosis and findings of portal hypertension , C/W END ORGAN INJURY. INR 1.6 and Bilirubin4.5 Esophageal varices are numerous and more notable in the interval. ON RECENT CT Gallstone lodged at the gallbladder neck, no gallbladder wall thickening - seen by general surgery previously, no indication for surgery Plan: Increase lactulose, add rifaximin ETOH cessation Wean off opioids and benzos Plan for outpatient [facility] follow up GI f/u outpatient d/c 12/26/2019 Prior admissions to [facility]: 06/21/2017 - 06/25/2017 - Suicidal ideation and alcoholic intoxication. PAT team for suicidal ideation and was cleared for discharge to home rather than inpatient psychiatric admission. EGD 06/25/2017 - small varices and patchy portal gastropathy 06/30/2019 - 07/07/2019 - EGD on 07/01/2019 grade 2 varices with scarring, probably from prior banding in the distal third of the esophagus. Two 1-2 mm linear ulcerations were noted in the distal esophagus. Diffuse portal hypertensive gastropathy was also noted. 06/16/2019 - 06/22/2019 - UGIB 06/23/2019 - 09/02/2019 - Suicide attempt, cut wrists and ETOH intoxication, acute psychosis. Involuntarily committed to [facility] 09/10/2019 - 09/14/2019 - ETOH intoxication 09/16/2019 - 09/21/2019 - Wrist cutting, mother called adult protective services. ETOH intoxication 11/02/2019 - 11/03/2019 - GB disease Discharge Information Condition at Discharge: Improved Follow Up: Weeks Disposition/Orders: D/C to Home Scheduled Benztropine Mesylate (Benztropine Mesylate) 0.5 Mg Tablet, 1 TAB PO BID for EPS for 30 Days, #60 Ref 2 Prescribed by: BENJIE CHANEL MD on 12/26/19 0824 Ferrous Sulfate (Feosol) 325 Mg Tablet, 325 MG PO DAILYWBKFT for 30 Days, #30 Prescribed by: YAYA MORTENSEN MD on 06/24/17 1218 Folic Acid (Folic Acid) 1 Mg Tablet, 1 TAB PO DAILY for liver, #90 Ref 1 Prescribed by: KUSH SOFIA on 07/07/19 1126 Hydroxyzine Hcl (Hydroxyzine Hcl) 25 Mg Tablet, 3 TAB PO TID for anxiety, (Reported) Entered as Reported by: AIME TOMPKINS RN on 08/18/19 1715 Lactulose (Lactulose) 20 Gm/30 Ml Solution, 20 GM PO TID for constipatrion for 30 Days, #2700 Ref 2 Prescribed by: BENJIE CHANEL MD on 12/26/19 0823 Multivitamin (Multivitamins) 1 Each Tablet, 1 TAB PO DAILY for liver, #90 Ref 3 Prescribed by: KUSH SOFIA on 07/07/19 1126 Olanzapine (Zyprexa) 5 Mg Tablet, 1 TAB PO QHS for Anxiety, (Reported) Entered as Reported by: HANK JOHN on 08/20/19 2100 Pantoprazole Sodium (Pantoprazole Sodium ) 40 Mg Tablet.dr, 40 MG PO DAILYAC for transient hematemesis, #60 Prescribed by: SONAL SANDS on 09/14/19 0837 Prazosin Hcl (Prazosin Hcl) 1 Mg Capsule, 1 CAP PO QHS for anxiety/depression for 30 Days, #30 Ref 2 Prescribed by: BENJIE CHANEL MD on 12/26/19 0823 Rifaximin (Xifaxan) 550 Mg Tablet, 550 MG PO Q12HR for Cirrhosis for 30 Days, #60 Ref 2 Prescribed by: BENJIE CHANEL MD on 12/26/19 0823 Thiamine Hcl (Vitamin B-1) 100 Mg Tablet, 100 MG PO DAILY for liver for 30 Days, #30 Prescribed by: KUSH SOFIA on 07/07/19 1126 Trazodone Hcl (Trazodone Hcl) 100 Mg Tablet, 100 MG PO QHS for Depression/Sleep for 30 Days, #30 Ref 2 Prescribed by: BENJIE CHANEL MD on 12/26/19 0823 Ziprasidone Hcl (Geodon) 20 Mg Capsule, 20 MG PO BID for Mood Stabilizer for 30 Days, #60 Ref 2 Prescribed by: BENJIE CHANEL MD on 12/26/19 0823 Scheduled PRN Clonidine Hcl (Catapres) 0.1 Mg Tablet, 0.1 MG PO PRN Q1HR PRN for SBP > 180 or DBP > 100, MRX3 for 7 Days, #14 Can take for withdrawal symptoms Prescribed by: BENJIE CHANEL MD on 12/26/19 0823 Hydromorphone Hcl (Dilaudid) 2 Mg Tablet, 2 MG PO PRN Q8HRS PRN for PAIN, #15 Prescribed by: LIAN STRATTON on 01/13/20 1323 Patient Instructions Patient Instructions > 30 min face to face Hemodynamically unstable?: No Is patient in severe pain?: Yes Is NPO status required?: No LIAN STRATTON MD Jan 13, 2020 13:25
--- NOTE | 2020-01-13 14:01 | PDOC ---
Subjective: Subjective: Lots of pain, not eating much, wants some more pain meds just for a couple days, doctors aren't helping him so he's just probably going to drink again to stop the pain. Wants us to know that EGDs hurt. Objective: Vital Signs: Vital Signs Date Time Temp Pulse Resp B/P (MAP) Pulse Ox O2 Delivery O2 Flow Rate FiO2 01/13/20 13:31 20 97 Room Air 01/13/20 11:14 2.0 01/13/20 11:00 97.9 111 151/93 (112) 97.9 Labs: Laboratory Tests Test 01/12/20 22:10 White Blood Count 1.7 x10^3/uL Red Blood Count 3.00 x10^6/uL Hemoglobin 10.2 g/dL Hematocrit 30.0 % Mean Corpuscular Volume 100 fL Mean Corpuscular Hemoglobin 34 pg Mean Corpuscular Hemoglobin Concent 34 g/dL Red Cell Distribution Width 15.8 % Platelet Count 29 x10^3/uL PE: GEN: NAD - lunch tray w/ yogurt consumed LUNGS: CTAB HEART: RRR ABD: tender RUQ per usual NEURO/PSYCH: A & O 3 A/P: Chronic abdominal pain, cirrhosis, psych issues -- Note DC plans. Continue PPI, encouraged not to resume alcohol. Hemodynamically unstable?: No Is patient in severe pain?: Yes Is NPO status required?: No JANET STEWART Jan 13, 2020 14:01
== END 2020-01-13 18:20 | disposition home or self-care (01) | DRG 377 ==
LOC: ER 07:38 → 6 SOUTH 11:32 → OBSVTOIN 11:32 → 5 SOUTH 01-12 20:28
PROVIDERS: ADMIT Family Medicine; ATTEND Family Medicine
PROC: 0DJ08ZZ Inspection of Upper Intestinal Tract, Via Natural or Artificial Opening Endoscopic (ICD-10-PCS; principal; 2020-01-11 11:00)
DX: K92.0 Hematemesis (principal); K72.00 Acute and subacute hepatic failure without coma; I85.11 Secondary esophageal varices with bleeding; K76.6 Portal hypertension; F10.239 Alcohol dependence with withdrawal, unspecified; D61.818 Other pancytopenia; K70.30 Alcoholic cirrhosis of liver without ascites; E88.01 Alpha-1-antitrypsin deficiency; F17.210 Nicotine dependence, cigarettes, uncomplicated; F41.9 Anxiety disorder, unspecified; F60.4 Histrionic personality disorder; G62.9 Polyneuropathy, unspecified; I10 Essential (primary) hypertension; K21.9 Gastro-esophageal reflux disease without esophagitis; F32.9 Major depressive disorder, single episode, unspecified; F20.9 Schizophrenia, unspecified; F10.229 Alcohol dependence with intoxication, unspecified; M19.90 Unspecified osteoarthritis, unspecified site; E83.42 Hypomagnesemia; E87.6 Hypokalemia; K80.20 Calculus of gallbladder without cholecystitis without obstruction; F12.10 Cannabis abuse, uncomplicated; R74.0 Nonspecific elevation of levels of transaminase and lactic acid dehydrogenase [LDH]; K57.30 Diverticulosis of large intestine without perforation or abscess without bleeding; K31.89 Other diseases of stomach and duodenum; G89.29 Other chronic pain; Z91.09 Other allergy status, other than to drugs and biological substances; Z91.19 Patient's noncompliance with other medical treatment and regimen; Z79.899 Other long term (current) drug therapy
CPT/HCPCS: 36415; 43235; 80048; 80053; 80076; 80307; 81001; 82271; 85025; 85027; 85610; 87086; 96374; 96375; 99285; C9113; G0480; J1170; J2001; J2060; J2270; J2405; J2704; J3010; J3480; J7030; J7120; G0378

== ENCOUNTER 2020-01-25 20:35 | Emergency (ER) | payer MEDICAID ==
[~2020-01-25] VITALS: Ht 177.8 cm; Wt 95.4 kg
[~2020-01-25 20:35] MED LIST changes: +BUSP5TAB PO
--- NOTE | 2020-01-25 20:56 | PHYS DOC ---
Past Medical History Past Medical History: Alcoholism, Depression, Schizophrenia, Other Additional Past Medical Histor: TACHYCARDIA, alpha 1 antitrypsin deficiency, DDD,esophogeal varicies Past Surgical History: Other Additional Past Surgical Histo: esophogeal varicies banding Smoking Status: Current Every Day Smoker Alcohol Use: Heavy Drug Use: None Adult General HPI HPI 29-year-old male with underlying history of alcoholism, schizophrenia presents to the emergency department via EMS in restraints secondary to agitation. Patient was recently discharged from this facility is told he would get pain medication for his right shoulder pain however was not prescribed pain medications. Patient states he's been hitting himself against the wall because he's had shoulder pain. He describes wanting to kill himself to take care of the pain. Nothing makes his pain worse, nothing makes his pain better. Patient states he has had a pint of alcohol today. Review of Systems Review of Systems Constitutional: Denies fever or chills [] Respiratory: Denies cough or shortness of breath [] Cardiovascular: No additional information not addressed in HPI [] GI: Denies abdominal pain, nausea, + vomiting 2/2 pain, no bloody stools or diarrhea [] : Denies dysuria or hematuria [] Musculoskeletal: right shoulder pain Integument: Denies rash or skin lesions [] Neurologic: Denies headache, focal weakness or sensory changes [] All other systems were reviewed and found to be within normal limits, except as documented in this note. Current Medications Current Medications Current Medications Medications (Trade) Dose Ordered Sig/Renee Start Time Stop Time Status Last Admin Dose Admin Ketorolac Tromethamine (Toradol 30mg Vial) 30 mg 1X ONCE 01/25/20 21:15 01/25/20 21:17 DC 01/25/20 21:10 30 MG Lorazepam (Ativan Inj) 2 mg 1X ONCE 01/25/20 22:30 01/25/20 22:32 DC 01/25/20 22:25 2 MG Ondansetron HCl (Zofran) 4 mg 1X ONCE 01/25/20 21:15 01/25/20 21:16 DC 01/25/20 21:10 4 MG Ziprasidone (Geodon Im) 20 mg STK-MED ONCE 01/25/20 22:19 01/25/20 22:19 DC Allergies Allergies Allergies Coded Allergies Type Severity Reaction Last Updated Verified adhesive tape Allergy Intermediate Rash 11/02/19 Yes Physical Exam Physical Exam Constitutional: Well developed, well nourished, mod distress/agitation, non- toxic appearance. [] HENT: Normocephalic, atraumatic, bilateral external ears normal, oropharynx moist, no oral exudates, nose normal. [] Eyes: PERRLA, EOMI, conjunctiva normal, no discharge. [] Neck: Normal range of motion, no tenderness, supple, no stridor. [] Cardiovascular: Tachycardia Lungs & Thorax: Bilateral breath sounds clear to auscultation [] Abdomen: Bowel sounds normal, soft, no tenderness, no masses, no pulsatile masses. [] Skin: Warm, dry, no erythema, no rash. [] Back: No tenderness, no CVA tenderness, right shoulder tenderness, no obvious deformity Extremities: No tenderness, no edema. [] Neurologic: Alert and oriented X 3, no focal deficits noted. [] Psychologic: Affect normal, judgement normal, mood normal. [] Current Patient Data Vital Signs Vital Signs Date Time Temp Pulse Resp B/P (MAP) Pulse Ox O2 Delivery O2 Flow Rate FiO2 01/26/20 00:09 120 135/62 (86) 93 Nasal Cannula 2.0 01/25/20 23:39 20 01/25/20 21:17 97.6 97.6 Lab Values Laboratory Tests Test 01/25/20 21:20 White Blood Count 6.5 x10^3/uL (4.0-11.0) Red Blood Count 3.96 x10^6/uL (4.30-5.70) L Hemoglobin 12.9 g/dL (13.0-17.5) L Hematocrit 39.0 % (39.0-53.0) Mean Corpuscular Volume 99 fL (79-100) Mean Corpuscular Hemoglobin 33 pg (25-35) Mean Corpuscular Hemoglobin Concent 33 g/dL (31-37) Red Cell Distribution Width 17.9 % (11.5-14.5) H Platelet Count 85 x10^3/uL (140-400) L Neutrophils (%) (Auto) 81 % (31-73) H Lymphocytes (%) (Auto) 12 % (24-48) L Monocytes (%) (Auto) 6 % (0-9) Eosinophils (%) (Auto) 1 % (0-3) Basophils (%) (Auto) 1 % (0-3) Neutrophils # (Auto) 5.2 x10^3/uL (1.8-7.7) Lymphocytes # (Auto) 0.8 x10^3/uL (1.0-4.8) L Monocytes # (Auto) 0.4 x10^3/uL (0.0-1.1) Eosinophils # (Auto) 0.1 x10^3/uL (0.0-0.7) Basophils # (Auto) 0.1 x10^3/uL (0.0-0.2) Sodium Level 143 mmol/L (136-145) Potassium Level 3.9 mmol/L (3.5-5.1) Chloride Level 107 mmol/L (98-107) Carbon Dioxide Level 20 mmol/L (21-32) L Anion Gap 16 (6-14) H Blood Urea Nitrogen 4 mg/dL (8-26) L Creatinine 0.7 mg/dL (0.7-1.3) Estimated GFR (Cockcroft-Gault) 133.3 BUN/Creatinine Ratio 6 (6-20) Glucose Level 109 mg/dL (70-99) H Calcium Level 8.5 mg/dL (8.5-10.1) Total Bilirubin 4.2 mg/dL (0.2-1.0) H Aspartate Amino Transferase (AST) 128 U/L (15-37) H Alanine Aminotransferase (ALT) 58 U/L (16-63) Alkaline Phosphatase 251 U/L (46-116) H Total Protein 7.2 g/dL (6.4-8.2) Albumin 3.1 g/dL (3.4-5.0) L Albumin/Globulin Ratio 0.8 (1.0-1.7) L Salicylates Level < 2.8 mg/dL (2.8-20.0) L Salicylate Last Dose Date Unknown Salicylate Last Dose Time Unknown Acetaminophen Level < 2 mcg/ml (10-30) L Acetaminophen Last Dose Date Unknown Acetaminophen Last Dose Time Unknown Ethyl Alcohol Level 202 mg/dL (0-10) H Laboratory Tests 01/25/20 21:20 Laboratory Tests 01/25/20 21:20 EKG EKG [] Radiology/Procedures Radiology/Procedures No obvious fracture/dislocation of shoulder itself - patient reports collar bone fracture recently[] Course & Med Decision Making Course & Med Decision Making Pertinent Labs and Imaging studies reviewed. (See chart for details) []29-year-old male with underlying history of alcoholism, schizophrenia presents to the emergency department via EMS in restraints secondary to agitation. Patient was recently discharged from this facility is told he would get pain medication for his right shoulder pain however was not prescribed pain medications. Patient states he's been hitting himself against the wall because he's had shoulder pain. He describes wanting to kill himself to take care of the pain however has no detailed plan. Nothing makes his pain worse, nothing makes his pain better. Patient states he has had a pint of alcohol today. Xray without acute findings - no fracture or dislocation of shoulder, he does have distal fracture of collar bone which was present with his visit 2 days ago Labs reviewed PAT to assess given SI - patient exhibits no plan of action Patient received zofran/ativan for retching Patient attempted to leave ER and given his SI concern prior to state assessment, 4 point restraints were used along with 20mg IM geodon and ativan 2mg IV Awaiting state senior sales executive at this time 2253 Initial PAT assessment reveals no plan of action for SI Patient states he needs pain medications and will not participate State senior sales executive review reveals patient does not meet criteria for involuntary commitment, no plan of action regarding SI and in fact has retracted statements during assessment Record reviewed 14, patient will be dc from this facility to home Cab pass for ride home requested Judit Disclaimer Judit Disclaimer This electronic medical record was generated, in whole or in part, using a voice recognition dictation system. Departure Departure Impression: Primary Impression: Right shoulder pain Additional Impression: Collar bone fracture Disposition: HOME, SELF-CARE Condition: STABLE Referrals: UNKNOWN PCP NAME (PCP) Patient Instructions: Alcohol Intoxication, [id number], Clavicle Fracture, [id number], Shoulder Pain, [id number] Additional Instructions: Recommend follow up with PCP as needed Tylenol/Motrin as needed for pain Toradol IV provided in ER Problem Qualifiers Primary Impression: Right shoulder pain Chronicity: acute Qualified Codes: M25.511 - Pain in right shoulder Additional Impression: Collar bone fracture Encounter type: subsequent encounter Clavicle location: unspecified part of clavicle Fracture type: closed Fracture alignment: nondisplaced Laterality: right Fracture healing: with routine healing Qualified Codes: S42.001D - Fracture of unspecified part of right clavicle, subsequent encounter for fracture with routine healing IRMA COOPER MD Jan 25, 2020 20:56
[2020-01-25] MEDS ORDERED: ONDANSETRON PF 4 MG/2 ML VIAL. IVP ONE (21:15)
[2020-01-25] MEDS ORDERED: KETOROLAC 30 MG/ML VIAL. IVP ONE (21:15)
[2020-01-25 21:31] LABS: BASO # 0.1 x10^3/uL (0.0-0.2); BASO % 1 % (0-3); EOS # 0.1 x10^3/uL (0.0-0.7); EOS % 1 % (0-3); HEMOGLOBIN 12.9 g/dL (13.0-17.5); LYMPH # 0.8 x10^3/uL (1.0-4.8); LYMPH % 12 % (24-48); MEAN CORPUSCULAR HEMOGLOBIN 33 pg (25-35); MEAN CORPUSCULAR HGB CONC 33 g/dL (31-37); MEAN CORPUSCULAR VOLUME 99 fL (79-100); MONO # 0.4 x10^3/uL (0.0-1.1); MONO % 6 % (0-9); NEUT # 5.2 x10^3/uL (1.8-7.7); NEUT % 81 % (31-73); PLATELET COUNT 85 x10^3/uL (140-400); RED BLOOD COUNT 3.96 x10^6/uL (4.30-5.70); RED CELL DISTRIBUTION WIDTH 17.9 % (11.5-14.5); WHITE BLOOD COUNT 6.5 x10^3/uL (4.0-11.0)
[2020-01-25 21:42] LABS: CALCIUM 8.5 mg/dL (8.5-10.1); CREATININE 0.7 mg/dL (0.7-1.3); GFR 133.3; POTASSIUM 3.9 mmol/L (3.5-5.1)
[2020-01-25 21:46] LABS: ACETAMIN < 2 mcg/ml (10-30); SALIC < 2.8 mg/dL (2.8-20.0)
[2020-01-25 21:49] LABS: ALBUMIN 3.1 g/dL (3.4-5.0); ALBUMIN/GLOBULIN RATIO 0.8 (1.0-1.7); TOTAL BILIRUBIN 4.2 mg/dL (0.2-1.0); TOTAL PROTEIN 7.2 g/dL (6.4-8.2)
[2020-01-25] MEDS ORDERED: ZIPRASIDONE IM 20 MG VIAL. IM ONE ×2 (22:19→22:30)
--- NOTE | 2020-01-25 23:21 | RAD ---
Exam: Right shoulder 3 views INDICATION: Shoulder pain TECHNIQUE: Frontal view of the right shoulder with internal and external rotation and transscapular Y view. Comparisons: 01/22/2020 FINDINGS: Redemonstration of fracture involving the distal right clavicle. No other fractures are seen. Soft tissues are unremarkable. Joint spaces are well-maintained. IMPRESSION: Redemonstrated fracture of the distal right clavicle. Electronically signed by: Ivania Workman MD (01/25/2020 11:18 PM) [id number]
[2020-01-26 01:14] VITALS: BP 120/79
== END 2020-01-26 01:32 | disposition home or self-care (01) ==
LOC: ER 20:35
DX: S42.034A Nondisplaced fracture of lateral end of right clavicle, initial encounter for closed fracture (principal); R45.1 Restlessness and agitation; R11.2 Nausea with vomiting, unspecified; F20.9 Schizophrenia, unspecified; F17.200 Nicotine dependence, unspecified, uncomplicated; Z88.8 Allergy status to other drugs, medicaments and biological substances; W22.01XA Walked into wall, initial encounter; Y93.89 Activity, other specified; Y92.89 Other specified places as the place of occurrence of the external cause; Y99.8 Other external cause status
CPT/HCPCS: 36415; 73030; 80053; 80329; 85025; 96372; 96374; 96375; 99285; G0480; J1885; J2060; J2405; J3486

== ENCOUNTER 2020-02-20 06:59 | Inpatient (IN) | payer MEDICAID ==
[~2020-02-20] VITALS: Ht 177.8 cm; Wt 91.6 kg
--- NOTE | 2020-02-20 07:12 | PHYS DOC ---
Past Medical History Past Medical History: Alcoholism, Depression, Schizophrenia, Other Additional Past Medical Histor: TACHYCARDIA, alpha 1 antitrypsin deficiency, DDD,esophogeal varicies Past Surgical History: Other Additional Past Surgical Histo: esophogeal varicies banding Smoking Status: Current Every Day Smoker Alcohol Use: Heavy Drug Use: None Adult General HPI HPI 30-year-old male with significant history of alcoholism, cirrhosis, schizoaffective disorder, who presents for evaluation of hematemesis. Reports a couple days of upper abdominal pain in the setting of alcohol use. He had 2 episodes of dark emesis this morning including an estimated 50 mL of gross hematemesis according to EMS just prior to arrival. No anticoagulant or significant NSAID use. No aggravating or alleviating factors. Review of Systems Review of Systems General: No fevers, chills. Eyes: No blurred vision, diplopia. ENT: No nasal congestion, sore throat. CV: No chest pain, edema. Resp: No shortness of breath, cough. GI: Reports hematemesis, abdominal pain, nausea, vomiting. : No dysuria, hematuria. Neuro: No headache, dizziness. MSK: No myalgia, arthralgia. Skin: No acute rash, lesion. Psych: Reports alcoholism All other systems were reviewed and found to be within normal limits, except as documented in this note. Current Medications Current Medications Current Medications Medications (Trade) Dose Ordered Sig/Renee Start Time Stop Time Status Last Admin Dose Admin Haloperidol Lactate (Haldol Inj) 2.5 mg 1X ONCE 02/20/20 08:15 02/20/20 08:16 DC 02/20/20 08:14 2.5 MG Metoclopramide HCl (Reglan Vial) 10 mg 1X ONCE 02/20/20 07:15 02/20/20 07:16 DC 02/20/20 07:27 10 MG Octreotide Acetate (SandoSTATIN) 50 mcg 1X ONCE 02/20/20 07:15 02/20/20 07:16 DC 02/20/20 07:29 50 MCG Pantoprazole Sodium (PROTONIX VIAL for IV PUSH) 80 mg 1X ONCE 02/20/20 07:15 02/20/20 07:16 DC 02/20/20 07:27 80 MG Allergies Allergies Allergies Coded Allergies Type Severity Reaction Last Updated Verified adhesive tape Allergy Intermediate Rash 11/02/19 Yes Physical Exam Physical Exam Gen: NAD. Head: NC/AT Eyes: No scleral icterus. No conjunctival injection. ENT: MMM. Posterior OP clear. Neck: Supple. NT. CV: RRR. Peripheral pulses intact. Resp: CTAB. Abd: Soft. ND. Minimal upper abdominal tenderness. No rebound, guarding, rigidity. MSK: No peripheral cyanosis. No edema. Neuro: Awake and alert. Skin: Warm. Dry. Psych: Appropriate mood & affect. Current Patient Data Vital Signs Vital Signs Date Time Temp Pulse Resp B/P (MAP) Pulse Ox O2 Delivery O2 Flow Rate FiO2 02/20/20 07:18 99.6 97 16 152/91 (111) 97 Room Air 99.6 Lab Values Laboratory Tests Test 02/20/20 07:10 White Blood Count 6.6 x10^3/uL (4.0-11.0) Red Blood Count 4.98 x10^6/uL (4.30-5.70) Hemoglobin 15.9 g/dL (13.0-17.5) Hematocrit 47.9 % (39.0-53.0) Mean Corpuscular Volume 96 fL (79-100) Mean Corpuscular Hemoglobin 32 pg (25-35) Mean Corpuscular Hemoglobin Concent 33 g/dL (31-37) Red Cell Distribution Width 19.8 % (11.5-14.5) H Platelet Count 93 x10^3/uL (140-400) L Neutrophils (%) (Auto) 72 % (31-73) Lymphocytes (%) (Auto) 20 % (24-48) L Monocytes (%) (Auto) 7 % (0-9) Eosinophils (%) (Auto) 1 % (0-3) Basophils (%) (Auto) 1 % (0-3) Neutrophils # (Auto) 4.8 x10^3/uL (1.8-7.7) Lymphocytes # (Auto) 1.3 x10^3/uL (1.0-4.8) Monocytes # (Auto) 0.4 x10^3/uL (0.0-1.1) Eosinophils # (Auto) 0.1 x10^3/uL (0.0-0.7) Basophils # (Auto) 0.0 x10^3/uL (0.0-0.2) Prothrombin Time 17.6 SEC (11.7-14.0) H Prothrombin Time INR 1.5 (0.8-1.1) H Activated Partial Thromboplast Time 41 SEC (24-38) H Sodium Level 144 mmol/L (136-145) Potassium Level 3.7 mmol/L (3.5-5.1) Chloride Level 106 mmol/L (98-107) Carbon Dioxide Level 24 mmol/L (21-32) Anion Gap 14 (6-14) Blood Urea Nitrogen 5 mg/dL (8-26) L Creatinine 0.7 mg/dL (0.7-1.3) Estimated GFR (Cockcroft-Gault) 132.4 BUN/Creatinine Ratio 7 (6-20) Glucose Level 115 mg/dL (70-99) H Calcium Level 8.6 mg/dL (8.5-10.1) Magnesium Level 1.6 mg/dL (1.8-2.4) L Total Bilirubin 2.6 mg/dL (0.2-1.0) H Aspartate Amino Transferase (AST) 118 U/L (15-37) H Alanine Aminotransferase (ALT) 55 U/L (16-63) Alkaline Phosphatase 288 U/L (46-116) H Total Protein 8.2 g/dL (6.4-8.2) Albumin 3.4 g/dL (3.4-5.0) Albumin/Globulin Ratio 0.7 (1.0-1.7) L Lipase 45 U/L (73-393) L Ethyl Alcohol Level 206 mg/dL (0-10) H Laboratory Tests 02/20/20 07:10 Laboratory Tests 02/20/20 07:10 EKG EKG EKG performed 07. Sinus tachycardia. Heart rate 104. Normal intervals. No STEMI. Interpreted by me. Radiology/Procedures Radiology/Procedures [] Course & Med Decision Making Course & Med Decision Making Pertinent Labs and Imaging studies reviewed. (See chart for details) In summary, 30M with alcoholism, p/w upper abd pain, hematemesis, concerning for UGIB. Currently HDS. No AC use. Hb 15. Benign abd exam. Hx varices s/p banding at [facility]. Given protonix, octreotide, reglan. Will speak to GI and admit. Spoke with Dr. Florez of GI at [phone]. Was scoped last month. Ok with protonix/octreotide boluses, which have been given. Will admit. Dragon Disclaimer Dragon Disclaimer This electronic medical record was generated, in whole or in part, using a voice recognition dictation system. Departure Departure Impression: Primary Impression: Upper gastrointestinal bleeding Disposition: ADMITTED INPATIENT Admitting Physician: LEE (Dr. Pretty) Condition: GUARDED Referrals: UNKNOWN PCP NAME (PCP) PEMA GALLEGOS DO Feb 20, 2020 07:12
[2020-02-20] MEDS ORDERED: PANTOPRAZOLE IV PUSH 40 MG VIAL. IVP ONE (07:15)
[2020-02-20] MEDS ORDERED: METOCLOPRAMIDE HCL 10 MG/2 ML VIAL. IVP ONE (07:15)
[2020-02-20] MEDS ORDERED: OCTREOTIDE 100 MCG/ML VIAL IV ONE (07:15)
[2020-02-20 07:43] LABS: BASO % 1 % (0-3); EOS # 0.1 x10^3/uL (0.0-0.7); EOS % 1 % (0-3); HEMATOCRIT 47.9 % (39.0-53.0); HEMOGLOBIN 15.9 g/dL (13.0-17.5); LYMPH # 1.3 x10^3/uL (1.0-4.8); LYMPH % 20 % (24-48); MEAN CORPUSCULAR HEMOGLOBIN 32 pg (25-35); MEAN CORPUSCULAR HGB CONC 33 g/dL (31-37); MEAN CORPUSCULAR VOLUME 96 fL (79-100); MONO # 0.4 x10^3/uL (0.0-1.1); MONO % 7 % (0-9); NEUT # 4.8 x10^3/uL (1.8-7.7); NEUT % 72 % (31-73); PLATELET COUNT 93 x10^3/uL (140-400); RED BLOOD COUNT 4.98 x10^6/uL (4.30-5.70); RED CELL DISTRIBUTION WIDTH 19.8 % (11.5-14.5); WHITE BLOOD COUNT 6.6 x10^3/uL (4.0-11.0)
[2020-02-20 07:54] LABS: CALCIUM 8.6 mg/dL (8.5-10.1); CREATININE 0.7 mg/dL (0.7-1.3); GFR 132.4; POTASSIUM 3.7 mmol/L (3.5-5.1)
[2020-02-20 07:56] LABS: PROTHROMBIN TIME PATIENT 17.6 SEC (11.7-14.0)
[2020-02-20 07:59] LABS: ALBUMIN 3.4 g/dL (3.4-5.0); ALBUMIN/GLOBULIN RATIO 0.7 (1.0-1.7); MAGNESIUM 1.6 mg/dL (1.8-2.4); TOTAL BILIRUBIN 2.6 mg/dL (0.2-1.0); TOTAL PROTEIN 8.2 g/dL (6.4-8.2)
[2020-02-20] MEDS ORDERED: HALOPERIDOL LACTATE 5 MG/ML VIAL. ONE (08:08)
[2020-02-20] MEDS ORDERED: HALOPERIDOL LACTATE 5 MG/ML VIAL. IVP ONE (08:15)
[2020-02-20] MEDS ORDERED: ONDANSETRON PF 4 MG/2 ML VIAL. IV PRN (08:30)
[2020-02-20] MEDS ORDERED: busPIRone 5 MG TABLET. PO PRN (09:15)
[2020-02-20] MEDS ORDERED: cloNIDine HCL 0.1 MG TABLET PO PRN (09:15)
[2020-02-20] MEDS ORDERED: HALOPERIDOL LACTATE 5 MG/ML VIAL. IVP PRN (09:15)
--- NOTE | 2020-02-20 09:30 | NUR ---
Pt arrived on unit via bed at 0930 . Pt currently on room air and is complaining of abdominal pain and pain in his collar bone. Pt rates it at an 8.
[2020-02-20 09:45] VITALS: BP 127/71
[2020-02-20] MEDS: BENZTROPINE MESYLATE 1 MG TABLET. PO SCH ×3 (09:45→23:46)
--- NOTE | 2020-02-20 09:50 | NUR ---
This RN called and spoke with Dr. Pretty in regards to pt's PO medications and NPO status. Dr. Pretty stated that he could take his gabapentin with a sip of water then continue his other medications tomorrow.
[2020-02-20] MEDS: hydrOXYzine 25 MG TABLET PO SCH ×4 (09:54→23:48)
[2020-02-20] MEDS: MULTIVITAMIN with MINERAL TABLET. PO SCH (09:55)
[2020-02-20] MEDS: LACTULOSE 20 GM/30 ML SOLUTION. PO SCH ×4 (09:55→23:44)
[2020-02-20] MEDS: rifAXIMin 550 MG TABLET PO SCH ×3 (09:55→23:48)
[2020-02-20] MEDS: THIAMINE 100 MG TABLET. PO SCH (09:55)
[2020-02-20] MEDS: ZIPRASIDONE 20 MG CAPSULE PO SCH ×3 (09:55→23:42)
[2020-02-20] MEDS: FOLIC ACID 1 MG TABLET. PO SCH (09:55)
[2020-02-20] MEDS ORDERED: MAGNESIUM SULFATE 4GM 100 ML IV ONE (10:00)
[2020-02-20] MEDS: PANTOPRAZOLE IV PUSH 40 MG VIAL. IVP SCH ×2 (10:40→16:02)
[2020-02-20 11:03] VITALS: BP 132/68
[2020-02-20] MEDS ORDERED: FLU VAX QS 2019-20 (36MOS+)/PF 0.5 ML SYRINGE. VAX IM ONE (11:30)
[2020-02-20] MEDS: FERROUS SULFATE 325 MG TABLET. PO SCH (12:00)
[2020-02-20] MEDS: GABAPENTIN 300 MG CAPSULE. PO SCH ×4 (12:11→23:45)
--- NOTE | 2020-02-20 13:52 | PDOC2 ---
GI CONSULT Reason For Consult: Hematemesis HPI: HPI: 30 y/o male well-known to us. Received oral consult from ER, so seeing. Long h/o alcohol abuse; says was dry until yesterday. After drinking, abdominal pain, N, V and after a few episodes, saw blood in emesis. Witnessed in ER. Has not had vomiting on the floor. Denies melena and in fact hasn't stooled. Pain as usual epigastric. We have seen with similar presentations in the past. Had EGD a month ago remarkable for esophageal scarring from banding at [facility] and portal gastropathy, but only small residual varices w/o evidence for recent bleeding. Has had some degree of GERD on prior scopes as well. On one occasion, had the M-W syndrome. Never have seen PUD. Known gallstones unclearly symptomatic. Hasn't had documented pancreatitis here that I can recall. Known cirrhosis (with mild pancytopenia) felt to be mostly due to alcohol. Is AAT heterozygote. Prior hepatis w/u's negative. AFP in December normal. "Liver lesions" on CT in December unclearly meaningful CEA fhen mildly elevated. Occasionally smokes. On and off the wagon re: alcohol. Variable stools. No overt blood in stool. Known diverticulosis on imaging. GIFH positive for GERD/Brown's in mother and AAT deficiency in father. No prior colonoscopy here. PMH: PMH: Otherwise unremarkable. No prior major surgery. FH: Family History: Other Social History: Smoke: <1 pack per day ALCOHOL: heavy Drugs: Marijuana ROS: GEN: Denies fevers, chills, sweats HEENT: Denies blurred vision, sore throat CV: Denies chest pain RESP: Denies shortness of air, cough GI: Per HPI : Denies hematuria, dysuria ENDO: Denies weight changes NEURO: Denies confusion, dizziness MSK: Denies weakness, joint pain/swelling, recently fractured right clavicle SKIN: Denies jaundice, pruritus Vitals: Vitals: Vital Signs Date Time Temp Pulse Resp B/P (MAP) Pulse Ox O2 Delivery O2 Flow Rate FiO2 02/20/20 11:03 98.1 140 16 132/68 (89) 94 Room Air 98.1 Labs: Labs: Laboratory Tests Test 02/20/20 07:10 White Blood Count 6.6 x10^3/uL (4.0-11.0) Red Blood Count 4.98 x10^6/uL (4.30-5.70) Hemoglobin 15.9 g/dL (13.0-17.5) Hematocrit 47.9 % (39.0-53.0) Mean Corpuscular Volume 96 fL (79-100) Mean Corpuscular Hemoglobin 32 pg (25-35) Mean Corpuscular Hemoglobin Concent 33 g/dL (31-37) Red Cell Distribution Width 19.8 % (11.5-14.5) Platelet Count 93 x10^3/uL (140-400) Neutrophils (%) (Auto) 72 % (31-73) Lymphocytes (%) (Auto) 20 % (24-48) Monocytes (%) (Auto) 7 % (0-9) Eosinophils (%) (Auto) 1 % (0-3) Basophils (%) (Auto) 1 % (0-3) Neutrophils # (Auto) 4.8 x10^3/uL (1.8-7.7) Lymphocytes # (Auto) 1.3 x10^3/uL (1.0-4.8) Monocytes # (Auto) 0.4 x10^3/uL (0.0-1.1) Eosinophils # (Auto) 0.1 x10^3/uL (0.0-0.7) Basophils # (Auto) 0.0 x10^3/uL (0.0-0.2) Prothrombin Time 17.6 SEC (11.7-14.0) Prothromb Time International Ratio 1.5 (0.8-1.1) Activated Partial Thromboplast Time 41 SEC (24-38) Sodium Level 144 mmol/L (136-145) Potassium Level 3.7 mmol/L (3.5-5.1) Chloride Level 106 mmol/L (98-107) Carbon Dioxide Level 24 mmol/L (21-32) Anion Gap 14 (6-14) Blood Urea Nitrogen 5 mg/dL (8-26) Creatinine 0.7 mg/dL (0.7-1.3) Estimated GFR (Cockcroft-Gault) 132.4 BUN/Creatinine Ratio 7 (6-20) Glucose Level 115 mg/dL (70-99) Calcium Level 8.6 mg/dL (8.5-10.1) Magnesium Level 1.6 mg/dL (1.8-2.4) Total Bilirubin 2.6 mg/dL (0.2-1.0) Aspartate Amino Transf (AST/SGOT) 118 U/L (15-37) Alanine Aminotransferase (ALT/SGPT) 55 U/L (16-63) Alkaline Phosphatase 288 U/L (46-116) Total Protein 8.2 g/dL (6.4-8.2) Albumin 3.4 g/dL (3.4-5.0) Albumin/Globulin Ratio 0.7 (1.0-1.7) Lipase 45 U/L (73-393) Ethyl Alcohol Level 206 mg/dL (0-10) Allergies: Coded Allergies: adhesive tape (Verified Allergy, Intermediate, Rash, 11/02/19) Medications: Current Medications Medications (Trade) Dose Ordered Sig/Renee Route PRN Reason Start Time Stop Time Status Last Admin Dose Admin Pantoprazole Sodium (PROTONIX VIAL for IV PUSH) 80 mg 1X ONCE IVP 02/20/20 07:15 02/20/20 07:16 DC 02/20/20 07:27 Octreotide Acetate (SandoSTATIN) 50 mcg 1X ONCE IV 02/20/20 07:15 02/20/20 07:16 DC 02/20/20 07:29 Metoclopramide HCl (Reglan Vial) 10 mg 1X ONCE IVP 02/20/20 07:15 02/20/20 07:16 DC 02/20/20 07:27 Haloperidol Lactate (Haldol Inj) 2.5 mg 1X ONCE IVP 02/20/20 08:15 02/20/20 08:16 DC 02/20/20 08:14 Lorazepam (Ativan Inj) 1 mg 1X ONCE IVP 02/20/20 09:00 02/20/20 09:03 DC 02/20/20 09:00 Magnesium Sulfate 100 ml @ 25 mls/hr 1X ONCE IV 02/20/20 10:00 02/20/20 13:59 02/20/20 10:40 Pantoprazole Sodium (PROTONIX VIAL for IV PUSH) 40 mg BIDAC IVP 02/20/20 09:30 02/20/20 10:40 Gabapentin (Neurontin) 300 mg TID PO 02/20/20 10:00 02/20/20 12:11 Influenza Virus Vaccine Quadrival (Afluria Quad 2018- (3yr Up) Syringe) 0.5 ml ONCE ONCE VAX IM 02/20/20 11:30 02/20/20 11:34 DC 02/20/20 12:13 PE: GEN: NAD HEENT: Atraumatic, PERRLA LUNGS: CTAB HEART: RRR, no murmurs ABD: NABS, S/ND/mild epigastric tenderness, no masses EXTREMITY: No edema SKIN: No rashes, no jaundice NEURO/PSYCH: A & O 3 A/P: A/P: IMP: Hematemesis. Normal BUN and hemoglobin as well as lack of stools or melena not suggestive of major bleeding. History c/w M-W syndrome. Gallstones. Cirrhosis, likely from alcohol. AAT heterozygote.//MZ pnenotype Diverticulosis, asymptomatic. REC: Continue IVF's, IV PPI for now. Observe for w/drawal issues. Follow clinically, labs re: any bleeding. Would reserve EGD for recurrent major bleeding. Metoclopramide qid x 48 hours to prevent emesis and further injury if has M-W. Hold at [employer] po for now. MEENA HASTINGS MD Feb 20, 2020 13:52
[2020-02-20 14:05] LABS: HEMATOCRIT 42.7 % (39.0-53.0); HEMOGLOBIN 14.3 g/dL (13.0-17.5); RED BLOOD COUNT 4.46 x10^6/uL (4.30-5.70); RED CELL DISTRIBUTION WIDTH 19.4 % (11.5-14.5); WHITE BLOOD COUNT 6.6 x10^3/uL (4.0-11.0)
--- NOTE | 2020-02-20 14:18 | PDOC1 ---
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 His last 2 episodes vomiting were of dark emesis this morning including an estimated 50 mL of gross hematemesis according to EMS just prior to arrival and 150cc in the ED during my examination. No anticoagulant or significant NSAID use. No aggravating or alleviating factors. Hb 15.9, platelets 93. Bilirubin 2.6, INR 1.5, AST 118, Mg 1.6, ETOH 206 at 0710. He was given IV protonix 80mg and IV zofran and called for admission with GI consultation. EKG sinus tachycardia Prior admissions to [facility]: 06/21/2017 - 06/25/2017 - Suicidal ideation and alcoholic intoxication. PAT team for suicidal ideation and was cleared for discharge to home rather than inpatient psychiatric admission. EGD 06/25/2017 - small varices and patchy portal gastropathy 06/30/2019 - 07/07/2019 - EGD on 07/01/2019 grade 2 varices with scarring, probably from prior banding in the distal third of the esophagus. Two 1-2 mm linear ulcerations were noted in the distal esophagus. Diffuse portal hypertensive gastropathy was also noted. 06/16/2019 - 06/22/2019 - UGIB 06/23/2019 - 09/02/2019 - Suicide attempt, cut wrists and ETOH intoxication, acute psychosis. Involuntarily committed to [facility] 09/10/2019 - 09/14/2019 - ETOH intoxication 09/16/2019 - 09/21/2019 - Wrist cutting, mother called adult protective services. ETOH intoxication 11/02/2019 - 11/03/2019 - GB disease 12/19/2019 - 12/26/2019 - ETOH intoxication, suicidal ideation 01/10/2020 - 01/13/2020 - ETOH intoxication 01/22/2020 - 01/24/2020 - ETOH intoxication Past Medical History Cardiovascular: HTN GI: GI bleed, Gastritis, Other Hepatobiliary: Cirrhosis, Other Psych: Anxiety, Addictions, Depression, Schizophrenia, Other Past Surgical History Past Surgical History: No pertinent history Family History Family History: Alcohol Abuse, Hypertension, Family History Unknown, Other Social History Smoke: <1 pack per day ALCOHOL: heavy Drugs: Marijuana Current Medications Current Medications Current Medications Pantoprazole Sodium (PROTONIX VIAL for IV PUSH) 80 mg 1X ONCE IVP Last administered on 02/20/20at 07:27; Start 02/20/20 at 07:15; Stop 02/20/20 at 07:16; Status DC Octreotide Acetate (SandoSTATIN) 50 mcg 1X ONCE IV Last administered on 02/20/20at 07:29; Start 02/20/20 at 07:15; Stop 02/20/20 at 07:16; Status DC Metoclopramide HCl (Reglan Vial) 10 mg 1X ONCE IVP Last administered on 02/20/20at 07:27; Start 02/20/20 at 07:15; Stop 02/20/20 at 07:16; Status DC Haloperidol Lactate (Haldol Inj) 5 mg STK-MED ONCE .ROUTE ; Start 02/20/20 at 08:08; Stop 02/20/20 at 08:09; Status DC Haloperidol Lactate (Haldol Inj) 2.5 mg 1X ONCE IVP Last administered on 02/20/20at 08:14; Start 02/20/20 at 08:15; Stop 02/20/20 at 08:16; Status DC Ondansetron HCl (Zofran) 4 mg PRN Q8HRS PRN IV NAUSEA/VOMITING; Start 02/20/20 at 08:30; Stop 02/20/20 at 09:15; Status DC Lorazepam (Ativan Inj) 1 mg 1X ONCE IVP Last administered on 02/20/20at 09:00; Start 02/20/20 at 09:00; Stop 02/20/20 at 09:03; Status DC Ondansetron HCl (Zofran) 4 mg PRN Q4HRS PRN IV NAUSEA/VOMITING; Start 02/20/20 at 09:15 Magnesium Sulfate 100 ml @ 25 mls/hr 1X ONCE IV Last administered on 02/20/20at 10:40; Start 02/20/20 at 10:00; Stop 02/20/20 at 13:59; Status DC Pantoprazole Sodium (PROTONIX VIAL for IV PUSH) 40 mg BIDAC IVP Last administered on 02/20/20at 10:40; Start 02/20/20 at 09:30 Lorazepam (Ativan Inj) 1 mg PRN Q4HRS PRN IV For CIWA 8-14; Start 02/20/20 at 09:15 Haloperidol Lactate (Haldol Inj) 5 mg PRN Q4HRS PRN IVP Hallucinatns,Confusn,Delirium; Start 02/20/20 at 09:15 Buspirone HCl (Buspar) 5 mg PRN TID PRN PO Anxiety; Start 02/20/20 at 09:15 Clonidine HCl (Catapres) 0.1 mg PRN Q1HR PRN PO SBP > 180 or DBP > 100, MRX3; Start 02/20/20 at 09:15 Ferrous Sulfate (Feosol) 325 mg DAILYWBKFT PO ; Start 02/20/20 at 12:00 Folic Acid (Folic Acid) 1 mg DAILY PO ; Start 02/20/20 at 10:00 Hydromorphone HCl (Dilaudid) 2 mg PRN Q8HRS PRN PO MODERTE TO SEVERE PAIN; Start 02/20/20 at 09:15 Hydroxyzine HCl (Atarax) 75 mg TID PO ; Start 02/20/20 at 10:00 Lactulose (Lactulose) 20 gm TID PO ; Start 02/20/20 at 10:00 Olanzapine (ZyPREXA) 5 mg QHS PO ; Start 02/20/20 at 21:00 Pantoprazole Sodium (Protonix) 40 mg DAILYAC PO ; Start 02/21/20 at 07:30; Status UNV Prazosin HCl (Minipress) 1 mg QHS PO ; Start 02/20/20 at 21:00 Rifaximin (Xifaxan) 550 mg Q12HR PO ; Start 02/20/20 at 10:00 Trazodone HCl (Desyrel) 100 mg QHS PO ; Start 02/20/20 at 21:00 Ziprasidone (Geodon) 20 mg BID PO ; Start 02/20/20 at 10:00 Benztropine Mesylate (Cogentin) 0.5 mg BID PO ; Start 02/20/20 at 09:45 Multivitamins (Thera M Plus) 1 tab DAILY PO ; Start 02/20/20 at 10:00 Thiamine Mononitrate (Vitamin B-1) 100 mg DAILY PO ; Start 02/20/20 at 10:00 Gabapentin (Neurontin) 300 mg TID PO Last administered on 02/20/20at 12:11; Start 02/20/20 at 10:00 Influenza Virus Vaccine Quadrival (Afluria Quad 2019- (3yr Up) Syringe) 0.5 ml ONCE ONCE VAX IM Last administered on 02/20/20at 12:13; Start 02/20/20 at 11:30; Stop 02/20/20 at 11:34; Status DC Metoclopramide HCl (Reglan Vial) 10 mg Q6HRS IVP ; Start 02/20/20 at 14:00 Active Scripts Active Buspirone Hcl 5 Mg Tablet 5 Mg PO PRN TID PRN 30 Days Dilaudid (Hydromorphone Hcl) 2 Mg Tablet 2 Mg PO PRN Q8HRS PRN 6 Days Benztropine Mesylate 0.5 Mg Tablet 1 Tab PO BID 30 Days Geodon (Ziprasidone Hcl) 20 Mg Capsule 20 Mg PO BID 30 Days Trazodone Hcl 100 Mg Tablet 100 Mg PO QHS 30 Days Catapres (Clonidine Hcl) 0.1 Mg Tablet 0.1 Mg PO PRN Q1HR PRN 7 Days Can take for withdrawal symptoms Xifaxan (Rifaximin) 550 Mg Tablet 550 Mg PO Q12HR 30 Days Lactulose 20 Gm/30 Ml Solution 20 Gm PO TID 30 Days Prazosin Hcl 1 Mg Capsule 1 Cap PO QHS 30 Days Pantoprazole Sodium (Pantoprazole Sodium) 40 Mg Tablet.dr 40 Mg PO DAILYAC Multivitamins (Multivitamin) 1 Each Tablet 1 Tab PO DAILY Folic Acid 1 Mg Tablet 1 Tab PO DAILY Vitamin B-1 (Thiamine Hcl) 100 Mg Tablet 100 Mg PO DAILY 30 Days Feosol (Ferrous Sulfate) 325 Mg Tablet 325 Mg PO DAILYWBKFT 30 Days Reported Zyprexa (Olanzapine) 5 Mg Tablet 1 Tab PO QHS Hydroxyzine Hcl 25 Mg Tablet 3 Tab PO TID Allergies Allergies: Coded Allergies: adhesive tape (Verified Allergy, Intermediate, Rash, 12/3/19) ROS General: YES: Fatigue, Malaise; No: Chills, Night Sweats, Appetite, Other PSYCHOLOGICAL ROS: YES: Anxiety; No: Behavioral Disorder, Concentration difficultie, Decreased libido, Depression, Disorientation, Hallucinations, Hostility, Irritablity, Memory difficulties, Mood Swings, Obsessive thoughts, Physical abuse, Sexual abuse, Sleep disturbances, Suicidal ideation, Other Eyes: No Blurry vision, No Decreased vision, No Double vision, No Dry eyes, No Excessive tearing, No Eye Pain, No Itchy Eyes, No Loss of vision, No Photophobia, No Scotomata, No Uses contacts, No Uses glasses, No Other HEENT: No: Heacaches, Visual Changes, Hearing change, Nasal congestion, Nasal discharge, Oral lesions, Sinus pain, Sore Throat, Epistaxis, Sneezing, Snoring, Tinnitus, Vertigo, Vocal changes, Other ALLERGY AND IMMUNOLOGY: No: Hives, Insect Bite Sensitivity, Itchy/Watery Eyes, Nasal Congestion, Post Nasal Drip, Seasonal Allergies, Other Hematological and Lymphatic: YES: Bleeding Problems; No: Blood Clots, Blood Transfusions, Brusing, Night Sweats, Pallor, Swollen Lymph Nodes, Other ENDOCRINE: No: Breast Changes, Galactorrhea, Hair Pattern Changes, Hot Flashes, Malaise/lethargy, Mood Swings, Palpitations, Polydipsia/polyuria, Skin Changes, Temperature Intolerance, Unexpected Weight Changes, Other Breast: No New/Changing Breast Lumps, No Nipple changes, No Nipple discharge, No Other Respiratory: No: Cough, Hemoptysis, Orthopnea, Pleuritic Pain, Shortness of breath, SOB with excertion, Sputum Changes, Stridor, Tachypnea, Wheezing, Other Cardiovascular: No Chest Pain, No Palpitations, No Orthopnea, No Paroxysmal Noc. Dyspnea, No Edema, No Lt Headedness, No Other Gastrointestinal: No Nausea, No Vomiting, No Abdominal Pain, No Diarrhea, No Constipation, No Melena, No Hematochezia, No Other Genitourinary: No Dysuria, No Frequency, No Incontinence, No Hematuria, No Retention, No Discharge, No Urgency, No Pain, No Flank Pain, No Other, No , No , No , No , No , No , No Musculoskeletal: Yes Gait Disturbance; No Joint Pain, No Joint Stiffness, No Joint Swelling, No Muscle Pain, No Muscular Weakness, No Pain In:, No Swelling In:, No Other Neurological: No Behavorial Changes, No Bowel/Bladder ControlChng, No Confusion, No Dizziness, No Gait Disturbance, No Headaches, No Impaired Coord/balance, No Memory Loss, No Numbness/Tingling, No Seizures, No Speech Problems, No Tremors, No Visual Changes, No Weakness, No Other Skin: No Dry Skin, No Eczema, No Hair Changes, No Lumps, No Mole Changes, No Mottling, No Nail Changes, No Pruritus, No Rash, No Skin Lesion Changes, No Other, No Acne Physical Exam General: Alert, Cooperative, mild distress HEENT: Atraumatic, PERRLA, EOMI, Mucous membr. moist/pink Lungs: Clear to auscultation, Normal air movement Heart: S1S2, RRR, no thrills, no rubs, no gallops, no murmurs Abdomen: Normal bowel sounds, Soft, No tenderness, No hepatosplenomegaly, No masses Rectal Exam: not examined Extremities: No clubbing, No cyanosis, No edema, Normal pulses, Other (Tende rness on right clavicle) Skin: No rashes, No breakdown, No significant lesion Neuro: Normal speech, Strength at 5/5 X4 ext, Normal tone, Sensation intact, Cranial nerves 3-12 NL, Reflexes 2+ Psych/Mental Status: Other (Intoxicated) Vitals Vitals Vital Signs Date Time Temp Pulse Resp B/P (MAP) Pulse Ox O2 Delivery O2 Flow Rate FiO2 02/20/20 11:03 98.1 140 16 132/68 (89) 94 Room Air 98.1 Labs Labs Laboratory Tests Test 02/20/20 07:10 02/20/20 13:55 White Blood Count 6.6 x10^3/uL (4.0-11.0) 6.6 x10^3/uL (4.0-11.0) Red Blood Count 4.98 x10^6/uL (4.30-5.70) 4.46 x10^6/uL (4.30-5.70) Hemoglobin 15.9 g/dL (13.0-17.5) 14.3 g/dL (13.0-17.5) Hematocrit 47.9 % (39.0-53.0) 42.7 % (39.0-53.0) Mean Corpuscular Volume 96 fL (79-100) 96 fL (79-100) Mean Corpuscular Hemoglobin 32 pg (25-35) 32 pg (25-35) Mean Corpuscular Hemoglobin Concent 33 g/dL (31-37) 34 g/dL (31-37) Red Cell Distribution Width 19.8 % (11.5-14.5) 19.4 % (11.5-14.5) Platelet Count 93 x10^3/uL (140-400) 84 x10^3/uL (140-400) Neutrophils (%) (Auto) 72 % (31-73) Lymphocytes (%) (Auto) 20 % (24-48) Monocytes (%) (Auto) 7 % (0-9) Eosinophils (%) (Auto) 1 % (0-3) Basophils (%) (Auto) 1 % (0-3) Neutrophils # (Auto) 4.8 x10^3/uL (1.8-7.7) Lymphocytes # (Auto) 1.3 x10^3/uL (1.0-4.8) Monocytes # (Auto) 0.4 x10^3/uL (0.0-1.1) Eosinophils # (Auto) 0.1 x10^3/uL (0.0-0.7) Basophils # (Auto) 0.0 x10^3/uL (0.0-0.2) Prothrombin Time 17.6 SEC (11.7-14.0) Prothromb Time International Ratio 1.5 (0.8-1.1) Activated Partial Thromboplast Time 41 SEC (24-38) Sodium Level 144 mmol/L (136-145) Potassium Level 3.7 mmol/L (3.5-5.1) Chloride Level 106 mmol/L (98-107) Carbon Dioxide Level 24 mmol/L (21-32) Anion Gap 14 (6-14) Blood Urea Nitrogen 5 mg/dL (8-26) Creatinine 0.7 mg/dL (0.7-1.3) Estimated GFR (Cockcroft-Gault) 132.4 BUN/Creatinine Ratio 7 (6-20) Glucose Level 115 mg/dL (70-99) Calcium Level 8.6 mg/dL (8.5-10.1) Magnesium Level 1.6 mg/dL (1.8-2.4) Total Bilirubin 2.6 mg/dL (0.2-1.0) Aspartate Amino Transf (AST/SGOT) 118 U/L (15-37) Alanine Aminotransferase (ALT/SGPT) 55 U/L (16-63) Alkaline Phosphatase 288 U/L (46-116) Total Protein 8.2 g/dL (6.4-8.2) Albumin 3.4 g/dL (3.4-5.0) Albumin/Globulin Ratio 0.7 (1.0-1.7) Lipase 45 U/L (73-393) Ethyl Alcohol Level 206 mg/dL (0-10) Laboratory Tests Test 02/20/20 07:10 02/20/20 13:55 White Blood Count 6.6 x10^3/uL (4.0-11.0) 6.6 x10^3/uL (4.0-11.0) Red Blood Count 4.98 x10^6/uL (4.30-5.70) 4.46 x10^6/uL (4.30-5.70) Hemoglobin 15.9 g/dL (13.0-17.5) 14.3 g/dL (13.0-17.5) Hematocrit 47.9 % (39.0-53.0) 42.7 % (39.0-53.0) Mean Corpuscular Volume 96 fL (79-100) 96 fL (79-100) Mean Corpuscular Hemoglobin 32 pg (25-35) 32 pg (25-35) Mean Corpuscular Hemoglobin Concent 33 g/dL (31-37) 34 g/dL (31-37) Red Cell Distribution Width 19.8 % (11.5-14.5) 19.4 % (11.5-14.5) Platelet Count 93 x10^3/uL (140-400) 84 x10^3/uL (140-400) Neutrophils (%) (Auto) 72 % (31-73) Lymphocytes (%) (Auto) 20 % (24-48) Monocytes (%) (Auto) 7 % (0-9) Eosinophils (%) (Auto) 1 % (0-3) Basophils (%) (Auto) 1 % (0-3) Neutrophils # (Auto) 4.8 x10^3/uL (1.8-7.7) Lymphocytes # (Auto) 1.3 x10^3/uL (1.0-4.8) Monocytes # (Auto) 0.4 x10^3/uL (0.0-1.1) Eosinophils # (Auto) 0.1 x10^3/uL (0.0-0.7) Basophils # (Auto) 0.0 x10^3/uL (0.0-0.2) Prothrombin Time 17.6 SEC (11.7-14.0) Prothromb Time International Ratio 1.5 (0.8-1.1) Activated Partial Thromboplast Time 41 SEC (24-38) Sodium Level 144 mmol/L (136-145) Potassium Level 3.7 mmol/L (3.5-5.1) Chloride Level 106 mmol/L (98-107) Carbon Dioxide Level 24 mmol/L (21-32) Anion Gap 14 (6-14) Blood Urea Nitrogen 5 mg/dL (8-26) Creatinine 0.7 mg/dL (0.7-1.3) Estimated GFR (Cockcroft-Gault) 132.4 BUN/Creatinine Ratio 7 (6-20) Glucose Level 115 mg/dL (70-99) Calcium Level 8.6 mg/dL (8.5-10.1) Magnesium Level 1.6 mg/dL (1.8-2.4) Total Bilirubin 2.6 mg/dL (0.2-1.0) Aspartate Amino Transf (AST/SGOT) 118 U/L (15-37) Alanine Aminotransferase (ALT/SGPT) 55 U/L (16-63) Alkaline Phosphatase 288 U/L (46-116) Total Protein 8.2 g/dL (6.4-8.2) Albumin 3.4 g/dL (3.4-5.0) Albumin/Globulin Ratio 0.7 (1.0-1.7) Lipase 45 U/L (73-393) Ethyl Alcohol Level 206 mg/dL (0-10) VTE Prophylaxis Ordered VTE Prophylaxis Devices: No VTE Pharmacological Prophylaxi: Contraindicated Assessment/Plan Assessment/Plan A/P: Hematemeis - Hb stable. GI consulted. This sounds like a suresh-christianson tear based on history EtOH abuse - with acute intoxication on admission. georgi Silvestre. Will add gabapentin based on new clinical trial data to help him avoid relapse Acute alcohol intoxication - will cont georgi DUNN Major depression - needs outpatient treatment Right clavicle fracture - sling and oral diluadid Thrombocytopenia - likely related to liver disease, will minimize his exposure to 1st generation anti-psychotics based on this. 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 Will cont his home medications which have helped reduce his hospitalizations Smoker - counseled on cessation Alpha-1 antitrypsin deficiency - MZ mutation - increases his risk of liver disease given his ETOH abuse DJD - pain control Transaminitis - fits ETOH pattern. will follow Hepatic cirrhosis and findings of portal hypertension , C/W END ORGAN INJURY. INR 1.5 and Bilirubin 2.6 Esophageal varices - numerous, small, though Gallstone lodged at the gallbladder neck, no gallbladder wall thickening - seen by general surgery previously, no indication for surgery FEN - NPO PPX - Protonix, SCDs FULL CODE Dispo - med tele for acute UGIB BENJIE CHANEL MD Feb 20, 2020 14:18
[2020-02-20] MEDS: METOCLOPRAMIDE HCL 10 MG/2 ML VIAL. IVP SCH ×2 (14:23→21:45)
[2020-02-20] MEDS ORDERED: HYDROmorphone 2 MG/ML VIAL IVP ONE (14:45)
[2020-02-20 15:25] VITALS: BP 152/83
[2020-02-20 19:00] VITALS: BP 133/74
[2020-02-20] MEDS: PRAZOSIN 1 MG CAPSULE. PO SCH ×2 (21:00→23:47)
[2020-02-20] MEDS: OLANZapine 5 MG TABLET PO SCH ×2 (21:00→23:43)
[2020-02-20] MEDS: traZODone 100 MG TABLET. PO SCH ×2 (21:00→23:43)
--- NOTE | 2020-02-20 21:16 | EKG ---
[facility] [address] [place] [address] Test Date: 2020-02-20 Test Time: 07:18:35 Pat Name: DENISHA MCFARLAND Department: Room: 1 1 Gender: M [employer]: : 1990 Requested By: PEMA GALLEGOS Order Number: [id number] Reading MD: Measurements Intervals [place] Rate: 134 P: -129 IA: 86 QRS: -3 QRSD: 84 T: 28 QT: 340 QTc: 515 Interpretive Statements SUPRAVENTRICULAR TACHYCARDIA POSSIBLE LEFT ATRIAL ABNORMALITY LEFTWARD AXIS QRS(T) CONTOUR ABNORMALITY CONSIDER ANTEROSEPTAL MYOCARDIAL DAMAGE POSSIBLY ABNORMAL ECG RI6.01 No previous ECG available for comparison
[2020-02-20 21:29] LABS: HEMATOCRIT 43.8 % (39.0-53.0); HEMOGLOBIN 14.6 g/dL (13.0-17.5); RED BLOOD COUNT 4.6 x10^6/uL (4.30-5.70); RED CELL DISTRIBUTION WIDTH 19.7 % (11.5-14.5); WHITE BLOOD COUNT 9.3 x10^3/uL (4.0-11.0)
[2020-02-20] MEDS ORDERED: MULTIVIT INFUSN,ADULT 4,VIT K 10 ML, THIAMINE INJ 100 MG, FOLIC ACID INJ 1 MG in IV NOR... IV ONE (21:45)
[2020-02-20] MEDS: HYDROmorphone 2 MG/ML VIAL IVP PRN (22:28)
[2020-02-20] MEDS: ONDANSETRON PF 4 MG/2 ML VIAL. IV PRN (22:51)
[2020-02-20 23:04] VITALS: BP 145/94
[2020-02-21] MEDS: HYDROmorphone 2 MG/ML VIAL IVP PRN ×4 (02:30→22:14)
[2020-02-21] MEDS: ONDANSETRON PF 4 MG/2 ML VIAL. IV PRN ×2 (02:31→20:00)
[2020-02-21 03:04] VITALS: BP 111/67
[2020-02-21 04:13] LABS: BASO # 0.1 x10^3/uL (0.0-0.2); BASO % 1 % (0-3); EOS # 0.1 x10^3/uL (0.0-0.7); EOS % 1 % (0-3); HEMATOCRIT 39.5 % (39.0-53.0); HEMOGLOBIN 13.1 g/dL (13.0-17.5); LYMPH # 1.3 x10^3/uL (1.0-4.8); LYMPH % 21 % (24-48); MEAN CORPUSCULAR HEMOGLOBIN 32 pg (25-35); MEAN CORPUSCULAR HGB CONC 33 g/dL (31-37); MEAN CORPUSCULAR VOLUME 96 fL (79-100); MONO # 0.7 x10^3/uL (0.0-1.1); MONO % 12 % (0-9); NEUT # 3.9 x10^3/uL (1.8-7.7); NEUT % 65 % (31-73); PLATELET COUNT 76 x10^3/uL (140-400); RED CELL DISTRIBUTION WIDTH 19.6 % (11.5-14.5)
[2020-02-21 04:35] LABS: ALBUMIN 2.9 g/dL (3.4-5.0); ALBUMIN/GLOBULIN RATIO 0.8 (1.0-1.7); CALCIUM 8.3 mg/dL (8.5-10.1); GFR 87.7; MAGNESIUM 2.1 mg/dL (1.8-2.4); POTASSIUM 3.6 mmol/L (3.5-5.1); TOTAL BILIRUBIN 3.1 mg/dL (0.2-1.0); TOTAL PROTEIN 6.5 g/dL (6.4-8.2)
[2020-02-21] MEDS: METOCLOPRAMIDE HCL 10 MG/2 ML VIAL. IVP SCH ×4 (06:15→17:48)
[2020-02-21] MEDS ORDERED: PANTOPRAZOLE 40 MG TABLET.DR. PO SCH (07:30)
[2020-02-21 07:35] VITALS: BP 135/72
[2020-02-21] MEDS: GABAPENTIN 300 MG CAPSULE. PO SCH ×3 (09:40→22:15)
[2020-02-21] MEDS: ZIPRASIDONE 20 MG CAPSULE PO SCH ×2 (09:40→22:14)
[2020-02-21] MEDS: rifAXIMin 550 MG TABLET PO SCH ×2 (09:40→22:15)
[2020-02-21] MEDS: hydrOXYzine 25 MG TABLET PO SCH ×3 (09:40→22:14)
[2020-02-21] MEDS: FOLIC ACID 1 MG TABLET. PO SCH (09:40)
[2020-02-21] MEDS: THIAMINE 100 MG TABLET. PO SCH (09:40)
[2020-02-21] MEDS: BENZTROPINE MESYLATE 1 MG TABLET. PO SCH ×2 (09:40→22:15)
[2020-02-21] MEDS: LACTULOSE 20 GM/30 ML SOLUTION. PO SCH ×3 (09:41→22:14)
[2020-02-21] MEDS: MULTIVITAMIN with MINERAL TABLET. PO SCH (09:41)
[2020-02-21] MEDS: FERROUS SULFATE 325 MG TABLET. PO SCH (09:41)
[2020-02-21] MEDS: PANTOPRAZOLE IV PUSH 40 MG VIAL. IVP SCH ×2 (09:41→17:48)
--- NOTE | 2020-02-21 10:20 | PDOC ---
Subjective: Subjective: Abdomen hurts, denies bleeding. Objective: Objective: D/w nurse - no bleeding. Vital Signs: Vital Signs Date Time Temp Pulse Resp B/P (MAP) Pulse Ox O2 Delivery O2 Flow Rate FiO2 02/21/20 07:35 98.0 138 20 135/72 (93) 94 Room Air 98.0 Labs: Laboratory Tests Test 02/20/20 13:55 02/20/20 21:15 02/21/20 03:30 White Blood Count 6.6 x10^3/uL 9.3 x10^3/uL 6.0 x10^3/uL Red Blood Count 4.46 x10^6/uL 4.60 x10^6/uL 4.10 x10^6/uL Hemoglobin 14.3 g/dL 14.6 g/dL 13.1 g/dL Hematocrit 42.7 % 43.8 % 39.5 % Mean Corpuscular Volume 96 fL 95 fL 96 fL Mean Corpuscular Hemoglobin 32 pg 32 pg 32 pg Mean Corpuscular Hemoglobin Concent 34 g/dL 33 g/dL 33 g/dL Red Cell Distribution Width 19.4 % 19.7 % 19.6 % Platelet Count 84 x10^3/uL 99 x10^3/uL 76 x10^3/uL Neutrophils (%) (Auto) 65 % Lymphocytes (%) (Auto) 21 % Monocytes (%) (Auto) 12 % Eosinophils (%) (Auto) 1 % Basophils (%) (Auto) 1 % Neutrophils # (Auto) 3.9 x10^3/uL Lymphocytes # (Auto) 1.3 x10^3/uL Monocytes # (Auto) 0.7 x10^3/uL Eosinophils # (Auto) 0.1 x10^3/uL Basophils # (Auto) 0.1 x10^3/uL Sodium Level 142 mmol/L Potassium Level 3.6 mmol/L Chloride Level 106 mmol/L Carbon Dioxide Level 24 mmol/L Anion Gap 12 Blood Urea Nitrogen 10 mg/dL Creatinine 1.0 mg/dL Estimated GFR (Cockcroft-Gault) 87.7 BUN/Creatinine Ratio 10 Glucose Level 113 mg/dL Calcium Level 8.3 mg/dL Magnesium Level 2.1 mg/dL Total Bilirubin 3.1 mg/dL Aspartate Amino Transf (AST/SGOT) 92 U/L Alanine Aminotransferase (ALT/SGPT) 41 U/L Alkaline Phosphatase 215 U/L Total Protein 6.5 g/dL Albumin 2.9 g/dL Albumin/Globulin Ratio 0.8 PE: GEN: NAD LUNGS: clear anteriorly HEART: tachycardic ABD: soft, tender right periumbilical/RUQ/epigastrium NEURO/PSYCH: drowsy, mumbling A/P: Hematemesis - no recurrence w/ Hgb and BUN WNL, ?M-W tear - last EGD 01/11/20 Cirrhosis Chronic pain -- Continue same for now w/ ice chips, IV Reglan, IV PPI. Note also getting PO meds including lactulose TID and Xifaxan BID. Will review all w/ Dr. Florez. Hemodynamically unstable?: No Is patient in severe pain?: No Is NPO status required?: Yes JANET STEWART Feb 21, 2020 10:19
--- NOTE | 2020-02-21 10:22 | PDOC ---
PROGRESS NOTES History of Present Illness History of Present Illness VTE Prophylaxis Ordered VTE Prophylaxis Devices: No VTE Pharmacological Prophylaxi: Contraindicated Assessment/Plan Assessment/Plan A/P: Hematemeis - Hb stable. GI consulted. This sounds like a suresh-christianson tear based on history EtOH abuse - with acute intoxication on admission. CIWA scale, banana bag. Will add gabapentin based on new clinical trial data to help him avoid relapse Acute alcohol intoxication - will cont CIWA, banana bag Major depression - needs outpatient treatment Right clavicle fracture - sling and oral diluadid Thrombocytopenia - likely related to liver disease, will minimize his exposure to 1st generation anti-psychotics based on this. 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 Will cont his home medications which have helped reduce his hospitalizations Smoker - counseled on cessation Alpha-1 antitrypsin deficiency - MZ mutation - increases his risk of liver disease given his ETOH abuse DJD - pain control Transaminitis - fits ETOH pattern. trend Hepatic cirrhosis and findings of portal hypertension , C/W END ORGAN INJURY. INR 1.5 and Bilirubin 2.6 Esophageal varices - numerous, small, though Gallstone lodged at the gallbladder neck, no gallbladder wall thickening - seen by general surgery previously, no indication for surgery FEN - ice chips PPX - Protonix, SCDs FULL CODE Dispo - med tele for acute UGIB ice chips, IV Reglan, IV PPI. 02/20 abd pain slow to improve Vitals Vitals Vital Signs Date Time Temp Pulse Resp B/P (MAP) Pulse Ox O2 Delivery O2 Flow Rate FiO2 02/21/20 07:35 98.0 138 20 135/72 (93) 94 Room Air 98.0 Physical Exam General: Alert, Cooperative, mild distress Lungs: Clear Abdomen: Normal bowel sounds, Soft, No tenderness, No hepatosplenomegaly, No masses Extremities: No clubbing, No cyanosis, No edema, Normal pulses, Other (Tenderness on right clavicle) Skin: No rashes, No breakdown, No significant lesion Labs LABS Laboratory Tests Test 02/20/20 13:55 02/20/20 21:15 02/21/20 03:30 White Blood Count 6.6 x10^3/uL (4.0-11.0) 9.3 x10^3/uL (4.0-11.0) 6.0 x10^3/uL (4.0-11.0) Red Blood Count 4.46 x10^6/uL (4.30-5.70) 4.60 x10^6/uL (4.30-5.70) 4.10 x10^6/uL (4.30-5.70) Hemoglobin 14.3 g/dL (13.0-17.5) 14.6 g/dL (13.0-17.5) 13.1 g/dL (13.0-17.5) Hematocrit 42.7 % (39.0-53.0) 43.8 % (39.0-53.0) 39.5 % (39.0-53.0) Mean Corpuscular Volume 96 fL (79-100) 95 fL (79-100) 96 fL (79-100) Mean Corpuscular Hemoglobin 32 pg (25-35) 32 pg (25-35) 32 pg (25-35) Mean Corpuscular Hemoglobin Concent 34 g/dL (31-37) 33 g/dL (31-37) 33 g/dL (31-37) Red Cell Distribution Width 19.4 % (11.5-14.5) 19.7 % (11.5-14.5) 19.6 % (11.5-14.5) Platelet Count 84 x10^3/uL (140-400) 99 x10^3/uL (140-400) 76 x10^3/uL (140-400) Neutrophils (%) (Auto) 65 % (31-73) Lymphocytes (%) (Auto) 21 % (24-48) Monocytes (%) (Auto) 12 % (0-9) Eosinophils (%) (Auto) 1 % (0-3) Basophils (%) (Auto) 1 % (0-3) Neutrophils # (Auto) 3.9 x10^3/uL (1.8-7.7) Lymphocytes # (Auto) 1.3 x10^3/uL (1.0-4.8) Monocytes # (Auto) 0.7 x10^3/uL (0.0-1.1) Eosinophils # (Auto) 0.1 x10^3/uL (0.0-0.7) Basophils # (Auto) 0.1 x10^3/uL (0.0-0.2) Sodium Level 142 mmol/L (136-145) Potassium Level 3.6 mmol/L (3.5-5.1) Chloride Level 106 mmol/L (98-107) Carbon Dioxide Level 24 mmol/L (21-32) Anion Gap 12 (6-14) Blood Urea Nitrogen 10 mg/dL (8-26) Creatinine 1.0 mg/dL (0.7-1.3) Estimated GFR (Cockcroft-Gault) 87.7 BUN/Creatinine Ratio 10 (6-20) Glucose Level 113 mg/dL (70-99) Calcium Level 8.3 mg/dL (8.5-10.1) Magnesium Level 2.1 mg/dL (1.8-2.4) Total Bilirubin 3.1 mg/dL (0.2-1.0) Aspartate Amino Transf (AST/SGOT) 92 U/L (15-37) Alanine Aminotransferase (ALT/SGPT) 41 U/L (16-63) Alkaline Phosphatase 215 U/L (46-116) Total Protein 6.5 g/dL (6.4-8.2) Albumin 2.9 g/dL (3.4-5.0) Albumin/Globulin Ratio 0.8 (1.0-1.7) Comment Review of Relevant I have reviewed the following items mc (where applicable) has been applied. Labs Laboratory Tests Test 02/20/20 07:10 02/20/20 13:55 02/20/20 21:15 02/21/20 03:30 White Blood Count 6.6 x10^3/uL (4.0-11.0) 6.6 x10^3/uL (4.0-11.0) 9.3 x10^3/uL (4.0-11.0) 6.0 x10^3/uL (4.0-11.0) Red Blood Count 4.98 x10^6/uL (4.30-5.70) 4.46 x10^6/uL (4.30-5.70) 4.60 x10^6/uL (4.30-5.70) 4.10 x10^6/uL (4.30-5.70) Hemoglobin 15.9 g/dL (13.0-17.5) 14.3 g/dL (13.0-17.5) 14.6 g/dL (13.0-17.5) 13.1 g/dL (13.0-17.5) Hematocrit 47.9 % (39.0-53.0) 42.7 % (39.0-53.0) 43.8 % (39.0-53.0) 39.5 % (39.0-53.0) Mean Corpuscular Volume 96 fL (79-100) 96 fL (79-100) 95 fL (79-100) 96 fL (79-100) Mean Corpuscular Hemoglobin 32 pg (25-35) 32 pg (25-35) 32 pg (25-35) 32 pg (25-35) Mean Corpuscular Hemoglobin Concent 33 g/dL (31-37) 34 g/dL (31-37) 33 g/dL (31-37) 33 g/dL (31-37) Red Cell Distribution Width 19.8 % (11.5-14.5) 19.4 % (11.5-14.5) 19.7 % (11.5-14.5) 19.6 % (11.5-14.5) Platelet Count 93 x10^3/uL (140-400) 84 x10^3/uL (140-400) 99 x10^3/uL (140-400) 76 x10^3/uL (140-400) Neutrophils (%) (Auto) 72 % (31-73) 65 % (31-73) Lymphocytes (%) (Auto) 20 % (24-48) 21 % (24-48) Monocytes (%) (Auto) 7 % (0-9) 12 % (0-9) Eosinophils (%) (Auto) 1 % (0-3) 1 % (0-3) Basophils (%) (Auto) 1 % (0-3) 1 % (0-3) Neutrophils # (Auto) 4.8 x10^3/uL (1.8-7.7) 3.9 x10^3/uL (1.8-7.7) Lymphocytes # (Auto) 1.3 x10^3/uL (1.0-4.8) 1.3 x10^3/uL (1.0-4.8) Monocytes # (Auto) 0.4 x10^3/uL (0.0-1.1) 0.7 x10^3/uL (0.0-1.1) Eosinophils # (Auto) 0.1 x10^3/uL (0.0-0.7) 0.1 x10^3/uL (0.0-0.7) Basophils # (Auto) 0.0 x10^3/uL (0.0-0.2) 0.1 x10^3/uL (0.0-0.2) Prothrombin Time 17.6 SEC (11.7-14.0) Prothromb Time International Ratio 1.5 (0.8-1.1) Activated Partial Thromboplast Time 41 SEC (24-38) Sodium Level 144 mmol/L (136-145) 142 mmol/L (136-145) Potassium Level 3.7 mmol/L (3.5-5.1) 3.6 mmol/L (3.5-5.1) Chloride Level 106 mmol/L (98-107) 106 mmol/L (98-107) Carbon Dioxide Level 24 mmol/L (21-32) 24 mmol/L (21-32) Anion Gap 14 (6-14) 12 (6-14) Blood Urea Nitrogen 5 mg/dL (8-26) 10 mg/dL (8-26) Creatinine 0.7 mg/dL (0.7-1.3) 1.0 mg/dL (0.7-1.3) Estimated GFR (Cockcroft-Gault) 132.4 87.7 BUN/Creatinine Ratio 7 (6-20) 10 (6-20) Glucose Level 115 mg/dL (70-99) 113 mg/dL (70-99) Calcium Level 8.6 mg/dL (8.5-10.1) 8.3 mg/dL (8.5-10.1) Magnesium Level 1.6 mg/dL (1.8-2.4) 2.1 mg/dL (1.8-2.4) Total Bilirubin 2.6 mg/dL (0.2-1.0) 3.1 mg/dL (0.2-1.0) Aspartate Amino Transf (AST/SGOT) 118 U/L (15-37) 92 U/L (15-37) Alanine Aminotransferase (ALT/SGPT) 55 U/L (16-63) 41 U/L (16-63) Alkaline Phosphatase 288 U/L (46-116) 215 U/L (46-116) Total Protein 8.2 g/dL (6.4-8.2) 6.5 g/dL (6.4-8.2) Albumin 3.4 g/dL (3.4-5.0) 2.9 g/dL (3.4-5.0) Albumin/Globulin Ratio 0.7 (1.0-1.7) 0.8 (1.0-1.7) Lipase 45 U/L (73-393) Ethyl Alcohol Level 206 mg/dL (0-10) Laboratory Tests Test 02/20/20 13:55 02/20/20 21:15 02/21/20 03:30 White Blood Count 6.6 x10^3/uL (4.0-11.0) 9.3 x10^3/uL (4.0-11.0) 6.0 x10^3/uL (4.0-11.0) Red Blood Count 4.46 x10^6/uL (4.30-5.70) 4.60 x10^6/uL (4.30-5.70) 4.10 x10^6/uL (4.30-5.70) Hemoglobin 14.3 g/dL (13.0-17.5) 14.6 g/dL (13.0-17.5) 13.1 g/dL (13.0-17.5) Hematocrit 42.7 % (39.0-53.0) 43.8 % (39.0-53.0) 39.5 % (39.0-53.0) Mean Corpuscular Volume 96 fL (79-100) 95 fL (79-100) 96 fL (79-100) Mean Corpuscular Hemoglobin 32 pg (25-35) 32 pg (25-35) 32 pg (25-35) Mean Corpuscular Hemoglobin Concent 34 g/dL (31-37) 33 g/dL (31-37) 33 g/dL (31-37) Red Cell Distribution Width 19.4 % (11.5-14.5) 19.7 % (11.5-14.5) 19.6 % (11.5-14.5) Platelet Count 84 x10^3/uL (140-400) 99 x10^3/uL (140-400) 76 x10^3/uL (140-400) Neutrophils (%) (Auto) 65 % (31-73) Lymphocytes (%) (Auto) 21 % (24-48) Monocytes (%) (Auto) 12 % (0-9) Eosinophils (%) (Auto) 1 % (0-3) Basophils (%) (Auto) 1 % (0-3) Neutrophils # (Auto) 3.9 x10^3/uL (1.8-7.7) Lymphocytes # (Auto) 1.3 x10^3/uL (1.0-4.8) Monocytes # (Auto) 0.7 x10^3/uL (0.0-1.1) Eosinophils # (Auto) 0.1 x10^3/uL (0.0-0.7) Basophils # (Auto) 0.1 x10^3/uL (0.0-0.2) Sodium Level 142 mmol/L (136-145) Potassium Level 3.6 mmol/L (3.5-5.1) Chloride Level 106 mmol/L (98-107) Carbon Dioxide Level 24 mmol/L (21-32) Anion Gap 12 (6-14) Blood Urea Nitrogen 10 mg/dL (8-26) Creatinine 1.0 mg/dL (0.7-1.3) Estimated GFR (Cockcroft-Gault) 87.7 BUN/Creatinine Ratio 10 (6-20) Glucose Level 113 mg/dL (70-99) Calcium Level 8.3 mg/dL (8.5-10.1) Magnesium Level 2.1 mg/dL (1.8-2.4) Total Bilirubin 3.1 mg/dL (0.2-1.0) Aspartate Amino Transf (AST/SGOT) 92 U/L (15-37) Alanine Aminotransferase (ALT/SGPT) 41 U/L (16-63) Alkaline Phosphatase 215 U/L (46-116) Total Protein 6.5 g/dL (6.4-8.2) Albumin 2.9 g/dL (3.4-5.0) Albumin/Globulin Ratio 0.8 (1.0-1.7) Medications Current Medications Pantoprazole Sodium (PROTONIX VIAL for IV PUSH) 80 mg 1X ONCE IVP Last adminis tered on 02/20/20at 07:27; Start 02/20/20 at 07:15; Stop 02/20/20 at 07:16; Status DC Octreotide Acetate (SandoSTATIN) 50 mcg 1X ONCE IV Last administered on 02/20/20at 07:29; Start 02/20/20 at 07:15; Stop 02/20/20 at 07:16; Status DC Metoclopramide HCl (Reglan Vial) 10 mg 1X ONCE IVP Last administered on 02/20/20at 07:27; Start 02/20/20 at 07:15; Stop 02/20/20 at 07:16; Status DC Haloperidol Lactate (Haldol Inj) 5 mg STK-MED ONCE .ROUTE ; Start 02/20/20 at 08:08; Stop 02/20/20 at 08:09; Status DC Haloperidol Lactate (Haldol Inj) 2.5 mg 1X ONCE IVP Last administered on 02/20/20at 08:14; Start 02/20/20 at 08:15; Stop 02/20/20 at 08:16; Status DC Ondansetron HCl (Zofran) 4 mg PRN Q8HRS PRN IV NAUSEA/VOMITING; Start 02/20/20 at 08:30; Stop 02/20/20 at 09:15; Status DC Lorazepam (Ativan Inj) 1 mg 1X ONCE IVP Last administered on 02/20/20at 09:00; Start 02/20/20 at 09:00; Stop 02/20/20 at 09:03; Status DC Ondansetron HCl (Zofran) 4 mg PRN Q4HRS PRN IV NAUSEA/VOMITING Last administered on 02/21/20at 02:31; Start 02/20/20 at 09:15 Magnesium Sulfate 100 ml @ 25 mls/hr 1X ONCE IV Last administered on 02/20/20at 10:40; Start 02/20/20 at 10:00; Stop 02/20/20 at 13:59; Status DC Pantoprazole Sodium (PROTONIX VIAL for IV PUSH) 40 mg BIDAC IVP Last administer ed on 02/21/20at 09:41; Start 02/20/20 at 09:30 Lorazepam (Ativan Inj) 1 mg PRN Q4HRS PRN IV For CIWA 8-14 Last administered on 02/21/20at 02:27; Start 02/20/20 at 09:15; Stop 02/21/20 at 04:47; Status DC Haloperidol Lactate (Haldol Inj) 5 mg PRN Q4HRS PRN IVP Hallucinatns,Confusn,Delirium; Start 02/20/20 at 09:15 Buspirone HCl (Buspar) 5 mg PRN TID PRN PO Anxiety; Start 02/20/20 at 09:15 Clonidine HCl (Catapres) 0.1 mg PRN Q1HR PRN PO SBP > 180 or DBP > 100, MRX3; Start 02/20/20 at 09:15 Ferrous Sulfate (Feosol) 325 mg DAILYWBKFT PO Last administered on 02/21/20at 09:41; Start 02/20/20 at 12:00 Folic Acid (Folic Acid) 1 mg DAILY PO Last administered on 02/21/20at 09:40; Start 02/20/20 at 10:00 Hydromorphone HCl (Dilaudid) 2 mg PRN Q8HRS PRN PO MODERTE TO SEVERE PAIN; Start 02/20/20 at 09:15 Hydroxyzine HCl (Atarax) 75 mg TID PO Last administered on 02/21/20at 09:40; Start 02/20/20 at 10:00 Lactulose (Lactulose) 20 gm TID PO Last administered on 02/21/20at 09:41; Start 02/20/20 at 10:00 Olanzapine (ZyPREXA) 5 mg QHS PO Last administered on 02/20/20at 23:43; Start 02/20/20 at 21:00 Pantoprazole Sodium (Protonix) 40 mg DAILYAC PO ; Start 02/21/20 at 07:30; Status UNV Prazosin HCl (Minipress) 1 mg QHS PO Last administered on 02/20/20at 23:47; Start 02/20/20 at 21:00 Rifaximin (Xifaxan) 550 mg Q12HR PO Last administered on 02/21/20 09:40; Start 02/20/20 at 10:00 Trazodone HCl (Desyrel) 100 mg QHS PO Last administered on 02/20/20at 23:43; Start 02/20/20 at 21:00 Ziprasidone (Geodon) 20 mg BID PO Last administered on 02/21/20 09:40; Start 02/20/20 at 10:00 Benztropine Mesylate (Cogentin) 0.5 mg BID PO Last administered on 02/21/20 09:40; Start 02/20/20 at 09:45 Multivitamins (Thera M Plus) 1 tab DAILY PO Last administered on 02/21/20 09:41; Start 02/20/20 at 10:00 Thiamine Mononitrate (Vitamin B-1) 100 mg DAILY PO Last administered on 02/21/20 09:40; Start 02/20/20 at 10:00 Gabapentin (Neurontin) 300 mg TID PO Last administered on 02/21/20 09:40; Start 02/20/20 at 10:00 Influenza Virus Vaccine Quadrival (Afluria Quad 2019-20 (3yr Up) Syringe) 0.5 ml ONCE ONCE VAX IM Last administered on 02/20/20 12:13; Start 02/20/20 at 11:30; Stop 02/20/20 at 11:34; Status DC Metoclopramide HCl (Reglan Vial) 10 mg Q6HRS IVP Last administered on 02/21/20 06:15; Start 02/20/20 at 14:00 Hydromorphone HCl (Dilaudid) 0.2 mg 1X ONCE IVP Last administered on 02/20/20at 14:52; Start 02/20/20 at 14:45; Stop 02/20/20 at 14:47; Status DC Hydromorphone HCl (Dilaudid) 0.4 mg PRN Q4HRS PRN IVP PAIN Last administered on 02/21/20 02:30; Start 02/20/20 at 21:30 Multivitamins 10 ml/Thiamine HCl 100 mg/Folic Acid 1 mg/Sodium Chloride 1,011.2 ml @ 1,000.088 mls/hr 1X ONCE IV Last administered on 02/20/20at 22:03; Start 02/20/20 at 21:45; Stop 02/20/20 at 22:45; Status DC Lorazepam (Ativan Inj) 1 mg PRN Q1HR PRN IV For CIWA 8-14 Last administered on 02/21/20at 06:16; Start 02/21/20 at 04:45 Active Scripts Active Buspirone Hcl 5 Mg Tablet 5 Mg PO PRN TID PRN 30 Days Dilaudid (Hydromorphone Hcl) 2 Mg Tablet 2 Mg PO PRN Q8HRS PRN 6 Days Benztropine Mesylate 0.5 Mg Tablet 1 Tab PO BID 30 Days Geodon (Ziprasidone Hcl) 20 Mg Capsule 20 Mg PO BID 30 Days Trazodone Hcl 100 Mg Tablet 100 Mg PO QHS 30 Days Catapres (Clonidine Hcl) 0.1 Mg Tablet 0.1 Mg PO PRN Q1HR PRN 7 Days Can take for withdrawal symptoms Xifaxan (Rifaximin) 550 Mg Tablet 550 Mg PO Q12HR 30 Days Lactulose 20 Gm/30 Ml Solution 20 Gm PO TID 30 Days Prazosin Hcl 1 Mg Capsule 1 Cap PO QHS 30 Days Pantoprazole Sodium (Pantoprazole Sodium) 40 Mg Tablet.dr 40 Mg PO DAILYAC Multivitamins (Multivitamin) 1 Each Tablet 1 Tab PO DAILY Folic Acid 1 Mg Tablet 1 Tab PO DAILY Vitamin B-1 (Thiamine Hcl) 100 Mg Tablet 100 Mg PO DAILY 30 Days Feosol (Ferrous Sulfate) 325 Mg Tablet 325 Mg PO DAILYWBKFT 30 Days Reported Zyprexa (Olanzapine) 5 Mg Tablet 1 Tab PO QHS Hydroxyzine Hcl 25 Mg Tablet 3 Tab PO TID Vitals/I & O Vital Sign - Last 24 Hours 02/20/20 02/20/20 02/20/20 02/20/20 11:03 15:25 19:00 20:00 Temp 98.1 98.6 98.4 98.1 98.6 98.4 Pulse 140 142 152 Resp 16 14 20 B/P (MAP) 132/68 (89) 152/83 (106) 133/74 (93) Pulse Ox 94 95 95 O2 Delivery Room Air Room Air Room Air Room Air 02/20/20 02/20/20 02/20/20 02/20/20 22:28 22:58 23:04 23:47 Temp 98.0 98.0 Pulse 143 143 Resp 20 B/P (MAP) 145/94 (111) 145/94 Pulse Ox 95 99 99 O2 Delivery Room Air Room Air Room Air 02/21/20 02/21/20 02/21/20 02/21/20 02:30 03:00 03:04 07:35 Temp 97.8 98.0 97.8 98.0 Pulse 145 138 Resp 20 20 B/P (MAP) 111/67 (82) 135/72 (93) Pulse Ox 95 95 95 94 O2 Delivery Room Air Room Air Room Air Room Air Intake and Output 02/20/20 02/20/20 02/21/20 15:00 23:00 07:00 Intake Total 100 ml Balance 100 ml Hemodynamically unstable?: No Is patient in severe pain?: No Is NPO status required?: Yes KORY CRAIG MD Feb 21, 2020 10:22
--- NOTE | 2020-02-21 10:56 | NUR ---
Pt requested pain medication, went to pt's room to admin, pt was sleeping. Will continue to monitor.
[2020-02-21 11:20] VITALS: BP 120/65
[2020-02-21] MEDS ORDERED: diphenhydrAMINE 50 MG/ML VIAL IVP PRN (13:45)
[2020-02-21] MEDS ORDERED: LORazepam 1 MG TABLET PO PRN (13:45)
[2020-02-21] MEDS ORDERED: HALOPERIDOL LACTATE 5 MG/ML VIAL. IVP PRN (13:45)
--- NOTE | 2020-02-21 13:52 | NUR ---
SS following for discharge planning. SS reviewed pt chart and discussed with pt RN. Pt is from home and is currently on room air. Pt has ETOH. PAT team consulted for ETOH. SS will continue to follow for discharge planning.
[2020-02-21 15:04] VITALS: BP 137/87
--- NOTE | 2020-02-21 18:37 | NUR ---
1750 dilaudid: When drawing 1750 PRN dose of dilaudid pt stated, "you can just draw up that whole thing for me". RN educated patient on correct dosing and need to keep patient safe. Pt verbalized understanding. Administered ordered dose of medication, will continue to monitor pt.
[2020-02-21 19:52] VITALS: BP 149/103
[2020-02-21] MEDS: OLANZapine 5 MG TABLET PO SCH (22:14)
[2020-02-21] MEDS: PRAZOSIN 1 MG CAPSULE. PO SCH (22:14)
[2020-02-21] MEDS: traZODone 100 MG TABLET. PO SCH (22:15)
[2020-02-21 23:15] VITALS: BP 154/104
[2020-02-22] MEDS: LORazepam 1 MG TABLET PO PRN (02:43)
[2020-02-22] MEDS: HYDROmorphone 2 MG/ML VIAL IVP PRN ×5 (02:44→21:00)
[2020-02-22 03:30] VITALS: BP 155/95
[2020-02-22 05:10] LABS: BASO % 1 % (0-3); EOS # 0.1 x10^3/uL (0.0-0.7); EOS % 3 % (0-3); HEMATOCRIT 40.4 % (39.0-53.0); HEMOGLOBIN 13.4 g/dL (13.0-17.5); LYMPH # 1.3 x10^3/uL (1.0-4.8); LYMPH % 26 % (24-48); MEAN CORPUSCULAR HEMOGLOBIN 32 pg (25-35); MEAN CORPUSCULAR HGB CONC 33 g/dL (31-37); MEAN CORPUSCULAR VOLUME 97 fL (79-100); MONO # 0.5 x10^3/uL (0.0-1.1); MONO % 10 % (0-9); NEUT % 61 % (31-73); PLATELET COUNT 59 x10^3/uL (140-400); RED BLOOD COUNT 4.18 x10^6/uL (4.30-5.70); RED CELL DISTRIBUTION WIDTH 19.1 % (11.5-14.5); WHITE BLOOD COUNT 4.9 x10^3/uL (4.0-11.0)
[2020-02-22 05:43] LABS: ALBUMIN 3.2 g/dL (3.4-5.0); ALBUMIN/GLOBULIN RATIO 0.8 (1.0-1.7); CALCIUM 9.1 mg/dL (8.5-10.1); CREATININE 0.9 mg/dL (0.7-1.3); GFR 99.1; POTASSIUM 3.6 mmol/L (3.5-5.1); TOTAL BILIRUBIN 3.7 mg/dL (0.2-1.0); TOTAL PROTEIN 7.1 g/dL (6.4-8.2)
[2020-02-22] MEDS: METOCLOPRAMIDE HCL 10 MG/2 ML VIAL. IVP SCH ×4 (05:56→17:41)
[2020-02-22 07:51] VITALS: BP 148/76
--- NOTE | 2020-02-22 08:07 | PDOC ---
PROGRESS NOTES History of Present Illness History of Present Illness VTE Prophylaxis Ordered VTE Prophylaxis Devices: No VTE Pharmacological Prophylaxi: Contraindicated Assessment/Plan Assessment/Plan A/P: Hematemeis - Hb stable. GI consulted. This sounds like a suresh-christianson tear based on history EtOH abuse - with acute intoxication on admission. CIWA scale, banana bag. Will add gabapentin based on new clinical trial data to help him avoid relapse Acute alcohol intoxication - will cont CIWA, banana bag Major depression - needs outpatient treatment Right clavicle fracture - sling and oral diluadid Thrombocytopenia - likely related to liver disease, will minimize his exposure to 1st generation anti-psychotics based on this. 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 Will cont his home medications which have helped reduce his hospitalizations Smoker - counseled on cessation Alpha-1 antitrypsin deficiency - MZ mutation - increases his risk of liver disease given his ETOH abuse DJD - pain control Transaminitis - fits ETOH pattern. trend Hepatic cirrhosis and findings of portal hypertension , C/W END ORGAN INJURY. INR 1.5 and Bilirubin 2.6 Esophageal varices - numerous, :Varices with stigmata of recent bleeding; all 3 banded. 02/21 Gallstone lodged at the gallbladder neck, no gallbladder wall thickening - seen by general surgery previously, no indication for surgery FEN - ice chips PPX - Protonix, SCDs FULL CODE Dispo - med tele for acute UGIB ice chips, IV Reglan, IV PPI. 02/20 abd pain slow to improve Indication: recurrent hematemesis 02/21 Meds: per anesthesia Findings: E--grade III varices mid/distal esophagus (larger after rehydration?). 3 with white thrombus at tips. All 3 banded. Otherwise normal. G--Retained liquid, grossly broth. Hard to see his portal hypertensive gastropathy seconday to this. No other lesions. D--Normal to second portion. Meghann. well. IMP: Varices with stigmata of recent bleeding; all 3 banded. REC: Clears today. Begin advance diet in AM if no problems. If major rebleeding-->TIPS. Continue PPI. MEENA HASTINGS MD Feb 22, 2020 11:05 Vitals Vitals Vital Signs Date Time Temp Pulse Resp B/P (MAP) Pulse Ox O2 Delivery O2 Flow Rate FiO2 02/22/20 07:51 97.8 131 18 148/76 (100) 96 Room Air 97.8 Physical Exam General: Alert, Oriented X3, Cooperative, mild distress Heart: Regular rate, No murmurs Lungs: Clear Abdomen: Normal bowel sounds, Soft, No tenderness, No hepatosplenomegaly, No masses Extremities: No clubbing, No cyanosis, No edema, Normal pulses, Other (Tenderness on right clavicle) Skin: No rashes, No breakdown, No significant lesion Labs LABS Laboratory Tests Test 02/22/20 04:28 White Blood Count 4.9 x10^3/uL (4.0-11.0) Red Blood Count 4.18 x10^6/uL (4.30-5.70) Hemoglobin 13.4 g/dL (13.0-17.5) Hematocrit 40.4 % (39.0-53.0) Mean Corpuscular Volume 97 fL (79-100) Mean Corpuscular Hemoglobin 32 pg (25-35) Mean Corpuscular Hemoglobin Concent 33 g/dL (31-37) Red Cell Distribution Width 19.1 % (11.5-14.5) Platelet Count 59 x10^3/uL (140-400) Neutrophils (%) (Auto) 61 % (31-73) Lymphocytes (%) (Auto) 26 % (24-48) Monocytes (%) (Auto) 10 % (0-9) Eosinophils (%) (Auto) 3 % (0-3) Basophils (%) (Auto) 1 % (0-3) Neutrophils # (Auto) 3.0 x10^3/uL (1.8-7.7) Lymphocytes # (Auto) 1.3 x10^3/uL (1.0-4.8) Monocytes # (Auto) 0.5 x10^3/uL (0.0-1.1) Eosinophils # (Auto) 0.1 x10^3/uL (0.0-0.7) Basophils # (Auto) 0.0 x10^3/uL (0.0-0.2) Sodium Level 138 mmol/L (136-145) Potassium Level 3.6 mmol/L (3.5-5.1) Chloride Level 102 mmol/L (98-107) Carbon Dioxide Level 25 mmol/L (21-32) Anion Gap 11 (6-14) Blood Urea Nitrogen 12 mg/dL (8-26) Creatinine 0.9 mg/dL (0.7-1.3) Estimated GFR (Cockcroft-Gault) 99.1 BUN/Creatinine Ratio 13 (6-20) Glucose Level 97 mg/dL (70-99) Calcium Level 9.1 mg/dL (8.5-10.1) Total Bilirubin 3.7 mg/dL (0.2-1.0) Aspartate Amino Transf (AST/SGOT) 93 U/L (15-37) Alanine Aminotransferase (ALT/SGPT) 43 U/L (16-63) Alkaline Phosphatase 232 U/L (46-116) Total Protein 7.1 g/dL (6.4-8.2) Albumin 3.2 g/dL (3.4-5.0) Albumin/Globulin Ratio 0.8 (1.0-1.7) Comment Review of Relevant I have reviewed the following items mc (where applicable) has been applied. Labs Laboratory Tests Test 02/20/20 13:55 02/20/20 21:15 02/21/20 03:30 02/22/20 04:28 White Blood Count 6.6 x10^3/uL (4.0-11.0) 9.3 x10^3/uL (4.0-11.0) 6.0 x10^3/uL (4.0-11.0) 4.9 x10^3/uL (4.0-11.0) Red Blood Count 4.46 x10^6/uL (4.30-5.70) 4.60 x10^6/uL (4.30-5.70) 4.10 x10^6/uL (4.30-5.70) 4.18 x10^6/uL (4.30-5.70) Hemoglobin 14.3 g/dL (13.0-17.5) 14.6 g/dL (13.0-17.5) 13.1 g/dL (13.0-17.5) 13.4 g/dL (13.0-17.5) Hematocrit 42.7 % (39.0-53.0) 43.8 % (39.0-53.0) 39.5 % (39.0-53.0) 40.4 % (39.0-53.0) Mean Corpuscular Volume 96 fL (79-100) 95 fL (79-100) 96 fL (79-100) 97 fL (79-100) Mean Corpuscular Hemoglobin 32 pg (25-35) 32 pg (25-35) 32 pg (25-35) 32 pg (25-35) Mean Corpuscular Hemoglobin Concent 34 g/dL (31-37) 33 g/dL (31-37) 33 g/dL (31-37) 33 g/dL (31-37) Red Cell Distribution Width 19.4 % (11.5-14.5) 19.7 % (11.5-14.5) 19.6 % (11.5-14.5) 19.1 % (11.5-14.5) Platelet Count 84 x10^3/uL (140-400) 99 x10^3/uL (140-400) 76 x10^3/uL (140-400) 59 x10^3/uL (140-400) Neutrophils (%) (Auto) 65 % (31-73) 61 % (31-73) Lymphocytes (%) (Auto) 21 % (24-48) 26 % (24-48) Monocytes (%) (Auto) 12 % (0-9) 10 % (0-9) Eosinophils (%) (Auto) 1 % (0-3) 3 % (0-3) Basophils (%) (Auto) 1 % (0-3) 1 % (0-3) Neutrophils # (Auto) 3.9 x10^3/uL (1.8-7.7) 3.0 x10^3/uL (1.8-7.7) Lymphocytes # (Auto) 1.3 x10^3/uL (1.0-4.8) 1.3 x10^3/uL (1.0-4.8) Monocytes # (Auto) 0.7 x10^3/uL (0.0-1.1) 0.5 x10^3/uL (0.0-1.1) Eosinophils # (Auto) 0.1 x10^3/uL (0.0-0.7) 0.1 x10^3/uL (0.0-0.7) Basophils # (Auto) 0.1 x10^3/uL (0.0-0.2) 0.0 x10^3/uL (0.0-0.2) Sodium Level 142 mmol/L (136-145) 138 mmol/L (136-145) Potassium Level 3.6 mmol/L (3.5-5.1) 3.6 mmol/L (3.5-5.1) Chloride Level 106 mmol/L (98-107) 102 mmol/L (98-107) Carbon Dioxide Level 24 mmol/L (21-32) 25 mmol/L (21-32) Anion Gap 12 (6-14) 11 (6-14) Blood Urea Nitrogen 10 mg/dL (8-26) 12 mg/dL (8-26) Creatinine 1.0 mg/dL (0.7-1.3) 0.9 mg/dL (0.7-1.3) Estimated GFR (Cockcroft-Gault) 87.7 99.1 BUN/Creatinine Ratio 10 (6-20) 13 (6-20) Glucose Level 113 mg/dL (70-99) 97 mg/dL (70-99) Calcium Level 8.3 mg/dL (8.5-10.1) 9.1 mg/dL (8.5-10.1) Magnesium Level 2.1 mg/dL (1.8-2.4) Total Bilirubin 3.1 mg/dL (0.2-1.0) 3.7 mg/dL (0.2-1.0) Aspartate Amino Transf (AST/SGOT) 92 U/L (15-37) 93 U/L (15-37) Alanine Aminotransferase (ALT/SGPT) 41 U/L (16-63) 43 U/L (16-63) Alkaline Phosphatase 215 U/L (46-116) 232 U/L (46-116) Total Protein 6.5 g/dL (6.4-8.2) 7.1 g/dL (6.4-8.2) Albumin 2.9 g/dL (3.4-5.0) 3.2 g/dL (3.4-5.0) Albumin/Globulin Ratio 0.8 (1.0-1.7) 0.8 (1.0-1.7) Laboratory Tests Test 02/22/20 04:28 White Blood Count 4.9 x10^3/uL (4.0-11.0) Red Blood Count 4.18 x10^6/uL (4.30-5.70) Hemoglobin 13.4 g/dL (13.0-17.5) Hematocrit 40.4 % (39.0-53.0) Mean Corpuscular Volume 97 fL (79-100) Mean Corpuscular Hemoglobin 32 pg (25-35) Mean Corpuscular Hemoglobin Concent 33 g/dL (31-37) Red Cell Distribution Width 19.1 % (11.5-14.5) Platelet Count 59 x10^3/uL (140-400) Neutrophils (%) (Auto) 61 % (31-73) Lymphocytes (%) (Auto) 26 % (24-48) Monocytes (%) (Auto) 10 % (0-9) Eosinophils (%) (Auto) 3 % (0-3) Basophils (%) (Auto) 1 % (0-3) Neutrophils # (Auto) 3.0 x10^3/uL (1.8-7.7) Lymphocytes # (Auto) 1.3 x10^3/uL (1.0-4.8) Monocytes # (Auto) 0.5 x10^3/uL (0.0-1.1) Eosinophils # (Auto) 0.1 x10^3/uL (0.0-0.7) Basophils # (Auto) 0.0 x10^3/uL (0.0-0.2) Sodium Level 138 mmol/L (136-145) Potassium Level 3.6 mmol/L (3.5-5.1) Chloride Level 102 mmol/L (98-107) Carbon Dioxide Level 25 mmol/L (21-32) Anion Gap 11 (6-14) Blood Urea Nitrogen 12 mg/dL (8-26) Creatinine 0.9 mg/dL (0.7-1.3) Estimated GFR (Cockcroft-Gault) 99.1 BUN/Creatinine Ratio 13 (6-20) Glucose Level 97 mg/dL (70-99) Calcium Level 9.1 mg/dL (8.5-10.1) Total Bilirubin 3.7 mg/dL (0.2-1.0) Aspartate Amino Transf (AST/SGOT) 93 U/L (15-37) Alanine Aminotransferase (ALT/SGPT) 43 U/L (16-63) Alkaline Phosphatase 232 U/L (46-116) Total Protein 7.1 g/dL (6.4-8.2) Albumin 3.2 g/dL (3.4-5.0) Albumin/Globulin Ratio 0.8 (1.0-1.7) Medications Current Medications Pantoprazole Sodium (PROTONIX VIAL for IV PUSH) 80 mg 1X ONCE IVP Last administered on 02/20/20at 07:27; Start 02/20/20 at 07:15; Stop 02/20/20 at 07: 16; Status DC Octreotide Acetate (SandoSTATIN) 50 mcg 1X ONCE IV Last administered on 02/20/20at 07:29; Start 02/20/20 at 07:15; Stop 02/20/20 at 07:16; Status DC Metoclopramide HCl (Reglan Vial) 10 mg 1X ONCE IVP Last administered on 02/20/20at 07:27; Start 02/20/20 at 07:15; Stop 02/20/20 at 07:16; Status DC Haloperidol Lactate (Haldol Inj) 5 mg STK-MED ONCE .ROUTE ; Start 02/20/20 at 08:08; Stop 02/20/20 at 08:09; Status DC Haloperidol Lactate (Haldol Inj) 2.5 mg 1X ONCE IVP Last administered on 02/20/20at 08:14; Start 02/20/20 at 08:15; Stop 02/20/20 at 08:16; Status DC Ondansetron HCl (Zofran) 4 mg PRN Q8HRS PRN IV NAUSEA/VOMITING; Start 02/20/20 at 08:30; Stop 02/20/20 at 09:15; Status DC Lorazepam (Ativan Inj) 1 mg 1X ONCE IVP Last administered on 02/20/20at 09:00; Start 02/20/20 at 09:00; Stop 02/20/20 at 09:03; Status DC Ondansetron HCl (Zofran) 4 mg PRN Q4HRS PRN IV NAUSEA/VOMITING Last administered on 02/21/20 20:00; Start 02/20/20 at 09:15 Magnesium Sulfate 100 ml @ 25 mls/hr 1X ONCE IV Last administered on 02/20/20at 10:40; Start 02/20/20 at 10:00; Stop 02/20/20 at 13:59; Status DC Pantoprazole Sodium (PROTONIX VIAL for IV PUSH) 40 mg BIDAC IVP Last administered on 02/21/20at 17:48; Start 02/20/20 at 09:30 Lorazepam (Ativan Inj) 1 mg PRN Q4HRS PRN IV For CIWA 8-14 Last administered on 02/21/20 02:27; Start 02/20/20 at 09:15; Stop 02/21/20 at 04:47; Status DC Haloperidol Lactate (Haldol Inj) 5 mg PRN Q4HRS PRN IVP Hallucinatns,Confusn,Delirium; Start 02/20/20 at 09:15 Buspirone HCl (Buspar) 5 mg PRN TID PRN PO Anxiety; Start 02/20/20 at 09:15 Clonidine HCl (Catapres) 0.1 mg PRN Q1HR PRN PO SBP > 180 or DBP > 100, MRX3; Start 02/20/20 at 09:15 Ferrous Sulfate (Feosol) 325 mg DAILYWBKFT PO Last administered on 02/21/20at 09:41; Start 02/20/20 at 12:00 Folic Acid (Folic Acid) 1 mg DAILY PO Last administered on 02/21/20at 09:40; Start 02/20/20 at 10:00 Hydromorphone HCl (Dilaudid) 2 mg PRN Q8HRS PRN PO MODERTE TO SEVERE PAIN; Start 02/20/20 at 09:15 Hydroxyzine HCl (Atarax) 75 mg TID PO Last administered on 02/21/20at 22:14; Start 02/20/20 at 10:00 Lactulose (Lactulose) 20 gm TID PO Last administered on 02/21/20at 22:14; Start 02/20/20 at 10:00 Olanzapine (ZyPREXA) 5 mg QHS PO Last administered on 02/21/20at 22:14; Start 02/20/20 at 21:00 Pantoprazole Sodium (Protonix) 40 mg DAILYAC PO ; Start 02/21/20 at 07:30; Status UNV Prazosin HCl (Minipress) 1 mg QHS PO Last administered on 02/21/20at 22:14; Start 02/20/20 at 21:00 Rifaximin (Xifaxan) 550 mg Q12HR PO Last administered on 02/21/20at 22:15; Start 02/20/20 at 10:00 Trazodone HCl (Desyrel) 100 mg QHS PO Last administered on 02/21/20at 22:15; Start 02/20/20 at 21:00 Ziprasidone (Geodon) 20 mg BID PO Last administered on 02/21/20at 22:14; Start 02/20/20 at 10:00 Benztropine Mesylate (Cogentin) 0.5 mg BID PO Last administered on 02/21/20at 22:15; Start 02/20/20 at 09:45 Multivitamins (Thera M Plus) 1 tab DAILY PO Last administered on 02/21/20at 09:41; Start 02/20/20 at 10:00 Thiamine Mononitrate (Vitamin B-1) 100 mg DAILY PO Last administered on 02/21/20 09:40; Start 02/20/20 at 10:00 Gabapentin (Neurontin) 300 mg TID PO Last administered on 02/21/20at 22:15; Start 02/20/20 at 10:00 Influenza Virus Vaccine Quadrival (Afluria Quad 2019-20 (3yr Up) Syringe) 0.5 ml ONCE ONCE VAX IM Last administered on 02/20/20at 12:13; Start 02/20/20 at 11:30; Stop 02/20/20 at 11:34; Status DC Metoclopramide HCl (Reglan Vial) 10 mg Q6HRS IVP Last administered on 02/22/20at 05:56; Start 02/20/20 at 14:00 Hydromorphone HCl (Dilaudid) 0.2 mg 1X ONCE IVP Last administered on 02/20/20at 14:52; Start 02/20/20 at 14:45; Stop 02/20/20 at 14:47; Status DC Hydromorphone HCl (Dilaudid) 0.4 mg PRN Q4HRS PRN IVP PAIN Last administered on 02/22/20at 02:44; Start 02/20/20 at 21:30 Multivitamins 10 ml/Thiamine HCl 100 mg/Folic Acid 1 mg/Sodium Chloride 1,011.2 ml @ 1,000.088 mls/hr 1X ONCE IV Last administered on 02/20/20at 22:03; Start 02/20/20 at 21:45; Stop 02/20/20 at 22:45; Status DC Lorazepam (Ativan Inj) 1 mg PRN Q1HR PRN IV For CIWA 8-14 Last administered on 02/21/20at 06:16; Start 02/21/20 at 04:45; Stop 02/21/20 at 13:48; Status DC Multivitamins 10 ml/Thiamine HCl 100 mg/Folic Acid 1 mg/Sodium Chloride 1,011.2 ml @ 100 mls/ hr DAILY IV ; Start 02/22/20 at 09:00; Stop 02/26/20 at 19:07 Multivitamins (Thera M Plus) 1 tab DAILY PO ; Start 02/26/20 at 09:00; Status UNV Folic Acid (Folic Acid) 1 mg DAILY PO ; Start 02/26/20 at 09:00; Status UNV Thiamine Mononitrate (Vitamin B-1) 100 mg DAILY PO ; Start 02/26/20 at 09:00; Status UNV Lorazepam (Ativan) 4 mg PRN Q1HR PRN PO For CIWA 8-14 Last administered on 02/22/20at 02:43; Start 02/21/20 at 13:45 Lorazepam (Ativan) 8 mg PRN Q1HR PRN PO For CIWA 15 or greater; Start 02/21/20 at 13:45 Lorazepam (Ativan Inj) 2 mg PRN Q1HR PRN IV For CIWA 8-14; Start 02/21/20 at 13:45 Lorazepam (Ativan Inj) 4 mg PRN Q1HR PRN IV For CIWA 15 or greater; Start 02/21/20 at 13:45 Haloperidol Lactate (Haldol Inj) 5 mg PRN Q4HRS PRN IVP Hallucinatns,Confusn,Delirium; Start 02/21/20 at 13:45; Status UNV Diphenhydramine HCl (Benadryl) 25 mg PRN Q15MIN PRN IVP EPS symptoms 2'Haldol admin; Start 02/21/20 at 13:45 Lorazepam (Ativan Inj) 2 mg PRN Q15MIN PRN IV SEE COMMENTS; Start 02/21/20 at 13:45; Status UNV Lorazepam (Ativan Inj) 4 mg PRN Q15MIN PRN IV SEE COMMENTS; Start 02/21/20 at 13:45; Status UNV Active Scripts Active Buspirone Hcl 5 Mg Tablet 5 Mg PO PRN TID PRN 30 Days Dilaudid (Hydromorphone Hcl) 2 Mg Tablet 2 Mg PO PRN Q8HRS PRN 6 Days Benztropine Mesylate 0.5 Mg Tablet 1 Tab PO BID 30 Days Geodon (Ziprasidone Hcl) 20 Mg Capsule 20 Mg PO BID 30 Days Trazodone Hcl 100 Mg Tablet 100 Mg PO QHS 30 Days Catapres (Clonidine Hcl) 0.1 Mg Tablet 0.1 Mg PO PRN Q1HR PRN 7 Days Can take for withdrawal symptoms Xifaxan (Rifaximin) 550 Mg Tablet 550 Mg PO Q12HR 30 Days Lactulose 20 Gm/30 Ml Solution 20 Gm PO TID 30 Days Prazosin Hcl 1 Mg Capsule 1 Cap PO QHS 30 Days Pantoprazole Sodium (Pantoprazole Sodium) 40 Mg Tablet.dr 40 Mg PO DAILYAC Multivitamins (Multivitamin) 1 Each Tablet 1 Tab PO DAILY Folic Acid 1 Mg Tablet 1 Tab PO DAILY Vitamin B-1 (Thiamine Hcl) 100 Mg Tablet 100 Mg PO DAILY 30 Days Feosol (Ferrous Sulfate) 325 Mg Tablet 325 Mg PO DAILYWBKFT 30 Days Reported Zyprexa (Olanzapine) 5 Mg Tablet 1 Tab PO QHS Hydroxyzine Hcl 25 Mg Tablet 3 Tab PO TID Vitals/I & O Vital Sign - Last 24 Hours 02/21/20 02/21/20 02/21/20 02/21/20 11:20 13:18 13:48 15:04 Temp 99.0 98.0 99.0 98.0 Pulse 146 139 Resp 18 18 B/P (MAP) 120/65 (83) 137/87 (104) Pulse Ox 93 94 O2 Delivery Room Air Room Air Room Air Room Air 02/21/20 02/21/20 02/21/20 02/21/20 17:49 18:19 19:52 20:00 Temp 98.5 98.5 Pulse 134 Resp 18 B/P (MAP) 149/103 (118) Pulse Ox 96 O2 Delivery Room Air Room Air Room Air Room Air 02/21/20 02/21/20 02/21/20 02/21/20 22:14 22:14 22:41 23:15 Temp 97.8 97.8 Pulse 134 137 Resp 18 B/P (MAP) 149/103 154/104 (121) Pulse Ox 95 O2 Delivery Room Air Room Air Room Air 02/22/20 02/22/20 02/22/20 02/22/20 02:44 03:10 03:30 07:51 Temp 97.8 97.8 Pulse 145 131 Resp 18 18 B/P (MAP) 155/95 (115) 148/76 (100) Pulse Ox 97 96 O2 Delivery Room Air Room Air Room Air Room Air Intake and Output 02/21/20 02/21/20 02/22/20 15:00 23:00 07:00 Intake Total 0 ml 0 ml Balance 0 ml 0 ml Hemodynamically unstable?: No Is patient in severe pain?: No Is NPO status required?: Yes KORY CRAIG MD Feb 22, 2020 08:07
[2020-02-22] MEDS: PANTOPRAZOLE IV PUSH 40 MG VIAL. IVP SCH ×2 (08:40→16:30)
[2020-02-22] MEDS: BENZTROPINE MESYLATE 1 MG TABLET. PO SCH ×2 (08:41→20:36)
[2020-02-22] MEDS: FERROUS SULFATE 325 MG TABLET. PO SCH (08:41)
[2020-02-22] MEDS: GABAPENTIN 300 MG CAPSULE. PO SCH ×3 (08:41→21:00)
[2020-02-22] MEDS: rifAXIMin 550 MG TABLET PO SCH ×2 (08:41→20:36)
[2020-02-22] MEDS: LACTULOSE 20 GM/30 ML SOLUTION. PO SCH ×4 (08:41→20:31)
[2020-02-22] MEDS: MULTIVIT INFUSN,ADULT 4,VIT K 10 ML, THIAMINE INJ 100 MG, FOLIC ACID INJ 1 MG in IV NOR... IV SCH (08:42)
[2020-02-22] MEDS: ZIPRASIDONE 20 MG CAPSULE PO SCH ×2 (09:46→20:35)
[2020-02-22] MEDS: hydrOXYzine 25 MG TABLET PO SCH ×3 (09:46→20:36)
[2020-02-22] MEDS: IV RINGERS,LACTATED 1000ML 1,000 ML IV SCH ×2 (10:14→21:32)
[2020-02-22] MEDS ORDERED: LIDOCAINE 2% PF 5 ML VIAL. ONE (10:41)
[2020-02-22] MEDS ORDERED: PROPOFOL 40 ML IV ONE (10:41)
--- NOTE | 2020-02-22 11:05 | PDOC4 ---
PROCEDURE Procedure EGD/banding. Indication: recurrent hematemesis Meds: per anesthesia Findings: E--grade III varices mid/distal esophagus (larger after rehydration?). 3 with white thrombus at tips. All 3 banded. Otherwise normal. G--Retained liquid, grossly broth. Hard to see his portal hypertensive gastropathy seconday to this. No other lesions. D--Normal to second portion. Meghann. well. IMP: Varices with stigmata of recent bleeding; all 3 banded. REC: Clears today. Begin advance diet in AM if no problems. If major rebleeding-->TIPS. Continue PPI. MEENA HASTINGS MD Feb 22, 2020 11:05
[2020-02-22 11:55] VITALS: BP 143/92
[2020-02-22 15:23] VITALS: BP 129/94
--- NOTE | 2020-02-22 15:36 | NUR ---
SS following up with discharge planning. Evans from PAT team met with pt. Pt reported to Evans that he is currently seeing a therapist in the community but could not recall there name. Evans provided pt with referral to [facility]. SS will continue to follow for discharge planning.
[2020-02-22 19:27] VITALS: BP 139/101
--- NOTE | 2020-02-22 20:02 | NUR ---
patient is tachycardic. [place] CIWA does not include category for tachycardia, however it is standard practice to include sympathetic nervous system response to alcohol withdrawal on CIWA scale.
[2020-02-22] MEDS: OLANZapine 5 MG TABLET PO SCH (20:36)
[2020-02-22] MEDS: PRAZOSIN 1 MG CAPSULE. PO SCH (20:36)
[2020-02-22] MEDS: traZODone 100 MG TABLET. PO SCH (20:36)
[2020-02-22] MEDS: ONDANSETRON PF 4 MG/2 ML VIAL. IV PRN (21:31)
[2020-02-23] MEDS: HYDROmorphone 2 MG TABLET PO PRN ×3 (02:00→18:22)
[2020-02-23] MEDS: METOCLOPRAMIDE HCL 10 MG/2 ML VIAL. IVP SCH ×2 (03:18→06:28)
[2020-02-23 03:22] VITALS: BP 142/84
[2020-02-23] MEDS: HYDROmorphone 2 MG/ML VIAL IVP PRN ×2 (05:08→14:11)
[2020-02-23 05:28] LABS: HEMOGLOBIN 12.1 g/dL (13.0-17.5); RED BLOOD COUNT 3.81 x10^6/uL (4.30-5.70); RED CELL DISTRIBUTION WIDTH 18.6 % (11.5-14.5); WHITE BLOOD COUNT 3.9 x10^3/uL (4.0-11.0)
[2020-02-23] MEDS: IV RINGERS,LACTATED 1000ML 1,000 ML IV SCH ×2 (06:28→16:33)
[2020-02-23 07:00] VITALS: BP 137/95
[2020-02-23] MEDS: PANTOPRAZOLE IV PUSH 40 MG VIAL. IVP SCH (08:37)
[2020-02-23] MEDS: LACTULOSE 20 GM/30 ML SOLUTION. PO SCH ×3 (08:38→20:39)
[2020-02-23] MEDS: MULTIVIT INFUSN,ADULT 4,VIT K 10 ML, THIAMINE INJ 100 MG, FOLIC ACID INJ 1 MG in IV NOR... IV SCH (08:39)
[2020-02-23] MEDS: hydrOXYzine 25 MG TABLET PO SCH ×3 (08:39→20:38)
[2020-02-23] MEDS: GABAPENTIN 300 MG CAPSULE. PO SCH ×3 (08:41→20:39)
[2020-02-23] MEDS: BENZTROPINE MESYLATE 1 MG TABLET. PO SCH ×2 (08:42→20:39)
[2020-02-23] MEDS: FERROUS SULFATE 325 MG TABLET. PO SCH (08:43)
[2020-02-23] MEDS: ZIPRASIDONE 20 MG CAPSULE PO SCH ×2 (08:43→20:38)
[2020-02-23] MEDS: rifAXIMin 550 MG TABLET PO SCH ×2 (08:43→20:39)
--- NOTE | 2020-02-23 09:40 | PDOC ---
Subjective: Subjective: He's currently asking nurse for more pain meds. Tells me he is so nauseated and taste blood in his mouth but wants a chicken sandwich. Objective: Vital Signs: Vital Signs Date Time Temp Pulse Resp B/P (MAP) Pulse Ox O2 Delivery O2 Flow Rate FiO2 02/23/20 08:41 Room Air 02/23/20 07:00 97.7 108 16 137/95 (109) 100 97.7 02/22/20 21:00 2.0 Labs: Laboratory Tests Test 02/23/20 03:54 White Blood Count 3.9 x10^3/uL Red Blood Count 3.81 x10^6/uL Hemoglobin 12.1 g/dL Hematocrit 37.0 % Mean Corpuscular Volume 97 fL Mean Corpuscular Hemoglobin 32 pg Mean Corpuscular Hemoglobin Concent 33 g/dL Red Cell Distribution Width 18.6 % Platelet Count 45 x10^3/uL Imaging: EGD 02/21 E--grade III varices mid/distal esophagus (larger after rehydration?). 3 with white thrombus at tips. All 3 banded. Otherwise normal. G--Retained liquid, grossly broth. Hard to see his portal hypertensive gastropathy seconday to this. No other lesions. D--Normal to second portion. IMP: Varices with stigmata of recent bleeding; all 3 banded. REC: Clears today. Begin advance diet in AM if no problems. If major rebleeding-->TIPS. Continue PPI. PE: GEN: NAD, sitting up in bed LUNGS: CTAB HEART: RRR ABD: RUQ tenderness per usual, soft NEURO/PSYCH: A & O 3 A/P: Hematemesis, cirrhosis Grade III varices s/p banding 02/21 Chronic pain, psych issues -- Backing off on pain meds would probably help nausea. Many complaints but wants to eat - will review w/ Dr. Florez. Still getting IV PPI and Reglan. Hemodynamically unstable?: No Is patient in severe pain?: No Is NPO status required?: No JANET STEWART Feb 23, 2020 09:40
[2020-02-23] MEDS: ONDANSETRON PF 4 MG/2 ML VIAL. IV PRN ×2 (10:11→14:12)
--- NOTE | 2020-02-23 10:42 | PDOC ---
PROGRESS NOTES History of Present Illness History of Present Illness VTE Prophylaxis Ordered VTE Prophylaxis Devices: No VTE Pharmacological Prophylaxi: Contraindicated Assessment/Plan Assessment/Plan A/P: Hematemeis - Hb stable. GI consulted. acute variceal bleed EtOH abuse - with acute intoxication on admission. MONA scale, banana bag. Will add gabapentin based on new clinical trial data to help him avoid relapse Acute alcohol intoxication - will cont MONA, banana bag Major depression - needs outpatient treatment Right clavicle fracture - sling and oral diluadid Thrombocytopenia - likely related to liver disease, will minimize his exposure to 1st generation anti-psychotics based on this. 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 Will cont his home medications which have helped reduce his hospitalizations Smoker - counseled on cessation Alpha-1 antitrypsin deficiency - MZ mutation - increases his risk of liver disease given his ETOH abuse DJD - pain control Transaminitis - fits ETOH pattern. trend Hepatic cirrhosis and findings of portal hypertension , C/W END ORGAN INJURY. INR 1.5 and Bilirubin 2.6 Esophageal varices - numerous, :Varices with stigmata of recent bleeding; all 3 banded. 02/21 Gallstone lodged at the gallbladder neck, no gallbladder wall thickening - seen by general surgery previously, no indication for surgery FEN - ice chips PPX - Protonix, SCDs FULL CODE Dispo - med tele for acute UGIB ice chips, IV Reglan, IV PPI. 02/20 abd pain slow to improve Indication: recurrent hematemesis 02/21 Meds: per anesthesia Findings: E--grade III varices mid/distal esophagus (larger after rehydration?). 3 with white thrombus at tips. All 3 banded. Otherwise normal. G--Retained liquid, grossly broth. Hard to see his portal hypertensive gastropathy seconday to this. No other lesions. D--Normal to second portion. Meghann. well. IMP: Varices with stigmata of recent bleeding; all 3 banded. REC: Clears today. Begin advance diet in AM if no problems. If major rebleeding-->TIPS. Continue PPI. MEENA HASTINGS MD Feb 22, 2020 11:05 Vitals Vitals Vital Signs Date Time Temp Pulse Resp B/P (MAP) Pulse Ox O2 Delivery O2 Flow Rate FiO2 02/23/20 08:41 Room Air 02/23/20 07:00 97.7 108 16 137/95 (109) 100 97.7 02/22/20 21:00 2.0 Physical Exam General: Alert, Oriented X3, Cooperative, No acute distress Heart: Regular rate, Normal S1, Normal S2, No murmurs Lungs: Clear Abdomen: Normal bowel sounds, Soft, No tenderness, No hepatosplenomegaly, No masses Extremities: No clubbing, No cyanosis, No edema, Normal pulses, Other (Tenderness on right clavicle) Skin: No rashes, No breakdown, No significant lesion Labs LABS Laboratory Tests Test 02/23/20 03:54 White Blood Count 3.9 x10^3/uL (4.0-11.0) Red Blood Count 3.81 x10^6/uL (4.30-5.70) Hemoglobin 12.1 g/dL (13.0-17.5) Hematocrit 37.0 % (39.0-53.0) Mean Corpuscular Volume 97 fL (79-100) Mean Corpuscular Hemoglobin 32 pg (25-35) Mean Corpuscular Hemoglobin Concent 33 g/dL (31-37) Red Cell Distribution Width 18.6 % (11.5-14.5) Platelet Count 45 x10^3/uL (140-400) Comment Review of Relevant I have reviewed the following items mc (where applicable) has been applied. Labs Laboratory Tests Test 02/22/20 04:28 02/23/20 03:54 White Blood Count 4.9 x10^3/uL (4.0-11.0) 3.9 x10^3/uL (4.0-11.0) Red Blood Count 4.18 x10^6/uL (4.30-5.70) 3.81 x10^6/uL (4.30-5.70) Hemoglobin 13.4 g/dL (13.0-17.5) 12.1 g/dL (13.0-17.5) Hematocrit 40.4 % (39.0-53.0) 37.0 % (39.0-53.0) Mean Corpuscular Volume 97 fL (79-100) 97 fL (79-100) Mean Corpuscular Hemoglobin 32 pg (25-35) 32 pg (25-35) Mean Corpuscular Hemoglobin Concent 33 g/dL (31-37) 33 g/dL (31-37) Red Cell Distribution Width 19.1 % (11.5-14.5) 18.6 % (11.5-14.5) Platelet Count 59 x10^3/uL (140-400) 45 x10^3/uL (140-400) Neutrophils (%) (Auto) 61 % (31-73) Lymphocytes (%) (Auto) 26 % (24-48) Monocytes (%) (Auto) 10 % (0-9) Eosinophils (%) (Auto) 3 % (0-3) Basophils (%) (Auto) 1 % (0-3) Neutrophils # (Auto) 3.0 x10^3/uL (1.8-7.7) Lymphocytes # (Auto) 1.3 x10^3/uL (1.0-4.8) Monocytes # (Auto) 0.5 x10^3/uL (0.0-1.1) Eosinophils # (Auto) 0.1 x10^3/uL (0.0-0.7) Basophils # (Auto) 0.0 x10^3/uL (0.0-0.2) Sodium Level 138 mmol/L (136-145) Potassium Level 3.6 mmol/L (3.5-5.1) Chloride Level 102 mmol/L (98-107) Carbon Dioxide Level 25 mmol/L (21-32) Anion Gap 11 (6-14) Blood Urea Nitrogen 12 mg/dL (8-26) Creatinine 0.9 mg/dL (0.7-1.3) Estimated GFR (Cockcroft-Gault) 99.1 BUN/Creatinine Ratio 13 (6-20) Glucose Level 97 mg/dL (70-99) Calcium Level 9.1 mg/dL (8.5-10.1) Total Bilirubin 3.7 mg/dL (0.2-1.0) Aspartate Amino Transf (AST/SGOT) 93 U/L (15-37) Alanine Aminotransferase (ALT/SGPT) 43 U/L (16-63) Alkaline Phosphatase 232 U/L (46-116) Total Protein 7.1 g/dL (6.4-8.2) Albumin 3.2 g/dL (3.4-5.0) Albumin/Globulin Ratio 0.8 (1.0-1.7) Laboratory Tests Test 02/23/20 03:54 White Blood Count 3.9 x10^3/uL (4.0-11.0) Red Blood Count 3.81 x10^6/uL (4.30-5.70) Hemoglobin 12.1 g/dL (13.0-17.5) Hematocrit 37.0 % (39.0-53.0) Mean Corpuscular Volume 97 fL (79-100) Mean Corpuscular Hemoglobin 32 pg (25-35) Mean Corpuscular Hemoglobin Concent 33 g/dL (31-37) Red Cell Distribution Width 18.6 % (11.5-14.5) Platelet Count 45 x10^3/uL (140-400) Medications Current Medications Pantoprazole Sodium (PROTONIX VIAL for IV PUSH) 80 mg 1X ONCE IVP Last administered on 02/20/20at 07:27; Start 02/20/20 at 07:15; Stop 02/20/20 at 07:16; Status DC Octreotide Acetate (SandoSTATIN) 50 mcg 1X ONCE IV Last administered on 02/20/20at 07:29; Start 02/20/20 at 07:15; Stop 02/20/20 at 07:16; Status DC Metoclopramide HCl (Reglan Vial) 10 mg 1X ONCE IVP Last administered on 02/20/20at 07:27; Start 02/20/20 at 07:15; Stop 02/20/20 at 07:16; Status DC Haloperidol Lactate (Haldol Inj) 5 mg STK-MED ONCE .ROUTE ; Start 02/20/20 at 08:08; Stop 02/20/20 at 08:09; Status DC Haloperidol Lactate (Haldol Inj) 2.5 mg 1X ONCE IVP Last administered on 02/20/20at 08:14; Start 02/20/20 at 08:15; Stop 02/20/20 at 08:16; Status DC Ondansetron HCl (Zofran) 4 mg PRN Q8HRS PRN IV NAUSEA/VOMITING; Start 02/20/20 at 08:30; Stop 02/20/20 at 09:15; Status DC Lorazepam (Ativan Inj) 1 mg 1X ONCE IVP Last administered on 02/20/20at 09:00; Start 02/20/20 at 09:00; Stop 02/20/20 at 09:03; Status DC Ondansetron HCl (Zofran) 4 mg PRN Q4HRS PRN IV NAUSEA/VOMITING Last administered on 02/23/20at 10:11; Start 02/20/20 at 09:15 Magnesium Sulfate 100 ml @ 25 mls/hr 1X ONCE IV Last administered on 02/20/20at 10:40; Start 02/20/20 at 10:00; Stop 02/20/20 at 13:59; Status DC Pantoprazole Sodium (PROTONIX VIAL for IV PUSH) 40 mg BIDAC IVP Last administered on 02/23/20at 08:37; Start 02/20/20 at 09:30 Lorazepam (Ativan Inj) 1 mg PRN Q4HRS PRN IV For CIWA 8-14 Last administered on 02/21/20at 02:27; Start 02/20/20 at 09:15; Stop 02/21/20 at 04:47; Status DC Haloperidol Lactate (Haldol Inj) 5 mg PRN Q4HRS PRN IVP H allucinatns,Confusn,Delirium; Start 02/20/20 at 09:15 Buspirone HCl (Buspar) 5 mg PRN TID PRN PO Anxiety; Start 02/20/20 at 09:15 Clonidine HCl (Catapres) 0.1 mg PRN Q1HR PRN PO SBP > 180 or DBP > 100, MRX3; Start 02/20/20 at 09:15 Ferrous Sulfate (Feosol) 325 mg DAILYWBKFT PO Last administered on 02/23/20at 08:43; Start 02/20/20 at 12:00 Folic Acid (Folic Acid) 1 mg DAILY PO Last administered on 02/21/20at 09:40; Start 02/20/20 at 10:00; Stop 02/22/20 at 08:27; Status DC Hydromorphone HCl (Dilaudid) 2 mg PRN Q8HRS PRN PO MODERTE TO SEVERE PAIN Last administered on 02/23/20at 08:41; Start 02/20/20 at 09:15 Hydroxyzine HCl (Atarax) 75 mg TID PO Last administered on 02/23/20 08:39; Start 02/20/20 at 10:00 Lactulose (Lactulose) 20 gm TID PO Last administered on 02/23/20 08:38; Start 02/20/20 at 10:00 Olanzapine (ZyPREXA) 5 mg QHS PO Last administered on 02/22/20 20:36; Start at 21:00 Pantoprazole Sodium (Protonix) 40 mg DAILYAC PO ; Start 02/21/20 at 07:30; Status UNV Prazosin HCl (Minipress) 1 mg QHS PO Last administered on 02/22/20 20:36; Start 02/20/20 at 21:00 Rifaximin (Xifaxan) 550 mg Q12HR PO Last administered on 02/23/20 08:43; Start 02/20/20 at 10:00 Trazodone HCl (Desyrel) 100 mg QHS PO Last administered on 02/22/20 20:36; Start 02/20/20 at 21:00 Ziprasidone (Geodon) 20 mg BID PO Last administered on 02/23/20 08:43; Start 02/20/20 at 10:00 Benztropine Mesylate (Cogentin) 0.5 mg BID PO Last administered on 02/23/20 08:42; Start 02/20/20 at 09:45 Multivitamins (Thera M Plus) 1 tab DAILY PO Last administered on 02/21/20 09:41; Start 02/20/20 at 10:00; Stop 02/22/20 at 08:28; Status DC Thiamine Mononitrate (Vitamin B-1) 100 mg DAILY PO Last administered on 02/21/20 09:40; Start 02/20/20 at 10:00; Stop 02/22/20 at 08:28; Status DC Gabapentin (Neurontin) 300 mg TID PO Last administered on 02/23/20 08:41; Start 02/20/20 at 10:00 Influenza Virus Vaccine Quadrival (Afluria Quad 2019-20 (3yr Up) Syringe) 0.5 ml ONCE ONCE VAX IM Last administered on 02/20/20at 12:13; Start 02/20/20 at 11:30; Stop 02/20/20 at 11:34; Status DC Metoclopramide HCl (Reglan Vial) 10 mg Q6HRS IVP Last administered on 02/23/20at 06:28; Start 02/20/20 at 14:00 Hydromorphone HCl (Dilaudid) 0.2 mg 1X ONCE IVP Last administered on 02/20/20at 14:52; Start 02/20/20 at 14:45; Stop 02/20/20 at 14:47; Status DC Hydromorphone HCl (Dilaudid) 0.4 mg PRN Q4HRS PRN IVP PAIN Last administered on 02/23/20at 05:08; Start 02/20/20 at 21:30 Multivitamins 10 ml/Thiamine HCl 100 mg/Folic Acid 1 mg/Sodium Chloride 1,011.2 ml @ 1,000.088 mls/hr 1X ONCE IV Last administered on 02/20/20at 22:03; Start 02/20/20 at 21:45; Stop 02/20/20 at 22:45; Status DC Lorazepam (Ativan Inj) 1 mg PRN Q1HR PRN IV For CIWA 8-14 Last administered on 02/21/20at 06:16; Start 02/21/20 at 04:45; Stop 02/21/20 at 13:48; Status DC Multivitamins 10 ml/Thiamine HCl 100 mg/Folic Acid 1 mg/Sodium Chloride 1,011.2 ml @ 100 mls/ hr DAILY IV Last administered on 02/23/20at 08:39; Start 02/22/20 at 09:00; Stop 02/26/20 at 19:07 Multivitamins (Thera M Plus) 1 tab DAILY PO ; Start 02/26/20 at 09:00; Status UNV Folic Acid (Folic Acid) 1 mg DAILY PO ; Start 02/26/20 at 09:00; Status UNV Thiamine Mononitrate (Vitamin B-1) 100 mg DAILY PO ; Start 02/26/20 at 09:00; Status UNV Lorazepam (Ativan) 4 mg PRN Q1HR PRN PO For CIWA 8-14 Last administered on 02/22/20at 02:43; Start 02/21/20 at 13:45 Lorazepam (Ativan) 8 mg PRN Q1HR PRN PO For CIWA 15 or greater; Start 02/21/20 at 13:45 Lorazepam (Ativan Inj) 2 mg PRN Q1HR PRN IV For CIWA 8-14 Last administered on 02/23/20at 10:11; Start 02/21/20 at 13:45 Lorazepam (Ativan Inj) 4 mg PRN Q1HR PRN IV For CIWA 15 or greater; Start 02/21/20 at 13:45 Haloperidol Lactate (Haldol Inj) 5 mg PRN Q4HRS PRN IVP Hallucinatns,Confusn,Delirium; Start 02/21/20 at 13:45; Status UNV Diphenhydramine HCl (Benadryl) 25 mg PRN Q15MIN PRN IVP EPS symptoms 2'Haldol admin; Start 02/21/20 at 13:45 Lorazepam (Ativan Inj) 2 mg PRN Q15MIN PRN IV SEE COMMENTS; Start 02/21/20 at 13:45; Status UNV Lorazepam (Ativan Inj) 4 mg PRN Q15MIN PRN IV SEE COMMENTS; Start 02/21/20 at 13:45; Status UNV Folic Acid (Folic Acid) 1 mg DAILY PO ; Start 02/27/20 at 09:00 Multivitamins (Thera M Plus) 1 tab DAILY PO ; Start 02/27/20 at 09:00 Thiamine Mononitrate (Vitamin B-1) 100 mg DAILY PO ; Start 02/27/20 at 09:00 Ringer's Solution 1,000 ml @ 100 mls/hr Q10H IV Last administered on 02/23/20at 06:28; Start 02/22/20 at 10:15 Propofol 40 ml @ As Directed STK-MED ONCE IV ; Start 02/22/20 at 10:41; Stop 02/22/20 at 10:41; Status DC Lidocaine HCl (Lidocaine Pf 2% Vial) 5 ml STK-MED ONCE .ROUTE ; Start 02/22/20 at 10:41; Stop 02/22/20 at 10:41; Status DC Active Scripts Active Buspirone Hcl 5 Mg Tablet 5 Mg PO PRN TID PRN 30 Days Dilaudid (Hydromorphone Hcl) 2 Mg Tablet 2 Mg PO PRN Q8HRS PRN 6 Days Benztropine Mesylate 0.5 Mg Tablet 1 Tab PO BID 30 Days Geodon (Ziprasidone Hcl) 20 Mg Capsule 20 Mg PO BID 30 Days Trazodone Hcl 100 Mg Tablet 100 Mg PO QHS 30 Days Catapres (Clonidine Hcl) 0.1 Mg Tablet 0.1 Mg PO PRN Q1HR PRN 7 Days Can take for withdrawal symptoms Xifaxan (Rifaximin) 550 Mg Tablet 550 Mg PO Q12HR 30 Days Lactulose 20 Gm/30 Ml Solution 20 Gm PO TID 30 Days Prazosin Hcl 1 Mg Capsule 1 Cap PO QHS 30 Days Pantoprazole Sodium (Pantoprazole Sodium) 40 Mg Tablet.dr 40 Mg PO DAILYAC Multivitamins (Multivitamin) 1 Each Tablet 1 Tab PO DAILY Folic Acid 1 Mg Tablet 1 Tab PO DAILY Vitamin B-1 (Thiamine Hcl) 100 Mg Tablet 100 Mg PO DAILY 30 Days Feosol (Ferrous Sulfate) 325 Mg Tablet 325 Mg PO DAILYWBKFT 30 Days Reported Zyprexa (Olanzapine) 5 Mg Tablet 1 Tab PO QHS Hydroxyzine Hcl 25 Mg Tablet 3 Tab PO TID Vitals/I & O Vital Sign - Last 24 Hours 02/22/20 02/22/20 02/22/20 02/22/20 11:00 11:11 11:24 11:55 Temp 97.2 97.9 97.2 97.9 Pulse 123 121 123 126 Resp 16 16 20 18 B/P (MAP) 102/59 127/72 149/91 143/92 (109) Pulse Ox 97 100 96 92 O2 Delivery Nasal Cannula Nasal Cannula Room Air Room Air O2 Flow Rate 5 2 02/22/20 02/22/20 02/22/20 02/22/20 15:23 19:27 20:00 20:36 Temp 97.9 98.0 97.9 98.0 Pulse 126 129 129 Resp 18 18 B/P (MAP) 129/94 (106) 139/101 (114) 139/101 Pulse Ox 94 97 O2 Delivery Room Air Room Air Room Air 02/22/20 02/22/20 02/23/20 02/23/20 21:00 23:17 02:00 03:22 Temp 98.4 98.4 Pulse 121 Resp 20 16 B/P (MAP) 142/84 (103) Pulse Ox 97 92 O2 Delivery Room Air Room Air Room Air Room Air O2 Flow Rate 2.0 02/23/20 02/23/20 07:00 08:41 Temp 97.7 97.7 Pulse 108 Resp 16 B/P (MAP) 137/95 (109) Pulse Ox 100 O2 Delivery Room Air Room Air Intake and Output 02/22/20 02/22/20 02/23/20 15:00 23:00 07:00 Intake Total 550 ml 120 ml 690 ml Balance 550 ml 120 ml 690 ml Hemodynamically unstable?: No Is patient in severe pain?: No Is NPO status required?: No KORY CRAIG MD Feb 23, 2020 10:42
[2020-02-23 11:19] VITALS: BP 146/97
[2020-02-23 15:00] VITALS: BP 119/82
[2020-02-23] MEDS: PROPRANOLOL 10 MG TABLET. PO SCH ×2 (16:33→20:39)
[2020-02-23 19:00] VITALS: BP 139/74
[2020-02-23] MEDS: PRAZOSIN 1 MG CAPSULE. PO SCH (20:39)
[2020-02-23] MEDS: OLANZapine 5 MG TABLET PO SCH (20:39)
[2020-02-23] MEDS: traZODone 100 MG TABLET. PO SCH (20:39)
[2020-02-23 22:33] VITALS: BP 122/76
[2020-02-24] MEDS: IV RINGERS,LACTATED 1000ML 1,000 ML IV SCH ×3 (04:04→22:15)
[2020-02-24] MEDS: HYDROmorphone 2 MG TABLET PO PRN ×3 (04:47→23:09)
--- NOTE | 2020-02-24 04:52 | NUR ---
Despite frequent reminder, pt continues to try to get OOB without assistance, setting off bed alarm often. Pt asks for pain meds, ativan, and "muscle relaxer" q hr. When giving PO dilaudid pt asks "since it is only one pill, can you double the dose because that is what they do [facility]." Education provided on medication orders and following them out with little evidence of learning. Will monitor for changes.
[2020-02-24 07:00] VITALS: BP 147/85
[2020-02-24] MEDS: GABAPENTIN 300 MG CAPSULE. PO SCH ×3 (08:46→20:51)
[2020-02-24] MEDS: ZIPRASIDONE 20 MG CAPSULE PO SCH ×2 (08:46→20:50)
[2020-02-24] MEDS: MULTIVIT INFUSN,ADULT 4,VIT K 10 ML, THIAMINE INJ 100 MG, FOLIC ACID INJ 1 MG in IV NOR... IV SCH (08:46)
[2020-02-24] MEDS: PROPRANOLOL 10 MG TABLET. PO SCH ×2 (08:46→20:50)
[2020-02-24] MEDS: rifAXIMin 550 MG TABLET PO SCH ×2 (08:46→20:50)
[2020-02-24] MEDS: FERROUS SULFATE 325 MG TABLET. PO SCH (08:46)
[2020-02-24] MEDS: BENZTROPINE MESYLATE 1 MG TABLET. PO SCH ×2 (08:46→20:51)
[2020-02-24] MEDS: hydrOXYzine 25 MG TABLET PO SCH ×3 (08:46→20:50)
[2020-02-24] MEDS: PANTOPRAZOLE 40 MG TABLET.DR. PO SCH (08:46)
[2020-02-24] MEDS: LACTULOSE 20 GM/30 ML SOLUTION. PO SCH ×3 (08:47→20:55)
--- NOTE | 2020-02-24 09:36 | PDOC ---
Subjective: Subjective: Says that Phil and Bruce over there helped him stop shaking. Objective: Objective: D/w nurse - no bleeding, tolerating diet, has been confused. Vital Signs: Vital Signs Date Time Temp Pulse Resp B/P (MAP) Pulse Ox O2 Delivery O2 Flow Rate FiO2 02/24/20 08:46 82 147/85 02/24/20 07:00 97.8 18 90 Room Air 97.8 02/23/20 14:41 2.0 PE: GEN: NAD, was alseep LUNGS: clear anteriorly HEART: RRR ABD: soft NEURO/PSYCH: confused (?hallucinating) A/P: Hematemesis - resolved Chronically elevated LFTs Cirrhosis, grade III varices s/p banding 02/21 Chronic pain, psych issues/confusion -- Continue PPI. Hemodynamically unstable?: No Is patient in severe pain?: No Is NPO status required?: No JANET STEWART Feb 24, 2020 09:36
--- NOTE | 2020-02-24 10:20 | PDOC ---
PROGRESS NOTES History of Present Illness History of Present Illness VTE Prophylaxis Ordered VTE Prophylaxis Devices: No VTE Pharmacological Prophylaxi: Contraindicated Assessment/Plan Assessment/Plan A/P: Hematemeis - Hb stable. GI consulted. acute variceal bleed EtOH abuse - with acute intoxication on admission. GANESHWA scale, banana bag. Will add gabapentin based on new clinical trial data to help him avoid relapse Acute alcohol intoxication - will cont MONA, banana bag Major depression - needs outpatient treatment Right clavicle fracture - sling and oral diluadid Thrombocytopenia - likely related to liver disease, will minimize his exposure to 1st generation anti-psychotics based on this. 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 Will cont his home medications which have helped reduce his hospitalizations Smoker - counseled on cessation Alpha-1 antitrypsin deficiency - MZ mutation - increases his risk of liver disease given his ETOH abuse DJD - pain control Transaminitis - fits ETOH pattern. trend Hepatic cirrhosis and findings of portal hypertension , C/W END ORGAN INJURY. INR 1.5 and Bilirubin 2.6 Esophageal varices - numerous, :Varices with stigmata of recent bleeding; all 3 banded. 02/21 Gallstone lodged at the gallbladder neck, no gallbladder wall thickening - seen by general surgery previously, no indication for surgery FEN - ice chips PPX - Protonix, SCDs FULL CODE Dispo - med tele for acute UGIB ice chips, IV Reglan, IV PPI. 02/20 abd pain slow to improve Indication: recurrent hematemesis 02/21 Meds: per anesthesia Findings: E--grade III varices mid/distal esophagus (larger after rehydration?). 3 with white thrombus at tips. All 3 banded. Otherwise normal. G--Retained liquid, grossly broth. Hard to see his portal hypertensive gastropathy seconday to this. No other lesions. D--Normal to second portion. Meghann. well. IMP: Varices with stigmata of recent bleeding; all 3 banded. REC: Clears today. Begin advance diet in AM if no problems. If major rebleeding-->TIPS. Continue PPI. MEENA HASTINGS MD Feb 22, 2020 11:05 02/23 agitated, some hallucinations today, now on toprol bid Vitals Vitals Vital Signs Date Time Temp Pulse Resp B/P (MAP) Pulse Ox O2 Delivery O2 Flow Rate FiO2 02/24/20 08:46 82 147/85 02/24/20 07:00 97.8 18 90 Room Air 97.8 02/23/20 14:41 2.0 Physical Exam General: Alert, Oriented X3, Cooperative, No acute distress, mild distress Heart: Regular rate, Normal S1, Normal S2, No murmurs Lungs: Clear Abdomen: Normal bowel sounds, Soft, No tenderness, No hepatosplenomegaly, No masses Extremities: No clubbing, No cyanosis, No edema, Normal pulses, Other (Tenderness on right clavicle) Skin: No rashes, No breakdown, No significant lesion Comment Review of Relevant I have reviewed the following items mc (where applicable) has been applied. Labs Laboratory Tests Test 02/23/20 03:54 White Blood Count 3.9 x10^3/uL (4.0-11.0) Red Blood Count 3.81 x10^6/uL (4.30-5.70) Hemoglobin 12.1 g/dL (13.0-17.5) Hematocrit 37.0 % (39.0-53.0) Mean Corpuscular Volume 97 fL (79-100) Mean Corpuscular Hemoglobin 32 pg (25-35) Mean Corpuscular Hemoglobin Concent 33 g/dL (31-37) Red Cell Distribution Width 18.6 % (11.5-14.5) Platelet Count 45 x10^3/uL (140-400) Medications Current Medications Pantoprazole Sodium (PROTONIX VIAL for IV PUSH) 80 mg 1X ONCE IVP Last administered on 02/20/20at 07:27; Start 02/20/20 at 07:15; Stop 02/20/20 at 07:16; Status DC Octreotide Acetate (SandoSTATIN) 50 mcg 1X ONCE IV Last administered on 02/20/20at 07:29; Start 02/20/20 at 07:15; Stop 02/20/20 at 07:16; Status DC Metoclopramide HCl (Reglan Vial) 10 mg 1X ONCE IVP Last administered on 02/20/20at 07:27; Start 02/20/20 at 07:15; Stop 02/20/20 at 07:16; Status DC Haloperidol Lactate (Haldol Inj) 5 mg STK-MED ONCE .ROUTE ; Start 02/20/20 at 08:08; Stop 02/20/20 at 08:09; Status DC Haloperidol Lactate (Haldol Inj) 2.5 mg 1X ONCE IVP Last administered on 02/20/20at 08:14; Start 02/20/20 at 08:15; Stop 02/20/20 at 08:16; Status DC Ondansetron HCl (Zofran) 4 mg PRN Q8HRS PRN IV NAUSEA/VOMITING; Start 02/20/20 at 08:30; Stop 02/20/20 at 09:15; Status DC Lorazepam (Ativan Inj) 1 mg 1X ONCE IVP Last administered on 02/20/20at 09:00; Start 02/20/20 at 09:00; Stop 02/20/20 at 09:03; Status DC Ondansetron HCl (Zofran) 4 mg PRN Q4HRS PRN IV NAUSEA/VOMITING Last administered on 02/23/20at 14:12; Start 02/20/20 at 09:15 Magnesium Sulfate 100 ml @ 25 mls/hr 1X ONCE IV Last administered on 02/20/20at 10:40; Start 02/20/20 at 10:00; Stop 02/20/20 at 13:59; Status DC Pantoprazole Sodium (PROTONIX VIAL for IV PUSH) 40 mg BIDAC IVP Last administered on 02/23/20at 08:37; Start 02/20/20 at 09:30; Stop 02/23/20 at 11:38; Status DC Lorazepam (Ativan Inj) 1 mg PRN Q4HRS PRN IV For CIWA 8-14 Last administered on 02/21/20at 02:27; Start 02/20/20 at 09:15; Stop 02/21/20 at 04:47; Status DC Haloperidol Lactate (Haldol Inj) 5 mg PRN Q4HRS PRN IVP Hallucinatns,Confusn,Delirium; Start 02/20/20 at 09:15 Buspirone HCl (Buspar) 5 mg PRN TID PRN PO Anxiety; Start 02/20/20 at 09:15 Clonidine HCl (Catapres) 0.1 mg PRN Q1HR PRN PO SBP > 180 or DBP > 100, MRX3; Start 02/20/20 at 09:15 Ferrous Sulfate (Feosol) 325 mg DAILYWBKFT PO Last administered on 02/24/20 08:46; Start 02/20/20 at 12:00 Folic Acid (Folic Acid) 1 mg DAILY PO Last administered on 02/21/20 09:40; Start 02/20/20 at 10:00; Stop 02/22/20 at 08:27; Status DC Hydromorphone HCl (Dilaudid) 2 mg PRN Q8HRS PRN PO MODERTE TO SEVERE PAIN Last administered on 02/24/20 04:47; Start 02/20/20 at 09:15 Hydroxyzine HCl (Atarax) 75 mg TID PO Last administered on 02/24/20 08:46; Start 02/20/20 at 10:00 Lactulose (Lactulose) 20 gm TID PO Last administered on 02/23/20 20:39; Start 02/20/20 at 10:00 Olanzapine (ZyPREXA) 5 mg QHS PO Last administered on 02/23/20 20:39; Start 02/20/20 at 21:00 Pantoprazole Sodium (Protonix) 40 mg DAILYAC PO ; Start 02/21/20 at 07:30; Status UNV Prazosin HCl (Minipress) 1 mg QHS PO Last administered on 02/23/20 20:39; Start 02/20/20 at 21:00 Rifaximin (Xifaxan) 550 mg Q12HR PO Last administered on 02/24/20 08:46; Start 02/20/20 at 10:00 Trazodone HCl (Desyrel) 100 mg QHS PO Last administered on 02/23/20 20:39; Start 02/20/20 at 21:00 Ziprasidone (Geodon) 20 mg BID PO Last administered on 02/24/20 08:46; Start 02/20/20 at 10:00 Benztropine Mesylate (Cogentin) 0.5 mg BID PO Last administered on 02/24/20 08:46; Start 02/20/20 at 09:45 Multivitamins (Thera M Plus) 1 tab DAILY PO Last administered on 02/21/20 09:41; Start 02/20/20 at 10:00; Stop 02/22/20 at 08:28; Status DC Thiamine Mononitrate (Vitamin B-1) 100 mg DAILY PO Last administered on 02/21/20at 09:40; Start 02/20/20 at 10:00; Stop 02/22/20 at 08:28; Status DC Gabapentin (Neurontin) 300 mg TID PO Last administered on 02/24/20at 08:46; Start 02/20/20 at 10:00 Influenza Virus Vaccine Quadrival (Afluria Quad 2019-20 (3yr Up) Syringe) 0.5 ml ONCE ONCE VAX IM Last administered on 02/20/20at 12:13; Start 02/20/20 at 11:30; Stop 02/20/20 at 11:34; Status DC Metoclopramide HCl (Reglan Vial) 10 mg Q6HRS IVP Last administered on 02/23/20at 06:28; Start 02/20/20 at 14:00; Stop 02/23/20 at 11:38; Status DC Hydromorphone HCl (Dilaudid) 0.2 mg 1X ONCE IVP Last administered on 02/20/20at 14:52; Start 02/20/20 at 14:45; Stop 02/20/20 at 14:47; Status DC Hydromorphone HCl (Dilaudid) 0.4 mg PRN Q4HRS PRN IVP PAIN Last administered on 02/23/20at 14:11; Start 02/20/20 at 21:30 Multivitamins 10 ml/Thiamine HCl 100 mg/Folic Acid 1 mg/Sodium Chloride 1,011.2 ml @ 1,000.088 mls/hr 1X ONCE IV Last administered on 02/20/20at 22:03; Start 02/20/20 at 21:45; Stop 02/20/20 at 22:45; Status DC Lorazepam (Ativan Inj) 1 mg PRN Q1HR PRN IV For CIWA 8-14 Last administered on 02/21/20at 06:16; Start 02/21/20 at 04:45; Stop 02/21/20 at 13:48; Status DC Multivitamins 10 ml/Thiamine HCl 100 mg/Folic Acid 1 mg/Sodium Chloride 1,011.2 ml @ 100 mls/ hr DAILY IV Last administered on 02/24/20at 08:46; Start 02/22/20 at 09:00; Stop 02/26/20 at 19:07 Multivitamins (Thera M Plus) 1 tab DAILY PO ; Start 02/26/20 at 09:00; Status UNV Folic Acid (Folic Acid) 1 mg DAILY PO ; Start 02/26/20 at 09:00; Status UNV Thiamine Mononitrate (Vitamin B-1) 100 mg DAILY PO ; Start 02/26/20 at 09:00; Status UNV Lorazepam (Ativan) 4 mg PRN Q1HR PRN PO For CIWA 8-14 Last administered on 02/22/20at 02:43; Start 02/21/20 at 13:45 Lorazepam (Ativan) 8 mg PRN Q1HR PRN PO For CIWA 15 or greater; Start 02/21/20 at 13:45 Lorazepam (Ativan Inj) 2 mg PRN Q1HR PRN IV For CIWA 8-14 Last administered on 02/24/20at 09:47; Start 02/21/20 at 13:45 Lorazepam (Ativan Inj) 4 mg PRN Q1HR PRN IV For CIWA 15 or greater; Start 02/21/20 at 13:45 Haloperidol Lactate (Haldol Inj) 5 mg PRN Q4HRS PRN IVP Halluc inatns,Confusn,Delirium; Start 02/21/20 at 13:45; Status UNV Diphenhydramine HCl (Benadryl) 25 mg PRN Q15MIN PRN IVP EPS symptoms 2'Haldol admin; Start 02/21/20 at 13:45 Lorazepam (Ativan Inj) 2 mg PRN Q15MIN PRN IV SEE COMMENTS; Start 02/21/20 at 13:45; Status UNV Lorazepam (Ativan Inj) 4 mg PRN Q15MIN PRN IV SEE COMMENTS; Start 02/21/20 at 13:45; Status UNV Folic Acid (Folic Acid) 1 mg DAILY PO ; Start 02/27/20 at 09:00 Multivitamins (Thera M Plus) 1 tab DAILY PO ; Start 02/27/20 at 09:00 Thiamine Mononitrate (Vitamin B-1) 100 mg DAILY PO ; Start 02/27/20 at 09:00 Ringer's Solution 1,000 ml @ 100 mls/hr Q10H IV Last administered on 02/24/20at 04:04; Start 02/22/20 at 10:15 Propofol 40 ml @ As Directed STK-MED ONCE IV ; Start 02/22/20 at 10:41; Stop 02/22/20 at 10:41; Status DC Lidocaine HCl (Lidocaine Pf 2% Vial) 5 ml STK-MED ONCE .ROUTE ; Start 02/22/20 at 10:41; Stop 02/22/20 at 10:41; Status DC Pantoprazole Sodium (Protonix) 40 mg DAILYAC PO Last administered on 02/24/20at 08:46; Start 02/24/20 at 07:30 Propranolol HCl (Inderal) 10 mg BID PO Last administered on 02/24/20at 08:46; Start 02/23/20 at 14:00 Active Scripts Active Buspirone Hcl 5 Mg Tablet 5 Mg PO PRN TID PRN 30 Days Dilaudid (Hydromorphone Hcl) 2 Mg Tablet 2 Mg PO PRN Q8HRS PRN 6 Days Benztropine Mesylate 0.5 Mg Tablet 1 Tab PO BID 30 Days Geodon (Ziprasidone Hcl) 20 Mg Capsule 20 Mg PO BID 30 Days Trazodone Hcl 100 Mg Tablet 100 Mg PO QHS 30 Days Catapres (Clonidine Hcl) 0.1 Mg Tablet 0.1 Mg PO PRN Q1HR PRN 7 Days Can take for withdrawal symptoms Xifaxan (Rifaximin) 550 Mg Tablet 550 Mg PO Q12HR 30 Days Lactulose 20 Gm/30 Ml Solution 20 Gm PO TID 30 Days Prazosin Hcl 1 Mg Capsule 1 Cap PO QHS 30 Days Pantoprazole Sodium (Pantoprazole Sodium) 40 Mg Tablet.dr 40 Mg PO DAILYAC Multivitamins (Multivitamin) 1 Each Tablet 1 Tab PO DAILY Folic Acid 1 Mg Tablet 1 Tab PO DAILY Vitamin B-1 (Thiamine Hcl) 100 Mg Tablet 100 Mg PO DAILY 30 Days Feosol (Ferrous Sulfate) 325 Mg Tablet 325 Mg PO DAILYWBKFT 30 Days Reported Zyprexa (Olanzapine) 5 Mg Tablet 1 Tab PO QHS Hydroxyzine Hcl 25 Mg Tablet 3 Tab PO TID Vitals/I & O Vital Sign - Last 24 Hours 02/23/20 02/23/20 02/23/20 02/23/20 11:19 14:41 15:00 16:33 Temp 98.0 98.3 98.0 98.3 Pulse 119 111 111 Resp 18 16 B/P (MAP) 146/97 (113) 119/82 (94) 119/82 Pulse Ox 93 98 98 O2 Delivery Room Air Room Air Room Air O2 Flow Rate 2.0 02/23/20 02/23/20 02/23/20 02/23/20 18:22 19:00 19:37 20:00 Temp 98.1 98.1 Pulse 82 Resp 20 B/P (MAP) 139/74 (95) Pulse Ox 96 O2 Delivery Room Air Room Air Room Air Room Air 02/23/20 02/23/20 02/23/20 02/24/20 20:39 20:39 22:33 03:00 Temp 98.1 98.1 Pulse 82 82 88 Resp 18 B/P (MAP) 139/74 139/74 122/76 (91) Pulse Ox 94 O2 Delivery Room Air Room Air 02/24/20 02/24/20 02/24/20 02/24/20 04:47 05:55 07:00 08:46 Temp 97.8 97.8 Pulse 82 82 Resp 18 B/P (MAP) 147/85 (105) 147/85 Pulse Ox 90 O2 Delivery Room Air Room Air Room Air Intake and Output 02/23/20 02/23/20 02/24/20 15:00 23:00 07:00 Intake Total 1000 ml Output Total 0 ml Balance 0 ml 1000 ml Hemodynamically unstable?: No Is patient in severe pain?: No Is NPO status required?: No KORY CRAIG MD Feb 24, 2020 10:20
[2020-02-24 11:00] VITALS: BP 131/85
[2020-02-24 12:06] LABS: BASO % 1 % (0-3); EOS # 0.1 x10^3/uL (0.0-0.7); EOS % 3 % (0-3); HEMATOCRIT 35.8 % (39.0-53.0); HEMOGLOBIN 11.7 g/dL (13.0-17.5); LYMPH # 0.9 x10^3/uL (1.0-4.8); LYMPH % 26 % (24-48); MEAN CORPUSCULAR HEMOGLOBIN 32 pg (25-35); MEAN CORPUSCULAR HGB CONC 33 g/dL (31-37); MEAN CORPUSCULAR VOLUME 97 fL (79-100); MONO # 0.4 x10^3/uL (0.0-1.1); MONO % 13 % (0-9); NEUT % 58 % (31-73); PLATELET COUNT 45 x10^3/uL (140-400); RED BLOOD COUNT 3.69 x10^6/uL (4.30-5.70); RED CELL DISTRIBUTION WIDTH 18.6 % (11.5-14.5); WHITE BLOOD COUNT 3.4 x10^3/uL (4.0-11.0)
[2020-02-24] MEDS: ONDANSETRON PF 4 MG/2 ML VIAL. IV PRN (12:25)
[2020-02-24 15:00] VITALS: BP 106/61
[2020-02-24 19:42] VITALS: BP 137/51
[2020-02-24] MEDS: OLANZapine 5 MG TABLET PO SCH (20:50)
[2020-02-24] MEDS: PRAZOSIN 1 MG CAPSULE. PO SCH (20:51)
[2020-02-24] MEDS: traZODone 100 MG TABLET. PO SCH (20:55)
[2020-02-24 23:06] VITALS: BP 119/72
[2020-02-25] MEDS: IV RINGERS,LACTATED 1000ML 1,000 ML IV SCH ×3 (04:26→18:15)
[2020-02-25 07:25] VITALS: BP 120/70
[2020-02-25] MEDS: rifAXIMin 550 MG TABLET PO SCH ×2 (08:19→20:09)
[2020-02-25] MEDS: ZIPRASIDONE 20 MG CAPSULE PO SCH ×2 (08:19→20:09)
[2020-02-25] MEDS: LACTULOSE 20 GM/30 ML SOLUTION. PO SCH ×3 (08:19→20:16)
[2020-02-25] MEDS: THIAMINE 100 MG TABLET. PO SCH (08:19)
[2020-02-25] MEDS: MULTIVITAMIN with MINERAL TABLET. PO SCH (08:20)
[2020-02-25] MEDS: PANTOPRAZOLE 40 MG TABLET.DR. PO SCH (08:20)
[2020-02-25] MEDS: FERROUS SULFATE 325 MG TABLET. PO SCH (08:20)
[2020-02-25] MEDS: GABAPENTIN 300 MG CAPSULE. PO SCH ×3 (08:20→20:11)
[2020-02-25] MEDS: BENZTROPINE MESYLATE 1 MG TABLET. PO SCH ×2 (08:20→20:11)
[2020-02-25] MEDS: FOLIC ACID 1 MG TABLET. PO SCH (08:20)
[2020-02-25] MEDS: PROPRANOLOL 10 MG TABLET. PO SCH ×2 (08:20→20:10)
--- NOTE | 2020-02-25 09:52 | PDOC ---
PROGRESS NOTES History of Present Illness History of Present Illness VTE Prophylaxis Ordered VTE Prophylaxis Devices: No VTE Pharmacological Prophylaxi: Contraindicated Assessment/Plan Assessment/Plan A/P: Hematemeis - Hb stable. GI consulted. acute variceal bleed EtOH abuse - with acute intoxication on admission. GANESHWA scale, banana bag. Will add gabapentin based on new clinical trial data to help him avoid relapse Acute alcohol intoxication - will cont MONA, banana bag Major depression - needs outpatient treatment Right clavicle fracture - sling and oral diluadid Thrombocytopenia - likely related to liver disease, will minimize his exposure to 1st generation anti-psychotics based on this. 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 Will cont his home medications which have helped reduce his hospitalizations Smoker - counseled on cessation Alpha-1 antitrypsin deficiency - MZ mutation - increases his risk of liver disease given his ETOH abuse DJD - pain control Transaminitis - fits ETOH pattern. trend Hepatic cirrhosis and findings of portal hypertension , C/W END ORGAN INJURY. INR 1.5 and Bilirubin 2.6 Esophageal varices - numerous, :Varices with stigmata of recent bleeding; all 3 banded. 02/21 Gallstone lodged at the gallbladder neck, no gallbladder wall thickening - seen by general surgery previously, no indication for surgery FEN - ice chips PPX - Protonix, SCDs FULL CODE Dispo - med tele for acute UGIB ice chips, IV Reglan, IV PPI. 02/20 abd pain slow to improve Indication: recurrent hematemesis 02/21 Meds: per anesthesia Findings: E--grade III varices mid/distal esophagus (larger after rehydration?). 3 with white thrombus at tips. All 3 banded. Otherwise normal. G--Retained liquid, grossly broth. Hard to see his portal hypertensive gastropathy seconday to this. No other lesions. D--Normal to second portion. Meghann. well. IMP: Varices with stigmata of recent bleeding; all 3 banded. REC: Clears today. Begin advance diet in AM if no problems. If major rebleeding-->TIPS. Continue PPI. MEENA HASTINGS MD Feb 22, 2020 11:05 02/24 agitated, some hallucinations today, now on toprol bid // eating without issue, no bleeding, has been hallucinating Vitals Vitals Vital Signs Date Time Temp Pulse Resp B/P (MAP) Pulse Ox O2 Delivery O2 Flow Rate FiO2 02/25/20 08:20 77 120/70 02/25/20 07:25 98.2 20 96 Room Air 98.2 02/24/20 08:20 2.0 Physical Exam General: Alert, Oriented X3, Cooperative, No acute distress, mild distress Heart: Regular rate, Normal S1, Normal S2, No murmurs Lungs: Clear Abdomen: Normal bowel sounds, Soft, No tenderness, No hepatosplenomegaly, No masses Extremities: No clubbing, No cyanosis, No edema, Normal pulses, Other (Tenderness on right clavicle) Skin: No rashes, No breakdown, No significant lesion Labs LABS Laboratory Tests Test 02/24/20 11:55 White Blood Count 3.4 x10^3/uL (4.0-11.0) Red Blood Count 3.69 x10^6/uL (4.30-5.70) Hemoglobin 11.7 g/dL (13.0-17.5) Hematocrit 35.8 % (39.0-53.0) Mean Corpuscular Volume 97 fL (79-100) Mean Corpuscular Hemoglobin 32 pg (25-35) Mean Corpuscular Hemoglobin Concent 33 g/dL (31-37) Red Cell Distribution Width 18.6 % (11.5-14.5) Platelet Count 45 x10^3/uL (140-400) Neutrophils (%) (Auto) 58 % (31-73) Lymphocytes (%) (Auto) 26 % (24-48) Monocytes (%) (Auto) 13 % (0-9) Eosinophils (%) (Auto) 3 % (0-3) Basophils (%) (Auto) 1 % (0-3) Neutrophils # (Auto) 2.0 x10^3/uL (1.8-7.7) Lymphocytes # (Auto) 0.9 x10^3/uL (1.0-4.8) Monocytes # (Auto) 0.4 x10^3/uL (0.0-1.1) Eosinophils # (Auto) 0.1 x10^3/uL (0.0-0.7) Basophils # (Auto) 0.0 x10^3/uL (0.0-0.2) Comment Review of Relevant I have reviewed the following items mc (where applicable) has been applied. Labs Laboratory Tests Test 02/24/20 11:55 White Blood Count 3.4 x10^3/uL (4.0-11.0) Red Blood Count 3.69 x10^6/uL (4.30-5.70) Hemoglobin 11.7 g/dL (13.0-17.5) Hematocrit 35.8 % (39.0-53.0) Mean Corpuscular Volume 97 fL (79-100) Mean Corpuscular Hemoglobin 32 pg (25-35) Mean Corpuscular Hemoglobin Concent 33 g/dL (31-37) Red Cell Distribution Width 18.6 % (11.5-14.5) Platelet Count 45 x10^3/uL (140-400) Neutrophils (%) (Auto) 58 % (31-73) Lymphocytes (%) (Auto) 26 % (24-48) Monocytes (%) (Auto) 13 % (0-9) Eosinophils (%) (Auto) 3 % (0-3) Basophils (%) (Auto) 1 % (0-3) Neutrophils # (Auto) 2.0 x10^3/uL (1.8-7.7) Lymphocytes # (Auto) 0.9 x10^3/uL (1.0-4.8) Monocytes # (Auto) 0.4 x10^3/uL (0.0-1.1) Eosinophils # (Auto) 0.1 x10^3/uL (0.0-0.7) Basophils # (Auto) 0.0 x10^3/uL (0.0-0.2) Laboratory Tests Test 02/24/20 11:55 White Blood Count 3.4 x10^3/uL (4.0-11.0) Red Blood Count 3.69 x10^6/uL (4.30-5.70) Hemoglobin 11.7 g/dL (13.0-17.5) Hematocrit 35.8 % (39.0-53.0) Mean Corpuscular Volume 97 fL (79-100) Mean Corpuscular Hemoglobin 32 pg (25-35) Mean Corpuscular Hemoglobin Concent 33 g/dL (31-37) Red Cell Distribution Width 18.6 % (11.5-14.5) Platelet Count 45 x10^3/uL (140-400) Neutrophils (%) (Auto) 58 % (31-73) Lymphocytes (%) (Auto) 26 % (24-48) Monocytes (%) (Auto) 13 % (0-9) Eosinophils (%) (Auto) 3 % (0-3) Basophils (%) (Auto) 1 % (0-3) Neutrophils # (Auto) 2.0 x10^3/uL (1.8-7.7) Lymphocytes # (Auto) 0.9 x10^3/uL (1.0-4.8) Monocytes # (Auto) 0.4 x10^3/uL (0.0-1.1) Eosinophils # (Auto) 0.1 x10^3/uL (0.0-0.7) Basophils # (Auto) 0.0 x10^3/uL (0.0-0.2) Medications Current Medications Pantoprazole Sodium (PROTONIX VIAL for IV PUSH) 80 mg 1X ONCE IVP Last administered on 02/20/20at 07:27; Start 02/20/20 at 07:15; Stop 02/20/20 at 07:16; Status DC Octreotide Acetate (SandoSTATIN) 50 mcg 1X ONCE IV Last administered on 02/20/20at 07:29; Start 02/20/20 at 07:15; Stop 02/20/20 at 07:16; Status DC Metoclopramide HCl (Reglan Vial) 10 mg 1X ONCE IVP Last administered on 02/20/20at 07:27; Start 02/20/20 at 07:15; Stop 02/20/20 at 07:16; Status DC Haloperidol Lactate (Haldol Inj) 5 mg STK-MED ONCE .ROUTE ; Start 02/20/20 at 08:08; Stop 02/20/20 at 08:09; Status DC Haloperidol Lactate (Haldol Inj) 2.5 mg 1X ONCE IVP Last administered on 02/20/20at 08:14; Start 02/20/20 at 08:15; Stop 02/20/20 at 08:16; Status DC Ondansetron HCl (Zofran) 4 mg PRN Q8HRS PRN IV NAUSEA/VOMITING; Start 02/20/20 at 08:30; Stop 02/20/20 at 09:15; Status DC Lorazepam (Ativan Inj) 1 mg 1X ONCE IVP Last administered on 02/20/20at 09:00; Start 02/20/20 at 09:00; Stop 02/20/20 at 09:03; Status DC Ondansetron HCl (Zofran) 4 mg PRN Q4HRS PRN IV NAUSEA/VOMITING Last administer ed on 02/24/20at 12:25; Start 02/20/20 at 09:15 Magnesium Sulfate 100 ml @ 25 mls/hr 1X ONCE IV Last administered on 02/20/20at 10:40; Start 02/20/20 at 10:00; Stop 02/20/20 at 13:59; Status DC Pantoprazole Sodium (PROTONIX VIAL for IV PUSH) 40 mg BIDAC IVP Last administered on 02/23/20at 08:37; Start 02/20/20 at 09:30; Stop 02/23/20 at 11:38; Status DC Lorazepam (Ativan Inj) 1 mg PRN Q4HRS PRN IV For CIWA 8-14 Last administered on 02/21/20at 02:27; Start 02/20/20 at 09:15; Stop 02/21/20 at 04:47; Status DC Haloperidol Lactate (Haldol Inj) 5 mg PRN Q4HRS PRN IVP Hallucinatns,Confusn,Delirium; Start 02/20/20 at 09:15 Buspirone HCl (Buspar) 5 mg PRN TID PRN PO Anxiety; Start 02/20/20 at 09:15 Clonidine HCl (Catapres) 0.1 mg PRN Q1HR PRN PO SBP > 180 or DBP > 100, MRX3; Start 02/20/20 at 09:15 Ferrous Sulfate (Feosol) 325 mg DAILYWBKFT PO Last administered on 02/25/20at 08:20; Start 02/20/20 at 12:00 Folic Acid (Folic Acid) 1 mg DAILY PO Last administered on 02/21/20at 09:40; Start 02/20/20 at 10:00; Stop 02/22/20 at 08:27; Status DC Hydromorphone HCl (Dilaudid) 2 mg PRN Q8HRS PRN PO MODERTE TO SEVERE PAIN Last administered on 02/24/20 23:09; Start 02/20/20 at 09:15 Hydroxyzine HCl (Atarax) 75 mg TID PO Last administered on 02/24/20at 20:50; Start 02/20/20 at 10:00 Lactulose (Lactulose) 20 gm TID PO Last administered on 02/25/20 08:19; Start 02/20/20 at 10:00 Olanzapine (ZyPREXA) 5 mg QHS PO Last administered on 02/24/20 20:50; Start 02/20/20 at 21:00 Pantoprazole Sodium (Protonix) 40 mg DAILYAC PO ; Start 02/21/20 at 07:30; Status UNV Prazosin HCl (Minipress) 1 mg QHS PO Last administered on 02/24/20at 20:51; Start 02/20/20 at 21:00 Rifaximin (Xifaxan) 550 mg Q12HR PO Last administered on 02/25/20 08:19; Start 02/20/20 at 10:00 Trazodone HCl (Desyrel) 100 mg QHS PO Last administered on 02/23/20at 20:39; Start 02/20/20 at 21:00 Ziprasidone (Geodon) 20 mg BID PO Last administered on 02/25/20 08:19; Start 02/20/20 at 10:00 Benztropine Mesylate (Cogentin) 0.5 mg BID PO Last administered on 02/25/20 08:20; Start 02/20/20 at 09:45 Multivitamins (Thera M Plus) 1 tab DAILY PO Last administered on 02/21/20 09:41; Start 02/20/20 at 10:00; Stop 02/22/20 at 08:28; Status DC Thiamine Mononitrate (Vitamin B-1) 100 mg DAILY PO Last administered on 02/21/20 09:40; Start 02/20/20 at 10:00; Stop 02/22/20 at 08:28; Status DC Gabapentin (Neurontin) 300 mg TID PO Last administered on 02/25/20 08:20; Start 02/20/20 at 10:00 Influenza Virus Vaccine Quadrival (Afluria Quad 2019-20 (3yr Up) Syringe) 0.5 ml ONCE ONCE VAX IM Last administered on 02/20/20at 12:13; Start 02/20/20 at 11:30; Stop 02/20/20 at 11:34; Status DC Metoclopramide HCl (Reglan Vial) 10 mg Q6HRS IVP Last administered on 02/23/20at 06:28; Start 02/20/20 at 14:00; Stop 02/23/20 at 11:38; Status DC Hydromorphone HCl (Dilaudid) 0.2 mg 1X ONCE IVP Last administered on 02/20/20at 14:52; Start 02/20/20 at 14:45; Stop 02/20/20 at 14:47; Status DC Hydromorphone HCl (Dilaudid) 0.4 mg PRN Q4HRS PRN IVP PAIN Last administered on 02/23/20at 14:11; Start 02/20/20 at 21:30 Multivitamins 10 ml/Thiamine HCl 100 mg/Folic Acid 1 mg/Sodium Chloride 1,011.2 ml @ 1,000.088 mls/hr 1X ONCE IV Last administered on 02/20/20at 22:03; Start 02/20/20 at 21:45; Stop 02/20/20 at 22:45; Status DC Lorazepam (Ativan Inj) 1 mg PRN Q1HR PRN IV For CIWA 8-14 Last administered on 02/21/20at 06:16; Start 02/21/20 at 04:45; Stop 02/21/20 at 13:48; Status DC Multivitamins 10 ml/Thiamine HCl 100 mg/Folic Acid 1 mg/Sodium Chloride 1,011.2 ml @ 100 mls/ hr DAILY IV Last administered on 02/24/20at 08:46; Start 02/22/20 at 09:00; Stop 02/25/20 at 08:59; Status DC Multivitamins (Thera M Plus) 1 tab DAILY PO ; Start 02/26/20 at 09:00; Status UNV Folic Acid (Folic Acid) 1 mg DAILY PO ; Start 02/26/20 at 09:00; Status UNV Thiamine Mononitrate (Vitamin B-1) 100 mg DAILY PO ; Start 02/26/20 at 09:00; Status UNV Lorazepam (Ativan) 4 mg PRN Q1HR PRN PO For CIWA 8-14 Last administered on 02/22/20at 02:43; Start 02/21/20 at 13:45 Lorazepam (Ativan) 8 mg PRN Q1HR PRN PO For CIWA 15 or greater; Start 02/21/20 at 13:45 Lorazepam (Ativan Inj) 2 mg PRN Q1HR PRN IV For CIWA 8-14 Last administered on 02/25/20at 08:21; Start 02/21/20 at 13:45 Lorazepam (Ativan Inj) 4 mg PRN Q1HR PRN IV For CIWA 15 or greater; Start 02/21/20 at 13:45 Haloperidol Lactate (Haldol Inj) 5 mg PRN Q4HRS PRN IVP Hallucinatns,Confusn,Delirium; Start 02/21/20 at 13:45; Status UNV Diphenhydramine HCl (Benadryl) 25 mg PRN Q15MIN PRN IVP EPS symptoms 2'Haldol admin; Start 02/21/20 at 13:45 Lorazepam (Ativan Inj) 2 mg PRN Q15MIN PRN IV SEE COMMENTS; Start 02/21/20 at 13:45; Status UNV Lorazepam (Ativan Inj) 4 mg PRN Q15MIN PRN IV SEE COMMENTS; Start 02/21/20 at 13:45; Status UNV Folic Acid (Folic Acid) 1 mg DAILY PO Last administered on 02/25/20at 08:20; Start 02/25/20 at 09:00 Multivitamins (Thera M Plus) 1 tab DAILY PO Last administered on 02/25/20at 08:20; Start 02/25/20 at 09:00 Thiamine Mononitrate (Vitamin B-1) 100 mg DAILY PO Last administered on 02/25/20at 08:19; Start 02/25/20 at 09:00 Ringer's Solution 1,000 ml @ 100 mls/hr Q10H IV Last administered on 02/25/20at 04:26; Start 02/22/20 at 10:15 Propofol 40 ml @ As Directed STK-MED ONCE IV ; Start 02/22/20 at 10:41; Stop 02/22/20 at 10:41; Status DC Lidocaine HCl (Lidocaine Pf 2% Vial) 5 ml STK-MED ONCE .ROUTE ; Start 02/22/20 at 10:41; Stop 02/22/20 at 10:41; Status DC Pantoprazole Sodium (Protonix) 40 mg DAILYAC PO Last administered on 02/25/20at 08:20; Start 02/24/20 at 07:30 Propranolol HCl (Inderal) 10 mg BID PO Last administered on 02/25/20at 08:20; Start 02/23/20 at 14:00 Active Scripts Active Buspirone Hcl 5 Mg Tablet 5 Mg PO PRN TID PRN 30 Days Dilaudid (Hydromorphone Hcl) 2 Mg Tablet 2 Mg PO PRN Q8HRS PRN 6 Days Benztropine Mesylate 0.5 Mg Tablet 1 Tab PO BID 30 Days Geodon (Ziprasidone Hcl) 20 Mg Capsule 20 Mg PO BID 30 Days Trazodone Hcl 100 Mg Tablet 100 Mg PO QHS 30 Days Catapres (Clonidine Hcl) 0.1 Mg Tablet 0.1 Mg PO PRN Q1HR PRN 7 Days Can take for withdrawal symptoms Xifaxan (Rifaximin) 550 Mg Tablet 550 Mg PO Q12HR 30 Days Lactulose 20 Gm/30 Ml Solution 20 Gm PO TID 30 Days Prazosin Hcl 1 Mg Capsule 1 Cap PO QHS 30 Days Pantoprazole Sodium (Pantoprazole Sodium) 40 Mg Tablet.dr 40 Mg PO DAILYAC Multivitamins (Multivitamin) 1 Each Tablet 1 Tab PO DAILY Folic Acid 1 Mg Tablet 1 Tab PO DAILY Vitamin B-1 (Thiamine Hcl) 100 Mg Tablet 100 Mg PO DAILY 30 Days Feosol (Ferrous Sulfate) 325 Mg Tablet 325 Mg PO DAILYWBKFT 30 Days Reported Zyprexa (Olanzapine) 5 Mg Tablet 1 Tab PO QHS Hydroxyzine Hcl 25 Mg Tablet 3 Tab PO TID Vitals/I & O Vital Sign - Last 24 Hours 02/24/20 02/24/20 02/24/20 02/24/20 11:00 14:57 15:00 16:00 Temp 98.3 97.0 98.3 97.0 Pulse 76 76 Resp 20 16 20 16 B/P (MAP) 131/85 (100) 106/61 (76) Pulse Ox 91 92 O2 Delivery Room Air Room Air Room Air Room Air 3/2602/24/20 02/24/20 02/24/20 19:42 19:45 20:50 20:51 Temp 98.6 98.6 Pulse 75 75 75 Resp 16 B/P (MAP) 137/51 (79) 137/51 137/51 Pulse Ox 93 O2 Delivery Room Air Room Air 02/24/20 02/24/20 02/25/20 02/25/20 23:06 23:09 00:01 03:31 Temp 98.1 98.1 Pulse 77 Resp 16 18 B/P (MAP) 119/72 (88) Pulse Ox 93 O2 Delivery Room Air Room Air Room Air Room Air 02/25/20 02/25/20 07:25 08:20 Temp 98.2 98.2 Pulse 77 77 Resp 20 B/P (MAP) 120/70 (87) 120/70 Pulse Ox 96 O2 Delivery Room Air Intake and Output 02/24/20 02/24/20 02/25/20 15:00 23:00 07:00 Intake Total 750 ml 100 ml 480 ml Balance 750 ml 100 ml 480 ml Hemodynamically unstable?: No Is patient in severe pain?: No Is NPO status required?: No KORY CRAIG MD Feb 25, 2020 09:52
[2020-02-25] MEDS: HYDROmorphone 2 MG TABLET PO PRN ×2 (10:24→20:10)
[2020-02-25] MEDS: hydrOXYzine 25 MG TABLET PO SCH ×3 (10:24→20:12)
--- NOTE | 2020-02-25 10:40 | PDOC ---
Subjective: Subjective: Says hasn't been eating in case he needs a scope - doesn't remember having an EGD earlier this week. Objective: Objective: Per nurse - eating without issue, no bleeding, has been hallucinating. Vital Signs: Vital Signs Date Time Temp Pulse Resp B/P (MAP) Pulse Ox O2 Delivery O2 Flow Rate FiO2 02/25/20 10:24 16 Room Air 02/25/20 08:20 77 120/70 02/25/20 07:25 98.2 96 98.2 02/24/20 08:20 2.0 Labs: Laboratory Tests Test 02/24/20 11:55 White Blood Count 3.4 x10^3/uL Red Blood Count 3.69 x10^6/uL Hemoglobin 11.7 g/dL Hematocrit 35.8 % Mean Corpuscular Volume 97 fL Mean Corpuscular Hemoglobin 32 pg Mean Corpuscular Hemoglobin Concent 33 g/dL Red Cell Distribution Width 18.6 % Platelet Count 45 x10^3/uL Neutrophils (%) (Auto) 58 % Lymphocytes (%) (Auto) 26 % Monocytes (%) (Auto) 13 % Eosinophils (%) (Auto) 3 % Basophils (%) (Auto) 1 % Neutrophils # (Auto) 2.0 x10^3/uL Lymphocytes # (Auto) 0.9 x10^3/uL Monocytes # (Auto) 0.4 x10^3/uL Eosinophils # (Auto) 0.1 x10^3/uL Basophils # (Auto) 0.0 x10^3/uL PE: GEN: NAD LUNGS: clear anteriorly HEART: RRR ABD: soft, tender per usual NEURO/PSYCH: confused A/P: Cirrhosis, grade III varices s/p banding 02/21 Chronic pain, psych issues -- Stable GI-carver, continue same. Hemodynamically unstable?: No Is patient in severe pain?: No Is NPO status required?: No JANET STEWART Feb 25, 2020 10:40
[2020-02-25 11:26] VITALS: BP 122/80
--- NOTE | 2020-02-25 14:51 | NUR ---
SW following for discharge planning. Reviewed chart. Pt seen by PAT team and resources given. No SW needs identified at this time.
[2020-02-25 15:19] VITALS: BP 126/76
[2020-02-25 19:15] VITALS: BP 124/80
[2020-02-25] MEDS: PRAZOSIN 1 MG CAPSULE. PO SCH (20:10)
[2020-02-25] MEDS: OLANZapine 5 MG TABLET PO SCH (20:11)
[2020-02-25] MEDS: traZODone 100 MG TABLET. PO SCH (20:11)
[2020-02-25] MEDS: LORazepam 1 MG TABLET PO PRN (20:11)
[2020-02-26 03:20] VITALS: BP 130/74
[2020-02-26] MEDS: IV RINGERS,LACTATED 1000ML 1,000 ML IV SCH ×2 (05:34→14:15)
[2020-02-26] MEDS: LORazepam 1 MG TABLET PO PRN ×3 (05:42→21:35)
[2020-02-26 07:07] LABS: BASO % 1 % (0-3); EOS # 0.1 x10^3/uL (0.0-0.7); EOS % 4 % (0-3); HEMATOCRIT 37.1 % (39.0-53.0); HEMOGLOBIN 12.2 g/dL (13.0-17.5); LYMPH # 0.8 x10^3/uL (1.0-4.8); LYMPH % 27 % (24-48); MEAN CORPUSCULAR HEMOGLOBIN 32 pg (25-35); MEAN CORPUSCULAR HGB CONC 33 g/dL (31-37); MEAN CORPUSCULAR VOLUME 97 fL (79-100); MONO # 0.3 x10^3/uL (0.0-1.1); MONO % 10 % (0-9); NEUT # 1.7 x10^3/uL (1.8-7.7); NEUT % 59 % (31-73); PLATELET COUNT 51 x10^3/uL (140-400); RED BLOOD COUNT 3.81 x10^6/uL (4.30-5.70); RED CELL DISTRIBUTION WIDTH 18.7 % (11.5-14.5)
[2020-02-26 07:20] VITALS: BP 125/56
[2020-02-26] MEDS: LACTULOSE 20 GM/30 ML SOLUTION. PO SCH ×3 (08:51→21:23)
[2020-02-26] MEDS: ZIPRASIDONE 20 MG CAPSULE PO SCH ×2 (08:52→21:22)
[2020-02-26] MEDS: PROPRANOLOL 10 MG TABLET. PO SCH ×2 (08:52→21:25)
[2020-02-26] MEDS: GABAPENTIN 300 MG CAPSULE. PO SCH ×3 (08:53→21:22)
[2020-02-26] MEDS: FOLIC ACID 1 MG TABLET. PO SCH (08:53)
[2020-02-26] MEDS: PANTOPRAZOLE 40 MG TABLET.DR. PO SCH (08:53)
[2020-02-26] MEDS: THIAMINE 100 MG TABLET. PO SCH (08:53)
[2020-02-26] MEDS: rifAXIMin 550 MG TABLET PO SCH ×2 (08:54→21:22)
[2020-02-26] MEDS: HYDROmorphone 2 MG TABLET PO PRN ×2 (08:54→19:46)
[2020-02-26] MEDS: BENZTROPINE MESYLATE 1 MG TABLET. PO SCH ×2 (08:54→21:23)
[2020-02-26] MEDS: MULTIVITAMIN with MINERAL TABLET. PO SCH (08:57)
[2020-02-26] MEDS: FERROUS SULFATE 325 MG TABLET. PO SCH (08:58)
[2020-02-26] MEDS ORDERED: FOLIC ACID 1 MG TABLET. PO SCH (09:00)
[2020-02-26] MEDS ORDERED: THIAMINE 100 MG TABLET. PO SCH (09:00)
[2020-02-26] MEDS ORDERED: MULTIVITAMIN with MINERAL TABLET. PO SCH (09:00)
--- NOTE | 2020-02-26 11:05 | PDOC ---
PROGRESS NOTES History of Present Illness History of Present Illness VTE Prophylaxis Ordered VTE Prophylaxis Devices: No VTE Pharmacological Prophylaxi: Contraindicated Assessment/Plan Assessment/Plan A/P: Hematemeis - Hb stable. GI consulted. acute variceal bleed EtOH abuse - with acute intoxication on admission. GANESHWA scale, banana bag. Will add gabapentin based on new clinical trial data to help him avoid relapse Acute alcohol intoxication - will cont MONA, banana bag Major depression - needs outpatient treatment Right clavicle fracture - sling and oral diluadid Thrombocytopenia - likely related to liver disease, will minimize his exposure to 1st generation anti-psychotics based on this. 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 Will cont his home medications which have helped reduce his hospitalizations Smoker - counseled on cessation Alpha-1 antitrypsin deficiency - MZ mutation - increases his risk of liver disease given his ETOH abuse DJD - pain control Transaminitis - fits ETOH pattern. trend Hepatic cirrhosis and findings of portal hypertension , C/W END ORGAN INJURY. INR 1.5 and Bilirubin 2.6 Esophageal varices - numerous, :Varices with stigmata of recent bleeding; all 3 banded. 02/21 Gallstone lodged at the gallbladder neck, no gallbladder wall thickening - seen by general surgery previously, no indication for surgery FEN - ice chips PPX - Protonix, SCDs FULL CODE Dispo - med tele for acute UGIB ice chips, IV Reglan, IV PPI. 02/20 abd pain slow to improve Indication: recurrent hematemesis 02/21 Meds: per anesthesia Findings: E--grade III varices mid/distal esophagus (larger after rehydration?). 3 with white thrombus at tips. All 3 banded. Otherwise normal. G--Retained liquid, grossly broth. Hard to see his portal hypertensive gastropathy seconday to this. No other lesions. D--Normal to second portion. Meghann. well. IMP: Varices with stigmata of recent bleeding; all 3 banded. REC: Clears today. Begin advance diet in AM if no problems. If major rebleeding-->TIPS. Continue PPI. MEENA HASITNGS MD Feb 22, 2020 11:05 02/24 agitated, some hallucinations today, now on toprol bid // eating without issue, no bleeding, has been hallucinating 02/25 wandering halls, confused to details, appears to be unable to provide ADL'S Vitals Vitals Vital Signs Date Time Temp Pulse Resp B/P (MAP) Pulse Ox O2 Delivery O2 Flow Rate FiO2 02/26/20 08:54 94 Room Air 2.0 02/26/20 08:52 82 125/56 02/26/20 07:20 98.6 16 98.6 Physical Exam General: Alert, Cooperative, No acute distress, mild distress, Other (CONFUSED) Heart: Regular rate, Normal S1, Normal S2, No murmurs Lungs: Clear Abdomen: Normal bowel sounds, Soft, No tenderness, No hepatosplenomegaly, No masses Extremities: No clubbing, No cyanosis, No edema, Normal pulses, Other (Tenderness on right clavicle) Skin: No rashes, No breakdown, No significant lesion Labs LABS Laboratory Tests Test 02/26/20 06:25 White Blood Count 3.0 x10^3/uL (4.0-11.0) Red Blood Count 3.81 x10^6/uL (4.30-5.70) Hemoglobin 12.2 g/dL (13.0-17.5) Hematocrit 37.1 % (39.0-53.0) Mean Corpuscular Volume 97 fL (79-100) Mean Corpuscular Hemoglobin 32 pg (25-35) Mean Corpuscular Hemoglobin Concent 33 g/dL (31-37) Red Cell Distribution Width 18.7 % (11.5-14.5) Platelet Count 51 x10^3/uL (140-400) Neutrophils (%) (Auto) 59 % (31-73) Lymphocytes (%) (Auto) 27 % (24-48) Monocytes (%) (Auto) 10 % (0-9) Eosinophils (%) (Auto) 4 % (0-3) Basophils (%) (Auto) 1 % (0-3) Neutrophils # (Auto) 1.7 x10^3/uL (1.8-7.7) Lymphocytes # (Auto) 0.8 x10^3/uL (1.0-4.8) Monocytes # (Auto) 0.3 x10^3/uL (0.0-1.1) Eosinophils # (Auto) 0.1 x10^3/uL (0.0-0.7) Basophils # (Auto) 0.0 x10^3/uL (0.0-0.2) Comment Review of Relevant I have reviewed the following items mc (where applicable) has been applied. Labs Laboratory Tests Test 02/24/20 11:55 02/26/20 06:25 White Blood Count 3.4 x10^3/uL (4.0-11.0) 3.0 x10^3/uL (4.0-11.0) Red Blood Count 3.69 x10^6/uL (4.30-5.70) 3.81 x10^6/uL (4.30-5.70) Hemoglobin 11.7 g/dL (13.0-17.5) 12.2 g/dL (13.0-17.5) Hematocrit 35.8 % (39.0-53.0) 37.1 % (39.0-53.0) Mean Corpuscular Volume 97 fL (79-100) 97 fL (79-100) Mean Corpuscular Hemoglobin 32 pg (25-35) 32 pg (25-35) Mean Corpuscular Hemoglobin Concent 33 g/dL (31-37) 33 g/dL (31-37) Red Cell Distribution Width 18.6 % (11.5-14.5) 18.7 % (11.5-14.5) Platelet Count 45 x10^3/uL (140-400) 51 x10^3/uL (140-400) Neutrophils (%) (Auto) 58 % (31-73) 59 % (31-73) Lymphocytes (%) (Auto) 26 % (24-48) 27 % (24-48) Monocytes (%) (Auto) 13 % (0-9) 10 % (0-9) Eosinophils (%) (Auto) 3 % (0-3) 4 % (0-3) Basophils (%) (Auto) 1 % (0-3) 1 % (0-3) Neutrophils # (Auto) 2.0 x10^3/uL (1.8-7.7) 1.7 x10^3/uL (1.8-7.7) Lymphocytes # (Auto) 0.9 x10^3/uL (1.0-4.8) 0.8 x10^3/uL (1.0-4.8) Monocytes # (Auto) 0.4 x10^3/uL (0.0-1.1) 0.3 x10^3/uL (0.0-1.1) Eosinophils # (Auto) 0.1 x10^3/uL (0.0-0.7) 0.1 x10^3/uL (0.0-0.7) Basophils # (Auto) 0.0 x10^3/uL (0.0-0.2) 0.0 x10^3/uL (0.0-0.2) Laboratory Tests Test 02/26/20 06:25 White Blood Count 3.0 x10^3/uL (4.0-11.0) Red Blood Count 3.81 x10^6/uL (4.30-5.70) Hemoglobin 12.2 g/dL (13.0-17.5) Hematocrit 37.1 % (39.0-53.0) Mean Corpuscular Volume 97 fL (79-100) Mean Corpuscular Hemoglobin 32 pg (25-35) Mean Corpuscular Hemoglobin Concent 33 g/dL (31-37) Red Cell Distribution Width 18.7 % (11.5-14.5) Platelet Count 51 x10^3/uL (140-400) Neutrophils (%) (Auto) 59 % (31-73) Lymphocytes (%) (Auto) 27 % (24-48) Monocytes (%) (Auto) 10 % (0-9) Eosinophils (%) (Auto) 4 % (0-3) Basophils (%) (Auto) 1 % (0-3) Neutrophils # (Auto) 1.7 x10^3/uL (1.8-7.7) Lymphocytes # (Auto) 0.8 x10^3/uL (1.0-4.8) Monocytes # (Auto) 0.3 x10^3/uL (0.0-1.1) Eosinophils # (Auto) 0.1 x10^3/uL (0.0-0.7) Basophils # (Auto) 0.0 x10^3/uL (0.0-0.2) Medications Current Medications Pantoprazole Sodium (PROTONIX VIAL for IV PUSH) 80 mg 1X ONCE IVP Last administered on 02/20/20at 07:27; Start 02/20/20 at 07:15; Stop 02/20/20 at 07:16; Status DC Octreotide Acetate (SandoSTATIN) 50 mcg 1X ONCE IV Last administered on 01/30 07:29; Start 02/20/20 at 07:15; Stop 02/20/20 at 07:16; Status DC Metoclopramide HCl (Reglan Vial) 10 mg 1X ONCE IVP Last administered on 02/20/20at 07:27; Start 02/20/20 at 07:15; Stop 02/20/20 at 07:16; Status DC Haloperidol Lactate (Haldol Inj) 5 mg STK-MED ONCE .ROUTE ; Start 02/20/20 at 08:08; Stop 02/20/20 at 08:09; Status DC Haloperidol Lactate (Haldol Inj) 2.5 mg 1X ONCE IVP Last administered on 02/20/20at 08:14; Start 02/20/20 at 08:15; Stop 02/20/20 at 08:16; Status DC Ondansetron HCl (Zofran) 4 mg PRN Q8HRS PRN IV NAUSEA/VOMITING; Start 02/20/20 at 08:30; Stop 02/20/20 at 09:15; Status DC Lorazepam (Ativan Inj) 1 mg 1X ONCE IVP Last administered on 02/20/20at 09:00; Start 02/20/20 at 09:00; Stop 02/20/20 at 09:03; Status DC Ondansetron HCl (Zofran) 4 mg PRN Q4HRS PRN IV NAUSEA/VOMITING Last administered on 02/24/20at 12:25; Start 02/20/20 at 09:15 Magnesium Sulfate 100 ml @ 25 mls/hr 1X ONCE IV Last administered on 02/20/20at 10:40; Start 02/20/20 at 10:00; Stop 02/20/20 at 13:59; Status DC Pantoprazole Sodium (PROTONIX VIAL for IV PUSH) 40 mg BIDAC IVP Last administered on 02/23/20at 08:37; Start 02/20/20 at 09:30; Stop 02/23/20 at 11:38; Status DC Lorazepam (Ativan Inj) 1 mg PRN Q4HRS PRN IV For CIWA 8-14 Last administered on 02/21/20at 02:27; Start 02/20/20 at 09:15; Stop 02/21/20 at 04:47; Status DC Haloperidol Lactate (Haldol Inj) 5 mg PRN Q4HRS PRN IVP Hallucinatns,Confusn,Delirium; Start 02/20/20 at 09:15 Buspirone HCl (Buspar) 5 mg PRN TID PRN PO Anxiety; Start 02/20/20 at 09:15 Clonidine HCl (Catapres) 0.1 mg PRN Q1HR PRN PO SBP > 180 or DBP > 100, MRX3; Start 02/20/20 at 09:15 Ferrous Sulfate (Feosol) 325 mg DAILYWBKFT PO Last administered on 02/26/20 08:58; Start 02/20/20 at 12:00 Folic Acid (Folic Acid) 1 mg DAILY PO Last administered on 02/21/20at 09:40; Start 02/20/20 at 10:00; Stop 02/22/20 at 08:27; Status DC Hydromorphone HCl (Dilaudid) 2 mg PRN Q8HRS PRN PO MODERTE TO SEVERE PAIN Last administered on 02/26/20 08:54; Start 02/20/20 at 09:15 Hydroxyzine HCl (Atarax) 75 mg TID PO Last administered on 02/25/20at 20:12; Start 02/20/20 at 10:00 Lactulose (Lactulose) 20 gm TID PO Last administered on 02/26/20 08:51; Start 02/20/20 at 10:00 Olanzapine (ZyPREXA) 5 mg QHS PO Last administered on 02/25/20at 20:11; Start 02/20/20 at 21:00 Pantoprazole Sodium (Protonix) 40 mg DAILYAC PO ; Start 02/21/20 at 07:30; Status UNV Prazosin HCl (Minipress) 1 mg QHS PO Last administered on 02/25/20at 20:10; Start 02/20/20 at 21:00 Rifaximin (Xifaxan) 550 mg Q12HR PO Last administered on 02/26/20 08:54; Start 02/20/20 at 10:00 Trazodone HCl (Desyrel) 100 mg QHS PO Last administered on 02/25/20 20:11; Start 02/20/20 at 21:00 Ziprasidone (Geodon) 20 mg BID PO Last administered on 02/26/20 08:52; Start 02/20/20 at 10:00 Benztropine Mesylate (Cogentin) 0.5 mg BID PO Last administered on 02/26/20 08:54; Start 02/20/20 at 09:45 Multivitamins (Thera M Plus) 1 tab DAILY PO Last administered on 02/21/20 09:41; Start 02/20/20 at 10:00; Stop 02/22/20 at 08:28; Status DC Thiamine Mononitrate (Vitamin B-1) 100 mg DAILY PO Last administered on 02/21/20 09:40; Start 02/20/20 at 10:00; Stop 02/22/20 at 08:28; Status DC Gabapentin (Neurontin) 300 mg TID PO Last administered on 02/26/20 08:53; Start 02/20/20 at 10:00 Influenza Virus Vaccine Quadrival (Afluria Quad 2019-20 (3yr Up) Syringe) 0.5 ml ONCE ONCE VAX IM Last administered on 02/20/20 12:13; Start 02/20/20 at 11:30; Stop 02/20/20 at 11:34; Status DC Metoclopramide HCl (Reglan Vial) 10 mg Q6HRS IVP Last administered on 02/23/20 06:28; Start 02/20/20 at 14:00; Stop 02/23/20 at 11:38; Status DC Hydromorphone HCl (Dilaudid) 0.2 mg 1X ONCE IVP Last administered on 02/20/20 14:52; Start 02/20/20 at 14:45; Stop 02/20/20 at 14:47; Status DC Hydromorphone HCl (Dilaudid) 0.4 mg PRN Q4HRS PRN IVP PAIN Last administered on 02/23/20 14:11; Start 02/20/20 at 21:30 Multivitamins 10 ml/Thiamine HCl 100 mg/Folic Acid 1 mg/Sodium Chloride 1,011.2 ml @ 1,000.088 mls/hr 1X ONCE IV Last administered on 02/20/20at 22:03; Start 02/20/20 at 21:45; Stop 02/20/20 at 22:45; Status DC Lorazepam (Ativan Inj) 1 mg PRN Q1HR PRN IV For CIWA 8-14 Last administered on 02/21/20at 06:16; Start 02/21/20 at 04:45; Stop 02/21/20 at 13:48; Status DC Multivitamins 10 ml/Thiamine HCl 100 mg/Folic Acid 1 mg/Sodium Chloride 1,011.2 ml @ 100 mls/ hr DAILY IV Last administered on 02/24/20at 08:46; Start 02/22/20 at 09:00; Stop 02/25/20 at 08:59; Status DC Multivitamins (Thera M Plus) 1 tab DAILY PO ; Start 02/26/20 at 09:00; Status UNV Folic Acid (Folic Acid) 1 mg DAILY PO ; Start 02/26/20 at 09:00; Status UNV Thiamine Mononitrate (Vitamin B-1) 100 mg DAILY PO ; Start 02/26/20 at 09:00; Status UNV Lorazepam (Ativan) 4 mg PRN Q1HR PRN PO For CIWA 8-14 Last administered on 02/26/20at 05:42; Start 02/21/20 at 13:45 Lorazepam (Ativan) 8 mg PRN Q1HR PRN PO For CIWA 15 or greater; Start 02/21/20 at 13:45 Lorazepam (Ativan Inj) 2 mg PRN Q1HR PRN IV For CIWA 8-14 Last administered on 02/26/20at 09:00; Start 02/21/20 at 13:45 Lorazepam (Ativan Inj) 4 mg PRN Q1HR PRN IV For CIWA 15 or greater; Start 02/21/20 at 13:45 Haloperidol Lactate (Haldol Inj) 5 mg PRN Q4HRS PRN IVP Hallucinatns,Co nfusn,Delirium; Start 02/21/20 at 13:45; Status UNV Diphenhydramine HCl (Benadryl) 25 mg PRN Q15MIN PRN IVP EPS symptoms 2'Haldol admin; Start 02/21/20 at 13:45 Lorazepam (Ativan Inj) 2 mg PRN Q15MIN PRN IV SEE COMMENTS; Start 02/21/20 at 13:45; Status UNV Lorazepam (Ativan Inj) 4 mg PRN Q15MIN PRN IV SEE COMMENTS; Start 02/21/20 at 13:45; Status UNV Folic Acid (Folic Acid) 1 mg DAILY PO Last administered on 02/26/20at 08:53; Start 02/25/20 at 09:00 Multivitamins (Thera M Plus) 1 tab DAILY PO Last administered on 02/26/20at 08:57; Start 02/25/20 at 09:00 Thiamine Mononitrate (Vitamin B-1) 100 mg DAILY PO Last administered on 02/26/20at 08:53; Start 02/25/20 at 09:00 Ringer's Solution 1,000 ml @ 100 mls/hr Q10H IV Last administered on 02/26/20at 05:34; Start 02/22/20 at 10:15 Propofol 40 ml @ As Directed STK-MED ONCE IV ; Start 02/22/20 at 10:41; Stop 02/22/20 at 10:41; Status DC Lidocaine HCl (Lidocaine Pf 2% Vial) 5 ml STK-MED ONCE .ROUTE ; Start 02/22/20 at 10:41; Stop 02/22/20 at 10:41; Status DC Pantoprazole Sodium (Protonix) 40 mg DAILYAC PO Last administered on 02/26/20at 08:53; Start 02/24/20 at 07:30 Propranolol HCl (Inderal) 10 mg BID PO Last administered on 02/26/20at 08:52; Start 02/23/20 at 14:00 Active Scripts Active Buspirone Hcl 5 Mg Tablet 5 Mg PO PRN TID PRN 30 Days Dilaudid (Hydromorphone Hcl) 2 Mg Tablet 2 Mg PO PRN Q8HRS PRN 6 Days Benztropine Mesylate 0.5 Mg Tablet 1 Tab PO BID 30 Days Geodon (Ziprasidone Hcl) 20 Mg Capsule 20 Mg PO BID 30 Days Trazodone Hcl 100 Mg Tablet 100 Mg PO QHS 30 Days Catapres (Clonidine Hcl) 0.1 Mg Tablet 0.1 Mg PO PRN Q1HR PRN 7 Days Can take for withdrawal symptoms Xifaxan (Rifaximin) 550 Mg Tablet 550 Mg PO Q12HR 30 Days Lactulose 20 Gm/30 Ml Solution 20 Gm PO TID 30 Days Prazosin Hcl 1 Mg Capsule 1 Cap PO QHS 30 Days Pantoprazole Sodium (Pantoprazole Sodium) 40 Mg Tablet.dr 40 Mg PO DAILYAC Multivitamins (Multivitamin) 1 Each Tablet 1 Tab PO DAILY Folic Acid 1 Mg Tablet 1 Tab PO DAILY Vitamin B-1 (Thiamine Hcl) 100 Mg Tablet 100 Mg PO DAILY 30 Days Feosol (Ferrous Sulfate) 325 Mg Tablet 325 Mg PO DAILYWBKFT 30 Days Reported Zyprexa (Olanzapine) 5 Mg Tablet 1 Tab PO QHS Hydroxyzine Hcl 25 Mg Tablet 3 Tab PO TID Vitals/I & O Vital Sign - Last 24 Hours 02/25/20 02/25/20 02/25/20 02/25/20 11:24 11:26 15:19 19:15 Temp 98.2 98.6 98.8 98.2 98.6 98.8 Pulse 79 84 77 Resp 16 20 16 18 B/P (MAP) 122/80 (94) 126/76 (93) 124/80 (95) Pulse Ox 95 96 92 O2 Delivery Room Air Room Air Room Air Room Air 02/25/20 02/25/20 02/25/20 02/25/20 20:10 20:10 20:10 20:10 Pulse 76 76 Resp 18 B/P (MAP) 131/76 131/76 O2 Delivery Room Air Room Air 02/25/20 02/26/20 02/26/20 02/26/20 21:10 03:20 07:20 08:00 Temp 99.1 98.6 99.1 98.6 Pulse 79 82 Resp 18 16 B/P (MAP) 130/74 (92) 125/56 (79) Pulse Ox 95 94 O2 Delivery Room Air Nasal Cannula Room Air Room Air O2 Flow Rate 2.0 02/26/20 02/26/20 08:52 08:54 Pulse 82 B/P (MAP) 125/56 Pulse Ox 94 O2 Delivery Room Air O2 Flow Rate 2.0 Intake and Output 02/25/20 02/25/20 02/26/20 15:00 23:00 07:00 Intake Total 400 ml 100 ml 1046 ml Balance 400 ml 100 ml 1046 ml Hemodynamically unstable?: No Is patient in severe pain?: No Is NPO status required?: No KORY CRAIG MD Feb 26, 2020 11:05
[2020-02-26 11:17] VITALS: BP 122/62
[2020-02-26] MEDS: hydrOXYzine 25 MG TABLET PO SCH ×3 (11:34→21:22)
[2020-02-26 15:03] VITALS: BP 120/70
[2020-02-26 19:00] VITALS: BP 118/67
[2020-02-26] MEDS: OLANZapine 5 MG TABLET PO SCH (21:22)
[2020-02-26] MEDS: traZODone 100 MG TABLET. PO SCH (21:22)
[2020-02-26] MEDS: PRAZOSIN 1 MG CAPSULE. PO SCH (21:22)
[2020-02-26 23:02] VITALS: BP 126/62
[2020-02-27] MEDS: IV RINGERS,LACTATED 1000ML 1,000 ML IV SCH ×3 (00:15→21:17)
[2020-02-27 04:06] VITALS: BP 124/69
[2020-02-27] MEDS: hydrOXYzine 25 MG TABLET PO SCH ×3 (09:01→19:55)
[2020-02-27] MEDS: ZIPRASIDONE 20 MG CAPSULE PO SCH ×2 (09:01→19:54)
[2020-02-27] MEDS: GABAPENTIN 300 MG CAPSULE. PO SCH ×3 (09:01→19:56)
[2020-02-27] MEDS: MULTIVITAMIN with MINERAL TABLET. PO SCH (09:01)
[2020-02-27] MEDS: BENZTROPINE MESYLATE 1 MG TABLET. PO SCH ×2 (09:02→19:55)
[2020-02-27] MEDS: HYDROmorphone 2 MG TABLET PO PRN ×2 (09:02→17:50)
[2020-02-27] MEDS: FOLIC ACID 1 MG TABLET. PO SCH (09:04)
[2020-02-27] MEDS: THIAMINE 100 MG TABLET. PO SCH (09:04)
[2020-02-27] MEDS: rifAXIMin 550 MG TABLET PO SCH ×2 (09:05→19:54)
[2020-02-27] MEDS: FERROUS SULFATE 325 MG TABLET. PO SCH (09:05)
[2020-02-27] MEDS: PROPRANOLOL 10 MG TABLET. PO SCH ×2 (09:05→19:56)
[2020-02-27] MEDS: LACTULOSE 20 GM/30 ML SOLUTION. PO SCH ×3 (09:05→19:54)
[2020-02-27] MEDS: PANTOPRAZOLE 40 MG TABLET.DR. PO SCH (09:05)
[2020-02-27 09:26] VITALS: BP 114/54
--- NOTE | 2020-02-27 10:31 | PDOC ---
PROGRESS NOTES History of Present Illness History of Present Illness VTE Prophylaxis Ordered VTE Prophylaxis Devices: No VTE Pharmacological Prophylaxi: Contraindicated Assessment/Plan Assessment/Plan A/P: Hematemeis - Hb stable. GI consulted. acute variceal bleed EtOH abuse - with acute intoxication on admission. GANESHWA scale, banana bag. Will add gabapentin based on new clinical trial data to help him avoid relapse Acute alcohol intoxication - will cont MONA, banana bag Major depression - needs outpatient treatment Right clavicle fracture - sling and oral diluadid Thrombocytopenia - likely related to liver disease, will minimize his exposure to 1st generation anti-psychotics based on this. 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 Will cont his home medications which have helped reduce his hospitalizations Smoker - counseled on cessation Alpha-1 antitrypsin deficiency - MZ mutation - increases his risk of liver disease given his ETOH abuse DJD - pain control Transaminitis - fits ETOH pattern. trend Hepatic cirrhosis and findings of portal hypertension , C/W END ORGAN INJURY. INR 1.5 and Bilirubin 2.6 Esophageal varices - numerous, :Varices with stigmata of recent bleeding; all 3 banded. 02/21 Gallstone lodged at the gallbladder neck, no gallbladder wall thickening - seen by general surgery previously, no indication for surgery FEN - ice chips PPX - Protonix, SCDs FULL CODE Dispo - med tele for acute UGIB ice chips, IV Reglan, IV PPI. 02/20 abd pain slow to improve Indication: recurrent hematemesis 02/21 Meds: per anesthesia Findings: E--grade III varices mid/distal esophagus (larger after rehydration?). 3 with white thrombus at tips. All 3 banded. Otherwise normal. G--Retained liquid, grossly broth. Hard to see his portal hypertensive gastropathy seconday to this. No other lesions. D--Normal to second portion. Meghann. well. IMP: Varices with stigmata of recent bleeding; all 3 banded. REC: Clears today. Begin advance diet in AM if no problems. If major rebleeding-->TIPS. Continue PPI. MEENA HASTINGS MD Feb 22, 2020 11:05 02/24 agitated, some hallucinations today, now on toprol bid // eating without issue, no bleeding, has been hallucinating 02/26 [address] halls, confused to details EASILY REDIRECTED, appears to be unable to provide ADL'S Vitals Vitals Vital Signs Date Time Temp Pulse Resp B/P (MAP) Pulse Ox O2 Delivery O2 Flow Rate FiO2 02/27/20 09:26 98.3 67 16 114/54 (74) 91 Room Air 98.3 02/26/20 11:37 2.0 Physical Exam General: Alert, Cooperative, No acute distress, mild distress, Other (CONFUSED) Heart: Regular rate, Normal S1, Normal S2, No murmurs Lungs: Clear Abdomen: Normal bowel sounds, Soft, No tenderness, No hepatosplenomegaly, No masses Extremities: No clubbing, No cyanosis, No edema, Normal pulses, Other (Tenderness on right clavicle) Skin: No rashes, No breakdown, No significant lesion Comment Review of Relevant I have reviewed the following items mc (where applicable) has been applied. Labs Laboratory Tests Test 02/26/20 06:25 White Blood Count 3.0 x10^3/uL (4.0-11.0) Red Blood Count 3.81 x10^6/uL (4.30-5.70) Hemoglobin 12.2 g/dL (13.0-17.5) Hematocrit 37.1 % (39.0-53.0) Mean Corpuscular Volume 97 fL (79-100) Mean Corpuscular Hemoglobin 32 pg (25-35) Mean Corpuscular Hemoglobin Concent 33 g/dL (31-37) Red Cell Distribution Width 18.7 % (11.5-14.5) Platelet Count 51 x10^3/uL (140-400) Neutrophils (%) (Auto) 59 % (31-73) Lymphocytes (%) (Auto) 27 % (24-48) Monocytes (%) (Auto) 10 % (0-9) Eosinophils (%) (Auto) 4 % (0-3) Basophils (%) (Auto) 1 % (0-3) Neutrophils # (Auto) 1.7 x10^3/uL (1.8-7.7) Lymphocytes # (Auto) 0.8 x10^3/uL (1.0-4.8) Monocytes # (Auto) 0.3 x10^3/uL (0.0-1.1) Eosinophils # (Auto) 0.1 x10^3/uL (0.0-0.7) Basophils # (Auto) 0.0 x10^3/uL (0.0-0.2) Medications Current Medications Pantoprazole Sodium (PROTONIX VIAL for IV PUSH) 80 mg 1X ONCE IVP Last administered on 02/20/20at 07:27; Start 02/20/20 at 07:15; Stop 02/20/20 at 07:16; Status DC Octreotide Acetate (SandoSTATIN) 50 mcg 1X ONCE IV Last administered on 02/20/20at 07:29; Start 02/20/20 at 07:15; Stop 02/20/20 at 07:16; Status DC Metoclopramide HCl (Reglan Vial) 10 mg 1X ONCE IVP Last administered on 02/20/20at 07:27; Start 02/20/20 at 07:15; Stop 02/20/20 at 07:16; Status DC Haloperidol Lactate (Haldol Inj) 5 mg STK-MED ONCE .ROUTE ; Start 02/20/20 at 08:08; Stop 02/20/20 at 08:09; Status DC Haloperidol Lactate (Haldol Inj) 2.5 mg 1X ONCE IVP Last administered on 02/20/20at 08:14; Start 02/20/20 at 08:15; Stop 02/20/20 at 08:16; Status DC Ondansetron HCl (Zofran) 4 mg PRN Q8HRS PRN IV NAUSEA/VOMITING; Start 02/20/20 at 08:30; Stop 02/20/20 at 09:15; Status DC Lorazepam (Ativan Inj) 1 mg 1X ONCE IVP Last administered on 02/20/20at 09:00; Start 02/20/20 at 09:00; Stop 02/20/20 at 09:03; Status DC Ondansetron HCl (Zofran) 4 mg PRN Q4HRS PRN IV NAUSEA/VOMITING Last administered on 02/24/20at 12:25; Start 02/20/20 at 09:15 Magnesium Sulfate 100 ml @ 25 mls/hr 1X ONCE IV Last administered on 02/20/20at 10:40; Start 02/20/20 at 10:00; Stop 02/20/20 at 13:59; Status DC Pantoprazole Sodium (PROTONIX VIAL for IV PUSH) 40 mg BIDAC IVP Last administered on 02/23/20at 08:37; Start 02/20/20 at 09:30; Stop 02/23/20 at 11:38; Status DC Lorazepam (Ativan Inj) 1 mg PRN Q4HRS PRN IV For CIWA 8-14 Last administered on 02/21/20at 02:27; Start 02/20/20 at 09:15; Stop 02/21/20 at 04:47; Status DC Haloperidol Lactate (Haldol Inj) 5 mg PRN Q4HRS PRN IVP Hallucinatns,Confusn,Delirium; Start 02/20/20 at 09:15 Buspirone HCl (Buspar) 5 mg PRN TID PRN PO Anxiety; Start 02/20/20 at 09:15 Clonidine HCl (Catapres) 0.1 mg PRN Q1HR PRN PO SBP > 180 or DBP > 100, MRX3; Start 02/20/20 at 09:15 Ferrous Sulfate (Feosol) 325 mg DAILYWBKFT PO Last administered on 02/27/20at 09:05; Start 02/20/20 at 12:00 Folic Acid (Folic Acid) 1 mg DAILY PO Last administered on 02/21/20at 09:40; Start 02/20/20 at 10:00; Stop 02/22/20 at 08:27; Status DC Hydromorphone HCl (Dilaudid) 2 mg PRN Q8HRS PRN PO MODERTE TO SEVERE PAIN Last administered on 02/27/20at 09:02; Start 02/20/20 at 09:15 Hydroxyzine HCl (Atarax) 75 mg TID PO Last administered on 02/27/20at 09:01; Start 02/20/20 at 10:00 Lactulose (Lactulose) 20 gm TID PO Last administered on 02/27/20at 09:05; Start 02/20/20 at 10:00 Olanzapine (ZyPREXA) 5 mg QHS PO Last administered on 02/26/20at 21:22; Start 02/20/20 at 21:00 Pantoprazole Sodium (Protonix) 40 mg DAILYAC PO ; Start 02/21/20 at 07:30; Status UNV Prazosin HCl (Minipress) 1 mg QHS PO Last administered on 02/26/20 21:22; Start 02/20/20 at 21:00 Rifaximin (Xifaxan) 550 mg Q12HR PO Last administered on 02/27/20 09:05; Start 02/20/20 at 10:00 Trazodone HCl (Desyrel) 100 mg QHS PO Last administered on 02/26/20 21:22; Start 02/20/20 at 21:00 Ziprasidone (Geodon) 20 mg BID PO Last administered on 02/27/20 09:01; Start 02/20/20 at 10:00 Benztropine Mesylate (Cogentin) 0.5 mg BID PO Last administered on 02/27/20 09:02; Start 02/20/20 at 09:45 Multivitamins (Thera M Plus) 1 tab DAILY PO Last administered on 02/21/20 09:4 1; Start 02/20/20 at 10:00; Stop 02/22/20 at 08:28; Status DC Thiamine Mononitrate (Vitamin B-1) 100 mg DAILY PO Last administered on 02/21/20 09:40; Start 02/20/20 at 10:00; Stop 02/22/20 at 08:28; Status DC Gabapentin (Neurontin) 300 mg TID PO Last administered on 02/27/20 09:01; Start 02/20/20 at 10:00 Influenza Virus Vaccine Quadrival (Afluria Quad 2019-20 (3yr Up) Syringe) 0.5 ml ONCE ONCE VAX IM Last administered on 02/20/20at 12:13; Start 02/20/20 at 11:30; Stop 02/20/20 at 11:34; Status DC Metoclopramide HCl (Reglan Vial) 10 mg Q6HRS IVP Last administered on 02/23/20 06:28; Start 02/20/20 at 14:00; Stop 02/23/20 at 11:38; Status DC Hydromorphone HCl (Dilaudid) 0.2 mg 1X ONCE IVP Last administered on 02/20/20at 14:52; Start 02/20/20 at 14:45; Stop 02/20/20 at 14:47; Status DC Hydromorphone HCl (Dilaudid) 0.4 mg PRN Q4HRS PRN IVP PAIN Last administered on 02/23/20at 14:11; Start 02/20/20 at 21:30 Multivitamins 10 ml/Thiamine HCl 100 mg/Folic Acid 1 mg/Sodium Chloride 1,011.2 ml @ 1,000.088 mls/hr 1X ONCE IV Last administered on 02/20/20at 22:03; Start 02/20/20 at 21:45; Stop 02/20/20 at 22:45; Status DC Lorazepam (Ativan Inj) 1 mg PRN Q1HR PRN IV For CIWA 8-14 Last administered on 02/21/20at 06:16; Start 02/21/20 at 04:45; Stop 02/21/20 at 13:48; Status DC Multivitamins 10 ml/Thiamine HCl 100 mg/Folic Acid 1 mg/Sodium Chloride 1,011.2 ml @ 100 mls/ hr DAILY IV Last administered on 02/24/20at 08:46; Start 02/22/20 at 09:00; Stop 02/25/20 at 08:59; Status DC Multivitamins (Thera M Plus) 1 tab DAILY PO ; Start 02/26/20 at 09:00; Status UNV Folic Acid (Folic Acid) 1 mg DAILY PO ; Start 02/26/20 at 09:00; Status UNV Thiamine Mononitrate (Vitamin B-1) 100 mg DAILY PO ; Start 02/26/20 at 09:00; Status UNV Lorazepam (Ativan) 4 mg PRN Q1HR PRN PO For CIWA 8-14 Last administered on 02/26/20at 21:35; Start 02/21/20 at 13:45 Lorazepam (Ativan) 8 mg PRN Q1HR PRN PO For CIWA 15 or greater; Start 02/21/20 at 13:45 Lorazepam (Ativan Inj) 2 mg PRN Q1HR PRN IV For CIWA 8-14 Last administered on 02/26/20at 09:00; Start 02/21/20 at 13:45 Lorazepam (Ativan Inj) 4 mg PRN Q1HR PRN IV For CIWA 15 or greater Last administered on 02/26/20at 22:55; Start 02/21/20 at 13:45 Haloperidol Lactate (Haldol Inj) 5 mg PRN Q4HRS PRN IVP Hallucinatns,Confusn,Delirium; Start 02/21/20 at 13:45; Status UNV Diphenhydramine HCl (Benadryl) 25 mg PRN Q15MIN PRN IVP EPS symptoms 2'Haldol admin; Start 02/21/20 at 13:45 Lorazepam (Ativan Inj) 2 mg PRN Q15MIN PRN IV SEE COMMENTS; Start 02/21/20 at 13:45; Status UNV Lorazepam (Ativan Inj) 4 mg PRN Q15MIN PRN IV SEE COMMENTS; Start 02/21/20 at 13:45; Status UNV Folic Acid (Folic Acid) 1 mg DAILY PO Last administered on 02/27/20at 09:04; Start 02/25/20 at 09:00 Multivitamins (Thera M Plus) 1 tab DAILY PO Last administered on 02/27/20at 09:01; Start 02/25/20 at 09:00 Thiamine Mononitrate (Vitamin B-1) 100 mg DAILY PO Last administered on 02/27/20at 09:04; Start 02/25/20 at 09:00 Ringer's Solution 1,000 ml @ 100 mls/hr Q10H IV Last administered on 02/26/20at 05:34; Start 02/22/20 at 10:15 Propofol 40 ml @ As Directed STK-MED ONCE IV ; Start 02/22/20 at 10:41; Stop 02/22/20 at 10:41; Status DC Lidocaine HCl (Lidocaine Pf 2% Vial) 5 ml STK-MED ONCE .ROUTE ; Start 02/22/20 at 10:41; Stop 02/22/20 at 10:41; Status DC Pantoprazole Sodium (Protonix) 40 mg DAILYAC PO Last administered on 02/27/20at 09:05; Start 02/24/20 at 07:30 Propranolol HCl (Inderal) 10 mg BID PO Last administered on 02/27/20at 09:05; Start 02/23/20 at 14:00 Active Scripts Active Buspirone Hcl 5 Mg Tablet 5 Mg PO PRN TID PRN 30 Days Dilaudid (Hydromorphone Hcl) 2 Mg Tablet 2 Mg PO PRN Q8HRS PRN 6 Days Benztropine Mesylate 0.5 Mg Tablet 1 Tab PO BID 30 Days Geodon (Ziprasidone Hcl) 20 Mg Capsule 20 Mg PO BID 30 Days Trazodone Hcl 100 Mg Tablet 100 Mg PO QHS 30 Days Catapres (Clonidine Hcl) 0.1 Mg Tablet 0.1 Mg PO PRN Q1HR PRN 7 Days Can take for withdrawal symptoms Xifaxan (Rifaximin) 550 Mg Tablet 550 Mg PO Q12HR 30 Days Lactulose 20 Gm/30 Ml Solution 20 Gm PO TID 30 Days Prazosin Hcl 1 Mg Capsule 1 Cap PO QHS 30 Days Pantoprazole Sodium (Pantoprazole Sodium) 40 Mg Tablet.dr 40 Mg PO DAILYAC Multivitamins (Multivitamin) 1 Each Tablet 1 Tab PO DAILY Folic Acid 1 Mg Tablet 1 Tab PO DAILY Vitamin B-1 (Thiamine Hcl) 100 Mg Tablet 100 Mg PO DAILY 30 Days Feosol (Ferrous Sulfate) 325 Mg Tablet 325 Mg PO DAILYWBKFT 30 Days Reported Zyprexa (Olanzapine) 5 Mg Tablet 1 Tab PO QHS Hydroxyzine Hcl 25 Mg Tablet 3 Tab PO TID Vitals/I & O Vital Sign - Last 24 Hours 02/26/20 02/26/20 02/26/20 02/26/20 11:17 11:37 15:03 19:00 Temp 98.5 98.7 99.1 98.5 98.7 99.1 Pulse 71 75 73 Resp 18 18 18 B/P (MAP) 122/62 (82) 120/70 (87) 118/67 (84) Pulse Ox 92 92 96 91 O2 Delivery Room Air Room Air Room Air O2 Flow Rate 2.0 02/26/20 02/26/20 02/26/20 02/26/20 19:46 19:50 20:46 21:22 B/P (MAP) 118/67 Pulse Ox 92 92 O2 Delivery Room Air Room Air Room Air 02/26/20 02/26/20 02/27/20 02/27/20 21:25 23:02 04:06 07:00 Temp 97.9 97.4 97.9 97.4 Pulse 73 77 71 Resp 20 18 16 B/P (MAP) 118/67 126/62 (83) 124/69 (87) Pulse Ox 95 91 O2 Delivery Room Air Room Air 02/27/20 02/27/20 02/27/20 08:45 09:05 09:26 Temp 98.3 98.3 Pulse 67 67 Resp 16 B/P (MAP) 114/54 114/54 (74) Pulse Ox 91 O2 Delivery Room Air Room Air Intake and Output 02/26/20 02/26/20 02/27/20 15:00 23:00 07:00 Intake Total 630 ml Balance 630 ml Hemodynamically unstable?: No Is patient in severe pain?: No Is NPO status required?: No KORY CRAIG MD Feb 27, 2020 10:31
[2020-02-27 10:40] VITALS: BP 122/70
[2020-02-27 15:59] VITALS: BP 110/73
[2020-02-27 18:49] VITALS: BP 114/79
[2020-02-27] MEDS: OLANZapine 5 MG TABLET PO SCH (19:55)
[2020-02-27] MEDS: PRAZOSIN 1 MG CAPSULE. PO SCH (19:56)
[2020-02-27] MEDS: traZODone 100 MG TABLET. PO SCH (19:56)
[2020-02-27 23:00] VITALS: BP 117/81
[2020-02-28] MEDS: HYDROmorphone 2 MG TABLET PO PRN ×2 (02:34→15:16)
[2020-02-28 03:00] VITALS: BP 114/73
[2020-02-28] MEDS: IV RINGERS,LACTATED 1000ML 1,000 ML IV SCH (04:18)
[2020-02-28] MEDS: LORazepam 1 MG TABLET PO PRN (05:33)
[2020-02-28 06:55] VITALS: BP 118/73
--- NOTE | 2020-02-28 09:37 | PDOC ---
PROGRESS NOTES Chief Complaint Chief Complaint A/P: Hematemeis - Hb stable. GI consulted. acute variceal bleed EtOH abuse - with acute intoxication on admission. CIWA scale, banana bag. Will add gabapentin based on new clinical trial data to help him avoid relapse Acute alcohol intoxication - will cont CILIZETH, banana bag Major depression - needs outpatient treatment Right clavicle fracture - sling and oral diluadid Thrombocytopenia - likely related to liver disease, will minimize his exposure to 1st generation anti-psychotics based on this. 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 Will cont his home medications which have helped reduce his hospitalizations Smoker - counseled on cessation Alpha-1 antitrypsin deficiency - MZ mutation - increases his risk of liver disease given his ETOH abuse DJD - pain control Transaminitis - fits ETOH pattern. trend Hepatic cirrhosis and findings of portal hypertension , C/W END ORGAN INJURY. INR 1.5 and Bilirubin 2.6 Esophageal varices - numerous, :Varices with stigmata of recent bleeding; all 3 banded. 02/21 Gallstone lodged at the gallbladder neck, no gallbladder wall thickening - seen by general surgery previously, no indication for surgery FEN - ice chips PPX - Protonix, SCDs FULL CODE Dispo - med tele for acute UGIB History of Present Illness History of Present Illness 02/20 abd pain slow to improve 02/21: EGD - Varices with stigmata of recent bleeding; all 3 banded. 02/24 agitated, some hallucinations today, now on toprol bid // eating without issue, no bleeding, has been hallucinating 02/[address], confused to details EASILY REDIRECTED, appears to be u nable to provide ADL'S Today much more appropriate, eating well. Low CIWA. Wishes to go home today. Vitals Vitals Vital Signs Date Time Temp Pulse Resp B/P (MAP) Pulse Ox O2 Delivery O2 Flow Rate FiO2 02/28/20 06:55 97.5 82 19 118/73 (88) 93 Room Air 97.5 02/27/20 17:50 2.0 Physical Exam General: Alert, Cooperative, No acute distress, mild distress, Other (CONFUSED) Heart: Regular rate, Normal S1, Normal S2, No murmurs Lungs: Clear Abdomen: Normal bowel sounds, Soft, No tenderness, No hepatosplenomegaly, No masses Extremities: No clubbing, No cyanosis, No edema, Normal pulses, Other (Tenderness on right clavicle) Skin: No rashes, No breakdown, No significant lesion Comment Review of Relevant I have reviewed the following items mc (where applicable) has been applied. Medications Current Medications Pantoprazole Sodium (PROTONIX VIAL for IV PUSH) 80 mg 1X ONCE IVP Last administered on 02/20/20at 07:27; Start 02/20/20 at 07:15; Stop 02/20/20 at 07:16; Status DC Octreotide Acetate (SandoSTATIN) 50 mcg 1X ONCE IV Last administered on 02/20/20at 07:29; Start 02/20/20 at 07:15; Stop 02/20/20 at 07:16; Status DC Metoclopramide HCl (Reglan Vial) 10 mg 1X ONCE IVP Last administered on 02/20/20at 07:27; Start 02/20/20 at 07:15; Stop 02/20/20 at 07:16; Status DC Haloperidol Lactate (Haldol Inj) 5 mg STK-MED ONCE .ROUTE ; Start 02/20/20 at 08:08; Stop 02/20/20 at 08:09; Status DC Haloperidol Lactate (Haldol Inj) 2.5 mg 1X ONCE IVP Last administered on 02/19at 08:14; Start 02/20/20 at 08:15; Stop 02/20/20 at 08:16; Status DC Ondansetron HCl (Zofran) 4 mg PRN Q8HRS PRN IV NAUSEA/VOMITING; Start 02/20/20 at 08:30; Stop 02/20/20 at 09:15; Status DC Lorazepam (Ativan Inj) 1 mg 1X ONCE IVP Last administered on 02/20/20at 09:00; Start 02/20/20 at 09:00; Stop 02/20/20 at 09:03; Status DC Ondansetron HCl (Zofran) 4 mg PRN Q4HRS PRN IV NAUSEA/VOMITING Last administered on 02/24/20at 12:25; Start 02/20/20 at 09:15 Magnesium Sulfate 100 ml @ 25 mls/hr 1X ONCE IV Last administered on 02/20/20at 10:40; Start 02/20/20 at 10:00; Stop 02/20/20 at 13:59; Status DC Pantoprazole Sodium (PROTONIX VIAL for IV PUSH) 40 mg BIDAC IVP Last administered on 02/23/20at 08:37; Start 02/20/20 at 09:30; Stop 02/23/20 at 11:38; Status DC Lorazepam (Ativan Inj) 1 mg PRN Q4HRS PRN IV For CIWA 8-14 Last administered on 02/21/20at 02:27; Start 02/20/20 at 09:15; Stop 02/21/20 at 04:47; Status DC Haloperidol Lactate (Haldol Inj) 5 mg PRN Q4HRS PRN IVP Hallucinatns,Confusn,Delirium; Start 02/20/20 at 09:15 Buspirone HCl (Buspar) 5 mg PRN TID PRN PO Anxiety Last administered on 02/28/20at 02:34; Start 02/20/20 at 09:15 Clonidine HCl (Catapres) 0.1 mg PRN Q1HR PRN PO SBP > 180 or DBP > 100, MRX3; Start 02/20/20 at 09:15 Ferrous Sulfate (Feosol) 325 mg DAILYWBKFT PO Last administered on 02/27/20at 09:05; Start 02/20/20 at 12:00 Folic Acid (Folic Acid) 1 mg DAILY PO Last administered on 02/21/20at 09:40; Start 02/20/20 at 10:00; Stop 02/22/20 at 08:27; Status DC Hydromorphone HCl (Dilaudid) 2 mg PRN Q8HRS PRN PO MODERTE TO SEVERE PAIN Last administered on 02/28/20 02:34; Start 02/20/20 at 09:15 Hydroxyzine HCl (Atarax) 75 mg TID PO Last administered on 02/27/20 19:55; Start 02/20/20 at 10:00 Lactulose (Lactulose) 20 gm TID PO Last administered on 02/27/20at 19:54; Start 02/20/20 at 10:00 Olanzapine (ZyPREXA) 5 mg QHS PO Last administered on 02/27/20 19:55; Start 02/20/20 at 21:00 Pantoprazole Sodium (Protonix) 40 mg DAILYAC PO ; Start 02/21/20 at 07:30; Status UNV Prazosin HCl (Minipress) 1 mg QHS PO Last administered on 02/27/20 19:56; Start 02/20/20 at 21:00 Rifaximin (Xifaxan) 550 mg Q12HR PO Last administered on 02/27/20 19:54; Start 02/20/20 at 10:00 Trazodone HCl (Desyrel) 100 mg QHS PO Last administered on 02/27/20 19:56; Start 02/20/20 at 21:00 Ziprasidone (Geodon) 20 mg BID PO Last administered on 02/27/20 19:54; Start 02/20/20 at 10:00 Benztropine Mesylate (Cogentin) 0.5 mg BID PO Last administered on 02/27/20 19:55; Start 02/20/20 at 09:45 Multivitamins (Thera M Plus) 1 tab DAILY PO Last administered on 02/21/20at 09:41; Start 02/20/20 at 10:00; Stop 02/22/20 at 08:28; Status DC Thiamine Mononitrate (Vitamin B-1) 100 mg DAILY PO Last administered on 02/21/20 09:40; Start 02/20/20 at 10:00; Stop 02/22/20 at 08:28; Status DC Gabapentin (Neurontin) 300 mg TID PO Last administered on 02/27/20 19:56; Start 02/20/20 at 10:00 Influenza Virus Vaccine Quadrival (Afluria Quad 2019-20 (3yr Up) Syringe) 0.5 ml ONCE ONCE VAX IM Last administered on 02/20/20at 12:13; Start 02/20/20 at 11:30; Stop 02/20/20 at 11:34; Status DC Metoclopramide HCl (Reglan Vial) 10 mg Q6HRS IVP Last administered on 02/23/20 06:28; Start 02/20/20 at 14:00; Stop 02/23/20 at 11:38; Status DC Hydromorphone HCl (Dilaudid) 0.2 mg 1X ONCE IVP Last administered on 02/20/20at 14:52; Start 02/20/20 at 14:45; Stop 02/20/20 at 14:47; Status DC Hydromorphone HCl (Dilaudid) 0.4 mg PRN Q4HRS PRN IVP PAIN Last administered on 02/23/20at 14:11; Start 02/20/20 at 21:30 Multivitamins 10 ml/Thiamine HCl 100 mg/Folic Acid 1 mg/Sodium Chloride 1,011.2 ml @ 1,000.088 mls/hr 1X ONCE IV Last administered on 02/20/20at 22:03; Start 02/20/20 at 21:45; Stop 02/20/20 at 22:45; Status DC Lorazepam (Ativan Inj) 1 mg PRN Q1HR PRN IV For CIWA 8-14 Last administered on 02/21/20at 06:16; Start 02/21/20 at 04:45; Stop 02/21/20 at 13:48; Status DC Multivitamins 10 ml/Thiamine HCl 100 mg/Folic Acid 1 mg/Sodium Chloride 1,011.2 ml @ 100 mls/ hr DAILY IV Last administered on 02/24/20at 08:46; Start 02/22/20 at 09:00; Stop 02/25/20 at 08:59; Status DC Multivitamins (Thera M Plus) 1 tab DAILY PO ; Start 02/26/20 at 09:00; Status UNV Folic Acid (Folic Acid) 1 mg DAILY PO ; Start 02/26/20 at 09:00; Status UNV Thiamine Mononitrate (Vitamin B-1) 100 mg DAILY PO ; Start 02/26/20 at 09:00; Status UNV Lorazepam (Ativan) 4 mg PRN Q1HR PRN PO For CIWA 8-14 Last administered on 02/28/20at 05:33; Start 02/21/20 at 13:45 Lorazepam (Ativan) 8 mg PRN Q1HR PRN PO For CIWA 15 or greater; Start 02/21/20 at 13:45 Lorazepam (Ativan Inj) 2 mg PRN Q1HR PRN IV For CIWA 8-14 Last administered on 02/27/20at 16:41; Start 02/21/20 at 13:45 Lorazepam (Ativan Inj) 4 mg PRN Q1HR PRN IV For CIWA 15 or greater Last administered on 02/26/20at 22:55; Start 02/21/20 at 13:45 Haloperidol Lactate (Haldol Inj) 5 mg PRN Q4HRS PRN IVP Hallucinatns,Confusn,Delirium; Start 02/21/20 at 13:45; Status UNV Diphenhydramine HCl (Benadryl) 25 mg PRN Q15MIN PRN IVP EPS symptoms 2'Haldol admin; Start 02/21/20 at 13:45 Lorazepam (Ativan Inj) 2 mg PRN Q15MIN PRN IV SEE COMMENTS; Start 02/21/20 at 13:45; Status UNV Lorazepam (Ativan Inj) 4 mg PRN Q15MIN PRN IV SEE COMMENTS; Start 02/21/20 at 13:45; Status UNV Folic Acid (Folic Acid) 1 mg DAILY PO Last administered on 02/27/20at 09:04; Start 02/25/20 at 09:00 Multivitamins (Thera M Plus) 1 tab DAILY PO Last administered on 02/27/20at 09:01; Start 02/25/20 at 09:00 Thiamine Mononitrate (Vitamin B-1) 100 mg DAILY PO Last administered on 02/27/20at 09:04; Start 02/25/20 at 09:00 Ringer's Solution 1,000 ml @ 100 mls/hr Q10H IV Last administered on 02/27/20at 10:51; Start 02/22/20 at 10:15 Propofol 40 ml @ As Directed STK-MED ONCE IV ; Start 02/22/20 at 10:41; Stop 02/22/20 at 10:41; Status DC Lidocaine HCl (Lidocaine Pf 2% Vial) 5 ml STK-MED ONCE .ROUTE ; Start 02/22/20 at 10:41; Stop 02/22/20 at 10:41; Status DC Pantoprazole Sodium (Protonix) 40 mg DAILYAC PO Last administered on 02/27/20at 09:05; Start 02/24/20 at 07:30 Propranolol HCl (Inderal) 10 mg BID PO Last administered on 02/27/20at 19:56; Start 02/23/20 at 14:00 Active Scripts Active Buspirone Hcl 5 Mg Tablet 5 Mg PO PRN TID PRN 30 Days Dilaudid (Hydromorphone Hcl) 2 Mg Tablet 2 Mg PO PRN Q8HRS PRN 6 Days Benztropine Mesylate 0.5 Mg Tablet 1 Tab PO BID 30 Days Geodon (Ziprasidone Hcl) 20 Mg Capsule 20 Mg PO BID 30 Days Trazodone Hcl 100 Mg Tablet 100 Mg PO QHS 30 Days Catapres (Clonidine Hcl) 0.1 Mg Tablet 0.1 Mg PO PRN Q1HR PRN 7 Days Can take for withdrawal symptoms Xifaxan (Rifaximin) 550 Mg Tablet 550 Mg PO Q12HR 30 Days Lactulose 20 Gm/30 Ml Solution 20 Gm PO TID 30 Days Prazosin Hcl 1 Mg Capsule 1 Cap PO QHS 30 Days Pantoprazole Sodium (Pantoprazole Sodium) 40 Mg Tablet.dr 40 Mg PO DAILYAC Multivitamins (Multivitamin) 1 Each Tablet 1 Tab PO DAILY Folic Acid 1 Mg Tablet 1 Tab PO DAILY Vitamin B-1 (Thiamine Hcl) 100 Mg Tablet 100 Mg PO DAILY 30 Days Feosol (Ferrous Sulfate) 325 Mg Tablet 325 Mg PO [id number] 30 Days Reported Zyprexa (Olanzapine) 5 Mg Tablet 1 Tab PO QHS Hydroxyzine Hcl 25 Mg Tablet 3 Tab PO TID Vitals/I & O Vital Sign - Last 24 Hours 02/27/20 02/27/20 02/27/20 02/27/20 10:40 15:59 17:50 18:49 Temp 98.6 98.6 99.0 98.6 98.6 99.0 Pulse 70 71 75 Resp 18 16 18 B/P (MAP) 122/70 (87) 110/73 (85) 114/79 (91) Pulse Ox 92 92 92 92 O2 Delivery Room Air Room Air Room Air Room Air O2 Flow Rate 2.0 02/27/20 02/27/20 02/27/20 02/27/20 19:56 19:56 20:00 23:00 Temp 98.0 98.0 Pulse 75 75 71 Resp 18 B/P (MAP) 114/79 114/79 117/81 (93) Pulse Ox 95 O2 Delivery Room Air Room Air 02/28/20 02/28/20 03:00 06:55 Temp 98.3 97.5 98.3 97.5 Pulse 72 82 Resp 18 19 B/P (MAP) 114/73 (87) 118/73 (88) Pulse Ox 91 93 O2 Delivery Room Air Room Air Intake and Output 02/27/20 02/27/20 02/28/20 15:00 23:00 07:00 Intake Total 420 ml 300 ml Balance 420 ml 300 ml Hemodynamically unstable?: No Is patient in severe pain?: No Is NPO status required?: No BENJIE CHANEL MD Feb 28, 2020 09:37
[2020-02-28] MEDS ORDERED: LORazepam 1 MG TABLET PO PRN (09:45)
[2020-02-28 11:01] VITALS: BP 120/76
--- NOTE | 2020-02-28 11:14 | PDOC ---
Subjective: Subjective: Says if no one's going to help him he'll just go home. Lots of pain. Objective: Objective: 1:1 obs says ate 75% of breakfast. Nurse says IV bad last night, hasn't replaced yet. Vital Signs: Vital Signs Date Time Temp Pulse Resp B/P (MAP) Pulse Ox O2 Delivery O2 Flow Rate FiO2 02/28/20 11:01 97.7 80 19 120/76 (91) 94 Room Air 97.7 02/27/20 17:50 2.0 PE: GEN: NAD LUNGS: clear HEART: RRR ABD: soft NEURO/PSYCH: less confused A/P: Cirrhosis, grade III varices s/p banding 02/21 Chronic pain -- Dc per primary. Hemodynamically unstable?: No Is patient in severe pain?: No Is NPO status required?: No JANET STEWART Feb 28, 2020 11:14
[2020-02-28] MEDS: THIAMINE 100 MG TABLET. PO SCH (11:21)
[2020-02-28] MEDS: LACTULOSE 20 GM/30 ML SOLUTION. PO SCH ×2 (11:21→14:00)
[2020-02-28] MEDS: PROPRANOLOL 10 MG TABLET. PO SCH (11:21)
[2020-02-28] MEDS: MULTIVITAMIN with MINERAL TABLET. PO SCH (11:22)
[2020-02-28] MEDS: rifAXIMin 550 MG TABLET PO SCH (11:22)
[2020-02-28] MEDS: BENZTROPINE MESYLATE 1 MG TABLET. PO SCH (11:22)
[2020-02-28] MEDS: FOLIC ACID 1 MG TABLET. PO SCH (11:22)
[2020-02-28] MEDS: hydrOXYzine 25 MG TABLET PO SCH ×2 (11:22→15:14)
[2020-02-28] MEDS: ZIPRASIDONE 20 MG CAPSULE PO SCH (11:22)
[2020-02-28] MEDS: FERROUS SULFATE 325 MG TABLET. PO SCH (11:23)
[2020-02-28] MEDS: PANTOPRAZOLE 40 MG TABLET.DR. PO SCH (11:23)
[2020-02-28] MEDS: GABAPENTIN 300 MG CAPSULE. PO SCH ×2 (11:23→15:14)
[2020-02-28] MEDS ORDERED: HYDR2TAB31 PO (12:38)
[2020-02-28] MEDS ORDERED: PROP10TA PO (12:38)
[2020-02-28] MEDS ORDERED: GABA300C18 PO (12:38)
--- NOTE | 2020-02-28 12:46 | PDOC3 ---
Discharge Summary Visit Information Date of Admission: Feb 20, 2020 Date of Discharge: Feb 28, 2020 Admitting Diagnosis: UGIB Final Diagnosis UGIB Brief Hospital Course Allergies Allergies Coded Allergies Type Severity Reaction Last Updated Verified adhesive tape Allergy Intermediate Rash 02/22/20 Yes Vital Signs Vital Signs Date Time Temp Pulse Resp B/P (MAP) Pulse Ox O2 Delivery O2 Flow Rate FiO2 02/28/20 11:21 80 120/76 02/28/20 11:01 97.7 19 94 Room Air 97.7 02/27/20 17:50 2.0 Brief Hospital Course Mr Dsouza is a 29yo M w/ PMHx schizophrenia, multiple suicidal attempts (6 in the past year at [facility]), alcohol abuse, DJD, smoker, alpha-1 antitrypsin deficiency (MZ phenotype), and cirrhosis of the liver with variceal banding who p/w 2 days of upper abdominal pain with 7 episodes of vomiting after heavy alcohol use, drinking a pint at a time. His last 2 episodes vomiting were of dark emesis this morning including an estimated 50 mL of gross hematemesis according to EMS just prior to arrival and 150cc in the ED during my examination. No anticoagulant or significant NSAID use. No aggravating or alleviating factors. Hb 15.9, platelets 93. Bilirubin 2.6, INR 1.5, AST 118, Mg 1.6, ETOH 206 at 0710. He was given IV protonix 80mg and IV zofran and called for admission with GI consultation. EKG sinus tachycardia 02/20 abd pain slow to improve 02/21: EGD - Varices with stigmata of recent bleeding; all 3 banded. 02/24 agitated, some hallucinations today, now on toprol bid // eating without issue, no bleeding, has been hallucinating 02/26 [address] halls, confused to details EASILY REDIRECTED, appears to be unable to provide ADL'S Today much more appropriate, eating well. Low CIWA. Wishes to go home today. Problem list: Hematemeis - Hb stable. GI consulted. acute variceal bleed EtOH abuse - with acute intoxication on admission. CIWA scale, banana bag. Will add gabapentin based on new clinical trial data to help him avoid relapse Acute alcohol intoxication - will cont CIWA, banana bag Major depression - needs outpatient treatment Right clavicle fracture - sling and oral diluadid Thrombocytopenia - likely related to liver disease, will minimize his exposure to 1st generation anti-psychotics based on this. 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 Will cont his home medications which have helped reduce his hospitalizations Smoker - counseled on cessation Alpha-1 antitrypsin deficiency - MZ mutation - increases his risk of liver disease given his ETOH abuse DJD - pain control Transaminitis - fits ETOH pattern. trend Hepatic cirrhosis and findings of portal hypertension , C/W END ORGAN INJURY. INR 1.5 and Bilirubin 2.6 Esophageal varices - numerous, Varices with stigmata of recent bleeding; all 3 banded. 02/21 Gallstone lodged at the gallbladder neck, no gallbladder wall thickening - seen by general surgery previously, no indication for surgery Prior admissions to [facility]: 06/21/2017 - 06/25/2017 - Suicidal ideation and alcoholic intoxication. PAT team for suicidal ideation and was cleared for discharge to home rather than inpatient psychiatric admission. EGD 06/25/2017 - small varices and patchy portal gastropathy 06/30/2019 - 07/07/2019 - EGD on 07/01/2019 grade 2 varices with scarring, probably from prior banding in the distal third of the esophagus. Two 1-2 mm linear ulcerations were noted in the distal esophagus. Diffuse portal hypertensive gastropathy was also noted. 06/16/2019 - 06/22/2019 - UGIB 06/23/2019 - 09/02/2019 - Suicide attempt, cut wrists and ETOH intoxication, acute psychosis. Involuntarily committed to [place] 09/10/2019 - 09/14/2019 - ETOH intoxication 09/16/2019 - 09/21/2019 - Wrist cutting, mother called adult protective services. ETOH intoxication 11/02/2019 - 11/03/2019 - GB disease 12/19/2019 - 12/26/2019 - ETOH intoxication, suicidal ideation 01/10/2020 - 01/13/2020 - ETOH intoxication Greater than 30 minutes spent on d/c Discharge Information Condition at Discharge: Improved Follow Up: Weeks (1) Disposition/Orders: D/C to Home Scheduled Benztropine Mesylate (Benztropine Mesylate) 0.5 Mg Tablet, 1 TAB PO BID for EPS for 30 Days, #60 Ref 2 Prescribed by: BENJIE CHANEL MD on 12/26/19 0824 Last Action: Converted on 02/20/20915 by BENJIE CHANEL MD Ferrous Sulfate (Feosol) 325 Mg Tablet, 325 MG PO DAILYWBKFT for 30 Days, #30 Prescribed by: YAYA MORTENSEN MD on 06/24/17 1218 Last Action: Continued on 02/20/20914 by BENJIE CHANEL MD Folic Acid (Folic Acid) 1 Mg Tablet, 1 TAB PO DAILY for liver, #90 Ref 1 Prescribed by: KUSH SOFIA on 07/07/19 112 Last Action: Continued on 02/20/20914 by BENJIE CHANEL MD Gabapentin (Gabapentin) 300 Mg Capsule, 300 MG PO TID for ETOH dependence for 30 Days, #90 Ref 2 Prescribed by: BENJIE CHANEL MD on 02/28/20 1238 Hydroxyzine Hcl (Hydroxyzine Hcl) 25 Mg Tablet, 3 TAB PO TID for anxiety, (Reported) Entered as Reported by: AIME TOMPKINS RN on 08/18/19 1715 Last Action: Continued on 02/20/20914 by BENJIE CHANEL MD Lactulose (Lactulose) 20 Gm/30 Ml Solution, 20 GM PO TID for constipatrion for 30 Days, #2700 Ref 2 Prescribed by: BENJIE CHANEL MD on 12/26/19 0823 Last Action: Continued on 02/20/20915 by BENJIE CHANEL MD Multivitamin (Multivitamins) 1 Each Tablet, 1 TAB PO DAILY for liver, #90 Ref 3 Prescribed by: KUSH SOFIA on 07/07/19 112 Last Action: Converted on 02/20/20915 by BENJIE CHANEL MD Olanzapine (Zyprexa) 5 Mg Tablet, 1 TAB PO QHS for Anxiety, (Reported) Entered as Reported by: HANK JOHN on 08/20/19 2100 Last Action: Continued on 02/20/20915 by BENJIE CHANEL MD Pantoprazole Sodium (Pantoprazole Sodium ) 40 Mg Tablet.dr, 40 MG PO DAILYAC for transient hematemesis, #60 Prescribed by: SONAL SANDS on 09/14/19 0837 Last Action: Continued on 02/20/20915 by BENJIE CHANEL MD Prazosin Hcl (Prazosin Hcl) 1 Mg Capsule, 1 CAP PO QHS for anxiety/depression for 30 Days, #30 Ref 2 Prescribed by: BENJIE CHANEL MD on 12/26/19822 Last Action: Continued on 02/20/20915 by BENJIE CHANEL MD Propranolol Hcl (Propranolol Hcl) 10 Mg Tablet, 10 MG PO BID for Varices for 30 Days, #60 Ref 2 Prescribed by: BENJIE CHANEL MD on 02/28/20 1238 Rifaximin (Xifaxan) 550 Mg Tablet, 550 MG PO Q12HR for Cirrhosis for 30 Days, #60 Ref 2 Prescribed by: BENJIE CHANEL MD on 12/26/19822 Last Action: Continued on 02/20/20915 by BENJIE CHANEL MD Thiamine Hcl (Vitamin B-1) 100 Mg Tablet, 100 MG PO DAILY for liver for 30 Days, #30 Prescribed by: KUSH SOFIA on 07/07/19 112 Last Action: Converted on 02/20/20915 by BENJIE CHANEL MD Trazodone Hcl (Trazodone Hcl) 100 Mg Tablet, 100 MG PO QHS for Depression/Sleep for 30 Days, #30 Ref 2 Prescribed by: BENJIE CHANEL MD on 12/26/19822 Last Action: Continued on 02/20/20915 by BENJIE CHANEL MD Ziprasidone Hcl (Geodon) 20 Mg Capsule, 20 MG PO BID for Mood Stabilizer for 30 Days, #60 Ref 2 Prescribed by: BENJIE CHANEL MD on 12/26/19822 Last Action: Continued on 02/20/20915 by BENJIE CHANEL MD Scheduled PRN Buspirone Hcl (Buspirone Hcl) 5 Mg Tablet, 5 MG PO PRN TID PRN for Anxiety for 30 Days, #60 Prescribed by: BENJIE CHANEL MD on 01/24/20 1106 Last Action: Continued on 02/20/20914 by BENJIE CHANEL MD Clonidine Hcl (Catapres) 0.1 Mg Tablet, 0.1 MG PO PRN Q1HR PRN for SBP > 180 or DBP > 100, MRX3 for 7 Days, #14 Can take for withdrawal symptoms Prescribed by: BENJIE CHANEL MD on 12/26/19 0823 Last Action: Continued on 02/20/20 0915 by BENJIE CHANEL MD Hydromorphone Hcl (Dilaudid) 2 Mg Tablet, 2 MG PO PRN Q8HRS PRN for PAIN for 6 Days, #15 Prescribed by: BENJIE CHANEL MD on 02/28/20 1238 Hemodynamically unstable?: No Is patient in severe pain?: No Is NPO status required?: No BENJIE CHANEL MD Feb 28, 2020 12:46
[2020-02-28 14:50] VITALS: BP 118/78
--- NOTE | 2020-02-28 16:59 | NUR ---
Discharge Note: DENISHA MCFARLAND [address] Discharge instructions and discharge home medications reviewed with Patient and a copy given. All questions have been answered and understanding verbalized. The following instructions and handouts were given: Alcohol Abuse, Cirrhosis Discontinued lines and drains: IV catheter removed intact. Tele monitor removed. Patient discharged to Home with self care via wheelchair
== END 2020-02-28 16:52 | disposition home or self-care (01) | DRG 432 ==
LOC: ER 06:59 → 6 SOUTH 08:38
PROVIDERS: ADMIT Internal Medicine; ATTEND Internal Medicine
PROC: 06L38CZ Occlusion of Esophageal Vein with Extraluminal Device, Via Natural or Artificial Opening Endoscopic (ICD-10-PCS; principal; 2020-02-22 11:00)
DX: K70.30 Alcoholic cirrhosis of liver without ascites (principal); I85.01 Esophageal varices with bleeding; K76.6 Portal hypertension; R45.851 Suicidal ideations; D61.818 Other pancytopenia; E87.6 Hypokalemia; F17.210 Nicotine dependence, cigarettes, uncomplicated; F32.9 Major depressive disorder, single episode, unspecified; F25.9 Schizoaffective disorder, unspecified; Z91.048 Other nonmedicinal substance allergy status; M19.90 Unspecified osteoarthritis, unspecified site; I10 Essential (primary) hypertension; K21.9 Gastro-esophageal reflux disease without esophagitis; F41.9 Anxiety disorder, unspecified; Y90.7 Blood alcohol level of 200-239 mg/100 ml; F10.229 Alcohol dependence with intoxication, unspecified; D69.59 Other secondary thrombocytopenia; E88.01 Alpha-1-antitrypsin deficiency; K80.20 Calculus of gallbladder without cholecystitis without obstruction; K57.90 Diverticulosis of intestine, part unspecified, without perforation or abscess without bleeding; K31.89 Other diseases of stomach and duodenum; E83.42 Hypomagnesemia; G89.29 Other chronic pain
CPT/HCPCS: 36415; 43244; 80053; 83690; 83735; 85025; 85027; 85610; 85730; 86850; 86900; 86901; 90471; 90686; 93005; 96374; 96375; 99285; C9113; G0480; J1170; J1630; J2060; J2354; J2405; J2704; J2765; J3411; J3475; J3490; J7030; J7120; G0378

== ENCOUNTER 2020-05-10 16:30 | Inpatient (IN) | payer MEDICAID ==
[~2020-05-10] VITALS: Ht 172.7 cm; Wt 88.5 kg
[~2020-05-10 16:30] MED LIST changes: +GABA300C18 PO; +MULT-445 PO; -MULT1TAB52 PO; +PROP10TA PO
[2020-05-10] MEDS ORDERED: ZIPRASIDONE IM 20 MG VIAL. IM ONE (16:45)
--- NOTE | 2020-05-10 16:45 | PDOC1 ---
History and Physical Date of Admission Date of Admission DATE: 05/10/20 TIME: 16:45 Identification/Chief Complaint Chief Complaint Suicide attempt Source Source: Patient History of Present Illness History of Present Illness Mr Dsouza is a 30yo M w/ PMHx schizophrenia, multiple suicidal attempts (6 in the past year at [facility]), alcohol abuse, DJD, smoker, alpha-1 antitrypsin deficiency (MZ phenotype), and cirrhosis of the liver with variceal banding who p/w suicidal ideation. He called 911 as he felt the urge to stab himself in the chest to end his life. Initially cooperative with medics, though became agitated and attempted to bite himself and the medics. He succeeded in biting his left arm, and was given ketamine 100 mg BUNGHOLE BORER with transient efficacy. He arrived very combative and in an agitated and intoxicated state and was temporarily placed in 4 point restraints after attempting to bite EMS. He was given additional geodon 20 mg IM with efficacy. ROS notable for SI, as well as some reported hematuria for at least a month. EKG at 1738. Sinus tachycardia. Heart rate 113. [place] interval of 170 ms. QRS duration of 104 ms. QTC of 475 ms. No STEMI. UDS positive for cannabinoids and ETOH. ETOH was 348. Na 141, K 3.4, BUN 12, Cr 0.8. Glucose 124, Bili 2.4, AST 158, ALT 72, Alkaline phos 218. Albumin 3.3. WBC 6.2, Hb 14.9, Platelets 89. Admitted for further care Past Medical History Cardiovascular: HTN GI: GI bleed, Gastritis, Other Hepatobiliary: Cirrhosis, Other Psych: Anxiety, Addictions, Depression, Schizophrenia, Other Past Surgical History Past Surgical History: No pertinent history Family History Family History: Alcohol Abuse, Hypertension, Family History Unknown, Other Social History Smoke: No ALCOHOL: heavy Drugs: Marijuana Current Medications Current Medications Current Medications Ziprasidone (Geodon Im) 20 mg 1X ONCE IM ; Start 05/10/20 at 16:45; Stop 05/10/20 at 16:46 Active Scripts Active Gabapentin 300 Mg Capsule 300 Mg PO TID 30 Days Propranolol Hcl 10 Mg Tablet 10 Mg PO BID 30 Days Dilaudid (Hydromorphone Hcl) 2 Mg Tablet 2 Mg PO PRN Q8HRS PRN 6 Days Buspirone Hcl 5 Mg Tablet 5 Mg PO PRN TID PRN 30 Days Benztropine Mesylate 0.5 Mg Tablet 1 Tab PO BID 30 Days Geodon (Ziprasidone Hcl) 20 Mg Capsule 20 Mg PO BID 30 Days Trazodone Hcl 100 Mg Tablet 100 Mg PO QHS 30 Days Catapres (Clonidine Hcl) 0.1 Mg Tablet 0.1 Mg PO PRN Q1HR PRN 7 Days Can take for withdrawal symptoms Xifaxan (Rifaximin) 550 Mg Tablet 550 Mg PO Q12HR 30 Days Lactulose 20 Gm/30 Ml Solution 20 Gm PO TID 30 Days Prazosin Hcl 1 Mg Capsule 1 Cap PO QHS 30 Days Pantoprazole Sodium (Pantoprazole Sodium) 40 Mg Tablet.dr 40 Mg PO DAILYAC Multivitamins (Multivitamin) 1 Each Tablet 1 Tab PO DAILY Folic Acid 1 Mg Tablet 1 Tab PO DAILY Vitamin B-1 (Thiamine Hcl) 100 Mg Tablet 100 Mg PO DAILY 30 Days Feosol (Ferrous Sulfate) 325 Mg Tablet 325 Mg PO DAILYWBKFT 30 Days Reported Zyprexa (Olanzapine) 5 Mg Tablet 1 Tab PO QHS Hydroxyzine Hcl 25 Mg Tablet 3 Tab PO TID Allergies Allergies: Coded Allergies: adhesive tape (Verified Allergy, Intermediate, Rash, 02/22/20) ROS General: YES: Fatigue, Malaise; No: Chills, Night Sweats, Appetite, Other PSYCHOLOGICAL ROS: YES: Depression, Hallucinations, Hostility, Irritablity, Sleep disturbances, Suicidal ideation; No: Anxiety, Behavioral Disorder, Concentration difficultie, Decreased libido, Disorientation, Memory difficulties, Mood Swings, Obsessive thoughts, Physical abuse, Sexual abuse, Other Eyes: No Blurry vision, No Decreased vision, No Double vision, No Dry eyes, No Excessive tearing, No Eye Pain, No Itchy Eyes, No Loss of vision, No Photophobia, No Scotomata, No Uses contacts, No Uses glasses, No Other HEENT: No: Heacaches, Visual Changes, Hearing change, Nasal congestion, Nasal d ischarge, Oral lesions, Sinus pain, Sore Throat, Epistaxis, Sneezing, Snoring, Tinnitus, Vertigo, Vocal changes, Other ALLERGY AND IMMUNOLOGY: No: Hives, Insect Bite Sensitivity, Itchy/Watery Eyes, Nasal Congestion, Post Nasal Drip, Seasonal Allergies, Other Hematological and Lymphatic: YES: Bleeding Problems, Blood Transfusions; No: Blood Clots, Brusing, Night Sweats, Pallor, Swollen Lymph Nodes, Other ENDOCRINE: No: Breast Changes, Galactorrhea, Hair Pattern Changes, Hot Flashes, Malaise/lethargy, Mood Swings, Palpitations, Polydipsia/polyuria, Skin Changes, Temperature Intolerance, Unexpected Weight Changes, Other Breast: No New/Changing Breast Lumps, No Nipple changes, No Nipple discharge, No Other Respiratory: No: Cough, Hemoptysis, Orthopnea, Pleuritic Pain, Shortness of breath, SOB with excertion, Sputum Changes, Stridor, Tachypnea, Wheezing, Other Cardiovascular: No Chest Pain, No Palpitations, No Orthopnea, No Paroxysmal Noc. Dyspnea, No Edema, No Lt Headedness, No Other Gastrointestinal: Yes Nausea, Yes Abdominal Pain; No Vomiting, No Diarrhea, No Constipation, No Melena, No Hematochezia, No Other Genitourinary: YES Dysuria, YES Frequency, YES Hematuria; No Incontinence, No Retention, No Discharge, No Urgency, No Pain, No Flank Pain, No Other, No , No , No , No , No , No , No Musculoskeletal: No Gait Disturbance, No Joint Pain, No Joint Stiffness, No Joint Swelling, No Muscle Pain, No Muscular Weakness, No Pain In:, No Swelling In:, No Other Neurological: No Behavorial Changes, No Bowel/Bladder ControlChng, No Confusion, No Dizziness, No Gait Disturbance, No Headaches, No Impaired Coord/balance, No Memory Loss, No Numbness/Tingling, No Seizures, No Speech Problems, No Tremors, No Visual Changes, No Weakness, No Other Skin: No Dry Skin, No Eczema, No Hair Changes, No Lumps, No Mole Changes, No Mottling, No Nail Changes, No Pruritus, No Rash, No Skin Lesion Changes, No Other, No Acne Physical Exam General: Alert, No acute distress, moderate distress, Other (Combative, impulsive, intoxicated) HEENT: Atraumatic, PERRLA, EOMI, Mucous membr. moist/pink Lungs: Clear to auscultation, Normal air movement Heart: S1S2, RRR, no thrills, no rubs, no gallops, no murmurs Abdomen: Normal bowel sounds, Soft, No hepatosplenomegaly, No masses, Other (Epigastric and suprapubic tenderness) Rectal Exam: not examined Extremities: No clubbing, No cyanosis, No edema, Normal pulses, No tenderness/swelling Skin: No rashes, No breakdown, No significant lesion, Other (Scratch on left arm) Neuro: Normal gait, Normal speech, Strength at 5/5 X4 ext, Normal tone, Sensati on intact, Cranial nerves 3-12 NL, Reflexes 2+ Psych/Mental Status: Other (Agitated, intoxicated, psychotic) VTE Prophylaxis Ordered VTE Prophylaxis Devices: No VTE Pharmacological Prophylaxi: Contraindicated Assessment/Plan Assessment/Plan A/P: Suicidal ideation - with plan to stab himself. Psych and PAT team aware. He is acutely intoxicated with labs abnormalities, will need to address medical issues first EtOH abuse - with acute intoxication on admission. CIWA scale, banana bag. Will add gabapentin based on new clinical trial data to help him avoid relapse Hematuria - with apparent UTI, will treat with cipro, f/u cultures. WIll likely need urology f/u. Will send cytology as well Acute alcohol intoxication - will cont CIWA, banana bag Major depression - needs outpatient treatment Acute psychosis - will restart his home medications Acute toxic encephalopathy - ETOH and psychosis Thrombocytopenia - likely related to liver disease, will minimize his exposure to 1st generation anti-psychotics based on this. 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 Will cont his home medications which have helped reduce his hospitalizations Smoker - counseled on cessation Alpha-1 antitrypsin deficiency - MZ mutation - increases his risk of liver disease given his ETOH abuse DJD - pain control Transaminitis - fits ETOH pattern. trend Hepatic cirrhosis and findings of portal hypertension , C/W END ORGAN INJURY. Bilirubin 2.4 Esophageal varices - numerous, Varices with stigmata of recent bleeding; all 3 banded. 02/21 Gallstone lodged at the gallbladder neck, no gallbladder wall thickening - seen by general surgery previously, no indication for surgery Hypokalemia - will replace [Prior admissions to [facility]: 06/21/2017 - 06/25/2017 - Suicidal ideation and alcoholic intoxication. PAT team for suicidal ideation and was [facility]. EGD 06/25/2017 - small varices and patchy portal gastropathy 06/30/2019 - 07/07/2019 - EGD on 07/01/2019 grade 2 varices with scarring, probably from prior banding in the distal third of the esophagus. Two 1-2 mm linear ulcerations were noted in the distal esophagus. Diffuse portal hypertensive gastropathy was also noted. 06/16/2019 - 06/22/2019 - UGIB 06/23/2019 - 09/02/2019 - Suicide attempt, cut wrists and ETOH intoxication, acute psychosis. Involuntarily committed to [facility] 09/10/2019 - 09/14/2019 - ETOH intoxication 09/16/2019 - 09/21/2019 - Wrist cutting, mother called adult protective services. ETOH intoxication 11/02/2019 - 11/03/2019 - GB disease 12/19/2019 - 12/26/2019 - ETOH intoxication, suicidal ideation 01/10/2020 - 01/13/2020 - ETOH intoxication FEN - General diet PPX - SCDs FULL CODE Dispo - inpatient for above Justicifation of Admission Dx: Justifications for Admission: Justification of Admission Dx: Yes Altered Mental Status: Altered Mental Status BENJIE CHANEL MD May 10, 2020 16:45
--- NOTE | 2020-05-10 16:48 | PHYS DOC ---
Past Medical History Past Medical History: Alcoholism, Depression, Schizophrenia, Other Additional Past Medical Histor: TACHYCARDIA, alpha 1 antitrypsin deficiency, DDD,esophogeal varicies (PEMA GALLEGOS H DO) Past Surgical History: Other Additional Past Surgical Histo: esophogeal varicies banding (PEMA GALLEGOS H DO) Smoking Status: Current Some Day Smoker Alcohol Use: Heavy Drug Use: None (PEMA GALLEGOS H DO) General Adult EDM: Chief Complaint: SUICDAL IDEATION HPI: HPI: 30M with PMH of alcoholism, cirrhosis, schizoaffective disorder, p/w SI. Called EMS as he felt the urge to stab himself in the chest to end his life. Initially cooperative with medics, though became agitated and attempted to bite himself and the medics. Received ketamine 100 mg BATCHING OPERATOR with transient efficacy. Arrived combative and in an agitated state, receiving additional geodon 20 mg IM with efficacy. ROS notable for SI, as well as some reported hematuria of unclear duration. (ROSYPEMA H DO) Review of Systems: Review of Systems: ROS limited 2/2 acute agitation/uncooperative. : Reports hematuria. Psych: Reports SI. (ROSY,PEMA H DO) Heart Score: Risk Factors: Risk Factors: DM, Current or recent (<one month) smoker, HTN, HLP, family history of CAD, obesity. Risk Scores: Score 0 - 3: 2.5% MACE over next 6 weeks - Discharge Home Score 4 - 6: 20.3% MACE over next 6 weeks - Admit for Clinical Observation Score 7 - 10: 72.7% MACE over next 6 weeks - Early Invasive Strategies (ROSYPEMA H DO) Allergies: Allergies: Allergies Coded Allergies Type Severity Reaction Last Updated Verified adhesive tape Allergy Intermediate Rash 02/22/20 Yes (ROSYPEMA H DO) Physical Exam: PE: Gen: Agitated, attempting to bite medic in ambulance bay. Head: NC/AT. Eyes: No scleral icterus. No conjunctival injection. PERRL 5 mm. ENT: MMM. Posterior OP clear. Neck: Supple. CV: RRR. Peripheral pulses intact. Resp: CTAB. Abd: Soft. NT. ND. MSK: No peripheral cyanosis. No edema. Neuro: Awake and alert. Skin. Warm. Dry. Psych: Acutely agitated. (LE,PEMA H DO) EKG: EKG: EKG at 1738. Sinus tachycardia. Heart rate 113. [place] interval of 170 ms. QRS duration of 104 ms. QTC of 475 ms. No STEMI. Interpreted by me. (PEMA GALLEGOS DO) Radiology/Procedures: Radiology/Procedures: [] (PEMA GALLEGOS DO) Impression: Pt with suicidal ideations no specific plan, is also intoxicated. On sober reevaluation patient was assessed by the PAT team and recommended inpatient admission. Pt now calm and agrees with this plan. There is a high suspicion patient will develop alcohol withdrawal. Patient has been accepted by Dr. Pretty. (GARDENIA CORDERO DO) Course & Med Decision Making: Course & Med Decision Making Pertinent Labs and Imaging studies reviewed. (See chart for details) Spoke with Lana at 1705 and, given the patient's current inability to participate in psych assessment, will recall once patient is more wakeful. Signed out to Dr. Cordero pending workup, patient wakefulness and ability to participate with psych assessment. (PEMA GALLEGOS DO) Dragon Disclaimer: Dragon Disclaimer: This electronic medical record was generated, in whole or in part, using a voice recognition dictation system. (PEMA GALLEGOS DO) Departure Departure Impression: Primary Impression: Suicidal ideation Additional Impressions: Alcohol intoxication Planning to commit suicide Disposition: ADMITTED INPATIENT Admitting Physician: LEE (GARDENIA CORDERO DO) Condition: STABLE Referrals: UNKNOWN PCP NAME (PCP) Justicifation of Admission Dx: Justifications for Admission: Justification of Admission Dx: N/A (PEMA GALLEGOS DO) Justification of Admission Dx: Yes Comments: suicidal ideations (GARDENIA CORDERO DO) PEMA GALLEGOS DO May 10, 2020 16:48 GARDENIA CORDERO DO May 10, 2020 21:05
[2020-05-10 17:00] LABS: BASO # 0.1 x10^3/uL (0.0-0.2); BASO % 1 % (0-3); EOS # 0.1 x10^3/uL (0.0-0.7); EOS % 1 % (0-3); HEMOGLOBIN 14.9 g/dL (13.0-17.5); LYMPH # 2.1 x10^3/uL (1.0-4.8); LYMPH % 35 % (24-48); MEAN CORPUSCULAR HEMOGLOBIN 32 pg (25-35); MEAN CORPUSCULAR HGB CONC 34 g/dL (31-37); MEAN CORPUSCULAR VOLUME 96 fL (79-100); MONO # 0.5 x10^3/uL (0.0-1.1); MONO % 8 % (0-9); NEUT # 3.4 x10^3/uL (1.8-7.7); NEUT % 56 % (31-73); PLATELET COUNT 89 x10^3/uL (140-400); RED BLOOD COUNT 4.61 x10^6/uL (4.30-5.70); RED CELL DISTRIBUTION WIDTH 17.6 % (11.5-14.5); WHITE BLOOD COUNT 6.2 x10^3/uL (4.0-11.0)
[2020-05-10 17:11] LABS: CALCIUM 7.9 mg/dL (8.5-10.1); CREATININE 0.8 mg/dL (0.7-1.3); GFR 113.5; POTASSIUM 3.4 mmol/L (3.5-5.1)
[2020-05-10 17:16] LABS: ALBUMIN 3.3 g/dL (3.4-5.0); ALBUMIN/GLOBULIN RATIO 0.8 (1.0-1.7); TOTAL BILIRUBIN 2.4 mg/dL (0.2-1.0); TOTAL PROTEIN 7.3 g/dL (6.4-8.2)
[2020-05-10 17:24] LABS: ACETAMIN < 2 mcg/ml (10-30); ETHANOL 348 mg/dL (0-10); SALIC < 2.8 mg/dL (2.8-20.0)
[2020-05-10 17:44] LABS: BILIRUBIN,URINE MODERATE (NEG); CLARITY,URINE CLEAR; COLOR,URINE ORANGE; NITRITE,URINE POSITIVE (NEG); PROTEIN,URINE 100 mg/dL (NEG-TRACE)
[2020-05-10 17:54] LABS: AMPHETAMINE/METHAMPHETAMINE NEG (NEG); BARBITURATES NEG (NEG); BENZODIAZEPINES NEG (NEG); CANNABINOIDS POS (NEG); COCAINE NEG (NEG); METHADONE NEG (NEG); OPIATES NEG (NEG); PHENCYCLIDINE NEG (NEG)
[2020-05-10 18:09] LABS: BACTERIA,URINE FEW /HPF (0-FEW); GRANULAR CASTS,URINE FEW /HPF; HYALINE CASTS, URINE FEW /HPF; SQUAMOUS EPITHELIAL CELL,UR FEW /LPF
[2020-05-10] MEDS ORDERED: cefTRIAXone IV Push 1 GM VIAL. IVP ONE (18:30)
[2020-05-10] MEDS ORDERED: ALPRAZolam 0.5 MG TABLET PO ONE (20:45)
[2020-05-10 22:00] VITALS: BP 147/99
[2020-05-10] MEDS ORDERED: ACETAMINOPHEN 325 MG TABLET. PO ONE (22:15)
[2020-05-10] MEDS ORDERED: LORazepam 1 MG TABLET PO SCH (22:15)
[2020-05-10] MEDS ORDERED: cloNIDine HCL 0.1 MG TABLET PO PRN (22:45)
[2020-05-10] MEDS ORDERED: POTASSIUM CHLORIDE 20 MEQ TABLET.ER. PO ONE (22:45)
[2020-05-10] MEDS: LACTULOSE 20 GM/30 ML SOLUTION. PO SCH (23:00)
[2020-05-10] MEDS ORDERED: OLANZapine 5 MG TABLET PO SCH (23:00)
[2020-05-10] MEDS: PRAZOSIN 1 MG CAPSULE. PO SCH (23:02)
[2020-05-10] MEDS: traZODone 100 MG TABLET. PO SCH (23:03)
[2020-05-10] MEDS: hydrOXYzine 25 MG TABLET PO SCH (23:03)
[2020-05-10] MEDS: GABAPENTIN 300 MG CAPSULE. PO SCH (23:03)
[2020-05-10] MEDS: BENZTROPINE MESYLATE 1 MG TABLET. PO SCH (23:04)
[2020-05-10] MEDS: PROPRANOLOL 10 MG TABLET. PO SCH (23:05)
[2020-05-10] MEDS: ZIPRASIDONE 20 MG CAPSULE PO SCH (23:05)
[2020-05-10] MEDS: MUPIROCIN 2 % TOPICAL CREAM 30GM TUBE. TP SCH (23:06)
[2020-05-10] MEDS: CIPROFLOXACIN 200MG PREMIX 100 ML IV SCH (23:21)
[2020-05-11 03:00] VITALS: BP 114/96
--- NOTE | 2020-05-11 04:25 | NUR ---
Patient arrived to unit at approx 2200 on 05/10/20 accompanied by radiologic technologist. VS stable, Assessment complete. Patient has small cut on left arm from trying to bite himself in the ED. Patient stated "I called EMS because I felt the urge to stab myself in the chest with a knife, or cut myself" also stated "i feel hopeless like i have nothing going for me, I don't have a job". Pt stated that he had quit drinking for about 2 months but then started again about a week ago. Stated that he drank 1-2 pints of vodka today. Is an occasional smoker. Pt reports 05/10 pain in abd. Pt also stated that he stopped taking most of his medications because he forgets to take pills. Pt reports that he saw a physician outside of [facility] that perscribed a once a month IM injection of Invega Sustenna 234mg /1.5 mL . States that he liked that because he "wouldn't forget to take it". Suicide Risk Room Assessment completed on admission. All belongings labeled and out at the nurses station. pt calm and cooperative, CIWA complete. Patient resting on RA. Will continue to monitor. 1:1 at bedside.
[2020-05-11 05:04] LABS: BASO % 1 % (0-3); EOS # 0.1 x10^3/uL (0.0-0.7); EOS % 2 % (0-3); HEMATOCRIT 37.7 % (39.0-53.0); LYMPH # 1.7 x10^3/uL (1.0-4.8); LYMPH % 42 % (24-48); MEAN CORPUSCULAR HEMOGLOBIN 33 pg (25-35); MEAN CORPUSCULAR HGB CONC 34 g/dL (31-37); MEAN CORPUSCULAR VOLUME 95 fL (79-100); MONO # 0.4 x10^3/uL (0.0-1.1); MONO % 10 % (0-9); NEUT # 1.9 x10^3/uL (1.8-7.7); NEUT % 45 % (31-73); PLATELET COUNT 66 x10^3/uL (140-400); RED BLOOD COUNT 3.97 x10^6/uL (4.30-5.70); RED CELL DISTRIBUTION WIDTH 17.3 % (11.5-14.5); WHITE BLOOD COUNT 4.1 x10^3/uL (4.0-11.0)
[2020-05-11 05:31] LABS: ALBUMIN 2.8 g/dL (3.4-5.0); ALBUMIN/GLOBULIN RATIO 0.8 (1.0-1.7); CALCIUM 7.6 mg/dL (8.5-10.1); CREATININE 0.8 mg/dL (0.7-1.3); GFR 113.5; MAGNESIUM 1.6 mg/dL (1.8-2.4); POTASSIUM 3.9 mmol/L (3.5-5.1); TOTAL BILIRUBIN 2.6 mg/dL (0.2-1.0); TOTAL PROTEIN 6.3 g/dL (6.4-8.2)
--- NOTE | 2020-05-11 06:38 | EKG ---
[facility] [address] [place] [address] Test Date: 2020-05-10 Test Time: 17:38:44 Pat Name: DENISHA MCFARLAND Department: Room: 256 1 Gender: M Frame Aligner: : 1990 Requested By: PEMA GALLEGOS Order Number: [id number] Reading MD: Mariano Marlow Measurements Intervals Minter Rate: 113 P: 106 DE: 170 QRS: 3 QRSD: 104 T: 27 QT: 342 QTc: 475 Interpretive Statements SINUS TACHYCARDIA Electronically Signed On 05-12-2020 16:30:30 CDT by Mariano Marlow
[2020-05-11 07:00] VITALS: BP 108/55
--- NOTE | 2020-05-11 08:10 | PDOC ---
PROGRESS NOTES Chief Complaint Chief Complaint A/P: Suicidal ideation - with plan to stab himself. Psych and PAT team aware. He is acutely intoxicated with labs abnormalities, will need to address medical issues first EtOH abuse - with acute intoxication on admission. georgi Silvestre bag. Will add gabapentin based on new clinical trial data to help him avoid relapse Hematuria - with apparent UTI, will treat with cipro, f/u cultures. WIll likely need urology f/u. Will send cytology as well Acute alcohol intoxication - will cont georgi DUNN bag Major depression - needs outpatient treatment Acute psychosis - will restart his home medications Acute toxic encephalopathy - ETOH and psychosis Thrombocytopenia - likely related to liver disease, will minimize his exposure to 1st generation anti-psychotics based on this. 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 Will cont his home medications which have helped reduce his hospitalizations Smoker - counseled on cessation Alpha-1 antitrypsin deficiency - MZ mutation - increases his risk of liver disease given his ETOH abuse DJD - pain control Transaminitis - fits ETOH pattern. trend Hepatic cirrhosis and findings of portal hypertension , C/W END ORGAN INJURY. Bilirubin 2.4 Esophageal varices - numerous, Varices with stigmata of recent bleeding; all 3 banded. 02/21 Gallstone lodged at the gallbladder neck, no gallbladder wall thickening - seen by general surgery previously, no indication for surgery Hypokalemia - will replace [Prior admissions to [facility]: 06/21/2017 - 06/25/2017 - Suicidal ideation and alcoholic intoxication. PAT team for suicidal ideation and [facility]. EGD 06/25/2017 - small varices and patchy portal gastropathy 06/30/2019 - 07/07/2019 - EGD on 07/01/2019 grade 2 varices with scarring, probably from prior banding in the distal third of the esophagus. Two 1-2 mm linear ulcerations were noted in the distal esophagus. Diffuse portal hypertensive gastropathy was also noted. 06/16/2019 - 06/22/2019 - UGIB 06/23/2019 - 09/02/2019 - Suicide attempt, cut wrists and ETOH intoxication, acute psychosis. Involuntarily committed to [facility] 09/10/2019 - 09/14/2019 - ETOH intoxication 09/16/2019 - 09/21/2019 - Wrist cutting, mother called adult protective services. ETOH intoxication 11/02/2019 - 11/03/2019 - GB disease 12/19/2019 - 12/26/2019 - ETOH intoxication, suicidal ideation 01/10/2020 - 01/13/2020 - ETOH intoxication FEN - General diet PPX - SCDs FULL CODE Dispo - inpatient for above History of Present Illness History of Present Illness Mr Dsouza is a 30yo M w/ PMHx schizophrenia, multiple suicidal attempts (6 in t he past year at [facility]), alcohol abuse, DJD, smoker, alpha-1 antitrypsin deficiency (MZ phenotype), and cirrhosis of the liver with variceal banding who p/w suicidal ideation. He called 911 as he felt the urge to stab himself in the chest to end his life. Initially cooperative with medics, though became agitated and attempted to bite himself and the medics. He succeeded in biting his left arm, and was given ketamine 100 mg PROGRAM STRATEGIST with transient efficacy. He arrived very combative and in an agitated and intoxicated state and was temporarily placed in 4 point restraints after attempting to bite EMS. He was given additional geodon 20 mg IM with efficacy. ROS notable for SI, as well as some reported hematuria for at least a month. EKG at 1738. Sinus tachycardia. Heart rate 113. DC interval of 170 ms. QRS duration of 104 ms. QTC of 475 ms. No STEMI. UDS positive for cannabinoids and ETOH. ETOH was 348. Na 141, K 3.4, BUN 12, Cr 0.8. Glucose 124, Bili 2.4, AST 158, ALT 72, Alkaline phos 218. Albumin 3.3. WBC 6.2, Hb 14.9, Platelets 89. Admitted for further care Overnight more calm. Mg 1.6 today.Platelets 66. He still endorses suicidal ideation. He is a bit confused complaining of suprapubic pain. No further urine out yet this morning. Still on one-to-one sitter. Vitals Vitals Vital Signs Date Time Temp Pulse Resp B/P (MAP) Pulse Ox O2 Delivery O2 Flow Rate FiO2 05/11/20 07:00 98.9 93 16 108/55 (72) 91 Nasal Cannula 2.0 98.9 Physical Exam General: Alert, No acute distress, moderate distress, Other (Combative, impulsive, intoxicated) Lungs: Clear Abdomen: Normal bowel sounds, Soft, No hepatosplenomegaly, No masses, Other (Epigastric and suprapubic tenderness) Extremities: No clubbing, No cyanosis, No edema, Normal pulses, No tenderness/swelling Skin: No rashes, No breakdown, No significant lesion, Other (Scratch on left arm) Labs LABS Laboratory Tests Test 05/10/20 16:50 05/10/20 17:30 05/11/20 04:05 White Blood Count 6.2 x10^3/uL (4.0-11.0) 4.1 x10^3/uL (4.0-11.0) Red Blood Count 4.61 x10^6/uL (4.30-5.70) 3.97 x10^6/uL (4.30-5.70) Hemoglobin 14.9 g/dL (13.0-17.5) 13.0 g/dL (13.0-17.5) Hematocrit 44.0 % (39.0-53.0) 37.7 % (39.0-53.0) Mean Corpuscular Volume 96 fL (79-100) 95 fL (79-100) Mean Corpuscular Hemoglobin 32 pg (25-35) 33 pg (25-35) Mean Corpuscular Hemoglobin Concent 34 g/dL (31-37) 34 g/dL (31-37) Red Cell Distribution Width 17.6 % (11.5-14.5) 17.3 % (11.5-14.5) Platelet Count 89 x10^3/uL (140-400) 66 x10^3/uL (140-400) Neutrophils (%) (Auto) 56 % (31-73) 45 % (31-73) Lymphocytes (%) (Auto) 35 % (24-48) 42 % (24-48) Monocytes (%) (Auto) 8 % (0-9) 10 % (0-9) Eosinophils (%) (Auto) 1 % (0-3) 2 % (0-3) Basophils (%) (Auto) 1 % (0-3) 1 % (0-3) Neutrophils # (Auto) 3.4 x10^3/uL (1.8-7.7) 1.9 x10^3/uL (1.8-7.7) Lymphocytes # (Auto) 2.1 x10^3/uL (1.0-4.8) 1.7 x10^3/uL (1.0-4.8) Monocytes # (Auto) 0.5 x10^3/uL (0.0-1.1) 0.4 x10^3/uL (0.0-1.1) Eosinophils # (Auto) 0.1 x10^3/uL (0.0-0.7) 0.1 x10^3/uL (0.0-0.7) Basophils # (Auto) 0.1 x10^3/uL (0.0-0.2) 0.0 x10^3/uL (0.0-0.2) Sodium Level 141 mmol/L (136-145) 141 mmol/L (136-145) Potassium Level 3.4 mmol/L (3.5-5.1) 3.9 mmol/L (3.5-5.1) Chloride Level 104 mmol/L (98-107) 105 mmol/L (98-107) Carbon Dioxide Level 25 mmol/L (21-32) 30 mmol/L (21-32) Anion Gap 12 (6-14) 6 (6-14) Blood Urea Nitrogen 8 mg/dL (8-26) 9 mg/dL (8-26) Creatinine 0.8 mg/dL (0.7-1.3) 0.8 mg/dL (0.7-1.3) Estimated GFR (Cockcroft-Gault) 113.5 113.5 BUN/Creatinine Ratio 10 (6-20) 11 (6-20) Glucose Level 124 mg/dL (70-99) 104 mg/dL (70-99) Calcium Level 7.9 mg/dL (8.5-10.1) 7.6 mg/dL (8.5-10.1) Total Bilirubin 2.4 mg/dL (0.2-1.0) 2.6 mg/dL (0.2-1.0) Aspartate Amino Transf (AST/SGOT) 158 U/L (15-37) 149 U/L (15-37) Alanine Aminotransferase (ALT/SGPT) 72 U/L (16-63) 69 U/L (16-63) Alkaline Phosphatase 218 U/L (46-116) 192 U/L (46-116) Total Protein 7.3 g/dL (6.4-8.2) 6.3 g/dL (6.4-8.2) Albumin 3.3 g/dL (3.4-5.0) 2.8 g/dL (3.4-5.0) Albumin/Globulin Ratio 0.8 (1.0-1.7) 0.8 (1.0-1.7) Salicylates Level < 2.8 mg/dL (2.8-20.0) Salicylate Last Dose Date Unk Salicylate Last Dose Time Unk Acetaminophen Level < 2 mcg/ml (10-30) Acetaminophen Last Dose Date Unk Acetaminophen Last Dose Time Unk Ethyl Alcohol Level 348 mg/dL (0-10) Urine Collection Type U cath Urine Color [place] Urine Clarity Clear Urine pH 6.0 (<5.0-8.0) Urine Specific [place] >=1.030 (1.000-1.030) Urine Protein 100 mg/dL (NEG-TRACE) Urine Glucose (UA) Negative mg/dL (NEG) Urine Ketones (Stick) Trace mg/dL (NEG) Urine Blood Negative (NEG) Urine Nitrite Positive (NEG) Urine Bilirubin Moderate (NEG) Urine Urobilinogen Dipstick 1.0 mg/dL (0.2 mg/dL) Urine Leukocyte Esterase Trace (NEG) Urine RBC 1-2 /HPF (0-2) Urine WBC 1-4 /HPF (0-4) Urine Squamous Epithelial Cells Few /LPF Urine Bacteria Few /HPF (0-FEW) Urine Hyaline Casts Few /HPF Urine Granular Casts Few /HPF Urine Mucus Slight /LPF Urine Opiates Screen Neg (NEG) Urine Methadone Screen Neg (NEG) Urine Barbiturates Neg (NEG) Urine Phencyclidine Screen Neg (NEG) Urine Amphetamine/Methamphetamine Neg (NEG) Urine Benzodiazepines Screen Neg (NEG) Urine Cocaine Screen Neg (NEG) Urine Cannabinoids Screen Pos (NEG) Urine Ethyl Alcohol Pos (NEG) Magnesium Level 1.6 mg/dL (1.8-2.4) Assessment and Plan Assessmemt and Plan Problems Medical Problems: (1) Alcohol intoxication Status: Chronic (2) Planning to commit suicide Status: Acute (3) Suicidal ideation Status: Acute Comment Review of Relevant I have reviewed the following items mc (where applicable) has been applied. Labs Laboratory Tests Test 05/10/20 16:50 05/10/20 17:30 05/11/20 04:05 White Blood Count 6.2 x10^3/uL (4.0-11.0) 4.1 x10^3/uL (4.0-11.0) Red Blood Count 4.61 x10^6/uL (4.30-5.70) 3.97 x10^6/uL (4.30-5.70) Hemoglobin 14.9 g/dL (13.0-17.5) 13.0 g/dL (13.0-17.5) Hematocrit 44.0 % (39.0-53.0) 37.7 % (39.0-53.0) Mean Corpuscular Volume 96 fL (79-100) 95 fL (79-100) Mean Corpuscular Hemoglobin 32 pg (25-35) 33 pg (25-35) Mean Corpuscular Hemoglobin Concent 34 g/dL (31-37) 34 g/dL (31-37) Red Cell Distribution Width 17.6 % (11.5-14.5) 17.3 % (11.5-14.5) Platelet Count 89 x10^3/uL (140-400) 66 x10^3/uL (140-400) Neutrophils (%) (Auto) 56 % (31-73) 45 % (31-73) Lymphocytes (%) (Auto) 35 % (24-48) 42 % (24-48) Monocytes (%) (Auto) 8 % (0-9) 10 % (0-9) Eosinophils (%) (Auto) 1 % (0-3) 2 % (0-3) Basophils (%) (Auto) 1 % (0-3) 1 % (0-3) Neutrophils # (Auto) 3.4 x10^3/uL (1.8-7.7) 1.9 x10^3/uL (1.8-7.7) Lymphocytes # (Auto) 2.1 x10^3/uL (1.0-4.8) 1.7 x10^3/uL (1.0-4.8) Monocytes # (Auto) 0.5 x10^3/uL (0.0-1.1) 0.4 x10^3/uL (0.0-1.1) Eosinophils # (Auto) 0.1 x10^3/uL (0.0-0.7) 0.1 x10^3/uL (0.0-0.7) Basophils # (Auto) 0.1 x10^3/uL (0.0-0.2) 0.0 x10^3/uL (0.0-0.2) Sodium Level 141 mmol/L (136-145) 141 mmol/L (136-145) Potassium Level 3.4 mmol/L (3.5-5.1) 3.9 mmol/L (3.5-5.1) Chloride Level 104 mmol/L (98-107) 105 mmol/L (98-107) Carbon Dioxide Level 25 mmol/L (21-32) 30 mmol/L (21-32) Anion Gap 12 (6-14) 6 (6-14) Blood Urea Nitrogen 8 mg/dL (8-26) 9 mg/dL (8-26) Creatinine 0.8 mg/dL (0.7-1.3) 0.8 mg/dL (0.7-1.3) Estimated GFR (Cockcroft-Gault) 113.5 113.5 BUN/Creatinine Ratio 10 (6-20) 11 (6-20) Glucose Level 124 mg/dL (70-99) 104 mg/dL (70-99) Calcium Level 7.9 mg/dL (8.5-10.1) 7.6 mg/dL (8.5-10.1) Total Bilirubin 2.4 mg/dL (0.2-1.0) 2.6 mg/dL (0.2-1.0) Aspartate Amino Transf (AST/SGOT) 158 U/L (15-37) 149 U/L (15-37) Alanine Aminotransferase (ALT/SGPT) 72 U/L (16-63) 69 U/L (16-63) Alkaline Phosphatase 218 U/L (46-116) 192 U/L (46-116) Total Protein 7.3 g/dL (6.4-8.2) 6.3 g/dL (6.4-8.2) Albumin 3.3 g/dL (3.4-5.0) 2.8 g/dL (3.4-5.0) Albumin/Globulin Ratio 0.8 (1.0-1.7) 0.8 (1.0-1.7) Salicylates Level < 2.8 mg/dL (2.8-20.0) Salicylate Last Dose Date Unk Salicylate Last Dose Time Unk Acetaminophen Level < 2 mcg/ml (10-30) Acetaminophen Last Dose Date Unk Acetaminophen Last Dose Time Unk Ethyl Alcohol Level 348 mg/dL (0-10) Urine Collection Type U cath Urine Color [place] Urine Clarity Clear Urine pH 6.0 (<5.0-8.0) Urine Specific [place] >=1.030 (1.000-1.030) Urine Protein 100 mg/dL (NEG-TRACE) Urine Glucose (UA) Negative mg/dL (NEG) Urine Ketones (Stick) Trace mg/dL (NEG) Urine Blood Negative (NEG) Urine Nitrite Positive (NEG) Urine Bilirubin Moderate (NEG) Urine Urobilinogen Dipstick 1.0 mg/dL (0.2 mg/dL) Urine Leukocyte Esterase Trace (NEG) Urine RBC 1-2 /HPF (0-2) Urine WBC 1-4 /HPF (0-4) Urine Squamous Epithelial Cells Few /LPF Urine Bacteria Few /HPF (0-FEW) Urine Hyaline Casts Few /HPF Urine Granular Casts Few /HPF Urine Mucus Slight /LPF Urine Opiates Screen Neg (NEG) Urine Methadone Screen Neg (NEG) Urine Barbiturates Neg (NEG) Urine Phencyclidine Screen Neg (NEG) Urine Amphetamine/Methamphetamine Neg (NEG) Urine Benzodiazepines Screen Neg (NEG) Urine Cocaine Screen Neg (NEG) Urine Cannabinoids Screen Pos (NEG) Urine Ethyl Alcohol Pos (NEG) Magnesium Level 1.6 mg/dL (1.8-2.4) Laboratory Tests Test 05/10/20 16:50 05/10/20 17:30 05/11/20 04:05 White Blood Count 6.2 x10^3/uL (4.0-11.0) 4.1 x10^3/uL (4.0-11.0) Red Blood Count 4.61 x10^6/uL (4.30-5.70) 3.97 x10^6/uL (4.30-5.70) Hemoglobin 14.9 g/dL (13.0-17.5) 13.0 g/dL (13.0-17.5) Hematocrit 44.0 % (39.0-53.0) 37.7 % (39.0-53.0) Mean Corpuscular Volume 96 fL (79-100) 95 fL (79-100) Mean Corpuscular Hemoglobin 32 pg (25-35) 33 pg (25-35) Mean Corpuscular Hemoglobin Concent 34 g/dL (31-37) 34 g/dL (31-37) Red Cell Distribution Width 17.6 % (11.5-14.5) 17.3 % (11.5-14.5) Platelet Count 89 x10^3/uL (140-400) 66 x10^3/uL (140-400) Neutrophils (%) (Auto) 56 % (31-73) 45 % (31-73) Lymphocytes (%) (Auto) 35 % (24-48) 42 % (24-48) Monocytes (%) (Auto) 8 % (0-9) 10 % (0-9) Eosinophils (%) (Auto) 1 % (0-3) 2 % (0-3) Basophils (%) (Auto) 1 % (0-3) 1 % (0-3) Neutrophils # (Auto) 3.4 x10^3/uL (1.8-7.7) 1.9 x10^3/uL (1.8-7.7) Lymphocytes # (Auto) 2.1 x10^3/uL (1.0-4.8) 1.7 x10^3/uL (1.0-4.8) Monocytes # (Auto) 0.5 x10^3/uL (0.0-1.1) 0.4 x10^3/uL (0.0-1.1) Eosinophils # (Auto) 0.1 x10^3/uL (0.0-0.7) 0.1 x10^3/uL (0.0-0.7) Basophils # (Auto) 0.1 x10^3/uL (0.0-0.2) 0.0 x10^3/uL (0.0-0.2) Sodium Level 141 mmol/L (136-145) 141 mmol/L (136-145) Potassium Level 3.4 mmol/L (3.5-5.1) 3.9 mmol/L (3.5-5.1) Chloride Level 104 mmol/L (98-107) 105 mmol/L (98-107) Carbon Dioxide Level 25 mmol/L (21-32) 30 mmol/L (21-32) Anion Gap 12 (6-14) 6 (6-14) Blood Urea Nitrogen 8 mg/dL (8-26) 9 mg/dL (8-26) Creatinine 0.8 mg/dL (0.7-1.3) 0.8 mg/dL (0.7-1.3) Estimated GFR (Cockcroft-Gault) 113.5 113.5 BUN/Creatinine Ratio 10 (6-20) 11 (6-20) Glucose Level 124 mg/dL (70-99) 104 mg/dL (70-99) Calcium Level 7.9 mg/dL (8.5-10.1) 7.6 mg/dL (8.5-10.1) Total Bilirubin 2.4 mg/dL (0.2-1.0) 2.6 mg/dL (0.2-1.0) Aspartate Amino Transf (AST/SGOT) 158 U/L (15-37) 149 U/L (15-37) Alanine Aminotransferase (ALT/SGPT) 72 U/L (16-63) 69 U/L (16-63) Alkaline Phosphatase 218 U/L (46-116) 192 U/L (46-116) Total Protein 7.3 g/dL (6.4-8.2) 6.3 g/dL (6.4-8.2) Albumin 3.3 g/dL (3.4-5.0) 2.8 g/dL (3.4-5.0) Albumin/Globulin Ratio 0.8 (1.0-1.7) 0.8 (1.0-1.7) Salicylates Level < 2.8 mg/dL (2.8-20.0) Salicylate Last Dose Date Unk Salicylate Last Dose Time Unk Acetaminophen Level < 2 mcg/ml (10-30) Acetaminophen Last Dose Date Unk Acetaminophen Last Dose Time Unk Ethyl Alcohol Level 348 mg/dL (0-10) Urine Collection Type U cath Urine Color [place] Urine Clarity Clear Urine pH 6.0 (<5.0-8.0) Urine Specific [place] >=1.030 (1.000-1.030) Urine Protein 100 mg/dL (NEG-TRACE) Urine Glucose (UA) Negative mg/dL (NEG) Urine Ketones (Stick) Trace mg/dL (NEG) Urine Blood Negative (NEG) Urine Nitrite Positive (NEG) Urine Bilirubin Moderate (NEG) Urine Urobilinogen Dipstick 1.0 mg/dL (0.2 mg/dL) Urine Leukocyte Esterase Trace (NEG) Urine RBC 1-2 /HPF (0-2) Urine WBC 1-4 /HPF (0-4) Urine Squamous Epithelial Cells Few /LPF Urine Bacteria Few /HPF (0-FEW) Urine Hyaline Casts Few /HPF Urine Granular Casts Few /HPF Urine Mucus Slight /LPF Urine Opiates Screen Neg (NEG) Urine Methadone Screen Neg (NEG) Urine Barbiturates Neg (NEG) Urine Phencyclidine Screen Neg (NEG) Urine Amphetamine/Methamphetamine Neg (NEG) Urine Benzodiazepines Screen Neg (NEG) Urine Cocaine Screen Neg (NEG) Urine Cannabinoids Screen Pos (NEG) Urine Ethyl Alcohol Pos (NEG) Magnesium Level 1.6 mg/dL (1.8-2.4) Medications Current Medications Ziprasidone (Geodon Im) 20 mg 1X ONCE IM Last administered on 05/10/20at 16:35; Start 05/10/20 at 16:45; Stop 05/10/20 at 16:46; Status DC Ceftriaxone Sodium (Rocephin) 1 gm 1X ONCE IVP Last administered on 05/10/20at 21:00; Start 05/10/20 at 18:30; Stop 05/10/20 at 18:31; Status DC Alprazolam (Xanax) 0.5 mg 1X ONCE PO ; Start 05/10/20 at 20:45; Stop 05/10/20 at 20:46; Status DC Acetaminophen (Tylenol) 650 mg 1X ONCE PO Last administered on 05/10/20at 22:33; Start 05/10/20 at 22:15; Stop 05/10/20 at 22:16; Status DC Multivitamins (Thera M Plus) 1 tab DAILY PO ; Start 05/15/20 at 09:00 Folic Acid (Folic Acid) 1 mg DAILY PO ; Start 05/15/20 at 09:00 Thiamine Mononitrate (Vitamin B-1) 100 mg DAILY PO ; Start 05/15/20 at 09:00 Lorazepam (Ativan) 2 mg Q6H PO Last administered on 05/10/20at 22:33; Start 05/10/20 at 22:15; Stop 05/11/20 at 01:56; Status DC Buspirone HCl (Buspar) 5 mg PRN TID PRN PO Anxiety; Start 05/10/20 at 22:45 Clonidine HCl (Catapres) 0.1 mg PRN Q1HR PRN PO SBP > 180 or DBP > 100, MRX3; Start 05/10/20 at 22:45 Ferrous Sulfate (Feosol) 325 mg DAILYWBKFT PO ; Start 05/11/20 at 08:00 Folic Acid (Folic Acid) 1 mg DAILY PO ; Start 05/11/20 at 09:00; Stop 05/10/20 at 22:45; Status DC Gabapentin (Neurontin) 300 mg TID PO Last administered on 05/10/20at 23:03; St art 05/10/20 at 23:00 Hydroxyzine HCl (Atarax) 75 mg TID PO Last administered on 05/10/20at 23:03; Start 05/10/20 at 23:00 Lactulose (Lactulose) 20 gm TID PO ; Start 05/10/20 at 23:00 Olanzapine (ZyPREXA) 5 mg QHS PO Last administered on 05/10/20at 23:02; Start 05/10/20 at 23:00 Pantoprazole Sodium (Protonix) 40 mg DAILYAC PO ; Start 05/11/20 at 07:30 Prazosin HCl (Minipress) 1 mg QHS PO Last administered on 05/10/20at 23:02; Start 05/10/20 at 23:00 Propranolol HCl (Inderal) 10 mg BID PO Last administered on 05/10/20at 23:05; Start 05/10/20 at 23:00 Trazodone HCl (Desyrel) 100 mg QHS PO Last administered on 05/10/20at 23:03; Start 05/10/20 at 23:00 Ziprasidone (Geodon) 20 mg BID PO Last administered on 05/10/20at 23:05; Start 05/10/20 at 23:00 Benztropine Mesylate (Cogentin) 0.5 mg BID PO Last administered on 05/10/20at 23:04; Start 05/10/20 at 23:00 Non-Formulary Medication (Multivitamin (Multivitamins)) 1 tab DAILY PO ; Start 05/11/20 at 09:00; Stop 05/10/20 at 22:50; Status DC Non-Formulary Medication (Thiamine Hcl (Vitamin B-1)) 100 mg DAILY PO ; Start 05/11/20 at 09:00; Status UNV Lorazepam (Ativan) 2 mg PRN Q1HR PRN PO For CIWA 8-14; Start 05/10/20 at 22:45 Lorazepam (Ativan Inj) 1 mg PRN Q1HR PRN IV For CIWA 8-14 Last administered on 05/10/20at 23:47; Start 05/10/20 at 22:45 Mupirocin (Bactroban) 1 yola TID TP Last administered on 05/10/20at 23:06; Start 05/10/20 at 22:45 Potassium Chloride (Klor-Con) 40 meq 1X ONCE PO Last administered on 05/10/20at 23:03; Start 05/10/20 at 22:45; Stop 05/10/20 at 22:54; Status DC Ciprofloxacin/ Dextrose 100 ml @ 100 mls/hr Q12HR IV Last administered on 05/10/20at 23:21; Start 05/10/20 at 23:00 Hydromorphone HCl (Dilaudid) 2 mg PRN Q8HRS PRN PO PAIN; Start 05/10/20 at 23:15 Active Scripts Active Gabapentin 300 Mg Capsule 300 Mg PO TID 30 Days Propranolol Hcl 10 Mg Tablet 10 Mg PO BID 30 Days Dilaudid (Hydromorphone Hcl) 2 Mg Tablet 2 Mg PO PRN Q8HRS PRN 6 Days Buspirone Hcl 5 Mg Tablet 5 Mg PO PRN TID PRN 30 Days Benztropine Mesylate 0.5 Mg Tablet 1 Tab PO BID 30 Days Geodon (Ziprasidone Hcl) 20 Mg Capsule 20 Mg PO BID 30 Days Trazodone Hcl 100 Mg Tablet 100 Mg PO QHS 30 Days Catapres (Clonidine Hcl) 0.1 Mg Tablet 0.1 Mg PO PRN Q1HR PRN 7 Days Can take for withdrawal symptoms Xifaxan (Rifaximin) 550 Mg Tablet 550 Mg PO Q12HR 30 Days Lactulose 20 Gm/30 Ml Solution 20 Gm PO TID 30 Days Prazosin Hcl 1 Mg Capsule 1 Cap PO QHS 30 Days Pantoprazole Sodium (Pantoprazole Sodium) 40 Mg Tablet.dr 40 Mg PO DAILYAC Multivitamins (Multivitamin) 1 Each Tablet 1 Tab PO DAILY Folic Acid 1 Mg Tablet 1 Tab PO DAILY Vitamin B-1 (Thiamine Hcl) 100 Mg Tablet 100 Mg PO DAILY 30 Days Feosol (Ferrous Sulfate) 325 Mg Tablet 325 Mg PO DAILYWBKFT 30 Days Reported Zyprexa (Olanzapine) 5 Mg Tablet 1 Tab PO QHS Hydroxyzine Hcl 25 Mg Tablet 3 Tab PO TID Vitals/I & O Vital Sign - Last 24 Hours 05/10/20 05/10/20 05/10/20 05/10/20 16:30 17:07 18:06 18:35 Temp 98.1 98.1 Pulse 111 121 112 96 Resp 28 19 12 20 B/P (MAP) 154/92 (112) 139/80 (99) 139/85 (103) 154/69 (97) Pulse Ox 98 94 96 O2 Delivery Room Air Room Air Room Air Room Air 05/10/20 05/10/20 05/10/20 05/10/20 19:20 20:35 21:42 22:00 Temp 97.9 97.9 Pulse 104 84 100 94 Resp 14 14 13 18 B/P (MAP) 156/82 (106) 142/75 (97) 160/88 (112) 147/99 (115) Pulse Ox 94 97 90 94 O2 Delivery Room Air Room Air Room Air Room Air 05/10/20 05/10/20 05/10/20 05/11/20 22:00 23:02 23:05 03:00 Temp 98.3 98.3 Pulse 106 106 95 Resp 16 B/P (MAP) 157/84 157/84 114/96 (102) Pulse Ox 92 O2 Delivery Room Air Nasal Cannula O2 Flow Rate 2.0 05/11/20 07:00 Temp 98.9 98.9 Pulse 93 Resp 16 B/P (MAP) 108/55 (72) Pulse Ox 91 O2 Delivery Nasal Cannula O2 Flow Rate 2.0 Intake and Output 05/10/20 05/10/20 05/11/20 15:00 23:00 07:00 Intake Total 2385 ml Balance 2385 ml BENJIE CHANEL MD May 11, 2020 08:10
[2020-05-11] MEDS ORDERED: MAGNESIUM SULFATE 4GM 100 ML IV ONE (08:15)
[2020-05-11] MEDS: CIPROFLOXACIN 200MG PREMIX 100 ML IV SCH ×2 (08:31→21:25)
--- NOTE | 2020-05-11 08:50 | NUR ---
SS following for discharge planning. SS reviewed pt chart and discussed with pt RN. Pt is from home and admitted for suicidal ideation and ETOH. Pt positive for ETOH and THC. PAT team referral made for assessment and recommendations. order planner assisting in following. SS will continue to follow along with finished goods planner.
[2020-05-11] MEDS ORDERED: FOLIC ACID 1 MG TABLET. PO SCH (09:00)
[2020-05-11] MEDS ORDERED: NON FORMULARY ITEM (Multivitamin (Multivitamins) 1 TAB) PO SCH (09:00)
[2020-05-11] MEDS ORDERED: THIAMINE HCL 100 MG PO SCH (09:00)
[2020-05-11] MEDS: MUPIROCIN 2 % TOPICAL CREAM 30GM TUBE. TP SCH ×3 (09:15→21:25)
[2020-05-11] MEDS: hydrOXYzine 25 MG TABLET PO SCH ×3 (09:16→21:25)
[2020-05-11] MEDS: ZIPRASIDONE 20 MG CAPSULE PO SCH (09:16)
[2020-05-11] MEDS: PANTOPRAZOLE 40 MG TABLET.DR. PO SCH (09:17)
[2020-05-11] MEDS: PROPRANOLOL 10 MG TABLET. PO SCH ×2 (09:17→21:26)
[2020-05-11] MEDS: GABAPENTIN 300 MG CAPSULE. PO SCH ×3 (09:17→21:25)
[2020-05-11] MEDS: BENZTROPINE MESYLATE 1 MG TABLET. PO SCH ×2 (09:17→21:25)
[2020-05-11] MEDS: FERROUS SULFATE 325 MG TABLET. PO SCH (09:17)
[2020-05-11] MEDS: LACTULOSE 20 GM/30 ML SOLUTION. PO SCH ×3 (09:19→21:25)
--- NOTE | 2020-05-11 10:43 | PDOC2 ---
GI CONSULT Reason For Consult: Alcoholic hepatitis HPI: HPI: 30 y/o male who we've seen many times. To ER yesterday w/ SI, apparently combative, biting, requiring restraints. No meaningful history from his this morning. No GI concerns per nurse or 1:1 sitter. ER documentation mentions "bladder pain" and "hematuria." H/o alcoholic cirrhosis w/ +AAT MZ phenotype, cholelithiasis, chronic abd pain, GI bleeding, and psych issues. Usually requests pain medication and EGD. EGD on 07/01/19 showed Grade II varices w/ scarring probably from prior banding in distal third of esophagus, two 1-2mm linear ulcerations w/ friability in distal esophagus (?M-W), irregular SQ junction w/ GERD, no convincing site or major bleeding, diffuse portal hypertensive gastropathy, no gastric varices, no ulcer, normal duodenum. EGD on 02/22/20 showed grade III varices mid/distal esophagus (larger after rehydration?) - 3 with white thrombus at tips - all 3 banded, retained liquid - grossly broth - hard to see his portal hypertensive gastropathy secondary to this, normal duodenum. Latest CT A/P in 12/2019 noted hypodense liver lesions. AFP was normal and CEA was elevated (6.4). Hepatitis panel negative 08/2019. LFTs chronically elevated, chronic thrombocytopenia and coagulopathy, also some elevation in ammonia in the past. H/o GERD - last time was taking nothing because he didn't have symptoms. Diverticulosis on imaging. Surgery has seen in the past - recommended sobriety before considering cholecystectomy. On iron and PPI here. PMH: PMH: per HPI FH: Family History: Other (AAT - father, GERD/Brown's - mother) Social History: Smoke: <1 pack per day ALCOHOL: heavy Drugs: Marijuana ROS: Unable to obtain. Vitals: Vitals: Vital Signs Date Time Temp Pulse Resp B/P (MAP) Pulse Ox O2 Delivery O2 Flow Rate FiO2 05/11/20 09:17 93 108/55 05/11/20 07:00 98.9 16 91 Nasal Cannula 2.0 98.9 Labs: Labs: Laboratory Tests Test 05/10/20 16:50 05/10/20 17:30 05/11/20 04:05 White Blood Count 6.2 x10^3/uL (4.0-11.0) 4.1 x10^3/uL (4.0-11.0) Red Blood Count 4.61 x10^6/uL (4.30-5.70) 3.97 x10^6/uL (4.30-5.70) Hemoglobin 14.9 g/dL (13.0-17.5) 13.0 g/dL (13.0-17.5) Hematocrit 44.0 % (39.0-53.0) 37.7 % (39.0-53.0) Mean Corpuscular Volume 96 fL (79-100) 95 fL (79-100) Mean Corpuscular Hemoglobin 32 pg (25-35) 33 pg (25-35) Mean Corpuscular Hemoglobin Concent 34 g/dL (31-37) 34 g/dL (31-37) Red Cell Distribution Width 17.6 % (11.5-14.5) 17.3 % (11.5-14.5) Platelet Count 89 x10^3/uL (140-400) 66 x10^3/uL (140-400) Neutrophils (%) (Auto) 56 % (31-73) 45 % (31-73) Lymphocytes (%) (Auto) 35 % (24-48) 42 % (24-48) Monocytes (%) (Auto) 8 % (0-9) 10 % (0-9) Eosinophils (%) (Auto) 1 % (0-3) 2 % (0-3) Basophils (%) (Auto) 1 % (0-3) 1 % (0-3) Neutrophils # (Auto) 3.4 x10^3/uL (1.8-7.7) 1.9 x10^3/uL (1.8-7.7) Lymphocytes # (Auto) 2.1 x10^3/uL (1.0-4.8) 1.7 x10^3/uL (1.0-4.8) Monocytes # (Auto) 0.5 x10^3/uL (0.0-1.1) 0.4 x10^3/uL (0.0-1.1) Eosinophils # (Auto) 0.1 x10^3/uL (0.0-0.7) 0.1 x10^3/uL (0.0-0.7) Basophils # (Auto) 0.1 x10^3/uL (0.0-0.2) 0.0 x10^3/uL (0.0-0.2) Sodium Level 141 mmol/L (136-145) 141 mmol/L (136-145) Potassium Level 3.4 mmol/L (3.5-5.1) 3.9 mmol/L (3.5-5.1) Chloride Level 104 mmol/L (98-107) 105 mmol/L (98-107) Carbon Dioxide Level 25 mmol/L (21-32) 30 mmol/L (21-32) Anion Gap 12 (6-14) 6 (6-14) Blood Urea Nitrogen 8 mg/dL (8-26) 9 mg/dL (8-26) Creatinine 0.8 mg/dL (0.7-1.3) 0.8 mg/dL (0.7-1.3) Estimated GFR (Cockcroft-Gault) 113.5 113.5 BUN/Creatinine Ratio 10 (6-20) 11 (6-20) Glucose Level 124 mg/dL (70-99) 104 mg/dL (70-99) Calcium Level 7.9 mg/dL (8.5-10.1) 7.6 mg/dL (8.5-10.1) Total Bilirubin 2.4 mg/dL (0.2-1.0) 2.6 mg/dL (0.2-1.0) Aspartate Amino Transf (AST/SGOT) 158 U/L (15-37) 149 U/L (15-37) Alanine Aminotransferase (ALT/SGPT) 72 U/L (16-63) 69 U/L (16-63) Alkaline Phosphatase 218 U/L (46-116) 192 U/L (46-116) Total Protein 7.3 g/dL (6.4-8.2) 6.3 g/dL (6.4-8.2) Albumin 3.3 g/dL (3.4-5.0) 2.8 g/dL (3.4-5.0) Albumin/Globulin Ratio 0.8 (1.0-1.7) 0.8 (1.0-1.7) Salicylates Level < 2.8 mg/dL (2.8-20.0) Salicylate Last Dose Date Unk Salicylate Last Dose Time Unk Acetaminophen Level < 2 mcg/ml (10-30) Acetaminophen Last Dose Date Unk Acetaminophen Last Dose Time Unk Ethyl Alcohol Level 348 mg/dL (0-10) Urine Collection Type U cath Urine Color [place] Urine Clarity Clear Urine pH 6.0 (<5.0-8.0) Urine Specific [place] >=1.030 (1.000-1.030) Urine Protein 100 mg/dL (NEG-TRACE) Urine Glucose (UA) Negative mg/dL (NEG) Urine Ketones (Stick) Trace mg/dL (NEG) Urine Blood Negative (NEG) Urine Nitrite Positive (NEG) Urine Bilirubin Moderate (NEG) Urine Urobilinogen Dipstick 1.0 mg/dL (0.2 mg/dL) Urine Leukocyte Esterase Trace (NEG) Urine RBC 1-2 /HPF (0-2) Urine WBC 1-4 /HPF (0-4) Urine Squamous Epithelial Cells Few /LPF Urine Bacteria Few /HPF (0-FEW) Urine Hyaline Casts Few /HPF Urine Granular Casts Few /HPF Urine Mucus Slight /LPF Urine Opiates Screen Neg (NEG) Urine Methadone Screen Neg (NEG) Urine Barbiturates Neg (NEG) Urine Phencyclidine Screen Neg (NEG) Urine Amphetamine/Methamphetamine Neg (NEG) Urine Benzodiazepines Screen Neg (NEG) Urine Cocaine Screen Neg (NEG) Urine Cannabinoids Screen Pos (NEG) Urine Ethyl Alcohol Pos (NEG) Magnesium Level 1.6 mg/dL (1.8-2.4) Allergies: Coded Allergies: adhesive tape (Verified Allergy, Intermediate, Rash, 02/22/20) Medications: Current Medications Medications (Trade) Dose Ordered Sig/Renee Route PRN Reason Start Time Stop Time Status Last Admin Dose Admin Ziprasidone (Geodon Im) 20 mg 1X ONCE IM 05/10/20 16:45 05/10/20 16:46 DC 05/10/20 16:35 Ceftriaxone Sodium (Rocephin) 1 gm 1X ONCE IVP 05/10/20 18:30 05/10/20 18:31 DC 05/10/20 21:00 Acetaminophen (Tylenol) 650 mg 1X ONCE PO 05/10/20 22:15 05/10/20 22:16 DC 05/10/20 22:33 Lorazepam (Ativan) 2 mg Q6H PO 05/10/20 22:15 05/11/20 01:56 DC 05/10/20 22:33 Ferrous Sulfate (Feosol) 325 mg DAILYWBKFT PO 05/11/20 08:00 05/11/20 09:17 Gabapentin (Neurontin) 300 mg TID PO 05/10/20 23:00 05/11/20 09:17 Hydroxyzine HCl (Atarax) 75 mg TID PO 05/10/20 23:00 05/11/20 09:16 Lactulose (Lactulose) 20 gm TID PO 05/10/20 23:00 05/11/20 09:19 Olanzapine (ZyPREXA) 5 mg QHS PO 05/10/20 23:00 05/10/20 23:02 Pantoprazole Sodium (Protonix) 40 mg DAILYAC PO 05/11/20 07:30 05/11/20 09:17 Prazosin HCl (Minipress) 1 mg QHS PO 05/10/20 23:00 05/10/20 23:02 Propranolol HCl (Inderal) 10 mg BID PO 05/10/20 23:00 05/11/20 09:17 Trazodone HCl (Desyrel) 100 mg QHS PO 05/10/20 23:00 05/10/20 23:03 Ziprasidone (Geodon) 20 mg BID PO 05/10/20 23:00 05/11/20 09:16 Benztropine Mesylate (Cogentin) 0.5 mg BID PO 05/10/20 23:00 05/11/20 09:17 Lorazepam (Ativan Inj) 1 mg PRN Q1HR PRN IV For CIWA 8-14 05/10/20 22:45 05/10/20 23:47 Mupirocin (Bactroban) 1 yola TID TP 05/10/20 22:45 05/11/20 09:15 Potassium Chloride (Klor-Con) 40 meq 1X ONCE PO 05/10/20 22:45 05/10/20 22:54 DC 05/10/20 23:03 Ciprofloxacin/ Dextrose 100 ml @ 100 mls/hr Q12HR IV 05/10/20 23:00 05/11/20 08:31 Magnesium Sulfate 100 ml @ 25 mls/hr 1X ONCE IV 05/11/20 08:15 05/11/20 12:14 05/11/20 09:38 Imaging: Imaging: - PE: GEN: NAD HEENT: Atraumatic, PERRL LUNGS: CTAB HEART: mildly tachycardic ABD: NABS, S/ND/NT EXTREMITY: No edema SKIN: No rashes, no jaundice NEURO/PSYCH: drowsy, mumbles A/P: A/P: SI, combativeness, hematuria Chronic pain Alcoholic cirrhosis and +AAT MZ phenotype, h/o esophageal varices (banded 01/2020), chronically elevated LFTs GERD - on PPI Cholelithiasis Diverticulosis -- Significant psych history, still drinking. Other per Dr. Florez. JANET STEWART May 11, 2020 10:43
[2020-05-11 11:05] VITALS: BP 122/65
[2020-05-11] MEDS: HYDROmorphone 2 MG TABLET PO PRN ×2 (12:03→20:00)
[2020-05-11 15:00] VITALS: BP 140/72
--- NOTE | 2020-05-11 18:33 | PDOC1 ---
History & Psych Evaluation Date of Admission: Date of Admission DATE: 05/11/20 TIME: 18:13 Source: Source: Caregiver, Chart review, Patient Identification: Identification He is a 30-year-old gentleman with history of liver cirrhosis and schizoaffective disorder. Chief Complaint: Chief Complaint Alcohol abuse, psychosis, suicidal ideation with plan to stab himself. History of Present Illness: HPI: He is a young gentleman with prior history of schizoaffective disorder bipolar type, extensive history of alcohol abuse, alpha 1 antitrypsin deficiency/cirrhosis of liver with decompensation admitted with suicidal ideation. Upon interview, he appears drowsy, confused, and somewhat frustrated. States, his therapist told him whenever he gets suicidal ideation he should call 911. States, he was intoxicated and having recurrent thoughts of stabbing himself. He states, he was not feeling safe and as per advice of therapist he called 911. He was also agitated towards EMS. He hit EMS medics and bite himself. He was combative and agitated with intoxication in ER. States, he is depressed and having high anxiety. Depression is reported as moderate and anxiety is reportedly 9/10 10 is worse. He has history of multiple suicidal attempts and hospital admissions. Also history of alcohol rehab. He denies suicidal or homicidal thoughts. States" of course I would not like to kill myself". Denies auditory or visual hallucinations. States, he takes monthly injection. Also on Lexapro. Past Psychiatric History: Previously diagnosed with depression, anxiety, schizoaffective disorder, schizophrenia. History of multiple hospital admissions at [facility], also [facility] and at [place]. History of multiple suicidal attempts. History of extensive alcohol abuse with recurrent admissions due to intoxication and suicidality. Past Medical History: Suicidal ideation EtOH abuse - Hematuria - with apparent UTI Acute alcohol intoxication Major depression Acute psychosis - Acute toxic encephalopathy - ETOH and psychosis Thrombocytopenia - Acute alcoholic hepatitis - Hypomagnesemia - Hypokalemia - Schizophrenia - Alpha-1 antitrypsin deficiency - MZ mutation - Hepatic cirrhosis and findings of portal hypertension Esophageal varices - Family History: Mother has depression, anxiety, and bipolar mood disorder. Brother has bipolar mood disorder. Social History: Social History: He lives with his brother and mother. Born and raised in [place]. Extensive history of illicit substance use and alcohol abuse. Current Medications: Current Medications Current Medications Medications (Trade) Dose Ordered Sig/Renee Start Time Stop Time Status Last Admin Dose Admin Acetaminophen (Tylenol) 650 mg 1X ONCE 05/10/20 22:15 05/10/20 22:16 DC 05/10/20 22:33 650 MG Alprazolam (Xanax) 0.5 mg 1X ONCE 05/10/20 20:45 05/10/20 20:46 DC Benztropine Mesylate (Cogentin) 0.5 mg BID 05/10/20 23:00 05/11/20 09:17 0.5 MG Buspirone HCl (Buspar) 5 mg PRN TID PRN 05/10/20 22:45 Ceftriaxone Sodium (Rocephin) 1 gm 1X ONCE 05/10/20 18:30 05/10/20 18:31 DC 05/10/20 21:00 1 GM Ciprofloxacin/ Dextrose 100 ml @ 100 mls/hr Q12HR 05/10/20 23:00 05/11/20 08:31 100 MLS/HR Clonidine HCl (Catapres) 0.1 mg PRN Q1HR PRN 05/10/20 22:45 Ferrous Sulfate (Feosol) 325 mg DAILYWBKFT 05/11/20 08:00 05/11/20 09:17 325 MG Folic Acid (Folic Acid) 1 mg DAILY 05/11/20 09:00 05/10/20 22:45 DC Gabapentin (Neurontin) 300 mg TID 05/10/20 23:00 05/11/20 14:37 300 MG Hydromorphone HCl (Dilaudid) 2 mg PRN Q8HRS PRN 05/10/20 23:15 05/11/20 12:03 2 MG Hydroxyzine HCl (Atarax) 75 mg TID 05/10/20 23:00 05/11/20 14:38 75 MG Lactulose (Lactulose) 20 gm TID 05/10/20 23:00 05/11/20 14:38 20 GM Lorazepam (Ativan Inj) 1 mg PRN Q1HR PRN 05/10/20 22:45 05/11/20 12:41 1 MG Lorazepam (Ativan) 2 mg PRN Q1HR PRN 05/10/20 22:45 Magnesium Sulfate 100 ml @ 25 mls/hr 1X ONCE 05/11/20 08:15 05/11/20 12:14 DC 05/11/20 09:38 25 MLS/HR Multivitamins (Thera M Plus) 1 tab DAILY 05/15/20 09:00 Mupirocin (Bactroban) 1 yola TID 05/10/20 22:45 05/11/20 14:38 1 YOLA Non-Formulary Medication (Multivitamin (Multivitamins)) 1 tab DAILY 05/11/20 09:00 05/10/20 22:50 DC Non-Formulary Medication (Thiamine Hcl (Vitamin B-1)) 100 mg DAILY 05/11/20 09:00 UNV Olanzapine (ZyPREXA) 5 mg QHS 05/10/20 23:00 05/10/20 23:02 5 MG Pantoprazole Sodium (Protonix) 40 mg DAILYAC 05/11/20 07:30 05/11/20 09:17 40 MG Potassium Chloride (Klor-Con) 40 meq 1X ONCE 05/10/20 22:45 05/10/20 22:54 DC 05/10/20 23:03 40 MEQ Prazosin HCl (Minipress) 1 mg QHS 05/10/20 23:00 05/10/20 23:02 1 MG Propranolol HCl (Inderal) 10 mg BID 05/10/20 23:00 05/11/20 09:17 10 MG Thiamine Mononitrate (Vitamin B-1) 100 mg DAILY 05/15/20 09:00 Trazodone HCl (Desyrel) 100 mg QHS 05/10/20 23:00 05/10/20 23:03 100 MG Ziprasidone (Geodon Im) 20 mg 1X ONCE 05/10/20 16:45 05/10/20 16:46 DC 05/10/20 16:35 20 MG Ziprasidone (Geodon) 20 mg BID 05/10/20 23:00 05/11/20 09:16 20 MG Allergies: Allergies: Coded Allergies: adhesive tape (Verified Allergy, Intermediate, Rash, 02/22/20) Mental Status Examination: Mental Status Examination Young gentleman, appears as a stated age, fairly groomed, fairly nourished Not very cooperative, confused and resistant Disoriented Thought processes rambling. Denies auditory or visual hallucinations. Denies suicidal or homicidal thoughts. Mood is depressed and anxious Affect is dysthymic Insight is fair Judgment is fair Impulse control is fair Attention and span and concentration impaired Recent memory impaired. ROS: CONSTITUTIONAL: No fever or chills EYES: No recent changes SKIN: No rash or itching CARDIOVASCULAR: No chest pain, syncope, palpitations, or edema RESPIRATORY: No SOB or cough GASTROINTESTINAL: Positive for abdominal pain NEUROLOGICAL: Positive for confusion ENDOCRINE: No cold or heat intolerance MUSCULOSKELETAL: No back pain or joint pain LYMPHATICS: No enlarged lymph nodes PSYCHIATRIC: Positive for depression, anxiety, psychosis, and agitation. Positive for suicidality Physical Exam: Refer to Physician's note. [employer]INEER: No focal deficit MSK: No EPS, TDK, or abnormal involuntary movements Vitals: Vitals Vital Signs Date Time Temp Pulse Resp B/P (MAP) Pulse Ox O2 Delivery O2 Flow Rate FiO2 05/11/20 15:00 98.3 94 16 140/72 (94) 94 Room Air 3.0 98.3 Labs: Labs Laboratory Tests Test 05/10/20 16:50 05/10/20 17:30 05/11/20 04:05 White Blood Count 6.2 x10^3/uL (4.0-11.0) 4.1 x10^3/uL (4.0-11.0) Red Blood Count 4.61 x10^6/uL (4.30-5.70) 3.97 x10^6/uL (4.30-5.70) Hemoglobin 14.9 g/dL (13.0-17.5) 13.0 g/dL (13.0-17.5) Hematocrit 44.0 % (39.0-53.0) 37.7 % (39.0-53.0) Mean Corpuscular Volume 96 fL (79-100) 95 fL (79-100) Mean Corpuscular Hemoglobin 32 pg (25-35) 33 pg (25-35) Mean Corpuscular Hemoglobin Concent 34 g/dL (31-37) 34 g/dL (31-37) Red Cell Distribution Width 17.6 % (11.5-14.5) 17.3 % (11.5-14.5) Platelet Count 89 x10^3/uL (140-400) 66 x10^3/uL (140-400) Neutrophils (%) (Auto) 56 % (31-73) 45 % (31-73) Lymphocytes (%) (Auto) 35 % (24-48) 42 % (24-48) Monocytes (%) (Auto) 8 % (0-9) 10 % (0-9) Eosinophils (%) (Auto) 1 % (0-3) 2 % (0-3) Basophils (%) (Auto) 1 % (0-3) 1 % (0-3) Neutrophils # (Auto) 3.4 x10^3/uL (1.8-7.7) 1.9 x10^3/uL (1.8-7.7) Lymphocytes # (Auto) 2.1 x10^3/uL (1.0-4.8) 1.7 x10^3/uL (1.0-4.8) Monocytes # (Auto) 0.5 x10^3/uL (0.0-1.1) 0.4 x10^3/uL (0.0-1.1) Eosinophils # (Auto) 0.1 x10^3/uL (0.0-0.7) 0.1 x10^3/uL (0.0-0.7) Basophils # (Auto) 0.1 x10^3/uL (0.0-0.2) 0.0 x10^3/uL (0.0-0.2) Sodium Level 141 mmol/L (136-145) 141 mmol/L (136-145) Potassium Level 3.4 mmol/L (3.5-5.1) 3.9 mmol/L (3.5-5.1) Chloride Level 104 mmol/L (98-107) 105 mmol/L (98-107) Carbon Dioxide Level 25 mmol/L (21-32) 30 mmol/L (21-32) Anion Gap 12 (6-14) 6 (6-14) Blood Urea Nitrogen 8 mg/dL (8-26) 9 mg/dL (8-26) Creatinine 0.8 mg/dL (0.7-1.3) 0.8 mg/dL (0.7-1.3) Estimated GFR (Cockcroft-Gault) 113.5 113.5 BUN/Creatinine Ratio 10 (6-20) 11 (6-20) Glucose Level 124 mg/dL (70-99) 104 mg/dL (70-99) Calcium Level 7.9 mg/dL (8.5-10.1) 7.6 mg/dL (8.5-10.1) Total Bilirubin 2.4 mg/dL (0.2-1.0) 2.6 mg/dL (0.2-1.0) Aspartate Amino Transf (AST/SGOT) 158 U/L (15-37) 149 U/L (15-37) Alanine Aminotransferase (ALT/SGPT) 72 U/L (16-63) 69 U/L (16-63) Alkaline Phosphatase 218 U/L (46-116) 192 U/L (46-116) Total Protein 7.3 g/dL (6.4-8.2) 6.3 g/dL (6.4-8.2) Albumin 3.3 g/dL (3.4-5.0) 2.8 g/dL (3.4-5.0) Albumin/Globulin Ratio 0.8 (1.0-1.7) 0.8 (1.0-1.7) Salicylates Level < 2.8 mg/dL (2.8-20.0) Salicylate Last Dose Date Unk Salicylate Last Dose Time Unk Acetaminophen Level < 2 mcg/ml (10-30) Acetaminophen Last Dose Date Unk Acetaminophen Last Dose Time Unk Ethyl Alcohol Level 348 mg/dL (0-10) Urine Collection Type U cath Urine Color [place] Urine Clarity Clear Urine pH 6.0 (<5.0-8.0) Urine Specific [place] >=1.030 (1.000-1.030) Urine Protein 100 mg/dL (NEG-TRACE) Urine Glucose (UA) Negative mg/dL (NEG) Urine Ketones (Stick) Trace mg/dL (NEG) Urine Blood Negative (NEG) Urine Nitrite Positive (NEG) Urine Bilirubin Moderate (NEG) Urine Urobilinogen Dipstick 1.0 mg/dL (0.2 mg/dL) Urine Leukocyte Esterase Trace (NEG) Urine RBC 1-2 /HPF (0-2) Urine WBC 1-4 /HPF (0-4) Urine Squamous Epithelial Cells Few /LPF Urine Bacteria Few /HPF (0-FEW) Urine Hyaline Casts Few /HPF Urine Granular Casts Few /HPF Urine Mucus Slight /LPF Urine Opiates Screen Neg (NEG) Urine Methadone Screen Neg (NEG) Urine Barbiturates Neg (NEG) Urine Phencyclidine Screen Neg (NEG) Urine Amphetamine/Methamphetamine Neg (NEG) Urine Benzodiazepines Screen Neg (NEG) Urine Cocaine Screen Neg (NEG) Urine Cannabinoids Screen Pos (NEG) Urine Ethyl Alcohol Pos (NEG) Magnesium Level 1.6 mg/dL (1.8-2.4) Laboratory Tests Test 05/11/20 04:05 White Blood Count 4.1 x10^3/uL (4.0-11.0) Red Blood Count 3.97 x10^6/uL (4.30-5.70) Hemoglobin 13.0 g/dL (13.0-17.5) Hematocrit 37.7 % (39.0-53.0) Mean Corpuscular Volume 95 fL (79-100) Mean Corpuscular Hemoglobin 33 pg (25-35) Mean Corpuscular Hemoglobin Concent 34 g/dL (31-37) Red Cell Distribution Width 17.3 % (11.5-14.5) Platelet Count 66 x10^3/uL (140-400) Neutrophils (%) (Auto) 45 % (31-73) Lymphocytes (%) (Auto) 42 % (24-48) Monocytes (%) (Auto) 10 % (0-9) Eosinophils (%) (Auto) 2 % (0-3) Basophils (%) (Auto) 1 % (0-3) Neutrophils # (Auto) 1.9 x10^3/uL (1.8-7.7) Lymphocytes # (Auto) 1.7 x10^3/uL (1.0-4.8) Monocytes # (Auto) 0.4 x10^3/uL (0.0-1.1) Eosinophils # (Auto) 0.1 x10^3/uL (0.0-0.7) Basophils # (Auto) 0.0 x10^3/uL (0.0-0.2) Sodium Level 141 mmol/L (136-145) Potassium Level 3.9 mmol/L (3.5-5.1) Chloride Level 105 mmol/L (98-107) Carbon Dioxide Level 30 mmol/L (21-32) Anion Gap 6 (6-14) Blood Urea Nitrogen 9 mg/dL (8-26) Creatinine 0.8 mg/dL (0.7-1.3) Estimated GFR (Cockcroft-Gault) 113.5 BUN/Creatinine Ratio 11 (6-20) Glucose Level 104 mg/dL (70-99) Calcium Level 7.6 mg/dL (8.5-10.1) Magnesium Level 1.6 mg/dL (1.8-2.4) Total Bilirubin 2.6 mg/dL (0.2-1.0) Aspartate Amino Transf (AST/SGOT) 149 U/L (15-37) Alanine Aminotransferase (ALT/SGPT) 69 U/L (16-63) Alkaline Phosphatase 192 U/L (46-116) Total Protein 6.3 g/dL (6.4-8.2) Albumin 2.8 g/dL (3.4-5.0) Albumin/Globulin Ratio 0.8 (1.0-1.7) Diagnosis: Diagnosis: 1schizoaffective disorder, likely bipolar type most recent episode depressed with mixed features 2generalized anxiety disorder. 3alcohol use disorder, recurrent, severe 4alcohol intoxication in context of alcohol use disorder. 5 acute acute delirium likely metabolic Assessment: He is a young gentleman with longstanding history of mental health issues including thought process disruption and mood instability admitted with suicidal ideation. Presently he is depressed, delirious, anxious likely precipitated by alcohol intoxication and his complicated medical issues, of note, liver cirrhosis with decompensation. Recommending to start Lexapro 10 mg daily as reported by patient, would not require any dose adjustment in liver disease. Plan: 1Lexapro 10 mg daily for depression and anxiety 2increase Geodon to 40 mg twice a day, would not require dose adjustment and liver disease. 3continue Zyprexa, split dose of Zyprexa 5 mg to 2.5 twice daily for anxiety. 4continue alcohol withdrawal treatment as is with CIWA and gabapentin. 5risk, benefits, alternatives of the treatment are discussed. He is in agreement with plan and voiced understanding. Thank you for involving inpatient care PAOLO CLARK MD May 11, 2020 18:33
[2020-05-11 19:11] VITALS: BP 141/84
[2020-05-11] MEDS: LORazepam 1 MG TABLET PO PRN (20:01)
[2020-05-11] MEDS: traZODone 100 MG TABLET. PO SCH (21:25)
[2020-05-11] MEDS: PRAZOSIN 1 MG CAPSULE. PO SCH (21:26)
[2020-05-11] MEDS: OLANZapine 2.5 MG TABLET PO SCH (21:26)
[2020-05-11] MEDS ORDERED: ZIPRASIDONE 20 MG CAPSULE PO SCH (23:00)
[2020-05-11 23:29] VITALS: BP 131/70
[2020-05-12 02:48] VITALS: BP 131/72
[2020-05-12] MEDS: HYDROmorphone 2 MG TABLET PO PRN (05:55)
[2020-05-12 07:00] VITALS: BP 143/73
[2020-05-12] MEDS: FERROUS SULFATE 325 MG TABLET. PO SCH (09:16)
[2020-05-12] MEDS: busPIRone 5 MG TABLET. PO PRN ×2 (09:16→19:58)
[2020-05-12] MEDS: BENZTROPINE MESYLATE 1 MG TABLET. PO SCH ×2 (09:16→20:01)
[2020-05-12] MEDS: PANTOPRAZOLE 40 MG TABLET.DR. PO SCH (09:16)
[2020-05-12] MEDS: OLANZapine 2.5 MG TABLET PO SCH ×2 (09:16→19:59)
[2020-05-12] MEDS: ZIPRASIDONE 20 MG CAPSULE PO SCH ×2 (09:16→19:58)
[2020-05-12] MEDS: LACTULOSE 20 GM/30 ML SOLUTION. PO SCH ×3 (09:17→19:57)
[2020-05-12] MEDS: hydrOXYzine 25 MG TABLET PO SCH (09:17)
[2020-05-12] MEDS: LORazepam 1 MG TABLET PO PRN (09:17)
[2020-05-12] MEDS: GABAPENTIN 300 MG CAPSULE. PO SCH ×3 (09:17→19:58)
[2020-05-12] MEDS: PROPRANOLOL 10 MG TABLET. PO SCH ×2 (09:17→19:58)
[2020-05-12] MEDS: CIPROFLOXACIN 200MG PREMIX 100 ML IV SCH ×2 (09:18→19:59)
[2020-05-12] MEDS: MUPIROCIN 2 % TOPICAL CREAM 30GM TUBE. TP SCH ×3 (09:23→20:01)
--- NOTE | 2020-05-12 09:24 | PDOC ---
PROGRESS NOTES Chief Complaint Chief Complaint A/P: Suicidal ideation - with plan to stab himself. Psych and PAT team aware. He is acutely intoxicated with labs abnormalities, will need to address medical issues first EtOH abuse - with acute intoxication on admission. georgi Silvestre bag. Will add gabapentin based on new clinical trial data to help him avoid relapse Hematuria - with apparent UTI, will treat with cipro, f/u cultures. WIll likely need urology f/u. Will send cytology as well Acute alcohol intoxication - will cont georgi DUNN bag Major depression - needs outpatient treatment Acute psychosis - will restart his home medications Acute toxic encephalopathy - ETOH and psychosis Thrombocytopenia - likely related to liver disease, will minimize his exposure to 1st generation anti-psychotics based on this. 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 Will cont his home medications which have helped reduce his hospitalizations Smoker - counseled on cessation Alpha-1 antitrypsin deficiency - MZ mutation - increases his risk of liver disease given his ETOH abuse DJD - pain control Transaminitis - fits ETOH pattern. trend Hepatic cirrhosis and findings of portal hypertension , C/W END ORGAN INJURY. Bilirubin 2.4 Esophageal varices - numerous, Varices with stigmata of recent bleeding; all 3 banded. 02/21 Gallstone lodged at the gallbladder neck, no gallbladder wall thickening - seen by general surgery previously, no indication for surgery Hypokalemia - will replace [Prior admissions to [facility]: 06/21/2017 - 06/25/2017 - Suicidal ideation and alcoholic intoxication. PAT team for suicidal ideation and [facility]. EGD 06/25/2017 - small varices and patchy portal gastropathy 06/30/2019 - 07/07/2019 - EGD on 07/01/2019 grade 2 varices with scarring, probably from prior banding in the distal third of the esophagus. Two 1-2 mm linear ulcerations were noted in the distal esophagus. Diffuse portal hypertensive gastropathy was also noted. 06/16/2019 - 06/22/2019 - UGIB 06/23/2019 - 09/02/2019 - Suicide attempt, cut wrists and ETOH intoxication, acute psychosis. Involuntarily committed to [facility] 09/10/2019 - 09/14/2019 - ETOH intoxication 09/16/2019 - 09/21/2019 - Wrist cutting, mother called adult protective services. ETOH intoxication 11/02/2019 - 11/03/2019 - GB disease 12/19/2019 - 12/26/2019 - ETOH intoxication, suicidal ideation 01/10/2020 - 01/13/2020 - ETOH intoxication FEN - General diet PPX - SCDs FULL CODE Dispo - inpatient for above History of Present Illness History of Present Illness Mr Dsouza is a 30yo M w/ PMHx schizophrenia, multiple suicidal attempts (6 in t he past year at [facility]), alcohol abuse, DJD, smoker, alpha-1 antitrypsin deficiency (MZ phenotype), and cirrhosis of the liver with variceal banding who p/w suicidal ideation. He called 911 as he felt the urge to stab himself in the chest to end his life. Initially cooperative with medics, though became agitated and attempted to bite himself and the medics. He succeeded in biting his left arm, and was given ketamine 100 mg H[employer] RES[employer] TRA[employer] with transient efficacy. He arrived very combative and in an agitated and intoxicated state and was temporarily placed in 4 point restraints after attempting to bite EMS. He was given additional geodon 20 mg IM with efficacy. ROS notable for SI, as well as some reported hematuria for at least a month. EKG at 1738. Sinus tachycardia. Heart rate 113. MN interval of 170 ms. QRS duration of 104 ms. QTC of 475 ms. No STEMI. UDS positive for cannabinoids and ETOH. ETOH was 348. Na 141, K 3.4, BUN 12, Cr 0.8. Glucose 124, Bili 2.4, AST 158, ALT 72, Alkaline phos 218. Albumin 3.3. WBC 6.2, Hb 14.9, Platelets 89. Admitted for further care 05/11: Overnight more calm. Mg 1.6 today.Platelets 66. He still endorses suicidal ideation. He is a bit confused complaining of suprapubic pain. No further urine out yet this morning. Still on one-to-one sitter. Bilirubin up to 5.2. Denies SI today. Still very confused and lethargic. Vitals Vitals Vital Signs Date Time Temp Pulse Resp B/P (MAP) Pulse Ox O2 Delivery O2 Flow Rate FiO2 05/12/20 09:17 96 143/73 05/12/20 07:00 98.1 18 94 Room Air 3.0 98.1 Physical Exam General: Alert, No acute distress, moderate distress, Other (Combative, impulsive, intoxicated) Lungs: Clear Abdomen: Normal bowel sounds, Soft, No hepatosplenomegaly, No masses, Other (Epigastric and suprapubic tenderness) Extremities: No clubbing, No cyanosis, No edema, Normal pulses, No tenderness/swelling Skin: No rashes, No breakdown, No significant lesion, Other (Scratch on left arm) Assessment and Plan Assessmemt and Plan Problems Medical Problems: (1) Alcohol intoxication Status: Chronic (2) Planning to commit suicide Status: Acute (3) Suicidal ideation Status: Acute Comment Review of Relevant I have reviewed the following items mc (where applicable) has been applied. Labs Laboratory Tests Test 05/10/20 16:50 05/10/20 17:30 05/11/20 04:05 White Blood Count 6.2 x10^3/uL (4.0-11.0) 4.1 x10^3/uL (4.0-11.0) Red Blood Count 4.61 x10^6/uL (4.30-5.70) 3.97 x10^6/uL (4.30-5.70) Hemoglobin 14.9 g/dL (13.0-17.5) 13.0 g/dL (13.0-17.5) Hematocrit 44.0 % (39.0-53.0) 37.7 % (39.0-53.0) Mean Corpuscular Volume 96 fL (79-100) 95 fL (79-100) Mean Corpuscular Hemoglobin 32 pg (25-35) 33 pg (25-35) Mean Corpuscular Hemoglobin Concent 34 g/dL (31-37) 34 g/dL (31-37) Red Cell Distribution Width 17.6 % (11.5-14.5) 17.3 % (11.5-14.5) Platelet Count 89 x10^3/uL (140-400) 66 x10^3/uL (140-400) Neutrophils (%) (Auto) 56 % (31-73) 45 % (31-73) Lymphocytes (%) (Auto) 35 % (24-48) 42 % (24-48) Monocytes (%) (Auto) 8 % (0-9) 10 % (0-9) Eosinophils (%) (Auto) 1 % (0-3) 2 % (0-3) Basophils (%) (Auto) 1 % (0-3) 1 % (0-3) Neutrophils # (Auto) 3.4 x10^3/uL (1.8-7.7) 1.9 x10^3/uL (1.8-7.7) Lymphocytes # (Auto) 2.1 x10^3/uL (1.0-4.8) 1.7 x10^3/uL (1.0-4.8) Monocytes # (Auto) 0.5 x10^3/uL (0.0-1.1) 0.4 x10^3/uL (0.0-1.1) Eosinophils # (Auto) 0.1 x10^3/uL (0.0-0.7) 0.1 x10^3/uL (0.0-0.7) Basophils # (Auto) 0.1 x10^3/uL (0.0-0.2) 0.0 x10^3/uL (0.0-0.2) Sodium Level 141 mmol/L (136-145) 141 mmol/L (136-145) Potassium Level 3.4 mmol/L (3.5-5.1) 3.9 mmol/L (3.5-5.1) Chloride Level 104 mmol/L (98-107) 105 mmol/L (98-107) Carbon Dioxide Level 25 mmol/L (21-32) 30 mmol/L (21-32) Anion Gap 12 (6-14) 6 (6-14) Blood Urea Nitrogen 8 mg/dL (8-26) 9 mg/dL (8-26) Creatinine 0.8 mg/dL (0.7-1.3) 0.8 mg/dL (0.7-1.3) Estimated GFR (Cockcroft-Gault) 113.5 113.5 BUN/Creatinine Ratio 10 (6-20) 11 (6-20) Glucose Level 124 mg/dL (70-99) 104 mg/dL (70-99) Calcium Level 7.9 mg/dL (8.5-10.1) 7.6 mg/dL (8.5-10.1) Total Bilirubin 2.4 mg/dL (0.2-1.0) 2.6 mg/dL (0.2-1.0) Aspartate Amino Transf (AST/SGOT) 158 U/L (15-37) 149 U/L (15-37) Alanine Aminotransferase (ALT/SGPT) 72 U/L (16-63) 69 U/L (16-63) Alkaline Phosphatase 218 U/L (46-116) 192 U/L (46-116) Total Protein 7.3 g/dL (6.4-8.2) 6.3 g/dL (6.4-8.2) Albumin 3.3 g/dL (3.4-5.0) 2.8 g/dL (3.4-5.0) Albumin/Globulin Ratio 0.8 (1.0-1.7) 0.8 (1.0-1.7) Salicylates Level < 2.8 mg/dL (2.8-20.0) Salicylate Last Dose Date Unk Salicylate Last Dose Time Unk Acetaminophen Level < 2 mcg/ml (10-30) Acetaminophen Last Dose Date Unk Acetaminophen Last Dose Time Unk Ethyl Alcohol Level 348 mg/dL (0-10) Urine Collection Type U cath Urine Color [place] Urine Clarity Clear Urine pH 6.0 (<5.0-8.0) Urine Specific Mullan >=1.030 (1.000-1.030) Urine Protein 100 mg/dL (NEG-TRACE) Urine Glucose (UA) Negative mg/dL (NEG) Urine Ketones (Stick) Trace mg/dL (NEG) Urine Blood Negative (NEG) Urine Nitrite Positive (NEG) Urine Bilirubin Moderate (NEG) Urine Urobilinogen Dipstick 1.0 mg/dL (0.2 mg/dL) Urine Leukocyte Esterase Trace (NEG) Urine RBC 1-2 /HPF (0-2) Urine WBC 1-4 /HPF (0-4) Urine Squamous Epithelial Cells Few /LPF Urine Bacteria Few /HPF (0-FEW) Urine Hyaline Casts Few /HPF Urine Granular Casts Few /HPF Urine Mucus Slight /LPF Urine Opiates Screen Neg (NEG) Urine Methadone Screen Neg (NEG) Urine Barbiturates Neg (NEG) Urine Phencyclidine Screen Neg (NEG) Urine Amphetamine/Methamphetamine Neg (NEG) Urine Benzodiazepines Screen Neg (NEG) Urine Cocaine Screen Neg (NEG) Urine Cannabinoids Screen Pos (NEG) Urine Ethyl Alcohol Pos (NEG) Magnesium Level 1.6 mg/dL (1.8-2.4) Medications Current Medications Ziprasidone (Geodon Im) 20 mg 1X ONCE IM Last administered on 05/10/20at 16:35; Start 05/10/20 at 16:45; Stop 05/10/20 at 16:46; Status DC Ceftriaxone Sodium (Rocephin) 1 gm 1X ONCE IVP Last administered on 05/10/20at 21:00; Start 05/10/20 at 18:30; Stop 05/10/20 at 18:31; Status DC Alprazolam (Xanax) 0.5 mg 1X ONCE PO ; Start 05/10/20 at 20:45; Stop 05/10/20 at 20:46; Status DC Acetaminophen (Tylenol) 650 mg 1X ONCE PO Last administered on 05/10/20at 22:33; Start 05/10/20 at 22:15; Stop 05/10/20 at 22:16; Status DC Multivitamins (Thera M Plus) 1 tab DAILY PO ; Start 05/15/20 at 09:00 Folic Acid (Folic Acid) 1 mg DAILY PO ; Start 05/15/20 at 09:00 Thiamine Mononitrate (Vitamin B-1) 100 mg DAILY PO ; Start 05/15/20 at 09:00 Lorazepam (Ativan) 2 mg Q6H PO Last administered on 05/10/20at 22:33; Start 05/10/20 at 22:15; Stop 05/11/20 at 01:56; Status DC Buspirone HCl (Buspar) 5 mg PRN TID PRN PO Anxiety Last administered on 05/12/20at 09:16; Start 05/10/20 at 22:45 Clonidine HCl (Catapres) 0.1 mg PRN Q1HR PRN PO SBP > 180 or DBP > 100, MRX3; Start 05/10/20 at 22:45 Ferrous Sulfate (Feosol) 325 mg DAILYWBKFT PO Last administered on 05/12/20at 09:16; Start 05/11/20 at 08:00 Folic Acid (Folic Acid) 1 mg DAILY PO ; Start 05/11/20 at 09:00; Stop 05/10/20 at 22:45; Status DC Gabapentin (Neurontin) 300 mg TID PO Last administered on 05/12/20at 09:17; Start 05/10/20 at 23:00 Hydroxyzine HCl (Atarax) 75 mg TID PO Last administered on 05/12/20 09:17; Start 05/10/20 at 23:00 Lactulose (Lactulose) 20 gm TID PO Last administered on 05/12/20 09:17; Start 05/10/20 at 23:00 Olanzapine (ZyPREXA) 5 mg QHS PO Last administered on 05/10/20at 23:02; Start 05/10/20 at 23:00; Stop 05/11/20 at 18:38; Status DC Pantoprazole Sodium (Protonix) 40 mg DAILYAC PO Last administered on 05/12/20at 09:16; Start 05/11/20 at 07:30 Prazosin HCl (Minipress) 1 mg QHS PO Last administered on 05/11/20at 21:26; Start 05/10/20 at 23:00 Propranolol HCl (Inderal) 10 mg BID PO Last administered on 05/12/20 09:17; Start 05/10/20 at 23:00 Trazodone HCl (Desyrel) 100 mg QHS PO Last administered on 05/11/20at 21:25; Start 05/10/20 at 23:00 Ziprasidone (Geodon) 20 mg BID PO Last administered on 05/11/20at 09:16; Start 05/10/20 at 23:00; Stop 05/11/20 at 18:38; Status DC Benztropine Mesylate (Cogentin) 0.5 mg BID PO Last administered on 05/12/20at 09:16; Start 05/10/20 at 23:00 Non-Formulary Medication (Multivitamin (Multivitamins)) 1 tab DAILY PO ; Start 05/11/20 at 09:00; Stop 05/10/20 at 22:50; Status DC Non-Formulary Medication (Thiamine Hcl (Vitamin B-1)) 100 mg DAILY PO ; Start 05/11/20 at 09:00; Status UNV Lorazepam (Ativan) 2 mg PRN Q1HR PRN PO For CIWA 8-14 Last administered on 05/12/20 09:17; Start 05/10/20 at 22:45 Lorazepam (Ativan Inj) 1 mg PRN Q1HR PRN IV For CIWA 8-14 Last administered on 05/12/20at 05:55; Start 05/10/20 at 22:45 Mupirocin (Bactroban) 1 yola TID TP Last administered on 05/12/20 09:23; Start 05/10/20 at 22:45 Potassium Chloride (Klor-Con) 40 meq 1X ONCE PO Last administered on 05/10/20at 23:03; Start 05/10/20 at 22:45; Stop 05/10/20 at 22:54; Status DC Ciprofloxacin/ Dextrose 100 ml @ 100 mls/hr Q12HR IV Last administered on 05/12/20 09:18; Start 05/10/20 at 23:00 Hydromorphone HCl (Dilaudid) 2 mg PRN Q8HRS PRN PO PAIN Last administered on 05/12/20 05:55; Start 05/10/20 at 23:15 Magnesium Sulfate 100 ml @ 25 mls/hr 1X ONCE IV Last administered on 05/11/20at 09:38; Start 05/11/20 at 08:15; Stop 05/11/20 at 12:14; Status DC Olanzapine (ZyPREXA) 2.5 mg BID PO Last administered on 05/12/20at 09:16; Start 05/11/20 at 21:00 Ziprasidone (Geodon) 40 mg BID PO ; Start 05/11/20 at 23:00; Status Cancel Ziprasidone (Geodon) 40 mg BIDWMEALS PO Last administered on 05/12/20at 09:16; Start 05/12/20 at 08:00 Active Scripts Active Gabapentin 300 Mg Capsule 300 Mg PO TID 30 Days Propranolol Hcl 10 Mg Tablet 10 Mg PO BID 30 Days Dilaudid (Hydromorphone Hcl) 2 Mg Tablet 2 Mg PO PRN Q8HRS PRN 6 Days Buspirone Hcl 5 Mg Tablet 5 Mg PO PRN TID PRN 30 Days Benztropine Mesylate 0.5 Mg Tablet 1 Tab PO BID 30 Days Geodon (Ziprasidone Hcl) 20 Mg Capsule 20 Mg PO BID 30 Days Trazodone Hcl 100 Mg Tablet 100 Mg PO QHS 30 Days Catapres (Clonidine Hcl) 0.1 Mg Tablet 0.1 Mg PO PRN Q1HR PRN 7 Days Can take for withdrawal symptoms Xifaxan (Rifaximin) 550 Mg Tablet 550 Mg PO Q12HR 30 Days Lactulose 20 Gm/30 Ml Solution 20 Gm PO TID 30 Days Prazosin Hcl 1 Mg Capsule 1 Cap PO QHS 30 Days Pantoprazole Sodium (Pantoprazole Sodium) 40 Mg Tablet.dr 40 Mg PO DAILYAC Multivitamins (Multivitamin) 1 Each Tablet 1 Tab PO DAILY Folic Acid 1 Mg Tablet 1 Tab PO DAILY Vitamin B-1 (Thiamine Hcl) 100 Mg Tablet 100 Mg PO DAILY 30 Days Feosol (Ferrous Sulfate) 325 Mg Tablet 325 Mg PO DAILYWBKFT 30 Days Reported Zyprexa (Olanzapine) 5 Mg Tablet 1 Tab PO QHS Hydroxyzine Hcl 25 Mg Tablet 3 Tab PO TID Vitals/I & O Vital Sign - Last 24 Hours 05/11/20 05/11/20 05/11/20 05/11/20 11:05 12:03 13:03 15:00 Temp 98.4 98.3 98.4 98.3 Pulse 92 94 Resp 16 16 B/P (MAP) 122/65 (84) 140/72 (94) Pulse Ox 94 97 95 94 O2 Delivery Room Air Nasal Cannula Nasal Cannula Room Air O2 Flow Rate 3.0 2.0 3.0 05/11/20 05/11/20 05/11/20 05/11/20 19:11 20:00 20:00 21:00 Temp 98.8 98.8 Pulse 79 Resp 16 B/P (MAP) 141/84 (103) Pulse Ox 94 O2 Delivery Room Air Nasal Cannula Nasal Cannula Nasal Cannula O2 Flow Rate 3.0 3.0 3.0 3.0 05/11/20 05/11/20 05/11/20 05/12/20 21:26 21:26 23:29 02:48 Temp 99.9 98.8 99.9 98.8 Pulse 79 79 92 98 Resp 18 16 B/P (MAP) 141/84 141/84 131/70 (90) 131/72 (91) Pulse Ox 97 92 O2 Delivery Nasal Cannula Room Air O2 Flow Rate 3.0 3.0 05/12/20 05/12/20 05/12/20 05/12/20 05:55 06:55 07:00 09:17 Temp 98.1 98.1 Pulse 96 96 Resp 18 B/P (MAP) 143/73 (96) 143/73 Pulse Ox 94 O2 Delivery Nasal Cannula Nasal Cannula Room Air O2 Flow Rate 3.0 2.0 3.0 Intake and Output 05/11/20 05/11/20 05/12/20 15:00 23:00 07:00 Intake Total 418 ml 970 ml 1600 ml Balance 418 ml 970 ml 1600 ml BENJIE CHANEL MD May 12, 2020 09:24
[2020-05-12 10:08] LABS: ALBUMIN 2.9 g/dL (3.4-5.0); ALBUMIN/GLOBULIN RATIO 0.9 (1.0-1.7); CREATININE 0.8 mg/dL (0.7-1.3); GFR 113.5; POTASSIUM 4.1 mmol/L (3.5-5.1); TOTAL BILIRUBIN 5.2 mg/dL (0.2-1.0); TOTAL PROTEIN 6.3 g/dL (6.4-8.2)
[2020-05-12 11:00] VITALS: BP 115/67
--- NOTE | 2020-05-12 11:53 | PDOC ---
Objective: Objective: No GI concerns per nurse - pt reports abd pain. Vital Signs: Vital Signs Date Time Temp Pulse Resp B/P (MAP) Pulse Ox O2 Delivery O2 Flow Rate FiO2 05/12/20 09:17 96 143/73 05/12/20 07:00 98.1 18 94 Room Air 3.0 98.1 Labs: Laboratory Tests Test 05/12/20 09:45 Sodium Level 136 mmol/L Potassium Level 4.1 mmol/L Chloride Level 102 mmol/L Carbon Dioxide Level 30 mmol/L Anion Gap 4 Blood Urea Nitrogen 12 mg/dL Creatinine 0.8 mg/dL Estimated GFR (Cockcroft-Gault) 113.5 BUN/Creatinine Ratio 15 Glucose Level 115 mg/dL Calcium Level 8.0 mg/dL Total Bilirubin 5.2 mg/dL Aspartate Amino Transf (AST/SGOT) 164 U/L Alanine Aminotransferase (ALT/SGPT) 83 U/L Alkaline Phosphatase 212 U/L Total Protein 6.3 g/dL Albumin 2.9 g/dL Albumin/Globulin Ratio 0.9 PE: GEN: was sleeping, has 1:1 NEURO/PSYCH: mumbling A/P: SI Chronic pain Alcoholic cirrhosis and +AAT MZ phenotype, h/o esophageal varices (banded 2019), chronically elevated LFTs Known cholelithiasis - poor surgical candidate -- Noted LFTs. Continue support. Justicifation of Admission Dx: Justifications for Admission: Justification of Admission Dx: Yes Altered Mental Status: Altered Mental Status JANET STEWART May 12, 2020 11:53
--- NOTE | 2020-05-12 13:37 | NUR ---
1:1 OBSERVATION WAS CANCELLED AT 1300. PATIENT SLEEPING AND BED ALARM IS SET
[2020-05-12] MEDS ORDERED: hydrOXYzine 25 MG TABLET PO PRN (14:13)
[2020-05-12 14:23] VITALS: BP 139/75
--- NOTE | 2020-05-12 17:22 | NUR ---
Non administered afternoon doses of medication per primary wants patient more alert and oriented to prepare for discharge on tomorrow
[2020-05-12 19:38] VITALS: BP 127/75
[2020-05-12] MEDS: LACTOBACILLUS RHAMNOSUS GG 1 CAPSULE. PO SCH (19:57)
[2020-05-12] MEDS: traZODone 100 MG TABLET. PO SCH (19:58)
[2020-05-12] MEDS: PRAZOSIN 1 MG CAPSULE. PO SCH (19:59)
[2020-05-12 22:34] VITALS: BP 137/74
[2020-05-13] MEDS: LORazepam 1 MG TABLET PO PRN (01:17)
[2020-05-13 02:22] VITALS: BP 143/77
[2020-05-13 03:49] LABS: BASO % 0 % (0-3); EOS # 0.1 x10^3/uL (0.0-0.7); EOS % 2 % (0-3); HEMATOCRIT 34.3 % (39.0-53.0); HEMOGLOBIN 11.7 g/dL (13.0-17.5); LYMPH # 0.7 x10^3/uL (1.0-4.8); LYMPH % 30 % (24-48); MEAN CORPUSCULAR HEMOGLOBIN 33 pg (25-35); MEAN CORPUSCULAR HGB CONC 34 g/dL (31-37); MEAN CORPUSCULAR VOLUME 96 fL (79-100); MONO # 0.3 x10^3/uL (0.0-1.1); MONO % 11 % (0-9); NEUT # 1.3 x10^3/uL (1.8-7.7); NEUT % 56 % (31-73); PLATELET COUNT 33 x10^3/uL (140-400); RED BLOOD COUNT 3.57 x10^6/uL (4.30-5.70); RED CELL DISTRIBUTION WIDTH 16.6 % (11.5-14.5); WHITE BLOOD COUNT 2.4 x10^3/uL (4.0-11.0)
--- NOTE | 2020-05-13 04:11 | NUR ---
Pt has been confused, hallucinating throughout shift, unable to reorient mentally. Pt has received ativan IV and PO multiple times without positive results. Pt states wanting to leave multiple times, d/w pt outcomes of leaving AMA vs. waiting or physicians for d/c orders. Pt has been agitated multiple times, requiring electrician apprentice powerhouse visits to pts room, to clarify situation. Pt is having tremors, diaphoretic, c/o severe headache, requesting dilaudid for pain relief, diaudid was removed from EMAR on day shift.
[2020-05-13 04:12] LABS: ALBUMIN 2.8 g/dL (3.4-5.0); ALBUMIN/GLOBULIN RATIO 0.8 (1.0-1.7); CALCIUM 8.1 mg/dL (8.5-10.1); CREATININE 0.8 mg/dL (0.7-1.3); GFR 113.5; MAGNESIUM 1.5 mg/dL (1.8-2.4); POTASSIUM 4.3 mmol/L (3.5-5.1); TOTAL PROTEIN 6.2 g/dL (6.4-8.2)
[2020-05-13] MEDS ORDERED: HALOPERIDOL 5 MG TABLET. PO ONE (06:30)
[2020-05-13 07:00] VITALS: BP 155/72
[2020-05-13] MEDS ORDERED: CIPR250T30 PO (08:17)
--- NOTE | 2020-05-13 08:21 | PDOC3 ---
Discharge Summary Visit Information Date of Admission: May 10, 2020 Date of Discharge: May 13, 2020 Final Diagnosis Suicidal ideation - with plan to stab himself, WAS DRUNK ON ADMIT EtOH abuse - with acute intoxication on admission. 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 Will cont his home medications which have helped reduce his hospitalizations Smoker - counseled on cessation Alpha-1 antitrypsin deficiency - MZ mutation - increases his risk of liver disease given his ETOH abuse DJD - pain control Transaminitis - fits ETOH pattern. trend Hepatic cirrhosis and findings of portal hypertension , C/W END ORGAN INJURY. Bilirubin 2.4 Esophageal varices - numerous, Varices with stigmata of recent bleeding; all 3 banded. 02/21 Gallstone lodged at the gallbladder neck, no gallbladder wall thickening - seen by general surgery previously, no indication for surgery Hypokalemia - will replace Problems Medical Problems: (1) Alcohol intoxication Status: Chronic (2) Planning to commit suicide Status: Acute (3) Suicidal ideation Status: Acute Brief Hospital Course Allergies Allergies Coded Allergies Type Severity Reaction Last Updated Verified adhesive tape Allergy Intermediate Rash 02/22/20 Yes Vital Signs Vital Signs Date Time Temp Pulse Resp B/P (MAP) Pulse Ox O2 Delivery O2 Flow Rate FiO2 05/13/20 02:22 98.4 98 20 143/77 (99) 93 Room Air 98.4 05/12/20 19:38 3.0 Lab Results Laboratory Tests Test 05/12/20 09:45 05/13/20 03:40 Sodium Level 136 mmol/L (136-145) 135 mmol/L (136-145) Potassium Level 4.1 mmol/L (3.5-5.1) 4.3 mmol/L (3.5-5.1) Chloride Level 102 mmol/L (98-107) 102 mmol/L (98-107) Carbon Dioxide Level 30 mmol/L (21-32) 26 mmol/L (21-32) Anion Gap 4 (6-14) 7 (6-14) Blood Urea Nitrogen 12 mg/dL (8-26) 10 mg/dL (8-26) Creatinine 0.8 mg/dL (0.7-1.3) 0.8 mg/dL (0.7-1.3) Estimated GFR (Cockcroft-Gault) 113.5 113.5 BUN/Creatinine Ratio 15 (6-20) 13 (6-20) Glucose Level 115 mg/dL (70-99) 114 mg/dL (70-99) Calcium Level 8.0 mg/dL (8.5-10.1) 8.1 mg/dL (8.5-10.1) Total Bilirubin 5.2 mg/dL (0.2-1.0) 4.0 mg/dL (0.2-1.0) Aspartate Amino Transf (AST/SGOT) 164 U/L (15-37) 135 U/L (15-37) Alanine Aminotransferase (ALT/SGPT) 83 U/L (16-63) 73 U/L (16-63) Alkaline Phosphatase 212 U/L (46-116) 214 U/L (46-116) Total Protein 6.3 g/dL (6.4-8.2) 6.2 g/dL (6.4-8.2) Albumin 2.9 g/dL (3.4-5.0) 2.8 g/dL (3.4-5.0) Albumin/Globulin Ratio 0.9 (1.0-1.7) 0.8 (1.0-1.7) White Blood Count 2.4 x10^3/uL (4.0-11.0) Red Blood Count 3.57 x10^6/uL (4.30-5.70) Hemoglobin 11.7 g/dL (13.0-17.5) Hematocrit 34.3 % (39.0-53.0) Mean Corpuscular Volume 96 fL (79-100) Mean Corpuscular Hemoglobin 33 pg (25-35) Mean Corpuscular Hemoglobin Concent 34 g/dL (31-37) Red Cell Distribution Width 16.6 % (11.5-14.5) Platelet Count 33 x10^3/uL (140-400) Neutrophils (%) (Auto) 56 % (31-73) Lymphocytes (%) (Auto) 30 % (24-48) Monocytes (%) (Auto) 11 % (0-9) Eosinophils (%) (Auto) 2 % (0-3) Basophils (%) (Auto) 0 % (0-3) Neutrophils # (Auto) 1.3 x10^3/uL (1.8-7.7) Lymphocytes # (Auto) 0.7 x10^3/uL (1.0-4.8) Monocytes # (Auto) 0.3 x10^3/uL (0.0-1.1) Eosinophils # (Auto) 0.1 x10^3/uL (0.0-0.7) Basophils # (Auto) 0.0 x10^3/uL (0.0-0.2) Magnesium Level 1.5 mg/dL (1.8-2.4) Ammonia 92 mcmol/L (11-34) Laboratory Tests Test 05/12/20 09:45 05/13/20 03:40 Sodium Level 136 mmol/L (136-145) 135 mmol/L (136-145) Potassium Level 4.1 mmol/L (3.5-5.1) 4.3 mmol/L (3.5-5.1) Chloride Level 102 mmol/L (98-107) 102 mmol/L (98-107) Carbon Dioxide Level 30 mmol/L (21-32) 26 mmol/L (21-32) Anion Gap 4 (6-14) 7 (6-14) Blood Urea Nitrogen 12 mg/dL (8-26) 10 mg/dL (8-26) Creatinine 0.8 mg/dL (0.7-1.3) 0.8 mg/dL (0.7-1.3) Estimated GFR (Cockcroft-Gault) 113.5 113.5 BUN/Creatinine Ratio 15 (6-20) 13 (6-20) Glucose Level 115 mg/dL (70-99) 114 mg/dL (70-99) Calcium Level 8.0 mg/dL (8.5-10.1) 8.1 mg/dL (8.5-10.1) Total Bilirubin 5.2 mg/dL (0.2-1.0) 4.0 mg/dL (0.2-1.0) Aspartate Amino Transf (AST/SGOT) 164 U/L (15-37) 135 U/L (15-37) Alanine Aminotransferase (ALT/SGPT) 83 U/L (16-63) 73 U/L (16-63) Alkaline Phosphatase 212 U/L (46-116) 214 U/L (46-116) Total Protein 6.3 g/dL (6.4-8.2) 6.2 g/dL (6.4-8.2) Albumin 2.9 g/dL (3.4-5.0) 2.8 g/dL (3.4-5.0) Albumin/Globulin Ratio 0.9 (1.0-1.7) 0.8 (1.0-1.7) White Blood Count 2.4 x10^3/uL (4.0-11.0) Red Blood Count 3.57 x10^6/uL (4.30-5.70) Hemoglobin 11.7 g/dL (13.0-17.5) Hematocrit 34.3 % (39.0-53.0) Mean Corpuscular Volume 96 fL (79-100) Mean Corpuscular Hemoglobin 33 pg (25-35) Mean Corpuscular Hemoglobin Concent 34 g/dL (31-37) Red Cell Distribution Width 16.6 % (11.5-14.5) Platelet Count 33 x10^3/uL (140-400) Neutrophils (%) (Auto) 56 % (31-73) Lymphocytes (%) (Auto) 30 % (24-48) Monocytes (%) (Auto) 11 % (0-9) Eosinophils (%) (Auto) 2 % (0-3) Basophils (%) (Auto) 0 % (0-3) Neutrophils # (Auto) 1.3 x10^3/uL (1.8-7.7) Lymphocytes # (Auto) 0.7 x10^3/uL (1.0-4.8) Monocytes # (Auto) 0.3 x10^3/uL (0.0-1.1) Eosinophils # (Auto) 0.1 x10^3/uL (0.0-0.7) Basophils # (Auto) 0.0 x10^3/uL (0.0-0.2) Magnesium Level 1.5 mg/dL (1.8-2.4) Ammonia 92 mcmol/L (11-34) Brief Hospital Course Mr Dsouza is a 30yo M w/ PMHx schizophrenia, multiple suicidal attempts (6 in the past year at [facility]), alcohol abuse, DJD, smoker, alpha-1 antitrypsin deficiency (MZ phenotype), and cirrhosis of the liver with variceal banding who p/w suicidal ideation. He called 911 as he felt the urge to stab himself in the chest to end his life. Initially cooperative with medics, though became agitated and attempted to bite himself and the medics. 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 He arrived very combative and in an agitated and intoxicated state and was temporarily placed in 4 point restraints after attempting to bite EMS. He was given additional geodon 20 mg IM with efficacy. ROS notable for SI, as well as some reported hematuria for at least a month. Discharge Information Condition at Discharge: Improved Follow Up: Weeks Disposition/Orders: D/C to Home Scheduled Benztropine Mesylate (Benztropine Mesylate) 0.5 Mg Tablet, 1 TAB PO BID for EPS for 30 Days, #60 Ref 2 Prescribed by: BENJIE CHANEL MD on 12/26/19 0824 Last Action: Converted on 05/10/202241 by BENJIE CHANEL MD Ciprofloxacin Hcl (Cipro) 250 Mg Tablet, 500 MG PO BID for uti, #12 Prescribed by: LIAN STRATTON on 05/13/20 0817 Ferrous Sulfate (Feosol) 325 Mg Tablet, 325 MG PO DAILYWBKFT for 30 Days, #30 Prescribed by: YAYA MORTENSEN MD on 06/24/17 1218 Last Action: Continued on 05/10/202241 by BENJIE CHANEL MD Folic Acid (Folic Acid) 1 Mg Tablet, 1 TAB PO DAILY for liver, #90 Ref 1 Prescribed by: KUSH SOFIA on 07/07/19 1126 Last Action: Continued on 05/10/202241 by BENJIE CHNAEL MD Gabapentin (Gabapentin) 300 Mg Capsule, 300 MG PO TID for ETOH dependence for 30 Days, #90 Ref 2 Prescribed by: BENJIE CHANEL MD on 02/28/20 1238 Last Action: Continued on 05/10/202241 by BENJIE CHANEL MD Hydroxyzine Hcl (Hydroxyzine Hcl) 25 Mg Tablet, 3 TAB PO TID for anxiety, (Reported) Entered as Reported by: AIME TOMPKINS RN on 08/18/19 1715 Last Action: Continued on 05/10/202241 by BENJIE CHANEL MD Lactulose (Lactulose) 20 Gm/30 Ml Solution, 20 GM PO TID for constipatrion for 30 Days, #2700 Ref 2 Prescribed by: BENJIE CHANEL MD on 12/26/19 0823 Last Action: Continued on 05/10/202241 by BENJIE CHANEL MD Multivitamin (Multivitamins) 1 Each Tablet, 1 TAB PO DAILY for liver, #90 Ref 3 Prescribed by: KUSH SOFIA on 07/07/19 1126 Last Action: Converted on 05/10/202241 by BENJIE CHANEL MD Olanzapine (Zyprexa) 5 Mg Tablet, 1 TAB PO QHS for Anxiety, (Reported) Entered as Reported by: HANK JOHN on 08/20/19 2100 Last Action: Continued on 05/10/202241 by BENJIE CHANEL MD Pantoprazole Sodium (Pantoprazole Sodium ) 40 Mg Tablet.dr, 40 MG PO DAILYAC for transient hematemesis, #60 Prescribed by: SONAL SANDS on 09/14/19 0837 Last Action: Continued on 05/10/202241 by BENJIE CHANEL MD Prazosin Hcl (Prazosin Hcl) 1 Mg Capsule, 1 CAP PO QHS for anxiety/depression for 30 Days, #30 Ref 2 Prescribed by: BENJIE CHANEL MD on 12/26/19 0823 Last Action: Continued on 05/10/202241 by BENJIE CHANEL MD Propranolol Hcl (Propranolol Hcl) 10 Mg Tablet, 10 MG PO BID for Varices for 30 Days, #60 Ref 2 Prescribed by: BENJIE CHANEL MD on 02/28/20 1238 Last Action: Continued on 05/10/202241 by BENJIE CHANEL MD Rifaximin (Xifaxan) 550 Mg Tablet, 550 MG PO Q12HR for Cirrhosis for 30 Days, #60 Ref 2 Prescribed by: BENJIE CHANEL MD on 12/26/19822 Thiamine Hcl (Vitamin B-1) 100 Mg Tablet, 100 MG PO DAILY for liver for 30 Days, #30 Prescribed by: KUSH SOFIA on 07/07/191125 Last Action: Converted on 05/10/202241 by BENJIE CHANEL MD Trazodone Hcl (Trazodone Hcl) 100 Mg Tablet, 100 MG PO QHS for Depression/Sleep for 30 Days, #30 Ref 2 Prescribed by: BENJIE CHANEL MD on 12/26/19822 Last Action: Continued on 05/10/202241 by BENJIE CHANEL MD Ziprasidone Hcl (Geodon) 20 Mg Capsule, 20 MG PO BID for Mood Stabilizer for 30 Days, #60 Ref 2 Prescribed by: BENJIE CHANEL MD on 12/26/19822 Last Action: Continued on 05/10/202241 by BENJIE CHANEL MD Scheduled PRN Buspirone Hcl (Buspirone Hcl) 5 Mg Tablet, 5 MG PO PRN TID PRN for Anxiety for 30 Days, #60 Prescribed by: BENJIE CHANEL MD on 01/24/20 1106 Last Action: Continued on 05/10/202241 by BENJIE CHANEL MD Clonidine Hcl (Catapres) 0.1 Mg Tablet, 0.1 MG PO PRN Q1HR PRN for SBP > 180 or DBP > 100, MRX3 for 7 Days, #14 Can take for withdrawal symptoms Prescribed by: BENJIE CHANEL MD on 12/26/19822 Last Action: Continued on 05/10/202241 by BENJIE CHANEL MD Discontinued Medications Hydromorphone Hcl (Dilaudid) 2 Mg Tablet, 2 MG PO PRN Q8HRS PRN for PAIN for 6 Days, #15 Prescribed by: BENJIE CHANEL MD on 02/28/20 1238 Last Action: Continued on 05/10/202312 by BERNICE BARAHONA RN Patient Instructions Patient Instructions [Prior admissions to [facility]: 06/21/2017 - 06/25/2017 - Suicidal ideation and alcoholic intoxication. PAT team for suicidal ideation and was cleared for discharge to home rather than innj tient psychiatric admission. EGD 06/25/2017 - small varices and patchy portal gastropathy 06/30/2019 - 07/07/2019 - EGD on 07/01/2019 grade 2 varices with scarring, probably from prior banding in the distal third of the esophagus. Two 1-2 mm linear ulcerations were noted in the distal esophagus. Diffuse portal hypertensive gastropathy was also noted. 06/16/2019 - 06/22/2019 - UGIB 06/23/2019 - 09/02/2019 - Suicide attempt, cut wrists and ETOH intoxication, acute psychosis. Involuntarily committed to [facility] 09/10/2019 - 09/14/2019 - ETOH intoxication 09/16/2019 - 09/21/2019 - Wrist cutting, mother called adult protective services. ETOH intoxication 11/02/2019 - 11/03/2019 - GB disease 12/19/2019 - 12/26/2019 - ETOH intoxication, suicidal ideation 01/10/2020 - 01/13/2020 - ETOH intoxication TIme > 30 min face to face today Justicifation of Admission Dx: Justifications for Admission: Justification of Admission Dx: Yes Altered Mental Status: Altered Mental Status LIAN STRATTON MD May 13, 2020 08:21
[2020-05-13] MEDS: FERROUS SULFATE 325 MG TABLET. PO SCH (08:50)
[2020-05-13] MEDS: BENZTROPINE MESYLATE 1 MG TABLET. PO SCH (08:50)
[2020-05-13] MEDS: PANTOPRAZOLE 40 MG TABLET.DR. PO SCH (08:50)
[2020-05-13] MEDS: ZIPRASIDONE 20 MG CAPSULE PO SCH (08:50)
[2020-05-13 08:51] VITALS: BP 155/72
[2020-05-13] MEDS: OLANZapine 2.5 MG TABLET PO SCH (08:51)
[2020-05-13] MEDS: GABAPENTIN 300 MG CAPSULE. PO SCH (08:51)
[2020-05-13] MEDS: LACTOBACILLUS RHAMNOSUS GG 1 CAPSULE. PO SCH (08:51)
[2020-05-13] MEDS: PROPRANOLOL 10 MG TABLET. PO SCH (08:51)
[2020-05-13] MEDS: LACTULOSE 20 GM/30 ML SOLUTION. PO SCH (08:51)
[2020-05-13] MEDS: MUPIROCIN 2 % TOPICAL CREAM 30GM TUBE. TP SCH (08:52)
[2020-05-13] MEDS ORDERED: CIPROFLOXACIN HCL 250 MG TABLET. PO SCH (09:00)
[2020-05-15] MEDS ORDERED: MULTIVITAMIN with MINERAL TABLET. PO SCH (09:00)
[2020-05-15] MEDS ORDERED: FOLIC ACID 1 MG TABLET. PO SCH (09:00)
[2020-05-15] MEDS ORDERED: THIAMINE 100 MG TABLET. PO SCH (09:00)
== END 2020-05-13 13:22 | disposition home or self-care (01) | DRG 432 ==
LOC: ER 16:30 → 2 SOUTH 21:07
PROVIDERS: ADMIT Internal Medicine; ATTEND Internal Medicine
DX: K70.10 Alcoholic hepatitis without ascites (principal); G92 Toxic encephalopathy; R45.851 Suicidal ideations; N39.0 Urinary tract infection, site not specified; K76.6 Portal hypertension; E87.6 Hypokalemia; F10.229 Alcohol dependence with intoxication, unspecified; K21.9 Gastro-esophageal reflux disease without esophagitis; D69.59 Other secondary thrombocytopenia; E83.42 Hypomagnesemia; E88.01 Alpha-1-antitrypsin deficiency; K70.30 Alcoholic cirrhosis of liver without ascites; F17.210 Nicotine dependence, cigarettes, uncomplicated; F25.0 Schizoaffective disorder, bipolar type; F41.1 Generalized anxiety disorder; Y90.8 Blood alcohol level of 240 mg/100 ml or more; G89.29 Other chronic pain; K57.90 Diverticulosis of intestine, part unspecified, without perforation or abscess without bleeding; I10 Essential (primary) hypertension; M19.90 Unspecified osteoarthritis, unspecified site; K80.20 Calculus of gallbladder without cholecystitis without obstruction; R31.9 Hematuria, unspecified; Z79.899 Other long term (current) drug therapy; Z91.048 Other nonmedicinal substance allergy status; Z83.79 Family history of other diseases of the digestive system; Z81.8 Family history of other mental and behavioral disorders; Z71.6 Tobacco abuse counseling; Z81.1 Family history of alcohol abuse and dependence
CPT/HCPCS: 36415; 80053; 80307; 80329; 81001; 82140; 83735; 85025; 93005; 96372; 96374; G0480; J0696; J0744; J2060; J3475; J3486; 99285-25; G0378

== ENCOUNTER 2020-06-07 03:03 | Emergency (ER) | payer MEDICARE, MEDICAID ==
[~2020-06-07] VITALS: Ht 182.9 cm; Wt 100.0 kg
[~2020-06-07 03:03] MED LIST changes: +CIPR250T30 PO
--- NOTE | 2020-06-07 03:12 | PHYS DOC ---
Past Medical History Past Medical History: Alcoholism, Depression, Schizophrenia, Other Additional Past Medical Histor: TACHYCARDIA, alpha 1 antitrypsin deficiency, DDD,esophogeal varicies (KIMBERLYNDAVELI,JANUSZ E DO) Past Surgical History: Other Additional Past Surgical Histo: esophogeal varicies banding (GOLONIEL,JANUSZ E DO) Smoking Status: Current Some Day Smoker Alcohol Use: Heavy Drug Use: None (MARS,JANUSZ E DO) General Adult EDM: Chief Complaint: SUICDAL IDEATION HPI: HPI: Patient is a 30 year old male who is brought by EMS to the ER with a chief complaint of suicidal ideation. EMS state that patient was walking on the street making suicidal statement. When police and EMS got there patient was combative and so patient was given 20 mg ketamine IM. Currently patient is asleep but maintaining oxygenation of 93% on room air. (MARSJANUSZWILLIAM Felix DO) Review of Systems: Review of Systems: Unable to perform review of systems secondary to patient's mental status. (MARSJANUSZWILLIAM Felix DO) Heart Score: Risk Factors: Risk Factors: DM, Current or recent (<one month) smoker, HTN, HLP, family history of CAD, obesity. Risk Scores: Score 0 - 3: 2.5% MACE over next 6 weeks - Discharge Home Score 4 - 6: 20.3% MACE over next 6 weeks - Admit for Clinical Observation Score 7 - 10: 72.7% MACE over next 6 weeks - Early Invasive Strategies (KIMBERLYNPALLI,JANUSZ E DO) Allergies: Allergies: Allergies Coded Allergies Type Severity Reaction Last Updated Verified adhesive tape Allergy Intermediate Rash 02/22/20 Yes (KIMBERLYNPALWILLIAM,JANUSZ E DO) Physical Exam: PE: Constitutional: Well developed, well nourished, no acute distress, non-toxic appearance. [] HENT: Normocephalic, atraumatic Neck: Normal range of motion, Cardiovascular:Heart rate regular rhythm Lungs & Thorax: Bilateral rhonchi [] Abdomen: Bowel sounds normal, soft, no tenderness Extremities: No tenderness, ROM intact Neurologic: Sleeping (MARS,JANUSZ E DO) EKG: EKG: [] (PATRICLI,JANUSZ E DO) Radiology/Procedures: Radiology/Procedures: [] (MARS,JANUSZ E DO) Course & Med Decision Making: Course & Med Decision Making Pertinent Labs and Imaging studies reviewed. (See chart for details) Order 1 L IV fluids and medical clearance labs. Alcohol is 307. Will wait for patient to be medically cleared for PAT consult. patient care turned over to Dr Dockery at shift change. (JANUSZ CREWS DO) Course & Med Decision Making Patient re-evaluated. Requesting pain medications-- states if he doesnt get pain medicaitons he wants to be discharged. Patient sober--- axox4-- he denies HI and SI. Patient examined by PAT and cleared. Patient discharged. (GWEN MILLER DO) Dragon Disclaimer: Dragon Disclaimer: This electronic medical record was generated, in whole or in part, using a voice recognition dictation system. (JANUSZ CREWS DO) Departure Departure Impression: Primary Impression: Alcohol intoxication Additional Impression: Aggressive behavior Disposition: 01 HOME, SELF-CARE Condition: STABLE Referrals: UNKNOWN PCP NAME (PCP) Patient Instructions: Alcohol Intoxication Justicifation of Admission Dx: Justifications for Admission: Justification of Admission Dx: Yes Altered Mental Status: Altered Mental Status (JANUSZ CREWS DO) JANUSZ CREWS DO Jun 07, 2020 03:12 GWEN MLILER DO Jun 07, 2020 19:53
[2020-06-07 03:26] LABS: BASO % 1 % (0-3); EOS # 0.1 x10^3/uL (0.0-0.7); EOS % 2 % (0-3); HEMATOCRIT 40.2 % (39.0-53.0); HEMOGLOBIN 13.5 g/dL (13.0-17.5); LYMPH # 0.8 x10^3/uL (1.0-4.8); LYMPH % 27 % (24-48); MEAN CORPUSCULAR HEMOGLOBIN 33 pg (25-35); MEAN CORPUSCULAR HGB CONC 34 g/dL (31-37); MEAN CORPUSCULAR VOLUME 97 fL (79-100); MONO # 0.3 x10^3/uL (0.0-1.1); MONO % 9 % (0-9); NEUT # 1.9 x10^3/uL (1.8-7.7); NEUT % 61 % (31-73); PLATELET COUNT 55 x10^3/uL (140-400); RED BLOOD COUNT 4.14 x10^6/uL (4.30-5.70); RED CELL DISTRIBUTION WIDTH 15.4 % (11.5-14.5); WHITE BLOOD COUNT 3.2 x10^3/uL (4.0-11.0)
[2020-06-07 03:30] LABS: BILIRUBIN,URINE NEGATIVE (NEG); CLARITY,URINE CLEAR; COLOR,URINE YELLOW; NITRITE,URINE NEGATIVE (NEG); PROTEIN,URINE NEGATIVE (NEG-TRACE)
[2020-06-07] MEDS ORDERED: IV NORMAL SALINE 1000ML BAG 1,000 ML IV ONE ×2 (03:30→06:30)
[2020-06-07 03:36] LABS: AMPHETAMINE/METHAMPHETAMINE NEG (NEG); BARBITURATES NEG (NEG); BENZODIAZEPINES NEG (NEG); CANNABINOIDS POS (NEG); COCAINE NEG (NEG); METHADONE NEG (NEG); OPIATES NEG (NEG); PHENCYCLIDINE NEG (NEG)
[2020-06-07 03:37] LABS: CALCIUM 7.6 mg/dL (8.5-10.1); CREATININE 0.9 mg/dL (0.7-1.3); GFR 99.1; POTASSIUM 3.6 mmol/L (3.5-5.1)
[2020-06-07 03:38] LABS: BACTERIA,URINE 0 /HPF (0-FEW); SQUAMOUS EPITHELIAL CELL,UR FEW /LPF; WBC,URINE OCC /HPF (0-4)
[2020-06-07 03:39] LABS: AMORPHOUS SEDIMENT,UR PRESENT /HPF
[2020-06-07 03:42] LABS: ALBUMIN 3.1 g/dL (3.4-5.0); ALBUMIN/GLOBULIN RATIO 0.8 (1.0-1.7); TOTAL BILIRUBIN 1.6 mg/dL (0.2-1.0); TOTAL PROTEIN 7.2 g/dL (6.4-8.2)
[2020-06-07 03:48] LABS: ACETAMIN < 2 mcg/ml (10-30); ETHANOL 307 mg/dL (0-10); SALIC < 2.8 mg/dL (2.8-20.0)
[2020-06-07] MEDS ORDERED: HALOPERIDOL LACTATE 5 MG/ML VIAL. ONE (11:06)
[2020-06-07] MEDS ORDERED: HALOPERIDOL LACTATE 5 MG/ML VIAL. IVP ONE ×2 (11:15)
[2020-06-07] MEDS ORDERED: chlorproMAZINE IM 25 MG/ML AMPUL IM ONE (12:45)
[2020-06-07] MEDS ORDERED: ACETAMINOPHEN 500 MG TABLET PO ONE (18:00)
[2020-06-07] MEDS ORDERED: HYDROcodone/APAP 5/325MG 1 TAB TABLET PO ONE (19:15)
[2020-06-07 20:08] VITALS: BP 122/89
== END 2020-06-07 20:15 | disposition home or self-care (01) ==
LOC: ER 03:03
DX: F10.229 Alcohol dependence with intoxication, unspecified (principal); R45.851 Suicidal ideations; R45.6 Violent behavior; Z20.818 Contact with and (suspected) exposure to other bacterial communicable diseases; F32.9 Major depressive disorder, single episode, unspecified; F20.9 Schizophrenia, unspecified; F17.200 Nicotine dependence, unspecified, uncomplicated; Z98.890 Other specified postprocedural states; Z88.8 Allergy status to other drugs, medicaments and biological substances
CPT/HCPCS: 36415; 80053; 80307; 80329; 81001; 84443; 85025; 96372; 96374; 96375; 96376; 99285; G0480; J1630; J2060; J3230; J7030; P9612; U0003

== ENCOUNTER 2020-06-08 23:51 | Emergency (ER) | payer MEDICARE, MEDICAID ==
[~2020-06-08] VITALS: Ht 172.7 cm; Wt 100.0 kg
[2020-06-09] MEDS ORDERED: ZIPRASIDONE IM 20 MG VIAL. IM ONE ×2 (00:45→00:47)
[2020-06-09 02:13] LABS: BILIRUBIN,URINE NEGATIVE (NEG); CLARITY,URINE CLEAR; COLOR,URINE YELLOW; NITRITE,URINE NEGATIVE (NEG); PROTEIN,URINE NEGATIVE (NEG-TRACE); UROBILINOGEN,URINE 0.2 mg/dL (0.2 mg/dL)
[2020-06-09 02:19] LABS: BARBITURATES NEG (NEG); BENZODIAZEPINES NEG (NEG); CANNABINOIDS NEG (NEG); COCAINE NEG (NEG); METHADONE NEG (NEG); OPIATES NEG (NEG); PHENCYCLIDINE NEG (NEG)
[2020-06-09 02:21] LABS: AMPHETAMINE/METHAMPHETAMINE NEG (NEG)
[2020-06-09 02:25] LABS: BACTERIA,URINE 0 /HPF (0-FEW); RBC,URINE 0 /HPF (0-2); SQUAMOUS EPITHELIAL CELL,UR OCC /LPF; WBC,URINE 0 /HPF (0-4)
--- NOTE | 2020-06-09 05:33 | PHYS DOC ---
Past Medical History Past Medical History: Alcoholism, Depression, Schizophrenia, Other Additional Past Medical Histor: TACHYCARDIA, alpha 1 antitrypsin deficiency, DDD,esophogeal varicies (GWEN MILLER I ) Past Surgical History: Other Additional Past Surgical Histo: esophogeal varicies banding (GWEN MILLER DO) Smoking Status: Current Some Day Smoker Alcohol Use: Heavy Drug Use: None (GWEN MILLER DO) General Adult EDM: Chief Complaint: ALCOHOL INTOXICATION HPI: HPI: Patient is a 30 year old male presents via ems for evaluation of alcohol intoxication and SI. Patient very intoxicated. Patient told nursing that he wants help for alcohol use and stated he wanted to hurt himself. Patient did not states a specific plan to harm himself. \ (GWEN MILLER I ) HPI: 30-year-old male presented to the emergency department overnight intoxicated with some suicidal ideation. This morning he is regretful of his words and is feeling much better. We had the psychiatric assessment team evaluate the patient. Given he has no suicidal ideation at this time and is feeling much better and is calm and cooperative we will discharge him to follow-up with outpatient psychiatry. His white blood cell count was low on her blood work testing which it has been in the past. I informed the patient he can follow-up with his doctor. Patient is mentating appropriately able to walk without any assistance. He is not slurring his speech. We instructed him to return for any thoughts of suicidal ideation or any concerns for any reason. (IRENE TYLER MD) Review of Systems: Review of Systems: unable to provide ros due to alcohol intoxication (GWEN MILLER DO) Heart Score: Risk Factors: Risk Factors: DM, Current or recent (<one month) smoker, HTN, HLP, family history of CAD, obesity. Risk Scores: Score 0 - 3: 2.5% MACE over next 6 weeks - Discharge Home Score 4 - 6: 20.3% MACE over next 6 weeks - Admit for Clinical Observation Score 7 - 10: 72.7% MACE over next 6 weeks - Early Invasive Strategies (ANGELAGWEN I ) Current Medications: Current Medications Medications (Trade) Dose Ordered Sig/Renee Start Time Stop Time Status Last Admin Dose Admin Ziprasidone (Geodon Im) 20 mg STK-MED ONCE 06/09/20 00:47 06/09/20 00:47 DC (GWEN MILLER DO) Allergies: Allergies: Allergies Coded Allergies Type Severity Reaction Last Updated Verified adhesive tape Allergy Intermediate Rash 02/22/20 Yes (GWEN MILLER DO) Physical Exam: PE: Constitutional: Well developed, well nourished, no acute distress, intoxicated HENT: Normocephalic, atraumatic, Eyes: , EOMI, conjunctiva normal, no discharge. [] Neck: Normal range of motion, no tenderness, supple, no stridor. [] Cardiovascular:Heart rate regular rhythm, no murmur [] Lungs & Thorax: no respiratory distress Abdomen: soft, no tenderness, Skin: Warm, dry, no erythema, no rash. [] Back: No tenderness, no CVA tenderness. [] Extremities: No tenderness, no cyanosis, no clubbing, ROM intact, no edema. [] Neurologic: Alert ,no focal weakness, intoxicated Psychologic: stated to nursing wants to hurt himself (GWEN MILLER DO) Current Patient Data: Labs: Laboratory Tests Test 06/09/20 00:20 Urine Collection Type Unknown Urine Color Yellow Urine Clarity Clear Urine pH 7.0 (<5.0-8.0) Urine Specific [place] <=1.005 (1.000-1.030) Urine Protein Negative mg/dL (NEG-TRACE) Urine Glucose (UA) Negative mg/dL (NEG) Urine Ketones (Stick) Negative mg/dL (NEG) Urine Blood Negative (NEG) Urine Nitrite Negative (NEG) Urine Bilirubin Negative (NEG) Urine Urobilinogen Dipstick 0.2 mg/dL (0.2 mg/dL) Urine Leukocyte Esterase Negative (NEG) Urine RBC 0 /HPF (0-2) Urine WBC 0 /HPF (0-4) Urine Squamous Epithelial Cells Occ /LPF Urine Bacteria 0 /HPF (0-FEW) Urine Opiates Screen Neg (NEG) Urine Methadone Screen Neg (NEG) Urine Barbiturates Neg (NEG) Urine Phencyclidine Screen Neg (NEG) Urine Amphetamine/Methamphetamine Neg (NEG) Urine Benzodiazepines Screen Neg (NEG) Urine Cocaine Screen Neg (NEG) Urine Cannabinoids Screen Neg (NEG) Urine Ethyl Alcohol Pos (NEG) Vital Signs: Vital Signs Date Time Temp Pulse Resp B/P (MAP) Pulse Ox O2 Delivery O2 Flow Rate FiO2 06/09/20 00:05 98.4 123 18 112/50 (70) 91 Room Air 98.4 (GWEN MILLER DO) EKG: EKG: [] (GWEN MILLER DO) Radiology/Procedures: Radiology/Procedures: [] (GWEN MILLER DO) Course & Med Decision Making: Course & Med Decision Making Pertinent Labs and Imaging studies reviewed. (See chart for details) [] (GWEN MILLER DO) Dragon Disclaimer: Dragon Disclaimer: This electronic medical record was generated, in whole or in part, using a voice recognition dictation system. (GWEN MILLER DO) Departure Departure Impression: Primary Impression: Alcohol intoxication Disposition: HOME, SELF-CARE Condition: STABLE Referrals: UNKNOWN PCP NAME (PCP) Justicifation of Admission Dx: Justifications for Admission: Justification of Admission Dx: Yes Altered Mental Status: Altered Mental Status (GWEN MILLER DO) GWEN MILLER DO Jun 09, 2020 05:33 IRENE TYLER MD Jun 09, 2020 10:15
[2020-06-09 07:57] LABS: CALCIUM 7.5 mg/dL (8.5-10.1); CREATININE 0.7 mg/dL (0.7-1.3); GFR 132.4; POTASSIUM 3.7 mmol/L (3.5-5.1)
[2020-06-09 08:02] LABS: ALBUMIN 2.7 g/dL (3.4-5.0); ALBUMIN/GLOBULIN RATIO 0.7 (1.0-1.7); TOTAL BILIRUBIN 1.2 mg/dL (0.2-1.0); TOTAL PROTEIN 6.4 g/dL (6.4-8.2)
[2020-06-09 08:06] LABS: BASO % 1 % (0-3); EOS # 0.1 x10^3/uL (0.0-0.7); EOS % 3 % (0-3); HEMATOCRIT 37.7 % (39.0-53.0); HEMOGLOBIN 12.7 g/dL (13.0-17.5); LYMPH # 0.7 x10^3/uL (1.0-4.8); LYMPH % 34 % (24-48); MEAN CORPUSCULAR HEMOGLOBIN 33 pg (25-35); MEAN CORPUSCULAR HGB CONC 34 g/dL (31-37); MEAN CORPUSCULAR VOLUME 97 fL (79-100); MONO # 0.2 x10^3/uL (0.0-1.1); MONO % 8 % (0-9); NEUT # 1.1 x10^3/uL (1.8-7.7); NEUT % 54 % (31-73); PLATELET COUNT 40 x10^3/uL (140-400); RED BLOOD COUNT 3.89 x10^6/uL (4.30-5.70); RED CELL DISTRIBUTION WIDTH 15.2 % (11.5-14.5); WHITE BLOOD COUNT 2.1 x10^3/uL (4.0-11.0)
[2020-06-09 09:56] VITALS: BP 105/55
== END 2020-06-09 11:50 | disposition home or self-care (01) ==
LOC: ER 23:51
DX: F10.229 Alcohol dependence with intoxication, unspecified (principal); Y90.8 Blood alcohol level of 240 mg/100 ml or more; F20.9 Schizophrenia, unspecified; F32.9 Major depressive disorder, single episode, unspecified; F17.200 Nicotine dependence, unspecified, uncomplicated; Z88.8 Allergy status to other drugs, medicaments and biological substances
CPT/HCPCS: 36415; 80053; 80307; 81001; 85025; 96372; 99285; G0480; J3486

== ENCOUNTER 2020-06-14 12:47 | Emergency (ER) | payer MEDICARE, MEDICAID ==
[~2020-06-14] VITALS: Ht 177.8 cm; Wt 94.0 kg
[2020-06-14] MEDS ORDERED: chlorproMAZINE IM 25 MG/ML AMPUL IM ONE (13:30)
[2020-06-14 14:20] LABS: BASO % 1 % (0-3); EOS # 0.1 x10^3/uL (0.0-0.7); EOS % 3 % (0-3); HEMATOCRIT 42.9 % (39.0-53.0); HEMOGLOBIN 14.4 g/dL (13.0-17.5); LYMPH # 0.9 x10^3/uL (1.0-4.8); LYMPH % 30 % (24-48); MEAN CORPUSCULAR HEMOGLOBIN 33 pg (25-35); MEAN CORPUSCULAR HGB CONC 34 g/dL (31-37); MEAN CORPUSCULAR VOLUME 97 fL (79-100); MONO # 0.2 x10^3/uL (0.0-1.1); MONO % 7 % (0-9); NEUT # 1.8 x10^3/uL (1.8-7.7); NEUT % 59 % (31-73); PLATELET COUNT 59 x10^3/uL (140-400); RED BLOOD COUNT 4.43 x10^6/uL (4.30-5.70); RED CELL DISTRIBUTION WIDTH 16.1 % (11.5-14.5)
[2020-06-14 14:36] LABS: CALCIUM 7.7 mg/dL (8.5-10.1); CREATININE 0.8 mg/dL (0.7-1.3); GFR 113.5
[2020-06-14 14:40] LABS: PLT ESTIMATE DECREASED (ADEQUATE)
[2020-06-14 14:44] LABS: ALBUMIN 3.1 g/dL (3.4-5.0); ALBUMIN/GLOBULIN RATIO 0.7 (1.0-1.7); MAGNESIUM 1.9 mg/dL (1.8-2.4); TOTAL BILIRUBIN 1.6 mg/dL (0.2-1.0); TOTAL PROTEIN 7.3 g/dL (6.4-8.2)
[2020-06-14] MEDS ORDERED: CALCIUM CHLORIDE 1,000 MG/10 ML DISP.SYRIN IV ONE (15:15)
[2020-06-14] MEDS ORDERED: IV NORMAL SALINE 1000ML BAG 1,000 ML IV ONE (15:45)
--- NOTE | 2020-06-14 15:53 | PHYS DOC ---
Past Medical History Past Medical History: Alcoholism, Depression, Schizophrenia, Other Additional Past Medical Histor: TACHYCARDIA, alpha 1 antitrypsin deficiency, DDD,esophogeal varicies (DUANE MILTON DO) Past Surgical History: Other Additional Past Surgical Histo: esophogeal varicies banding (DUANE MILTON DO) Smoking Status: Current Every Day Smoker Alcohol Use: Heavy Drug Use: None (DUANE MILTON DO) General Adult EDM: Chief Complaint: ALCOHOL INTOXICATION HPI: HPI: Patient is a 30 year old male who was brought here by EMS from home due to alcohol intoxication and suicidal ideation. Report patient got into a verbal argument with his mom this morning, he became upset and start drinking alcohol expressing desire to . However upon arrival to ER, patient denies suicidal ideation, he denies homicidal patient. He wanted to be released SIRI. Patient was aggressive to staff's, not cooperative, he had to be physically restrained due to violent. Patient has been evaluated here multiple times recently for alcohol intoxication. (DUANE MILTON DO) Review of Systems: Review of Systems: Constitutional: Denies fever or chills. [] Eyes: Denies change in visual acuity. [] HENT: Denies nasal congestion or sore throat. [] Respiratory: Denies cough or shortness of breath. [] Cardiovascular: Denies chest pain or edema. [] GI: Denies abdominal pain, nausea, vomiting, bloody stools or diarrhea. [] : Denies dysuria. [] Musculoskeletal: Denies back pain or joint pain. [] Integument: Denies rash. [] Neurologic: Denies headache, focal weakness or sensory changes. [] Endocrine: Denies polyuria or polydipsia. [] Lymphatic: Denies swollen glands. [] Psychiatric: Denies depression or anxiety. [] (DUANE MILTON DO) Heart Score: Risk Factors: Risk Factors: DM, Current or recent (<one month) smoker, HTN, HLP, family hist ory of CAD, obesity. Risk Scores: Score 0 - 3: 2.5% MACE over next 6 weeks - Discharge Home Score 4 - 6: 20.3% MACE over next 6 weeks - Admit for Clinical Observation Score 7 - 10: 72.7% MACE over next 6 weeks - Early Invasive Strategies (DUANE MILTON DO) Current Medications: Current Medications Medications (Trade) Dose Ordered Sig/Renee Start Time Stop Time Status Last Admin Dose Admin Calcium Chloride (Calcium Chloride) 1,000 mg 1X ONCE 06/14/20 15:15 06/14/20 15:16 DC Chlorpromazine HCl (Thorazine Im) 50 mg 1X ONCE 06/14/20 13:30 06/14/20 13:31 DC 06/14/20 13:24 50 MG Sodium Chloride 1,000 ml @ 1,000 mls/hr 1X ONCE 06/14/20 15:45 06/14/20 16:44 UNV (DUANE MILTON DO) Allergies: Allergies: Allergies Coded Allergies Type Severity Reaction Last Updated Verified adhesive tape Allergy Intermediate Rash 02/22/20 Yes (DUANE MILTON DO) Physical Exam: PE: Constitutional: Well developed, well nourished, agitated, noncooperative. HENT: Normocephalic, atraumatic, bilateral external ears normal, oropharynx dimitris st, no oral exudates, nose normal. [] Eyes: PERRLA, EOMI, conjunctiva normal, no discharge. [] Neck: Normal range of motion, no tenderness, supple, no stridor. [] Cardiovascular:Heart rate regular rhythm, no murmur [] Lungs & Thorax: Bilateral breath sounds clear to auscultation [] Abdomen: Bowel sounds normal, soft, no tenderness, no masses, no pulsatile masses. [] Skin: Warm, dry, no erythema, no rash. [] Back: No tenderness, no CVA tenderness. [] Extremities: No tenderness, no cyanosis, no clubbing, ROM intact, no edema. [] Neurologic: Alert and oriented X 3, normal motor function, normal sensory function, no focal deficits noted. [] Psychologic: Denies suicidal ideation, denies homicidal agent.] (DUANE MILTON DO) Current Patient Data: Labs: Laboratory Tests Test 06/14/20 14:10 White Blood Count 3.0 x10^3/uL (4.0-11.0) L Red Blood Count 4.43 x10^6/uL (4.30-5.70) Hemoglobin 14.4 g/dL (13.0-17.5) Hematocrit 42.9 % (39.0-53.0) Mean Corpuscular Volume 97 fL (79-100) Mean Corpuscular Hemoglobin 33 pg (25-35) Mean Corpuscular Hemoglobin Concent 34 g/dL (31-37) Red Cell Distribution Width 16.1 % (11.5-14.5) H Platelet Count 59 x10^3/uL (140-400) L Neutrophils (%) (Auto) 59 % (31-73) Lymphocytes (%) (Auto) 30 % (24-48) Monocytes (%) (Auto) 7 % (0-9) Eosinophils (%) (Auto) 3 % (0-3) Basophils (%) (Auto) 1 % (0-3) Neutrophils # (Auto) 1.8 x10^3/uL (1.8-7.7) Lymphocytes # (Auto) 0.9 x10^3/uL (1.0-4.8) L Monocytes # (Auto) 0.2 x10^3/uL (0.0-1.1) Eosinophils # (Auto) 0.1 x10^3/uL (0.0-0.7) Basophils # (Auto) 0.0 x10^3/uL (0.0-0.2) Platelet Estimate Decreased (ADEQUATE) Sodium Level 141 mmol/L (136-145) Potassium Level 4.0 mmol/L (3.5-5.1) Chloride Level 107 mmol/L (98-107) Carbon Dioxide Level 22 mmol/L (21-32) Anion Gap 12 (6-14) Blood Urea Nitrogen 6 mg/dL (8-26) L Creatinine 0.8 mg/dL (0.7-1.3) Estimated GFR (Cockcroft-Gault) 113.5 BUN/Creatinine Ratio 8 (6-20) Glucose Level 101 mg/dL (70-99) H Calcium Level 7.7 mg/dL (8.5-10.1) L Magnesium Level 1.9 mg/dL (1.8-2.4) Total Bilirubin 1.6 mg/dL (0.2-1.0) H Aspartate Amino Transferase (AST) 123 U/L (15-37) H Alanine Aminotransferase (ALT) 57 U/L (16-63) Alkaline Phosphatase 272 U/L (46-116) H Total Protein 7.3 g/dL (6.4-8.2) Albumin 3.1 g/dL (3.4-5.0) L Albumin/Globulin Ratio 0.7 (1.0-1.7) L Ethyl Alcohol Level 345 mg/dL (0-10) H Laboratory Tests 06/14/20 14:10 Laboratory Tests 06/14/20 14:10 Vital Signs: Vital Signs Date Time Temp Pulse Resp B/P (MAP) Pulse Ox O2 Delivery O2 Flow Rate FiO2 06/14/20 12:47 98.6 108 18 119/60 (79) 93 Room Air 98.6 (DUANE MILTON DO) EKG: EKG: [] (DUANE MILTON DO) Radiology/Procedures: Radiology/Procedures: [] (DUANE MILTON DO) Course & Med Decision Making: Course & Med Decision Making Pertinent Labs and Imaging studies reviewed. (See chart for details) Patient is a 30-year-old male who was evaluated in the ER due to alcohol intoxication. Patient was aggressive, agitated, non-cooperative. He was physically restrained, he was given 50 mg of Thorazine IM for sedation. Patient was found to be low on calcium level, he was given calcium supplement and IV fluid. Patient was found to be intoxicated. He will be reevaluated by the PAT TEAM whenever he is sobering up . At 5 PM today, patient was awake alert oriented, he feels much better now, he want to go home. Patient denies suicidal ideation, denies homicidal patient. Patient was able to ambulate by himself without any problem. Patient is medically clear at this time, checked out to Dr. Jeison Hinson at shift change awaiting for psych assessment (DUANE MILTON DO) Course & Med Decision Making 1800 Care of pt assumed from Dr. Duane Milton. Awaiting completion of psychia tric assessment. 1824 PAT team/psychiatric assessment completed. Pt is medically stable at this time. No current complaints of suicidal or homicidal thoughts. Cleared for discharge. (JEISON HINSON DO) Dragon Disclaimer: Dragon Disclaimer: This electronic medical record was generated, in whole or in part, using a voice recognition dictation system. (DUANE MILTON DO) Departure Departure Impression: Primary Impression: Alcohol intoxication Additional Impressions: Hypocalcemia Substance abuse Bicytopenia Disposition: HOME, SELF-CARE Condition: STABLE Referrals: UNKNOWN PCP NAME (PCP) Patient Instructions: Alcohol Intoxication, Thrombocytopenia, [id number] Additional Instructions: keep your appt with your psychiatric counselor, return if worsen. See your doctor about your abnormal labs Scripts Thiamine Hcl (VITAMIN B-1) 100 Mg Tablet 1 TAB PO DAILY for 30 Days, #30 TAB 0 Refills Prov: JEISON HINSON DO 06/14/20 Justicifation of Admission Dx: Justifications for Admission: Justification of Admission Dx: N/A Altered Mental Status: Altered Mental Status (DUANE MILTON DO) Justification of Admission Dx: N/A (JEISON HINSON DO) DUANE MILTON DO Jun 14, 2020 15:53 JEISON HINSON DO Jun 14, 2020 18:16
[2020-06-14 16:00] LABS: ACETAMIN < 2 mcg/ml (10-30); SALIC < 2.8 mg/dL (2.8-20.0)
[2020-06-14 16:19] LABS: BILIRUBIN,URINE SMALL (NEG); CLARITY,URINE CLEAR; NITRITE,URINE NEGATIVE (NEG); PROTEIN,URINE 100 mg/dL (NEG-TRACE)
[2020-06-14 16:24] LABS: COLOR,URINE DK YELLOW
[2020-06-14 16:26] LABS: BACTERIA,URINE 0 /HPF (0-FEW); HYALINE CASTS, URINE FEW /HPF; SQUAMOUS EPITHELIAL CELL,UR FEW /LPF
[2020-06-14 16:27] LABS: AMPHETAMINE/METHAMPHETAMINE NEG (NEG); BARBITURATES NEG (NEG); BENZODIAZEPINES NEG (NEG); CANNABINOIDS POS (NEG); COCAINE NEG (NEG); METHADONE NEG (NEG); OPIATES NEG (NEG); PHENCYCLIDINE NEG (NEG); RBC,URINE OCC /HPF (0-2); WBC,URINE 0 /HPF (0-4)
[2020-06-14] MEDS ORDERED: THIA100T57 PO (18:29)
[2020-06-14 18:30] VITALS: BP 128/72
== END 2020-06-14 19:02 | disposition home or self-care (01) ==
LOC: ER 12:47
DX: F10.229 Alcohol dependence with intoxication, unspecified (principal); E83.51 Hypocalcemia; F19.10 Other psychoactive substance abuse, uncomplicated; F32.9 Major depressive disorder, single episode, unspecified; F20.9 Schizophrenia, unspecified; F17.200 Nicotine dependence, unspecified, uncomplicated; F12.90 Cannabis use, unspecified, uncomplicated; Z98.890 Other specified postprocedural states; Z79.899 Other long term (current) drug therapy; Z88.8 Allergy status to other drugs, medicaments and biological substances
CPT/HCPCS: 36415; 80053; 80307; 80329; 81001; 83735; 85025; 96372; 96374; 99285; G0480; J3230; J3490; J7030

== ENCOUNTER 2020-09-25 07:57 | Emergency (ER) | payer MEDICARE, MEDICAID ==
[~2020-09-25] VITALS: Ht 172.7 cm; Wt 190.0 kg
[2020-09-25] MEDS ORDERED: IV NORMAL SALINE 1000ML BAG 1,000 ML IV ONE (09:30)
[2020-09-25 09:58] LABS: BILIRUBIN,URINE NEGATIVE (NEG); CLARITY,URINE CLEAR; COLOR,URINE YELLOW; NITRITE,URINE NEGATIVE (NEG); PROTEIN,URINE NEGATIVE (NEG-TRACE); UROBILINOGEN,URINE 0.2 mg/dL (0.2 mg/dL)
[2020-09-25 10:00] LABS: BASO % 1 % (0-3); EOS # 0.1 x10^3/uL (0.0-0.7); EOS % 2 % (0-3); HEMATOCRIT 39.5 % (39.0-53.0); LYMPH # 0.6 x10^3/uL (1.0-4.8); LYMPH % 23 % (24-48); MEAN CORPUSCULAR HEMOGLOBIN 32 pg (25-35); MEAN CORPUSCULAR HGB CONC 33 g/dL (31-37); MEAN CORPUSCULAR VOLUME 97 fL (79-100); MONO # 0.5 x10^3/uL (0.0-1.1); MONO % 19 % (0-9); NEUT # 1.6 x10^3/uL (1.8-7.7); NEUT % 55 % (31-73); PLATELET COUNT 64 x10^3/uL (140-400); RED BLOOD COUNT 4.07 x10^6/uL (4.30-5.70); RED CELL DISTRIBUTION WIDTH 17.3 % (11.5-14.5); WHITE BLOOD COUNT 2.8 x10^3/uL (4.0-11.0)
[2020-09-25 10:13] LABS: PROTHROMBIN TIME PATIENT 18.5 SEC (11.7-14.0)
--- NOTE | 2020-09-25 10:23 | PHYS DOC ---
Past Medical History Past Medical History: Alcoholism, Depression, Schizophrenia, Other Additional Past Medical Histor: TACHYCARDIA, alpha 1 antitrypsin deficiency, DDD,esophogeal varicies, Past Surgical History: Other Additional Past Surgical Histo: esophogeal varicies banding Smoking Status: Current Every Day Smoker Alcohol Use: Heavy Additional Information: MIRROR SINCE 09/12 SOBER AT THAT TIME Drug Use: None General Adult EDM: Chief Complaint: ABDOMINAL PAIN HPI: HPI: Patient is a 30 year old male with history of alcohol abuse, presented to ER with 3-days history of abdominal pain. Patient is currently in alcohol detox rehab. Patient denies any fever, no cough no chest pain. Patient asked that we can give him 1 mg of Dilaudid for pain control. Patient says he had paracentesis done 2 weeks ago at .. Review of Systems: Review of Systems: Constitutional: Denies fever or chills. [] Eyes: Denies change in visual acuity. [] HENT: Denies nasal congestion or sore throat. [] Respiratory: Denies cough or shortness of breath. [] Cardiovascular: Denies chest pain or edema. [] GI: Positive for abdominal pain, nausea and vomiting. : Denies dysuria. [] Musculoskeletal: Denies back pain or joint pain. [] Integument: Denies rash. [] Neurologic: Denies headache, focal weakness or sensory changes. [] Endocrine: Denies polyuria or polydipsia. [] Lymphatic: Denies swollen glands. [] Psychiatric: Denies depression or anxiety. [] Heart Score: Risk Factors: Risk Factors: DM, Current or recent (<one month) smoker, HTN, HLP, family history of CAD, obesity. Risk Scores: Score 0 - 3: 2.5% MACE over next 6 weeks - Discharge Home Score 4 - 6: 20.3% MACE over next 6 weeks - Admit for Clinical Observation Score 7 - 10: 72.7% MACE over next 6 weeks - Early Invasive Strategies Current Medications: Current Medications Medications (Trade) Dose Ordered Sig/Renee Start Time Stop Time Status Last Admin Dose Admin Sodium Chloride 1,000 ml @ 1,000 mls/hr 1X ONCE 09/25/20 09:30 09/25/20 10:29 09/25/20 09:30 1,000 MLS/HR Allergies: Allergies: Allergies Coded Allergies Type Severity Reaction Last Updated Verified adhesive tape Allergy Intermediate Rash 02/22/20 Yes Physical Exam: PE: Constitutional: Well developed, well nourished, no acute distress, non-toxic appearance. [] HENT: Normocephalic, atraumatic, bilateral external ears normal, oropharynx moist, no oral exudates, nose normal. [] Eyes: PERRLA, EOMI, conjunctiva normal, no discharge. [] Neck: Normal range of motion, no tenderness, supple, no stridor. [] Cardiovascular:Heart rate regular rhythm, no murmur [] Lungs & Thorax: Bilateral breath sounds clear to auscultation [] Abdomen: Bowel sounds normal, soft, There is tenderness to palpation diffusely, no masses, no pulsatile masses. [] Skin: Warm, dry, no erythema, no rash. [] Back: No tenderness, no CVA tenderness. [] Extremities: No tenderness, no cyanosis, no clubbing, ROM intact, no edema. [] Neurologic: Alert and oriented X 3, normal motor function, normal sensory function, no focal deficits noted. [] Psychologic: Affect normal, judgement normal, mood normal. [] Current Patient Data: Labs: Laboratory Tests Test 09/25/20 09:15 09/25/20 09:40 09/25/20 09:47 Urine Collection Type Unknown Urine Color Yellow Urine Clarity Clear Urine pH 7.0 Urine Specific [place] <=1.005 Urine Protein Negative mg/dL Urine Glucose (UA) Negative mg/dL Urine Ketones (Stick) Negative mg/dL Urine Blood Negative Urine Nitrite Negative Urine Bilirubin Negative Urine Urobilinogen Dipstick 0.2 mg/dL Urine Leukocyte Esterase Negative Urine RBC 0 /HPF Urine WBC Occ /HPF Urine Squamous Epithelial Cells Few /LPF Urine Bacteria 0 /HPF Urine Opiates Screen Neg Urine Methadone Screen Neg Urine Barbiturates Neg Urine Phencyclidine Screen Neg Urine Amphetamine/Methamphetamine Neg Urine Benzodiazepines Screen Neg Urine Cocaine Screen Neg Urine Cannabinoids Screen Neg Urine Ethyl Alcohol Neg Lipase 48 U/L White Blood Count 2.8 x10^3/uL Red Blood Count 4.07 x10^6/uL Hemoglobin 13.0 g/dL Hematocrit 39.5 % Mean Corpuscular Volume 97 fL Mean Corpuscular Hemoglobin 32 pg Mean Corpuscular Hemoglobin Concent 33 g/dL Red Cell Distribution Width 17.3 % Platelet Count 64 x10^3/uL Neutrophils (%) (Auto) 55 % Lymphocytes (%) (Auto) 23 % Monocytes (%) (Auto) 19 % Eosinophils (%) (Auto) 2 % Basophils (%) (Auto) 1 % Neutrophils # (Auto) 1.6 x10^3/uL Lymphocytes # (Auto) 0.6 x10^3/uL Monocytes # (Auto) 0.5 x10^3/uL Eosinophils # (Auto) 0.1 x10^3/uL Basophils # (Auto) 0.0 x10^3/uL Segmented Neutrophils % 42 % Band Neutrophils % 15 % Lymphocytes % 23 % Monocytes % 14 % Eosinophils % 4 % Basophils % 2 % Toxic Granulation Slight Platelet Estimate Decreased Anisocytosis Slight Prothrombin Time 18.5 SEC Prothromb Time International Ratio 1.6 Activated Partial Thromboplast Time 41 SEC Sodium Level 138 mmol/L Potassium Level 3.9 mmol/L Chloride Level 104 mmol/L Carbon Dioxide Level 22 mmol/L Anion Gap 12 Blood Urea Nitrogen 16 mg/dL Creatinine 0.8 mg/dL Estimated GFR (Cockcroft-Gault) 113.5 BUN/Creatinine Ratio 20 Glucose Level 105 mg/dL Calcium Level 9.1 mg/dL Total Bilirubin 2.3 mg/dL Aspartate Amino Transf (AST/SGOT) 90 U/L Alanine Aminotransferase (ALT/SGPT) 52 U/L Alkaline Phosphatase 202 U/L Total Protein 7.6 g/dL Albumin 3.0 g/dL Albumin/Globulin Ratio 0.7 Ethyl Alcohol Level < 10 mg/dL Current Medications Medications (Trade) Dose Ordered Sig/Renee Route PRN Reason Start Time Stop Time Status Last Admin Dose Admin Sodium Chloride 1,000 ml @ 1,000 mls/hr 1X ONCE IV 09/25/20 09:30 09/25/20 10:29 DC 09/25/20 09:30 Iohexol (Omnipaque 300 Mg/ml) 75 ml 1X ONCE IV 09/25/20 11:00 09/25/20 11:02 DC 09/25/20 11:20 Info (CONTRAST GIVEN -- Rx MONITORING) 1 each PRN DAILY PRN MC SEE COMMENTS 09/25/20 11:15 09/25/20 13:54 DC Lorazepam (Ativan Inj) 1 mg 1X ONCE IVP 09/25/20 12:15 09/25/20 12:16 DC 09/25/20 12:15 Morphine Sulfate (Morphine Sulfate) 4 mg 1X ONCE IV 09/25/20 12:15 09/25/20 12:16 DC 09/25/20 12:16 Vital Signs: Vital Signs Date Time Temp Pulse Resp B/P (MAP) Pulse Ox O2 Delivery O2 Flow Rate FiO2 09/25/20 08:45 97.9 109 16 138/81 (100) 96 Room Air 97.9 EKG: EKG: [] Radiology/Procedures: Radiology/Procedures: [][facility] [address] [place] [address] IMAGING REPORT Signed PATIENT: DENISHA MCFARLAND ACCOUNT: [id number] : 1990 LOCATION: ER AGE: 30 SEX: M EXAM STATUS: REG ER ORD. PHYSICIAN: DUANE LOPEZ DO REASON: abdominal pain for 3 days PROCEDURE: CT ABD PELV W/ IV CONTRST ONLY Examination: CT ABD PELV W/ IV CONTRST ONLY History: abdominal pain for 3 days / IV OMNI 300 75 MLS / History: Comparison/Correlation: 12/19/2019 CT abdomen and pelvis with contrast Findings: Axial images of the abdomen and pelvis were obtained following contrast. Sagittal and coronal reformatted images were provided. The partially visualized lung bases are unremarkable. Very small right pleural effusion is present. Minimal perihepatic ascites is noted. Marked hepatic cirrhosis is present. Heterogeneity of the liver is present diffusely. Heterogeneous nodular left compared to previous exam. Splenomegaly is evident. Spleen measures 17.5 cm longitudinal. Significant, large and numerous varices are noted about the distal esophagus. Numerous varices involving the upper abdomen about the splenic hilum. Edematous appearance of the mesentery is noted. 2.6 cm diameter gallstone is present in the gallbladder neck. Circumferential wall thickening of the ascending colon and hepatic flexure evident. Urinary bladder is unremarkable. Moderate quantity of stool in the colon noted. No extraluminal gas. No extraluminal gas or obstruction. Sacralization of L5 noted. Disc space narrowing at L3-4 noted. Impression: Circumferential wall thickening of the ascending colon is notable and concerning for colitis. Hepatic cirrhosis and findings of portal hypertension including significant varices and splenomegaly. There is no definite finding for new hepatic mass lesion. Heterogeneity of the liver is less evident as compared to previous exam. Small right pleural effusion. Small amount of ascites. Somewhat high density of the mesentery is increased compared previous exam. Cholelithiasis. RS Compliance Statement: One or more of the following individualized dose reduction techniques were utilized for this examination: 1. Automated exposure control 2. Adjustment of the mA and/or kV according to patient size 3. Use of iterative reconstruction technique Electronically signed by: Aleks Potter MD (09/25/2020 11:41 AM) [id number] DICTATED and SIGNED BY: ALEKS POTTER MD DATE: 09/25/20 114 Course & Med Decision Making: Course & Med Decision Making Pertinent Labs and Imaging studies reviewed. (See chart for details) Patient is a 30-year-old male who present to ER for evaluation of abdominal pain, CT scan of his abdomen pelvic show evidence of colitis. Patient will be discharged home with prescription for Flagyl and Cipro. Patient will need to follow-up with her family physician for further evaluation and treatment. Judit Disclaimer: Dragjudy Disclaimer: This electronic medical record was generated, in whole or in part, using a voice recognition dictation system. Departure Departure Impression: Primary Impression: Abdominal pain Additional Impression: Colitis Disposition: 01 DC HOME SELF CARE/HOMELESS Condition: IMPROVED Referrals: NO PCP (PCP) please call your doctor this week for follow up Patient Instructions: Abdominal Pain, Colitis Additional Instructions: Thank you for visiting our Emergency Department. We appreciate you trusting us with your care. If any additional problems come up don't hesitate to return to visit us. Please follow up with your primary care provider so they can plan additional care if needed and know about the problem that you had. If symptoms worsen come back to the Emergency Department. Any concerning symptoms that start such as chest pain, shortness of air, weakness or numbness on one side of the body, running high fevers or any other concerning symptoms return to the ER. Scripts Ciprofloxacin Hcl (CIPRO) 500 Mg Tablet 1 TAB PO BID for 7 Days, #14 TAB 0 Refills Prov: DUANE LOPEZ DO 09/25/20 Metronidazole (FLAGYL) 500 Mg Tablet 500 MG PO TID for 10 Days, #30 TAB Prov: DUANE LOPEZ DO 09/25/20 DUANE LOPEZ DO Sep 25, 2020 10:22
[2020-09-25 10:26] LABS: BACTERIA,URINE 0 /HPF (0-FEW); RBC,URINE 0 /HPF (0-2); WBC,URINE OCC /HPF (0-4)
[2020-09-25 10:27] LABS: CALCIUM 9.1 mg/dL (8.5-10.1); CREATININE 0.8 mg/dL (0.7-1.3); GFR 113.5; POTASSIUM 3.9 mmol/L (3.5-5.1)
[2020-09-25 10:34] LABS: ALBUMIN/GLOBULIN RATIO 0.7 (1.0-1.7); TOTAL BILIRUBIN 2.3 mg/dL (0.2-1.0); TOTAL PROTEIN 7.6 g/dL (6.4-8.2)
[2020-09-25 10:44] LABS: AMPHETAMINE/METHAMPHETAMINE NEG (NEG); BARBITURATES NEG (NEG); BENZODIAZEPINES NEG (NEG); CANNABINOIDS NEG (NEG); COCAINE NEG (NEG); METHADONE NEG (NEG); OPIATES NEG (NEG); PHENCYCLIDINE NEG (NEG)
[2020-09-25] MEDS ORDERED: IOHEXOL 300 MG/ML 100ML VIAL. IV ONE (11:00)
[2020-09-25] MEDS ORDERED: CONTRAST GIVEN. MC PRN (11:15)
--- NOTE | 2020-09-25 11:43 | RAD ---
Examination: CT ABD PELV W/ IV CONTRST ONLY History: abdominal pain for 3 days / IV OMNI 300 75 MLS / History: Comparison/Correlation: 12/19/2019 CT abdomen and pelvis with contrast Findings: Axial images of the abdomen and pelvis were obtained following contrast. Sagittal and coronal reformatted images were provided. The partially visualized lung bases are unremarkable. Very small right pleural effusion is present. Minimal perihepatic ascites is noted. Marked hepatic cirrhosis is present. Heterogeneity of the liver is present diffusely. Heterogeneous nodular left compared to previous exam. Splenomegaly is evident. Spleen measures 17.5 cm longitudinal. Significant, large and numerous varices are noted about the distal esophagus. Numerous varices involving the upper abdomen about the splenic hilum. Edematous appearance of the mesentery is noted. 2.6 cm diameter gallstone is present in the gallbladder neck. Circumferential wall thickening of the ascending colon and hepatic flexure evident. Urinary bladder is unremarkable. Moderate quantity of stool in the colon noted. No extraluminal gas. No extraluminal gas or obstruction. Sacralization of L5 noted. Disc space narrowing at L3-4 noted. Impression: Circumferential wall thickening of the ascending colon is notable and concerning for colitis. Hepatic cirrhosis and findings of portal hypertension including significant varices and splenomegaly. There is no definite finding for new hepatic mass lesion. Heterogeneity of the liver is less evident as compared to previous exam. Small right pleural effusion. Small amount of ascites. Somewhat high density of the mesentery is increased compared previous exam. Cholelithiasis. PQRS Compliance Statement: One or more of the following individualized dose reduction techniques were utilized for this examination: 1. Automated exposure control 2. Adjustment of the mA and/or kV according to patient size 3. Use of iterative reconstruction technique Electronically signed by: Aleks Garg MD (09/25/2020 11:41 AM) [id number]
[2020-09-25] MEDS ORDERED: MORPHINE SULFATE 4 MG/ML VIAL. IV ONE (12:15)
[2020-09-25 12:33] LABS: % BANDS 15 % (0-9); % BASOS 2 % (0-3); % EOS 4 % (0-5); % LYMPHS 23 % (24-48); % MONOS 14 % (0-10); % SEGS 42 % (35-66); PLT ESTIMATE DECREASED (ADEQUATE)
[2020-09-25 12:34] LABS: ANISOCYTOSIS SLIGHT; TOXIC GRANULATION SLIGHT
[2020-09-25 13:02] VITALS: BP 139/81
[2020-09-25] MEDS ORDERED: METR500T PO (13:02)
[2020-09-25] MEDS ORDERED: CIPR500T94 PO (13:02)
== END 2020-09-25 13:06 | disposition home or self-care (01) ==
LOC: ER 07:57
DX: K52.9 Noninfective gastroenteritis and colitis, unspecified (principal); R10.9 Unspecified abdominal pain; R11.2 Nausea with vomiting, unspecified; F10.10 Alcohol abuse, uncomplicated; F32.9 Major depressive disorder, single episode, unspecified; F20.9 Schizophrenia, unspecified; F17.200 Nicotine dependence, unspecified, uncomplicated; Z98.890 Other specified postprocedural states; Z88.8 Allergy status to other drugs, medicaments and biological substances
CPT/HCPCS: 36415; 74177; 80053; 80307; 81001; 83690; 85007; 85025; 85610; 85730; 96361; 96374; 96375; 99285; G0480; J2060; J2270; J7030; Q9967